=== PATIENT | male | born 1935 | race Caucasian/White ===

== ENCOUNTER 2018-04-07 09:41 | Emergency (ER) | payer OTHER, MEDICARE ==
[2018-04-07] MEDS ORDERED: TETANUS & DIPHTHERIA TOX,ADULT 0.5 ML VIAL ONE (10:08)
[2018-04-07] MEDS ORDERED: LIDOCAINE 1% 20 ML MDV ONE (10:08)
--- NOTE | 2018-04-07 10:37 | ER ---
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 Transition of care: patient was not received from another setting of care. Onset of symptoms was April 07, 2018 at 09:00. Initial Sepsis Screen: Does the patient meet any 2 criteria? No. Patient's initial sepsis screen is negative. Does the patient have a suspected source of infection? No. Patient's initial sepsis screen is negative. Care prior to arrival: None. 09:58 Method Of Arrival: Ambulatory 09:58 Acuity: JOLANTA 4 ch Triage Assessment: 10:01 General: Appears in no apparent distress. comfortable. 10:55 General: Behavior is calm, cooperative, appropriate for age. Pain: Complains of pain in sg dorsal aspect of proximal phalanx of left thumb. Historical: - Allergies: 10:01 No Known Allergies; - Home Meds: 10:01 Eliquis oral oral [Active]; Benicar oral oral [Active]; Sotalol Oral [Active]; gabapentin oral oral [Active]; Tylenol #3 Oral [Active]; - PMHx: 10:01 Hypertension; Atrial Fib; CVA; 12/2015; enlarged prostate; Kidney stones; - PSHx: 10:01 back sx; Hernia repair; prostate sx; - Immunization history:: Adult Immunizations up to date, Last tetanus immunization: < 10 years ago. - Social history:: Smoking status: Patient/guardian denies using tobacco, Patient/guardian denies using alcohol, street drugs. Screenin:55 Abuse screen: Denies threats or abuse. Denies injuries from another. Nutritional sg screening: No deficits noted. Tuberculosis screening: No symptoms or risk factors identified. Never had TB. Fall Risk None identified. Assessment: 10:55 Reassessment: Patient is alert, oriented x 3, equal unlabored respirations, skin aa5 warm/dry/pink. Vital Signs: 10:01 BP 123 / 84; Pulse 68; Resp 15; Temp 98.3; Pulse Ox 99% on R/A; Weight 104.33 kg; Height 6 ft. 3 in. (190.50 cm); Pain 0/10; 10:01 Body Mass Index 28.75 (104.33 kg, 190.50 cm) ED Course: 09:45 Patient arrived in ED. sb2 09:59 Triage completed. 10:01 Arm band placed on left wrist. Patient placed in an exam room, on a stretcher. 10:02 Becca Lai FNP-C is [facility]. kb 10:02 Miles Deluca MD is Attending Physician. kb 10:03 Phillip Garvin, RN is Primary Nurse. sg 10:30 Assist provider with laceration repair on left thumb using sutures. Set up tray. aa5 Performed by Becca ARCINIEGA Dressed with Adaptic, Kerlix, Neosporin, Patient tolerated well. 10:40 Patient did not have IV access during this emergency room visit. sg 10:50 Patient has correct armband on for positive identification. Bed in low position. Call sg light in reach. Pulse ox on. NIBP on. Administered Medications: 10:11 Drug: Tetanus-Diphtheria Toxoid Adult 0.5 ml {Informatics Nurse Specialist: [employer]. Exp: sg 07/01/2020. Lot #: [id number]. } Route: IM; Site: right deltoid; 10:55 Follow up: Response: No adverse reaction aa5 10:12 Drug: Lidocaine (1 %) 1 vials {Note: medication administered by Edwardo MCLEOD} Volume: sg 20 ml; Route: Infiltration; Outcome: 10:36 Discharge ordered by MD. kb 10:55 Discharged to home ambulatory, with family. aa5 10:55 Condition: good 10:55 Discharge instructions given to patient, family, Instructed on discharge instructions, follow up and referral plans. wound care, Demonstrated understanding of instructions, follow-up care, wound care. 10:57 Patient left the ED. aa5 Signatures: Becca Lai FNP-C FNP-Ckb Hammond, Christina RN RN Phillip Garvin RN RN Karmen Polo RN RN aa5 Niesha Murdock sb2 Corrections: (The following items were deleted from the chart) 10:17 09:58 Acuity: JOLANTA 3 ch ch
--- NOTE | 2018-04-07 10:37 | EDPHYS ---
Physician Documentation [facility] Name: Madi Manning Age: 82 yrs Sex: Male : 1935 Arrival Date: 04/07/2018 Time: 09:45 Bed 8 Private MD: ED Physician Miles Deluca HPI: 04/07 10:07 This 82 yrs old Male presents to ER via Ambulatory with complaints of kb LACERATION TO THUMB. 10:07 The patient has a laceration related to: working with salt grinder that slipped and got left kb thumb occurred at home, and there are no complicating factors. The injury was accidental. The laceration(s) is(are) located on the dorsal aspect of proximal phalanx of left thumb. Onset: The symptoms/episode began/occurred just prior to arrival. Associated signs and symptoms: The patient has no apparent associated signs or symptoms. The patient has not experienced similar symptoms in the past. The patient has not recently seen a physician. Historical: - Allergies: 10:01 No Known Allergies; ch - Home Meds: 10:01 Eliquis oral oral [Active]; Benicar oral oral [Active]; Sotalol Oral [Active]; ch gabapentin oral oral [Active]; Tylenol #3 Oral [Active]; - PMHx: 10:01 Hypertension; Atrial Fib; CVA; 12/2015; enlarged prostate; Kidney stones; ch - PSHx: 10:01 back sx; Hernia repair; prostate sx; ch - Immunization history:: Adult Immunizations up to date, Last tetanus immunization: < 10 years ago. - Social history:: Smoking status: Patient/guardian denies using tobacco, Patient/guardian denies using alcohol, street drugs. ROS: 10:08 Constitutional: Negative for fever, chills, and weight loss, Cardiovascular: Negative kb for chest pain, palpitations, and edema, Respiratory: Negative for shortness of breath, cough, wheezing, and pleuritic chest pain, Abdomen/GI: Negative for abdominal pain, nausea, vomiting, diarrhea, and constipation, MS/Extremity: Negative for injury and deformity, Neuro: Negative for headache, weakness, numbness, tingling, and seizure. 10:08 Skin: Positive for laceration(s), of the dorsal aspect of proximal phalanx of left thumb. Exam: 10:08 Constitutional: This is a well developed, well nourished patient who is awake, alert, kb and in no acute distress. Head/Face: Normocephalic, atraumatic. Chest/axilla: Normal chest wall appearance and motion. Nontender with no deformity. No lesions are appreciated. Cardiovascular: Regular rate and rhythm with a normal S1 and S2. No gallops, murmurs, or rubs. Normal PMI, no JVD. No pulse deficits. Respiratory: Lungs have equal breath sounds bilaterally, clear to auscultation and percussion. No rales, rhonchi or wheezes noted. No increased work of breathing, no retractions or nasal flaring. Abdomen/GI: Soft, non-tender, with normal bowel sounds. No distension or tympany. No guarding or rebound. No evidence of tenderness throughout. MS/ Extremity: Pulses equal, no cyanosis. Neurovascular intact. Full, normal range of motion. Neuro: Awake and alert, GCS 15, oriented to person, place, time, and situation. Cranial nerves II-XII grossly intact. Motor strength 5/5 in all extremities. Sensory grossly intact. Cerebellar exam normal. Normal gait. 10:08 Skin: injury, laceration(s), the wound is approximately 4 cm(s), of the dorsal aspect of proximal phalanx of left thumb, that can be described as clean, no foreign body, linear, without bleeding. Vital Signs: 10:01 BP 123 / 84; Pulse 68; Resp 15; Temp 98.3; Pulse Ox 99% on R/A; Weight 104.33 kg; ch Height 6 ft. 3 in. (190.50 cm); Pain 0/10; 10:01 Body Mass Index 28.75 (104.33 kg, 190.50 cm) Laceration: 10:35 Wound Repair of 4cm ( 1.6in ) subcutaneous laceration to dorsal aspect of proximal kb phalanx of left thumb. Linear shaped.. Distal neuro/vascular/tendon intact. Anesthesia: Wound infiltrated with 4 mls of 1% lidocaine. Wound prep: Extensive cleansing with hibiclenz by me, Wound irrigation with saline by wy, Wound explored moderately. Skin closed with 5 5-0 Prolene using interrupted sutures and sterile technique. Dressed with Neosporin, non-adherent dressing. Patient tolerated well. MDM: 10:02 Patient medically screened. kb 10:08 Data reviewed: vital signs, nurses notes. Data interpreted: Pulse oximetry: on room air kb is 99 %. Interpretation: normal. 10:35 Counseling: I had a detailed discussion with the patient and/or guardian regarding: the kb historical points, exam findings, and any diagnostic results supporting the discharge/admit diagnosis, the need for outpatient follow up, a family practitioner, to return to the emergency department if symptoms worsen or persist or if there are any questions or concerns that arise at home. 04/07 10:07 Order name: Prolene, Sutures; Complete Time: 10:12 kb 04/07 10:07 Order name: Dressing - Wound; Complete Time: 10:12 kb 04/07 10:07 Order name: Gloves, Sterile; Complete Time: 10:12 kb 04/07 10:07 Order name: Setup Suture Tray; Complete Time: 10:12 kb Administered Medications: 10:11 Drug: Tetanus-Diphtheria Toxoid Adult 0.5 ml {Registered Account Administrator: [employer]. Exp: sg 07/01/2020. Lot #: [id number]. } Route: IM; Site: right deltoid; 10:55 Follow up: Response: No adverse reaction aa5 10:12 Drug: Lidocaine (1 %) 1 vials {Note: medication administered by Edwardo NATARAJAN.} Volume: sg 20 ml; Route: Infiltration; Disposition: 22:19 Co-signature as Attending Physician, Miles Deluca MD I agree with the assessment and kdr plan of care. Disposition: 04/07/18 10:36 Discharged to Home. Impression: Laceration without foreign body of left thumb without damage to nail. - Condition is Stable. - Discharge Instructions: Laceration Care, Adult, Orax-ph-Iwne. - Medication Reconciliation Form, Thank You Letter, Antibiotic Education, Prescription Opioid Use form. - Follow up: Emergency Department; When: As needed; Reason: Worsening of condition. Follow up: Private Physician; When: 2 - 3 days; Reason: Recheck today's complaints, Continuance of care, Re-evaluation by your physician. - Notes: Have sutures removed in 10 days Keep clean and dry Watch for signs of infection, including redness, swelling, drainage and warmth Signatures: Becca Lai, DARENC DELGADO-Adelaida Reynolds, RN RN ch Phillip Garvin RN RN sg Miles Deluca MD MD [facility] Karmen Polo, JAYASHREE RN aa5 Corrections: (The following items were deleted from the chart) 10:57 10:36 04/07/2018 10:36 Discharged to Home. Impression: Laceration without foreign body aa5 of left thumb without damage to nail. Condition is Stable. Forms are Medication Reconciliation Form, Thank You Letter, Antibiotic Education, Prescription Opioid Use. Follow up: Emergency Department; When: As needed; Reason: Worsening of condition. Follow up: Private Physician; When: 2 - 3 days; Reason: Recheck today's complaints, Continuance of care, Re-evaluation by your physician. kb
== END 2018-04-07 10:57 | disposition home or self-care (01) ==
LOC: ER 09:41
PROC: 0JQK0ZZ Repair Left Hand Subcutaneous Tissue and Fascia, Open Approach (ICD-10-PCS; principal; 2018-04-07)
DX: S61.012A Laceration without foreign body of left thumb without damage to nail, initial encounter (principal); W29.8XXA Contact with other powered hand tools and household machinery, initial encounter; Y93.89 Activity, other specified; Y92.009 Unspecified place in unspecified non-institutional (private) residence as the place of occurrence of the external cause; Z23 Encounter for immunization; I10 Essential (primary) hypertension; I48.91 Unspecified atrial fibrillation; Z79.01 Long term (current) use of anticoagulants
CPT/HCPCS: 90714; 99283

== ENCOUNTER 2018-04-19 09:26 | Emergency (ER) | payer OTHER, MEDICARE ==
--- NOTE | 2018-04-19 09:39 | EDPHYS ---
Physician Documentation [facility] Name: Madi Manning Age: 82 yrs Sex: Male : 1935 Arrival Date: 04/19/2018 Time: 09:29 Bed Treatment Private MD: Goyo Salazar V ED Physician Juve Powell HPI: 04/19 09:43 This 82 yrs old Male presents to ER via Ambulatory with complaints of Suture kb Removal. 09:43 The patient has sutures on the palmar aspect of proximal phalanx of left thumb. kb Previous treatment: The patient was initially treated on April 07, 2018, the care was rendered at [facility]. Sutures/artem progress: The patient has no c/o's. The wound is well-healing with no redness, swelling, discharge, or dehiscence reported. The patient has not experienced similar symptoms in the past. The patient has been recently seen at the [facility] Emergency Department. Historical: - Allergies: 09:32 No Known Allergies; lk1 - PMHx: 09:32 Atrial Fib; CVA; 12/2015; enlarged prostate; Hypertension; Kidney stones; lk1 - PSHx: 09:32 back sx; prostate sx; Hernia repair; lk1 - Immunization history:: Adult Immunizations up to date. - Social history:: Smoking status: Patient/guardian denies using tobacco. ROS: 09:43 Constitutional: Negative for fever, chills, and weight loss, Cardiovascular: Negative kb for chest pain, palpitations, and edema, Respiratory: Negative for shortness of breath, cough, wheezing, and pleuritic chest pain, Abdomen/GI: Negative for abdominal pain, nausea, vomiting, diarrhea, and constipation, MS/Extremity: Negative for injury and deformity, Neuro: Negative for headache, weakness, numbness, tingling, and seizure. 09:43 Skin: Positive for laceration(s), sutures in place. Exam: 09:43 Constitutional: This is a well developed, well nourished patient who is awake, alert, kb and in no acute distress. Head/Face: Normocephalic, atraumatic. Chest/axilla: Normal chest wall appearance and motion. Nontender with no deformity. No lesions are appreciated. Cardiovascular: Regular rate and rhythm with a normal S1 and S2. No gallops, murmurs, or rubs. Normal PMI, no JVD. No pulse deficits. Respiratory: Lungs have equal breath sounds bilaterally, clear to auscultation and percussion. No rales, rhonchi or wheezes noted. No increased work of breathing, no retractions or nasal flaring. Abdomen/GI: Soft, non-tender, with normal bowel sounds. No distension or tympany. No guarding or rebound. No evidence of tenderness throughout. MS/ Extremity: Pulses equal, no cyanosis. Neurovascular intact. Full, normal range of motion. Neuro: Awake and alert, GCS 15, oriented to person, place, time, and situation. Cranial nerves II-XII grossly intact. Motor strength 5/5 in all extremities. Sensory grossly intact. Cerebellar exam normal. Normal gait. 09:43 Skin: Wound recheck: Suture laceration closure: the wound is healing well, the edges are well approximated, no evidence of dehiscence, no drainage, no erythema, no swelling. Vital Signs: 09:33 BP 156 / 82; Pulse 68; Resp 15; Temp 97.0(TE); Pulse Ox 96% on R/A; Weight 106.59 kg lk1 (R); Height 6 ft. 3 in. (190.50 cm) (R); Pain 0/10; 09:33 Body Mass Index 29.37 (106.59 kg, 190.50 cm) lk1 Procedures: 09:44 Suture/Staple removal: Removed 4 sutures, from palmar aspect of proximal phalanx of kb left thumb, site appears well healed, dressed with band aid, Patient tolerated well. MDM: 09:38 Patient medically screened. kb 09:44 Data reviewed: vital signs, nurses notes. Data interpreted: Pulse oximetry: on room air kb is 96 %. Interpretation: normal. Counseling: I had a detailed discussion with the patient and/or guardian regarding: the historical points, exam findings, and any diagnostic results supporting the discharge/admit diagnosis, the need for outpatient follow up, a family practitioner, to return to the emergency department if symptoms worsen or persist or if there are any questions or concerns that arise at home. Administered Medications: No medications were administered Disposition: 09:48 Co-signature as Attending Physician, Juve Powell MD. rn Disposition: 04/19/18 09:39 Discharged to Home. Impression: Encounter for removal of sutures. - Condition is Stable. - Discharge Instructions: Suture Removal, Care After. - Medication Reconciliation Form, Thank You Letter, Antibiotic Education, Prescription Opioid Use form. - Follow up: Emergency Department; When: As needed; Reason: Worsening of condition. Follow up: Private Physician; When: 2 - 3 days; Reason: Recheck today's complaints, Continuance of care, Re-evaluation by your physician. Signatures: Becca Lai FNP-Jaylene NATARAJAN-Juve Barrera MD MD rn Ivania Mart RN RN lk1 Corrections: (The following items were deleted from the chart) 09:43 09:39 04/19/2018 09:39 Discharged to Home. Impression: Encounter for removal of kb sutures. Condition is Stable. Forms are Medication Reconciliation Form, Thank You Letter, Antibiotic Education, Prescription Opioid Use. Follow up: Emergency Department; When: As needed; Reason: Worsening of condition. Follow up: Private Physician; When: 2 - 3 days; Reason: Recheck today's complaints, Continuance of care, Re-evaluation by your physician. kb
--- NOTE | 2018-04-19 09:39 | ER ---
Nurse's Notes [facility] Name: Madi Manning Age: 82 yrs Sex: Male : 1935 Arrival Date: 04/19/2018 Time: 09:29 Bed Treatment Private MD: Goyo Salazar V Diagnosis: Encounter for removal of sutures Presentation: 04/19 09:30 Presenting complaint: Patient states: "I just need to get these stitches out.". lk1 Transition of care: patient was not received from another setting of care. Onset of symptoms is unknown. Risk Assessment: Do you want to hurt yourself or someone else? Patient reports no desire to harm self or others. Initial Sepsis Screen: Does the patient meet any 2 criteria? No. Patient's initial sepsis screen is negative. Does the patient have a suspected source of infection? No. Patient's initial sepsis screen is negative. Care prior to arrival: None. 09:30 Method Of Arrival: Ambulatory lk1 09:30 Acuity: JOLANTA 5 lk1 Triage Assessment: 09:32 General: Appears in no apparent distress. Behavior is calm, cooperative, appropriate lk1 for age. Pain: Denies pain. Derm: Wound noted palmar aspect of proximal phalanx of left thumb Wound is 5 sutures to left thumb, healing well. Historical: - Allergies: 09:32 No Known Allergies; lk1 - PMHx: 09:32 Atrial Fib; CVA; 12/2015; enlarged prostate; Hypertension; Kidney stones; lk1 - PSHx: 09:32 back sx; prostate sx; Hernia repair; lk1 - Immunization history:: Adult Immunizations up to date. - Social history:: Smoking status: Patient/guardian denies using tobacco. Vital Signs: 09:33 BP 156 / 82; Pulse 68; Resp 15; Temp 97.0(TE); Pulse Ox 96% on R/A; Weight 106.59 kg lk1 (R); Height 6 ft. 3 in. (190.50 cm) (R); Pain 0/10; 09:33 Body Mass Index 29.37 (106.59 kg, 190.50 cm) lk1 ED Course: 09:29 Patient arrived in ED. mr 09:29 Goyo Salazar MD is Private Physician. mr 09:31 Triage completed. lk1 09:34 Becca Lai FNP-C [facility]. kb 09:34 Juve Powell MD is Attending Physician. kb 09:35 Arm band placed on right wrist. lk1 Administered Medications: No medications were administered Outcome: 09:39 Discharge ordered by . kb 09:43 Patient left the ED. kb Signatures: Becca Lai FNP-C [employer]OOK [employer]-Deena Lee mr Ivania Mart, RN RN lk1
== END 2018-04-19 09:43 | disposition home or self-care (01) ==
LOC: ER 09:26
DX: Z48.02 Encounter for removal of sutures (principal)
CPT/HCPCS: 99281

== ENCOUNTER 2019-01-26 16:42 | Emergency (ER) | payer OTHER, MEDICARE ==
--- OUTSIDE RECORDS SUMMARY | 2019-01-26 16:48 | XMS REPORT | Continuity of Care Document ---
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/[address] LF Active 12/24/[address] Hyperlipidemia Resolved Problem 12/29/2016 [facility] HTN (<span Resolved Problem 12/29/2016 [facility] ID="[id number]" Medical >Confirmed</span> Center ) CEREBRAL Active [facility] INFARCTION, Medical UNSPECIFIED Center Medications Medication Details Route Status Patient Ordering Order Source Instructions Provider Date Hydrochlorothiazide 1 tab, PO, Inactive 12/26[facility] Graciela 12.5 MG / Losartan Daily, 0 2016 Medical Potassium 100 MG Refill(s) Center Oral Tablet Eliquis 5 mg, 1 tab, Inactive 12/26[facility] Route: PO, Drug 2017 Medical form: TAB, Center Q12H, Dosing Weight 100, kg, Priority: NOW, Start date: 12/26/16 9:17:00 [employer]I [employer]ACCAR[employer]ER, Duration: 30 day, Stop date: 01/25/17 9:00:00 CSTNotes: Same as: Eliquis ciprofloxacin 250 250 mg=1 tab, Active 12/26[facility] [place] mg oral tablet PO, Q12H, X 3 2016 day, # 6 tab, 0 Center Refill(s) Occupational See Active 12/26[facility] Graciela Therapy Instructions, 2017 [facility] Evaluate and Treat DX: R MCA ischemic stroke, # 1 appl, 0 Refill(s) Physical Therapy See Active 12/26[facility] [address] [facility]x: right MCA stroke, # 1 appl, 0 Refill(s) apixaban 5 MG Oral 5 mg=1 tab, PO, Active 12/26[facility] Graciela Tablet [Eliquis] BID, # 60 tab, 2017 Medical 3 Refill(s) Center ciprofloxacin 250 250 mg=1 tab, Inactive 12/26[facility] [place] mg oral tablet PO, Q12H, X 10 2016 day, # 20 tab, Center 0 Refill(s) atorvastatin 40 mg 40 mg=1 tab, Active [place] oral tablet PO, Bedtime, # 2017 Medical 30 tab, 3 Center Refill(s) sotalol 80 mg oral 40 mg=0.5 tab, Active [place] tablet PO, Bedtime, # 2017 Medical 30 tab, 3 Center Refill(s) Rocephin 1 gm, Route: Inactive [place] IVPB, Drug 2016 Medical form: PDR/INJ, Center [id number], Dosing Weight 100, kg, Start date: 12/26/16 7:00:00 MINI BACCARAT DEALER, Stop date: 12/28/16 8:00:00 CSTNotes: (Same As: Rocephin). Use with 100 mL NS and infuse over 30 min MEDICATION WASTE Product Size: 1000 mg Product Wasted: ___ mg Sotalol 40 mg, Route: Inactive [place] Hydrochloride 80 MG PO, Q12H, 2016 Medical Oral Tablet Dosing Weight Center 100, kg, Start date: 12/25/16 21:00:00 MINI BACCARAT DEALER, Duration: 30 day, Stop date: 01/24/17 9:00:00 MINI [employer]ACCARAT DEALER sotalol 40 mg, 0.5 tab, No Longer [place] Route: PO, Drug Active 2016 Medical form: TAB, Center Bedtime, Start date: 12/25/16 21:00:00 MINI BACCARAT DEALER, Duration: 30 day, Stop date: 01/23/17 21:00:00 CSTNotes: (Same As: Betapace) 40 mg=1/2 x 80 mg TAB pneumococcal 0.5 mL, Route: Inactive [place] 13-valent vaccine IM, Drug Form: 2017 Medical INJ, Daily, Center Start date: 12/25/16 18:00:00 MINI BACCARAT DEALER, Duration: 1 doses or times, Stop date: 12/25/16 18:00:00 CSTNotes: (Same as: Prevnar 13) gabapentin 400 MG 400 mg, 1 cap, No Longer [place] Oral Capsule Route: PO, Drug Active 2016 Medical form: CAP, TID, Center Dosing Weight 100, kg, Start date: 12/25/16 9:00:00 MINI BACCARAT DEALER, Duration: 30 day, Stop date: 01/23/17 17:00:00 CSTNotes: (Same as: Neurontin) Aspirin 325 MG 325 mg, 1 tab, No Longer [place] Enteric Coated Route: PO, Drug Active 2016 Medical Tablet form: ECTAB, Center Daily, Dosing Weight 100, kg, Start date: 12/25/16 9:00:00 MINI BACCARAT DEALER, Duration: 30 day, Stop date: 01/23/17 9:00:00 CSTNotes: (Do Not Crush) Do not crush or chew. Streptococcus 0.5 mL, Route: Inactive [place] pneumoniae serotype IM, Drug Form: 2016 Medical 1 capsular antigen INJ, Daily, Center diphtheria [id number] Start date: protein conjugate 12/25/16 vaccine / 9:00:00 MINI BACCARAT DEALER, Streptococcus Duration: 1 pneumoniae serotype doses or times, 14 capsular antigen Stop date: diphtheria [id number] 12/25/16 protein conjugate 9:00:00 vaccine / CSTNotes: (Same Streptococcus as: Prevnar 13) pneumoniae serotype 18C capsular antigen d gabapentin 400 MG 400 mg, 1 cap, No Longer [place] Oral Capsule Route: PO, Drug Active 2016 Medical form: CAP, Center ONCE, Dosing Weight 100, kg, Start date: 12/24/16 23:47:00 MINI BACCARAT DEALER, Stop date: 12/24/16 23:47:00 CSTNotes: (Same as: Neurontin) Saline Flush 0.9% 10 ml, Route: No Longer [place] IVP, Drug Form: Active 2016 Medical INJ, Dosing Center Weight 100, kg, Q12H, Start date: 12/24/16 21:00:00 MINI BACCARAT DEALER, Duration: 30 day, Stop date: 01/23/17 9:00:00 CSTNotes: (Same as: BD Posiflush) Docusate 100 mg, 1 cap, No Longer [facility] Route: PO, Drug Active 2016 Medical form: CAP, Center Q12H, Dosing Weight 100, kg, Start date: 12/24/16 21:00:00 MINI BACCARAT DEALER, Duration: 30 day, Stop date: 01/23/17 9:00:00 CSTNotes: (Same as: Colace) (Do Not Crush) atorvastatin 40 mg, 1 tab, No Longer [facility] Route: PO, Drug Active 2016 Medical form: TAB, Center Bedtime, Dosing Weight 100, kg, Start date: 12/24/16 21:00:00 MINI BACCARAT DEALER, Stop date: 01/22/17 21:00:00 CSTNotes: (Same as: Lipitor) pneumococcal 0.5 mL, Route: No Longer [place] 13-valent vaccine IM, Drug Form: Active 2017 Medical INJ, Daily, Center Start date: 12/24/16 18:00:00 MINI BACCARAT DEALER, Duration: 1 doses or times, Stop date: 12/24/16 18:00:00 CSTNotes: (Same as: Prevnar 13) sennosides, GROUP HOME 8.6 mg, 1 tab, No Longer [facility] Route: PO, Drug Active 2016 Medical Form: TAB, Center Dosing Weight 100, kg, BID, Start date: 12/24/16 17:00:00 MINI BACCARAT DEALER, Duration: 30 day, Stop date: 01/23/17 9:00:00 CSTNotes: (Same as: Enocot) heparin sodium, 5,000 unit, 1 No Longer [place] porcine 2500 UNT/ML mL, Route: Active 2016 Medical Injectable Solution SUB-Q, Drug Center form: INJ, Q8H, Dosing Weight 100, kg, Start date: 12/24/16 16:00:00 MINI BACCARAT DEALER, Duration: 30 day, Stop date: 01/23/17 8:00:00 CSTNotes: porcine heparin Dextrose 50% 25 gm, 50 mL, No Longer [place] Syringe Route: IVP, Active 2016 Medical Drug Form: INJ, Center Dosing Weight 100, kg, PRN, PRN Blood Glucose Results, Start date: 12/24/16 15:18:00 MINI BACCARAT DEALER, Duration: 30 day, Stop date: 01/23/17 15:17:00 MINI BACCARAT DEALER Glucagon 1 mg, Route: No Longer [place] IM, Drug form: Active 2016 Medical PDR/INJ, PRN, Center Dosing Weight 100, kg, PRN Blood Glucose Results, Start date: 12/24/16 15:18:00 MINI BACCARAT DEALER, Duration: 30 day, Stop date: 01/23/17 15:17:00 MINI BACCARAT DEALER sodium phosphate + 30 mmol, 10 mL, No Longer [place] sodium chloride Route: IVPB, Active 2017 Medical 0.9% INJ 250 mL PRN, Dosing Center Weight 100, kg, PRN Abnormal Lab Result, Start date: 12/24/16 15:18:00 MINI BACCARAT DEALER, Duration: 30 day, Stop date: 01/23/17 15:17:00 MINI BACCARAT DEALER, FOR ICU USE ONLY potassium chloride 10 mEq, 50 mL, No Longer [place] Route: IVPB, Active 2016 Medical Drug form: INJ, Center PRN, Dosing Weight 100, kg, PRN Abnormal Lab Result, Via peripheral line, Start date: 12/24/16 15:18:00 MINI BACCARAT DEALER, Duration: 30 day, Stop date: 01/23/17 15:17:00 MINI BACCARAT DEALER, FOR ICU USE ONLYNotes: (Same as: KCL) Infuse over 2 hours. Calcium Gluconate 1 gm, 10 mL, No Longer [place] Route: IVPB, Active 2016 Medical PRN, Dosing Center Weight 100, kg, PRN Abnormal Lab Result, Start date: 12/24/16 15:18:00 MINI BACCARAT DEALER, Duration: 30 day, Stop date: 01/23/17 15:17:00 MINI BACCARAT DEALER, FOR ICU USE ONLYNotes: WASTE: F/P - Sink; E - Municipal Trash Bin Calcium Carbonate 500 mg, 1 tab, No Longer [place] 500 MG Chewable Route: PO, Drug Active 2016 Medical Tablet form: CHEWTAB, Center PRN, Dosing Weight 100, kg, PRN Abnormal Lab Result, FOR ICU USE ONLY, Start date: 12/24/16 15:18:00 MINI BACCARAT DEALER, Duration: 30 day, Stop date: 01/23/17 15:17:00 CSTNotes: (Same As: Tums) Calcium Carbonate 500 qf=608 mg elemental calcium Dose= mg calcium carbonate ( mg elemental calcium) Magnesium Oxide 800 mg, 2 tab, No Longer [place] Route: PO, Drug Active 2016 Medical form: TAB, PRN, Center Dosing Weight 100, kg, PRN Abnormal Lab Result, FOR ICU USE ONLY, Start date: 12/24/16 15:18:00 MINI BACCARAT DEALER, Duration: 30 day, Stop date: 01/23/17 15:17:00 CSTNotes: (Same as: Mag-Ox 400) Magnesium oxide [id number] elemental magnesium Dose=____mg magnesium oxide (___mg elemental magnesium) potassium phosphate 30 mmol, 10 mL, No Longer + sodium chloride Route: IVPB, Active 2017 Medical 0.9% INJ 250 mL PRN, Dosing Center Weight 100, kg, PRN Abnormal Lab Result, Start date: 12/24/16 15:18:00 MINI BACCARAT DEALER, Duration: 30 day, Stop date: 01/23/17 15:17:00 MINI BACCARAT DEALER, FOR ICU USE ONLYNotes: (Same as: K Phosphate.) 1 mMol phoshate has 1.47 mEq potassium Infuse over 4 hours potassium 2 pkt, Route: No Longer [place] phosphate-sodium PO, Drug Form: Active 2017 Medical phosphate 250 PDR/REC, Dosing Center mg-280 mg-160 mg Weight 100, kg, oral powder for PRN, PRN reconstitution Abnormal Lab Result, FOR ICU USE ONLY, Start date: 12/24/16 15:18:00 MINI BACCARAT DEALER, Duration: 30 day, Stop date: 01/23/17 15:17:00 CSTNotes: (Same as: Phos-NaK) Each 1.5 gm pkt has 250mg phosphorous. Mix w/2.5oz water and stir. Magnesium Sulfate 2 gm, 50 mL, No Longer [place] Route: IVPB, Active 2016 Medical Drug form: INJ, Center PRN, Dosing Weight 100, kg, PRN Abnormal Lab Result, Start date: 12/24/16 15:18:00 MINI BACCARAT DEALER, Duration: 30 day, Stop date: 01/23/17 15:17:00 MINI BACCARAT DEALER, FOR ICU USE ONLYNotes: WASTE: F/P - Sink; E - Municipal Trash Bin sotalol 80 mg oral 80 mg=1 tab, No Longer [place] tablet PO, Daily, 0 Active 2016 Medical Refill(s) [place] gabapentin 400 MG 400 mg=1 cap, Active [place] Oral Capsule PO, TID, # 90 2016 Medical cap, 1 Center Refill(s) tramadol 50 mg=1 tab, Active [place] hydrochloride 50 MG PO, BID, # 30 2016 Medical Oral Tablet tab, 0 Center Refill(s) sodium chloride 1,000 mL, Rate: No Longer [place] 0.9% 1000 ml INJ 75 ml/hr, Active 2016 Medical 1,000 mL Infuse over: Center 13.3 hr, Route: IV, Dosing Weight 100 kg, Total Volume: 1,000, Start date: 12/24/16 14:56:00 MINI BACCARAT DEALER, Duration: 30 day, Stop date: 01/23/17 14:55:00 MINI BACCARAT DEALER Flumazenil 0.2 mg, Route: Inactive [facility] IVP, PRN, 2016 Medical Dosing Weight Center 100, kg, PRN Benzodiazepine Reversal, Initial dose, Start date: 12/24/16 12:56:00 MINI BACCARAT DEALER, Duration: 30 day, Stop date: 01/23/17 12:55:00 MINI BACCARAT DEALER Naloxone 0.4 mg, Route: Inactive [facility] IVP, Q2MIN, 2016 Medical Dosing Weight Center 100, kg, PRN Narcotic Reversal, Start date: 12/24/16 12:56:00 MINI BACCARAT DEALER, Duration: 8 doses or times, Stop date: Limited # of times Ondansetron 4 mg, Route: Inactive [facility] IVP, ONCE, 2016 Medical Dosing Weight Center 100, kg, PRN Nausea & Vomiting, Start date: 12/24/16 12:56:00 MINI BACCARAT DEALER Hydromorphone 0.5 mg, Route: Inactive [facility] IVP, Q5Min, 2016 Medical Dosing Weight Center 100, kg, PRN Pain Score 7-10, Start date: 12/24/16 12:56:00 MINI BACCARAT DEALER, Duration: 4 doses or times, Stop date: Limited # of times Hydralazine 10 mg, Route: Inactive [facility] IVP, Q20Min, 2016 Medical Dosing Weight Center 100, kg, PRN Elevated BP, Start date: 12/24/16 12:56:00 MINI BACCARAT DEALER, Duration: 2 doses or times, Stop date: Limited # of times Labetalol 10 mg, Route: Inactive [place] IVP, Q5Min, 2016 Medical Dosing Weight Center 100, kg, PRN Elevated BP, Start date: 12/24/16 12:56:00 MINI BACCARAT DEALER, Duration: 5 doses or times, Stop date: Limited # of times Saline Flush 0.9% 10 ml, Route: No Longer [facility] IVP, Drug Form: Active 2017 Medical INJ, Dosing Center Weight 100, kg, PRN, PRN Line Flush, Start date: 12/24/16 12:28:00 MINI BACCARAT DEALER, Duration: 30 day, Stop date: 01/23/17 12:27:00 CSTNotes: (Same as: BD Posiflush) Sodium Chloride 1,000 mL, Rate: No Longer [facility] 0.154 MEQ/ML 75 ml/hr, Active 2016 Medical Injectable Solution Infuse over: Center 13.3 hr, Route: IV, Dosing Weight 100 kg, Total Volume: 1,000, Start date: 12/24/16 12:28:00 MINI BACCARAT DEALER, Duration: 30 day, Stop date: 01/23/17 12:27:00 MINI BACCARAT DEALER Omnipaque 300 150 ml, Route: Inactive [facility] INTRAARTERIAL, 2017 Medical Dosing Weight Center 100, kg, ONCE, Start date: 12/24/16 11:54:00 MINI BACCARAT DEALER, Stop date: 12/24/16 11:54:00 MINI BACCARAT DEALER iodixanol 100 mL, Route: Inactive [facility] IVP, Drug Form: 2017 Medical SOLN, Dosing Center Weight 100, kg, ONCALL, STAT, Start date: 12/24/16 11:29:00 MINI BACCARAT DEALER, Duration: 1 doses or times, Dose=2.2ml/kg, Max [id number] -- "To be infused by Radiology Staff ONLY" Saline Flush 0.9% 10 mL, Route: No Longer [facility] IVP, Drug Form: Active 2016 Medical INJ, kg, PRN, Center PRN Line Flush, Start date: 12/24/16 11:08:00 MINI BACCARAT DEALER, Duration: 30 day, Stop date: 01/23/17 11:07:00 CSTNotes: (Same as: BD Posiflush) Allergies, Adverse Reactions, Alerts Substance Category Reaction Severity Reaction Status Date Comments Source type Reported Immunizations Immunization Date Given Site Status Last Comments Source Updated pneumococcal 12/25/2016 Left completed Vishal [facility] 13-valent vaccine deltoid [facility] Results Order Name Results Value Reference Date Interpretation Comments Source Range CHEM PANEL Phosphorus 2.5 mg/dL 2.5 - 4.5 12/26 [facility] /[address] [place] [address] CHEM PANEL eGFR 58 12/26 Result Comment: The eGFR is calculated using the CKD-EPI formula. In most young, healthy individuals the eGFR will be >90 mL/ min/1.73m2. The eGFR declines with age. An eGFR of 60-89 may be normal in [facility] mL/min/1.7 some populations, particularly the elderly, for whom the CKD-EPI formula has not been extensively validated. Use of the eGFR is not recommended in the following populations: [address] Individuals with unstable creatinine concentrations, including patients and those with serious co-morbid conditions. Patients with extremes in muscle mass or diet. The data above are obtained from the National Kidney Disease Education Program (NKDEP) which additionally recommends that when the eGFR is used in patients with extremes of body mass index for purposes of drug dosing, the eGFR should be multiplied by the estimated BMI. CHEM PANEL BUN 17 mg/dL 7 - 22 12/[address] CHEM PANEL Glucose Lvl 95 mg/dL 70 - 99 12/[address] CHEM PANEL Potassium Lvl 3.7 meq/L 3.5 - 5.1 12/[address] CHEM PANEL Sodium Lvl 142 meq/L 135 - 145 12/[address] CHEM PANEL Creatinine 1.17 mg/dL 0.50 - 12/26 [facility] Lvl 1.40 [facility] CHEM PANEL CO2 27 meq/L 24 - 32 12/[address] CHEM PANEL Chloride Lvl 108 meq/L 95 - 109 12/[address] CHEM PANEL Calcium Lvl 8.4 mg/dL 8.5 - 10.5 12/[address] CHEM PANEL AGAP 10.7 meq/L 10.0 - 12/26 [facility] 20.0 [facility] CHEM PANEL Magnesium Lvl 2.2 mg/dL 1.8 - 2.4 12/[address] HEMATOLOGY Lymphocytes # 1.1 K/CMM 1.0 - 5.5 12/[address] HEMATOLOGY Segs-Bands # 6.9 K/CMM 1.5 - 8.1 12/[address] HEMATOLOGY Eosinophils # 0.2 K/CMM 0.0 - 0.5 12/[address] HEMATOLOGY Basophils # 0.1 K/CMM 0.0 - 0.2 12/[address] HEMATOLOGY Monocytes # 0.6 K/CMM 0.0 - 0.8 12/[address] [facility] HEMATOLOGY Basophils 0.7 % 0.0 - 1.0 12/26 [facility] HEMATOLOGY Segs 77.6 % 45.0 - 12/26 75.0 [facility] HEMATOLOGY Monocytes 7.1 % 2.0 - 12.0 12/26 [facility] HEMATOLOGY Eosinophils 1.9 % 0.0 - 4.0 12/26 [facility] HEMATOLOGY Lymphocytes 12.7 % 20.0 - 12/26 40.0 [facility] HEMATOLOGY MPV 9.1 fL 7.4 - 10.4 12/26 [facility] HEMATOLOGY Platelet 108 K/CMM 133 - 450 12/26 [facility] HEMATOLOGY RDW 13.8 % 11.5 - 12/26 [facility] 14.5 [facility] HEMATOLOGY WBC 8.9 K/CMM 3.7 - 10.4 12/26 [facility] HEMATOLOGY RBC 4.84 M/CMM 4.70 - 12/26 [facility] 6.10 [facility] HEMATOLOGY Hct 43.3 % 42.0 - 12/26 [facility] 54.0 [facility] HEMATOLOGY MCH 30.0 pg 27.0 - 12/26 [facility] 31.0 [facility] HEMATOLOGY Hgb 14.5 g/dL 14.0 - 12/26 [facility] 18.0 [facility] HEMATOLOGY MCHC 33.6 g/dL 32.0 - 12/26 [facility] 36.0 [facility] HEMATOLOGY MCV 89.4 fL 80.0 - 12/26 [facility] 94.0 [facility] PARATHYROID Ca Norm WB 1.15 1. - 12/26 [facility] PROFILE mMol/L 1. [facility] PARATHYROID Ca Ion WB 1.19 1.05 - 12/26 [facility] PROFILE mMol/L 1. [facility] URINE AND UA Mucus Few /LPF None Seen 12/26 [facility] STOOL /LPF /2016 [facility] URINE AND UA Sq Epi None Seen 12/26 [facility] STOOL /2016 [facility] URINE AND UA <=1.0 0.1 - 1.0 12/26 [facility] STOOL Urobilinogen mg/dL /2016 [facility] URINE AND UA Bacteria Occasional None Seen 12/26 [facility] STOOL /HPF /HPF /2016 [facility] URINE AND UA RBC 1 /HPF 0 - 2 12/26 [facility] URINE AND UA Nitrite Negative Negative 12/26 [facility] (12/25/16 6:01 PM) [place] URINE AND UA WBC 9 /HPF 0 - 5 12/26 [facility] URINE AND UA Leuk Est Large Negative 12/26 [facility] *ABN* [place] (12/25/16 6:01 PM) URINE AND UA Blood Negative Negative 12/26 [facility] (12/25/16 6:01 PM) [place] URINE AND UA Bili Negative Negative 12/26 [facility] *NA* [place] (12/25/16 6:01 PM) URINE AND UA Ketones Negative Negative 12/26 [facility] mg/dL mg/dL [facility] URINE AND UA pH 6.0 5.0 - 8.0 12/26 [facility] URINE AND UA Glucose Negative Negative 12/26 [facility] mg/dL mg/dL [facility] URINE AND UA Protein Negative Negative 12/26 [facility] mg/dL mg/dL [facility] URINE AND UA Turbidity Clear Clear 12/26 [facility] (12/25/16 6:01 PM) [place] URINE AND UA Color Yellow Yellow 12/26 [facility] *NA* [place] (12/25/16 6:01 PM) URINE AND UA Spec Grav 1.012 <=1.030 12/26 [facility] BACTERIAL - MRSA by PCR Negative 12/25 [facility] (12/25/16 1:53 PM) [place] CHEM PANEL eGFR 66 12/25 Result Comment: The eGFR is calculated using the CKD-EPI formula. In most young, healthy individuals the eGFR will be >90 mL/ min/1.73m2. The eGFR declines with age. An eGFR of 60-89 may be normal in [facility] mL/min/1. some populations, particularly the elderly, for whom the CKD-EPI formula has not been extensively validated. Use of the eGFR is not recommended in the following populations: [address] Individuals with unstable creatinine concentrations, including patients and those with serious co-morbid conditions. Patients with extremes in muscle mass or diet. The data above are obtained from the National Kidney Disease Education Program (NKDEP) which additionally recommends that when the eGFR is used in patients with extremes of body mass index for purposes of drug dosing, the eGFR should be multiplied by the estimated BMI. CHEM PANEL Calcium Lvl 8.6 mg/dL 8.5 - 10.5 12/25 [facility] CHEM PANEL AGAP 13.0 meq/L 10.0 - 12/25 [facility] 20.0 [facility] CHEM PANEL Potassium Lvl 4.0 meq/L 3.5 - 5.1 12/[address] CHEM PANEL Chloride Lvl 109 meq/L 95 - 109 12/25 [facility]2016 [facility] CHEM PANEL CO2 24 meq/L 24 - 32 12/[address] CHEM PANEL Creatinine 1.05 mg/dL 0.50 - 12/25 [facility] Lvl 1.40 [facility] CHEM PANEL BUN 14 mg/dL 7 - 12/[address] CHEM PANEL Sodium Lvl 142 meq/L 135 - 145 12/[address] CHEM PANEL Glucose Lvl 107 mg/dL 70 - 99 12/[address] CHEM PANEL Phosphorus 2.4 mg/dL 2.5 - 4.5 12/[address] CHEM PANEL Globulin 3.0 g/dL 2.7 - 4.2 12/[address] CHEM PANEL A/G Ratio 1.0 0.7 - 1.6 12/[address] CHEM PANEL AGAP 10.4 meq/L 10.0 - 12/25 [facility] .0 [facility] CHEM PANEL B/C Ratio 20 6 - 25 12/[address] CHEM PANEL eGFR 62 12/25 Result Comment: The eGFR is calculated using the CKD-EPI formula. In most young, healthy individuals the eGFR will be >90 mL/ min/1.73m2. The eGFR declines with age. An eGFR of 60-89 may be normal in [facility] mL/min/1. some populations, particularly the elderly, for whom the CKD-EPI formula has not been extensively validated. Use of the eGFR is not recommended in the following populations: [address] Individuals with unstable creatinine concentrations, including patients and those with serious co-morbid conditions. Patients with extremes in muscle mass or diet. The data above are obtained from the National Kidney Disease Education Program (NKDEP) which additionally recommends that when the eGFR is used in patients with extremes of body mass index for purposes of drug dosing, the eGFR should be multiplied by the estimated BMI. CHEM PANEL CO2 24 meq/L 24 - 32 12/[address] CHEM PANEL Total Protein 5.9 g/dL 6.4 - 8.4 12/[address] CHEM PANEL Calcium Lvl 7.9 mg/dL 8.5 - 10.5 12/[address] CHEM PANEL AST 12 unit/L 0 - 37 12/[address] CHEM PANEL ALT 15 unit/L 0 - 65 12/[address] CHEM PANEL Alk Phos 51 unit/L 39 - 136 12/[address] CHEM PANEL Albumin Lvl 2.9 g/dL 3.5 - 5.0 12/[address] CHEM PANEL Bili Total 0.8 mg/dL 0.2 - 1.3 12/[address] CHEM PANEL Glucose Lvl 117 mg/dL 70 - 99 12/[address] CHEM PANEL BUN 22 mg/dL 7 - 22 12/[address] CHEM PANEL Creatinine 1.11 mg/dL 0.50 - 12/25 [facility] Lvl 1.40 [facility] CHEM PANEL Sodium Lvl 138 meq/L 135 - 145 12/[address] CHEM PANEL Potassium Lvl 3.4 meq/L 3.5 - 5.1 12/[address] CHEM PANEL Chloride Lvl 107 meq/L 95 - 109 12/[address] CHEM PANEL Phosphorus 2.1 mg/dL 2.5 - 4.5 12/[address] CHEM PANEL Magnesium Lvl 2.2 mg/dL 1.8 - 2.4 12/[address] HEMATOLOGY Basophils # 0.1 K/CMM 0.0 - 0.2 12/[address] HEMATOLOGY Eosinophils # 0.2 K/CMM 0.0 - 0.5 12/[address] HEMATOLOGY Monocytes # 0.7 K/CMM 0.0 - 0.8 12/[address] HEMATOLOGY Lymphocytes # 1.5 K/CMM 1.0 - 5.5 12/25 [facility] HEMATOLOGY Eosinophils 2.4 % 0.0 - 4.0 12/25 [facility] HEMATOLOGY Monocytes 6.8 % 2.0 - 12.0 12/25 [facility] HEMATOLOGY Segs-Bands # 7.7 K/CMM 1.5 - 8.1 12/25 [facility] HEMATOLOGY Basophils 1.1 % 0.0 - 1.0 12/25 [facility] HEMATOLOGY Segs 74.9 % 45.0 - 12/25 [facility] 75.0 [facility] HEMATOLOGY Lymphocytes 14.8 % 20.0 - 12/25 [facility] 40.0 [facility] HEMATOLOGY MCHC 34.9 g/dL 32.0 - 12/25 36.0 [facility] HEMATOLOGY MCH 30.8 pg 27.0 - 12/25 [facility] [facility]0 [facility] HEMATOLOGY Platelet 128 K/CMM 133 - 450 12/25 [facility] HEMATOLOGY RDW 14.1 % 11.5 - 12/25 14.5 [facility] HEMATOLOGY RBC 4.74 M/CMM 4.70 - 12/25 [place] 6.10 [facility] HEMATOLOGY WBC 10.3 K/CMM 3.7 - 10.4 12/25 [facility] HEMATOLOGY MPV 9.3 fL 7.4 - 10.4 12/25 [facility] HEMATOLOGY Hgb 14.6 g/dL 14.0 - 12/25 18.0 [facility] HEMATOLOGY MCV 88.3 fL 80.0 - 12/25 [facility] 94.0 [facility] HEMATOLOGY Hct 41.8 % 42.0 - 12/25 [place] 54.0 [facility] PARATHYROID Ca Ion WB 1.16 . - 12/25 [facility] PROFILE mMol/L . [facility] PARATHYROID Ca Norm WB 1.17 . - 12/25 [facility] PROFILE mMol/L . [facility] Brain wo Brain wo EXAM: MRI BRAIN WITHOUT CONTRAST 12/24 - [facility] contrast contrast MRI /2016 - [facility] DATE: 12/24/2016 12:28 PM [employer]ER Read by: Marlon Fay MD Dictated Date/time: 12/25/16 07:59 Electronically Signed by: Marlon Fay MD 12/25/16 08:38 FINAL REPORT INDICATION: 81 years old Male patient with history of Altered level of consciousness. COMPARISON: CT head 12/24/2016 TECHNIQUE: Multiplanar, multisequence MRI of the brain without contrast. FINDINGS: Multifocal areas of diffusion restriction are seen within the right basal ganglia including the right caudate and putamen are noted compatible with acute/ subacute ischemic infarct. No definite hemorrhag ic transformation is identified. No evidence of intracranial hemorrhage. No parenchymal mass, mass effect or midline shift is present. Mild periventricular and subcortical white matter T/FLAIR hyperinte nsity, nonspecific and most commonly secondary to chronic microvascular ischemic changes. No pathologic extra axial fluid is identified. Major intracranial vascular flow voids are preserved. There is pr ominent fatty tissue compatible with lipoma in the left retromaxillary space measuring about 2.8 x 2.1 cm displacing the posterior wall of the left major sinus inferiorly. There is also inferior displac ement of the left orbital floor by excessive intraorbital fatty tissue compared to the right. Otherwise the paranasal sinuses are clear. Small left mastoid effusion is identified. IMPRESSION: 1. Multifocal areas of diffusion restriction are seen within the right basal ganglia compatible with acute/subacute ischemic infarct. No definite hemorrhagic transformation is identified at this time. 2. A 2.8 cm fatty tissue in the left retromaxillary space displacing the posterior wall of the left maxillary sinus anteriorly compatible with lipoma. Inferior displacement of the left orbital floor by extra fatty tissue in the inferior aspect of the left orbit compared to the right. Ophthalmology exam would be helpful to evaluate for enophthalmos. CHEM PANEL Bili Direct 0.2 mg/dL 0.0 - 0.3 12/[address] CHEM PANEL Alk Phos 51 unit/L 39 - 136 12/[address] CHEM PANEL Bili Total 1.0 mg/dL 0.2 - 1.3 12/[address] CHEM PANEL ALT 12 unit/L 0 - 65 12/[address] CHEM PANEL AST 13 unit/L 0 - 37 12/[address] CHEM PANEL Albumin Lvl 3.1 g/dL 3.5 - 5.0 12/[address] CHEM PANEL Total Protein 6.2 g/dL 6.4 - 8.4 12/24 [facility] CHEM PANEL Globulin 3.1 g/dL 2.7 - 4.2 12/24 [facility] CHEM PANEL A/G Ratio 1.0 0.7 - 1.6 12/24 [facility] CHEM PANEL Bili Indirect 0.8 mg/dL 0.0 - 1.0 12/24 [facility] LIPIDS CHD Risk 2.65 4.00 - 12/24 [place] 7.30 [facility] LIPIDS HDL 52 mg/dL >=61 mg/dL 12/24 [facility] LIPIDS Chol 138 mg/dL <=199 12/24 [facility] mg/dL [facility] LIPIDS VLDL 12 12/24 [facility] LIPIDS Trig 59 mg/dL <=149 12/24 [facility] mg/dL [facility] LIPIDS LDL 74 mg/dL <=99 mg/dL 12/24 [facility] (Calculated) [facility] SPECIAL Hgb A1C 5.1 % <=5.6 % 12/24 [facility] CHEMISTRY [facility] BLOOD BANK ABO/Rh A POS 12/24 [facility] RESULTS [facility] BLOOD BANK Antibody Scrn Negative 12/24 [facility] RESULTS [facility] (12/24/16 11:20 AM) Center CHEM PANEL POC 1.1 mg/dL 0.5 - 1.4 12/24 [facility] Creatinine [facility] CARDIAC Troponin-I null 0.00 - 12/24 [facility] ENZYMES 0.40 [facility] CARDIAC CK MB null 0.5 - 3.6 12/24 [facility] ENZYMES [facility] CARDIAC Total CK 36 unit/L 12 - 191 12/24 [facility] ENZYMES [facility] CARDIAC CK-MB INDEX null 0.0 - 2.5 12/24 [facility] ENZYMES [facility] HEMATOLOGY PT 14.9 s 12.0 - 12/24 [place] 14.7 [facility] HEMATOLOGY INR 1.15 0.85 - 12/24 [place] 1.17 [facility] HEMATOLOGY PTT 32.1 s 22.9 - 12/24 [place] 35.8 [facility] HEMATOLOGY MCV 89.5 fL 80.0 - 12/24 [place] 94.0 [facility] HEMATOLOGY RDW 14.1 % 11.5 - 12/24 [place] 14.5 [facility] HEMATOLOGY MCHC 33.6 g/dL 32.0 - 12/24 36.0 [facility] HEMATOLOGY MCH 30.1 pg 27.0 - 12/24 31.0 [facility] HEMATOLOGY MPV 8.6 fL 7.4 - 10.4 12/24 2016 [facility] HEMATOLOGY Platelet 127 K/CMM 133 - 450 12/24 2016 [facility] HEMATOLOGY Hct 41.7 % 42.0 - 12/24 54.0 [facility] HEMATOLOGY Hgb 14.0 g/dL 14.0 - 12/24 [facility] 18.0 [facility] HEMATOLOGY RBC 4.65 M/CMM 4.70 - 12/24 [facility] 6.10 [facility] HEMATOLOGY WBC 9.3 K/CMM 3.7 - 10.4 12/24 [facility] HEMATOLOGY Monocytes 5.3 % 2.0 - 12.0 12/[address] HEMATOLOGY Eosinophils 2.8 % 0.0 - 4.0 12/24 [facility] HEMATOLOGY Basophils 0.8 % 0.0 - 1.0 12/[address] HEMATOLOGY Lymphocytes 11.1 % 20.0 - 12/24 [facility] 40.0 [facility] HEMATOLOGY Eosinophils # 0.3 K/CMM 0.0 - 0.5 12/24 2016 [facility] HEMATOLOGY Basophils # 0.1 K/CMM 0.0 - 0.2 12/[address] HEMATOLOGY Segs-Bands # 7.4 K/CMM 1.5 - 8.1 12/[address] HEMATOLOGY Lymphocytes # 1.0 K/CMM 1.0 - 5.5 12/[address] HEMATOLOGY Monocytes # 0.5 K/CMM 0.0 - 0.8 12/[address] HEMATOLOGY Segs 80.0 % 45.0 - 12/24 [facility] 75.0 [facility] Chest 1view Chest 1view EXAM: XR CHEST 1 VIEW 12/24 - [facility] DX DX - [facility] DATE: 12/24/2016 11:08 AM [employer] Read by: Willis Cardoso MD Dictated Date/time: 12/24/16 14:23 Electronically Signed by: Willis Cardoso MD 12/24/16 14:23 FINAL REPORT INDICATION: CVA COMPARISON: None TECHNIQUE: AP chest FINDINGS: There is left basilar atelectasis versus scarring. Rest of the lungs are clear. No pleural effusions or pneumothorax. Cardiomediastinal silhouette is normal limits. No acute osseous abnormality. Soft tissues are within normal limits. IMPRESSION: Left basilar atelectasis versus scarring. Angiogram Angiogram EMERGENT CEREBRAL REVASCULARIZATION 12/24 - [facility] /2016 - Medical artery artery This report was dictated by a Brand Mgr/ Fellow. I have personally reviewed the images as Center bilateral bilateral VR well as the Resident's interpretation and agree with the findings. VR Read by: Maury Griffin MD Resident: Maury Griffin MD Dictated Date/time: 12/24/16 12:36 DATE: 12/24/2016 11:31 AM [employer] Electronically Signed by: Alistair Carpio MD 12/25/16 10:07 FINAL REPORT HISTORY:81 years Male with acute onset of left-sided hemiplegia. 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 INDICATION: Acute ischemic stroke within the appropriate time frame and meeting established criteria. ATTENDING SURGEON: Alistair Carpio M.D. Attending physician was present throughout the entire procedure and interpreted the angiographic results. FELLOW SURGEON: Dr. Maury Mckeon Attending physician was present throughout the entire procedure and interpreted the angiographic results. CONSENT: The risks, benefits, and alternatives of the procedure were described to the medical proxy in detail. These risks include but are not limited to the following: vascular damage, stroke, intracr anial hemorrhage, coma, , radiation injury, contrast induced renal dysfunction and leg hematoma/vascular compromise necessitating further intervention or resulting in loss of limb. The medical proxy provided informed consent to the procedure. PROCEDURE IN DETAIL: After obtaining written informed consent, the patient was brought to the neuroangiography suite and placed on the angio table in a supine position. Time out protocol was performed to confirm the patient 's identity, the procedure site, and the indication. General anesthesia was administered by the anesthesia team with the lance crewmember/mlrs sergeant present. The patient's systolic arterial blood pressure was kept between 140- 180 mmHg. The groin was prepped and draped in the usual sterile fashion. The Left common femoral artery was accessed by using singlewall micropuncture technique and an 9 Portuguese Cor dis sheath was placed. Under fluoroscopic and roadmap guidance, A 5 Portuguese Long Vert guide catheter coaxially advanced with a 0.035 " Terumo Glidewire telescoped within an 8 Portuguese Balloon guide ca theter to select the Right Internal carotid artery. Digital angiograms in AP, lateral and oblique planes were performed. After reviewing all the angiography data, complete occlusion of the right internal carotid artery communicating segment was confirmed. Therefore proceeding with mechanical thrombectomy is indicated. Nit roglycerine was administered in order to facilitate guide catheter placement with close monitoring of systolic blood pressure. . Under roadmap guidance the guide catheter was advanced to the right inter nal carotid artery upper cervical segment the diagnostic catheter was removed. A [employer] microcatheter was coaxially advanced over a 0.014 in microwire through the guide catheter into the above mentio brittani artery. A superselective injection distal the the selected artery was performed to confirm catheter had passed the thrombus. The microwire was removed and replaced with the corresponding TREVO 6x40 Stent Retrieval device. The stent was deployed and allowed to separate the clot for approximately 5 minutes. At this point, the balloon was inflated on the guide catheter and flow reversal aspiration wa s induced by utilizing the Penumbra suction device as well as hand aspiration, simultaneously while retrieving the stent through the microcatheter. A small amount of thrombus was retrieved. Angiogram ru ns following aspiration demonstrated flow was Restored and confirmed on follow-up angiogram runs. After final review of the post-thrombectomy angiograms, the guide catheter was then withdrawn to perform a common femoral artery angiogram. The artery was deemed acceptable for application of Angio-Seal closure device. The device was employed, pressure was held, pulses were at baseline and complete hemostasis was obtained. The patient was monitored throughout the procedure by the anesthesia team and remained hemodynamically stable. No new neurological deficit was identified after the procedure, and the patient was transpo rted to the intensive care unit in stable condition. ANESTHESIA: General Anesthesia under direction of attending anesthesiologist. Pre-, intra- and post- procedure monitoring records available in chart. CONTRAST:50 mL RADIATION: AP: 1482 mGy LATERAL: 456 mGy FLUORO TIME: 17 minutes COMPLICATIONS: None immediate. TASKS: 1. Left femoral artery catheterization 2. Right internal carotid artery catheterization followed by 2-D angiogram run 3. Right middle cerebral artery superselective catheterization was marksman microcatheter 4. Right internal carotid artery mechanical thrombectomy using retrieval stent 5. Application of Angio-Seal closing device FINDINGS: Pre-treatment 1. Right internal carotid artery : Right internal carotid artery injection revealed opacification of the right internal carotid artery with complete occlusion at the communicating segment after the riaz eoff of the right posterior communicating artery . There is evidence of perfusion deficit associated with the right hemisphere and both middle cerebral artery and anterior cerebral artery territory . FINDINGS: Post-treatment 1. Right internal carotid artery : Right internal carotid artery injection revealed brisk opacification of the right internal carotid artery, right middle cerebral artery and right anterior cerebral ar bernadette . There is evidence of recanalization of the previously described occlusions achieving TICI 3 . IMPRESSION: 1. 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 Successful Recanalization of Right internal carotid TICI Grade 3 Brain Brain Stroke EXAM: CT BRAIN WITHOUT CONTRAST 12/24 [facility] Stroke wo wo /2016 - Medical contrast CT CT This report was dictated by a Brand Mgr/ Fellow. I have personally reviewed the images as Center well as the Resident's interpretation and agree with the findings. DATE: 12/24/2016 11:05 AM [employer] DEALER Read by: Dana Ortega MD Resident: Dana Ortega MD Dictated Date/time: 12/24/16 11:06 Electronically Signed by: Eugenio Mckenna MD 12/24/16 11:19 FINAL REPORT INDICATION: Acute cognitive change COMPARISON: None available TECHNIQUE: Routine axial CT images of the brain were obtained IV contrast: None. DLP: 880 mGy-cm FINDINGS: Increased attenuation is noted in the carotid terminus and right M1 segment. ASPECTS: 9 Laterality: Right Caudate: normal Internal capsule: normal Lenticular: Abnormal Insula: normal M1: normal M2: normal M3: normal M4: normal M5: normal M6: normal The the left maxillary sinus is atelectatic and there is enophthalmos of the left globe as a result. The other paranasal sinuses, contralateral orbit and mastoids are unremarkable. IMPRESSION: 1. Early acute right MCA infarct. Aspects score equals 9. No hemorrhage. 2. 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 Correlation for history of diplopia is recommended. Brain/Neck Brain/Neck EXAM: CT ANGIOGRAM OF THE BRAIN 12/24 [facility] Stroke Stroke /2017 - Medical perfusion perfusion CTA EXAM: CT ANGIOGRAM OF THE NECK Center CTA EXAM: CT PERFUSION OF THE BRAIN Read by: Eugenio Mckenna MD Dictated Date/time: 12/24/16 13:57 Electronically Signed by: Eugenio Mckenna MD 12/24/16 14:26 FINAL REPORT DATE: 12/24/2016 11:11 AM [employer]ER INDICATION: Acute cognitive change COMPARISON: Contemporaneous CT brain. TECHNIQUE: - Dynamic CT perfusion images on a limited area of the brain parenchyma are performed during bolus injection of iodinated contrast material. Color maps of relative cerebral blood flow, relative cerebral blood volume, time to peak, and mean transit time are created on an independent workstation and are submitted along with the source image data. -Rapid acquisition spiral CT images of the brain and neck were obtained between the aortic arch and the cranial vertex during intravenous infusion of iodinated contrast for the purposes of CT angiograph y. 3-D CT angiographic images are created using maximum intensity projection technique at the acquisition workstation. The source images are also presented for interpretation. IV contrast: 100 mL Visipaque 320. DOSE: Total DLP 3609 mGy*cm FINDINGS: NECK CTA: Aortic arch: The great vessels originate from the aortic arch in the standard configuration. No origin stenosis is identified. The vertebral artery origins are patent bilaterally. Carotid arteries: The cervical common carotid arteries and cervical internal carotid arteries have a normal course, caliber, and contour. Contrast density within the right internal carotid artery and, t o a lesser extent the common carotid artery is relatively diminished than the left. There are areas of calcification at the carotid bifurcations. No measurable stenosis of the carotid bifurcations or i nternal carotid arteries is present by NASCET criteria. There is no evidence of vascular injury. Vertebral arteries:The vertebral arteries are co-dominant. The vertebral arteries have a normal course, caliber and contour. A lipoma is identified on the right in the paraspinous musculature corresponding with C4, C5 and C6. The remaining soft tissues of the neck and other incidental structures are normal. BRAIN CTA: Anterior circulation: T occlusion of the right internal carotid artery is present. There is clot extending into the proximal half of the right A1 segment as well as into the medial 3 mm of the M1 segment. Caliber and contras t density of the remainder of the M1 segment is markedly diminished as it is being reperfused by collaterals. Overall contrast density to the right hemisphere is less and there are fewer peripheral branches noted in this hemisphere. No contralateral branch occlusion, vascular injury, arteritis, vascular malformation or aneurysm is identified. Posterior circulation: The most distal portion of the right vertebral artery is abnormal. There is a peripherally located filling defect along the medial aspect of the distal V4 segment approximately 4 mm proximal to the confluence. The resulting narrowing measures nearly 60% . Normal appearance and a standard branching pattern. No branch occlusion, vascular injury, arteritis, vascular malformation or aneurysm is identified. Collateral score is 2A. The deep cerebral veins and major venous sinuses are normal. CT PERFUSION: Although cerebral blood flow to the right hemisphere is markedly diminished in the territory of the right middle cerebral artery, corresponding cerebral blood volume images are almost normal. A reduction in cerebral blood flow and cerebral blood volume is seen in the posterior lateral aspect of the right putamen. A focal area of diminished cerebral blood volume is noted laterally in the right temporal lobe on image 2. There is also reduction in cerebral blood volume on the lowest image which includes the aspect of the right frontal lobe (image 3) immediately anterior to the insula. There is also a small region of diminished cerebral blood flow on the right in the M4 region with a tiny area in the a.m. 5 region . Each of the latter is less than 10 mm in extent. Conversely, the transit time and time to peak images are grossly abnormal throughout the MCA territory and its watershed regions on the right. RAPID DATA: CBF (<30%) volume: Less than 1.0 mL or none Perfusion (Tmax>6.0s) volume: 352.3 mL Mismatch Volume: 352.3 mL Mismatch Ratio: Infinite Of the affected volume, nearly half demonstrates a Tmax greater than 10 seconds (169.7). Please note, however, that the rapid data overestimates the true volume as it is including a portion of the ventricle and periventricular white matter on the left as well which is entirely normal. IMPRESSION: 1. Normal CTA of the neck apart from reduced contrast density in the right internal carotid artery resulting from distal occlusion. 2. A t-occlusion of the carotid terminus is present. Extension into the A1 and M1 segments is evident. Given the lack of cervical disease, this is felt to be a cardioembolic event. 3. Abnormal right V4 segment immediately proximal to the confluence. Again , in light of the absence of significant atherosclerotic changes elsewhere, this may represent a small intraluminal, nonocclusive, thrombus rather than merely atherosclerosis. 4.Otherwise normal CTA of the head. 5.Abnormal perfusion to the right cerebral hemisphere with essentially preserved cerebral blood volume. Large region of resulting mismatch. (All qualitative and quantitative assessments of carotid bifurcation and proximal internal carotid artery stenosis are made referencing the distal internal carotid artery {NASCET criteria}.) Vital Signs Vital Sign Value Date Comments Source Systolic (mm Hg) 123 12/26/2016 [facility] Diastolic (mm Hg) 57 12/26/2016 [facility] Respitory Rate 20 12/26/2016 [facility] Temperature Oral (F) 100.4 F 12/26/2016 [facility] Systolic (mm Hg) 116 12/26/2016 [facility] Diastolic (mm Hg) 63 12/26/2016 [facility] Respitory Rate 20 12/26/2016 [facility] Systolic (mm Hg) 127 12/26/2016 [facility] Diastolic (mm Hg) 67 12/26/2016 [facility] Respitory Rate 20 12/26/2016 [facility] Temperature Oral (F) 99.5 F 12/26/2016 [facility] Temperature Oral (F) 99.9 F 12/26/2016 [facility] Heart Rate 55 12/25/2016 [facility] Weight 100 12/24/2016 [facility] Height 190.5 cm 12/24/2016 [facility] BMI Calculated 27.56 12/24/2016 [facility] Heart Rate 75 12/24/2016 [facility] Height 182.88 cm 12/24/2016 [facility] BMI Calculated 29.9 12/24/2016 [facility] Weight 100 12/24/2016 [facility] Heart Rate 78 12/24/2016 [facility] Encounters Location Location Encounter Encounter Reason Attending ADM DC Status Source Details Type Number For Provider Date Date Visit [facility] [id number] [place] 12/24 12/26 [facility] Jair Rico [facility] Procedures Procedure Code Date Perfomer Comments Source Selective catheter 38995 12/24/2016 [facility] placement, common Medical carotid or innominate Center artery, unilateral, any approach, with angiography of the ipsilateral extracranial carotid circulation and all associated radiological supervision and interpretation, includes angiography of the c Selective catheter 44430 12/24/2016 [facility] placement, internal Medical carotid artery, Center unilateral, with angiography of the ipsilateral intracranial carotid circulation and all associated radiological supervision and interpretation, includes angiography of the extracranial carotid and ce Primary percutaneous 98010 12/24/2016 [facility] thrombectomy, noncoronary, non-intracranial, arterial or arterial bypass graft, including fluoroscopic guidance and intraprocedural pharmacological thrombolytic injection(s); initial vessel Inguinal herniotomy [id number] [facility] Manipulation of the [id number] [facility]
--- OUTSIDE RECORDS SUMMARY | 2019-01-26 16:49 | XMS REPORT | Summary of Care ---
:1935 Author Organization [facility] Address [address] [place] [id number] Encounter HQ Lex[employer]_fadi(FIN) [id number] Date(s): 12/24/16 - 12/26/[address] Professional Services provided by [facility] [place] [address]- Discharge Disposition: Home or Self Care Attending Physician: Yue Zepeda MD Admitting Physician: Yue Zepeda MD Vital Signs Most recent to oldest 1 2 3 [Reference Range]: Height 190.5 cm 182.88 cm (12/24/16 3:07 PM) (12/24/16 11:06 AM) Temperature Oral [96.4-99.1 100.4 DegF 99.5 DegF 99.9 DegF DegF] *HI* *HI* *HI* (12/26/16 11:06 AM) (12/26/16 7:19 AM) (12/26/16 3:13 AM) Blood Pressure [90-140/60-90 123/57 mmHg 116/63 mmHg 127/67 mmHg mmHg] (12/26/16 12:00 PM) (12/26/16 11:00 AM) (12/26/16 10:00 AM) Respiratory Rate [14-20 20 BRMIN 20 BRMIN 20 BRMIN BRMIN] (12/26/16 12:00 PM) (12/26/16 11:00 AM) (12/26/16 10:00 AM) Peripheral Pulse Rate 55 bpm 75 bpm 78 bpm [60-100 bpm] *LOW* (12/24/16 11:10 AM) (12/24/16 11:06 AM) (12/24/16 8:20 PM) Weight 100 kg 100 kg (12/24/16 3:07 PM) (12/24/16 11:06 AM) Body Mass Index 27.56 m2 29.9 m2 (12/24/16 3:07 PM) (12/24/16 11:06 AM) Problem List Condition Effective Dates Status Health Status Informant Hyperlipidemia(Confirmed) Resolved HTN (hypertension)(Confirmed) Resolved Allergies, Adverse Reactions, Alerts Substance Reaction Severity Status NKDA Active Medications ANES flumazenil 0.2 mg, Route: IVP, PRN, Dosing Weight 100, kg, PRN Benzodiazepine Reversal, Initial dose, Start date: 12/24/16 12:56:00 MULTIMEDIA ARTIST, Duration: 30 day, Stop date: 12:55:00 MULTIMEDIA ARTIST Start Date: 12/24/16 Stop Date: 12/24/16 Status: DiscontinuedANES hydrALAZINE 10 mg, Route: IVP, Q20Min, Dosing Weight 100, kg, PRN Elevated BP, Start date: 12/24/16 12:56:00 MULTIMEDIA ARTIST, Duration: 2 doses or times, Stop date: Limited # of times Start Date: 12/24/16 Stop Date: 12/24/16 Status: DiscontinuedANES HYDROmorphone 0.5 mg, Route: IVP, Q5Min, Dosing Weight 100, kg, PRN Pain Score 7-10, Start date: 12/24/16 12:56:00CST, Duration: 4 doses or times, Stop date: Limited # of times Start Date: 12/24/16 Stop Date: 12/24/16 Status: DiscontinuedANES labetalol 10 mg, Route: IVP, Q5Min, Dosing Weight 100, kg, PRN Elevated BP, Start date: 12:56:00 MULTIMEDIA ARTIST,Duration: 5 doses or times, Stop date: Limited # of times Start Date: 12/24/16 Stop Date: 12/24/16 Status: DiscontinuedANES naloxone 0.4 mg, Route: IVP, Q2MIN, Dosing Weight 100, kg, PRN Narcotic Reversal, Start date: 12/24/16 12:56:00 MULTIMEDIA ARTIST, Duration: 8 doses or times, Stop date: Limited # of times Start Date: 12/24/16 Stop Date: 12/24/16 Status: DiscontinuedANES ondansetron 4 mg, Route: IVP, ONCE, Dosing Weight 100, kg, PRN Nausea & Vomiting, Start date: 12/24/16 12:56:00 MULTIMEDIA ARTIST Start Date: 12/24/16 Stop Date: 12/24/16 Status: Discontinuedaspirin 325 mg tablet, enteric coated 325 mg, 1 tab, Route: PO, Drug form: ECTAB, Daily, Dosing Weight 100, kg, Start date: 12/25/16 9:00:00 MULTIMEDIA ARTIST, Duration: 30 day, Stop date: 01/23/17 9:00:00 MULTIMEDIA ARTIST Notes: (Do Not Crush) Do not crush or chew. Start Date: 12/25/16 Stop Date: 12/26/16 Status: Discontinuedatorvastatin 40 mg, 1 tab, Route: PO, Drug form: TAB, Bedtime, Dosing Weight 100, kg, Start date: 12/24/16 21:00:00 MULTIMEDIA ARTIST, Stop date: 01/22/17 21:00:00 MULTIMEDIA ARTIST Notes: (Same as: Lipitor) Start Date: 12/24/16 Stop Date: 12/26/16 Status: Discontinuedatorvastatin 40 mg oral tablet 40 mg=1 tab, PO, Bedtime, # 30 tab, 3 Refill(s) Start Date: 12/26/16 Status: Orderedcalcium carbonate 500 mg (200 mg elemental calcium) oral tablet 500 mg, 1 tab, Route: PO, Drug form: CHEWTAB, PRN, Dosing Weight 100, kg, PRN Abnormal Lab Result, FOR ICU USE ONLY, Start date: 12/24/16 15:18:00 MULTIMEDIA ARTIST, Duration: 30 day, Stop date: 01/23/17 15:17:00 MULTIMEDIA ARTIST Notes: (Same As: Tums)Calcium Carbonate 500 iq=023 mg elemental calcium Dose=_ mg calcium carbonate ( mg elemental calcium) Start Date: 12/24/16 Stop Date: 12/25/16 Status: Discontinuedcalcium carbonate 500 mg (200 mg elemental calcium) oral tablet 1,000 mg, 2 tab, Route: PO, Drug form: CHEWTAB, PRN, Dosing Weight 100, kg, PRN Abnormal Lab Result,FOR ICU USE ONLY, Start date: 12/24/16 15:18:00 MULTIMEDIA ARTIST, Duration: 30 day, Stop date: 01/23/17 15:17:00 MULTIMEDIA ARTIST Notes: (Same As: Jaron)Calcium Carbonate 500 kl=437 mg elemental calcium Dose=_ mg calcium carbonate ( mg elemental calcium) Start Date: 12/24/16 Stop Date: 12/25/16 Status: Discontinuedcalcium gluconate + sodium chloride 0.9% INJ 50 mL 1 gm, 10 mL, Route: IVPB, PRN, Dosing Weight 100, kg, PRN Abnormal Lab Result, Start date: 12/24/16 15:18:00 MULTIMEDIA ARTIST, Duration: 30 day, Stop date: 01/23/17 15:17: 00 MULTIMEDIA ARTIST, FOR ICU USE ONLY Notes: WASTE: F/P - Sink; E - Municipal Trash Bin Start Date: 12/24/16 Stop Date: 12/25/16 Status: Discontinuedciprofloxacin 250 mg oral tablet 250 mg=1 tab, PO, Q12H, X 3 day, # 6 tab, 0 Refill(s) Start Date: 12/26/16 Stop Date: 12/29/16 Status: Orderedciprofloxacin 250 mg oral tablet 250 mg=1 tab, PO, Q12H, X 10 day, # 20 tab, 0 Refill(s) Start Date: 12/26/16 Stop Date: 12/26/16 Status: DiscontinuedDextrose 50% Syringe 25 gm, 50 mL, Route: IVP, Drug Form: INJ, Dosing Weight 100, kg, PRN, PRN Blood Glucose Results, Start date: 12/24/16 15:18:00 MULTIMEDIA ARTIST, Duration: 30 day, Stop date : 01/23/17 15:17:00 MULTIMEDIA ARTIST Start Date: 12/24/16 Stop Date: 12/26/16 Status: DiscontinuedDextrose 50% Syringe 12.5 gm, 25 mL, Route: IVP, Drug Form: INJ, Dosing Weight 100, kg, PRN, PRN Blood Glucose Results, Start date: 12/24/16 15:18:00 MULTIMEDIA ARTIST, Duration: 30 day, Stop date: 01/23/17 15:17:00 MULTIMEDIA ARTIST Start Date: 12/24/16 Stop Date: 12/26/16 Status: Discontinueddocusate 100 mg, 1 cap, Route: PO, Drug form: CAP, Q12H, Dosing Weight 100, kg, Start date: 12/24/16 21:00:00CST, Duration: 30 day, Stop date: 01/23/17 9:00:00 MULTIMEDIA ARTIST Notes: (Same as: Colace) (Do Not Crush) Start Date: 12/24/16 Stop Date: 12/26/16 Status: DiscontinuedEliquis 5 mg, 1 tab, Route: PO, Drug form: TAB, Q12H, Dosing Weight 100, kg, Priority: NOW, Start date: 12/26/16 9:17:00 MULTIMEDIA ARTIST, Duration: 30 day, Stop date: 01/25/17 9: 00:00 MULTIMEDIA ARTIST Notes: Same as: Eliquis Start Date: 12/26/16 Stop Date: 12/26/16 Status: DiscontinuedEliquis 5 mg oral tablet 5 mg=1 tab, PO, BID, # 60 tab, 3 Refill(s) Start Date: 12/26/16 Status: Orderedgabapentin 400 mg oral capsule 400 mg, 1 cap, Route: PO, Drug form: CAP, TID, Dosing Weight 100, kg, Start date : 12/25/16 9:00:00 MULTIMEDIA ARTIST, Duration: 30 day, Stop date: 01/23/17 17:00:00 MULTIMEDIA ARTIST Notes: (Same as: Neurontin) Start Date: 12/25/16 Stop Date: 12/26/16 Status: Discontinuedgabapentin 400 mg oral capsule 400 mg=1 cap, PO, TID, # 90 cap, 1 Refill(s) Start Date: 12/24/16 Status: Orderedgabapentin 400 mg oral capsule 400 mg, 1 cap, Route: PO, Drug form: CAP, ONCE, Dosing Weight 100, kg, Start date: 12/24/16 23:47:00CST, Stop date: 12/24/16 23:47:00 MULTIMEDIA ARTIST Notes: (Same as: Neurontin) Start Date: 12/24/16 Stop Date: 12/25/16 Status: Completedglucagon 1 mg, Route: IM, Drug form: PDR/INJ, PRN, Dosing Weight 100, kg, PRN Blood Glucose Results, Start date: 12/24/16 15:18:00 MULTIMEDIA ARTIST, Duration: 30 day, Stop date : 01/23/17 15:17:00 MULTIMEDIA ARTIST Start Date: 12/24/16 Stop Date: 12/26/16 Status: Discontinuedheparin 5000 units/mL injectable solution 5,000 unit, 1 mL, Route: SUB-Q, Drug form: INJ, Q8H, Dosing Weight 100, kg, Start date: 12/24/16 16:00:00 MULTIMEDIA ARTIST, Duration: 30 day, Stop date: 01/23/17 8:00: 00 MULTIMEDIA ARTIST Notes: porcine heparin Start Date: 12/24/16 Stop Date: 12/26/16 Status: Discontinuedhydrochlorothiazide-losartan 12.5 mg-100 mg oral tablet 1 tab, PO, Daily, 0 Refill(s) Start Date: 12/26/16 Stop Date: 12/26/16 Status: Discontinuedmagnesium oxide 800 mg, 2 tab, Route: PO, Drug form: TAB, PRN, Dosing Weight 100, kg, PRN Abnormal Lab Result, FOR ICU USE ONLY, Start date: 12/24/16 15:18:00 MULTIMEDIA ARTIST, Duration: 30 day, Stop date: 01/23/17 15:17:00 MULTIMEDIA ARTIST Notes: (Same as: Mag-Ox 400)Magnesium oxide [id number] elemental magnesiumDose= ____mg magnesium oxide (___mg elemental magnesium) Start Date: 12/24/16 Stop Date: 12/25/16 Status: Discontinuedmagnesium sulfate 2 gm, 50 mL, Route: IVPB, Drug form: INJ, PRN, Dosing Weight 100, kg, PRN Abnormal Lab Result, Startdate: 12/24/16 15:18:00 MULTIMEDIA ARTIST, Duration: 30 day, Stop date: 01/23/17 15:17:00 MULTIMEDIA ARTIST, FOR ICU USE ONLY Notes: WASTE: F/P - Sink; E - Municipal Trash Bin Start Date: 12/24/16 Stop Date: 12/25/16 Status: DiscontinuedOccupational Therapy See Instructions, MISC, ONCALL, Evaluate and Treat DX: R MCA ischemic stroke, # 1 appl, 0 Refill(s) Start Date: 12/26/16 Status: OrderedOmnipaque 300 150 ml, Route: INTRAARTERIAL, Dosing Weight 100, kg, ONCE, Start date: 12/24/16 11:54:00 MULTIMEDIA ARTIST, Stop date: 12/24/16 11:54:00 MULTIMEDIA ARTIST Start Date: 12/24/16 Stop Date: 12/24/16 Status: CompletedPhysical Therapy See Instructions, MISC, ONCALL, outpatient physical therapy Dx: right MCA stroke, # 1 appl, 0 Refill(s) Start Date: 12/26/16 Status: Orderedpneumococcal 13-valent vaccine 0.5 mL, Route: IM, Drug Form: INJ, Daily, Start date: 12/25/16 9:00:00 MULTIMEDIA ARTIST, Duration: 1 doses or times, Stop date: 12/25/16 9:00:00 MULTIMEDIA ARTIST Notes: (Same as: Cynthia Bustos) Start Date: 12/25/16 Stop Date: 12/25/16 Status: Deletedpneumococcal 13-valent vaccine 0.5 mL, Route: IM, Drug Form: INJ, Daily, Start date: 12/25/16 18:00:00 MULTIMEDIA ARTIST, Duration: 1 doses or times, Stop date: 12/25/16 18:00:00 MULTIMEDIA ARTIST Notes: (Same as: Cynthia Bustos) Start Date: 12/25/16 Stop Date: 12/25/16 Status: Completedpneumococcal 13-valent vaccine 0.5 mL, Route: IM, Drug Form: INJ, Daily, Start date: 12/24/16 18:00:00 MULTIMEDIA ARTIST, Duration: 1 doses or times, Stop date: 12/24/16 18:00:00 MULTIMEDIA ARTIST Notes: (Same as: Cynthia Bustos) Start Date: 12/24/16 Stop Date: 12/25/16 Status: Deletedpotassium chloride 10 mEq, 50 mL, Route: IVPB, Drug form: INJ, PRN, Dosing Weight 100, kg, PRN Abnormal Lab Result, Viaperipheral line, Start date: 12/24/16 15:18:00 MULTIMEDIA ARTIST, Duration: 30 day, Stop date: 01/23/17 15:17:00 MULTIMEDIA ARTIST, FOR ICU USE ONLY Notes: (Same as: KCL) Infuse over 2 hours. Start Date: 12/24/16 Stop Date: 12/25/16 Status: Discontinuedpotassium chloride 20 mEq, 1 tab, Route: PO, Drug form: ERTAB, PRN, Dosing Weight 100, kg, PRN Abnormal Lab Result, Start date: 12/24/16 15:18:00 MULTIMEDIA ARTIST, Duration: 30 day, Stop date: 01/23/17 15:17:00 MULTIMEDIA ARTIST, FOR ICU USE ONLY Notes: (Same as: K-Dur 20)"Do Not Crush" With food and full glass of water Start Date: 12/24/16 Stop Date: 12/25/16 Status: Discontinuedpotassium chloride 20 mEq, 15 mL, Route: NJ, Drug form: LIQ, PRN, Dosing Weight 100, kg, PRN Abnormal Lab Result, Startdate: 12/24/16 15:18:00 MULTIMEDIA ARTIST, Duration: 30 day, Stop date: 01/23/17 15:17:00 MULTIMEDIA ARTIST, FOR ICU USE ONLY Notes: (Same as: Potassium Chloride) Start Date: 12/24/16 Stop Date: 12/25/16 Status: Discontinuedpotassium chloride 20 mEq, 100 mL, Route: IVPB, Drug form: INJ, PRN, Dosing Weight 100, kg, PRN Abnormal Lab Result, Via central line, Start date: 12/24/16 15:18:00 MULTIMEDIA ARTIST, Duration: 30 day, Stop date: 01/23/17 15:17:00 MULTIMEDIA ARTIST, FOR ICU USE ONLY Notes: (Same as: KCL) Infuse no faster than 10 mEq/hr if given peripherally. Start Date: 12/24/16 Stop Date: 12/25/16 Status: Discontinuedpotassium phosphate + sodium chloride 0.9% INJ 250 mL 30 mmol, 10 mL, Route: IVPB, PRN, Dosing Weight 100, kg, PRN Abnormal Lab Result , Start date: 12/24/16 15:18:00 MULTIMEDIA ARTIST, Duration: 30 day, Stop date: 01/23/17 15:17 :00 MULTIMEDIA ARTIST, FOR ICU USE ONLY Notes: (Same as: K Phosphate.) 1 mMol phoshate has 1.47 mEq potassium Infuse over 4 hours Start Date: 12/24/16 Stop Date: 12/25/16 Status: Discontinuedpotassium phosphate + sodium chloride 0.9% INJ 250 mL 45 mmol, 15 mL, Route: IVPB, PRN, Dosing Weight 100, kg, PRN Abnormal Lab Result , Start date: 12/24/16 15:18:00 MULTIMEDIA ARTIST, Duration: 30 day, Stop date: 01/23/17 15:17 :00 MULTIMEDIA ARTIST, FOR ICU USE ONLY Notes: (Same as: K Phosphate.) 1 mMol phoshate has 1.47 mEq potassium Infuse over 4 hours Start Date: 12/24/16 Stop Date: 12/25/16 Status: Discontinuedpotassium phosphate + sodium chloride 0.9% INJ 250 mL 15 mmol, 5 mL, Route: IVPB, PRN, Dosing Weight 100, kg, PRN Abnormal Lab Result , Start date: 12/24/16 15:18:00 MULTIMEDIA ARTIST, Duration: 30 day, Stop date: 01/23/17 15:17 :00 MULTIMEDIA ARTIST, FOR ICU USE ONLY Notes: (Same as: K Phosphate.) 1 mMol phoshate has 1.47 mEq potassium Infuse over 4 hours Start Date: 12/24/16 Stop Date: 12/25/16 Status: Discontinuedpotassium phosphate-sodium phosphate 250 mg-280 mg-160 mg oral powder for reconstitution 2 pkt, Route: PO, Drug Form: PDR/REC, Dosing Weight 100, kg, PRN, PRN Abnormal Lab Result, FOR ICU USE ONLY, Start date: 12/24/16 15:18:00 MULTIMEDIA ARTIST, Duration: 30 day, Stop date: 01/23/17 15:17:00 MULTIMEDIA ARTIST Notes: (Same as: Phos-NaK) Each 1.5 gm pkt has 250mg phosphorous. Mix w/2.5oz water and stir. Start Date: 12/24/16 Stop Date: 12/25/16 Status: DiscontinuedRocephin 1 gm, Route: IVPB, Drug form: PDR/INJ, [id number], Dosing Weight 100, kg, Start date: 12/26/16 7:00:00 MULTIMEDIA ARTIST, Stop date: 12/28/16 8:00:00 MULTIMEDIA ARTIST Notes: (Same As: Rocephin).Use with 100 mL NS and infuse over 30 min MEDICATION WASTE Product Size: 1000 mgProduct Wasted: ___ mg Start Date: 12/26/16 Stop Date: 12/26/16 Status: DiscontinuedSaline Flush 0.9% 10 ml, Route: IVP, Drug Form: INJ, Dosing Weight 100, kg, PRN, PRN Line Flush, Start date: 12/24/16 12:28:00 MULTIMEDIA ARTIST, Duration: 30 day, Stop date: 01/23/17 12:27: 00 MULTIMEDIA ARTIST Notes: (Same as: BD Posiflush) Start Date: 12/24/16 Stop Date: 12/26/16 Status: DiscontinuedSaline Flush 0.9% 10 ml, Route: IVP, Drug Form: INJ, Dosing Weight 100, kg, Q12H, Start date: 21:00:00 MULTIMEDIA ARTIST, Duration: 30 day, Stop date: 01/23/17 9:00:00 MULTIMEDIA ARTIST Notes: (Same as: BD Posiflush) Start Date: 12/24/16 Stop Date: 12/26/16 Status: DiscontinuedSaline Flush 0.9% 10 mL, Route: IVP, Drug Form: INJ, kg, PRN, PRN Line Flush, Start date: 11:08:00 MULTIMEDIA ARTIST, Duration: 30 day, Stop date: 01/23/17 11:07:00 MULTIMEDIA ARTIST Notes: (Same as: BD Posiflush) Start Date: 12/24/16 Stop Date: 12/26/16 Status: Discontinuedsenna 8.6 mg, 1 tab, Route: PO, Drug Form: TAB, Dosing Weight 100, kg, BID, Start date : 12/24/16 17:00:00 MULTIMEDIA ARTIST, Duration: 30 day, Stop date: 01/23/17 9:00:00 MULTIMEDIA ARTIST Notes: (Same as: Senokot) Start Date: 12/24/16 Stop Date: 12/26/16 Status: Discontinuedsodium chloride 0.9% 1000 ml INJ 1,000 mL 1,000 mL, Rate: 75 ml/hr, Infuse over: 13.3 hr, Route: IV, Dosing Weight 100 kg , Total Volume: 1,000, Start date: 12/24/16 14:56:00 MULTIMEDIA ARTIST, Duration: 30 day, Stop date: 01/23/17 14:55:00 MULTIMEDIA ARTIST Start Date: 12/24/16 Stop Date: 12/25/16 Status: Discontinuedsodium chloride 0.9% 1000 ml INJ 1,000 mL 1,000 mL, Rate: 75 ml/hr, Infuse over: 13.3 hr, Route: IV, Dosing Weight 100 kg , Total Volume: 1,000, Start date: 12/24/16 12:28:00 MULTIMEDIA ARTIST, Duration: 30 day, Stop date: 01/23/17 12:27:00 MULTIMEDIA ARTIST Start Date: 12/24/16 Stop Date: 12/25/16 Status: Discontinuedsodium phosphate + sodium chloride 0.9% INJ 250 mL 30 mmol, 10 mL, Route: IVPB, PRN, Dosing Weight 100, kg, PRN Abnormal Lab Result , Start date: 12/24/16 15:18:00 MULTIMEDIA ARTIST, Duration: 30 day, Stop date: 01/23/17 15:17 :00 MULTIMEDIA ARTIST, FOR ICU USE ONLY Start Date: 12/24/16 Stop Date: 12/25/16 Status: Discontinuedsodium phosphate + sodium chloride 0.9% INJ 250 mL 15 mmol, 5 mL, Route: IVPB, PRN, Dosing Weight 100, kg, PRN Abnormal Lab Result , Start date: 12/24/16 15:18:00 MULTIMEDIA ARTIST, Duration: 30 day, Stop date: 01/23/17 15:17 :00 MULTIMEDIA ARTIST, FOR ICU USE ONLY Start Date: 12/24/16 Stop Date: 12/25/16 Status: Discontinuedsodium phosphate + sodium chloride 0.9% INJ 250 mL 45 mmol, 15 mL, Route: IVPB, PRN, Dosing Weight 100, kg, PRN Abnormal Lab Result , Start date: 12/24/16 15:18:00 MULTIMEDIA ARTIST, Duration: 30 day, Stop date: 01/23/17 15:17 :00 MULTIMEDIA ARTIST, FOR ICU USE ONLY Start Date: 12/24/16 Stop Date: 12/25/16 Status: Discontinuedsotalol 40 mg, 0.5 tab, Route: PO, Drug form: TAB, Bedtime, Start date: 12/25/16 21:00: 00 MULTIMEDIA ARTIST, Duration: 30 day, Stop date: 01/23/17 21:00:00 MULTIMEDIA ARTIST Notes: (Same As: Betapace)40 mg=1/2 x 80 mg TAB Start Date: 12/25/16 Stop Date: 12/26/16 Status: Discontinuedsotalol 80 mg oral tablet 80 mg=1 tab, PO, Daily, 0 Refill(s) Start Date: 12/24/16 Stop Date: 12/26/16 Status: Discontinuedsotalol 80 mg oral tablet 40 mg=0.5 tab, PO, Bedtime, # 30 tab, 3 Refill(s) Start Date: 12/26/16 Status: Orderedsotalol AF 80 mg oral tablet 40 mg, Route: PO, Q12H, Dosing Weight 100, kg, Start date: 12/25/16 21:00:00 MULTIMEDIA ARTIST , Duration: 30 day, Stop date: 01/24/17 9:00:00 MULTIMEDIA ARTIST Start Date: 12/25/16 Stop Date: 12/25/16 Status: Canceledtramadol 50 mg oral tablet 50 mg=1 tab, PO, BID, # 30 tab, 0 Refill(s) Start Date: 12/24/16 Stop Date: 01/08/17 Status: OrderedVisipaque 320mg/ml 100 mL, Route: IVP, Drug Form: SOLN, Dosing Weight 100, kg, ONCALL, STAT, Start date: 12/24/16 11:29:00 MULTIMEDIA ARTIST, Duration: 1 doses or times, Dose=2.2ml/kg, Max [id number] -- "To be infused by Radiology Staff ONLY" Start Date: 12/24/16 Stop Date: 12/24/16 Status: Completed Results BLOOD BANK RESULTS Most recent to oldest [Reference Range]: 1 2 3 ABO/Rh A POS *Unknown* (12/24/16 11:20 AM) Antibody Scrn Negative (12/24/16 11:20 AM) ELECTROLYTES Most recent to oldest 1 2 3 [Reference Range]: Sodium Lvl [135-145 mEq/L] 142 mEq/L 142 mEq/L 138 mEq/L (12/26/16 12:42 AM) (12/25/16 1:53 PM) (12/25/16 12:16 AM) Potassium Lvl [3.5-5.1 3.7 mEq/L 4.0 mEq/L 3.4 mEq/L mEq/L] (12/26/16 12:42 AM) (12/25/16 1:53 PM) *LOW* (12/25/16 12:16 AM) Chloride Lvl [95-109 mEq/L] 108 mEq/L 109 mEq/L 107 mEq/L (12/26/16 12:42 AM) (12/25/16 1:53 PM) (12/25/16 12:16 AM) CO2 [24-32 mEq/L] 27 mEq/L 24 mEq/L 24 mEq/L (12/26/16 12:42 AM) (12/25/16 1:53 PM) (12/25/16 12:16 AM) AGAP [10.0-20.0 mEq/L] 10.7 mEq/L 13.0 mEq/L 10.4 mEq/L (12/26/16 12:42 AM) (12/25/16 1:53 PM) (12/25/16 12:16 AM) CHEM PANEL Most recent to oldest 1 2 3 [Reference Range]: Creatinine Lvl [0.50-1.40 1.17 mg/dL 1.05 mg/dL 1.11 mg/dL mg/dL] (12/26/16 12:42 AM) (12/25/16 1:53 PM) (12/25/16 12:16 AM) eGFR 58 mL/min/1.73m2 1 66 mL/min/1.73m2 2 62 mL/min/1.73m2 3 *NA* *NA* *NA* (12/26/16 12:42 AM) (12/25/16 1:53 PM) (12/25/16 12:16 AM) BUN [7-22 mg/dL] 17 mg/dL 14 mg/dL 22 mg/dL (12/26/16 12:42 AM) (12/25/16 1:53 PM) (12/25/16 12:16 AM) B/C Ratio [6-25] 20 (12/25/16 12:16 AM) Glucose Lvl [70-99 mg/dL] 95 mg/dL 107 mg/dL 117 mg/dL (12/26/16 12:42 AM) *HI* *HI* (12/25/16 1:53 PM) (12/25/16 12:16 AM) POC Creatinine [0.5-1.4 1.1 mg/dL mg/dL] (12/24/16 11:05 AM) Total Protein [6.4-8.4 5.9 g/dL 6.2 g/dL g/dL] *LOW* *LOW* (12/25/16 12:16 AM) (12/24/16 12:57 PM) Albumin Lvl [3.5-5.0 g/dL] 2.9 g/dL 3.1 g/dL *LOW* *LOW* (12/25/16 12:16 AM) (12/24/16 12:57 PM) Globulin [2.7-4.2 g/dL] 3.0 g/dL 3.1 g/dL (1/26/17 12:16 AM) (12/24/16 12:57 PM) A/G Ratio [0.7-1.6] 1.0 1.0 (12/25/16 12:16 AM) (12/24/16 12:57 PM) Calcium Lvl [8.5-10.5 8.4 mg/dL 8.6 mg/dL 7.9 mg/dL mg/dL] *LOW* (12/25/16 1:53 PM) *LOW* (12/26/16 12:42 AM) (12/25/16 12:16 AM) Phosphorus [2.5-4.5 mg/dL] 2.5 mg/dL 2.4 mg/dL 2.1 mg/dL (12/26/16 12:42 AM) *LOW* *LOW* (12/25/16 1:53 PM) (12/25/16 12:16 AM) Magnesium Lvl [1.8-2.4 2.2 mg/dL 2.2 mg/dL mg/dL] (12/26/16 12:42 AM) (12/25/16 12:16 AM) ALT [0-65 unit/L] 15 unit/L 12 unit/L (12/25/16 12:16 AM) (12/24/16 12:57 PM) AST [0-37 unit/L] 12 unit/L 13 unit/L (12/25/16 12:16 AM) (12/24/16 12:57 PM) Alk Phos [39-136 unit/L] 51 unit/L 51 unit/L (12/25/16 12:16 AM) (12/24/16 12:57 PM) Bili Total [0.2-1.3 mg/dL] 0.8 mg/dL 1.0 mg/dL (12/25/16 12:16 AM) (12/24/16 12:57 PM) Bili Direct [0.0-0.3 mg/dL] 0.2 mg/dL (12/24/16 12:57 PM) Bili Indirect [0.0-1.0 0.8 mg/dL mg/dL] (12/24/16 12:57 PM) 1Result Comment: The eGFR is calculated using the CKD-EPI formula. In most young , healthy individualsthe eGFR will be >90 mL/min/1.73m2. The eGFR declines with age. An eGFR of 60-89 may be normal in some populations, particularly the elderly, for whom the CKD-EPI formula has not been extensively validated. Use of the eGFR is not recommended in the following populations: Individuals with unstable creatinine concentrations, including patients and those with serious co-morbid conditions. Patients with extremes in muscle mass or diet. The data above are obtained from the National Kidney Disease Education Program ( NKDEP) which additionally recommends that when the eGFR is used in patients with extremes of body mass index for purposesof drug dosing, the eGFR should be multiplied by the estimated BMI.2Result Comment: The eGFR is calculated using the CKD-EPI formula. In most young, healthy individualsthe eGFR will be >90 mL/ min/1.73m2. The eGFR declines with age. An eGFR of 60-89 may be normal in some populations, particularly the elderly, for whom the CKD-EPI formula has not been extensively validated. Use of the eGFR is not recommended in the following populations: Individuals with unstable creatinine concentrations, including patients and those with serious co-morbid conditions. Patients with extremes in muscle mass or diet. The data above are obtained from the National Kidney Disease Education Program ( NKDEP) which additionally recommends that when the eGFR is used in patients with extremes of body mass index for purposesof drug dosing, the eGFR should be multiplied by the estimated BMI.3Result Comment: The eGFR is calculated using the CKD-EPI formula. In most young, healthy individualsthe eGFR will be >90 mL/ min/1.73m2. The eGFR declines with age. An eGFR of 60-89 may be normal in some populations, particularly the elderly, for whom the CKD-EPI formula has not been extensively validated. Use of the eGFR is not recommended in the following populations: Individuals with unstable creatinine concentrations, including patients and those with serious co-morbid conditions. Patients with extremes in muscle mass or diet. The data above are obtained from the [employer] ( [employer]) which additionally recommends that when the eGFR is used in patients with extremes of body mass index for purposesof drug dosing, the eGFR should be multiplied by the estimated BMI.CARDIAC ENZYMES Most recent to oldest [Reference Range]: 1 2 3 Total CK [12-191 unit/L] 36 unit/L (1/25/17 11:01 AM) CK MB [0.5-3.6 ng/mL] <0.5 ng/mL (12/24/16 11:01 AM) CK MB Index [0.0-2.5] <1.4 (12/24/16 11:01 AM) Troponin-I [0.00-0.40 ng/mL] <0.02 ng/mL (12/24/16 11:01 AM) LIPIDS Most recent to oldest [Reference Range]: 1 2 3 CHD Risk [4.00-7.30] 2.65 *LOW* (12/24/16 12:57 PM) Chol [<=199 mg/dL] 138 mg/dL (12/24/16 12:57 PM) Trig [<=149 mg/dL] 59 mg/dL (12/24/16 12:57 PM) HDL [>=61 mg/dL] 52 mg/dL *LOW* (12/24/16 12:57 PM) LDL (Calculated) [<=99 mg/dL] 74 mg/dL (12/24/16 12:57 PM) VLDL 12 *NA* (12/24/16 12:57 PM) SPECIAL CHEMISTRY Most recent to oldest [Reference Range]: 1 2 3 Hgb A1C [<=5.6 %] 5.1 % (12/24/16 12:57 PM) PARATHYROID PROFILE Most recent to oldest [Reference Range]: 1 2 3 Ca Ion WB [1.05-1.25 mMol/L] 1.19 mMol/L 1.16 mMol/L (12/26/16 12:42 AM) (12/25/16 12:16 AM) Ca Norm WB [1.05-1.25 mMol/L] 1.15 mMol/L 1.17 mMol/L (12/26/16 12:42 AM) (12/25/16 12:16 AM) URINE AND STOOL Most recent to oldest [Reference Range]: 1 2 3 UA Turbidity [Clear] Clear (12/25/16 6:01 PM) UA Color [Yellow] Yellow *NA* (12/25/16 6:01 PM) UA pH [5.0-8.0] 6.0 (12/25/16 6:01 PM) UA Spec Grav [<=1.030] 1.012 (12/25/16 6:01 PM) UA Glucose [Negative mg/dL] Negative mg/dL *NA* (12/25/16 6:01 PM) UA Blood [Negative] Negative (12/25/16 6:01 PM) UA Ketones [Negative mg/dL] Negative mg/dL *NA* (12/25/16 6:01 PM) UA Protein [Negative mg/dL] Negative mg/dL (12/25/16 6:01 PM) UA Urobilinogen [0.1-1.0 mg/dL] <=1.0 mg/dL *NA* (12/25/16 6:01 PM) UA Bili [Negative] Negative *NA* (12/25/16 6:01 PM) UA Leuk Est [Negative] Large *ABN* (12/25/16 6:01 PM) UA Nitrite [Negative] Negative (12/25/16 6:01 PM) UA WBC [0-5 /HPF] 9 /HPF *HI* (12/25/16 6:01 PM) UA RBC [0-2 /HPF] 1 /HPF (12/25/16 6:01 PM) UA Bacteria [None Seen /HPF] Occasional /HPF *NA* (12/25/16 6:01 PM) UA Sq Epi None Seen *NA* (12/25/16 6:01 PM) UA Mucus [None Seen /LPF] Few /LPF *NA* (12/25/16 6:01 PM) HEMATOLOGY Most recent to oldest 1 2 3 [Reference Range]: WBC [3.7-10.4 K/CMM] 8.9 K/CMM 10.3 K/CMM 9.3 K/CMM (12/26/16 12:42 AM) (12/25/16 12:16 AM) (12/24/16 11:01 AM) RBC [4.70-6.10 M/CMM] 4.84 M/CMM 4.74 M/CMM 4.65 M/CMM (12/26/16 12:42 AM) (12/25/16 12:16 AM) *LOW* (12/24/16 11:01 AM) Hgb [14.0-18.0 g/dL] 14.5 g/dL 14.6 g/dL 14.0 g/dL (12/26/16 12:42 AM) (12/25/16 12:16 AM) (12/24/16 11:01 AM) Hct [42.0-54.0 %] 43.3 % 41.8 % 41.7 % (12/26/16 12:42 AM) *LOW* *LOW* (12/25/16 12:16 AM) (12/24/16 11:01 AM) MCV [80.0-94.0 fL] 89.4 fL 88.3 fL 89.5 fL (12/26/16 12:42 AM) (12/25/16 12:16 AM) (12/24/16 11:01 AM) MCH [27.0-31.0 pg] 30.0 pg 30.8 pg 30.1 pg (12/26/16 12:42 AM) (12/25/16 12:16 AM) (12/24/16 11:01 AM) MCHC [32.0-36.0 g/dL] 33.6 g/dL 34.9 g/dL 33.6 g/dL (12/26/16 12:42 AM) (12/25/16 12:16 AM) (12/24/16 11:01 AM) RDW [11.5-14.5 %] 13.8 % 14.1 % 14.1 % (12/26/16 12:42 AM) (12/25/16 12:16 AM) (12/24/16 11:01 AM) Platelet [133-450 K/CMM] 108 K/CMM 128 K/CMM 127 K/CMM *LOW* *LOW* *LOW* (12/26/16 12:42 AM) (12/25/16 12:16 AM) (12/24/16 11:01 AM) MPV [7.4-10.4 fL] 9.1 fL 9.3 fL 8.6 fL (12/26/16 12:42 AM) (12/25/16 12:16 AM) (12/24/16 11:01 AM) Segs [45.0-75.0 %] 77.6 % 74.9 % 80.0 % *HI* (12/25/16 12:16 AM) *HI* (12/26/16 12:42 AM) (12/24/16 11:01 AM) Lymphocytes [20.0-40.0 %] 12.7 % 14.8 % 11.1 % *LOW* *LOW* *LOW* (12/26/16 12:42 AM) (12/25/16 12:16 AM) (12/24/16 11:01 AM) Monocytes [2.0-12.0 %] 7.1 % 6.8 % 5.3 % (12/26/16 12:42 AM) (12/25/16 12:16 AM) (12/24/16 11:01 AM) Eosinophils [0.0-4.0 %] 1.9 % 2.4 % 2.8 % (12/26/16 12:42 AM) (12/25/16 12:16 AM) (12/24/16 11:01 AM) Basophils [0.0-1.0 %] 0.7 % 1.1 % 0.8 % (12/26/16 12:42 AM) *HI* (12/24/16 11:01 AM) (12/25/16 12:16 AM) Segs-Bands # [1.5-8.1 6.9 K/CMM 7.7 K/CMM 7.4 K/CMM K/CMM] (12/26/16 12:42 AM) (12/25/16 12:16 AM) (12/24/16 11:01 AM) Lymphocytes # [1.0-5.5 1.1 K/CMM 1.5 K/CMM 1.0 K/CMM K/CMM] (12/26/16 12:42 AM) (12/25/16 12:16 AM) (12/24/16 11:01 AM) Monocytes # [0.0-0.8 K/CMM] 0.6 K/CMM 0.7 K/CMM 0.5 K/CMM (12/26/16 12:42 AM) (12/25/16 12:16 AM) (12/24/16 11:01 AM) Eosinophils # [0.0-0.5 0.2 K/CMM 0.2 K/CMM 0.3 K/CMM K/CMM] (12/26/16 12:42 AM) (12/25/16 12:16 AM) (12/24/16 11:01 AM) Basophils # [0.0-0.2 K/CMM] 0.1 K/CMM 0.1 K/CMM 0.1 K/CMM (12/26/16 12:42 AM) (12/25/16 12:16 AM) (12/24/16 11:01 AM) PT [12.0-14.7 seconds] 14.9 seconds *HI* (12/24/16 11:01 AM) INR [0.85-1.17] 1.15 (12/24/16 11:01 AM) PTT [22.9-35.8 seconds] 32.1 seconds (12/24/16 11:01 AM) BACTERIAL - SEROLOGY Most recent to oldest [Reference Range]: 1 2 3 MRSA by PCR Negative (12/25/16 1:53 PM) Immunizations Given and Recorded Vaccine Date Status Refusal Reason pneumococcal 13-valent vaccine 12/25/16 Given Procedures Procedure Date Related Diagnosis Body Site Primary percutaneous transluminal mechanical 12/24/16 thrombectomy, noncoronary, non-intracranial, arterial or arterial bypass graft, including fluoroscopic guidance and intraprocedural pharmacological thrombolytic injection(s); initial vessel Selective catheter placement, common carotid or 12/24/16 innominate artery, unilateral, any approach, with angiography of the ipsilateral extracranial carotid circulation and all associated radiological supervision and interpretation, includes angiography of the c Selective catheter placement, internal carotid 12/24/16 artery, unilateral, with angiography of the ipsilateral intracranial carotid circulation and all associated radiological supervision and interpretation, includes angiography of the extracranial carotid and ce Inguinal herniotomy Manipulation of the vertebrae Social History Social History Type Response Smoking Status Never smoker; Ready to change: No; Concerns about tobacco use in household: No; Exposure to Tobacco Smoke None; Cigarette Smoking Last 365 Days No; Reg Smoking Cessation Counseling No Assessment and Plan Extracted from: Title: Clinical Document Author: Jazmin Kent MD Date: 12/26/16 [facility] DIS[facility] SUMMARY Date of Admission: 12/24/16 Date of Discharge: 12/26/16 Admit Diagnosis: right MCA stroke Discharge Diagnoses: right mca stroke Consults Obtained: none Brief HPI and Hospital Course: This is an 81 yo M with a hx of HTN, afib not on AC or aspirin, hernia repair two weeks prior to admission who presents with left sided weakness, dysarthria and right gaze preference. He was borught to the ER where a CTH showed early changes for right MCA stroke with preserved aspect score of 9. Patient did not get tPA because of recent surgery. CTA showed right carotid occlusion at the terminus. Tanvi ent was taken for IAT and underwent thrombectomy. Patient's symptoms improved afterwards. Patient was not intubated before or after the procedure. MRI brain showed Multifocal areas of diffusion restrict ion are seen within the right basal ganglia compatible with acute/subacute ischemic infarct. ECHO showed a moderately dilated LA, normal ejection fraction and no PFO. EKG was only significant for sinus bradycardia. Patient was restarted on half dose of home sotalolol( 40 mg daily) . Patient was eventually transferred to the stroke unit. He was assessed by PT for falls risk. They recommended out patient PT and he was started on eliquis 5 mg BID which he was dced on. Patient was found to have a UTI for which he was started on antibiotics. Discharge Physical Examination (pertinent positives only): none Final Diagnosis: right MCA stroke Etiology of Stroke: cardio-embolic Discharge Medications: Discharge Medications Occupational Therapy :See MELY Penaloza ONCALL, Evaluate and Treat DX: R MCA ischemic stroke, 1 appl, 0 Refill(s) Ordered by: Leticia Herrera MD - 12/26/2016 09:12 ciprofloxacin 250 mg oral tablet :250 mg, 1 tab, PO, Q12H, for 3 day, 6 tab, 0 Refill(s) Ordered by: Leticia Herrera MD - 12/26/2016 09:12 Physical Therapy :See MELY Penaloza ONCALL, outpatient physical therapy Dx: right MCA stroke, 1 appl, 0 Refill(s) Ordered by: Jazmin Kent MD - 12/26/2016 09:09 Eliquis 5 mg oral tablet :5 mg, 1 tab, PO, BID, 60 tab, 3 Refill(s) Ordered by: Jazmin Kent MD 12/26/2016 09:06 atorvastatin 40 mg oral tablet :40 mg, 1 tab, PO, Bedtime, 30 tab, 3 Refill(s) Ordered by: Jazmin Kent MD - 12/26/2016 09:05 sotalol 80 mg oral tablet :40 mg, 0.5 tab, PO, Bedtime, 30 tab, 3 Refill(s) Ordered by: Jazmin Kent MD - 12/26/2016 09:04 Follow up and Important Plans for Future Care: - Follow up with [facility] in 4-6 weeks, call for an appointment. 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 - Take all medications as prescribed. - Watch for bleeding since you are now on a blood thinner, and seek medical attention for bleeding. - Use walker at all times to prevent falls. Jazmin Kent M.D Neurology PGY2 ID# [id number] Pager # [phone] STROKE ATTENDING I have seen and examined the patient. Furthermore, I have discussed the case with and reviewed the resident's note and agree with the history, exam, assessment and plan. See note below for additions a nd/or exceptions and my findings. Exam is improved and he was noted to also be walking around the unit. Starting Eliquis today and stopping aspirin. Understands importance of blood pressure control. Cleared from PT/OT with walker and family care, is very involved with the patient's care. Patient has neuropathy and has declined recommended use of walker as outpatient, we discussed the importance of using walker for stability to prevent falls while on Eliquis and he and his family demonstrated understanding of this. Regular diet thin liquids. 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 Note : called by pharmacy this after that cipro i nteracts with sotolol. Changed to microbid 7 days 100mg bid and patient has plan to f/u with PCP. [id number] Patient was discharged earlier than expected due to rapid improvement and completion of workup faster than anticipated. Yue Zepeda MD Instrument Fitter of Neurology Pager: [phone] Extracted from: Title: Clinical Document Author: Jazmin Kent MD Date: 12/26/16 Stroke Progress Note Subjective: Patient denies any new complains. No major overnight events. 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 911 was called and rendevouzed with [facility]. The patient is not a tPA candidate due to surgery in a noncompressible area < 14 days ago. IAT activated. ROS: General: No fever, no fatigue CVS: No chest pain or palpitations Respiratory: No cough or shortness of breath GI: no vomiting or abdominal pain. Medications: Medications (15) Active Scheduled Meds (9): 12/25/16 aspirin (aspirin 325 mg tablet, enteric coated) 325 mg PO Daily 12/24/16 atorvastatin 40 mg PO Bedtime 12/26/16 cefTRIAXone (Rocephin) 1 gm IVPB [id number] 12/24/16 docusate 100 mg PO Q12H 12/25/16 gabapentin (gabapentin 400 mg oral capsule) 400 mg PO TID 12/24/16 heparin (heparin 5000 units/mL injectable solution) 5,000 unit SUB-Q Q8H 12/24/16 senna 8.6 mg PO BID 12/24/16 sodium chloride (Saline Flush 0.9%) 10 ml IVP Q12H 12/25/16 sotalol 40 mg PO Bedtime Unscheduled Meds: None PRN Meds (5): 12/24/16 Dextrose 50% in Water IV (Dextrose 50% Syringe) 12.5 gm IVP PRN 12/24/16 Dextrose 50% in Water IV (Dextrose 50% Syringe) 25 gm IVP PRN 12/24/16 glucagon 1 mg IM PRN 12/24/16 sodium chloride (Saline Flush 0.9%) 10 mL IVP PRN 12/24/16 sodium chloride (Saline Flush 0.9%) 10 ml IVP PRN One Time Meds (1): 12/24/16 (Completed) gabapentin (gabapentin 400 mg oral capsule) 400 mg PO ONCE Continuous Infusions: None Objective: Vitals and Temp: Vitals Tmp(F) Pulse BP RR SpO2 FIO2 12/26 06:00 ---- 80 112/57 17 --- --- 12/26 05:00 ---- 79 121/57 19 --- --- 12/26 04:00 ---- 79 131/61 17 --- --- 12/26 03:13 99.9 --- ----- -- --- --- 12/26 03:00 ---- 76 148/65 17 --- --- 24 Hr Tmax: 99.9F (37.72c) at 12/26 03:13 Vital Signs are the last 5 in the past 48 hours. Physical Exam: HEAD - Normocephalic and atraumatic LUNGS - Clear to auscultation, no rales or rhonchi CVS - Rate rhythm regular, no murmur, equal pulses bilaterally ABDOMEN - Soft, non tender, with normal bowel sounds. No hepatosplenomegaly NEUROLOGY: AAO*3 Speech: fluent, comprehension intact, repetition and naming intact wooden tank erector: 2-12 intact Motor: Tone: Normal Power: 5/5 in all groups of muscles in all four limbs Reflexes: 2+ symmetrical bilaterally Plantar: Flexor Drift: absent Sensory: Intact light touch and pin prick sensation Intact vibration and position sense Cerebellar signs: Intact FNT, Rombergs negative Gait: normal Labs: CO2: 27 mEq/L (12/26/16 02:27:23) Chloride Lvl: 108 mEq/L (12/26/16 02:27:23) Sodium Lvl: 142 mEq/L (12/26/16 02:27:23) Glucose Lvl: 95 mg/dL (12/26/16 02:27:23) Calcium Lvl: 8.4 mg/dL Low (12/26/16 02:27:23) Potassium Lvl: 3.7 mEq/L (12/26/16 02:27:23) BUN: 17 mg/dL (12/26/16 02:27:23) AGAP: 10.7 mEq/L (12/26/16 02:27:23) Creatinine Lvl: 1.17 mg/dL (12/26/16 02:27:23) Hct: 43.3 % (12/26/16 02:05:31) Hgb: 14.5 g/dL (12/26/16 02:05:31) MCH: 30.0 pg (12/26/16 02:05:31) MCHC: 33.6 g/dL (12/26/16 02:05:31) MCV: 89.4 fL (12/26/16 02:05:31) MPV: 9.1 fL (12/26/16 02:05:31) Platelet: 108 K/CMM Low (12/26/16 02:05:31) RBC: 4.84 M/CMM (12/26/16 02:05:31) RDW: 13.8 % (12/26/16 02:05:31) WBC: 8.9 K/CMM (12/26/16 02:05:31) Basophils: 0.7 % (12/26/16 02:05:32) Basophils #: 0.1 K/CMM (12/26/16 02:05:32) Eosinophils: 1.9 % (12/26/16 02:05:32) Eosinophils #: 0.2 K/CMM (12/26/16 02:05:32) Lymphocytes: 12.7 % Low (12/26/16 02:05:32) Lymphocytes #: 1.1 K/CMM (12/26/16 02:05:32) Monocytes: 7.1 % (12/26/16 02:05:32) Monocytes #: 0.6 K/CMM (12/26/16 02:05:32) Segs: 77.6 % High (12/26/16 02:05:32) Segs-Bands #: 6.9 K/CMM (12/26/16 02:05:32) INR: 1.15 (12/24/16 11:24:40) Stroke Work up : CTH: 1. Early acute right MCA infarct. Aspects score equals 9. No hemorrhage. 2. 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 Correlation for history of diplopia is recommended. CTA: 1. Normal CTA of the neck apart from reduced contrast density in the right internal carotid artery resulting from distal occlusion. 2. A t-occlusion of the carotid terminus is present. Extension into the A1 and M1 segments is evident. Given the lack of cervical disease, this is felt to be a cardioembolic event. 3. Abnormal right V4 segment immediately proximal to the confluence. Again, in light of the absence of significant atherosclerotic changes elsewhere, this may represent a small intraluminal, nonocclusive, thrombus rather than merely atherosclerosis. 4.Otherwise normal CTA of the head. 5.Abnormal perfusion to the right cerebral hemisphere with essentially preserved cerebral blood volume. Large region of resulting mismatch. cerebral angiogram: 1. Right internal carotid artery : Right internal carotid artery injection revealed opacification of the right internal carotid artery with complete occlusion at the communicating s egment after the takeoff of the right posterior communicating artery . There is evidence of perfusion deficit associated with the right hemisphere and both middle cerebral artery and anterior cerebral artery territory . ECHO: 1) Left ventricular size and systolic function is normal. LV ejection fraction is estimated at 60%-65%. Normal left ventricular diastolic filling is observed. 2) Right ventricular is moderate to severely enlarged with normal systolic function. 3) Left atrium is moderately dilated and right atrium is severely dilated. 4) No evidence of patent foramen ovale demonstrated by saline contrast study at rest, cough and with vasalva. 5) No significant valvular abnormality is seen. 6) Right ventricular systolic pressure was estimated at 21 mmHg assuming a right atrial pressure of 3 mmHg. 7) Aortic root is normal in size. 8) There is no pericardial effusion. 9) IVC is not well seen. 10) No prior study is available for comparison. Rehab Services: PT- home with family. Needs outpatient PT for falls risk. ST- diet Assessment: 1. Right internal carotid artery : Right internal carotid artery injection revealed opacification of the right internal carotid artery with complete occlusion at the communicating segment after the riaz eoff of the right posterior communicating artery . There is evidence of perfusion deficit associated with the right hemisphere and both middle cerebral artery and anterior cerebral artery territory . Diagnosis: 81 yo with HTN pw R MCA syndrome, not a tPA candidate due to recent surgery taken to [place] for RMCA occlusion. Now has improved Etiology: TbD Plan: # Ischemic Stroke: - MRI brain with no HT - consider starting eliquis depending on risk of falls # Secondary Prevention of Stroke: - Antiplatelet agent: ASA 325 mg po daily - Statin: Lipitor 40 mg daily - BP controlled - Glucose: conrolled on SSI. #Afib: - likely the etiology of the stroke - consider starting on eliquis if no risk of falls. - On sotalol 40 mg daily for rate control. Has been running in the 50's-70's. #UTI: - Has large leukocyte esterase - started on rocephin 1 gm X 3 days # Prophylaxis: - DVT: Heparin sq, NANI, SCD - GI: Not indicated - Bowel: Colace and Senna # Code Status: Full code # Disposition: pending Jazmin Kent M.D Neurology PGY2 ID# [id number] Pager # [phone] Extracted from: Title: Stroke Team H&P Author: Deidra Simpson WHITE MIXING OPERATOR Date: 12/24/16 Stroke History & Physical Chief Complaint: R gaze, L Hemiparesis, History of Present Illness: 81 yo white male with pmh HTN, unknown arrhtymia, hernia repair 12/12/15 fully functional and independent at baseline LSN at 0830 when he walked to the bathroom, heard a commotion and checked on him and found him at 0845 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 911 was called and rendevouzed with [facility]. The patient is not a tPA candidate due to surg samira in a noncompressible area < 14 days ago. IAT activated. Review of Systems: GEN: no fever, chills, weight loss, fatigue EYES: no blurred vision, double vision CARDIO: no chest pain, palpitations PULM: no shortness of breath, cough GI: no nausea, vomiting, diarrhea, + mild post surgical abd pain : no frequency, dysuria, hematuria NEURO: see HPI SKIN: no rash or lesion MSK: no pain, swelling, redness, heat in muscles, no limited ROM, weakness, or atrophy, no cramps LYMPH/IMMUNO: No lymph node enlargement/tenderness, no heat/cold intolerance Past Medical History: HTN Past Surgical History: HErnia repair Family Medical History: unknown Social History: Denies alcohol and illicit drug use. Denies smoking. lives with , fully functional and independent Medications: occasional ASA, losartaan, sotalol Allergies:NKDA Physical Exam: GENERAL: Awake, alert in NAD HEENT: - Normocephalic and atraumatic, dry mm, no LN++, no Thyromegally LUNGS - Clear to auscultation bilaterally with no wheezes CV - S1S2 RRR, no m/r/g, equal pulses bilaterally. ABDOMEN - Soft, RLQ recent incision with edema, bruising, and steristrips, nondistended with normoactive BS NEURO: Mental Status: AA&Ox3 Language: speech is dysarthric. Naming, repitition, fluency, and comprehension intact. Cranial Nerves: PERRL 4 mm/brisk. EOMI, R forced gaze, no BTT from Left, LFD, otherwise intact Motor: full strength on R, L hemiplegia Tone: is normal and bulk is normal Sensation- +sensory neglect L hemibody Coordination: FTN intact bilaterally, no ataxia in BLE. Gait- deferred NIH Stroke Scale (NIHSS) 0 1a. Level of Consciousness; 0-alert 1-drowsy 2-stupor 3-coma 0 1b. LOC Questions month and age; 0-both 1-one 2-neither 0 1c. LOC Commands open/close eyes, resident associate/release non-paretic hand; 0-both 1- one 2-neither 2 2. Best Gaze; 0-nl 1-partial 2-forced gaze 2 3. Visual Tavares; 0-No visual loss. 1-Partial hemianopia 2-Complete 3-Bilateral 2 4. Facial Palsy; 0-none 1-minor 2-partial 3-complete 0 5. Motor - R arm; 0-No drift 1-Drift 2-Some antigravity 3-No antigravity 4- No movement 0 6. Motor - R leg; 0-No drift 1-Drift 2-Some antigravity 3-No antigravity 4- No movement 4 7. Motor - L arm; 0-No drift 1-Drift 2-Some antigravity 3-No antigravity 4- No movement 4 8. Motor - L leg; 0-No drift 1-Drift 2-Some antigravity 3-No antigravity 4- No movement 0 9. Limb Ataxia; 0 absent 1 - 1limb 2 - 2 limbs 2 10. Sensory; 0-nl 1-partial loss 2-dense loss 0 11. Best Language; 0-nl 1-mild/mod 2-severe 3-mute 1 12. Dysarthria; 0-nl 1-mild/mod 2-severe x-untestable 2 13. Extinction and Inattention (formerly Neglect); 0-none 1-partial 2- complete TOTAL SCORE 19 EKG: Javier Imaging: CT Head: By my read Aspects 9 (R insula), no hemorrhag, hyperdense R carotid terminus CTA H&N: By y read, R carotid terminus partial occlusion with partial recan of M1 and reocclusion at m2 Labs (Last four charted values) WBC 9.3 (DEC 24) Hgb 14.0 (DEC 24) Hct L 41.7 (DEC 24) Plt L 127 (DEC 24) Na 140 (DEC 24) K 3.5 (DEC 24) CO2 25 (DEC 24) Cl 106 (DEC 24) Cr 1.20 (DEC 24) BUN H 27 (DEC 24) Glucose Random H 105 (DEC 24) Ca L 7.7 (DEC 24) PT H 14.9 (DEC 24) INR 1.15 (DEC 24) PTT 32.1 (DEC 24) Troponin <0.02 (DEC 24) CK MB <0.5 (DEC 24) Total CK 36 (DEC 24) ASSESSMENT/PLAN: 81 yo with HTN pw R MCA syndrome, not a tPA candidate due to recent surgery taken to [place] for RMCA occlusion I63.411 Cerebral infarction due to embolism of right middle cerebral artery Acuity: Acute Current Suspected Etiology: under investigation Continue Evaluation: Pending neuroimaging evaluations, lab tests, monitor telemetry events, follow-up neuro imaging reports. Treatments: -Admit to: 7 J ICU -Start Aspirin 24hours post procedure (12/25 at 1200p) per Dr. Gutierrez -BP perameters 130-[address] Jason -MRI/ECHO/A1C/Lipid panel. -Hyperglycemia management per SSI to maintain glucose 140-180mg/dL. 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 The patient was evaluated in the ED and escorted to CT. CT with hyperdense R MCA and CTA with R M1/2 occlsusion. Due to surgery < 14 days ago, and inability to talk to family (no answer to several attempts), the patient is not a tPA candidate howlisae r, given the large vessel occlusion, he is a candidate for IAT. I discussed the case with the stroke attending who agreed. IA was activated and the ed was informed. The patient was taken to IAT as a n emergent procedure. I spent a total of 113 ([phone]) minutes at the bedside evaluating the patient, reviewing data, discussing and coordinating the plan of care with the treatment teams and updating the patient on the plan of care [id number] First 31-74 minutes [id number] x2 ACUTE STROKE BENCHMARKS: TIME PT LAST SEEN NORMAL 0830 EMS PRE-NOTIFICATION 1025 CODE STROKE ACTIVATION 1025 ARRIVAL TIME 1052 TIME OF STROKE TEAM EVALUATION 1052 CT HEAD READ TIME my read 1100 IV tPA bolus (time and dose) IV tPA infusion (time and dose) If not a candidate for IV tPA, why? recent surgery Delays in this process: (None) [place] -IAT notified 1110 -Time to room 1133 -Procedure start time 1152 -Time to clot 1209 -Trevo 1211 -TICI 3 recann 1219 Addendum by Yue Zepeda MD on Stroke attending addendum: 12/24/2016 17:16 I have independently seen and examined the patient today after transfer to the ICU post IAT (approximately 15:30-15:35) where I was able to discuss with the patient and his /brother the decision rich ing process, imaging, and likely etiology of stroke as well as the planned studies and therapies while inpatient. I have discussed the case with Deidra Simpson NP, regarding the decision not to give IV t PA in the setting of recent abdominal surgery as well as the decision to undergo [place] thrombectomy given acceptable time window and favorable perfusion/ CTB profile. 81yo male with HTN, now confirmed to also have a history of atiral fibrillation (never been on anticoagulation), and hernia repair 12 days ago, who presented with R MCA syndrome, minimal early ischemic changes on CTB and perfusion mismatch with R MCA occlusion noted as hyperdense MCA sign on CTB, consistent with ischemic stroke, s/p thrombectomy. Not a candidate for IV tPA due to recent major surgery at noncompressible site < 14 days ago. Exam: On my exam he is alert and oriented, fluent, following commands, no apparent neglect. EOMI, mild left facial droop, mild dysarthria. No drift B/l UE. LLE limited by recent groin punture but RLE is intact and he is able to wiggle toes on left. Impression: R MCA ischemic stroke s/p successful thrombectomy, likely 2/2 atrial fibrillation, pending further workup. Plan: -Patient is admitted to ICU for close neuro monitoring and vs checks -HOB flat, NS at 75cc/hour -Aspirin 325mg PO daily for now -MRI brain to eval large territory infarct or HT and consider bridging aspirin to anticoagulation. Will discuss anticoagulation options with family. 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 NPP documented full note. [id number]
[2019-01-26] MEDS ORDERED: MORPHINE 4 MG/ML SYR ONE ×2 (17:14→18:10)
[2019-01-26] MEDS ORDERED: NA CHLORIDE 0.9% 1,000 ML ONE (17:14)
[2019-01-26] MEDS ORDERED: ONDANSETRON 4 MG/2 ML VIAL ONE (17:14)
[2019-01-26 17:42] LABS: Absolute Lymphocytes (CBC) 1.4 K/uL (0.7-4.9); Absolute Monocytes 0.4 K/uL (0.1-1.3); Absolute Neutrophil 5.1 K/uL (1.8-8.0); Eosinophils % 2.4 % (0-4.4); Hematocrit 46.9 % (39.6-49.0); Lymphocytes % 19.6 % (15.3-44.8); MPV 9.3 fL (7.6-11.3); Monocytes % 6.2 % (3.3-12.3); RBC Red Blood Cell Count 5.24 M/uL (4.33-5.43)
[2019-01-26 17:53] LABS: Albumin 3.7 g/dL (3.4-5.0); Bilirubin Direct 0.3 mg/dL (0-0.2); Potassium 4.2 mmol/L (3.5-5.1); Protein, Total 7.6 g/dL (6.4-8.2)
--- NOTE | 2019-01-26 17:57 | RAD REPORT ---
EXAM DESCRIPTION: CT - Stone Protocol - 01/26/2019 5:33 pm CLINICAL HISTORY: Abdominal pain. Left flank pain COMPARISON: 2016 TECHNIQUE: Computed axial tomography of the abdomen pelvis was obtained without oral or IV contrast. Lack of IV and oral contrast limits evaluation of solid organs, bowel, and vessels. Coronal reformat srinath images were obtained and reviewed. All CT scans are performed using dose optimization technique as appropriate and may include automated exposure control or mA/KV adjustment according to patient size. FINDINGS: Tiny left renal calculi. Moderate left hydronephrosis. 4.5 millimeter calculus proximal le ft ureter Hounsfield unit 1500. Bilateral renal cysts. 22 millimeter hemorrhagic/proteinaceous right renal cyst unchanged Small hepatic cysts unchanged. Spleen, pancreas and adrenals appear grossly normal There is no evidence of diverticulitis. The appendix is normal Small left inguinal hernia. Postsurgical changes right inguinal hernia repair. IMPRESSION: A 4.5 millimeter left ureteral calculus resulting in moderate left hydronephrosis
[2019-01-26] MEDS ORDERED: KETOROLAC 30 MG/ML INJ ONE (18:25)
[2019-01-26 19:25] LABS: Urine Blood 3+ (NEG); Urine Glucose NEGATIVE (NEG); Urine Protein 1+ (NEG)
--- NOTE | 2019-01-26 19:31 | ER ---
Nurse's Notes [facility] Name: Madi Manning Age: 83 yrs Sex: Male : 1935 Arrival Date: 01/26/2019 Time: 16:43 Bed 7 Private MD: Diagnosis: Hydronephrosis with renal and ureteral calculous obstruction Presentation: 01/26 16:46 Presenting complaint: Left flank pain 9/10 x 1 hr. Denies urinary s/s or fever. hb Transition of care: patient was not received from another setting of care. Onset of symptoms was January 26, 2019. Risk Assessment: Do you want to hurt yourself or someone else? Patient reports no desire to harm self or others. Care prior to arrival: None. 16:46 Method Of Arrival: Ambulatory hb 16:46 Acuity: JOLANTA 3 hb 17:15 Initial Sepsis Screen: Does the patient meet any 2 criteria? No. Patient's initial ph sepsis screen is negative. Does the patient have a suspected source of infection? No. Patient's initial sepsis screen is negative. Historical: - Allergies: 16:49 No Known Allergies; hb - Home Meds: 16:49 Benicar Oral [Active]; Eliquis Oral [Active]; gabapentin Oral [Active]; sotalol Oral hb [Active]; Tylenol #3 Oral [Active]; - PMHx: 16:49 Atrial Fib; CVA; 12/2015; enlarged prostate; Hypertension; Kidney stones; hb - PSHx: 16:49 back sx; prostate sx; Hernia repair; hb - Immunization history:: Adult Immunizations up to date. - Social history:: Smoking status: Patient/guardian denies using tobacco. - Ebola Screening: : No symptoms or risks identified at this time. Screenin:00 Abuse screen: Denies threats or abuse. Denies injuries from another. Nutritional ph screening: No deficits noted. Tuberculosis screening: No symptoms or risk factors identified. Fall Risk None identified. Assessment: 17:15 General: Appears in no apparent distress. uncomfortable, well groomed, Behavior is ph calm, cooperative, appropriate for age, Denies fever. Pain: Complains of pain in left low back and left mid back Pain radiates to left lower quadrant and anterior aspect of left lateral abdomen and left flank Pain currently is 9 out of 10 on a pain scale. Pain began 1 hour ago. Neuro: Level of Consciousness is awake, alert, obeys commands, Oriented to person, place, time, situation. Cardiovascular: Capillary refill < 3 seconds in bilateral fingers Patient's skin is warm and dry. Respiratory: Airway is patent Respiratory effort is even, unlabored, Respiratory pattern is regular, symmetrical. GI: Abdomen is round non-distended, Patient currently denies diarrhea, nausea, vomiting. : Reports pain in left flank(s), lower quadrant(s) in lower back Denies burning with urination, inability to void. Derm: Skin is intact, is healthy with good turgor, Skin is pink, warm \T\ dry. Musculoskeletal: Circulation, motion, and sensation intact. Range of motion: intact in all extremities. 18:00 Reassessment: Patient appears in no apparent distress at this time. Patient and/or ph family updated on plan of care and expected duration. Pain level reassessed. Patient is alert, oriented x 3, equal unlabored respirations, skin warm/dry/pink. Pt c/o pain returning after CT scan, rates pain 8/10 at this time, see MAR for orders. 18:20 Reassessment: Patient appears in no apparent distress at this time. Patient is alert, ph oriented x 3, equal unlabored respirations, skin warm/dry/pink. Pt reports that pain has not improved after IV medication, ERP notified, see MAR. 18:45 Reassessment: Patient appears in no apparent distress at this time. Patient and/or ph family updated on plan of care and expected duration. Pain level reassessed. Patient is alert, oriented x 3, equal unlabored respirations, skin warm/dry/pink. Pt resting quietly, reports that pain has improved to 4/10 and denies nausea at this time, family at bedside, VSS. 20:07 Reassessment: Patient appears in no apparent distress at this time. Patient and/or ed1 family updated on plan of care and expected duration. Pain level reassessed. Patient is alert, oriented x 3, equal unlabored respirations, skin warm/dry/pink. Patient states feeling better. Patient states symptoms have improved. Vital Signs: 16:48 BP 131 / 74; Pulse 61; Resp 18; Temp 97.8; Pulse Ox 100% on R/A; Pain 9/10; hb 18:00 BP 124 / 82; Pulse 63; Resp 20; Pulse Ox 98% ; ph 19:07 BP 112 / 97; Pulse 61; Resp 16; Pulse Ox 100% on R/A; mt 20:07 BP 127 / 73; Pulse 72; Resp 17; Pulse Ox 99% on R/A; Pain 2/10; ed1 ED Course: 16:43 Patient arrived in ED. as 16:48 Triage completed. hb 16:48 Arm band placed on. hb 16:55 Olga Lidia Barreto, JAYASHREE is Primary Nurse. ph 16:57 Miles Deluca MD is Attending Physician. kdr 17:16 Rodger Acsota PA is PHCP. jr8 17:20 Inserted saline lock: 20 gauge in left antecubital area, using aseptic technique. Blood ph collected. 17:[address] vm2 17:30 Patient has correct armband on for positive identification. Bed in low position. Call ph light in reach. Side rails up X 1. Pulse ox on. NIBP on. Door closed. Noise minimized. Warm blanket given. Pillow given. 17:33 CT completed. Patient tolerated procedure well. Patient moved back from CT. nj 17:34 CT Stone Protocol In Process Unspecified. EDMS 19:31 Philip Berman MD is Referral Physician. jr8 19:31 Urine Microscopic Only Sent. mt 19:47 XRAY KUB In Process Unspecified. EDMS 19:51 No provider procedures requiring assistance completed. ph 20:07 IV discontinued, intact, bleeding controlled, No redness/swelling at site. Pressure ed1 dressing applied. Administered Medications: 17:25 Drug: morphine 4 mg Route: IVP; Site: right antecubital; ph 17:45 Follow up: Response: No adverse reaction; Pain is decreased ph 17:25 Drug: Zofran 4 mg Route: IVP; Site: left antecubital; ph 17:45 Follow up: Response: No adverse reaction ph 17:25 Drug: NS 0.9% 1000 ml Route: IV; Rate: 75 ml/hr; Site: left antecubital; ph 19:44 Follow up: Response: No adverse reaction; IV Status: Completed infusion ph 18:05 Drug: morphine 4 mg Route: IVP; Site: left antecubital; ph 18:20 Follow up: Response: No adverse reaction; Pain is unchanged, physician notified ph 18:27 Drug: TORadol 30 mg Route: IVP; Site: left antecubital; ph 18:45 Follow up: Response: No adverse reaction; Pain is decreased ph Outcome: 19:31 Discharge ordered by MD. elmore 20:07 Discharged to home ambulatory, with family. ed1 20:07 Condition: good 20:07 Discharge instructions given to patient, family, Instructed on discharge instructions, follow up and referral plans. medication usage, Demonstrated understanding of instructions, follow-up care, medications, Prescriptions given X 2. 20:10 Patient left the ED. ed1 Signatures: Dispatcher [employer] EDMS Miles Deluca MD MD [facility] Sarika Muhammad Erika, RN RN ed1 Rodger Acosta PA PA jr Olga Lidia Barreto RN RN Asuncion Thomas RN RN Sim Modi [facility] Rani [place] Corrections: (The following items were deleted from the chart) 18:12 17:38 morphine 4 mg IVP in right antecubital ph ph
--- NOTE | 2019-01-26 19:32 | EDPHYS ---
Physician Documentation [facility] Name: Madi Manning Age: 83 yrs Sex: Male : 1935 Arrival Date: 01/26/2019 Time: 16:43 Bed 7 Private MD: ED Physician Miles Deluca HPI: 01/26 18:07 This 83 yrs old Male presents to ER via Ambulatory with complaints of Flank jr8 Pain. 18:07 The patient complains of pain in the left flank. radiation to LLQ abdomen. Onset: The jr8 symptoms/episode began/occurred acutely, today. Modifying factors: The symptoms are alleviated by nothing. the symptoms are aggravated by nothing. Associated signs and symptoms: Pertinent positives: nausea. Severity of pain: At its worst the pain was moderate in the emergency department the pain is unchanged. The patient has experienced a previous episode, history of renal stones. Feels similar to previous event . The patient has not recently seen a physician. Historical: - Allergies: 16:49 No Known Allergies; hb - Home Meds: 16:49 Benicar Oral [Active]; Eliquis Oral [Active]; gabapentin Oral [Active]; sotalol Oral hb [Active]; Tylenol #3 Oral [Active]; - PMHx: 16:49 Atrial Fib; CVA; 12/2015; enlarged prostate; Hypertension; Kidney stones; hb - PSHx: 16:49 back sx; prostate sx; Hernia repair; hb - Immunization history:: Adult Immunizations up to date. - Social history:: Smoking status: Patient/guardian denies using tobacco. - Ebola Screening: : No symptoms or risks identified at this time. ROS: 18:07 Eyes: Negative for injury, pain, redness, and discharge, ENT: Negative for injury, jr8 pain, and discharge, Neck: Negative for injury, pain, and swelling, Cardiovascular: Negative for chest pain, palpitations, and edema, Respiratory: Negative for shortness of breath, cough, wheezing, and pleuritic chest pain, MS/Extremity: Negative for injury and deformity, Skin: Negative for injury, rash, and discoloration, Neuro: Negative for headache, weakness, numbness, tingling, and seizure. 18:07 Abdomen/GI: Positive for abdominal pain, nausea, Negative for vomiting, diarrhea, abdominal distension, anorexia, dysphagia, hematemesis, black/tarry stool, rectal pain, rectal bleeding, bowel incontinence, flatulence. 18:07 Back: Positive for flank pain, on the left. Exam: 18:07 Eyes: Pupils equal round and reactive to light, extra-ocular motions intact. Lids and jr8 lashes normal. Conjunctiva and sclera are non-icteric and not injected. Cornea within normal limits. Periorbital areas with no swelling, redness, or edema. ENT: Nares patent. No nasal discharge, no septal abnormalities noted. Tympanic membranes are normal and external auditory canals are clear. Oropharynx with no redness, swelling, or masses, exudates, or evidence of obstruction, uvula midline. Mucous membranes moist. Neck: Trachea midline, no thyromegaly or masses palpated, and no cervical lymphadenopathy. Supple, full range of motion without nuchal rigidity, or vertebral point tenderness. No Meningismus. Cardiovascular: Regular rate and rhythm with a normal S1 and S2. No gallops, murmurs, or rubs. Normal PMI, no JVD. No pulse deficits. Respiratory: Lungs have equal breath sounds bilaterally, clear to auscultation and percussion. No rales, rhonchi or wheezes noted. No increased work of breathing, no retractions or nasal flaring. Back: No spinal tenderness. No costovertebral tenderness. Full range of motion. Skin: Warm, dry with normal turgor. Normal color with no rashes, no lesions, and no evidence of cellulitis. MS/ Extremity: Pulses equal, no cyanosis. Neurovascular intact. Full, normal range of motion. Neuro: Awake and alert, GCS 15, oriented to person, place, time, and situation. Cranial nerves II-XII grossly intact. Motor strength 5/5 in all extremities. Sensory grossly intact. Cerebellar exam normal. Normal gait. 18:07 Abdomen/GI: Inspection: abdomen appears normal, Bowel sounds: active, all quadrants, Palpation: soft, in all quadrants, mild abdominal tenderness, in the anterior aspect of left lateral abdomen and left lower quadrant, mass, is not appreciated, rebound tenderness, is not appreciated, voluntary guarding, is not appreciated, involuntary guarding, is not appreciated, no appreciated organomegaly, Indicators: McBurney's point is not tender, Mcclure's sign is negative, Rovsing's sign is negative, Liver: tenderness, is not appreciated. Vital Signs: 16:48 BP 131 / 74; Pulse 61; Resp 18; Temp 97.8; Pulse Ox 100% on R/A; Pain 9/10; hb 18:00 BP 124 / 82; Pulse 63; Resp 20; Pulse Ox 98% ; ph 19:07 BP 112 / 97; Pulse 61; Resp 16; Pulse Ox 100% on R/A; mt 20:07 BP 127 / 73; Pulse 72; Resp 17; Pulse Ox 99% on R/A; Pain 2/10; ed1 MDM: 17:20 Patient medically screened. [facility] 19:29 Data reviewed: vital signs, nurses notes, lab test result(s), radiologic studies, CT jr scan, plain films. Data interpreted: Pulse oximetry: on room air is 100 %. Interpretation: normal. Counseling: I had a detailed discussion with the patient and/or guardian regarding: the historical points, exam findings, and any diagnostic results supporting the discharge/admit diagnosis, lab results, radiology results, the need for outpatient follow up, a urologist, to return to the emergency department if symptoms worsen or persist or if there are any questions or concerns that arise at home. Physician consultation: Philip Berman MD was called at 19:30, was contacted at 19:30, regarding consult, patient's condition, Agrees patient is fine to go home for now. Knows to come back if worse. Will see him in office on Thursday morning. 01/26 17:21 Order name: Basic Metabolic Panel; Complete Time: 18: 01/26 17:21 Order name: CBC with Diff; Complete Time: 18: 01/26 17:21 Order name: Creatinine for Radiology; Complete Time: 18:01/26 17:21 Order name: Hepatic Function; Complete Time: 18: 01/26 17:21 Order name: Lipase; Complete Time: 18: 01/26 19:20 Order name: Urine Dipstick--Ancillary (enter results); Complete Time: 19:29 em1 01/26 17:21 Order name: CT Stone Protocol; Complete Time: 18:09 01/26 19:29 Order name: Urine Microscopic Only; Complete Time: 19:57 01/26 19:29 Order name: XRAY KUB 01/26 19:42 Order name: Urine Culture [facility] 01/26 17:21 Order name: IV Saline Lock; Complete Time: 18:23 8 01/26 17:21 Order name: Labs collected and sent; Complete Time: 18:8 01/26 17:21 Order name: Urine Dipstick-Ancillary (obtain specimen); Complete Time: 19:30 Administered Medications: 17:25 Drug: morphine 4 mg Route: IVP; Site: right antecubital; ph 17:45 Follow up: Response: No adverse reaction; Pain is decreased ph 17:25 Drug: Zofran 4 mg Route: IVP; Site: left antecubital; ph 17:45 Follow up: Response: No adverse reaction ph 17:25 Drug: NS 0.9% 1000 ml Route: IV; Rate: 75 ml/hr; Site: left antecubital; ph 19:44 Follow up: Response: No adverse reaction; IV Status: Completed infusion ph 18:05 Drug: morphine 4 mg Route: IVP; Site: left antecubital; ph 18:20 Follow up: Response: No adverse reaction; Pain is unchanged, physician notified ph 18:27 Drug: TORadol 30 mg Route: IVP; Site: left antecubital; ph 18:45 Follow up: Response: No adverse reaction; Pain is decreased ph Disposition: 01/27 06:32 Co-signature as Attending Physician, Miles Deluca MD I agree with the assessment and kdr plan of care. Disposition: 01/26/19 19:31 Discharged to Home. Impression: Hydronephrosis with renal and ureteral calculous obstruction. - Condition is Stable. - Discharge Instructions: Kidney Stones, Hydronephrosis. - Prescriptions for Tylenol- Codeine #3 300-30 mg Oral Tablet - take 2 tablet by ORAL route every 6 hours As needed; 30 tablet. Flomax 0.4 mg Oral Capsule, Sust. Release 24 hr - take 1 capsule by ORAL route once daily 1/2 hour following the same meal each day; 30 capsule. - Medication Reconciliation Form, Thank You Letter, Antibiotic Education, Prescription Opioid Use form. - Follow up: Philip Berman MD; When: 48 Hours; Reason: Recheck today's complaints, Continuance of care, Re-evaluation by your physician. - Problem is new. - Symptoms have improved. Signatures: Dispatcher [employer] EDMS Miles Deluca MD MD [facility] Brigida Davis RN RN ed1 Rodger Acosta PA PA jr8 Olga Lidia Barreto RN RN Asuncion Thomas RN RN Corrections: (The following items were deleted from the chart) 01/26 20:10 19:31 01/26/2019 19:31 Discharged to Home. Impression: Hydronephrosis with renal and ed1 ureteral calculous obstruction. Condition is Stable. Forms are Medication Reconciliation Form, Thank You Letter, Antibiotic Education, Prescription Opioid Use. Follow up: Philip Berman; When: 48 Hours; Reason: Recheck today's complaints, Continuance of care, Re-evaluation by your physician. Problem is new. Symptoms have improved. jr8
[2019-01-26 19:40] LABS: Urine Bacteria >50 /HPF (NONE SEEN); Urine RBC >50 /HPF (NONE SEEN)
[2019-01-26 19:41] LABS: Urine Culture Reflex Order REFLEXED
--- NOTE | 2019-01-26 20:16 | RAD REPORT ---
EXAM DESCRIPTION: RAD - Abdomen 1 View (KUB) - 01/26/2019 7:54 pm CLINICAL HISTORY: Abdomen pain. FINDINGS: Air is present within nondilated small bowel in a nonspecific fashion The patient's known left ureteral calculus is equivocally visualized inferolateral to the left transv erse process of L3
== END 2019-01-26 20:10 | disposition home or self-care (01) ==
LOC: ER 16:42
DX: N13.2 Hydronephrosis with renal and ureteral calculous obstruction (principal); I48.91 Unspecified atrial fibrillation; I10 Essential (primary) hypertension; Z86.73 Personal history of transient ischemic attack (TIA), and cerebral infarction without residual deficits; Z79.01 Long term (current) use of anticoagulants
CPT/HCPCS: 36415; 74018; 74176; 76377; 80048; 80076; 83690; 85025; 87086; 87088; J2405; J7030; 81003; 81015; 87077; 87186; 99284

== ENCOUNTER 2019-01-31 11:20 | Observation (INO) | payer OTHER, MEDICARE ==
--- OUTSIDE RECORDS SUMMARY | 2019-01-31 11:27 | XMS REPORT | Continuity of Care Document ---
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/[address] LF Active 12/24/[address] Hyperlipidemia Resolved Problem 12/29/2016 [facility] HTN (<span Resolved Problem 12/29/2016 [facility] ID="[id number]" Medical >Confirmed</span> Center ) CEREBRAL Active [facility] INFARCTION, Medical UNSPECIFIED Center Medications Medication Details Route Status Patient Ordering Order Source Instructions Provider Date Hydrochlorothiazide 1 tab, PO, Inactive 12/26[facility] [place] 12.5 MG / Losartan Daily, 0 2016 Medical Potassium 100 MG Refill(s) Center Oral Tablet Eliquis 5 mg, 1 tab, Inactive 12/26[facility] Route: PO, Drug 2017 Medical form: TAB, Center Q12H, Dosing Weight 100, kg, Priority: NOW, Start date: 12/26/16 9:17:00 IT PROGRAM MANAGER, Duration: 30 day, Stop date: 01/25/17 9:00:00 CSTNotes: Same as: Eliquis ciprofloxacin 250 250 mg=1 tab, Active 12/26[facility] [place] mg oral tablet PO, Q12H, X 3 2016 day, # 6 tab, 0 Center Refill(s) Occupational See Active 12/26[facility] Graciela Therapy Instructions, 2017 [facility] [place]uate and Treat DX: R MCA ischemic stroke, # 1 appl, 0 Refill(s) Physical Therapy See Active 12/26[facility]: right MCA stroke, # 1 appl, 0 Refill(s) apixaban 5 MG Oral 5 mg=1 tab, PO, Active 12/26[facility] [place] Tablet [Eliquis] BID, # 60 tab, 2017 Medical 3 Refill(s) Center ciprofloxacin 250 250 mg=1 tab, Inactive 12/26[facility] [place] mg oral tablet PO, Q12H, X 10 2016 day, # 20 tab, Center 0 Refill(s) atorvastatin 40 mg 40 mg=1 tab, Active [place] oral tablet PO, Bedtime, # 2017 Medical 30 tab, 3 Center Refill(s) sotalol 80 mg oral 40 mg=0.5 tab, Active [place] tablet PO, Bedtime, # 2017 Medical 30 tab, 3 Center Refill(s) Rocephin 1 gm, Route: Inactive [place] IVPB, Drug 2016 Medical form: PDR/INJ, Center [id number], Dosing Weight 100, kg, Start date: 12/26/16 7:00:00 IT PROGRAM MANAGER, Stop date: 12/28/16 8:00:00 CSTNotes: (Same As: Rocephin). Use with 100 mL NS and infuse over 30 min MEDICATION WASTE Product Size: 1000 mg Product Wasted: ___ mg Sotalol 40 mg, Route: Inactive [place] Hydrochloride 80 MG PO, Q12H, 2016 Medical Oral Tablet Dosing Weight Center 100, kg, Start date: 12/25/16 21:00:00 IT PROGRAM MANAGER, Duration: 30 day, Stop date: 01/24/17 9:00:00 IT PROGRAM MANAGER sotalol 40 mg, 0.5 tab, No Longer [place] Route: PO, Drug Active 2016 Medical form: TAB, Center Bedtime, Start date: 12/25/16 21:00:00 IT PROGRAM MANAGER, Duration: 30 day, Stop date: 01/23/17 21:00:00 CSTNotes: (Same As: Betapace) 40 mg=1/2 x 80 mg TAB pneumococcal 0.5 mL, Route: Inactive [place] 13-valent vaccine IM, Drug Form: 2017 Medical INJ, Daily, Center Start date: 12/25/16 18:00:00 IT PROGRAM MANAGER, Duration: 1 doses or times, Stop date: 12/25/16 18:00:00 CSTNotes: (Same as: Prevnar 13) gabapentin 400 MG 400 mg, 1 cap, No Longer [place] Oral Capsule Route: PO, Drug Active 2016 Medical form: CAP, TID, Center Dosing Weight 100, kg, Start date: 12/25/16 9:00:00 IT PROGRAM MANAGER, Duration: 30 day, Stop date: 01/23/17 17:00:00 CSTNotes: (Same as: Neurontin) Aspirin 325 MG 325 mg, 1 tab, No Longer [place] Enteric Coated Route: PO, Drug Active 2016 Medical Tablet form: ECTAB, Center Daily, Dosing Weight 100, kg, Start date: 12/25/16 9:00:00 IT PROGRAM MANAGER, Duration: 30 day, Stop date: 01/23/17 9:00:00 CSTNotes: (Do Not Crush) Do not crush or chew. Streptococcus 0.5 mL, Route: Inactive [place] pneumoniae serotype IM, Drug Form: 2016 Medical 1 capsular antigen INJ, Daily, Center diphtheria [id number] Start date: protein conjugate 12/25/16 vaccine / 9:00:00 IT PROGRAM MANAGER, Streptococcus Duration: 1 pneumoniae serotype doses or times, 14 capsular antigen Stop date: diphtheria [id number] 12/25/16 protein conjugate 9:00:00 vaccine / CSTNotes: (Same Streptococcus as: Prevnar 13) pneumoniae serotype 18C capsular antigen d gabapentin 400 MG 400 mg, 1 cap, No Longer [place] Oral Capsule Route: PO, Drug Active 2016 Medical form: CAP, Center ONCE, Dosing Weight 100, kg, Start date: 12/24/16 23:47:00 IT PROGRAM MANAGER, Stop date: 12/24/16 23:47:00 CSTNotes: (Same as: Neurontin) Saline Flush 0.9% 10 ml, Route: No Longer [place] IVP, Drug Form: Active 2016 Medical INJ, Dosing Center Weight 100, kg, Q12H, Start date: 12/24/16 21:00:00 IT PROGRAM MANAGER, Duration: 30 day, Stop date: 01/23/17 9:00:00 CSTNotes: (Same as: BD Posiflush) Docusate 100 mg, 1 cap, No Longer [facility] Route: PO, Drug Active 2016 Medical form: CAP, Center Q12H, Dosing Weight 100, kg, Start date: 12/24/16 21:00:00 IT PROGRAM MANAGER, Duration: 30 day, Stop date: 01/23/17 9:00:00 CSTNotes: (Same as: Colace) (Do Not Crush) atorvastatin 40 mg, 1 tab, No Longer [facility] Route: PO, Drug Active 2016 Medical form: TAB, Center Bedtime, Dosing Weight 100, kg, Start date: 12/24/16 21:00:00 IT PROGRAM MANAGER, Stop date: 01/22/17 21:00:00 CSTNotes: (Same as: Lipitor) pneumococcal 0.5 mL, Route: No Longer [place] 13-valent vaccine IM, Drug Form: Active 2017 Medical INJ, Daily, Center Start date: 12/24/16 18:00:00 IT PROGRAM MANAGER, Duration: 1 doses or times, Stop date: 12/24/16 18:00:00 CSTNotes: (Same as: Prevnar 13) sennosides, FPC 8.6 mg, 1 tab, No Longer [facility] Route: PO, Drug Active 2016 Medical Form: TAB, Center Dosing Weight 100, kg, BID, Start date: 12/24/16 17:00:00 IT PROGRAM MANAGER, Duration: 30 day, Stop date: 01/23/17 9:00:00 CSTNotes: (Same as: Enocot) heparin sodium, 5,000 unit, 1 No Longer [place] porcine 2500 UNT/ML mL, Route: Active 2016 Medical Injectable Solution SUB-Q, Drug Center form: INJ, Q8H, Dosing Weight 100, kg, Start date: 12/24/16 16:00:00 IT PROGRAM MANAGER, Duration: 30 day, Stop date: 01/23/17 8:00:00 CSTNotes: porcine heparin Dextrose 50% 25 gm, 50 mL, No Longer [place] Syringe Route: IVP, Active 2016 Medical Drug Form: INJ, Center Dosing Weight 100, kg, PRN, PRN Blood Glucose Results, Start date: 12/24/16 15:18:00 IT PROGRAM MANAGER, Duration: 30 day, Stop date: 01/23/17 15:17:00 IT PROGRAM MANAGER Glucagon 1 mg, Route: No Longer [place] IM, Drug form: Active 2016 Medical PDR/INJ, PRN, Center Dosing Weight 100, kg, PRN Blood Glucose Results, Start date: 12/24/16 15:18:00 IT PROGRAM MANAGER, Duration: 30 day, Stop date: 01/23/17 15:17:00 IT PROGRAM MANAGER sodium phosphate + 30 mmol, 10 mL, No Longer [place] sodium chloride Route: IVPB, Active 2017 Medical 0.9% INJ 250 mL PRN, Dosing Center Weight 100, kg, PRN Abnormal Lab Result, Start date: 12/24/16 15:18:00 IT PROGRAM MANAGER, Duration: 30 day, Stop date: 01/23/17 15:17:00 IT PROGRAM MANAGER, FOR ICU USE ONLY potassium chloride 10 mEq, 50 mL, No Longer [place] Route: IVPB, Active 2016 Medical Drug form: INJ, Center PRN, Dosing Weight 100, kg, PRN Abnormal Lab Result, Via peripheral line, Start date: 12/24/16 15:18:00 IT PROGRAM MANAGER, Duration: 30 day, Stop date: 01/23/17 15:17:00 IT PROGRAM MANAGER, FOR ICU USE ONLYNotes: (Same as: KCL) Infuse over 2 hours. Calcium Gluconate 1 gm, 10 mL, No Longer [place] Route: IVPB, Active 2016 Medical PRN, Dosing Center Weight 100, kg, PRN Abnormal Lab Result, Start date: 12/24/16 15:18:00 IT PROGRAM MANAGER, Duration: 30 day, Stop date: 01/23/17 15:17:00 IT PROGRAM MANAGER, FOR ICU USE ONLYNotes: WASTE: F/P - Sink; E - Municipal Trash Bin Calcium Carbonate 500 mg, 1 tab, No Longer [place] 500 MG Chewable Route: PO, Drug Active 2016 Medical Tablet form: CHEWTAB, Center PRN, Dosing Weight 100, kg, PRN Abnormal Lab Result, FOR ICU USE ONLY, Start date: 12/24/16 15:18:00 IT PROGRAM MANAGER, Duration: 30 day, Stop date: 01/23/17 15:17:00 CSTNotes: (Same As: Tums) Calcium Carbonate 500 hd=798 mg elemental calcium Dose= mg calcium carbonate ( mg elemental calcium) Magnesium Oxide 800 mg, 2 tab, No Longer [place] Route: PO, Drug Active 2016 Medical form: TAB, PRN, Center Dosing Weight 100, kg, PRN Abnormal Lab Result, FOR ICU USE ONLY, Start date: 12/24/16 15:18:00 IT PROGRAM MANAGER, Duration: 30 day, Stop date: 01/23/17 15:17:00 CSTNotes: (Same as: Mag-Ox 400) Magnesium oxide [id number] elemental magnesium Dose=____mg magnesium oxide (___mg elemental magnesium) potassium phosphate 30 mmol, 10 mL, No Longer + sodium chloride Route: IVPB, Active 2017 Medical 0.9% INJ 250 mL PRN, Dosing Center Weight 100, kg, PRN Abnormal Lab Result, Start date: 12/24/16 15:18:00 IT PROGRAM MANAGER, Duration: 30 day, Stop date: 01/23/17 15:17:00 IT PROGRAM MANAGER, FOR ICU USE ONLYNotes: (Same as: K Phosphate.) 1 mMol phoshate has 1.47 mEq potassium Infuse over 4 hours potassium 2 pkt, Route: No Longer [place] phosphate-sodium PO, Drug Form: Active 2017 Medical phosphate 250 PDR/REC, Dosing Center mg-280 mg-160 mg Weight 100, kg, oral powder for PRN, PRN reconstitution Abnormal Lab Result, FOR ICU USE ONLY, Start date: 12/24/16 15:18:00 IT PROGRAM MANAGER, Duration: 30 day, Stop date: 01/23/17 15:17:00 CSTNotes: (Same as: Phos-NaK) Each 1.5 gm pkt has 250mg phosphorous. Mix w/2.5oz water and stir. Magnesium Sulfate 2 gm, 50 mL, No Longer [place] Route: IVPB, Active 2016 Medical Drug form: INJ, Center PRN, Dosing Weight 100, kg, PRN Abnormal Lab Result, Start date: 12/24/16 15:18:00 IT PROGRAM MANAGER, Duration: 30 day, Stop date: 01/23/17 15:17:00 IT PROGRAM MANAGER, FOR ICU USE ONLYNotes: WASTE: F/P - Sink; E - Municipal Trash Bin sotalol 80 mg oral 80 mg=1 tab, No Longer [place] tablet PO, Daily, 0 Active 2016 Medical Refill(s) [place] gabapentin 400 MG 400 mg=1 cap, Active [...] Total Volume: 1,000, Start date: 12/24/16 14:56:00 IT PROGRAM MANAGER, Duration: 30 day, Stop date: 01/23/17 14:55:00 IT PROGRAM MANAGER Flumazenil 0.2 mg, Route: Inactive [facility] IVP, PRN, 2016 Medical Dosing Weight Center 100, kg, PRN Benzodiazepine Reversal, Initial dose, Start date: 12/24/16 12:56:00 IT PROGRAM MANAGER, Duration: 30 day, Stop date: 01/23/17 12:55:00 IT PROGRAM MANAGER Naloxone 0.4 mg, Route: Inactive [facility] IVP, Q2MIN, 2016 Medical Dosing Weight Center 100, kg, PRN Narcotic Reversal, Start date: 12/24/16 12:56:00 IT PROGRAM MANAGER, Duration: 8 doses or times, Stop date: Limited # of times Ondansetron 4 mg, Route: Inactive [facility] IVP, ONCE, 2016 Medical Dosing Weight Center 100, kg, PRN Nausea & Vomiting, Start date: 12/24/16 12:56:00 IT PROGRAM MANAGER Hydromorphone 0.5 mg, Route: Inactive [facility] IVP, Q5Min, 2016 Medical Dosing Weight Center 100, kg, PRN Pain Score 7-10, Start date: 12/24/16 12:56:00 IT PROGRAM MANAGER, Duration: 4 doses or times, Stop date: Limited # of times Hydralazine 10 mg, Route: Inactive [facility] IVP, Q20Min, 2016 Medical Dosing Weight Center 100, kg, PRN Elevated BP, Start date: 12/24/16 12:56:00 IT PROGRAM MANAGER, Duration: 2 doses or times, Stop date: Limited # of times Labetalol 10 mg, Route: Inactive [place] IVP, Q5Min, 2016 Medical Dosing Weight Center 100, kg, PRN Elevated BP, Start date: 12/24/16 12:56:00 IT PROGRAM MANAGER, Duration: 5 doses or times, Stop date: Limited # of times Saline Flush 0.9% 10 ml, Route: No Longer [facility] IVP, Drug Form: Active 2017 Medical INJ, Dosing Center Weight 100, kg, PRN, PRN Line Flush, Start date: 12/24/16 12:28:00 IT PROGRAM MANAGER, Duration: 30 day, Stop date: 01/23/17 12:27:00 CSTNotes: (Same as: BD Posiflush) Sodium Chloride 1,000 mL, Rate: No Longer [facility] 0.154 MEQ/ML 75 ml/hr, Active 2016 Medical Injectable Solution Infuse over: Center 13.3 hr, Route: IV, Dosing Weight 100 kg, Total Volume: 1,000, Start date: 12/24/16 12:28:00 IT PROGRAM MANAGER, Duration: 30 day, Stop date: 01/23/17 12:27:00 IT PROGRAM MANAGER Omnipaque 300 150 ml, Route: Inactive [facility] INTRAARTERIAL, 2017 Medical Dosing Weight Center 100, kg, ONCE, Start date: 12/24/16 11:54:00 IT PROGRAM MANAGER, Stop date: 12/24/16 11:54:00 IT PROGRAM MANAGER iodixanol 100 mL, Route: Inactive [facility] IVP, Drug Form: 2017 Medical SOLN, Dosing Center Weight 100, kg, ONCALL, STAT, Start date: 12/24/16 11:29:00 IT PROGRAM MANAGER, Duration: 1 doses or times, Dose=2.2ml/kg, Max dzqf=234px -- "To be infused by Radiology Staff ONLY" Saline Flush 0.9% 10 mL, Route: No Longer [facility] IVP, Drug Form: Active 2016 Medical INJ, kg, PRN, Center PRN Line Flush, Start date: 12/24/16 11:08:00 IT PROGRAM MANAGER, Duration: 30 day, Stop date: 01/23/17 11:07:00 CSTNotes: (Same as: BD Posiflush) Allergies, Adverse Reactions, Alerts Substance Category Reaction Severity Reaction Status Date Comments Source type Reported Immunizations Immunization Date Given Site Status Last Comments Source Updated pneumococcal 12/25/2016 Left completed Vishal [facility] 13-valent vaccine deltoid [facility] Results Order Name Results Value Reference Date Interpretation Comments Source Range CHEM PANEL Phosphorus 2.5 mg/dL 2.5 - 4.5 12/26 [facility] /[address] [place] [address] CHEM PANEL eGFR 58 12/26 Result Comment: The eGFR is calculated using the CKD-EPI formula. In most young, healthy individuals the eGFR will be >90 mL/ min/1.73m2. The eGFR declines with age. An eGFR of 60-89 may be normal in [facility] mL/min/1.7 some populations, particularly the elderly, for whom the CKD-EPI formula has not been extensively validated. Use of the eGFR is not recommended in the following populations: [address] Individuals with unstable creatinine concentrations, including [...] BUN 17 mg/dL 7 - 22 12/[address] CHEM PANEL Glucose Lvl 95 mg/dL 70 - 99 12/[address] CHEM PANEL Potassium Lvl 3.7 meq/L 3.5 - 5.1 12/[address] CHEM PANEL Sodium Lvl 142 meq/L 135 - 145 12/[address] CHEM PANEL Creatinine 1.17 mg/dL 0.50 - 12/26 [facility] Lvl 1.40 [facility] CHEM PANEL CO2 27 meq/L 24 - 32 12/[address] CHEM PANEL Chloride Lvl 108 meq/L 95 - 109 12/[address] CHEM PANEL Calcium Lvl 8.4 mg/dL 8.5 - 10.5 12/[address] CHEM PANEL AGAP 10.7 meq/L 10.0 - 12/26 [facility] 20.0 [facility] CHEM PANEL Magnesium Lvl 2.2 mg/dL 1.8 - 2.4 12/[address] HEMATOLOGY Lymphocytes # 1.1 K/CMM 1.0 - 5.5 12/[address] HEMATOLOGY Segs-Bands # 6.9 K/CMM 1.5 - 8.1 12/[address] HEMATOLOGY Eosinophils # 0.2 K/CMM 0.0 - 0.5 12/[address] HEMATOLOGY Basophils # 0.1 K/CMM 0.0 - 0.2 12/[address] HEMATOLOGY Monocytes # 0.6 K/CMM 0.0 - 0.8 12/[address] [facility] HEMATOLOGY Basophils 0.7 % 0.0 - 1.0 12/26 [facility] HEMATOLOGY Segs 77.6 % 45.0 - 12/26 75.0 [facility] HEMATOLOGY Monocytes 7.1 % 2.0 - 12.0 12/26 [facility] HEMATOLOGY Eosinophils 1.9 % 0.0 - 4.0 12/26 [facility] HEMATOLOGY Lymphocytes 12.7 % 20.0 - 12/26 40.0 [facility] HEMATOLOGY MPV 9.1 fL 7.4 - 10.4 12/26 [facility] HEMATOLOGY Platelet 108 K/CMM 133 - 450 12/26 [facility] HEMATOLOGY RDW 13.8 % 11.5 - 12/26 [facility] 14.5 [facility] HEMATOLOGY WBC 8.9 K/CMM 3.7 - 10.4 12/26 [facility] HEMATOLOGY RBC 4.84 M/CMM 4.70 - 12/26 [facility] 6.10 [facility] HEMATOLOGY Hct 43.3 % 42.0 - 12/26 [facility] 54.0 [facility] HEMATOLOGY MCH 30.0 pg 27.0 - 12/26 [facility] 31.0 [facility] HEMATOLOGY Hgb 14.5 g/dL 14.0 - 12/26 [facility] 18.0 [facility] HEMATOLOGY MCHC 33.6 g/dL 32.0 - 12/26 [facility] 36.0 [facility] HEMATOLOGY MCV 89.4 fL 80.0 - 12/26 [facility] 94.0 [facility] PARATHYROID Ca Norm WB 1.15 1. - 12/26 [facility] PROFILE mMol/L 1. [facility] PARATHYROID Ca Ion WB 1.19 1.05 - 12/26 [facility] PROFILE mMol/L 1. [facility] URINE AND UA Mucus Few /LPF None Seen 12/26 [facility] STOOL /LPF /2016 [facility] URINE AND UA Sq Epi None Seen 12/26 [facility] STOOL /2016 [facility] URINE AND UA <=1.0 0.1 - 1.0 12/26 [facility] STOOL Urobilinogen mg/dL /2016 [facility] URINE AND UA Bacteria Occasional None Seen 12/26 [facility] STOOL /HPF /HPF /2016 [facility] URINE AND UA RBC 1 /HPF 0 - 2 12/26 [facility] URINE AND UA Nitrite Negative Negative 12/26 [facility] (12/25/16 6:01 PM) [place] URINE AND UA WBC 9 /HPF 0 - 5 12/26 [facility] URINE AND UA Leuk Est Large Negative 12/26 [facility] *ABN* [place] (12/25/16 6:01 PM) URINE AND UA Blood Negative Negative 12/26 [facility] (12/25/16 6:01 PM) [place] URINE AND UA Bili Negative Negative 12/26 [facility] *NA* [place] (12/25/16 6:01 PM) URINE AND UA Ketones Negative Negative 12/26 [facility] mg/dL mg/dL [facility] URINE AND UA pH 6.0 5.0 - 8.0 12/26 [facility] URINE AND UA Glucose Negative Negative 12/26 [facility] mg/dL mg/dL [facility] URINE AND UA Protein Negative Negative 12/26 [facility] mg/dL mg/dL [facility] URINE AND UA Turbidity Clear Clear 12/26 [facility] (12/25/16 6:01 PM) [place] URINE AND UA Color Yellow Yellow 12/26 [facility] *NA* [place] (12/25/16 6:01 PM) URINE AND UA Spec Grav 1.012 <=1.030 12/26 [facility] BACTERIAL - MRSA by PCR Negative 12/25 [facility] (12/25/16 1:53 PM) [place] CHEM PANEL eGFR 66 12/25 Result Comment: The eGFR is calculated using the CKD-EPI formula. In most young, healthy individuals the eGFR will be >90 mL/ min/1.73m2. The eGFR declines with age. An eGFR of 60-89 may be normal in [facility] mL/min/1. some populations, particularly the elderly, for whom the CKD-EPI formula has not been extensively validated. Use of the eGFR is not recommended in the following populations: [address] Individuals with unstable creatinine concentrations, including [...] Lvl 8.6 mg/dL 8.5 - 10.5 12/25 [facility] CHEM PANEL AGAP 13.0 meq/L 10.0 - 12/25 [facility] 20.0 [facility] CHEM PANEL Potassium Lvl 4.0 meq/L 3.5 - 5.1 12/[address] CHEM PANEL Chloride Lvl 109 meq/L 95 - 109 12/25 [employer]2016 [facility] CHEM PANEL CO2 24 meq/L 24 - 32 12/[address] CHEM PANEL Creatinine 1.05 mg/dL 0.50 - 12/25 [facility] Lvl 1.40 [facility] CHEM PANEL BUN 14 mg/dL 7 - 12/[address] CHEM PANEL Sodium Lvl 142 meq/L 135 - 145 12/[address] CHEM PANEL Glucose Lvl 107 mg/dL 70 - 99 12/[address] CHEM PANEL Phosphorus 2.4 mg/dL 2.5 - 4.5 12/[address] CHEM PANEL Globulin 3.0 g/dL 2.7 - 4.2 12/[address] CHEM PANEL A/G Ratio 1.0 0.7 - 1.6 12/[address] CHEM PANEL AGAP 10.4 meq/L 10.0 - 12/25 [facility] .0 [facility] CHEM PANEL B/C Ratio 20 6 - 25 12/[address] CHEM PANEL eGFR 62 12/25 Result Comment: The eGFR is calculated using the CKD-EPI formula. In most young, healthy individuals the eGFR will be >90 mL/ min/1.73m2. The eGFR declines with age. An eGFR of 60-89 may be normal in [facility] mL/min/1. some populations, particularly the elderly, for whom the CKD-EPI formula has not been extensively validated. Use of the eGFR is not recommended in the following populations: [address] Individuals with unstable creatinine concentrations, including [...] CO2 24 meq/L 24 - 32 12/[address] CHEM PANEL Total Protein 5.9 g/dL 6.4 - 8.4 12/[address] CHEM PANEL Calcium Lvl 7.9 mg/dL 8.5 - 10.5 12/[address] CHEM PANEL AST 12 unit/L 0 - 37 12/[address] CHEM PANEL ALT 15 unit/L 0 - 65 12/[address] CHEM PANEL Alk Phos 51 unit/L 39 - 136 12/[address] CHEM PANEL Albumin Lvl 2.9 g/dL 3.5 - 5.0 12/[address] CHEM PANEL Bili Total 0.8 mg/dL 0.2 - 1.3 12/[address] CHEM PANEL Glucose Lvl 117 mg/dL 70 - 99 12/[address] CHEM PANEL BUN 22 mg/dL 7 - 22 12/[address] CHEM PANEL Creatinine 1.11 mg/dL 0.50 - 12/25 [facility] Lvl 1.40 [facility] CHEM PANEL Sodium Lvl 138 meq/L 135 - 145 12/[address] CHEM PANEL Potassium Lvl 3.4 meq/L 3.5 - 5.1 12/[address] CHEM PANEL Chloride Lvl 107 meq/L 95 - 109 12/[address] CHEM PANEL Phosphorus 2.1 mg/dL 2.5 - 4.5 12/[address] CHEM PANEL Magnesium Lvl 2.2 mg/dL 1.8 - 2.4 12/[address] HEMATOLOGY Basophils # 0.1 K/CMM 0.0 - 0.2 12/[address] HEMATOLOGY Eosinophils # 0.2 K/CMM 0.0 - 0.5 12/[address] HEMATOLOGY Monocytes # 0.7 K/CMM 0.0 - 0.8 12/[address] HEMATOLOGY Lymphocytes # 1.5 K/CMM 1.0 - 5.5 12/25 [facility] HEMATOLOGY Eosinophils 2.4 % 0.0 - 4.0 12/25 [facility] HEMATOLOGY Monocytes 6.8 % 2.0 - 12.0 12/25 [facility] HEMATOLOGY Segs-Bands # 7.7 K/CMM 1.5 - 8.1 12/25 [facility] HEMATOLOGY Basophils 1.1 % 0.0 - 1.0 12/25 [facility] HEMATOLOGY Segs 74.9 % 45.0 - 12/25 [facility] 75.0 [facility] HEMATOLOGY Lymphocytes 14.8 % 20.0 - 12/25 [facility] 40.0 [facility] HEMATOLOGY MCHC 34.9 g/dL 32.0 - 12/25 36.0 [facility] HEMATOLOGY MCH 30.8 pg 27.0 - 12/25 [facility] 31.0 [facility] HEMATOLOGY Platelet 128 K/CMM 133 - 450 12/25 [facility] HEMATOLOGY RDW 14.1 % 11.5 - 12/25 14.5 [facility] HEMATOLOGY RBC 4.74 M/CMM 4.70 - 12/25 [place] 6.10 [facility] HEMATOLOGY WBC 10.3 K/CMM 3.7 - 10.4 12/25 [facility] HEMATOLOGY MPV 9.3 fL 7.4 - 10.4 12/25 [facility] HEMATOLOGY Hgb 14.6 g/dL 14.0 - 12/25 18.0 [facility] HEMATOLOGY MCV 88.3 fL 80.0 - 12/25 [facility] 94.0 [facility] HEMATOLOGY Hct 41.8 % 42.0 - 12/25 [place] 54.0 [facility] PARATHYROID Ca Ion WB 1.16 . - 12/25 [facility] PROFILE mMol/L . [facility] PARATHYROID Ca Norm WB 1.17 . - 12/25 [facility] PROFILE mMol/L . [facility] Brain wo Brain wo EXAM: MRI BRAIN WITHOUT CONTRAST 12/24 - [facility] contrast contrast MRI /2016 - [facility] DATE: 12/24/2016 12:28 PM IT PROGRAM MANAGER Read by: Marlon Fay MD Dictated Date/time: [...] Direct 0.2 mg/dL 0.0 - 0.3 12/[address] CHEM PANEL Alk Phos 51 unit/L 39 - 136 12/[address] CHEM PANEL Bili Total 1.0 mg/dL 0.2 - 1.3 12/[address] CHEM PANEL ALT 12 unit/L 0 - 65 12/[address] CHEM PANEL AST 13 unit/L 0 - 37 12/[address] CHEM PANEL Albumin Lvl 3.1 g/dL 3.5 - 5.0 12/[address] CHEM PANEL Total Protein 6.2 g/dL 6.4 - 8.4 12/24 [facility] CHEM PANEL Globulin 3.1 g/dL 2.7 - 4.2 12/24 [facility] CHEM PANEL A/G Ratio 1.0 0.7 - 1.6 12/24 [facility] CHEM PANEL Bili Indirect 0.8 mg/dL 0.0 - 1.0 12/24 [facility] LIPIDS CHD Risk 2.65 4.00 - 12/24 [place] 7.30 [facility] LIPIDS HDL 52 mg/dL >=61 mg/dL 12/24 [facility] LIPIDS Chol 138 mg/dL <=199 12/24 [facility] mg/dL [facility] LIPIDS VLDL 12 12/24 [facility] [facility] LIPIDS Trig 59 mg/dL <=149 12/24 [facility] mg/dL [facility] LIPIDS LDL 74 mg/dL <=99 mg/dL 12/24 [facility] (Calculated) [facility] SPECIAL Hgb A1C 5.1 % <=5.6 % 12/24 [facility] CHEMISTRY [facility] BLOOD BANK ABO/Rh A POS 12/24 [facility] RESULTS [facility] BLOOD BANK Antibody Scrn Negative 12/24 [facility] RESULTS [facility] (12/24/16 11:20 AM) Center CHEM PANEL POC 1.1 mg/dL 0.5 - 1.4 12/24 [facility] Creatinine [facility] CARDIAC Troponin-I null 0.00 - 12/24 [facility] ENZYMES 0.40 [facility] CARDIAC CK MB null 0.5 - 3.6 12/24 [facility] ENZYMES [facility] CARDIAC Total CK 36 unit/L 12 - 191 12/24 [facility] ENZYMES [facility] CARDIAC CK-MB INDEX null 0.0 - 2.5 12/24 [facility] ENZYMES [facility] HEMATOLOGY PT 14.9 s 12.0 - 12/24 [place] 14.7 [facility] HEMATOLOGY INR 1.15 0.85 - 12/24 [place] 1.17 [facility] HEMATOLOGY PTT 32.1 s 22.9 - 12/24 [place] 35.8 [facility] HEMATOLOGY MCV 89.5 fL 80.0 - 12/24 [place] 94.0 [facility] HEMATOLOGY RDW 14.1 % 11.5 - 12/24 [place] 14.5 [facility] HEMATOLOGY MCHC 33.6 g/dL 32.0 - 12/24 36.0 [facility] HEMATOLOGY MCH 30.1 pg 27.0 - 12/24 31.0 [facility] HEMATOLOGY MPV 8.6 fL 7.4 - 10.4 12/24 2016 [facility] HEMATOLOGY Platelet 127 K/CMM 133 - 450 12/24 2016 [facility] HEMATOLOGY Hct 41.7 % 42.0 - 12/24 54.0 [facility] HEMATOLOGY Hgb 14.0 g/dL 14.0 - 12/24 [facility] 18.0 [facility] HEMATOLOGY RBC 4.65 M/CMM 4.70 - 12/24 [facility] 6.10 [facility] HEMATOLOGY WBC 9.3 K/CMM 3.7 - 10.4 12/24 [facility] HEMATOLOGY Monocytes 5.3 % 2.0 - 12.0 12/[address] HEMATOLOGY Eosinophils 2.8 % 0.0 - 4.0 12/24 [facility] HEMATOLOGY Basophils 0.8 % 0.0 - 1.0 12/[address] HEMATOLOGY Lymphocytes 11.1 % 20.0 - 12/24 [facility] 40.0 [facility] HEMATOLOGY Eosinophils # 0.3 K/CMM 0.0 - 0.5 12/24 2016 [facility] HEMATOLOGY Basophils # 0.1 K/CMM 0.0 - 0.2 12/[address] HEMATOLOGY Segs-Bands # 7.4 K/CMM 1.5 - 8.1 12/[address] HEMATOLOGY Lymphocytes # 1.0 K/CMM 1.0 - 5.5 12/[address] HEMATOLOGY Monocytes # 0.5 K/CMM 0.0 - 0.8 12/[address] HEMATOLOGY Segs 80.0 % 45.0 - 12/24 [facility] 75.0 [facility] Chest 1view Chest 1view EXAM: XR CHEST 1 VIEW 12/24 - [facility] DX DX - [facility] DATE: 12/24/2016 11:08 AM IT PROGRAM MANAGER Read by: Willis Cardoso MD Dictated Date/time: [...] Angiogram Angiogram EMERGENT CEREBRAL REVASCULARIZATION 12/24 - [facility] /2016 - Medical artery artery This report was dictated by a Application Lead/ Fellow. I have personally reviewed the images as Center bilateral bilateral VR well as the Resident's interpretation and agree with the findings. VR Read by: Maury Griffin MD Resident: Maury Griffin MD Dictated Date/time: 12/24/16 12:36 DATE: 12/24/2016 11:31 AM IT PROGRAM MANAGER Electronically Signed by: Alistair Carpio MD 12/25/16 [...] administered by the anesthesia team with the film crew member present. The patient's systolic arterial blood pressure was kept between 140- 180 mmHg. The groin was prepped and draped in the usual sterile fashion. The Left common femoral artery was accessed by using singlewall micropuncture technique and an 9 British Cor dis sheath was placed. Under fluoroscopic and roadmap guidance, A 5 British Long Vert guide catheter coaxially advanced with a 0.035 " Terumo Glidewire telescoped within an 8 British Balloon guide ca theter to select the [...] segment the diagnostic catheter was removed. A Profind microcatheter was coaxially advanced over a 0.014 [...] Stroke EXAM: CT BRAIN WITHOUT CONTRAST 12/24 [facility] Stroke wo wo /2016 - Medical contrast CT CT This report was dictated by a Application Lead/ Fellow. I have personally reviewed the images as Center well as the Resident's interpretation and agree with the findings. DATE: 12/24/2016 11:05 AM IT PROGRAM MANAGER Read by: Dana Ortega MD Resident: Dana [...] EXAM: CT ANGIOGRAM OF THE BRAIN 12/24 [facility] Stroke Stroke /2017 - Medical perfusion perfusion CTA EXAM: CT ANGIOGRAM OF THE NECK Center CTA EXAM: CT PERFUSION OF THE BRAIN Read by: Eugenio Mckenna MD Dictated Date/time: 12/24/16 13:57 Electronically Signed by: Eugenio Mckenna MD 12/24/16 14:26 FINAL REPORT DATE: 12/24/2016 11:11 AM IT PROGRAM MANAGER INDICATION: Acute cognitive change COMPARISON: Contemporaneous CT [...] Comments Source Systolic (mm Hg) 123 12/26/2016 [facility] Diastolic (mm Hg) 57 12/26/2016 [facility] Respitory Rate 20 12/26/2016 [facility] Temperature Oral (F) 100.4 F 12/26/2016 [facility] Systolic (mm Hg) 116 12/26/2016 [facility] Diastolic (mm Hg) 63 12/26/2016 [facility] Respitory Rate 20 12/26/2016 [facility] Systolic (mm Hg) 127 12/26/2016 [facility] Diastolic (mm Hg) 67 12/26/2016 [facility] Respitory Rate 20 12/26/2016 [facility] Temperature Oral (F) 99.5 F 12/26/2016 [facility] Temperature Oral (F) 99.9 F 12/26/2016 [facility] Heart Rate 55 12/25/2016 [facility] Weight 100 12/24/2016 [facility] Height 190.5 cm 12/24/2016 [facility] BMI Calculated 27.56 12/24/2016 [facility] Heart Rate 75 12/24/2016 [facility] Height 182.88 cm 12/24/2016 [facility] BMI Calculated 29.9 12/24/2016 [facility] Weight 100 12/24/2016 [facility] Heart Rate 78 12/24/2016 [facility] Encounters Location Location Encounter Encounter Reason Attending ADM DC Status Source Details Type Number For Provider Date Date [facility] [id number] [facility] 12/24 12/26 [facility] Jair Rico [facility] Procedures Procedure Code Date Perfomer Comments Source Selective catheter 37111 12/24/2016 [facility] placement, common Medical carotid or innominate Center artery, unilateral, any approach, with angiography of the ipsilateral extracranial carotid circulation and all associated radiological supervision and interpretation, includes angiography of the c Selective catheter 54382 12/24/2016 [facility] placement, internal Medical carotid artery, Center unilateral, with angiography of the ipsilateral intracranial carotid circulation and all associated radiological supervision and interpretation, includes angiography of the extracranial carotid and ce Primary percutaneous 10889 12/24/2016 [facility] thrombectomy, noncoronary, non-intracranial, arterial or arterial bypass graft, including fluoroscopic guidance and intraprocedural pharmacological thrombolytic injection(s); initial vessel Inguinal herniotomy [id number] [facility] Manipulation of the [id number] [facility]
[2019-01-31] MEDS: Meropenem 1,000 MG in NA CHLORIDE 0.9% 100 ML IV SCH ×2 (14:15→22:02)
--- NOTE | 2019-01-31 16:59 | CON ---
History Of Present Illness: He is a pleasant 83-year-old gentleman who had history of left flank pain. He was diagnosed with a 4.5 mm stone at the level of the transverse process of L3 on the left. He also had a CT scan on 2018 that showed tiny left renal calculi in addition to a 4.5 mm proximal stone , Hounsfield units 1500 cc. The patient was preop for ESWL but urine culture grew extended spectrum beta-lactamases Escherichia coli, sensitive to nitrofurantoin, cefoxitin, cefotetan, Timentin, tobramycin, meropenem, amikacin. I spoke to Dr. Salazar. He will admit the patient overnight for IV meropenem and then we will be able to do a cysto stent placement and ESWL the next day once the antibiotic is on the board. Past Medical History: Hypertension, nerve problems in his legs and legs go to sleep frequently, has neuropathy, history of strokes. Past Surgical History: Back surgery in 1968, left inguinal hernia repair. Family History: Noncontributory. Immunizations: Up to date. Social History: Tobacco; no smoking. Alcohol; drinks about 8 beers per year. Allergies: NO KNOWN DRUG ALLERGIES. Current Medications: Gabapentin, sotalol, Benicar, aspirin, Eliquis. Review of Systems: A 10-point review of system otherwise negative. Physical Examination: Vital Signs: Afebrile, stable. HEENT: Atraumatic and normocephalic. General: Patient was well nourished, well hydrated, in no acute distress. Neck: Supple. No JVD. Cardiovascular: Normal S1, S2. Abdomen: Soft, nontender. : Testicles descended. Phallus normal. Digital rectal exam; 30-40 g benign prostate, also history of right inguinal hernia. Labs: Urine culture, extended spectrum beta-lactamases as mentioned above. Sensitivities as mentioned above. Electrolytes; sodium 140, potassium 4.04, chloride 106, bicarb 30, glucose 111, BUN 27, creatinine 1.96. GFR estimated to be 33. White count 13.1, H and H is 15 and 46. PT and PTT show PT 17, INR 1.5, PTT 37, and UA was positive. Assessment: Extended spectrum beta-lactamase and kidney stone. Plan: Plan for admission for IV antibiotics, then cysto stent and ESWL with stent while on IV antibiotics. The patient knows all the risks and benefits and wishes to proceed. All the general information, alternative, risks explained. Patient is competent and gave consent voluntarily. LIZ/KEREN Voice ID: [id number] Report ID: [id number] [facility]
--- NOTE | 2019-01-31 17:48 | P.HP ---
Certification for Inpatient Patient admitted to: Observation With expected LOS: <2 Midnights Practitioner: I am a practitioner with admitting privileges, knowledge of patient current condition, hospital course, and medical plan of care. Services: Services provided to patient in accordance with Admission requirements found in Title 42 Section 412.3 of the Code of Federal Regulations Patient History Date of Service: 01/31/19 Reason for admission: RENAL STONE AND ESBL FROM URINE History of Present Illness: . DR. RAY CALLED ME HE HAS GROWN ESBL FROM URINE AND HAS RENAL STONE WITH HYDRONEPHROSIS. HE WANTS TO GIVE IV MERREM AND ADMIT HIM. Allergies No Known Allergies Allergy (Verified 01/31/19 12:07) Home Medications: Amlodipine [Norvasc] 5 mg PO DAILY 01/31/19 Apixaban [Eliquis] 5 mg PO BID 01/31/19 Gabapentin 600 mg PO BEDTIME 01/31/19 Hydrocodone 10/APAP 325 [Addison 10/325] 1 tab PO Q12HP PRN 01/31/19 Sotalol HCl [Sotalol AF] 80 mg PO DAILY 01/31/19 - Past Medical/Surgical History Has patient received pneumonia vaccine in the past: Yes Diabetic: No -: Stroke -: Neuropathy -: Hypertension -: A fib -: Back surgery 2 -: Hernia surgery 3 - Family History Father -: Lung disease Mother -: Other (see notes) Notes: Alzheimer's - Social History Smoking Status: Former smoker Alcohol use: Yes CD- Drugs: No Caffeine use: Yes Place of Residence: Home Review of Systems 10-point ROS is otherwise unremarkable Physical Examination - Vital Signs Temperature: 98.4 F Blood Pressure: 124/69 Pulse: 68 Respirations: 20 Pulse Ox (%): 99 - Physical Exam General: Alert, In no apparent distress HEENT: Atraumatic, PERRLA, Mucous membr. moist/pink, EOMI, Sclerae nonicteric Neck: Supple, 2+ carotid pulse no bruit, No LAD, Without JVD or thyroid abnormality Respiratory: Clear to auscultation bilaterally, Normal air movement Cardiovascular: Regular rate/rhythm, Normal S1 S2 Gastrointestinal: Normal bowel sounds, No tenderness Musculoskeletal: No tenderness Integumentary: No rashes Neurological: Normal gait, Normal speech, Normal strength at 5/5 x4 extr, Normal tone, Normal affect Lymphatics: No axilla or inguinal lymphadenopathy Assessment and Plan - Problems (Diagnosis) (1) UTI due to extended-spectrum beta lactamase (ESBL) producing Escherichia coli Current Visit: Yes Status: Acute Plan: IV MERREM DC PER DR. RAY PICC LINE HOME OR NH ABX. (2) Renal and ureteric calculus Current Visit: Yes Status: Acute Plan: DR RAY. - Advance Directives Does patient have a Living Will: Yes Does patient have a Durable POA for Healthcare: Yes
[2019-01-31] MEDS ORDERED: GABAPENTIN 300 MG CAP PO SCH (23:00)
[2019-02-01] MEDS ORDERED: HYDROCODONE/APAP 10/325 TAB PO PRN (04:27)
[2019-02-01 08:29] LABS: Absolute Lymphocytes (CBC) 0.7 K/uL (0.7-4.9); Absolute Monocytes 0.6 K/uL (0.1-1.3); Absolute Neutrophil 3.1 K/uL (1.8-8.0); Basophils % 0.8 % (0-1.3); Hematocrit 39.9 % (39.6-49.0); Lymphocytes % 15.6 % (15.3-44.8); MPV 8.8 fL (7.6-11.3); Monocytes % 12.8 % (3.3-12.3); RBC Red Blood Cell Count 4.48 M/uL (4.33-5.43)
[2019-02-01 08:48] LABS: Albumin 2.8 g/dL (3.4-5.0); Bilirubin Total 0.9 mg/dL (0.2-1.0); Potassium 3.7 mmol/L (3.5-5.1); Protein, Total 6.5 g/dL (6.4-8.2)
[2019-02-01] MEDS ORDERED: AMLODIPINE 5 MG TAB PO SCH (09:00)
[2019-02-01] MEDS ORDERED: SOTALOL HCL 80 MG TAB PO SCH (09:00)
[2019-02-01] MEDS ORDERED: APIXABAN 5 MG TABLET PO SCH (09:00)
[2019-02-01] MEDS: Meropenem 1,000 MG in NA CHLORIDE 0.9% 100 ML IV SCH ×2 (09:38→17:39)
--- NOTE | 2019-02-01 09:44 | RAD REPORT ---
EXAM DESCRIPTION: CT - Stone Protocol - 02/01/2019 8:53 am CLINICAL HISTORY: Abdominal pain. Left flank pain COMPARISON: January 26, 2019 TECHNIQUE: Computed axial tomography of the abdomen pelvis was obtained without oral or IV contrast. Lack of IV and oral contrast limits evaluation of solid organs, bowel, and vessels. Coronal reformat srinath images were obtained and reviewed. All CT scans are performed using dose optimization technique as appropriate and may include automated exposure control or mA/KV adjustment according to patient size. FINDINGS: No change in moderate left hydronephrosis. No change in a 4.5 millimeter calculus within t he proximal left ureter. Right proteinaceous cyst and bilateral renal cysts unchanged. Small hepatic cysts unchanged The spleen, pancreas and adrenals appear grossly normal The liver, spleen, pancreas and adrenals appear grossly normal There is no evidence of diverticulitis. The appendix appears normal Postsurgical changes right inguinal hernia repair. Small left inguinal hernia containing fat IMPRESSION: Proximal left ureteral calculus resulting in moderate left hydronephrosis without signif icant change from prior exam
--- NOTE | 2019-02-01 10:06 | RAD REPORT ---
EXAM DESCRIPTION: RAD - Chest Single View - 02/01/2019 3:09 am CLINICAL HISTORY: 3 years Male, PICC line placement COMPARISON: None FINDINGS: Placement of right upper extremity PICC terminating in the distal SVC. No focal lung consolidation. Left lung base atelectasis. No pleural effusion. No pneumothorax. Cardiac and mediastinal silhouette is unremarkable. No acute osseous abnormality. IMPRESSION: Appropriately placed right upper extremity PICC. Left lung base atelectasis. Electronically signed by: Blair Wade DO 02/01/2019 3:12 AM [employer]ISH[employer] Due to temporary technical issues with the PACS/Fluency reporting system, reports are being signed by the in house radiologist as a courtesy to ensure prompt reporting. The interpreting radiologist is f ully responsible for the content of the report.
[2019-02-01] MEDS ORDERED: Ringers Lactate 1,000 ML IV ONE (12:29)
[2019-02-01] MEDS ORDERED: GENTAMICIN 100 MG/100 ML BAG 100 ML IV ONE (12:56)
--- NOTE | 2019-02-01 13:06 | RAD REPORT ---
EXAM DESCRIPTION: RAD - Abdomen 1 View (KUB) - 02/01/2019 12:56 pm CLINICAL HISTORY: Abdomen pain. FINDINGS: The bowel gas pattern is unremarkable. 5 millimeter density inferolaterally to the left transverse process of L3. This is equivocal for repr esenting the known ureteral calculus
[2019-02-01] MEDS ORDERED: MIDAZOLAM HCL 2 MG/2 ML INJ ONE (13:36)
[2019-02-01] MEDS ORDERED: PROPOFOL 200 MG/20 ML VIAL IV ONE (13:36)
[2019-02-01] MEDS ORDERED: FENTANYL CITR 100 MCG/2 ML ONE (13:36)
[2019-02-01] MEDS ORDERED: LIDOCAINE 2% MPF 5 ML VIAL ONE (13:36)
[2019-02-01] MEDS ORDERED: Mastisol Adhesive Liq ONE (14:50)
[2019-02-01 15:22] LABS: Urine Appearance CLEAR; Urine Bilirubin NEGATIVE (NEG); Urine Blood 3+ (NEG); Urine Color YELLOW; Urine Glucose NEGATIVE (NEG); Urine Protein TRACE (NEG)
[2019-02-01 17:43] LABS: Urine Bacteria <20 /HPF (NONE SEEN); Urine Culture Reflex Order REFLEXED; Urine RBC >50 /HPF (NONE SEEN)
--- NOTE | 2019-02-01 18:04 | P.DS ---
Admission Date: 01/31/19 Discharge Date: 02/01/19 Disposition: DC HOME/HOME HEALTH CARE Discharge Condition: FAIR Reason for Admission: RENAL STONE AND ESBL FROM URINE - Problems (1) UTI due to extended-spectrum beta lactamase (ESBL) producing Escherichia coli Onset Date: 02/01/19 Current Visit: Yes Status: Acute (2) Renal and ureteric calculus Onset Date: 02/01/19 Current Visit: Yes Status: Acute Brief History of Present Illness: . DR. RAY CALLED ME HE HAS GROWN ESBL FROM URINE AND HAS RENAL STONE WITH HYDRONEPHROSIS. HE WANTS TO GIVE IV MERREM AND ADMIT HIM. MR. WHELAN HADSTENT ON L SIDE BY DR RAY.' HE IS ON MERREM IV FOR RESISTANT BACERIA ESBL. FU IN OFFICE IN 1O DAYS. Vital Signs/Physical Exam: Temp Pulse Resp BP Pulse Ox 97.6 F 66 16 147/76 H 97 02/01/19 15:16 02/01/19 15:16 02/01/19 15:16 02/01/19 15:16 02/01/19 08:00 Laboratory Data at Discharge: WBC 4.5 K/uL (4.3-10.9) D 02/01/19 08:10 Hgb 13.8 g/dL (13.6-17.9) 02/01/19 08:10 Hct 39.9 % (39.6-49.0) 02/01/19 08:10 Plt Count 115 K/uL (152-406) L 02/01/19 08:10 Sodium 141 mmol/L (136-145) 02/01/19 08:10 Potassium 3.7 mmol/L (3.5-5.1) 02/01/19 08:10 BUN 18 mg/dL (7-18) 02/01/19 08:10 Creatinine 1.04 mg/dL (0.55-1.3) 02/01/19 08:10 Glucose 91 mg/dL (74-106) 02/01/19 08:10 Total Bilirubin 0.9 mg/dL (0.2-1.0) 02/01/19 08:10 AST 20 U/L (15-37) 02/01/19 08:10 ALT 19 U/L (12-78) 02/01/19 08:10 Alkaline Phosphatase 51 U/L (45-117) 02/01/19 08:10 Home Medications: Amlodipine [Norvasc] 5 mg PO DAILY 01/31/19 Apixaban [Eliquis] 5 mg PO BID 01/31/19 Gabapentin 600 mg PO BEDTIME 01/31/19 Hydrocodone 10/APAP 325 [[place] 10/325] 1 tab PO Q12HP PRN 01/31/19 Sotalol HCl [Sotalol AF] 80 mg PO DAILY 01/31/19 Diet: Regular
[2019-02-01] MEDS ORDERED: GABAPENTIN 300 MG CAP PO SCH (21:00)
== END 2019-02-01 19:40 | disposition home health service (06) ==
LOC: INTOOBSV 11:20 → 2ND 11:20
PROVIDERS: ADMIT Internal Medicine; ATTEND Internal Medicine
PROC: 0T778DZ Dilation of Left Ureter with Intraluminal Device, Via Natural or Artificial Opening Endoscopic (ICD-10-PCS; 2019-02-01)
PROC: 02HV33Z Insertion of Infusion Device into Superior Vena Cava, Percutaneous Approach (ICD-10-PCS; 2019-02-01)
PROC: 0TF4XZZ Fragmentation in Left Kidney Pelvis, External Approach (ICD-10-PCS; principal; 2019-02-01 13:45)
DX: N39.0 Urinary tract infection, site not specified (principal); B96.20 Unspecified Escherichia coli [E. coli] as the cause of diseases classified elsewhere; Z16.12 Extended spectrum beta lactamase (ESBL) resistance; N20.0 Calculus of kidney; I10 Essential (primary) hypertension; I48.91 Unspecified atrial fibrillation; Z87.891 Personal history of nicotine dependence
CPT/HCPCS: 87088; 85025; 81001; 36415; 80053; 76377; 74176; 74018; 71045; 50590; 52332; 36569; J2704; J2250; J3010; J1580; Q9967; G0379; G0378; 87086

== ENCOUNTER 2019-04-27 20:30 | Emergency (ER) | payer OTHER, MEDICARE ==
[2019-04-27] MEDS ORDERED: CEPHALEXIN 250 MG CAP ONE (21:45)
--- NOTE | 2019-04-27 21:58 | ER ---
Nurse's Notes [facility] Name: Madi Manning Age: 83 yrs Sex: Male : 1935 Arrival Date: 04/27/2019 Time: 20:32 Bed 25 Private MD: Goyo Salazar V Diagnosis: Laceration with foreign body of knee-fb removed (grass) Presentation: 04/27 20:54 Presenting complaint: Patient states: hit left knee on boat while mowing lawn yesterday ls4 around 1400. Transition of care: patient was not received from another setting of care. Complicating Factors: There are no complicating factors for this patient. Onset of symptoms was April 26, 2019 at 14:00. Risk Assessment: Do you want to hurt yourself or someone else? Patient reports no desire to harm self or others. Initial Sepsis Screen: Does the patient meet any 2 criteria? No. Patient's initial sepsis screen is negative. Does the patient have a suspected source of infection? No. Patient's initial sepsis screen is negative. Care prior to arrival: None. 20:54 Method Of Arrival: Ambulatory ls4 20:54 Acuity: JOLANTA 4 ls4 Triage Assessment: 21:02 General: Appears in no apparent distress. Behavior is calm, cooperative. Pain: Denies ls4 pain. Neuro: No deficits noted. Cardiovascular: No deficits noted. Respiratory: No deficits noted. Musculoskeletal: Circulation, motion, and sensation intact. Capillary refill < 3 seconds, Range of motion: intact in all extremities. Injury Description: Laceration sustained to left knee is clean, 7.6 to 20 cm long, not bleeding. Historical: - Allergies: 21:02 No Known Allergies; ls4 - Home Meds: 21:02 Benicar Oral [Active]; Eliquis Oral [Active]; gabapentin Oral [Active]; sotalol Oral ls4 [Active]; - PMHx: 21:02 Atrial Fib; CVA; 12/2015; enlarged prostate; Hypertension; Kidney stones; ls4 - PSHx: 21:02 back sx; prostate sx; Hernia repair; ls4 - Immunization history:: Last tetanus immunization: up to date. - Social history:: Smoking status: Patient/guardian denies using tobacco. - Ebola Screening: : Patient negative for fever greater than or equal to 101.5 degrees Fahrenheit, and additional compatible Ebola Virus Disease symptoms Patient denies exposure to infectious person Patient denies travel to an Ebola-affected area in the 21 days before illness onset No symptoms or risks identified at this time. Screenin:07 Abuse screen: Denies threats or abuse. Denies injuries from another. Nutritional ls4 screening: No deficits noted. Tuberculosis screening: No symptoms or risk factors identified. Fall Risk None identified. Assessment: 21:06 Injury Description: Laceration sustained to left knee is 7.6 to 20 cm long, not ls4 bleeding, was sustained 1 day ago. 22:05 Reassessment: Patient and/or family updated on plan of care and expected duration. Pain ls4 level reassessed. Patient is alert, oriented x 3, equal unlabored respirations, skin warm/dry/pink. Vital Signs: 21:05 BP 104 / 91; Pulse 77; Resp 16; Temp 98.7(O); Pulse Ox 98% on R/A; Pain 0/10; ls4 22:05 BP 109 / 78; Pulse 76; Resp 16; Temp 98.4; Pulse Ox 99% on R/A; Pain 0/10; ls4 ED Course: 20:32 Patient arrived in ED. am2 20:33 Goyo Salazar MD is Private Physician. am2 20:50 Ayla Lambert, JAYASHREE is Primary Nurse. ls4 20:51 [facility] Caldwell [facility]C [facility] snw 20:52 Juve Powell MD is Attending Physician. snw 21:00 Triage completed. ls4 21:05 Arm band placed on right wrist. ls4 21:07 Patient has correct armband on for positive identification. Bed in low position. Call ls4 light in reach. Side rails up X 1. 21:56 Goyo Salazar MD is Referral Physician. snw 21:59 No provider procedures requiring assistance completed. ls4 21:59 Patient did not have IV access during this emergency room visit. intact, bleeding ls4 controlled, No redness/swelling at site. Pressure dressing applied. Dressings: 4X4s X 3; left knee followed by valentina wrap. Irrigation of laceration on left knee irrigated with normal saline Betadine solution Hibiclens solution Patient tolerated well. Administered Medications: 21:29 Drug: Hibiclens 4 % 1 application Route: Topical; Site: affected area; ls4 21:37 Drug: KeFLEX 500 mg Route: PO; ls4 Outcome: 21:57 Discharge ordered by . kathie 22:15 Discharged to home ambulatory, with family. ls4 22:15 Condition: good 22:15 Discharge instructions given to patient, family, Instructed on discharge instructions, follow up and referral plans. medication usage, safety practices, Demonstrated understanding of instructions, follow-up care, medications, Prescriptions given X 1. 22:29 Patient left the ED. ls4 Signatures: Emily Caldwell, IT HELP DESK MANAGER-C IT HELP DESK MANAGER-Csnw Yue Raza Lisa, RN RN ls4
--- NOTE | 2019-04-27 21:58 | EDPHYS ---
Physician Documentation [facility] Name: Madi Manning Age: 83 yrs Sex: Male : 1935 Arrival Date: 04/27/2019 Time: 20:32 Bed 25 Private MD: Goyo Salazar V ED Physician Juve Powell HPI: 04/27 21:16 This 83 yrs old Male presents to ER via Ambulatory with complaints of snw Laceration - Knee. 21:16 The patient presents with a laceration, dirty, irregular, starred. The complaints snw affect the left knee. Context: The problem was sustained outdoors, resulted from a direct blow, trailer hitch, the patient can fully bear weight, the patient is able to ambulate, Problem is a result from a previous injury: No. Onset: The symptoms/episode began/occurred suddenly, yesterday, and improved. Modifying factors: The symptoms are alleviated by nothing. the symptoms are aggravated by nothing. Associated signs and symptoms: Pertinent positives: pt is on Eliquis second to CVA 2 years ago, area has bled quite a bit. + UTD on tetanus. Treatment prior to arrival includes: cleaned . Severity of symptoms: At their worst the symptoms were very mild. The patient has not experienced similar symptoms in the past. It is unknown whether or not the patient has recently seen a physician. grass can still be seen from laceration. Will clean and re-assess. Historical: - Allergies: 21:02 No Known Allergies; ls4 - Home Meds: 21:02 Benicar Oral [Active]; Eliquis Oral [Active]; gabapentin Oral [Active]; sotalol Oral ls4 [Active]; - PMHx: 21:02 Atrial Fib; CVA; 12/2015; enlarged prostate; Hypertension; Kidney stones; ls4 - PSHx: 21:02 back sx; prostate sx; Hernia repair; ls4 - Immunization history:: Last tetanus immunization: up to date. - Social history:: Smoking status: Patient/guardian denies using tobacco. - Ebola Screening: : Patient negative for fever greater than or equal to 101.5 degrees Fahrenheit, and additional compatible Ebola Virus Disease symptoms Patient denies exposure to infectious person Patient denies travel to an Ebola-affected area in the 21 days before illness onset No symptoms or risks identified at this time. ROS: 21:13 Constitutional: Negative for fever, chills, and weight loss, Eyes: Negative for injury, snw pain, redness, and discharge, ENT: Negative for injury, pain, and discharge, Neck: Negative for injury, pain, and swelling, Cardiovascular: Negative for chest pain, palpitations, and edema, Respiratory: Negative for shortness of breath, cough, wheezing, and pleuritic chest pain, Abdomen/GI: Negative for abdominal pain, nausea, vomiting, diarrhea, and constipation, Back: Negative for injury and pain, : Negative for injury, bleeding, discharge, and swelling, MS/Extremity: Negative for injury and deformity, Neuro: Negative for headache, weakness, numbness, tingling, and seizure. 21:13 Skin: Positive for laceration(s), of the left knee, three starred longer lacerated areas with central laceration. Exam: 21:13 Constitutional: This is a well developed, well nourished patient who is awake, alert, snw and in no acute distress. Head/Face: Normocephalic, atraumatic. Eyes: Pupils equal round and reactive to light, extra-ocular motions intact. Lids and lashes normal. Conjunctiva and sclera are non-icteric and not injected. Cornea within normal limits. Periorbital areas with no swelling, redness, or edema. ENT: Nares patent. No nasal discharge, no septal abnormalities noted. Tympanic membranes are normal and external auditory canals are clear. Oropharynx with no redness, swelling, or masses, exudates, or evidence of obstruction, uvula midline. Mucous membranes moist. Neck: Trachea midline, no thyromegaly or masses palpated, and no cervical lymphadenopathy. Supple, full range of motion without nuchal rigidity, or vertebral point tenderness. No Meningismus. Chest/axilla: Normal chest wall appearance and motion. Nontender with no deformity. No lesions are appreciated. Cardiovascular: Regular rate and rhythm with a normal S1 and S2. No gallops, murmurs, or rubs. Normal PMI, no JVD. No pulse deficits. Respiratory: Lungs have equal breath sounds bilaterally, clear to auscultation and percussion. No rales, rhonchi or wheezes noted. No increased work of breathing, no retractions or nasal flaring. Abdomen/GI: Soft, non-tender, with normal bowel sounds. No distension or tympany. No guarding or rebound. No evidence of tenderness throughout. Back: No spinal tenderness. No costovertebral tenderness. Full range of motion. MS/ Extremity: Pulses equal, no cyanosis. Neurovascular intact. Full, normal range of motion. Neuro: Awake and alert, GCS 15, oriented to person, place, time, and situation. Cranial nerves II-XII grossly intact. Motor strength 5/5 in all extremities. Sensory grossly intact. Cerebellar exam normal. Normal gait. Psych: Awake, alert, with orientation to person, place and time. Behavior, mood, and affect are within normal limits. 21:13 Skin: Appearance: normal except for affected area, injury, laceration(s), the wound is approximately 4 cm(s), with a depth of .5 cm(s), of the left knee. Vital Signs: 21:05 BP 104 / 91; Pulse 77; Resp 16; Temp 98.7(O); Pulse Ox 98% on R/A; Pain 0/10; ls4 22:05 BP 109 / 78; Pulse 76; Resp 16; Temp 98.4; Pulse Ox 99% on R/A; Pain 0/10; ls4 MDM: 21:00 Patient medically screened. snw 21:58 Data reviewed: vital signs, nurses notes. Data interpreted: Pulse oximetry: on room air snw is 98 %. Interpretation: normal. Counseling: I had a detailed discussion with the patient and/or guardian regarding: the historical points, exam findings, and any diagnostic results supporting the discharge/admit diagnosis, the need for outpatient follow up, to return to the emergency department if symptoms worsen or persist or if there are any questions or concerns that arise at home. Special discussion: I have referred the patient to see his PCP for further evaluation of high blood pressure. I discussed in detail with the patient the higher chance of wound infection based on his presenting history. Based on the history and exam findings, there is no indication for further emergent testing or inpatient evaluation. I discussed with the patient/guardian the need to see the primary care provider for further evaluation of the symptoms. 04/27 21:19 Order name: Wound Care; Complete Time: 21:27 snw 04/27 21:55 Order name: Wound dressing; Complete Time: 21:57 snw Administered Medications: 21:29 Drug: Hibiclens 4 % 1 application Route: Topical; Site: affected area; ls4 21:37 Drug: KeFLEX 500 mg Route: PO; ls4 Disposition: 23:41 Co-signature as Attending Physician, Juve Powell MD. rn Disposition: 04/27/19 21:57 Discharged to Home. Impression: Laceration with foreign body of knee - fb removed (grass). - Condition is Stable. - Discharge Instructions: Delayed Wound Closure, Wound Infection, Wound Care. - Prescriptions for Keflex 500 mg Oral Capsule - take 1 capsule by ORAL route every 8 hours for 10 days; 30 capsule. - Medication Reconciliation Form, Thank You Letter, Antibiotic Education, Prescription Opioid Use form. - Follow up: Goyo Salazar MD; When: 5 - 6 days; Reason: Recheck today's complaints, Continuance of care, Re-evaluation by your physician. Follow up: Emergency Department; When: As needed; Reason: Worsening of condition. Signatures: Emily Caldwell, EXTRA HAND-C EXTRA HAND-Csnw Juve Powell MD MD rn Ayla Lambert RN RN ls4 Corrections: (The following items were deleted from the chart) 22:29 21:57 04/27/2019 21:57 Discharged to Home. Impression: Laceration with foreign body of ls4 knee - fb removed (grass). Condition is Stable. Forms are Medication Reconciliation Form, Thank You Letter, Antibiotic Education, Prescription Opioid Use. Follow up: Goyo Salazar; When: 5 - 6 days; Reason: Recheck today's complaints, Continuance of care, Re-evaluation by your physician. Follow up: Emergency Department; When: As needed; Reason: Worsening of condition. snw
--- OUTSIDE RECORDS SUMMARY | 2019-04-28 12:38 | XMS REPORT | Continuity of Care Document ---
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/[address] LF Active 12/24/[address] Hyperlipidemia Resolved Problem 12/29/2016 [facility] [place] HTN (<span Resolved Problem 12/29/2016 [facility] ID="[id number]" Medical >Confirmed</span> Center ) CEREBRAL Active [facility] INFARCTION, Medical UNSPECIFIED Center Medications Medication Details Route Status Patient Ordering Order Source Instructions Provider Date Hydrochlorothiazide 1 tab, PO, Inactive 12/26[facility] [place]ac[place] 12.5 MG / Losartan Daily, 0 2016 Medical Potassium 100 MG Refill(s) Center Oral Tablet Eliquis 5 mg, 1 tab, Inactive 12/26[facility] Route: PO, Drug 2017 Medical form: TAB, Center Q12H, Dosing Weight 100, kg, Priority: NOW, Start date: 12/26/16 9:17:00 DIRECTOR OF BILLING, Duration: 30 day, Stop date: 01/25/17 9:00:00 CSTNotes: Same as: Eliquis ciprofloxacin 250 250 mg=1 tab, Active 12/26[facility] [place] mg oral tablet PO, Q12H, X 3 2016 day, # 6 tab, 0 Center Refill(s) Occupational See Active 12/26[facility] Graciela Therapy Instructions, [address] [facility] Evaluate and Treat DX: R MCA ischemic stroke, # 1 appl, 0 Refill(s) Physical Therapy See Active 12/26[facility] [place] [facility]ructions, [facility]x: right MCA stroke, # 1 appl, 0 Refill(s) apixaban 5 MG Oral 5 mg=1 tab, PO, Active 12/26[facility] [place]iel[place] Tablet [Eliquis] BID, # 60 tab, 2017 Medical 3 Refill(s) Center ciprofloxacin 250 250 mg=1 tab, Inactive 12/26[facility] [place] mg oral tablet PO, Q12H, X 10 2016 day, # 20 tab, Center 0 Refill(s) atorvastatin 40 mg 40 mg=1 tab, Active [place] oral tablet PO, Bedtime, # 2017 Medical 30 tab, 3 Center Refill(s) sotalol 80 mg oral 40 mg=0.5 tab, Active [place] tablet PO, Bedtime, # 2017 Medical 30 tab, 3 Center Refill(s) Rocephin 1 gm, Route: Inactive [place] IVPB, Drug 2016 Medical form: PDR/INJ, Center [id number], Dosing Weight 100, kg, Start date: 12/26/16 7:00:00 DIRECTOR OF BILLING, Stop date: 12/28/16 8:00:00 CSTNotes: (Same As: Rocephin). Use with 100 mL NS and infuse over 30 min MEDICATION WASTE Product Size: 1000 mg Product Wasted: ___ mg Sotalol 40 mg, Route: Inactive [place] Hydrochloride 80 MG PO, Q12H, 2016 Medical Oral Tablet Dosing Weight Center 100, kg, Start date: 12/25/16 21:00:00 DIRECTOR OF BILLING, Duration: 30 day, Stop date: 01/24/17 9:00:00 DIRECTOR OF BILLING sotalol 40 mg, 0.5 tab, No Longer [place] Route: PO, Drug Active 2016 Medical form: TAB, Center Bedtime, Start date: 12/25/16 21:00:00 DIRECTOR OF BILLING, Duration: 30 day, Stop date: 01/23/17 21:00:00 CSTNotes: (Same As: Betapace) 40 mg=1/2 x 80 mg TAB pneumococcal 0.5 mL, Route: Inactive [place] 13-valent vaccine IM, Drug Form: 2017 Medical INJ, Daily, Center Start date: 12/25/16 18:00:00 DIRECTOR OF BILLING, Duration: 1 doses or times, Stop date: 12/25/16 18:00:00 CSTNotes: (Same as: Prevnar 13) gabapentin 400 MG 400 mg, 1 cap, No Longer [place] Oral Capsule Route: PO, Drug Active 2016 Medical form: CAP, TID, Center Dosing Weight 100, kg, Start date: 12/25/16 9:00:00 DIRECTOR OF BILLING, Duration: 30 day, Stop date: 01/23/17 17:00:00 CSTNotes: (Same as: Neurontin) Aspirin 325 MG 325 mg, 1 tab, No Longer [place] Enteric Coated Route: PO, Drug Active 2016 Medical Tablet form: ECTAB, Center Daily, Dosing Weight 100, kg, Start date: 12/25/16 9:00:00 DIRECTOR OF BILLING, Duration: 30 day, Stop date: 01/23/17 9:00:00 CSTNotes: (Do Not Crush) Do not crush or chew. Streptococcus 0.5 mL, Route: Inactive [place] pneumoniae serotype IM, Drug Form: 2016 Medical 1 capsular antigen INJ, Daily, Center diphtheria [id number] Start date: protein conjugate 12/25/16 vaccine / 9:00:00 DIRECTOR OF BILLING, Streptococcus Duration: 1 pneumoniae serotype doses or times, 14 capsular antigen Stop date: diphtheria [id number] 12/25/16 protein conjugate 9:00:00 vaccine / CSTNotes: (Same Streptococcus as: Prevnar 13) pneumoniae serotype 18C capsular antigen d gabapentin 400 MG 400 mg, 1 cap, No Longer [place] Oral Capsule Route: PO, Drug Active 2016 Medical form: CAP, Center ONCE, Dosing Weight 100, kg, Start date: 12/24/16 23:47:00 DIRECTOR OF BILLING, Stop date: 12/24/16 23:47:00 CSTNotes: (Same as: Neurontin) Saline Flush 0.9% 10 ml, Route: No Longer [place] IVP, Drug Form: Active 2016 Medical INJ, Dosing Center Weight 100, kg, Q12H, Start date: 12/24/16 21:00:00 DIRECTOR OF BILLING, Duration: 30 day, Stop date: 01/23/17 9:00:00 CSTNotes: (Same as: BD Posiflush) Docusate 100 mg, 1 cap, No Longer [facility] Route: PO, Drug Active 2016 Medical form: CAP, Center Q12H, Dosing Weight 100, kg, Start date: 12/24/16 21:00:00 DIRECTOR OF BILLING, Duration: 30 day, Stop date: 01/23/17 9:00:00 CSTNotes: (Same as: Colace) (Do Not Crush) atorvastatin 40 mg, 1 tab, No Longer [facility] Route: PO, Drug Active 2016 Medical form: TAB, Center Bedtime, Dosing Weight 100, kg, Start date: 12/24/16 21:00:00 DIRECTOR OF BILLING, Stop date: 01/22/17 21:00:00 CSTNotes: (Same as: Lipitor) pneumococcal 0.5 mL, Route: No Longer [place] 13-valent vaccine IM, Drug Form: Active 2017 Medical INJ, Daily, Center Start date: 12/24/16 18:00:00 DIRECTOR OF BILLING, Duration: 1 doses or times, Stop date: 12/24/16 18:00:00 CSTNotes: (Same as: Prevnar 13) sennosides, [facility] 8.6 mg, 1 tab, No Longer [facility] Route: PO, Drug Active 2016 Medical Form: TAB, Center Dosing Weight 100, kg, BID, Start date: 12/24/16 17:00:00 DIRECTOR OF BILLING, Duration: 30 day, Stop date: 01/23/17 9:00:00 CSTNotes: (Same as: Enocot) heparin sodium, 5,000 unit, 1 No Longer [place] porcine 2500 UNT/ML mL, Route: Active 2016 Medical Injectable Solution SUB-Q, Drug Center form: INJ, Q8H, Dosing Weight 100, kg, Start date: 12/24/16 16:00:00 DIRECTOR OF BILLING, Duration: 30 day, Stop date: 01/23/17 8:00:00 CSTNotes: porcine heparin Dextrose 50% 25 gm, 50 mL, No Longer [place] Syringe Route: IVP, Active 2016 Medical Drug Form: INJ, Center Dosing Weight 100, kg, PRN, PRN Blood Glucose Results, Start date: 12/24/16 15:18:00 DIRECTOR OF BILLING, Duration: 30 day, Stop date: 01/23/17 15:17:00 DIRECTOR OF BILLING Glucagon 1 mg, Route: No Longer [place] IM, Drug form: Active 2016 Medical PDR/INJ, PRN, Center Dosing Weight 100, kg, PRN Blood Glucose Results, Start date: 12/24/16 15:18:00 DIRECTOR OF BILLING, Duration: 30 day, Stop date: 01/23/17 15:17:00 DIRECTOR OF BILLING sodium phosphate + 30 mmol, 10 mL, No Longer [place] sodium chloride Route: IVPB, Active 2017 Medical 0.9% INJ 250 mL PRN, Dosing Center Weight 100, kg, PRN Abnormal Lab Result, Start date: 12/24/16 15:18:00 DIRECTOR OF BILLING, Duration: 30 day, Stop date: 01/23/17 15:17:00 DIRECTOR OF BILLING, FOR ICU USE ONLY potassium chloride 10 mEq, 50 mL, No Longer [place] Route: IVPB, Active 2016 Medical Drug form: INJ, Center PRN, Dosing Weight 100, kg, PRN Abnormal Lab Result, Via peripheral line, Start date: 12/24/16 15:18:00 DIRECTOR OF BILLING, Duration: 30 day, Stop date: 01/23/17 15:17:00 DIRECTOR OF BILLING, FOR ICU USE ONLYNotes: (Same as: KCL) Infuse over 2 hours. Calcium Gluconate 1 gm, 10 mL, No Longer [place] Route: IVPB, Active 2016 Medical PRN, Dosing Center Weight 100, kg, PRN Abnormal Lab Result, Start date: 12/24/16 15:18:00 DIRECTOR OF BILLING, Duration: 30 day, Stop date: 01/23/17 15:17:00 DIRECTOR OF BILLING, FOR ICU USE ONLYNotes: WASTE: F/P - Sink; E - Municipal Trash Bin Calcium Carbonate 500 mg, 1 tab, No Longer [place] 500 MG Chewable Route: PO, Drug Active 2016 Medical Tablet form: CHEWTAB, Center PRN, Dosing Weight 100, kg, PRN Abnormal Lab Result, FOR ICU USE ONLY, Start date: 12/24/16 15:18:00 DIRECTOR OF BILLING, Duration: 30 day, Stop date: 01/23/17 15:17:00 CSTNotes: (Same As: Tums) Calcium Carbonate 500 jh=916 mg elemental calcium Dose= mg calcium carbonate ( mg elemental calcium) Magnesium Oxide 800 mg, 2 tab, No Longer [place] Route: PO, Drug Active 2016 Medical form: TAB, PRN, Center Dosing Weight 100, kg, PRN Abnormal Lab Result, FOR ICU USE ONLY, Start date: 12/24/16 15:18:00 DIRECTOR OF BILLING, Duration: 30 day, Stop date: 01/23/17 15:17:00 CSTNotes: (Same as: Mag-Ox 400) Magnesium oxide [id number] elemental magnesium Dose=____mg magnesium oxide (___mg elemental magnesium) potassium phosphate 30 mmol, 10 mL, No Longer + sodium chloride Route: IVPB, Active 2017 Medical 0.9% INJ 250 mL PRN, Dosing Center Weight 100, kg, PRN Abnormal Lab Result, Start date: 12/24/16 15:18:00 DIRECTOR OF BILLING, Duration: 30 day, Stop date: 01/23/17 15:17:00 DIRECTOR OF BILLING, FOR ICU USE ONLYNotes: (Same as: K Phosphate.) 1 mMol phoshate has 1.47 mEq potassium Infuse over 4 hours potassium 2 pkt, Route: No Longer [place] phosphate-sodium PO, Drug Form: Active 2017 Medical phosphate 250 PDR/REC, Dosing Center mg-280 mg-160 mg Weight 100, kg, oral powder for PRN, PRN reconstitution Abnormal Lab Result, FOR ICU USE ONLY, Start date: 12/24/16 15:18:00 DIRECTOR OF BILLING, Duration: 30 day, Stop date: 01/23/17 15:17:00 CSTNotes: (Same as: Phos-NaK) Each 1.5 gm pkt has 250mg phosphorous. Mix w/2.5oz water and stir. Magnesium Sulfate 2 gm, 50 mL, No Longer [place] Route: IVPB, Active 2016 Medical Drug form: INJ, Center PRN, Dosing Weight 100, kg, PRN Abnormal Lab Result, Start date: 12/24/16 15:18:00 DIRECTOR OF BILLING, Duration: 30 day, Stop date: 01/23/17 15:17:00 DIRECTOR OF BILLING, FOR ICU USE ONLYNotes: WASTE: F/P - Sink; E - Municipal Trash Bin sotalol 80 mg oral 80 mg=1 tab, No Longer [place] tablet PO, Daily, 0 Active 2016 Medical Refill(s) [place] gabapentin 400 MG 400 mg=1 cap, Active [...] Total Volume: 1,000, Start date: 12/24/16 14:56:00 DIRECTOR OF BILLING, Duration: 30 day, Stop date: 01/23/17 14:55:00 DIRECTOR OF BILLING Flumazenil 0.2 mg, Route: Inactive [facility] IVP, PRN, 2016 Medical Dosing Weight Center 100, kg, PRN Benzodiazepine Reversal, Initial dose, Start date: 12/24/16 12:56:00 DIRECTOR OF BILLING, Duration: 30 day, Stop date: 01/23/17 12:55:00 DIRECTOR OF BILLING Naloxone 0.4 mg, Route: Inactive [facility] IVP, Q2MIN, 2016 Medical Dosing Weight Center 100, kg, PRN Narcotic Reversal, Start date: 12/24/16 12:56:00 DIRECTOR OF BILLING, Duration: 8 doses or times, Stop date: Limited # of times Ondansetron 4 mg, Route: Inactive [facility] IVP, ONCE, 2016 Medical Dosing Weight Center 100, kg, PRN Nausea & Vomiting, Start date: 12/24/16 12:56:00 DIRECTOR OF BILLING Hydromorphone 0.5 mg, Route: Inactive [facility] IVP, Q5Min, 2016 Medical Dosing Weight Center 100, kg, PRN Pain Score 7-10, Start date: 12/24/16 12:56:00 DIRECTOR OF BILLING, Duration: 4 doses or times, Stop date: Limited # of times Hydralazine 10 mg, Route: Inactive [facility] IVP, Q20Min, 2016 Medical Dosing Weight Center 100, kg, PRN Elevated BP, Start date: 12/24/16 12:56:00 DIRECTOR OF BILLING, Duration: 2 doses or times, Stop date: Limited # of times Labetalol 10 mg, Route: Inactive [place] IVP, Q5Min, 2016 Medical Dosing Weight Center 100, kg, PRN Elevated BP, Start date: 12/24/16 12:56:00 DIRECTOR OF BILLING, Duration: 5 doses or times, Stop date: Limited # of times Saline Flush 0.9% 10 ml, Route: No Longer [facility] IVP, Drug Form: Active 2017 Medical INJ, Dosing Center Weight 100, kg, PRN, PRN Line Flush, Start date: 12/24/16 12:28:00 DIRECTOR OF BILLING, Duration: 30 day, Stop date: 01/23/17 12:27:00 CSTNotes: (Same as: BD Posiflush) Sodium Chloride 1,000 mL, Rate: No Longer [facility] 0.154 MEQ/ML 75 ml/hr, Active 2016 Medical Injectable Solution Infuse over: Center 13.3 hr, Route: IV, Dosing Weight 100 kg, Total Volume: 1,000, Start date: 12/24/16 12:28:00 DIRECTOR OF BILLING, Duration: 30 day, Stop date: 01/23/17 12:27:00 DIRECTOR OF BILLING Omnipaque 300 150 ml, Route: Inactive [facility] INTRAARTERIAL, 2017 Medical Dosing Weight Center 100, kg, ONCE, Start date: 12/24/16 11:54:00 DIRECTOR OF BILLING, Stop date: 12/24/16 11:54:00 DIRECTOR OF BILLING iodixanol 100 mL, Route: Inactive [facility] IVP, Drug Form: 2017 Medical SOLN, Dosing Center Weight 100, kg, ONCALL, STAT, Start date: 12/24/16 11:29:00 DIRECTOR OF BILLING, Duration: 1 doses or times, Dose=2.2ml/kg, Max [id number] -- "To be infused by Radiology Staff ONLY" Saline Flush 0.9% 10 mL, Route: No Longer [facility] IVP, Drug Form: Active 2016 Medical INJ, kg, PRN, Center PRN Line Flush, Start date: 12/24/16 11:08:00 DIRECTOR OF BILLING, Duration: 30 day, Stop date: 01/23/17 11:07:00 CSTNotes: (Same as: BD Posiflush) Allergies, Adverse Reactions, Alerts Substance Category Reaction Severity Reaction Status Date Comments Source type Reported Immunizations Immunization Date Given Site Status Last Comments Source Updated pneumococcal 12/25/2016 Left completed Vishal [facility] 13-valent vaccine deltoid [facility] Results Order Name Results Value Reference Date Interpretation Comments Source Range CHEM PANEL Phosphorus 2.5 mg/dL 2.5 - 4.5 12/26 [facility] /[address] [place] [address] CHEM PANEL eGFR 58 12/26 Result Comment: The eGFR is calculated using the CKD-EPI formula. In most young, healthy individuals the eGFR will be >90 mL/ min/1.73m2. The eGFR declines with age. An eGFR of 60-89 may be normal in [facility] mL/min/1.7 some populations, particularly the elderly, for whom the CKD-EPI formula has not been extensively validated. Use of the eGFR is not recommended in the following populations: [address] Individuals with unstable creatinine concentrations, including [...] BUN 17 mg/dL 7 - 22 12/[address] CHEM PANEL Glucose Lvl 95 mg/dL 70 - 99 12/[address] CHEM PANEL Potassium Lvl 3.7 meq/L 3.5 - 5.1 12/[address] CHEM PANEL Sodium Lvl 142 meq/L 135 - 145 12/[address] CHEM PANEL Creatinine 1.17 mg/dL 0.50 - 12/26 [facility] Lvl 1.40 [facility] CHEM PANEL CO2 27 meq/L 24 - 32 12/[address] CHEM PANEL Chloride Lvl 108 meq/L 95 - 109 12/[address] CHEM PANEL Calcium Lvl 8.4 mg/dL 8.5 - 10.5 12/[address] CHEM PANEL AGAP 10.7 meq/L 10.0 - 12/26 [facility] 20.0 [facility] CHEM PANEL Magnesium Lvl 2.2 mg/dL 1.8 - 2.4 12/[address] HEMATOLOGY Lymphocytes # 1.1 K/CMM 1.0 - 5.5 12/[address] HEMATOLOGY Segs-Bands # 6.9 K/CMM 1.5 - 8.1 12/[address] HEMATOLOGY Eosinophils # 0.2 K/CMM 0.0 - 0.5 12/[address] HEMATOLOGY Basophils # 0.1 K/CMM 0.0 - 0.2 12/[address] HEMATOLOGY Monocytes # 0.6 K/CMM 0.0 - 0.8 12/[address] Center HEMATOLOGY Basophils 0.7 % 0.0 - 1.0 12/26 [facility] HEMATOLOGY Segs 77.6 % 45.0 - 12/26 75.0 [facility] HEMATOLOGY Monocytes 7.1 % 2.0 - 12.0 12/26 [facility] HEMATOLOGY Eosinophils 1.9 % 0.0 - 4.0 12/26 [facility] HEMATOLOGY Lymphocytes 12.7 % 20.0 - 12/26 40.0 [facility] HEMATOLOGY MPV 9.1 fL 7.4 - 10.4 12/26 [facility] HEMATOLOGY Platelet 108 K/CMM 133 - 450 12/26 [facility] HEMATOLOGY RDW 13.8 % 11.5 - 12/26 [facility] 14.5 [facility] HEMATOLOGY WBC 8.9 K/CMM 3.7 - 10.4 12/26 [facility] HEMATOLOGY RBC 4.84 M/CMM 4.70 - 12/26 [facility] 6.10 [facility] HEMATOLOGY Hct 43.3 % 42.0 - 12/26 [facility] 54.0 [facility] HEMATOLOGY MCH 30.0 pg 27.0 - 12/26 [facility] 31.0 [facility] HEMATOLOGY Hgb 14.5 g/dL 14.0 - 12/26 [facility] 18.0 [facility] HEMATOLOGY MCHC 33.6 g/dL 32.0 - 12/26 [facility] 36.0 [facility] HEMATOLOGY MCV 89.4 fL 80.0 - 12/26 [facility] 94.0 [facility] PARATHYROID Ca Norm WB 1.15 1. - 12/26 [facility] PROFILE mMol/L 1. [facility] PARATHYROID Ca Ion WB 1.19 1.05 - 12/26 [facility] PROFILE mMol/L 1. [facility] URINE AND UA Mucus Few /LPF None Seen 12/26 [facility] STOOL /LPF /2016 [facility] URINE AND UA Sq Epi None Seen 12/26 [facility] STOOL /2016 [facility] URINE AND UA <=1.0 0.1 - 1.0 12/26 [facility] STOOL Urobilinogen mg/dL /2016 [facility] URINE AND UA Bacteria Occasional None Seen 12/26 [facility] STOOL /HPF /HPF /2016 [facility] URINE AND UA RBC 1 /HPF 0 - 2 12/26 [facility] URINE AND UA Nitrite Negative Negative 12/26 [facility] (12/25/16 6:01 PM) [place] URINE AND UA WBC 9 /HPF 0 - 5 12/26 [facility] URINE AND UA Leuk Est Large Negative 12/26 [facility] *ABN* [place] (12/25/16 6:01 PM) URINE AND UA Blood Negative Negative 12/26 [facility] (12/25/16 6:01 PM) [place] URINE AND UA Bili Negative Negative 12/26 [facility] *NA* [place] (12/25/16 6:01 PM) URINE AND UA Ketones Negative Negative 12/26 [facility] mg/dL mg/dL [facility] URINE AND UA pH 6.0 5.0 - 8.0 12/26 [facility] URINE AND UA Glucose Negative Negative 12/26 [facility] mg/dL mg/dL [facility] URINE AND UA Protein Negative Negative 12/26 [facility] mg/dL mg/dL [facility] URINE AND UA Turbidity Clear Clear 12/26 [facility] (12/25/16 6:01 PM) [place] URINE AND UA Color Yellow Yellow 12/26 [facility] *NA* [place] (12/25/16 6:01 PM) URINE AND UA Spec Grav 1.012 <=1.030 12/26 [facility] BACTERIAL - MRSA by PCR Negative 12/25 [facility] (12/25/16 1:53 PM) [place] CHEM PANEL eGFR 66 12/25 Result Comment: The eGFR is calculated using the CKD-EPI formula. In most young, healthy individuals the eGFR will be >90 mL/ min/1.73m2. The eGFR declines with age. An eGFR of 60-89 may be normal in [facility] mL/min/1. some populations, particularly the elderly, for whom the CKD-EPI formula has not been extensively validated. Use of the eGFR is not recommended in the following populations: [address] Individuals with unstable creatinine concentrations, including [...] Lvl 8.6 mg/dL 8.5 - 10.5 12/25 [facility] CHEM PANEL AGAP 13.0 meq/L 10.0 - 12/25 [facility] 20.0 [facility] CHEM PANEL Potassium Lvl 4.0 meq/L 3.5 - 5.1 12/[address] CHEM PANEL Chloride Lvl 109 meq/L 95 - 109 12/25 [facility]2016 [facility] CHEM PANEL CO2 24 meq/L 24 - 32 12/[address] CHEM PANEL Creatinine 1.05 mg/dL 0.50 - 12/25 [facility] Lvl 1.40 [facility] CHEM PANEL BUN 14 mg/dL 7 - 12/[address] CHEM PANEL Sodium Lvl 142 meq/L 135 - 145 12/[address] CHEM PANEL Glucose Lvl 107 mg/dL 70 - 99 12/[address] CHEM PANEL Phosphorus 2.4 mg/dL 2.5 - 4.5 12/[address] CHEM PANEL Globulin 3.0 g/dL 2.7 - 4.2 12/[address] CHEM PANEL A/G Ratio 1.0 0.7 - 1.6 12/[address] CHEM PANEL AGAP 10.4 meq/L 10.0 - 12/25 [facility] .0 [facility] CHEM PANEL B/C Ratio 20 6 - 25 12/[address] CHEM PANEL eGFR 62 12/25 Result Comment: The eGFR is calculated using the CKD-EPI formula. In most young, healthy individuals the eGFR will be >90 mL/ min/1.73m2. The eGFR declines with age. An eGFR of 60-89 may be normal in [facility] mL/min/1. some populations, particularly the elderly, for whom the CKD-EPI formula has not been extensively validated. Use of the eGFR is not recommended in the following populations: [address] Individuals with unstable creatinine concentrations, including [...] CO2 24 meq/L 24 - 32 12/[address] CHEM PANEL Total Protein 5.9 g/dL 6.4 - 8.4 12/[address] CHEM PANEL Calcium Lvl 7.9 mg/dL 8.5 - 10.5 12/[address] CHEM PANEL AST 12 unit/L 0 - 37 12/[address] CHEM PANEL ALT 15 unit/L 0 - 65 12/[address] CHEM PANEL Alk Phos 51 unit/L 39 - 136 12/[address] CHEM PANEL Albumin Lvl 2.9 g/dL 3.5 - 5.0 12/[address] CHEM PANEL Bili Total 0.8 mg/dL 0.2 - 1.3 12/[address] CHEM PANEL Glucose Lvl 117 mg/dL 70 - 99 12/[address] CHEM PANEL BUN 22 mg/dL 7 - 22 12/[address] CHEM PANEL Creatinine 1.11 mg/dL 0.50 - 12/25 [facility] Lvl 1.40 [facility] CHEM PANEL Sodium Lvl 138 meq/L 135 - 145 12/[address] CHEM PANEL Potassium Lvl 3.4 meq/L 3.5 - 5.1 12/[address] CHEM PANEL Chloride Lvl 107 meq/L 95 - 109 12/[address] CHEM PANEL Phosphorus 2.1 mg/dL 2.5 - 4.5 12/[address] CHEM PANEL Magnesium Lvl 2.2 mg/dL 1.8 - 2.4 12/[address] HEMATOLOGY Basophils # 0.1 K/CMM 0.0 - 0.2 12/[address] HEMATOLOGY Eosinophils # 0.2 K/CMM 0.0 - 0.5 12/[address] HEMATOLOGY Monocytes # 0.7 K/CMM 0.0 - 0.8 12/[address] HEMATOLOGY Lymphocytes # 1.5 K/CMM 1.0 - 5.5 12/25 [facility] HEMATOLOGY Eosinophils 2.4 % 0.0 - 4.0 12/25 [facility] HEMATOLOGY Monocytes 6.8 % 2.0 - 12.0 12/25 [facility] HEMATOLOGY Segs-Bands # 7.7 K/CMM 1.5 - 8.1 12/25 [facility] HEMATOLOGY Basophils 1.1 % 0.0 - 1.0 12/25 [facility] HEMATOLOGY Segs 74.9 % 45.0 - 12/25 [facility] 75.0 [facility] HEMATOLOGY Lymphocytes 14.8 % 20.0 - 12/25 [facility] 40.0 [facility] HEMATOLOGY MCHC 34.9 g/dL 32.0 - 12/25 36.0 [facility] HEMATOLOGY MCH 30.8 pg 27.0 - 12/25 [facility] 31.0 [facility] HEMATOLOGY Platelet 128 K/CMM 133 - 450 12/25 [facility] HEMATOLOGY RDW 14.1 % 11.5 - 12/25 14.5 [facility] HEMATOLOGY RBC 4.74 M/CMM 4.70 - 12/25 [place] 6.10 [facility] HEMATOLOGY WBC 10.3 K/CMM 3.7 - 10.4 12/25 [facility] HEMATOLOGY MPV 9.3 fL 7.4 - 10.4 12/25 [facility] HEMATOLOGY Hgb 14.6 g/dL 14.0 - 12/25 18.0 [facility] HEMATOLOGY MCV 88.3 fL 80.0 - 12/25 [facility] 94.0 [facility] HEMATOLOGY Hct 41.8 % 42.0 - 12/25 [place] 54.0 [facility] PARATHYROID Ca Ion WB 1.16 . - 12/25 [facility] PROFILE mMol/L . [facility] PARATHYROID Ca Norm WB 1.17 . - 12/25 [facility] PROFILE mMol/L . [facility] Brain wo Brain wo EXAM: MRI BRAIN WITHOUT CONTRAST 12/24 - [facility] contrast contrast MRI /2016 - [facility] DATE: 12/24/2016 12:28 PM DIRECTOR OF BILLING Read by: Marlon Fay MD Dictated Date/time: [...] Direct 0.2 mg/dL 0.0 - 0.3 12/[address] CHEM PANEL Alk Phos 51 unit/L 39 - 136 12/[address] CHEM PANEL Bili Total 1.0 mg/dL 0.2 - 1.3 12/[address] CHEM PANEL ALT 12 unit/L 0 - 65 12/[address] CHEM PANEL AST 13 unit/L 0 - 37 12/[address] CHEM PANEL Albumin Lvl 3.1 g/dL 3.5 - 5.0 12/[address] CHEM PANEL Total Protein 6.2 g/dL 6.4 - 8.4 12/24 [facility] CHEM PANEL Globulin 3.1 g/dL 2.7 - 4.2 12/24 [facility] CHEM PANEL A/G Ratio 1.0 0.7 - 1.6 12/24 [facility] CHEM PANEL Bili Indirect 0.8 mg/dL 0.0 - 1.0 12/24 [facility] LIPIDS CHD Risk 2.65 4.00 - 12/24 [place] 7.30 [facility] LIPIDS HDL 52 mg/dL >=61 mg/dL 12/24 [facility] LIPIDS Chol 138 mg/dL <=199 12/24 [facility] mg/dL [facility] LIPIDS VLDL 12 12/24 [facility] LIPIDS Trig 59 mg/dL <=149 12/24 [facility] mg/dL [facility] LIPIDS LDL 74 mg/dL <=99 mg/dL 12/24 [facility] (Calculated) [facility] SPECIAL Hgb A1C 5.1 % <=5.6 % 12/24 [facility] CHEMISTRY [facility] BLOOD BANK ABO/Rh A POS 12/24 [facility] RESULTS [facility] BLOOD BANK Antibody Scrn Negative 12/24 [facility] RESULTS [facility] (12/24/16 11:20 AM) Center CHEM PANEL POC 1.1 mg/dL 0.5 - 1.4 12/24 [facility] Creatinine [facility] CARDIAC Troponin-I null 0.00 - 12/24 [facility] ENZYMES 0.40 [facility] CARDIAC CK MB null 0.5 - 3.6 12/24 [facility] ENZYMES [facility] CARDIAC Total CK 36 unit/L 12 - 191 12/24 [facility] ENZYMES [facility] CARDIAC CK-MB INDEX null 0.0 - 2.5 12/24 [facility] ENZYMES [facility] HEMATOLOGY PT 14.9 s 12.0 - 12/24 [place] 14.7 [facility] HEMATOLOGY INR 1.15 0.85 - 12/24 [place] 1.17 [facility] HEMATOLOGY PTT 32.1 s 22.9 - 12/24 [place] 35.8 [facility] HEMATOLOGY MCV 89.5 fL 80.0 - 12/24 [place] 94.0 [facility] HEMATOLOGY RDW 14.1 % 11.5 - 12/24 [place] 14.5 [facility] HEMATOLOGY MCHC 33.6 g/dL 32.0 - 12/24 36.0 [facility] HEMATOLOGY MCH 30.1 pg 27.0 - 12/24 31.0 [facility] HEMATOLOGY MPV 8.6 fL 7.4 - 10.4 12/24 2016 [facility] HEMATOLOGY Platelet 127 K/CMM 133 - 450 12/24 2016 [facility] HEMATOLOGY Hct 41.7 % 42.0 - 12/24 54.0 [facility] HEMATOLOGY Hgb 14.0 g/dL 14.0 - 12/24 [facility] 18.0 [facility] HEMATOLOGY RBC 4.65 M/CMM 4.70 - 12/24 [facility] 6.10 [facility] HEMATOLOGY WBC 9.3 K/CMM 3.7 - 10.4 12/24 [facility] HEMATOLOGY Monocytes 5.3 % 2.0 - 12.0 12/[address] HEMATOLOGY Eosinophils 2.8 % 0.0 - 4.0 12/24 [facility] HEMATOLOGY Basophils 0.8 % 0.0 - 1.0 12/[address] HEMATOLOGY Lymphocytes 11.1 % 20.0 - 12/24 [facility] 40.0 [facility] HEMATOLOGY Eosinophils # 0.3 K/CMM 0.0 - 0.5 12/24 2016 [facility] HEMATOLOGY Basophils # 0.1 K/CMM 0.0 - 0.2 12/[address] HEMATOLOGY Segs-Bands # 7.4 K/CMM 1.5 - 8.1 12/[address] HEMATOLOGY Lymphocytes # 1.0 K/CMM 1.0 - 5.5 12/[address] HEMATOLOGY Monocytes # 0.5 K/CMM 0.0 - 0.8 12/[address] HEMATOLOGY Segs 80.0 % 45.0 - 12/24 [facility] 75.0 [facility] Chest 1view Chest 1view EXAM: XR CHEST 1 VIEW 12/24 - [facility] DX DX - [facility] DATE: 12/24/2016 11:08 AM DIRECTOR OF BILLING Read by: Willis Cardoso MD Dictated Date/time: [...] Angiogram Angiogram EMERGENT CEREBRAL REVASCULARIZATION 12/24 - [facility] /2016 - Medical artery artery This report was dictated by a Chair Mender/ Fellow. I have personally reviewed the images as Center bilateral bilateral VR well as the Resident's interpretation and agree with the findings. VR Read by: Maury Griffin MD Resident: Maury Griffin MD Dictated Date/time: 12/24/16 12:36 DATE: 12/24/2016 11:31 AM DIRECTOR OF BILLING Electronically Signed by: Alistair Carpio MD 12/25/16 [...] administered by the anesthesia team with the receiving team member present. The patient's systolic arterial blood pressure was kept between 140- 180 mmHg. The groin was prepped and draped in the usual sterile fashion. The Left common femoral artery was accessed by using singlewall micropuncture technique and an 9 [place] Cor dis sheath was placed. Under fluoroscopic and roadmap guidance, A 5 [place] Long Vert guide catheter coaxially advanced with a 0.035 " Terumo Glidewire telescoped within an 8 [place] Balloon guide ca theter to select the [...] segment the diagnostic catheter was removed. A [employer] microcatheter was coaxially advanced over a 0.014 [...] Stroke EXAM: CT BRAIN WITHOUT CONTRAST 12/24 [facility] Stroke wo wo /2016 - Medical contrast CT CT This report was dictated by a Chair Mender/ Fellow. I have personally reviewed the images as Center well as the Resident's interpretation and agree with the findings. DATE: 12/24/2016 11:05 AM DIRECTOR OF BILLING Read by: Dana Ortega MD Resident: Dana [...] EXAM: CT ANGIOGRAM OF THE BRAIN 12/24 [facility] Stroke Stroke /2017 - Medical perfusion perfusion CTA EXAM: CT ANGIOGRAM OF THE NECK Center CTA EXAM: CT PERFUSION OF THE BRAIN Read by: Eugenio Mckenna MD Dictated Date/time: 12/24/16 13:57 Electronically Signed by: Eugenio Mckenna MD 12/24/16 14:26 FINAL REPORT DATE: 12/24/2016 11:11 AM DIRECTOR OF BILLING INDICATION: Acute cognitive change COMPARISON: Contemporaneous CT [...] Comments Source Systolic (mm Hg) 123 12/26/2016 [facility] [place] Diastolic (mm Hg) 57 12/26/2016 [facility] [place] Respitory Rate 20 12/26/2016 [facility] [place] Temperature Oral (F) 100.4 F 12/26/2016 [facility] [place] Systolic (mm Hg) 116 12/26/2016 [facility] [place] Diastolic (mm Hg) 63 12/26/2016 [facility] [place] Respitory Rate 20 12/26/2016 [facility] [place] Systolic (mm Hg) 127 12/26/2016 [facility] [place] Diastolic (mm Hg) 67 12/26/2016 [facility] [place] Respitory Rate 20 12/26/2016 [facility] [place] Temperature Oral (F) 99.5 F 12/26/2016 [facility] [place] Temperature Oral (F) 99.9 F 12/26/2016 [facility] [place] Heart Rate 55 12/25/2016 [facility] [place] Weight 100 12/24/2016 [facility] [place] Height 190.5 cm 12/24/2016 [facility] [place] BMI Calculated 27.56 12/24/2016 [facility] [place] Heart Rate 75 12/24/2016 [facility] [place] Height 182.88 cm 12/24/2016 [facility] [place] BMI Calculated 29.9 12/24/2016 [facility] [place] Weight 100 12/24/2016 [facility] [place] Heart Rate 78 12/24/2016 [facility] [place] Encounters Location Location Encounter Encounter Reason Attending ADM DC Status Source Details Type Number For Provider Date Date [facility] [id number] [place] 12/24 12/26 [facility] Jair Rico [facility] Procedures Procedure Code Date Perfomer Comments Source Selective catheter 15553 12/24/2016 [facility] placement, common Medical carotid or innominate Center artery, unilateral, any approach, with angiography of the ipsilateral extracranial carotid circulation and all associated radiological supervision and interpretation, includes angiography of the c Selective catheter 78504 12/24/2016 [facility] placement, internal Medical carotid artery, Center unilateral, with angiography of the ipsilateral intracranial carotid circulation and all associated radiological supervision and interpretation, includes angiography of the extracranial carotid and ce Primary percutaneous [id number] 12/24/2016 [facility] thrombectomy, noncoronary, non-intracranial, arterial or arterial bypass graft, including fluoroscopic guidance and intraprocedural pharmacological thrombolytic injection(s); initial vessel Inguinal herniotomy [id number] [facility] [place] Manipulation of the [id number] [facility]
== END 2019-04-27 22:29 | disposition home or self-care (01) ==
LOC: ER 20:30
DX: S81.022A Laceration with foreign body, left knee, initial encounter (principal); W22.8XXA Striking against or struck by other objects, initial encounter; I48.91 Unspecified atrial fibrillation; I10 Essential (primary) hypertension; Z79.01 Long term (current) use of anticoagulants; Z86.73 Personal history of transient ischemic attack (TIA), and cerebral infarction without residual deficits
CPT/HCPCS: 99283

== ENCOUNTER 2020-05-01 06:30 | Day surgery (SDC) | payer OTHER, MEDICARE ==
--- OUTSIDE RECORDS SUMMARY | 2020-04-25 11:22 | XMS REPORT | Continuity of Care Document ---
:1935 Author Organization [facility] Care Team Providers Name Role Phone [facility] Unavailable Un available Problems Problem Status Onset Classification Date Comments Sourc e Date Reported STROKE Active 12/24/[address] LF Active 12/24/[address] Hyperlipidemia Resolved Problem 12/29/2016 [place] (disorder[place] [facility] Hypertensive Resolved Problem 12/29/2016 Rob as disorder, Medical systemic arterial Ce nter (disorder) CEREBRAL Active [facility] INFARCTION, Medical UNSPECIFIED Center Medications Medication Details Route Status Patient Ordering Order Source Instructions Provider Date Hydrochlorothiazide 1 tab, PO, Inactive 12/26[facility] 12.5 MG / Losartan Daily, 0 2017 [facility] agnieszka Potassium 100 MG Refill(s) Cente r Oral Tablet Eliquis Notes: Same as: Inactive 12/26[facility] Roba s Eliquis 2017 [facility] ciprofloxacin 250 250 mg = 1 tab, Active 12/26[facility] [place] mg oral tablet PO, Q12H, X 3 2017 Med ical day, # 6 tab, 0 Center Refill(s) Occupational See Active 12/26[facility] Garciela Therapy Instructions, 2017 [facility] Evaluate and Treat DX: R MCA ischemic stroke, # 1 appl, 0 Refill(s) Physical Therapy See Active 12/26[facility] Danielle s Instructions, 2017 [facility] outpatient physical therapy Dx: right MCA stroke, # 1 appl, 0 Refill(s) apixaban 5 MG Oral 5 mg = 1 tab, Active 12/26[facility] [place] Tablet [Eliquis] PO, BID, # 60 2017 M edical tab, 3 Center Refill(s) ciprofloxacin 250 250 mg = 1 tab, Inactive 12/26 [facility] [place] mg oral tablet PO, Q12H, X 10 2017 Me dical day, # 20 tab, Center 0 Refill(s) atorvastatin 40 mg 40 mg = 1 tab, Active 12/26[facility] [place] oral tablet PO, Bedtime, # 2017 Medic al 30 tab, 3 Center Refill(s) sotalol 80 mg oral 40 mg = 0.5 Active H [place] tablet tab, PO, 2017 Medical Bedtime, # 30 Center tab, 3 Refill(s) Rocephin Notes: (Same Inactive [place] As: Rocephin). 2017 Medical Use with 100 mL Center NS and infuse over 30 min MEDICATION WASTE Product Size: 1000 mg Product Wasted: ___ mg Sotalol 40 mg, Route: Inactive [place] Hydrochloride 80 MG PO, Q12H, 2017 Me dical Oral Tablet Dosing Weight Center 100, kg, Start date: 12/25/16 21:00:00 [employer], Duration: 30 day, Stop date: 01/24/17 9:00:00 [employer] sotalol Notes: (Same No Longer [place] As: Betapace) Active 2016 Medical 40 mg = 1/2 x Center 80 mg TAB pneumococcal Notes: (Same Inactive [place] 13-valent vaccine as: Prevnar 13) 2017 [facility] gabapentin 400 MG Notes: (Same No Longer [place] Oral Capsule as: Neurontin) Active 2017 [facility] Aspirin 325 MG Notes: (Do Not No Longer [place] Enteric Coated Crush) Do not Active 2016 Fl dical Tablet crush or chew. Center Streptococcus Notes: (Same Inactive [facility] [place] pneumoniae serotype as: Prevnar 13) 2017 [facility] 1 capsular antigen Cente r diphtheria [id number] protein conjugate vaccine / Streptococcus pneumoniae serotype 14 capsular antigen diphtheria [id number] protein conjugate vaccine / Streptococcus pneumoniae serotype 18C capsular antigen d gabapentin 400 MG Notes: (Same No Longer [facility] Oral Capsule as: Neurontin) Active 2017 [facility] Saline Flush 0.9% Notes: (Same No Longer [facility] as: BD Active 2016 [facility] Posiflush) Center Docusate Notes: (Same No Longer [facility] as: Colace) (Do Active 2016 [facility] Not Crush) Center atorvastatin Notes: (Same No Longer [place] as: Lipitor) Active 2017 Medical Center pneumococcal Notes: (Same No Longer [facility] [place] 13-valent vaccine as: Prevnar 13) Active 2017 Medical Center sennosides, LONGTERM Notes: (Same No Longer H [place] as: Senokot) Active 2017 Medical Center heparin sodium, Notes: porcine No Longer [place] porcine 2500 UNT/ML heparin Active 2016 [facility] agnieszka Injectable Solution Cent er Dextrose 50% 25 gm, 50 mL, No Longer [place] Syringe Route: IVP, Active 2016 Medical Drug Form: INJ, Center Dosing Weight 100, kg, PRN, PRN Blood Glucose Results, Start date: 12/24/16 15:18:00 [employer], Duration: 30 day, Stop date: 01/23/17 15:17:00 [employer] Glucagon 1 mg, Route: No Longer [place] IM, Drug form: Active 2016 Medical PDR/INJ, PRN, Center Dosing Weight 100, kg, PRN Blood Glucose Results, Start date: 12/24/16 15:18:00 [employer], Duration: 30 day, Stop date: 01/23/17 15:17:00 [employer] sodium phosphate + 30 mmol, 10 mL, No Longer [place] sodium chloride Route: IVPB, Active 2016 Med ical 0.9% INJ 250 mL PRN, Dosing Cent er Weight 100, kg, PRN Abnormal Lab Result, Start date: 12/24/16 15:18:00 [employer], Duration: 30 day, Stop date: 01/23/17 15:17:00 [employer], FOR ICU USE ONLY potassium chloride Notes: (Same No Longer [place] as: KCL) Active 2016 Medical Infuse over 2 Center hours. Calcium Gluconate Notes: WASTE: No Longer [place] F/P - Sink; E - Active 2016 [facility] Trash [place] Bin Calcium Carbonate Notes: (Same No Longer [place] 500 MG Chewable As: Tums) Active 2016 Medica l Tablet Calcium Center Carbonate 500 mg = 200 mg elemental calcium Dose = mg calcium carbonate ( mg elemental calcium) Magnesium Oxide Notes: (Same No Longer H [place] as: Mag-Ox 400) Active 2016 [facility] Magnesium oxide Center [id number] elemental magnesium Dose=____mg magnesium oxide (___mg elemental magnesium) potassium phosphate Notes: (Same No Longer 12/24 [place] + sodium chloride as: K Active 2016 Medica l 0.9% INJ 250 mL Phosphate.) 1 C enter mMol phoshate has 1.47 mEq potassium Infuse over 4 hours potassium Notes: (Same No Longer [place] s phosphate-sodium as: Phos-NaK) Active 2016 M edical phosphate 250 Each 1.5 gm pkt Ce nter mg-280 mg-160 mg has 250mg oral powder for phosphorous. reconstitution Mix w/2.5oz water and stir. Magnesium Sulfate Notes: WASTE: No Longer Gr[place] F/P - Sink; E - Active 2016 [facility] Trash Center Bin sotalol 80 mg oral 80 mg = 1 tab, No Longer 12/01 [place] tablet PO, Daily, 0 Active 2016 Medical Refill(s) Center gabapentin 400 MG 400 mg = 1 cap, Active [place] Oral Capsule PO, TID, # 90 2016 Medic al cap, 1 Center Refill(s) tramadol 50 mg = 1 tab, Active [place] hydrochloride 50 MG PO, BID, # 30 2017 Medical Oral Tablet tab, 0 Center Refill(s) sodium chloride 1,000 mL, Rate: No Longer [place] 0.9% 1000 ml INJ 75 ml/hr, Active 2016 Medic al 1,000 mL Infuse over: Center 13.3 hr, Route: IV, Dosing Weight 100 kg, Total Volume: 1,000, Start date: 12/24/16 14:56:00 [employer], Duration: 30 day, Stop date: 01/23/17 14:55:00 [employer] Flumazenil 0.2 mg, Route: Inactive [place] IVP, PRN, 2016 Medical Dosing Weight Center 100, kg, PRN Benzodiazepine Reversal, Initial dose, Start date: 12/24/16 12:56:00 [employer], Duration: 30 day, Stop date: 01/23/17 12:55:00 [employer] Naloxone 0.4 mg, Route: Inactive [place] IVP, Q2MIN, 2016 Medical Dosing Weight Center 100, kg, PRN Narcotic Reversal, Start date: 12/24/16 12:56:00 [employer], Duration: 8 doses or times, Stop date: Limited # of times Ondansetron 4 mg, Route: Inactive [place] as IVP, ONCE, 2016 Medical Dosing Weight Center 100, kg, PRN Nausea & Vomiting, Start date: 12/24/16 12:56:00 [employer] Hydromorphone 0.5 mg, Route: Inactive [place] IVP, Q5Min, 2016 Medical Dosing Weight Center 100, kg, PRN Pain Score 7-10, Start date: 12/24/16 12:56:00 [employer], Duration: 4 doses or times, Stop date: Limited # of times Hydralazine 10 mg, Route: Inactive [place] IVP, Q20Min, 2016 Medical Dosing Weight Center 100, kg, PRN Elevated BP, Start date: 12/24/16 12:56:00 [employer], Duration: 2 doses or times, Stop date: Limited # of times Labetalol 10 mg, Route: Inactive [place] IVP, Q5Min, 2016 Medical Dosing Weight Center 100, kg, PRN Elevated BP, Start date: 12/24/16 12:56:00 [employer], Duration: 5 doses or times, Stop date: Limited # of times Saline Flush 0.9% Notes: (Same No Longer [place] as: BD Active 2016 Medical Posiflush) Center Sodium Chloride 1,000 mL, Rate: No Longer Graciel[place] 0.154 MEQ/ML 75 ml/hr, Active 2016 Medical Injectable Solution Infuse over: Center 13.3 hr, Route: IV, Dosing Weight 100 kg, Total Volume: 1,000, Start date: 12/24/16 12:28:00 [employer], Duration: 30 day, Stop date: 01/23/17 12:27:00 [employer] Omnipaque 300 150 ml, Route: Inactive 12/24[facility] Graciela INTRAARTERIAL, 2016 Medical Dosing Weight Center 100, kg, ONCE, Start date: 12/24/16 11:54:00 [employer], Stop date: 12/24/16 11:54:00 [employer] iodixanol 100 mL, Route: Inactive Rob as IVP, Drug Form: 2017 Medical SOLN, Dosing Center Weight 100, kg, ONCALL, STAT, Start date: 12/24/16 11:29:00 [employer], Duration: 1 doses or times, Dose = 2.2ml/kg, Max dose = 100ml -- "To be infused by Radiology Staff ONLY" Saline Flush 0.9% Notes: (Same No Longer [facility] as: BD Active 2017 Medical Posiflush) Center Allergies, Adverse Reactions, Alerts No Known Medication Allergies Immunizations Immunization Date Given Site Status Last Comments Source Updated pneumococcal 12/25/2016 Left completed Vishal Rob as 13-valent vaccine deltoid Me dical Center Results Order Name Results Value Reference Date Interpretation Comments Janet rce Range CHEM PANEL Phosphorus 2.5 2.5 - 4.5 12/26 [facility] CHEM PANEL eGFR 58 12/26 Result Comment: The Medical eGFR is Center calculated using the CKD-EPI formula. In most young, healthy individuals the eGFR will be >90 mL/min/1.73m2 . The eGFR declines with age. An eGFR of 60-89 may be normal in some populations, particularly the elderly, for whom the CKD-EPI formula has not been extensively validated. Use of the eGFR is not recommended in the following populations:< br/>
Norma viduals with unstable creatinine concentration s, including patients and those with serious co-morbid conditions.<b r/>
Patie nts with extremes in muscle mass or diet.

The data above are obtained from the National Kidney Disease Education Program (NKDEP) which additionally recommends that when the eGFR is used in patients with extremes of body mass index for purposes of drug dosing, the eGFR should be multiplied by the estimated BMI. CHEM PANEL BUN 17 7 - 22 12/26 [facility] CHEM PANEL Glucose Lvl 95 70 - 99 12/26 [facility] CHEM PANEL Potassium Lvl 3.7 3.5 - 5.1 12/26 [place] [facility] CHEM PANEL Sodium Lvl 142 135 - 145 12/26 [facility] CHEM PANEL Creatinine 1.17 0.50 - 12/26 [facility] Lvl 1.40 [facility] CHEM PANEL CO2 27 24 - 32 12/26 [facility] CHEM PANEL Chloride Lvl 108 95 - 109 12/26 [place] [facility] CHEM PANEL Calcium Lvl 8.4 8.5 - 10.5 12/26 Rob as [facility] CHEM PANEL AGAP 10.7 10.0 - 12/26 [facility] 20.0 [facility] CHEM PANEL Magnesium Lvl 2.2 1.8 - 2.4 12/26 [facility] HEMATOLOGY Lymphocytes # 1.1 1.0 - 5.5 12/26 [facility] HEMATOLOGY Segs-Bands # 6.9 1.5 - 8.1 12/26 [facility] HEMATOLOGY Eosinophils # 0.2 0.0 - 0.5 12/26 [facility] HEMATOLOGY Basophils # 0.1 0.0 - 0.2 12/26 [facility] HEMATOLOGY Monocytes # 0.6 0.0 - 0.8 12/26 [facility] HEMATOLOGY Basophils 0.7 0.0 - 1.0 12/26 [facility] HEMATOLOGY Segs 77.6 45.0 - 12/26 [place] 75.0 [facility] HEMATOLOGY Monocytes 7.1 2.0 - 12.0 12/26 [facility] HEMATOLOGY Eosinophils 1.9 0.0 - 4.0 12/26 [facility] HEMATOLOGY Lymphocytes 12.7 20.0 - 12/26 [place] 40.0 [facility] HEMATOLOGY MPV 9.1 7.4 - 10.4 12/26 [facility] HEMATOLOGY Platelet 108 133 - 450 12/26 [facility] HEMATOLOGY RDW 13.8 11.5 - 12/26 [place] 14.5 [facility] HEMATOLOGY WBC 8.9 3.7 - 10.4 12/26 [facility] HEMATOLOGY RBC 4.84 4.70 - 12/26 [place] 6.10 [facility] HEMATOLOGY Hct 43.3 42.0 - 12/26 [place] 54.0 [facility] HEMATOLOGY MCH 30.0 27.0 - 12/26 [place] 31.0 [facility] HEMATOLOGY Hgb 14.5 14.0 - 12/26 [place] 18.0 [facility] HEMATOLOGY MCHC 33.6 32.0 - 12/26 [place] 36.0 [facility] HEMATOLOGY MCV 89.4 80.0 - 12/26 [place] 94.0 [facility] PARATHYROID Ca Norm WB 1.15 1.05 - 12/26 [place] PROFILE 1.25 [facility] PARATHYROID Ca Ion WB 1.19 1.05 - 12/26 [place] PROFILE 1.25 [facility] URINE AND UA Mucus Few /LPF None Seen 12/26 [facility] STOOL /LPF /2016 [facility] URINE AND UA Sq Epi None Seen 12/26 [facility] URINE AND UA <=1.0 0.1 - 1.0 12/26 [facility] Urobilinogen mg/dL [facility] URINE AND UA Bacteria Occasional None Seen 12/26 [place] STOOL /HPF /HPF [facility] URINE AND UA RBC 1 0 - 2 12/26 [facility] URINE AND UA Nitrite Negative Negative 12/26 [facility] (12/25/16 6:01 PM) [facility] URINE AND UA WBC 9 0 - 5 12/26 [facility] URINE AND UA Leuk Est Large Negative 12/26 [facility] *ABN* [facility] (12/25/16 6:01 PM) [place] URINE AND UA Blood Negative Negative 12/26 [facility] (12/25/16 6:01 PM) [facility] URINE AND UA Bili Negative Negative 12/26 [facility] *NA* /2016 [facility] (12/25/16 6:01 PM) [place] URINE AND UA Ketones Negative Negative 12/26 [facility] mg/dL mg/dL [facility] URINE AND UA pH 6.0 5.0 - 8.0 12/26 [facility] URINE AND UA Glucose Negative Negative 12/26 [facility] mg/dL mg/dL [facility] URINE AND UA Protein Negative Negative 12/26 [facility] mg/dL mg/dL [facility] URINE AND UA Turbidity Clear Clear 12/26 [facility] (12/25/16 6:01 PM) [facility] URINE AND UA Color Yellow Yellow 12/26 [facility] *NA* [facility] (12/25/16 6:01 PM) [place] URINE AND UA Spec Grav 1.012 <=1.030 12/26 [facility] [address] [place] [address] BACTERIAL - MRSA by PCR Negative 12/25 [place] [facility] (12/25/16 1:53 PM) /2016 [facility] CHEM PANEL eGFR 66 12/25 Result Comment: The Medical eGFR is Center calculated using the CKD-EPI formula. In most young, healthy individuals the eGFR will be >90 mL/min/1.73m2 . The eGFR declines with age. An eGFR of 60-89 may be normal in some populations, particularly the elderly, for whom the CKD-EPI formula has not been extensively validated. Use of the eGFR is not recommended in the following populations:< br/>
Norma viduals with unstable creatinine concentration s, including patients and those with serious co-morbid conditions.<b r/>
Patie nts with extremes in muscle mass or diet.

The data above are obtained from the National Kidney Disease Education Program (NKDEP) which additionally recommends that when the eGFR is used in patients with extremes of body mass index for purposes of drug dosing, the eGFR should be multiplied by the estimated BMI. CHEM PANEL Calcium Lvl 8.6 8.5 - 10.5 12/25 [facility] CHEM PANEL AGAP 13.0 10.0 - 12/25 [facility] CHEM PANEL Potassium Lvl 4.0 3.5 - 5.1 12/25 [place] [facility] CHEM PANEL Chloride Lvl 109 95 - 109 12/25 [facility] CHEM PANEL CO2 24 24 - 32 12/25 2016 [facility] CHEM PANEL Creatinine 1.05 0.50 - 12/25 [facility] Lvl 1.40 [facility] CHEM PANEL BUN 14 7 - 22 12/25 2016 [facility] CHEM PANEL Sodium Lvl 142 135 - 145 12/25 [facility] CHEM PANEL Glucose Lvl 107 70 - 99 12/25 2016 [facility] CHEM PANEL Phosphorus 2.4 2.5 - 4.5 12/25 2016 [facility] CHEM PANEL Globulin 3.0 2.7 - 4.2 12/25 2016 [facility] CHEM PANEL A/G Ratio 1.0 0.7 - 1.6 12/25 [facility] CHEM PANEL AGAP 10.4 10.0 - 12/25 [facility] CHEM PANEL B/C Ratio 20 6 - 25 12/25 2016 [facility] CHEM PANEL eGFR 62 12/25 [facility] Comment: The Medical eGFR is Center calculated using the CKD-EPI formula. In most young, healthy individuals the eGFR will be >90 mL/min/1.73m2 . The eGFR declines with age. An eGFR of 60-89 may be normal in some populations, particularly the elderly, for whom the CKD-EPI formula has not been extensively validated. Use of the eGFR is not recommended in the following populations:< br/>
Norma viduals with unstable creatinine concentration s, including patients and those with serious co-morbid conditions.<b r/>
Patie nts with extremes in muscle mass or diet.

The data above are obtained from the National Kidney Disease Education Program (NKDEP) which additionally recommends that when the eGFR is used in patients with extremes of body mass index for purposes of drug dosing, the eGFR should be multiplied by the estimated BMI. CHEM PANEL CO2 24 24 - 32 12/[address] CHEM PANEL Total Protein 5.9 6.4 - 8.4 12/25 [facility] CHEM PANEL Calcium Lvl 7.9 8.5 - 10.5 12/25 [facility] CHEM PANEL AST 12 0 - 37 12/[address] CHEM PANEL ALT 15 0 - 65 12/[address] CHEM PANEL Alk Phos 51 39 - 136 12/[address] CHEM PANEL Albumin Lvl 2.9 3.5 - 5.0 12/25 [facility] CHEM PANEL Bili Total 0.8 0.2 - 1.3 12/[address] CHEM PANEL Glucose Lvl 117 70 - 99 12/[address] CHEM PANEL BUN 22 7 - 22 12/[address] CHEM PANEL Creatinine 1.11 0.50 - 12/25 [facility] Lvl 1.40 [facility] CHEM PANEL Sodium Lvl 138 135 - 145 12/[address] CHEM PANEL Potassium Lvl 3.4 3.5 - 5.1 12/[address] CHEM PANEL Chloride Lvl 107 95 - 109 12/[address] CHEM PANEL Phosphorus 2.1 2.5 - 4.5 12/[address] CHEM PANEL Magnesium Lvl 2.2 1.8 - 2.4 12/25 [facility] HEMATOLOGY Basophils # 0.1 0.0 - 0.2 12/25 [facility] HEMATOLOGY Eosinophils # 0.2 0.0 - 0.5 12/25 [facility] HEMATOLOGY Monocytes # 0.7 0.0 - 0.8 12/25 [facility] HEMATOLOGY Lymphocytes # 1.5 1.0 - 5.5 12/25 [facility] HEMATOLOGY Eosinophils 2.4 0.0 - 4.0 12/25 [facility] HEMATOLOGY Monocytes 6.8 2.0 - 12.0 12/25 [facility] HEMATOLOGY Segs-Bands # 7.7 1.5 - 8.1 12/25 [facility] HEMATOLOGY Basophils 1.1 0.0 - 1.0 12/25 [facility] HEMATOLOGY Segs 74.9 45.0 - 12/25 [place] 75.0 [facility] HEMATOLOGY Lymphocytes 14.8 20.0 - 12/25 [place] 40.0 [facility] HEMATOLOGY MCHC 34.9 32.0 - 12/25 [place] 36.0 [facility] HEMATOLOGY MCH 30.8 27.0 - 12/25 [place] 31.0 [facility] HEMATOLOGY Platelet 128 133 - 450 12/25 [facility] HEMATOLOGY RDW 14.1 11.5 - 12/25 [place] 14.5 [facility] HEMATOLOGY RBC 4.74 4.70 - 12/25 [place] 6.10 [facility] HEMATOLOGY WBC 10.3 3.7 - 10.4 12/25 [facility] HEMATOLOGY MPV 9.3 7.4 - 10.4 12/25 [facility] HEMATOLOGY Hgb 14.6 14.0 - 12/25 [place] 18.0 [facility] HEMATOLOGY MCV 88.3 80.0 - 12/25 [place] 94.0 [facility] HEMATOLOGY Hct 41.8 42.0 - 12/25 [place] 54.0 [facility] PARATHYROID Ca Ion WB 1.16 1. - 12/25 [place] PROFILE 1. [facility] PARATHYROID Ca Norm WB 1.17 1.05 - 12/25 [place] PROFILE 1. [facility] CHEM PANEL Bili Direct 0.2 0.0 - 0.3 12/24 a [facility] CHEM PANEL Alk Phos 51 39 - 136 12/24 [facility] CHEM PANEL Bili Total 1.0 0.2 - 1.3 12/24 [facility] CHEM PANEL ALT 12 0 - 65 12/24 [facility] CHEM PANEL AST 13 0 - 37 12/24 [facility] CHEM PANEL Albumin Lvl 3.1 3.5 - 5.0 12/24 a s [facility] CHEM PANEL Total Protein 6.2 6.4 - 8.4 12/24 [facility] CHEM PANEL Globulin 3.1 2.7 - 4.2 12/24 [facility] CHEM PANEL A/G Ratio 1.0 0.7 - 1.6 12/24 [facility] CHEM PANEL Bili Indirect 0.8 0.0 - 1.0 12/24 [facility] LIPIDS CHD Risk 2.65 4.00 - 12/24 [place] 7.30 [facility] LIPIDS HDL 52 >=61 mg/dL 12/24 [facility] LIPIDS Chol 138 <=199 12/24 [facility] mg/dL [facility] LIPIDS VLDL 12 12/24 [facility] LIPIDS Trig 59 <=149 12/24 [facility] mg/dL [facility] LIPIDS LDL 74 <=99 mg/dL 12/24 [facility] (Calculated) [facility] SPECIAL Hgb A1C 5.1 <=5.6 % 12/24 [facility] CHEMISTRY [facility] BLOOD BANK ABO/Rh A POS 12/24 [facility] RESULTS [facility] BLOOD BANK Antibody Scrn Negative 12/24 [facility] as RESULTS (12/24/16 11:20 AM) /2016 [facility] CHEM PANEL POC 1.1 0.5 - 1.4 12/24 [facility] Creatinine [facility] CARDIAC Troponin-I <0.02 0.00 - 12/24 [facility] ENZYMES 0.40 [facility] CARDIAC CK MB <0.5 0.5 - 3.6 12/24 [facility] ENZYMES [facility] CARDIAC Total CK 36 12 - 191 12/24 [facility] ENZYMES [facility] CARDIAC CK-MB INDEX <1.4 0.0 - 2.5 12/24 ENZYMES [facility] HEMATOLOGY PT 14.9 12.0 - 12/24 14.7 [facility] HEMATOLOGY INR 1.15 0.85 - 12/24 [place] 1.17 [facility] HEMATOLOGY PTT 32.1 22.9 - 12/24 [place] 35.8 /2016 [facility] HEMATOLOGY MCV 89.5 80.0 - 12/24 [place] 94.0 [facility] HEMATOLOGY RDW 14.1 11.5 - 12/24 [place] 14.5 [facility] HEMATOLOGY MCHC 33.6 32.0 - 12/24 [place] 36.0 [facility] HEMATOLOGY MCH 30.1 27.0 - 12/24 [place] 31.0 [facility] HEMATOLOGY MPV 8.6 7.4 - 10.4 12/24 [facility] HEMATOLOGY Platelet 127 133 - 450 12/24 [facility] HEMATOLOGY Hct 41.7 42.0 - 12/24 54.0 [facility] HEMATOLOGY Hgb 14.0 14.0 - 12/24 [place] 18.0 [facility] HEMATOLOGY RBC 4.65 4.70 - 12/24 [place] 6.10 [facility] HEMATOLOGY WBC 9.3 3.7 - 10.4 12/24 [facility] HEMATOLOGY Monocytes 5.3 2.0 - 12.0 12/24 [facility] HEMATOLOGY Eosinophils 2.8 0.0 - 4.0 12/24 [facility] [facility] HEMATOLOGY Basophils 0.8 0.0 - 1.0 12/24 [facility] HEMATOLOGY Lymphocytes 11.1 20.0 - 12/24 [place] 40.0 2017 [facility] HEMATOLOGY Eosinophils # 0.3 0.0 - 0.5 12/24 [facility] HEMATOLOGY Basophils # 0.1 0.0 - 0.2 12/24 [facility] HEMATOLOGY Segs-Bands # 7.4 1.5 - 8.1 12/24 [facility] HEMATOLOGY Lymphocytes # 1.0 1.0 - 5.5 12/24 [facility] HEMATOLOGY Monocytes # 0.5 0.0 - 0.8 12/24 [facility] HEMATOLOGY Segs 80.0 45.0 - 12/24 [facility] 75.0 2017 [facility] Pathology Reports No Data Provided for This Section Diagnostic Reports Report Value Date Source Brain wo contrast MRI EXAM: MRI BRAIN WITHOUT CONTRAST 7 [facility] DATE: 12/24/2016 12:28 PM [facility] [employer] B[employer] T[employer] [place] [facility] INDICATION: 81 years old Mal e patient with history of Altered level of consciousness. COMPARISON: CT head 12/24/2016 TECHNIQUE: Multiplanar, multisequence MRI of the brain without contrast. FINDINGS: Multifocal areas of diffusio n restriction are seen within the right basal ganglia including the right caudate and putamen are noted compatible with acute/subacute ischemic infarct. No definite hemorrhag ic transformation is identif ied. No evidence of intracranial hemorrhage. No parenchymal mass, mass effect or midline shift is present. Mild periventricular and subcortical white matter T/FLAIR hyperinte nsity, nonspecific and most commonly secondary to chronic microvascular ischemic changes. No pathologic extra axial fluid is identified. Major intracranial vascular flow voids are preserved. There is pr ominent fatty tissue compati ble with lipoma in the left retromaxillary space measuring about 2.8 x 2.1 cm displacing the posterior wall of the left major sinus inferiorly. There is also inferior displac ement of the left orbital fl oor by excessive intraorbital fatty tissue compared to the right. Otherwise the paranasal sinuses are clear. Small left mastoid effusion is identified. IMPRESSION: 1. Multifocal areas of diff usion restriction are seen within the right basal ganglia compatible with acute/subacute ischemic infarct. No definite hemorrhagic transformation is identified at this time. 2. A 2.8 cm fatty tissue in the left retromaxillary space displacing the posterior wall of the left maxillary sinus anteriorly compatible with lipoma. Inferior displacement of the left orbital floor by extra fatty tissue in the i nferior aspect of the left orbit compared to the right. Ophthalmology exam would be helpful to evaluate for enophthalmos. Chest 1view DX EXAM: XR CHEST 1 VIEW 12/24/2016 [facility] edical DATE: 12/24/2016 11:08 AM [facility] [employer] [place] [facility] INDICATION: CVA COMPARISON: None TECHNIQUE: AP chest FINDINGS: There is left basilar atelec tasis versus scarring. Rest of the lungs are clear. No pleural effusions or pneumothorax. Cardiomediastinal silhouette is normal limits. No acute osseous abnormality. Soft tissues are within normal limits. IMPRESSION: Left basilar atelectasis versus sca rring. Angiogram cervical EMERGENT CEREBRAL REVASCULARIZATION 7 [facility] bilateral [facility] DATE: 12/24/2016 11:31 AM [facility] [employer] [employer] T[employer] HISTORY:81 years Male wit h acute onset of left-sided hemiplegia. 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 INDICATION: Acute ischemic s troke within the appropriate time frame and meeting established criteria. ATTENDING SURGEON: Alistair gagnon M.D. Attending physician was present throughout the entire procedure and interpreted the angiographic results. FELLOW SURGEON: Dr. Maury Mckeon Attending physician was pres ent throughout the entire procedure and interpreted the angiographic results. CONSENT: The risks, benefits , and alternatives of the procedure were described to the medical proxy in detail. These risks include but are not limited to the following: vascular damage, stroke, intracr anial hemorrhage, coma, deat h, radiation injury, contrast induced renal dysfunction and leg hematoma/vascular compromise necessitating further intervention or resulting in loss of limb. The medical proxy provided informed consent to the procedure. PROCEDURE IN DETAIL: After obtaining written info rmed consent, the patient was brought to the neuroangiography suite and placed on the angio table in a supine position. Time out protocol was performed to confirm the patient 's identity, the procedure s ite, and the indication. General anesthesia was administered by the anesthesia team with the education faculty member present. The patient's systolic arterial blood p ressure was kept between 140 - 180 mmHg. The groin was prepped and draped in the usual sterile fashion. The Left common femoral artery was accessed by using singlewall micropuncture technique and an 9 Fr HASH Cordis sheath was place d. Under fluoroscopic and roadmap guidance, A 5 Finnish Long Vert guide catheter coaxially advanced with a 0.035 ' Terumo Glidewire telescoped within an 8 Finnish Balloon guide catheter to select the Righ t Internal carotid artery. Digital angiograms in AP, lateral and oblique planes were performed. After reviewing all the omkar ography data, complete occlusion of the right internal carotid artery communicating segment was confirmed. Therefore proceeding with mechanical thrombectomy is indicated. Nit roglycerine was administered in order to facilitate guide catheter placement with close monitoring of systolic blood pressure. . Under roadmap guidance the guide catheter was advanced to the right inter nal carotid artery upper cer vical segment the diagnostic catheter was removed. A Marksman microcatheter was coaxially advanced over a 0.014 [...] aspiration wa s induced by utilizing the P enumbra suction device as well as hand aspiration, simultaneously while retrieving the stent through the microcatheter. A small amount of thrombus was retrieved. Angiogram ru ns following aspiration demo nstrated flow was Restored and confirmed on follow- up angiogram runs. After final review of the po st-thrombectomy angiograms, the guide catheter was then withdrawn to perform a common femoral artery angiogram. The artery was deemed acceptable for application of Angio-Seal closure device. The device was employed, pressure was held, pulses were at baseline and complete hemostasis was obtained. The patient was monitored th roughout the procedure by the anesthesia team and remained hemodynamically stable. No new neurological deficit was identified after the procedure, and the patient was transpo rted to the intensive care unit in stable condit ion. ANESTHESIA: General Anesthes ia under direction of attending anesthesiologist. Pre-, intra- and post- procedure monitoring records available in chart. CONTRAST:50 mL RADIATION: AP: 1482 mGy LATERAL: 456 mGy FLUORO TIME: 17 minutes COMPLICATIONS: None immediate. TASKS: 1. Left femoral artery catheterization 2. Right internal carotid artery cathete rization followed by 2-D angiogram run 3. Right middle cerebral art samira superselective catheterization was marksman microcatheter 4. Right internal carotid artery mechani agnieszka thrombectomy using retrieval stent 5. Application of Angio-Seal closing device FINDINGS: Pre-treatment 1. Right internal carotid ar bernadette : Right internal carotid artery injection revealed opacification of the right internal carotid artery with complete occlusion at the communicating segment after the riaz eoff of the right posterior communicating artery . There is evidence of perfusion deficit associated with the right hemisphere and both middle cerebral artery and anterior cerebral artery territory . FINDINGS: Post-treatment 1. Right internal carotid ar bernadette : Right internal carotid artery injection revealed brisk opacification of the right internal carotid artery, right middle cerebral artery and right anterior cerebral ar bernadette . There is evidence of recanalization of the previously described occlusions achieving TICI 3 . IMPRESSION: 1. Right internal carotid artery occlusion at th e terminus 2. Successful Recanalization of Right internal c arotid TICI Grade 3 Brain Stroke wo EXAM: CT BRAIN WITHOUT CONTRAST 12/24/2016 [facility] Medical contrast CT DATE: 12/24/2016 11:05 AM [facility] [employer] [place] [facility] INDICATION: Acute cognitive change COMPARISON: None available TECHNIQUE: Routine axial CT images of the brain were obtained IV contrast: None. DLP: 880 mGy-cm FINDINGS: Increased attenuation is noted in the carotid te rminus and right M1 segment. ASPECTS: 9 Laterality: [...] equals 9. No hemorrhage. 2. Imaging findings compatib le with silent sinus syndrome on the left. Correlation for history of diplopia is recommended. Brain/Neck Stroke EXAM: CT ANGIOGRAM OF THE BRAIN 12/24/2016 [facility] Medical perfusion CTA EXAM: CT ANGIOGRAM OF THE NECK C enter EXAM: CT PERFUSION OF THE BRAIN DATE: 12/24/2016 11:11 AM [facility] [employer] T[employer] INDICATION: Acute cognitive change COMPARISON: Contemporaneous CT brain. TECHNIQUE: - Dynamic CT perfusion image s on a limited area of the brain [...] of CT angiograph y. 3-D CT angiographic image s are created using maximum intensity projection technique at the acquisition workstation. The source images are also presented for interpretation. IV contrast: 100 mL Visipaque 320. DOSE: Total DLP 3609 mGy*cm FINDINGS: NECK CTA: Aortic arch: The great vesse ls originate from the aortic arch in the standard configuration. No origin stenosis is identified. The vertebral artery origins are patent bilaterally. Carotid arteries: The cervic al common carotid arteries and cervical internal carotid [...] no evidence of vascular injury. Vertebral arteries:The verte bral arteries are co-dominant. The vertebral arteries have a normal course, caliber and contour. A lipoma is identified on th e right in the paraspinous musculature corresponding with C4, C5 and C6. The remaining soft tissues of the neck and other incidental structures are normal. BRAIN CTA: Anterior circulation: T occlusion of the right int ernal carotid artery is present. There is clot extending into the proximal half of the right A1 segment as well as into the medial 3 mm of the M1 segment. Caliber and contras t density of the remainder o f the M1 segment is markedly diminished as it is being reperfused by collaterals. Overall contrast density to the right hemisphere is less and there are fewer peripheral branches noted in this hemisphere. No contralateral branch occl usion, vascular injury, arteritis, vascular malformation or aneurysm is identified. Posterior circulation: The m ost distal portion of the right vertebral artery is abnormal. There is a peripherally located filling defect along the medial aspect of the distal V4 segment approximately 4 mm proximal to the confluenc e. The resulting narrowing measures nearly 60%. Normal appearance and a standard branching pattern. [...] are almost normal. A reduction in cerebral bloo d flow and cerebral blood volume is seen in the posterior lateral aspect of the right putamen. A focal area of diminished c erebral blood volume is noted laterally in the right temporal lobe on image 2. There is also reduction in cerebral blood volume on the lowest image which includes the aspect of the right frontal lobe (i mage 3) immediately anterior to the insula. There is also a small region of diminished cerebral blood flow on the right in the M4 region with a tiny area in the a.m. 5 region . Each of the latter is less than 10 mm in exten t. Conversely, the transit time and time to peak images are grossly abnormal throughout the MCA territory and its watershed regions on the right. RAPID DATA: CBF (<30%) volume: Less than 1.0 mL or none Perfusion (Tmax>6.0s) volume: 352.3 mL Mismatch Volume: 352.3 mL Mismatch Ratio: Infinite Of the affected volume, near ly half demonstrates a Tmax greater than 10 seconds (169.7). Please note, however, that t he rapid data overestimates the true volume as it is including a portion of the ventricle and periventricular white matter on the left as well which is entirely normal. IMPRESSION: 1. Normal CTA of the neck ap art from reduced contrast density in the right internal carotid artery resulting from distal occlusion. 2. A t-occlusion of the olivas tid terminus is present. Extension into the A1 [...] region of resulting mismatch. (All qualitative and quantit ative assessments of carotid bifurcation and proximal internal carotid artery stenosis are made referencing the distal internal carotid artery {NASCET criteria}.) Consultation Notes No Data Provided for This Section Discharge Summaries No Data Provided for This Section History and Physicals No Data Provided for This Section Vital Signs Vital Sign Value Date Comments Source Systolic (mm Hg) 123 12/26/2016 [facility] Diastolic (mm Hg) 57 12/26/2016 [facility] Respitory Rate 20 12/26/2016 [facility] Temperature Oral (F) 100.4 F 12/26/2016 [facility] Systolic (mm Hg) 116 12/26/2016 [facility] Diastolic (mm Hg) 63 12/26/2016 [facility] Respitory Rate 20 12/26/2016 [facility] Systolic (mm Hg) 127 12/26/2016 [facility] dical [place] Diastolic (mm Hg) 67 12/26/2016 [facility] Respitory Rate 20 12/26/2016 [facility] Temperature Oral (F) 99.5 F 12/26/2016 [facility] Temperature Oral (F) 99.9 F 12/26/2016 [facility] Heart Rate 55 12/25/2016 [facility] Weight 100 12/24/2016 [facility] Height 190.5 cm 12/24/2016 [facility] BMI Calculated 27.56 12/24/2016 [facility] Heart Rate 75 12/24/2016 [facility] Height 182.88 cm 12/24/2016 [facility] BMI Calculated 29.9 12/24/2016 [facility] Weight 100 12/24/2016 [facility] Heart Rate 78 12/24/2016 [facility] Encounters Location Location Encounter Encounter Reason Attending ADM DC Stat us Source Details Type Number For Provider Date Date Visit [facility] Inpatient [id number] Yue 12/24 12/26 [facility] Procedures Procedure Code Date Perfomer Comments Source Selective catheter 26007 12/24/2016 Rob as placement, common Medical carotid or innominate Nel[place] ter artery, unilateral, any approach, with angiography of the ipsilateral extracranial carotid circulation and all associated radiological supervision and interpretation, includes angiography of the c Selective catheter 49722 12/24/2016 Rob as placement, internal Medic al carotid artery, Center unilateral, with angiography of the ipsilateral intracranial carotid circulation and all associated radiological supervision and interpretation, includes angiography of the extracranial carotid and ce Primary percutaneous 28195 12/24/2016 [place] transluminal [facility] thrombectomy, noncoronary, non-intracranial, arterial or arterial bypass graft, including fluoroscopic guidance and intraprocedural pharmacological thrombolytic injection(s); initial vessel Inguinal herniotomy [id number] [facility] Manipulation of the [id number] [facility] Assessment and Plan Assessment and Plan Date Source Extracted from:Title: Clinical Document 12/26/2016 [facility] Author: Jazmin Kent MD Date: 12/26/16 [facility] NEUROLOGY DISCHARGE SUMMARY Date of Admission: 12/24/16 Date of Discharge: 12/26/16 Admit Diagnosis: right MCA stroke Discharge Diagnoses: right mca stroke Consults Obtained: none Brief HPI and Hospital Course: This is an 81 yo M with a hx of HTN, shadi b not on AC or aspirin, hernia repair [...] ent was taken for IAT and underwent thro mbectomy. Patient's symptoms improved afterwards. Patient was not intubated before or after the procedure. MRI brain showed Multifocal areas of diffusion res triction are seen within the right basal ganglia compatible with acute/subacute ischemic infarct. ECHO showed a moderately dilated LA, normal ejection fraction and no PFO. EKG was only significant for s inus bradycardia. Patient was restarted on half dose of home sotalolol( 40 mg daily). Patient was eventually transferred to [facility] stroke unit. He was assessed by PT [...] Ordered by: Leticia Herrera MD - 12/26/2016 09: 12 ciprofloxacin 250 mg oral tablet :250 mg , 1 tab, PO, Q12H, for 3 day, 6 tab, 0 Refill(s) Ordered by: Leticia Herrera MD - 12/26/2016 09: 12 Physical Therapy :See MELY Penaloza ONCALL, outpatient physical therapy Dx: right MCA stroke, 1 appl, 0 Refill(s) Ordered by: Jazmin Kent MD - 12/26/2016 09:09 Eliquis 5 mg oral tablet :5 mg, 1 tab, PO, BID, 60 tab, 3 Re fill(s) Ordered by: Jazmin Kent MD - 12/26/2016 09:06 atorvastatin 40 mg oral tablet :40 mg, 1 tab, PO, Bedtime, 3 0 tab, 3 Refill(s) Ordered by: Jazmin Kent MD - 12/26/2016 09:05 sotalol 80 mg oral tablet :40 mg, 0.5 tab, PO, Bedtime, 30 t ab, 3 Refill(s) Ordered by: Jazimn Kent MD - 12/26/2016 09:04 Follow up and Important Plans for Future Care: - Follow up with [facility] in 4-6 weeks, call [phone] for an appointment. - Follow up with your corporate director in 1-2 weeks. - Take all medications as prescribed. - Watch for bleeding since you are now o n a blood thinner, and seek medical attention for bleeding. - Use walker at all times to prevent falls. Jazmin Kent M.D Neurology PGY2 ID# [id number] Pager # [phone] STROKE ATTENDING I have seen and examined the patient. F david, I have discussed the case with and reviewed the resident's note and agree with the history, exam, assessment and plan. See note below for additi ons and/or exceptions and my findings. Exam is improved and he was noted to also be walking around the unit. Starting Eliquis today and stopping aspi rin. Understands importance of blood pressure control. Cleared from PT/OT with walker and family care, is very involved with the patient's care. Patient has neuropathy and has declined recomme nded use of walker as outpatient, we discussed the importance of using walker for stability to prevent falls while on Eliquis and he and his family demonstrated understanding of this. Regular diet thin liquids. Will need to follow up in stroke clinic in 4-6 weeks after discharge as well as corporate director and PCP (chronic kidney disease, HTN) I spent 35 minutes reviewing final imagi ng and laboratory workup, reconciling medications, examining the patient and preparing the patient for discharge. Note: called by pharmacy this after that cipro i nteracts with sotolol. Changed to microb id 7 days 100mg bid and patient has plan to f/u with PCP. [id number] Patient was discharged earlier than expe cted due to rapid improvement and completion of workup faster than anticipated. 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 911 was called [...] Bedtime 12/26/16 cefTRIAXone (Rocephin) 1 gm IVPB [id number] 12/24/16 docusate 100 mg PO Q12H 12/25/16 [...] 50% in Water IV (Dextrose 50% Syringe) 12. 5 gm IVP PRN 12/24/16 Dextrose 50% in Water IV (Dextrose 50% Syringe) 25 gm IVP PRN 12/24/16 glucagon 1 mg IM PRN 12/24/16 sodium chloride (Saline Flush 0.9%) 10 mL IVP PRN 01/25/17 sodium chloride (Saline Flush 0.9%) 10 ml IVP PRN One Time Meds (1): 12/24/16 (Completed) gabapentin (gabape ntin 400 mg oral capsule) 400 mg PO [...] 24 Hr Tmax: 99.9F (37.72c) at 12/26 03:1 3 Vital Signs are the last 5 in the past 48 hours. Physical Exam: HEAD - Normocephalic and atraumatic LUNGS - Clear to auscultation, no rales or rhonchi CVS - Rate rhythm regular, no murmur, equal pulses bilateral ly ABDOMEN - Soft, non tender, with normal bowel sounds. No hep atosplenomegaly NEUROLOGY: AAO*3 Speech: fluent, comprehension intact, repetition and naming intact compensation business partner: 2-12 intact Motor: Tone: Normal Power: 5/5 [...] No hemorrhage. 2. Imaging findings compatible with sile nt sinus syndrome on the left. Correlation for history of diplopia is recommended. CTA: 1. Normal CTA of the neck apart fro m reduced contrast density in the right internal [...] the head. 5.Abnormal perfusion to the right cerebr al hemisphere with essentially preserved cerebral blood volume. Large region of resulting mismatch. cerebral angiogram: 1. Right internal ca rotid artery : Right internal carotid artery injection revealed opacification of the right internal carotid artery with complete occlusion at the communicating s egment after the takeoff of the right po sterior communicating artery . There is evidence of perfusion deficit associated with the right hemisphere and both middle cerebral artery and anterior cerebral artery territory . ECHO: 1) Left ventricular size and systolic function is norm al. LV ejection fraction is estimated at 60%-65%. Normal left ventricular di astolic filling is observed. 2) Right ventricular is moderate to severely enlarged with n ormal systolic function. 3) Left atrium is moderately dilated and right atrium is sev erely dilated. 4) No evidence of patent foramen ovale demonstrated by salin e contrast study at rest, cough and with vasalva. 5) No significant valvular abnormality is seen. 6) Right ventricular systolic pressure was estimated at 21 m mHg assuming a right atrial pressure of 3 mmHg. 7) Aortic root is normal in size. 8) There is no pericardial effusion. 9) IVC is not well seen. 10) No prior study is available for comparison. Rehab Services: PT- home with family. Needs outpatient PT for falls risk. ST- diet Assessment: 1. Right internal carotid artery : Righ t internal carotid artery injection revealed opacification of the right internal carotid artery with complete occlusion at the communicating segment after the riaz eoff of the right posterior communicatin g artery . There is evidence of perfusion [...] pending Jazmin Kent M.D Neurology PGY2 ID# [id number] Pager # [phone] Extracted from:Title: Stroke Team H&P Author: Deidra Simpson PUBLIC RELATIONS ANALYST Date: 12/24/16 Stroke History and Physical Chief Complaint: R gaze, L Hemiparesis, History of Present Illness: 81 yo white male with pmh HTN, unknown arrhtymia, hernia repair 12/12/15 fully functional and independent at baseline LSN at 0830 when he walked to the bathroom, heard a commotion and checked on him and found h im at 0845 slumped to the side with BUSINESS TRANSFORMATION CONSULTANT, 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 911 was called [...] cramps LYMPH/IMMUNO: No lymph node enlargement/tenderness, no heat/ cold intolerance Past Medical History: HTN Past Surgical History: HErnia repair Family Medical History: unknown Social History: Denies alcohol and illic it drug use. Denies smoking. lives with , fully functional and independent Medications: occasional ASA, losartaan, sotalol Allergies:NKDA Physical Exam: GENERAL: Awake, alert in NAD HEENT: - Normocephalic and atraumatic, dry mm, no LN++, no T hyromegally LUNGS - Clear to auscultation bilaterally with [...] 1a. Level of Consciousness; 0-alert 1-drowsy 2-stupor 3-co ma 0 1b. LOC Questions month and age; 0-both 1-one 2-neithe r 0 1c. LOC Commands open/close eyes, cemetery keeper /release non-paretic hand; 0-both 1-one 2-neither 2 2. Best Gaze; 0-nl 1-partial 2-forced gaze 2 3. Visual [place]; 0-No visual loss. 1-Partial hemianop ia 2-Complete 3-Bilateral 2 4. Facial Palsy; 0-none 1-minor 2-partial 3-complete 0 5. Motor - R arm; 0-No drift 1-Drift 2 -Some antigravity 3-No antigravity 4- No movement 0 6. Motor - R leg; 0-No drift 1-Drift 2 -Some antigravity 3-No antigravity 4- No movement 4 7. Motor - L arm; 0-No drift 1-Drift 2 -Some antigravity 3-No antigravity 4- No movement 4 8. Motor - L leg; 0-No drift 1-Drift 2 -Some antigravity 3-No antigravity 4- No movement 0 9. Limb Ataxia; 0 absent 1 - 1limb 2 - 2 limbs 2 10. Sensory; 0-nl 1-partial loss 2-dense loss 0 11. Best Language; 0-nl 1-mild/mod 2-severe 3-mute 1 12. Dysarthria; 0-nl 1-mild/mod 2-severe x-untest able 2 13. Extinction and Inattention (formerly Neglect); 0-none 1-partial 2-complete TOTAL SCORE 19 EKG: [facility]: CT Head: By my read Aspects 9 (R insula) , no hemorrhag, hyperdense R carotid terminus CTA H&N: By y read, R carotid terminus p artial occlusion with partial recan of M1 and [...] Suspected Etiology: under investigation Continue Evaluation: Pending neuroimagin g evaluations, lab tests, monitor telemetry events, follow-up neuro imaging reports. Treatments: -Admit to: 7 J ICU -Start Aspirin 24hours post procedure (12/25 at 1200p) per Dr Shyla Gutierrez -BP perameters 130-[address] Jason -MRI/ECHO/A1C/Lipid panel. -Hyperglycemia management per SSI to maintain glucose 140-18 0mg/dL. 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 The patient was evaluated in the ED and escorted to CT. CT with hyperdense R MCA and CTA wi th R M1/2 occlsusion. Due to surgery < 14 days ago, and inability to talk to family (no answer to several attempts), the patient is not a tPA candidate ho wever, given the large vessel occlusion, he is a candidate for IAT. I discussed the case with the stroke attending who agreed. IA was activated and the ed was informed. The patient was taken to IAT as an emergent procedure. I spent a tot al of 113 ([id number]) minutes at the bedside evaluating the patient, reviewing data, discussing and coordinating the plan of care with the treatment teams and updating the patient on the plan of care [id number] First 31-74 minutes [id number] x2 ACUTE STROKE BENCHMARKS: TIME PT LAST [...] 1219 Addendum by Yue Zepeda MD on 12/24/2016 17:16 Stroke attending addendum: I have independently seen and examined t he patient today after transfer to the ICU post IAT (approximately 15:30-15:35) where I was able to discuss with the patient and his /brother the decision rich ing process, imaging, and likely etiolog y of stroke as well as the planned studies and therapies while inpatient. I have discussed the case with Deidra Simpson NP, regarding the decision not to give IV t PA in the setting of recent abdominal soto rgery as well as the decision to undergo IA thrombectomy given acceptable time window and favorable perfusion/CTB profile. 81yo male with HTN, now confirmed to als o have a history of atiral fibrillation (never been on anticoagulation), and hernia repair 12 days ago, who presented with R MCA syndrome, minimal early ischemic changes on CTB and perfusion mismatch wi th R MCA occlusion noted as hyperdense MCA sign on CTB, consistent with ischemic stroke, s/p thrombectomy. Not a candidate for IV tPA due to recent major surgery at noncompressible site <14 days ago. Exam: On my exam he is alert and oriente d, fluent, following commands, no apparent neglect. EOMI, mild left facial droop, mild dysarthria. No drift B/l UE. LLE limited by recent groin punture but RLE is intact and he is able to wiggle toes on left. Impression: R MCA ischemic stroke s/p soto ccessful thrombectomy, likely 2/2 atrial fibrillation, pending further workup. Plan: -Patient is admitted to ICU for close neuro monitoring and v s checks -HOB flat, NS at 75cc/hour -Aspirin 325mg PO daily for now -MRI brain to eval large territory infar ct or HT and consider bridging aspirin to anticoagulation. Will discuss anticoagulation options with family. -Statin -SBP goal 120-150 -TTE -Lipid panel -Hemoglobin A1c -Subcut heparin -PT/OT/ST -Will need f/u with corporate director and also now with str sony team after discharge. NPP documented full note. [id number] Plan of Care No Data Provided for This Section Social History Social History Date Source Social History TypeResponse 12/24/2016 [facility] Smoking Status Never smoker; Ready to change: No; Yee rns about tobacco use in household: No; Exposure to Tobacco Smoke None; Cigarette Smoking Last 365 Days No; Reg Smoking Cessation Counseling No Family History No Data Provided for This Section Advance Directives No Data Provided for This Section Functional Status No Data Provided for This Section
[2020-04-25 11:37] LABS: Absolute Lymphocytes (CBC) 1.2 K/uL (0.7-4.9); Basophils % 1.1 % (0-1.3); Hematocrit 44.1 % (39.6-49.0); Lymphocytes % 22.5 % (15.3-44.8); MPV 9.3 fL (7.6-11.3); RBC Red Blood Cell Count 4.96 M/uL (4.33-5.43)
[2020-04-25 12:01] LABS: Potassium 4.5 mmol/L (3.5-5.1)
--- NOTE | 2020-04-25 12:12 | RAD REPORT ---
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 COMPARISON: Abdomen 1 View (KUB) dated 02/07/2019; Abdomen 1 View (KUB) dated 02/01/2019; Chest Single View dated 02/01/2019; Chest Pa And Lat (2 Views) dated 01/28/2019 TECHNIQUE: PA and lateral views of the chest were obtained. FINDINGS: The lungs are hyperexpanded compatible with COPD. The heart is upper limit of normal in si ze. No fracture or aggressive bony process. IMPRESSION: COPD without acute process identified.
[2020-04-25 12:14] LABS: Protime INR 1.13
[2020-05-01] MEDS ORDERED: HEPA 1000U/500MLS 1,000 UNIT/500 ML BAG IV ONE (06:44)
[2020-05-01] MEDS ORDERED: LIDOCAINE 1% 20 ML MDV ONE (06:44)
[2020-05-01] MEDS ORDERED: FENTANYL CITR 100 MCG/2 ML ONE (06:48)
[2020-05-01] MEDS ORDERED: MIDAZOLAM HCL 2 MG/2 ML INJ ONE (06:48)
[2020-05-01] MEDS ORDERED: NA CHLORIDE 0.9% 0 ML ONE (06:48)
[2020-05-01] MEDS ORDERED: ATROPINE SULF 1 MG/10 ML SYR IV ONE (06:48)
--- OUTSIDE RECORDS SUMMARY | 2020-05-01 06:50 | XMS REPORT | Continuity of Care Document ---
:1935 Author Organization [employer] Care Team Providers Name Role Phone [employer] Unavailable Un available Problems Problem Status Onset Classification Date Comments Sourc e Date Reported STROKE Active 12/24/[address] LF Active 12/24/[address] Hyperlipidemia Resolved Problem 12/29/2016 [place] ([place]order[place] [facility] Hypertensive Resolved Problem 12/29/2016 Rob as disorder, Medical systemic arterial Ce nter (disorder) CEREBRAL Active [facility] INFARCTION, Medical UNSPECIFIED Center Medications Medication Details Route Status Patient Ordering Order Source Instructions Provider Date Hydrochlorothiazide 1 tab, PO, Inactive 12/26[facility] 12.5 MG / Losartan Daily, 0 2017 [facility] agnieszka Potassium 100 MG Refill(s) Cente r Oral Tablet Eliquis Notes: Same as: Inactive 12/26[facility] Roba s Eliquis 2017 [facility] ciprofloxacin 250 250 mg = 1 tab, Active 12/26[facility] [place] mg oral tablet PO, Q12H, X 3 2017 Med ical day, # 6 tab, 0 Center Refill(s) Occupational See Active 12/26[facility] Graciela Therapy Instructions, 2017 [facility] Evaluate and Treat DX: R MCA ischemic stroke, # 1 appl, 0 Refill(s) Physical Therapy See Active 12/26[facility] Danielle s Instructions, 2017 [facility] outpatient physical therapy Dx: right MCA stroke, # 1 appl, 0 Refill(s) apixaban 5 MG Oral 5 mg = 1 tab, Active 12/26[facility] [place] Tablet [Eliquis] PO, BID, # 60 2017 M edical tab, 3 Center Refill(s) ciprofloxacin 250 250 mg = 1 tab, Inactive 12/26 [facility] [place] mg oral tablet PO, Q12H, X 10 2017 Me dical day, # 20 tab, Center 0 Refill(s) atorvastatin 40 mg 40 mg = 1 tab, Active 12/26[facility] [place] oral tablet PO, Bedtime, # 2017 Medic al 30 tab, 3 Center Refill(s) sotalol 80 mg oral 40 mg = 0.5 Active H [place] tablet tab, PO, 2017 Medical Bedtime, # 30 Center tab, 3 Refill(s) Rocephin Notes: (Same Inactive [place] As: Rocephin). 2017 Medical Use with 100 mL Center NS and infuse over 30 min MEDICATION WASTE Product Size: 1000 mg Product Wasted: ___ mg Sotalol 40 mg, Route: Inactive [place] Hydrochloride 80 MG PO, Q12H, 2017 Me dical Oral Tablet Dosing Weight Center 100, kg, Start date: 12/25/16 21:00:00 ARCHITECT MANAGER, Duration: 30 day, Stop date: 01/24/17 9:00:00 ARCHITECT MANAGER sotalol Notes: (Same No Longer [place] As: Betapace) Active 2016 Medical 40 mg = 1/2 x Center 80 mg TAB pneumococcal Notes: (Same Inactive [place] 13-valent vaccine as: Prevnar 13) 2017 [facility] gabapentin 400 MG Notes: (Same No Longer [place] Oral Capsule as: Neurontin) Active 2017 [facility] Aspirin 325 MG Notes: (Do Not No Longer [place] Enteric Coated Crush) Do not Active 2016 [place] dical Tablet crush or chew. Center Streptococcus Notes: (Same Inactive [facility] [place] pneumoniae serotype as: Prevnar 13) 2017 [facility] 1 capsular antigen Cente r diphtheria [id number] protein conjugate vaccine / Streptococcus pneumoniae serotype 14 capsular antigen diphtheria [id number] protein conjugate vaccine / Streptococcus pneumoniae serotype 18C capsular antigen d gabapentin 400 MG Notes: (Same No Longer [facility] Oral Capsule as: Neurontin) Active 2017 [facility] Saline Flush 0.9% Notes: (Same No Longer [facility] as: BD Active 2016 [facility] Posiflush) Center Docusate Notes: (Same No Longer [facility] as: Colace) (Do Active 2016 [facility] Not Crush) Center atorvastatin Notes: (Same No Longer [place] as: Lipitor) Active 2017 Medical Center pneumococcal Notes: (Same No Longer [facility] [place] 13-valent vaccine as: Prevnar 13) Active 2017 Medical Center sennosides, LONG-TERM Notes: (Same No Longer [place] as: Senokot) Active 2017 Medical Center heparin sodium, Notes: porcine No Longer [place] porcine 2500 UNT/ML heparin Active 2016 [facility] agnieszka Injectable Solution Cent er Dextrose 50% 25 gm, 50 mL, No Longer [place] Syringe Route: IVP, Active 2016 Medical Drug Form: INJ, Center Dosing Weight 100, kg, PRN, PRN Blood Glucose Results, Start date: 12/24/16 15:18:00 ARCHITECT MANAGER, Duration: 30 day, Stop date: 01/23/17 15:17:00 ARCHITECT MANAGER Glucagon 1 mg, Route: No Longer [place] IM, Drug form: Active 2016 Medical PDR/INJ, PRN, Center Dosing Weight 100, kg, PRN Blood Glucose Results, Start date: 12/24/16 15:18:00 ARCHITECT MANAGER, Duration: 30 day, Stop date: 01/23/17 15:17:00 ARCHITECT MANAGER sodium phosphate + 30 mmol, 10 mL, No Longer [place] sodium chloride Route: IVPB, Active 2016 Med ical 0.9% INJ 250 mL PRN, Dosing Cent er Weight 100, kg, PRN Abnormal Lab Result, Start date: 12/24/16 15:18:00 ARCHITECT MANAGER, Duration: 30 day, Stop date: 01/23/17 15:17:00 ARCHITECT MANAGER, FOR ICU USE ONLY potassium chloride Notes: (Same No Longer [place] as: KCL) Active 2016 Medical Infuse over 2 Center hours. Calcium Gluconate Notes: WASTE: No Longer [place] F/P - Sink; E - Active [address] [facility] Trash [place] Bin Calcium Carbonate Notes: (Same No Longer [place] 500 MG Chewable As: Tums) Active 2016 Medica l Tablet Calcium Center Carbonate 500 mg = 200 mg elemental calcium Dose = mg calcium carbonate ( mg elemental calcium) Magnesium Oxide Notes: (Same No Longer H [place] as: Mag-Ox 400) Active 2016 [facility] Magnesium oxide Center [id number] elemental magnesium Dose=____mg magnesium oxide (___mg elemental magnesium) potassium phosphate Notes: (Same No Longer 12/24 [place] + sodium chloride as: K Active 2016 [...] F/P - Sink; E - Active [address] [facility] Trash Center Bin sotalol 80 mg [...] Total Volume: 1,000, Start date: 12/24/16 14:56:00 ARCHITECT MANAGER, Duration: 30 day, Stop date: 01/23/17 14:55:00 ARCHITECT MANAGER Flumazenil 0.2 mg, Route: Inactive [place] IVP, PRN, 2016 Medical Dosing Weight Center 100, kg, PRN Benzodiazepine Reversal, Initial dose, Start date: 12/24/16 12:56:00 ARCHITECT MANAGER, Duration: 30 day, Stop date: 01/23/17 12:55:00 ARCHITECT MANAGER Naloxone 0.4 mg, Route: Inactive [place] IVP, Q2MIN, 2016 Medical Dosing Weight Center 100, kg, PRN Narcotic Reversal, Start date: 12/24/16 12:56:00 ARCHITECT MANAGER, Duration: 8 doses or times, Stop date: Limited # of times Ondansetron 4 mg, Route: Inactive [place] IVP, ONCE, 2016 Medical Dosing Weight Center 100, kg, PRN Nausea & Vomiting, Start date: 12/24/16 12:56:00 ARCHITECT MANAGER Hydromorphone 0.5 mg, Route: Inactive [place] IVP, Q5Min, 2016 Medical Dosing Weight Center 100, kg, PRN Pain Score 7-10, Start date: 12/24/16 12:56:00 ARCHITECT MANAGER, Duration: 4 doses or times, Stop date: Limited # of times Hydralazine 10 mg, Route: Inactive [place] IVP, Q20Min, 2016 Medical Dosing Weight Center 100, kg, PRN Elevated BP, Start date: 12/24/16 12:56:00 ARCHITECT MANAGER, Duration: 2 doses or times, Stop date: Limited # of times Labetalol 10 mg, Route: Inactive [place] IVP, Q5Min, 2016 Medical Dosing Weight Center 100, kg, PRN Elevated BP, Start date: 12/24/16 12:56:00 ARCHITECT MANAGER, Duration: 5 doses or times, Stop date: Limited # of times Saline Flush 0.9% Notes: (Same No Longer [place] as: BD Active 2016 Medical Posiflush) Center Sodium Chloride 1,000 mL, Rate: No Longer Graciel[place] 0.154 MEQ/ML 75 ml/hr, Active 2016 Medical Injectable Solution Infuse over: Center 13.3 hr, Route: IV, Dosing Weight 100 kg, Total Volume: 1,000, Start date: 12/24/16 12:28:00 ARCHITECT MANAGER, Duration: 30 day, Stop date: 01/23/17 12:27:00 ARCHITECT MANAGER Omnipaque 300 150 ml, Route: Inactive 12/24[facility] Graciela INTRAARTERIAL, 2016 Medical Dosing Weight Center 100, kg, ONCE, Start date: 12/24/16 11:54:00 ARCHITECT MANAGER, Stop date: 12/24/16 11:54:00 ARCHITECT MANAGER iodixanol 100 mL, Route: Inactive [place] as IVP, Drug Form: 2017 Medical SOLN, Dosing Center Weight 100, kg, ONCALL, STAT, Start date: 12/24/16 11:29:00 ARCHITECT MANAGER, Duration: 1 doses or times, Dose = 2.2ml/kg, Max dose = 100ml -- "To be infused by Radiology Staff ONLY" Saline Flush 0.9% Notes: (Same No Longer [facility] as: BD Active 2017 Medical Posiflush) Center Allergies, Adverse Reactions, Alerts No Known Medication Allergies Immunizations Immunization Date Given Site Status Last Comments Source Updated pneumococcal 12/25/2016 Left completed Vishal Rob as 13-valent vaccine deltoid Me dical Center Results Order Name Results Value Reference Date Interpretation Comments Janet rce Range CHEM PANEL Phosphorus 2.5 2.5 - 4.5 12/26 [facility] CHEM PANEL eGFR 58 12/26 Result [...] PANEL BUN 17 7 - 22 12/26 [facility] CHEM PANEL Glucose Lvl 95 70 - 99 12/26 [facility] CHEM PANEL Potassium Lvl 3.7 3.5 - 5.1 12/26 [place] [facility] CHEM PANEL Sodium Lvl 142 135 - 145 12/26 [facility] CHEM PANEL Creatinine 1.17 0.50 - 12/26 [facility] Lvl 1.40 [facility] CHEM PANEL CO2 27 24 - 32 12/26 [facility] CHEM PANEL Chloride Lvl 108 95 - 109 12/26 [place] [facility] CHEM PANEL Calcium Lvl 8.4 8.5 - 10.5 12/26 Rob as [facility] CHEM PANEL AGAP 10.7 10.0 - 12/26 [facility] 20.0 [facility] CHEM PANEL Magnesium Lvl 2.2 1.8 - 2.4 12/26 [facility] HEMATOLOGY Lymphocytes # 1.1 1.0 - 5.5 12/26 [facility] HEMATOLOGY Segs-Bands # 6.9 1.5 - 8.1 12/26 [facility] HEMATOLOGY Eosinophils # 0.2 0.0 - 0.5 12/26 [facility] HEMATOLOGY Basophils # 0.1 0.0 - 0.2 12/26 [facility] HEMATOLOGY Monocytes # 0.6 0.0 - 0.8 12/26 [facility] HEMATOLOGY Basophils 0.7 0.0 - 1.0 12/26 [facility] HEMATOLOGY Segs 77.6 45.0 - 12/26 [place] 75.0 [facility] HEMATOLOGY Monocytes 7.1 2.0 - 12.0 12/26 [facility] HEMATOLOGY Eosinophils 1.9 0.0 - 4.0 12/26 [facility] HEMATOLOGY Lymphocytes 12.7 20.0 - 12/26 [place] 40.0 [facility] HEMATOLOGY MPV 9.1 7.4 - 10.4 12/26 [facility] HEMATOLOGY Platelet 108 133 - 450 12/26 [facility] HEMATOLOGY RDW 13.8 11.5 - 12/26 [place] 14.5 [facility] HEMATOLOGY WBC 8.9 3.7 - 10.4 12/26 [facility] HEMATOLOGY RBC 4.84 4.70 - 12/26 [place] 6.10 [facility] HEMATOLOGY Hct 43.3 42.0 - 12/26 [place] 54.0 [facility] HEMATOLOGY MCH 30.0 27.0 - 12/26 [place] 31.0 [facility] HEMATOLOGY Hgb 14.5 14.0 - 12/26 [place] 18.0 [facility] HEMATOLOGY MCHC 33.6 32.0 - 12/26 [place] 36.0 [facility] HEMATOLOGY MCV 89.4 80.0 - 12/26 [place] 94.0 [facility] PARATHYROID Ca Norm WB 1.15 1.05 - 12/26 [place] PROFILE 1.25 [facility] PARATHYROID Ca Ion WB 1.19 1.05 - 12/26 [place] PROFILE 1.25 [facility] URINE AND UA Mucus Few /LPF None Seen 12/26 [facility] STOOL /LPF /2016 [facility] URINE AND UA Sq Epi None Seen 12/26 [facility] URINE AND UA <=1.0 0.1 - 1.0 12/26 [facility] Urobilinogen mg/dL [facility] URINE AND UA Bacteria Occasional None Seen 12/26 [place] STOOL /HPF /HPF [facility] URINE AND UA RBC 1 0 - 2 12/26 [facility] URINE AND UA Nitrite Negative Negative 12/26 [facility] (12/25/16 6:01 PM) [facility] URINE AND UA WBC 9 0 - 5 12/26 [facility] URINE AND UA Leuk Est Large Negative 12/26 [facility] *ABN* [facility] (12/25/16 6:01 PM) [place] URINE AND UA Blood Negative Negative 12/26 [facility] (12/25/16 6:01 PM) [facility] URINE AND UA Bili Negative Negative 12/26 [facility] *NA* /2016 [facility] (12/25/16 6:01 PM) [place] URINE AND UA Ketones Negative Negative 12/26 [facility] mg/dL mg/dL [facility] URINE AND UA pH 6.0 5.0 - 8.0 12/26 [facility] URINE AND UA Glucose Negative Negative 12/26 [facility] mg/dL mg/dL [facility] URINE AND UA Protein Negative Negative 12/26 [facility] mg/dL mg/dL [facility] URINE AND UA Turbidity Clear Clear 12/26 [facility] (12/25/16 6:01 PM) [facility] URINE AND UA Color Yellow Yellow 12/26 [facility] *NA* [facility] (12/25/16 6:01 PM) [place] URINE AND UA Spec Grav 1.012 <=1.030 12/26 [facility] [address] [place] [address] BACTERIAL - MRSA by PCR Negative 12/25 [place] [facility] (12/25/16 1:53 PM) /2016 [facility] CHEM PANEL eGFR 66 12/25 Result Comment: [...] Calcium Lvl 8.6 8.5 - 10.5 12/25 [facility] CHEM PANEL AGAP 13.0 10.0 - 12/25 [facility] CHEM PANEL Potassium Lvl 4.0 3.5 - 5.1 12/25 [place] [facility] CHEM PANEL Chloride Lvl 109 95 - 109 12/25 [facility] CHEM PANEL CO2 24 24 - 32 12/25 2016 [facility] CHEM PANEL Creatinine 1.05 0.50 - 12/25 [facility] Lvl 1.40 [facility] CHEM PANEL BUN 14 7 - 22 12/25 2016 [facility] CHEM PANEL Sodium Lvl 142 135 - 145 12/25 [facility] CHEM PANEL Glucose Lvl 107 70 - 99 12/25 2016 [facility] CHEM PANEL Phosphorus 2.4 2.5 - 4.5 12/25 2016 [facility] CHEM PANEL Globulin 3.0 2.7 - 4.2 12/25 2016 [facility] CHEM PANEL A/G Ratio 1.0 0.7 - 1.6 12/25 [facility] CHEM PANEL AGAP 10.4 10.0 - 12/25 [facility] CHEM PANEL B/C Ratio 20 6 - 25 12/25 2016 [facility] CHEM PANEL eGFR 62 12/25 [facility] Comment: The Medical eGFR is [...] PANEL CO2 24 24 - 32 12/[address] CHEM PANEL Total Protein 5.9 6.4 - 8.4 12/25 [facility] CHEM PANEL Calcium Lvl 7.9 8.5 - 10.5 12/25 [facility] CHEM PANEL AST 12 0 - 37 12/[address] CHEM PANEL ALT 15 0 - 65 12/[address] CHEM PANEL Alk Phos 51 39 - 136 12/[address] CHEM PANEL Albumin Lvl 2.9 3.5 - 5.0 12/25 [facility] CHEM PANEL Bili Total 0.8 0.2 - 1.3 12/[address] CHEM PANEL Glucose Lvl 117 70 - 99 12/[address] CHEM PANEL BUN 22 7 - 22 12/[address] CHEM PANEL Creatinine 1.11 0.50 - 12/25 [facility] Lvl 1.40 [facility] CHEM PANEL Sodium Lvl 138 135 - 145 12/[address] CHEM PANEL Potassium Lvl 3.4 3.5 - 5.1 12/[address] CHEM PANEL Chloride Lvl 107 95 - 109 12/[address] CHEM PANEL Phosphorus 2.1 2.5 - 4.5 12/[address] CHEM PANEL Magnesium Lvl 2.2 1.8 - 2.4 12/25 [facility] HEMATOLOGY Basophils # 0.1 0.0 - 0.2 12/25 [facility] HEMATOLOGY Eosinophils # 0.2 0.0 - 0.5 12/25 [facility] HEMATOLOGY Monocytes # 0.7 0.0 - 0.8 12/25 [facility] HEMATOLOGY Lymphocytes # 1.5 1.0 - 5.5 12/25 [facility] HEMATOLOGY Eosinophils 2.4 0.0 - 4.0 12/25 [facility] HEMATOLOGY Monocytes 6.8 2.0 - 12.0 12/25 [facility] HEMATOLOGY Segs-Bands # 7.7 1.5 - 8.1 12/25 [facility] HEMATOLOGY Basophils 1.1 0.0 - 1.0 12/25 [facility] HEMATOLOGY Segs 74.9 45.0 - 12/25 [place] 75.0 [facility] HEMATOLOGY Lymphocytes 14.8 20.0 - 12/25 [place] 40.0 [facility] HEMATOLOGY MCHC 34.9 32.0 - 12/25 [place] 36.0 [facility] HEMATOLOGY MCH 30.8 27.0 - 12/25 [place] 31.0 [facility] HEMATOLOGY Platelet 128 133 - 450 12/25 [facility] HEMATOLOGY RDW 14.1 11.5 - 12/25 [place] 14.5 [facility] HEMATOLOGY RBC 4.74 4.70 - 12/25 [place] 6.10 [facility] HEMATOLOGY WBC 10.3 3.7 - 10.4 12/25 [facility] HEMATOLOGY MPV 9.3 7.4 - 10.4 12/25 [facility] HEMATOLOGY Hgb 14.6 14.0 - 12/25 [place] 18.0 [facility] HEMATOLOGY MCV 88.3 80.0 - 12/25 [place] 94.0 [facility] HEMATOLOGY Hct 41.8 42.0 - 12/25 [place] 54.0 [facility] PARATHYROID Ca Ion WB 1.16 1. - 12/25 [place] PROFILE 1. [facility] PARATHYROID Ca Norm WB 1.17 1.05 - 12/25 [place] PROFILE 1. [facility] CHEM PANEL Bili Direct 0.2 0.0 - 0.3 12/24 a [facility] CHEM PANEL Alk Phos 51 39 - 136 12/24 [facility] CHEM PANEL Bili Total 1.0 0.2 - 1.3 12/24 [facility] CHEM PANEL ALT 12 0 - 65 12/24 [facility] CHEM PANEL AST 13 0 - 37 12/24 [facility] CHEM PANEL Albumin Lvl 3.1 3.5 - 5.0 12/24 [place] [facility] CHEM PANEL Total Protein 6.2 6.4 - 8.4 12/24 [facility] CHEM PANEL Globulin 3.1 2.7 - 4.2 12/24 [facility] CHEM PANEL A/G Ratio 1.0 0.7 - 1.6 12/24 [facility] CHEM PANEL Bili Indirect 0.8 0.0 - 1.0 12/24 [facility] LIPIDS CHD Risk 2.65 4.00 - 12/24 [place] 7.30 [facility] LIPIDS HDL 52 >=61 mg/dL 12/24 [facility] LIPIDS Chol 138 <=199 12/24 [facility] mg/dL [facility] LIPIDS VLDL 12 12/24 [facility] LIPIDS Trig 59 <=149 12/24 [facility] mg/dL [facility] LIPIDS LDL 74 <=99 mg/dL 12/24 [facility] (Calculated) [facility] SPECIAL Hgb A1C 5.1 <=5.6 % 12/24 [facility] CHEMISTRY [facility] BLOOD BANK ABO/Rh A POS 12/24 [facility] RESULTS [facility] BLOOD BANK Antibody Scrn Negative 12/24 [facility] as RESULTS (12/24/16 11:20 AM) /2016 [facility] al Center CHEM PANEL POC 1.1 0.5 - 1.4 12/24 [facility] Creatinine [facility] CARDIAC Troponin-I <0.02 0.00 - 12/24 [facility] ENZYMES 0.40 [facility] CARDIAC CK MB <0.5 0.5 - 3.6 12/24 [facility] ENZYMES [facility] CARDIAC Total CK 36 12 - 191 12/24 [facility] ENZYMES [facility] CARDIAC CK-MB INDEX <1.4 0.0 - 2.5 12/24 ENZYMES [facility] HEMATOLOGY PT 14.9 12.0 - 12/24 14.7 [facility] HEMATOLOGY INR 1.15 0.85 - 12/24 [place] 1.17 [facility] HEMATOLOGY PTT 32.1 22.9 - 12/24 [place] 35.8 /2016 [facility] HEMATOLOGY MCV 89.5 80.0 - 12/24 [place] 94.0 [facility] HEMATOLOGY RDW 14.1 11.5 - 12/24 [place] 14.5 [facility] HEMATOLOGY MCHC 33.6 32.0 - 12/24 [place] 36.0 [facility] HEMATOLOGY MCH 30.1 27.0 - 12/24 [place] 31.0 [facility] HEMATOLOGY MPV 8.6 7.4 - 10.4 12/24 [facility] HEMATOLOGY Platelet 127 133 - 450 12/24 [facility] HEMATOLOGY Hct 41.7 42.0 - 12/24 54.0 [facility] HEMATOLOGY Hgb 14.0 14.0 - 12/24 [place] 18.0 [facility] HEMATOLOGY RBC 4.65 4.70 - 12/24 [place] 6.10 [facility] HEMATOLOGY WBC 9.3 3.7 - 10.4 12/24 [facility] HEMATOLOGY Monocytes 5.3 2.0 - 12.0 12/24 [facility] HEMATOLOGY Eosinophils 2.8 0.0 - 4.0 12/24 [facility] HEMATOLOGY Basophils 0.8 0.0 - 1.0 12/24 [facility] HEMATOLOGY Lymphocytes 11.1 20.0 - 12/24 [place] 40.0 2017 [facility] HEMATOLOGY Eosinophils # 0.3 0.0 - 0.5 12/24 [facility] HEMATOLOGY Basophils # 0.1 0.0 - 0.2 12/24 [facility] HEMATOLOGY Segs-Bands # 7.4 1.5 - 8.1 12/24 [facility] HEMATOLOGY Lymphocytes # 1.0 1.0 - 5.5 12/24 [facility] HEMATOLOGY Monocytes # 0.5 0.0 - 0.8 12/24 [facility] HEMATOLOGY Segs 80.0 45.0 - 12/24 [facility] 75.0 2017 [facility] Center Pathology Reports No Data Provided for This Section Diagnostic Reports Report Value Date Source Brain wo contrast MRI EXAM: MRI BRAIN WITHOUT CONTRAST 7 [facility] DATE: 12/24/2016 12:28 [address] MANAGER Nelida [address] INDICATION: 81 years old Mal [...] DX EXAM: XR CHEST 1 VIEW 12/24/2016 [facility] edical DATE: 12/24/2016 11:08 AM [address]CHITECT MANAGER Nelida ter INDICATION: CVA COMPARISON: None TECHNIQUE: AP chest FINDINGS: There is left basilar atelec tasis versus scarring. Rest of the lungs are clear. No pleural effusions or pneumothorax. Cardiomediastinal silhouette is normal limits. No acute osseous abnormality. Soft tissues are within normal limits. IMPRESSION: Left basilar atelectasis versus sca rring. Angiogram cervical EMERGENT CEREBRAL REVASCULARIZATION 7 [facility] bilateral [facility] DATE: 12/24/2016 11:31 AM ARCHITECT MANAGER HISTORY:81 years Male wit h acute onset [...] administered by the anesthesia team with the cafe team member present. The patient's systolic arterial blood p ressure was kept between 140 - 180 mmHg. The groin was prepped and draped in the usual sterile fashion. The Left common femoral artery was accessed by using singlewall micropuncture technique and an 9 Fr [employer] Cordis sheath was place d. Under fluoroscopic and roadmap guidance, A 5 Taiwanese Long Vert guide catheter coaxially advanced with a 0.035 ' [employer] Glidewire telescoped within an 8 [place]ese Balloon guide catheter to select the Righ [...] wo EXAM: CT BRAIN WITHOUT CONTRAST 12/24/2016 [facility] Medical contrast CT DATE: 12/24/2016 11:05 AM ARCHITECT MANAGER Nelida ter INDICATION: Acute cognitive change COMPARISON: [...] EXAM: CT ANGIOGRAM OF THE BRAIN 12/24/2016 [facility] Medical perfusion CTA EXAM: CT ANGIOGRAM OF THE NECK C enter EXAM: CT PERFUSION OF THE BRAIN DATE: 12/24/2016 11:11 AM ARCHITECT MANAGER INDICATION: Acute cognitive change COMPARISON: Contemporaneous [...] Comments Source Systolic (mm Hg) 123 12/26/[address] [facility] Diastolic (mm Hg) 57 12/26/2016 [facility] Respitory Rate 20 12/26/2016 [facility] Temperature Oral (F) 100.4 F 12/26/2016 [facility] Systolic (mm Hg) 116 12/26/[address] [facility] Diastolic (mm Hg) 63 12/26/2016 [facility] Respitory Rate 20 12/26/2016 [facility] Systolic (mm Hg) 127 12/26/2016 [facility] [place] Diastolic (mm Hg) 67 12/26/2016 [facility] Respitory Rate 20 12/26/2016 [facility] Temperature Oral (F) 99.5 F 12/26/2016 [facility] Temperature Oral (F) 99.9 F 12/26/2016 [facility] Heart Rate 55 12/25/2016 [facility] Weight 100 12/24/2016 [facility] Height 190.5 cm 12/24/2016 [facility] BMI Calculated 27.56 12/24/2016 [facility] Heart Rate 75 12/24/2016 [facility] Height 182.88 cm 12/24/2016 [facility] BMI Calculated 29.9 12/24/2016 [facility] Weight 100 12/24/2016 [facility] Heart Rate 78 12/24/2016 [facility] Encounters Location Location Encounter Encounter Reason Attending ADM DC Stat us Source Details Type Number For Provider Date Date Visit [facility] Inpatient [id number] Yue 12/24 12/26 [facility] Procedures Procedure Code Date Perfomer Comments Source Selective catheter 87802 12/24/2016 Rob as placement, common Medical carotid or innominate Nel[place] ter artery, unilateral, any approach, with angiography of the ipsilateral extracranial carotid circulation and all associated radiological supervision and interpretation, includes angiography of the c Selective catheter 61181 12/24/2016 Rob as placement, internal Medic al carotid artery, Center unilateral, with angiography of the ipsilateral intracranial carotid circulation and all associated radiological supervision and interpretation, includes angiography of the extracranial carotid and ce Primary percutaneous 75060 12/24/2016 [place] [facility]um[place] [facility] thrombectomy, noncoronary, non-intracranial, arterial or arterial bypass graft, including fluoroscopic guidance and intraprocedural pharmacological thrombolytic injection(s); initial vessel Inguinal herniotomy [id number] [facility] Manipulation of the [id number] [facility] Assessment and Plan Assessment and Plan Date Source Extracted from:Title: Clinical Document 12/26/2016 [facility] Author: Jazmin Kent MD Date: 12/26/16 [facility] DIS[facility] SUMMARY Date of Admission: 12/24/16 [...] mg daily). Patient was eventually transferred to [facility] stroke unit. He was assessed by PT [...] 30 t ab, 3 Refill(s) Ordered by: Jazmin Kent MD - 12/26/2016 09:04 Follow up and Important Plans for Future Care: - Follow up with [facility] in 4-6 weeks, call [phone] for an appointment. - Follow up with your medical billing manager in 1-2 weeks. - Take all medications as prescribed. - Watch for bleeding since you are now o n a blood thinner, and seek medical attention for bleeding. - Use walker at all times to prevent falls. Jazmin Kent M.D Neurology PGY2 ID# [id number] Pager # [phone] STROKE ATTENDING I have seen and examined [...] 4-6 weeks after discharge as well as medical billing manager and PCP (chronic kidney disease, HTN) I spent 35 minutes reviewing final imagi ng and laboratory workup, reconciling medications, examining the patient and preparing the patient for discharge. Note: called by pharmacy this after that cipro i nteracts with sotolol. Changed to microb id 7 days 100mg bid and patient has plan to f/u with PCP. [id number] Patient was discharged earlier than expe cted due to rapid improvement and completion of workup faster than anticipated. 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 911 was called [...] Bedtime 12/26/16 cefTRIAXone (Rocephin) 1 gm IVPB [id number] 12/24/16 docusate 100 mg PO Q12H 12/25/16 [...] fluent, comprehension intact, repetition and naming intact precision dancer: 2-12 intact Motor: Tone: Normal Power: 5/5 [...] pending Jazmin Kent M.D Neurology PGY2 ID# [id number] Pager # [phone] Extracted from:Title: Stroke Team H&P Author: Deidra Simpson FANS CLERK Date: 12/24/16 Stroke History and Physical Chief Complaint: R gaze, L Hemiparesis, History of Present Illness: 81 yo white male with pmh HTN, unknown arrhtymia, hernia repair 12/12/15 fully functional and independent at baseline LSN at 0830 when he walked to the bathroom, heard a commotion and checked on him and found h im at 0845 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 911 was called [...] r 0 1c. LOC Commands open/close eyes, sample hand /release non-paretic hand; 0-both 1-one 2-neither 2 [...] skin THE FOLLOWING WERE PRESENT ON ADMISSION: DIRECTOR OF ENTERPRISE APPLICATIONS - Acute ischemic strokeHemiparesis or Hemiplegia, Cardiovascular [...] I spent a tot al of 113 ([phone]) minutes at the bedside evaluating the patient, reviewing data, discussing and coordinating the plan of care with the treatment teams and updating the patient on the plan of care [id number] First 31-74 minutes [id number] x2 ACUTE STROKE BENCHMARKS: TIME PT LAST [...] -Subcut heparin -PT/OT/ST -Will need f/u with medical billing manager and also now with str sony team after discharge. NPP documented full note. [id number] Plan of Care No Data Provided for This Section Social History Social History Date Source Social History TypeResponse 12/24/2016 [facility] Smoking Status Never smoker; Ready to change: No; Yee rns about tobacco use in household: No; Exposure to Tobacco Smoke None; Cigarette Smoking Last 365 Days No; Reg Smoking Cessation Counseling No Family History No Data Provided for This Section Advance Directives No Data Provided for This Section Functional Status No Data Provided for This Section
[2020-05-01] MEDS ORDERED: NA CHLORIDE 0.9% 500 ML ONE (07:01)
--- NOTE | 2020-05-01 09:30 | OP ---
Surgeon: Noah Oswald MD [employer]: Indra Arechiga. Procedure: The patient admitted as an outpatient on 05/01/2020 to the labor and employment paralegal for a heart catheteri zation with selective coronary arteriogram. Indication: Chest pain and positive stress test. The patient is 84. Procedure In Detail: He was brought to the labor and employment paralegal and prepped and draped in the routine sterile fa shion. He was given Versed and fentanyl for sedation. Right femoral artery access was obtained with a 6-Namibian sheath successfully. Angiography there was normal. Angio-Seal was used to close the britni e successfully. Lesley catheter left and right were used to cannulate the left main and the right m ain respectively. He was found to have a left dominant system, normal circumflex, normal right coron marky artery had a 30% mid LAD lesion. LV-gram was done using the JR4 catheter. He was found to have a normal ejection fraction, normal left ventricular end-diastolic pressure, normal wall motion. He w as in atrial flutter. Complication: None. Blood Loss: 5 cc. Total Conscious Sedation: 30 minutes. Postoperative Diagnosis: Mild coronary artery disease. The patient will go home after 2 hours of be drest and I will see him in the office in about a week or 2. He was instructed to resume his Eliquis starting tomorrow. Plan: Plan is for medical therapy. SEEMA/KEREN Voice ID: [id number] Report ID: [id number]
[2020-05-01 09:52] VITALS: BP 144/83; O2SAT 99
--- OUTSIDE RECORDS SUMMARY | 2020-05-01 14:53 | XMS REPORT | Continuity of Care Document ---
:1935 Author Organization [employer] Care Team Providers Name Role Phone [employer] Unavailable Un available Problems Problem Status Onset Classification Date Comments Sourc e Date Reported STROKE Active 12/24/[address] LF Active 12/24/[address] Hyperlipidemia Resolved Problem 12/29/2016 [place] (disorder[place] [facility] Hypertensive Resolved Problem 12/29/2016 [place] as disorder, Medical systemic arterial Ce nter (disorder) CEREBRAL Active [facility] INFARCTION, Medical UNSPECIFIED Center Medications Medication Details Route Status Patient Ordering Order Source Instructions Provider Date Hydrochlorothiazide 1 tab, PO, Inactive 12/26[facility] 12.5 MG / Losartan Daily, 0 2017 [facility] agnieszka Potassium 100 MG Refill(s) Cente r Oral Tablet Eliquis Notes: Same as: Inactive 12/[place] Eliquis 2017 [facility] ciprofloxacin 250 250 mg = 1 tab, Active 12/[place] mg oral tablet PO, Q12H, X 3 2017 Med ical day, # 6 tab, 0 Center Refill(s) Occupational See Active 12/[place] Graciela Therapy Instructions, 2017 [facility] Evaluate and Treat DX: R MCA ischemic stroke, # 1 appl, 0 Refill(s) Physical Therapy See Active 12/[place] Danielle s Instructions, 2017 [facility] outpatient physical therapy Dx: right MCA stroke, # 1 appl, 0 Refill(s) apixaban 5 MG Oral 5 mg = 1 tab, Active 12/26[place] Tablet [Eliquis] PO, BID, # 60 2017 M edical tab, 3 Center Refill(s) ciprofloxacin 250 250 mg = 1 tab, Inactive 12/26 [place] mg oral tablet PO, Q12H, X 10 2017 Me dical day, # 20 tab, Center 0 Refill(s) atorvastatin 40 mg 40 mg = 1 tab, Active 12/[place] oral tablet PO, Bedtime, # 2017 Medic al 30 tab, 3 Center Refill(s) sotalol 80 mg oral 40 mg = 0.5 Active H [place] tablet tab, PO, 2017 Medical Bedtime, # 30 Center tab, 3 Refill(s) Rocephin Notes: (Same Inactive [place] As: Rocephin). 2017 Medical Use with 100 mL Center NS and infuse over 30 min MEDICATION WASTE Product Size: 1000 mg Product Wasted: ___ mg Sotalol 40 mg, Route: Inactive [place] Hydrochloride 80 MG PO, Q12H, 2017 Me dical Oral Tablet Dosing Weight Center 100, kg, Start date: 12/25/16 21:00:00 FORM GRADER, Duration: 30 day, Stop date: 01/24/17 9:00:00 FORM GRADER sotalol Notes: (Same No Longer [place] As: Betapace) Active 2016 Medical 40 mg = 1/2 x Center 80 mg TAB pneumococcal Notes: (Same [place] 13-valent vaccine as: Prevnar 13) 2017 [facility] gabapentin 400 MG Notes: (Same No Longer [place] Oral Capsule as: Neurontin) Active 2017 [facility] Aspirin 325 MG Notes: (Do Not No Longer [place] Enteric Coated Crush) Do not Active 2016 Mn dical Tablet crush or chew. Center Streptococcus Notes: (Same Inactive [facility] [place] pneumoniae serotype as: Prevnar 13) 2017 [facility] 1 capsular antigen Cente r diphtheria [id number] protein conjugate vaccine / Streptococcus pneumoniae serotype 14 capsular antigen diphtheria [id number] protein conjugate vaccine / Streptococcus pneumoniae serotype 18C capsular antigen d gabapentin 400 MG Notes: (Same No Longer [facility] Oral Capsule as: Neurontin) Active 2017 [facility] Saline Flush 0.9% Notes: (Same No Longer [facility] as: BD Active 2016 [facility] Posiflush) Center Docusate Notes: (Same No Longer [facility] as: Colace) (Do Active 2016 [facility] Not Crush) Center atorvastatin Notes: (Same No Longer [place] as: Lipitor) Active 2017 Medical Center pneumococcal Notes: (Same No Longer [facility] [place] 13-valent vaccine as: Prevnar 13) Active 2017 Medical Center sennosides, ALF Notes: (Same No Longer [place] as: Senokot) Active 2017 Medical Center heparin sodium, Notes: porcine No Longer [place] porcine 2500 UNT/ML heparin Active 2016 [facility] agnieszka Injectable Solution Cent er Dextrose 50% 25 gm, 50 mL, No Longer [place] Syringe Route: IVP, Active 2016 Medical Drug Form: INJ, Center Dosing Weight 100, kg, PRN, PRN Blood Glucose Results, Start date: 12/24/16 15:18:00 FORM GRADER, Duration: 30 day, Stop date: 01/23/17 15:17:00 FORM GRADER Glucagon 1 mg, Route: No Longer [place] IM, Drug form: Active 2016 Medical PDR/INJ, PRN, Center Dosing Weight 100, kg, PRN Blood Glucose Results, Start date: 12/24/16 15:18:00 FORM GRADER, Duration: 30 day, Stop date: 01/23/17 15:17:00 FORM GRADER sodium phosphate + 30 mmol, 10 mL, No Longer [place] sodium chloride Route: IVPB, Active 2016 Med ical 0.9% INJ 250 mL PRN, Dosing Cent er Weight 100, kg, PRN Abnormal Lab Result, Start date: 12/24/16 15:18:00 FORM GRADER, Duration: 30 day, Stop date: 01/23/17 15:17:00 FORM GRADER, FOR ICU USE ONLY potassium chloride Notes: (Same No Longer [place] as: KCL) Active 2016 Medical Infuse over 2 Center hours. Calcium Gluconate Notes: WASTE: No Longer [place] F/P - Sink; E - Active 2016 [facility] [place] Bin Calcium Carbonate Notes: (Same No Longer [place] 500 MG Chewable As: Tums) Active 2016 Medica l Tablet Calcium Center Carbonate 500 mg = 200 mg elemental calcium Dose = mg calcium carbonate ( mg elemental calcium) Magnesium Oxide Notes: (Same No Longer [place] as: Mag-Ox 400) Active 2016 [facility] Magnesium oxide Center [id number] elemental magnesium Dose=____mg magnesium oxide (___mg elemental magnesium) potassium phosphate Notes: (Same No Longer 12/24 [place] + sodium chloride as: K Active 2016 [...] F/P - Sink; E - Active 2016 [facility] Center Bin sotalol 80 mg oral [...] Total Volume: 1,000, Start date: 12/24/16 14:56:00 FORM GRADER, Duration: 30 day, Stop date: 01/23/17 14:55:00 FORM GRADER Flumazenil 0.2 mg, Route: In[place] IVP, PRN, 2016 Medical Dosing Weight Center 100, kg, PRN Benzodiazepine Reversal, Initial dose, Start date: 12/24/16 12:56:00 FORM GRADER, Duration: 30 day, Stop date: 01/23/17 12:55:00 FORM GRADER Naloxone 0.4 mg, Route: Inactive [place] IVP, Q2MIN, 2016 Medical Dosing Weight Center 100, kg, PRN Narcotic Reversal, Start date: 12/24/16 12:56:00 FORM GRADER, Duration: 8 doses or times, Stop date: Limited # of times Ondansetron 4 mg, Route: Inactive [place] IVP, ONCE, 2016 Medical Dosing Weight Center 100, kg, PRN Nausea & Vomiting, Start date: 12/24/16 12:56:00 FORM GRADER Hydromorphone 0.5 mg, Route: Inactive [place] IVP, Q5Min, 2016 Medical Dosing Weight Center 100, kg, PRN Pain Score 7-10, Start date: 12/24/16 12:56:00 FORM GRADER, Duration: 4 doses or times, Stop date: Limited # of times Hydralazine 10 mg, Route: [place]active [place] IVP, Q20Min, 2016 Medical Dosing Weight Center 100, kg, PRN Elevated BP, Start date: 12/24/16 12:56:00 FORM GRADER, Duration: 2 doses or times, Stop date: Limited # of times Labetalol 10 mg, Route: Inactive [place] IVP, Q5Min, 2016 Medical Dosing Weight Center 100, kg, PRN Elevated BP, Start date: 12/24/16 12:56:00 FORM GRADER, Duration: 5 doses or times, Stop date: Limited # of times Saline Flush 0.9% Notes: (Same No Longer [place] as: BD Active 2016 Medical Posiflush) Center Sodium Chloride 1,000 mL, Rate: No Longer Gr[place] 0.154 MEQ/ML 75 ml/hr, Active 2016 Medical Injectable Solution Infuse over: Center 13.3 hr, Route: IV, Dosing Weight 100 kg, Total Volume: 1,000, Start date: 12/24/16 12:28:00 FORM GRADER, Duration: 30 day, Stop date: 01/23/17 12:27:00 FORM GRADER Omnipaque 300 150 ml, Route: Inactive [place]aciela INTRAARTERIAL, 2016 Medical Dosing Weight Center 100, kg, ONCE, Start date: 12/24/16 11:54:00 FORM GRADER, Stop date: 12/24/16 11:54:00 FORM GRADER iodixanol 100 mL, Route: Inactive [place] as IVP, Drug Form: 2017 Medical SOLN, Dosing Center Weight 100, kg, ONCALL, STAT, Start date: 12/24/16 11:29:00 FORM GRADER, Duration: 1 doses or times, Dose = 2.2ml/kg, Max dose = 100ml -- "To be infused by Radiology Staff ONLY" Saline Flush 0.9% Notes: (Same No Longer [facility] as: BD Active 2017 Medical Posiflush) Center Allergies, Adverse Reactions, Alerts No Known Medication Allergies Immunizations Immunization Date Given Site Status Last Comments Source Updated pneumococcal 12/25/2016 Left completed Vish[place] Rob [place] 13-valent vaccine deltoid Me dical Center Results Order Name Results Value Reference Date Interpretation Comments Janet rce Range CHEM PANEL Phosphorus 2.5 2.5 - 4.5 12/26 [facility] CHEM PANEL eGFR 58 12/26 Result Comment: [...] PANEL BUN 17 7 - 22 12/26 [facility] CHEM PANEL Glucose Lvl 95 70 - 99 12/26 [facility] CHEM PANEL Potassium Lvl 3.7 3.5 - 5.1 12/26 [place] [facility] CHEM PANEL Sodium Lvl 142 135 - 145 12/26 [facility] CHEM PANEL Creatinine 1.17 0.50 - 12/26 [facility] Lvl 1.40 [facility] CHEM PANEL CO2 27 24 - 32 12/26 [facility] CHEM PANEL Chloride Lvl 108 95 - 109 12/26 [place] [facility] CHEM PANEL Calcium Lvl 8.4 8.5 - 10.5 12/26 Rob as [facility] CHEM PANEL AGAP 10.7 10.0 - 12/26 [facility] 20.0 [facility] CHEM PANEL Magnesium Lvl 2.2 1.8 - 2.4 12/26 [facility] HEMATOLOGY Lymphocytes # 1.1 1.0 - 5.5 12/26 [facility] HEMATOLOGY Segs-Bands # 6.9 1.5 - 8.1 12/26 [facility] HEMATOLOGY Eosinophils # 0.2 0.0 - 0.5 12/26 [facility] HEMATOLOGY Basophils # 0.1 0.0 - 0.2 12/26 [facility] HEMATOLOGY Monocytes # 0.6 0.0 - 0.8 12/26 [facility] HEMATOLOGY Basophils 0.7 0.0 - 1.0 12/26 [facility] HEMATOLOGY Segs 77.6 45.0 - 12/26 [place] 75.0 [facility] HEMATOLOGY Monocytes 7.1 2.0 - 12.0 12/26 [facility] HEMATOLOGY Eosinophils 1.9 0.0 - 4.0 12/26 [facility] HEMATOLOGY Lymphocytes 12.7 20.0 - 12/26 [place] 40.0 [facility] HEMATOLOGY MPV 9.1 7.4 - 10.4 12/26 [facility] HEMATOLOGY Platelet 108 133 - 450 12/26 [facility] HEMATOLOGY RDW 13.8 11.5 - 12/26 [place] 14.5 [facility] HEMATOLOGY WBC 8.9 3.7 - 10.4 12/26 [facility] HEMATOLOGY RBC 4.84 4.70 - 12/26 [place] 6.10 [facility] HEMATOLOGY Hct 43.3 42.0 - 12/26 [place] 54.0 [facility] HEMATOLOGY MCH 30.0 27.0 - 12/26 [place] 31.0 [facility] HEMATOLOGY Hgb 14.5 14.0 - 12/26 [place] 18.0 [facility] HEMATOLOGY MCHC 33.6 32.0 - 12/26 [place] 36.0 [facility] HEMATOLOGY MCV 89.4 80.0 - 12/26 [place] 94.0 [facility] PARATHYROID Ca Norm WB 1.15 1.05 - 12/26 [place] PROFILE 1.25 [facility] PARATHYROID Ca Ion WB 1.19 1.05 - 12/26 [place] PROFILE 1.25 [facility] URINE AND UA Mucus Few /LPF None Seen 12/26 [facility] STOOL /LPF /2016 [facility] URINE AND UA Sq Epi None Seen 12/26 [facility] URINE AND UA <=1.0 0.1 - 1.0 12/26 [facility] Urobilinogen mg/dL [facility] URINE AND UA Bacteria Occasional None Seen 12/26 [place] STOOL /HPF /HPF [facility] URINE AND UA RBC 1 0 - 2 12/26 [facility] URINE AND UA Nitrite Negative Negative 12/26 [facility] (12/25/16 6:01 PM) [facility] URINE AND UA WBC 9 0 - 5 12/26 [facility] URINE AND UA Leuk Est Large Negative 12/26 [facility] *ABN* [facility] (12/25/16 6:01 PM) [place] URINE AND UA Blood Negative Negative 12/26 [facility] (12/25/16 6:01 PM) [facility] URINE AND UA Bili Negative Negative 12/26 [facility] *NA* /2016 [facility] (12/25/16 6:01 PM) [place] URINE AND UA Ketones Negative Negative 12/26 [facility] mg/dL mg/dL [facility] URINE AND UA pH 6.0 5.0 - 8.0 12/26 [facility] URINE AND UA Glucose Negative Negative 12/26 [facility] mg/dL mg/dL [facility] URINE AND UA Protein Negative Negative 12/26 [facility] mg/dL mg/dL [facility] URINE AND UA Turbidity Clear Clear 12/26 [facility] (12/25/16 6:01 PM) [facility] URINE AND UA Color Yellow Yellow 12/26 [facility] *NA* [facility] (12/25/16 6:01 PM) [place] URINE AND UA Spec Grav 1.012 <=1.030 12/26 [facility] [address] [place] [address] BACTERIAL - MRSA by PCR Negative 12/[place] [facility] (12/25/16 1:53 PM) /2016 [facility] CHEM PANEL eGFR 66 12/25 Result Comment: [...] Calcium Lvl 8.6 8.5 - 10.5 12/25 [facility] CHEM PANEL AGAP 13.0 10.0 - 12/25 [facility] CHEM PANEL Potassium Lvl 4.0 3.5 - 5.1 12/25 [place] [facility] CHEM PANEL Chloride Lvl 109 95 - 109 12/25 [facility] CHEM PANEL CO2 24 24 - 32 12/25 2016 [facility] CHEM PANEL Creatinine 1.05 0.50 - 12/25 [facility] Lvl 1.40 [facility] CHEM PANEL BUN 14 7 - 22 12/25 2016 [facility] CHEM PANEL Sodium Lvl 142 135 - 145 12/25 [facility] CHEM PANEL Glucose Lvl 107 70 - 99 12/25 2016 [facility] CHEM PANEL Phosphorus 2.4 2.5 - 4.5 12/25 2016 [facility] CHEM PANEL Globulin 3.0 2.7 - 4.2 12/25 2016 [facility] CHEM PANEL A/G Ratio 1.0 0.7 - 1.6 12/25 [facility] CHEM PANEL AGAP 10.4 10.0 - 12/25 [facility] CHEM PANEL B/C Ratio 20 6 - 25 12/25 2016 [facility] CHEM PANEL eGFR 62 12/25 [facility] Comment: The Medical eGFR is Center calculated [...] PANEL CO2 24 24 - 32 12/[address] CHEM PANEL Total Protein 5.9 6.4 - 8.4 12/25 [facility] CHEM PANEL Calcium Lvl 7.9 8.5 - 10.5 12/25 [facility] CHEM PANEL AST 12 0 - 37 12/[address] CHEM PANEL ALT 15 0 - 65 12/[address] CHEM PANEL Alk Phos 51 39 - 136 12/[address] CHEM PANEL Albumin Lvl 2.9 3.5 - 5.0 12/25 [facility] CHEM PANEL Bili Total 0.8 0.2 - 1.3 12/[address] CHEM PANEL Glucose Lvl 117 70 - 99 12/[address] CHEM PANEL BUN 22 7 - 22 12/[address] CHEM PANEL Creatinine 1.11 0.50 - 12/25 [facility] Lvl 1.40 [facility] CHEM PANEL Sodium Lvl 138 135 - 145 12/[address] CHEM PANEL Potassium Lvl 3.4 3.5 - 5.1 12/[address] CHEM PANEL Chloride Lvl 107 95 - 109 12/[address] CHEM PANEL Phosphorus 2.1 2.5 - 4.5 12/[address] CHEM PANEL Magnesium Lvl 2.2 1.8 - 2.4 12/25 [facility] HEMATOLOGY Basophils # 0.1 0.0 - 0.2 12/25 [facility] HEMATOLOGY Eosinophils # 0.2 0.0 - 0.5 12/25 [facility] HEMATOLOGY Monocytes # 0.7 0.0 - 0.8 12/25 [facility] HEMATOLOGY Lymphocytes # 1.5 1.0 - 5.5 12/25 [facility] HEMATOLOGY Eosinophils 2.4 0.0 - 4.0 12/25 [facility] HEMATOLOGY Monocytes 6.8 2.0 - 12.0 12/25 [facility] HEMATOLOGY Segs-Bands # 7.7 1.5 - 8.1 12/25 [facility] HEMATOLOGY Basophils 1.1 0.0 - 1.0 12/25 [facility] HEMATOLOGY Segs 74.9 45.0 - 12/25 [place] 75.0 [facility] HEMATOLOGY Lymphocytes 14.8 20.0 - 12/25 [place] 40.0 [facility] HEMATOLOGY MCHC 34.9 32.0 - 12/25 [place] 36.0 [facility] HEMATOLOGY MCH 30.8 27.0 - 12/25 [place] 31.0 [facility] HEMATOLOGY Platelet 128 133 - 450 12/25 [facility] HEMATOLOGY RDW 14.1 11.5 - 12/25 [place] 14.5 [facility] HEMATOLOGY RBC 4.74 4.70 - 12/25 [place] 6.10 [facility] HEMATOLOGY WBC 10.3 3.7 - 10.4 12/25 [facility] HEMATOLOGY MPV 9.3 7.4 - 10.4 12/25 [facility] HEMATOLOGY Hgb 14.6 14.0 - 12/25 [place] 18.0 [facility] HEMATOLOGY MCV 88.3 80.0 - 12/25 [place] 94.0 [facility] HEMATOLOGY Hct 41.8 42.0 - 12/25 [place] 54.0 [facility] PARATHYROID Ca Ion WB 1.16 1. - 12/25 [place] PROFILE 1. [facility] PARATHYROID Ca Norm WB 1.17 1.05 - 12/25 [place] PROFILE 1. [facility] CHEM PANEL Bili Direct 0.2 0.0 - 0.3 12/24 a [facility] CHEM PANEL Alk Phos 51 39 - 136 12/24 [facility] CHEM PANEL Bili Total 1.0 0.2 - 1.3 12/24 [facility] CHEM PANEL ALT 12 0 - 65 12/24 [facility] CHEM PANEL AST 13 0 - 37 12/24 [facility] CHEM PANEL Albumin Lvl 3.1 3.5 - 5.0 12/24 [place] [facility] CHEM PANEL Total Protein 6.2 6.4 - 8.4 12/24 [facility] CHEM PANEL Globulin 3.1 2.7 - 4.2 12/24 [facility] CHEM PANEL A/G Ratio 1.0 0.7 - 1.6 12/24 [facility] CHEM PANEL Bili Indirect 0.8 0.0 - 1.0 12/24 [facility] LIPIDS CHD Risk 2.65 4.00 - 12/24 [place] 7.30 [facility] LIPIDS HDL 52 >=61 mg/dL 12/24 [facility] LIPIDS Chol 138 <=199 12/24 [facility] mg/dL [facility] LIPIDS VLDL 12 12/24 [facility] LIPIDS Trig 59 <=149 12/24 [facility] mg/dL [facility] LIPIDS LDL 74 <=99 mg/dL 12/24 [facility] (Calculated) [facility] SPECIAL Hgb A1C 5.1 <=5.6 % 12/24 [facility] CHEMISTRY [facility] BLOOD BANK ABO/Rh A POS 12/24 [facility] RESULTS [facility] BLOOD BANK Antibody Scrn Negative 12/24 [facility] as RESULTS (12/24/16 11:20 AM) /2016 [facility] CHEM PANEL POC 1.1 0.5 - 1.4 12/24 [facility] Creatinine [facility] CARDIAC Troponin-I <0.02 0.00 - 12/24 [facility] ENZYMES 0.40 [facility] CARDIAC CK MB <0.5 0.5 - 3.6 12/24 [facility] ENZYMES [facility] CARDIAC Total CK 36 12 - 191 12/24 [facility] ENZYMES [facility] CARDIAC CK-MB INDEX <1.4 0.0 - 2.5 12/24 [place] [facility] HEMATOLOGY PT 14.9 12.0 - 12/24 14.7 [facility] HEMATOLOGY INR 1.15 0.85 - 12/24 [place] 1.17 [facility] HEMATOLOGY PTT 32.1 22.9 - 12/24 [place] 35.8 /2016 [facility] HEMATOLOGY MCV 89.5 80.0 - 12/24 [place] 94.0 [facility] HEMATOLOGY RDW 14.1 11.5 - 12/24 [place] 14.5 [facility] HEMATOLOGY MCHC 33.6 32.0 - 12/24 [place] 36.0 [facility] HEMATOLOGY MCH 30.1 27.0 - 12/24 [place] 31.0 [facility] HEMATOLOGY MPV 8.6 7.4 - 10.4 12/24 [facility] HEMATOLOGY Platelet 127 133 - 450 12/24 [facility] HEMATOLOGY Hct 41.7 42.0 - 12/24 54.0 [facility] HEMATOLOGY Hgb 14.0 14.0 - 12/24 [place] 18.0 [facility] HEMATOLOGY RBC 4.65 4.70 - 12/24 [place] 6.10 [facility] HEMATOLOGY WBC 9.3 3.7 - 10.4 12/24 [facility] HEMATOLOGY Monocytes 5.3 2.0 - 12.0 12/24 [facility] HEMATOLOGY Eosinophils 2.8 0.0 - 4.0 12/24 [facility] HEMATOLOGY Basophils 0.8 0.0 - 1.0 12/24 [facility] HEMATOLOGY Lymphocytes 11.1 20.0 - 12/24 [place] 40.0 2017 [facility] HEMATOLOGY Eosinophils # 0.3 0.0 - 0.5 12/24 [facility] HEMATOLOGY Basophils # 0.1 0.0 - 0.2 12/24 [facility] HEMATOLOGY Segs-Bands # 7.4 1.5 - 8.1 12/24 [facility] HEMATOLOGY Lymphocytes # 1.0 1.0 - 5.5 12/24 [facility] HEMATOLOGY Monocytes # 0.5 0.0 - 0.8 12/24 [facility] HEMATOLOGY Segs 80.0 45.0 - 12/24 [facility] 75.0 2017 [facility] Pathology Reports No Data Provided for This Section Diagnostic Reports Report Value Date Source Brain wo contrast MRI EXAM: MRI BRAIN WITHOUT CONTRAST 7 [facility] DATE: 12/24/2016 12:28 PM FORM GRADER Nelida ter INDICATION: 81 years old Mal [...] DX EXAM: XR CHEST 1 VIEW 12/24/2016 [facility] edical DATE: 12/24/2016 11:08 AM FORM GRADER Nelida ter INDICATION: CVA COMPARISON: None TECHNIQUE: AP chest FINDINGS: There is left basilar atelec tasis versus scarring. Rest of the lungs are clear. No pleural effusions or pneumothorax. Cardiomediastinal silhouette is normal limits. No acute osseous abnormality. Soft tissues are within normal limits. IMPRESSION: Left basilar atelectasis versus sca rring. Angiogram cervical EMERGENT CEREBRAL REVASCULARIZATION 7 [facility] bilateral [facility] DATE: 12/24/2016 11:31 AM FORM GRADER HISTORY:81 years Male wit h acute onset [...] administered by the anesthesia team with the media law faculty member present. The patient's systolic arterial blood p ressure was kept between 140 - 180 mmHg. The groin was prepped and draped in the usual sterile fashion. The Left common femoral artery was accessed by using singlewall micropuncture technique and an 9 Fr Bunkspeed Cordis sheath was place d. Under fluoroscopic and roadmap guidance, A 5 Citizen [place] Long Vert guide catheter coaxially advanced with a 0.035 ' Terumo Glidewire telescoped within an 8 Citizen [place] Balloon guide catheter to select the Righ [...] wo EXAM: CT BRAIN WITHOUT CONTRAST 12/24/2016 [facility] Medical contrast CT DATE: 12/24/2016 11:[address] INDICATION: Acute cognitive change COMPARISON: [...] EXAM: CT ANGIOGRAM OF THE BRAIN 12/24/2016 [facility] Medical perfusion CTA EXAM: CT ANGIOGRAM OF THE NECK C enter EXAM: CT PERFUSION OF THE BRAIN DATE: 12/24/2016 11:11 AM FORM GRADER INDICATION: Acute cognitive change COMPARISON: Contemporaneous CT [...] Comments Source Systolic (mm Hg) 123 12/26/2016 [facility] Diastolic (mm Hg) 57 12/26/2016 [facility] Respitory Rate 20 12/26/2016 [facility] Temperature Oral (F) 100.4 F 12/26/2016 [facility] Systolic (mm Hg) 116 12/26/2016 [facility] Diastolic (mm Hg) 63 12/26/2016 [facility] Respitory Rate 20 12/26/2016 [facility] Systolic (mm Hg) 127 12/26/2016 [facility] [place] Diastolic (mm Hg) 67 12/26/2016 [facility] Respitory Rate 20 12/26/2016 [facility] Temperature Oral (F) 99.5 F 12/26/2016 [facility] Temperature Oral (F) 99.9 F 12/26/2016 [facility] Heart Rate 55 12/25/2016 [facility] Weight 100 12/24/2016 [facility] Height 190.5 cm 12/24/2016 [facility] BMI Calculated 27.56 12/24/2016 [facility] Heart Rate 75 12/24/2016 [facility] Height 182.88 cm 12/24/2016 [facility] BMI Calculated 29.9 12/24/2016 [facility] Weight 100 12/24/2016 [facility] Heart Rate 78 12/24/2016 [facility] Encounters Location Location Encounter Encounter Reason Attending ADM DC Stat us Source Details Type Number For Provider Date Date Visit [facility] Inpatient [id number] Yue 12/24 12/26 [facility] Procedures Procedure Code Date Perfomer Comments Source Selective catheter 26636 12/24/2016 Rob as placement, common Medical carotid or innominate Nelida ter artery, unilateral, any approach, with angiography of the ipsilateral extracranial carotid circulation and all associated radiological supervision and interpretation, includes angiography of the c Selective catheter 26909 12/24/2016 Rob as placement, internal Medic al carotid artery, Center unilateral, with angiography of the ipsilateral intracranial carotid circulation and all associated radiological supervision and interpretation, includes angiography of the extracranial carotid and ce Primary percutaneous 48530 12/24/2016 [place] transluminal [facility] thrombectomy, noncoronary, non-intracranial, arterial or arterial bypass graft, including fluoroscopic guidance and intraprocedural pharmacological thrombolytic injection(s); initial vessel Inguinal herniotomy [id number] [facility] Manipulation of the [id number] [facility] Assessment and Plan Assessment and Plan Date Source Extracted from:Title: Clinical Document 12/26/2016 [facility] Author: Jazmin Kent MD Date: 12/26/16 DC-STROKE NEUROLOGY DISCHARGE SUMMARY Date of Admission: 12/24/16 [...] mg daily). Patient was eventually transferred to [facility] stroke unit. He was assessed by PT [...] for Future Care: - Follow up with [facility] in 4-6 weeks, call [phone] for an appointment. - Follow up with your shell reprint operator in 1-2 weeks. - Take all medications as prescribed. - Watch for bleeding since you are now o n a blood thinner, and seek medical attention for bleeding. - Use walker at all times to prevent falls. Jazmin Kent M.D Neurology PGY2 ID# [id number] Pager # [phone] STROKE ATTENDING I have seen and examined [...] 4-6 weeks after discharge as well as shell reprint operator and PCP (chronic kidney disease, HTN) I spent 35 minutes reviewing final imagi ng and laboratory workup, reconciling medications, examining the patient and preparing the patient for discharge. Note: called by pharmacy this after that cipro i nteracts with sotolol. Changed to microb id 7 days 100mg bid and patient has plan to f/u with PCP. [id number] Patient was discharged earlier than expe cted due to rapid improvement and completion of workup faster than anticipated. Yue L Jagolino, MD [facility] Attendant of Neurology Pager: [phone] Extracted from:Title: Clinical Document Author: Jazmin Kent [...] 0845 slumped to the s laxmi with SWIMMING POOL SERVICEPERSON, 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 911 was called [...] Bedtime 12/26/16 cefTRIAXone (Rocephin) 1 gm IVPB [id number] 12/24/16 docusate 100 mg PO Q12H 12/25/16 [...] fluent, comprehension intact, repetition and naming intact ancillary specialist: 2-12 intact Motor: Tone: Normal Power: 5/5 [...] pending Jazmin Kent M.D Neurology PGY2 ID# [id number] Pager # [phone] Extracted from:Title: Stroke Team H&P Author: Deidra Simpson SET DECORATOR Date: 12/24/16 Stroke History and Physical Chief Complaint: R gaze, L Hemiparesis, History of Present Illness: 81 yo white male with pmh HTN, unknown arrhtymia, hernia repair 12/12/15 fully functional and independent at baseline LSN at 0830 when he walked to the bathroom, heard a commotion and checked on him and found h im at 0845 slumped to the side with SWIMMING POOL SERVICEPERSON, 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 911 was called [...] r 0 1c. 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 operator helper /release non-paretic hand; 0-both 1-one 2-neither 2 [...] skin THE FOLLOWING WERE PRESENT ON ADMISSION: [employer] - Acute ischemic strokeHemiparesis or Hemiplegia, Cardiovascular [...] I spent a tot al of 113 ([phone]) minutes at the bedside evaluating the patient, reviewing data, discussing and coordinating the plan of care with the treatment teams and updating the patient on the plan of care [id number] First 31-74 minutes [id number] x2 ACUTE STROKE BENCHMARKS: TIME PT LAST [...] -Subcut heparin -PT/OT/ST -Will need f/u with shell reprint operator and also now with str sony team after discharge. NPP documented full note. [id number] Plan of Care No Data Provided for This Section Social History Social History Date Source Social History TypeResponse 12/24/2016 [facility] Smoking Status Never smoker; Ready to change: No; Yee rns about tobacco use in household: No; Exposure to Tobacco Smoke None; Cigarette Smoking Last 365 Days No; Reg Smoking Cessation Counseling No Family History No Data Provided for This Section Advance Directives No Data Provided for This Section Functional Status No Data Provided for This Section
== END 2020-05-01 10:00 | disposition home or self-care (01) ==
LOC: CCL 06:30
DX: I25.110 Atherosclerotic heart disease of native coronary artery with unstable angina pectoris (principal); I48.92 Unspecified atrial flutter; I48.19 Other persistent atrial fibrillation; I10 Essential (primary) hypertension; R06.09 Other forms of dyspnea; I65.22 Occlusion and stenosis of left carotid artery; Z79.01 Long term (current) use of anticoagulants; Z87.891 Personal history of nicotine dependence
CPT/HCPCS: 85025; 80048; 36415; 85610; 85730; 71046; 93458; C1893; C1760; J2250; J3010; J7040; J0583

== ENCOUNTER 2020-10-26 11:01 | Emergency (ER) | payer OTHER, MEDICARE ==
--- OUTSIDE RECORDS SUMMARY | 2020-10-26 11:05 | XMS REPORT | Continuity of Care Document ---
:1935 Author Organization [facility] Care Team Providers Name Role Phone [facility] Unavailable Un available Problems Problem Status Onset Classification Date Comments Sourc e Date Reported STROKE Active 12/24/[address] LF Active 12/24/[address] Hyperlipidemia Resolved Problem 12/29/2016 [place] (disorder) [facility] Hypertensive Resolved Problem 12/29/2016 Rob as disorder, Medical systemic arterial Ce nter (disorder) CEREBRAL Active [facility] INFARCTION, Medical UNSPECIFIED Center Medications Medication Details Route Status Patient Ordering Order Source Instructions Provider Date Hydrochlorothiazide 1 tab, PO, Inactive 12/26[facility] 12.5 MG / Losartan Daily, 0 2017 [facility] agnieszka Potassium 100 MG Refill(s) Cente r Oral Tablet Eliquis Notes: Same as: Inactive 12/26[facility] Roba s Eliquis 2017 [facility] ciprofloxacin 250 250 mg = 1 tab, Active 12/26[facility] [place] mg oral tablet PO, Q12H, X 3 2017 Med ical day, # 6 tab, 0 Center Refill(s) Occupational See Active 12/26[facility] Graciela Therapy Instructions, 2017 [facility] Evaluate and Treat DX: R MCA ischemic stroke, # 1 appl, 0 Refill(s) Physical Therapy See Active 12/26[facility] Danielle s Instructions, 2017 [facility] outpatient physical therapy Dx: right MCA stroke, # 1 appl, 0 Refill(s) apixaban 5 MG Oral 5 mg = 1 tab, Active 12/26[facility] [place] Tablet [Eliquis] PO, BID, # 60 2017 M edical tab, 3 Center Refill(s) ciprofloxacin 250 250 mg = 1 tab, Inactive 12/26 [facility] [place] mg oral tablet PO, Q12H, X 10 2017 Me dical day, # 20 tab, Center 0 Refill(s) atorvastatin 40 mg 40 mg = 1 tab, Active 12/26[facility] [place] oral tablet PO, Bedtime, # 2017 Medic al 30 tab, 3 Center Refill(s) sotalol 80 mg oral 40 mg = 0.5 Active H [place] tablet tab, PO, 2017 Medical Bedtime, # 30 Center tab, 3 Refill(s) Rocephin Notes: (Same Inactive [place] As: Rocephin). 2017 Medical Use with 100 mL Center NS and infuse over 30 min MEDICATION WASTE Product Size: 1000 mg Product Wasted: ___ mg Sotalol 40 mg, Route: Inactive [place] Hydrochloride 80 MG PO, Q12H, 2017 Me dical Oral Tablet Dosing Weight Center 100, kg, Start date: 12/25/16 21:00:00 [employer], Duration: 30 day, Stop date: 01/24/17 9:00:00 [employer] sotalol Notes: (Same No Longer [place] As: Betapace) Active 2016 Medical 40 mg = 1/2 x Center 80 mg TAB pneumococcal Notes: (Same In[place] 13-valent vaccine as: Prevnar 13) 2017 [facility] gabapentin 400 MG Notes: (Same No Longer [place] Oral Capsule as: Neurontin) Active 2017 [facility] Aspirin 325 MG Notes: (Do Not No Longer [place] Enteric Coated Crush) Do not Active 2016 Ne dical Tablet crush or chew. Center Streptococcus Notes: (Same Inactive [facility] [place] pneumoniae serotype as: Prevnar 13) 2017 [facility] 1 capsular antigen Cente r diphtheria [id number] protein conjugate vaccine / Streptococcus pneumoniae serotype 14 capsular antigen diphtheria [id number] protein conjugate vaccine / Streptococcus pneumoniae serotype 18C capsular antigen d gabapentin 400 MG Notes: (Same No Longer [facility] Oral Capsule as: Neurontin) Active 2017 [facility] Saline Flush 0.9% Notes: (Same No Longer [facility] as: BD Active 2016 [facility] Posiflush) Center Docusate Notes: (Same No Longer [facility] as: Colace) (Do Active 2016 [facility] Not Crush) Center atorvastatin Notes: (Same No Longer [place] as: Lipitor) Active 2017 Medical Center pneumococcal Notes: (Same No Longer [facility] [place] 13-valent vaccine as: Prevnar 13) Active 2017 Medical Center sennosides, RETIREMENT Notes: (Same No Longer [place] as: Senokot) Active 2017 Medical Center heparin sodium, Notes: porcine No Longer [place] porcine 2500 UNT/ML heparin Active 2016 [facility] agnieszka Injectable Solution Cent er Dextrose 50% 25 gm, 50 mL, No Longer [place] Syringe Route: IVP, Active 2016 Medical Drug Form: INJ, Center Dosing Weight 100, kg, PRN, PRN Blood Glucose Results, Start date: 12/24/16 15:18:00 [employer], Duration: 30 day, Stop date: 01/23/17 15:17:00 [employer] Glucagon 1 mg, Route: No Longer [place] IM, Drug form: Active 2016 Medical PDR/INJ, PRN, Center Dosing Weight 100, kg, PRN Blood Glucose Results, Start date: 12/24/16 15:18:00 [employer], Duration: 30 day, Stop date: 01/23/17 15:17:00 [employer] sodium phosphate + 30 mmol, 10 mL, No Longer [place] sodium chloride Route: IVPB, Active 2016 Med ical 0.9% INJ 250 mL PRN, Dosing Cent er Weight 100, kg, PRN Abnormal Lab Result, Start date: 12/24/16 15:18:00 [employer], Duration: 30 day, Stop date: 01/23/17 15:17:00 [employer], FOR ICU USE ONLY potassium chloride Notes: (Same No Longer [place] as: KCL) Active 2016 Medical Infuse over 2 Center hours. Calcium Gluconate Notes: WASTE: No Longer [place] F/P - Sink; E - Active 2016 [facility] [place] Bin Calcium Carbonate Notes: (Same No Longer [place] 500 MG Chewable As: Tums) Active 2016 Medica l Tablet Calcium Center Carbonate 500 mg = 200 mg elemental calcium Dose = mg calcium carbonate ( mg elemental calcium) Magnesium Oxide Notes: (Same No Longer [place] as: Mag-Ox 400) Active 2016 [facility] Magnesium oxide Center [id number] elemental magnesium Dose=____mg magnesium oxide (___mg elemental magnesium) potassium phosphate Notes: (Same No Longer 12/24 [place] + sodium chloride as: K Active 2016 [...] F/P - Sink; E - Active 2016 [facility] Trash Center Bin sotalol 80 mg oral [...] Total Volume: 1,000, Start date: 12/24/16 14:56:00 [employer], Duration: 30 day, Stop date: 01/23/17 14:55:00 [employer] Flumazenil 0.2 mg, Route: Inactive [place] IVP, PRN, 2016 Medical Dosing Weight Center 100, kg, PRN Benzodiazepine Reversal, Initial dose, Start date: 12/24/16 12:56:00 [employer], Duration: 30 day, Stop date: 01/23/17 12:55:00 [employer] Naloxone 0.4 mg, Route: Inactive [place] IVP, Q2MIN, 2016 Medical Dosing Weight Center 100, kg, PRN Narcotic Reversal, Start date: 12/24/16 12:56:00 [employer], Duration: 8 doses or times, Stop date: Limited # of times Ondansetron 4 mg, Route: Inactive [place] IVP, ONCE, 2016 Medical Dosing Weight Center 100, kg, PRN Nausea & Vomiting, Start date: 12/24/16 12:56:00 [employer] Hydromorphone 0.5 mg, Route: Inactive [place] IVP, Q5Min, 2016 Medical Dosing Weight Center 100, kg, PRN Pain Score 7-10, Start date: 12/24/16 12:56:00 [employer], Duration: 4 doses or times, Stop date: Limited # of times Hydralazine 10 mg, Route: Inactive [place] IVP, Q20Min, 2016 Medical Dosing Weight Center 100, kg, PRN Elevated BP, Start date: 12/24/16 12:56:00 [employer], Duration: 2 doses or times, Stop date: Limited # of times Labetalol 10 mg, Route: Inactive [place] IVP, Q5Min, 2016 Medical Dosing Weight Center 100, kg, PRN Elevated BP, Start date: 12/24/16 12:56:00 [employer], Duration: 5 doses or times, Stop date: Limited # of times Saline Flush 0.9% Notes: (Same No Longer [place] as: BD Active 2016 Medical Posiflush) Center Sodium Chloride 1,000 mL, Rate: No Longer [place] 0.154 MEQ/ML 75 ml/hr, Active 2016 Medical Injectable Solution Infuse over: Center 13.3 hr, Route: IV, Dosing Weight 100 kg, Total Volume: 1,000, Start date: 12/24/16 12:28:00 [employer], Duration: 30 day, Stop date: 01/23/17 12:27:00 [employer] Omnipaque 300 150 ml, Route: Inactive 12/24[facility] Graciela INTRAARTERIAL, 2016 Medical Dosing Weight Center 100, kg, ONCE, Start date: 12/24/16 11:54:00 [employer], Stop date: 12/24/16 11:54:00 [employer] iodixanol 100 mL, Route: Inactive [place] IVP, Drug Form: 2017 Medical SOLN, Dosing Center Weight 100, kg, ONCALL, STAT, Start date: 12/24/16 11:29:00 [employer], Duration: 1 doses or times, Dose = 2.2ml/kg, Max dose = 100ml -- "To be infused by Radiology Staff ONLY" Saline Flush 0.9% Notes: (Same No Longer [facility] as: BD Active 2017 Medical Posiflush) Center Allergies, Adverse Reactions, Alerts No Known Medication Allergies Immunizations Immunization Date Given Site Status Last Comments Source Updated pneumococcal 12/25/2016 Left completed Vishal Rob as 13-valent vaccine deltoid Me dical Center Results Order Name Results Value Reference Date Interpretation Comments Janet rce Range CHEM PANEL Phosphorus 2.5 2.5 - 4.5 12/26 [facility] CHEM PANEL eGFR 58 12/26 Result Comment: [...] 17 7 - 22 12/26 [facility] CHEM PANEL Glucose Lvl 95 70 - 99 12/26 [facility] CHEM PANEL Potassium Lvl 3.7 3.5 - 5.1 12/26 [place] [facility] CHEM PANEL Sodium Lvl 142 135 - 145 12/26 [facility] CHEM PANEL Creatinine 1.17 0.50 - 12/26 [facility] Lvl 1.40 [facility] CHEM PANEL CO2 27 24 - 32 12/26 [facility] CHEM PANEL Chloride Lvl 108 95 - 109 12/26 [place] [facility] CHEM PANEL Calcium Lvl 8.4 8.5 - 10.5 12/26 Rob as [facility] CHEM PANEL AGAP 10.7 10.0 - 12/26 [facility] 20.0 [facility] CHEM PANEL Magnesium Lvl 2.2 1.8 - 2.4 12/26 [facility] HEMATOLOGY Lymphocytes # 1.1 1.0 - 5.5 12/26 [facility] HEMATOLOGY Segs-Bands # 6.9 1.5 - 8.1 12/26 [facility] HEMATOLOGY Eosinophils # 0.2 0.0 - 0.5 12/26 [facility] HEMATOLOGY Basophils # 0.1 0.0 - 0.2 12/26 [facility] HEMATOLOGY Monocytes # 0.6 0.0 - 0.8 12/26 [facility] HEMATOLOGY Basophils 0.7 0.0 - 1.0 12/26 [facility] HEMATOLOGY Segs 77.6 45.0 - 12/26 [place] 75.0 [facility] HEMATOLOGY Monocytes 7.1 2.0 - 12.0 12/26 [facility] HEMATOLOGY Eosinophils 1.9 0.0 - 4.0 12/26 [facility] HEMATOLOGY Lymphocytes 12.7 20.0 - 12/26 [place] 40.0 [facility] HEMATOLOGY MPV 9.1 7.4 - 10.4 12/26 [facility] HEMATOLOGY Platelet 108 133 - 450 12/26 [facility] HEMATOLOGY RDW 13.8 11.5 - 12/26 [place] 14.5 [facility] HEMATOLOGY WBC 8.9 3.7 - 10.4 12/26 [facility] HEMATOLOGY RBC 4.84 4.70 - 12/26 [place] 6.10 [facility] HEMATOLOGY Hct 43.3 42.0 - 12/26 [place] 54.0 [facility] HEMATOLOGY MCH 30.0 27.0 - 12/26 [place] 31.0 [facility] HEMATOLOGY Hgb 14.5 14.0 - 12/26 [place] 18.0 [facility] HEMATOLOGY MCHC 33.6 32.0 - 12/26 [place] 36.0 [facility] HEMATOLOGY MCV 89.4 80.0 - 12/26 [place] 94.0 [facility] PARATHYROID Ca Norm WB 1.15 1.05 - 12/26 [place] PROFILE 1.25 [facility] PARATHYROID Ca Ion WB 1.19 1.05 - 12/26 [place] PROFILE 1.25 [facility] URINE AND UA Mucus Few /LPF None Seen 12/26 [facility] STOOL /LPF /2016 [facility] URINE AND UA Sq Epi None Seen 12/26 [facility] URINE AND UA <=1.0 0.1 - 1.0 12/26 [facility] Urobilinogen mg/dL [facility] URINE AND UA Bacteria Occasional None Seen 12/26 [place] STOOL /HPF /HPF [facility] URINE AND UA RBC 1 0 - 2 12/26 [facility] URINE AND UA Nitrite Negative Negative 12/26 [facility] (12/25/16 6:01 PM) [facility] URINE AND UA WBC 9 0 - 5 12/26 [facility] URINE AND UA Leuk Est Large Negative 12/26 [facility] *ABN* [facility] (12/25/16 6:01 PM) [place] URINE AND UA Blood Negative Negative 12/26 [facility] (12/25/16 6:01 PM) [facility] URINE AND UA Bili Negative Negative 12/26 [facility] *NA* /2016 [facility] (12/25/16 6:01 PM) [place] URINE AND UA Ketones Negative Negative 12/26 [facility] mg/dL mg/dL [facility] URINE AND UA pH 6.0 5.0 - 8.0 12/26 [facility] URINE AND UA Glucose Negative Negative 12/26 [facility] mg/dL mg/dL [facility] URINE AND UA Protein Negative Negative 12/26 [facility] mg/dL mg/dL [facility] URINE AND UA Turbidity Clear Clear 12/26 [facility] (12/25/16 6:01 PM) [facility] URINE AND UA Color Yellow Yellow 12/26 [facility] *NA* [facility] (12/25/16 6:01 PM) [place] URINE AND UA Spec Grav 1.012 <=1.030 12/26 [facility] [address] [place] [address] BACTERIAL - MRSA by PCR Negative 12/25 [place] [facility] (12/25/16 1:53 PM) /2016 [facility] CHEM PANEL eGFR 66 12/25 [...] 8.6 8.5 - 10.5 12/25 [facility] CHEM PANEL AGAP 13.0 10.0 - 12/25 [facility] CHEM PANEL Potassium Lvl 4.0 3.5 - 5.1 12/25 [place] [facility] CHEM PANEL Chloride Lvl 109 95 - 109 12/25 [facility] CHEM PANEL CO2 24 24 - 32 12/25 2016 [facility] CHEM PANEL Creatinine 1.05 0.50 - 12/25 [facility] Lvl 1.40 [facility] CHEM PANEL BUN 14 7 - 22 12/25 2016 [facility] CHEM PANEL Sodium Lvl 142 135 - 145 12/25 [facility] CHEM PANEL Glucose Lvl 107 70 - 99 12/25 2016 [facility] CHEM PANEL Phosphorus 2.4 2.5 - 4.5 12/25 2016 [facility] CHEM PANEL Globulin 3.0 2.7 - 4.2 12/25 2016 [facility] CHEM PANEL A/G Ratio 1.0 0.7 - 1.6 12/25 [facility] CHEM PANEL AGAP 10.4 10.0 - 12/25 [facility] CHEM PANEL B/C Ratio 20 6 - 25 12/25 2016 [facility] CHEM PANEL eGFR 62 12/25 [facility] Comment: The Medical eGFR is [...] PANEL CO2 24 24 - 32 12/[address] CHEM PANEL Total Protein 5.9 6.4 - 8.4 12/25 [facility] CHEM PANEL Calcium Lvl 7.9 8.5 - 10.5 12/25 [facility] CHEM PANEL AST 12 0 - 37 12/[address] CHEM PANEL ALT 15 0 - 65 12/[address] CHEM PANEL Alk Phos 51 39 - 136 12/[address] CHEM PANEL Albumin Lvl 2.9 3.5 - 5.0 12/25 [facility] CHEM PANEL Bili Total 0.8 0.2 - 1.3 12/[address] CHEM PANEL Glucose Lvl 117 70 - 99 12/[address] CHEM PANEL BUN 22 7 - 22 12/[address] CHEM PANEL Creatinine 1.11 0.50 - 12/25 [facility] Lvl 1.40 [facility] CHEM PANEL Sodium Lvl 138 135 - 145 12/[address] CHEM PANEL Potassium Lvl 3.4 3.5 - 5.1 12/[address] CHEM PANEL Chloride Lvl 107 95 - 109 12/[address] CHEM PANEL Phosphorus 2.1 2.5 - 4.5 12/[address] CHEM PANEL Magnesium Lvl 2.2 1.8 - 2.4 12/25 [facility] HEMATOLOGY Basophils # 0.1 0.0 - 0.2 12/25 [facility] HEMATOLOGY Eosinophils # 0.2 0.0 - 0.5 12/25 [facility] HEMATOLOGY Monocytes # 0.7 0.0 - 0.8 12/25 [facility] HEMATOLOGY Lymphocytes # 1.5 1.0 - 5.5 12/25 [facility] HEMATOLOGY Eosinophils 2.4 0.0 - 4.0 12/25 [facility] HEMATOLOGY Monocytes 6.8 2.0 - 12.0 12/25 [facility] HEMATOLOGY Segs-Bands # 7.7 1.5 - 8.1 12/25 [facility] HEMATOLOGY Basophils 1.1 0.0 - 1.0 12/25 [facility] HEMATOLOGY Segs 74.9 45.0 - 12/25 [place] 75.0 [facility] HEMATOLOGY Lymphocytes 14.8 20.0 - 12/25 [place] 40.0 [facility] HEMATOLOGY MCHC 34.9 32.0 - 12/25 [place] 36.0 [facility] HEMATOLOGY MCH 30.8 27.0 - 12/25 [place] 31.0 [facility] HEMATOLOGY Platelet 128 133 - 450 12/25 [facility] HEMATOLOGY RDW 14.1 11.5 - 12/25 [place] 14.5 [facility] HEMATOLOGY RBC 4.74 4.70 - 12/25 [place] 6.10 [facility] HEMATOLOGY WBC 10.3 3.7 - 10.4 12/25 [facility] HEMATOLOGY MPV 9.3 7.4 - 10.4 12/25 [facility] HEMATOLOGY Hgb 14.6 14.0 - 12/25 [place] 18.0 [facility] HEMATOLOGY MCV 88.3 80.0 - 12/25 [place] 94.0 [facility] HEMATOLOGY Hct 41.8 42.0 - 12/25 [place] 54.0 [facility] PARATHYROID Ca Ion WB 1.16 1. - 12/25 [place] PROFILE 1. [facility] PARATHYROID Ca Norm WB 1.17 1.05 - 12/25 [place] PROFILE 1. [facility] CHEM PANEL Bili Direct 0.2 0.0 - 0.3 12/24 a [facility] CHEM PANEL Alk Phos 51 39 - 136 12/24 [facility] CHEM PANEL Bili Total 1.0 0.2 - 1.3 12/24 [facility] CHEM PANEL ALT 12 0 - 65 12/24 [facility] CHEM PANEL AST 13 0 - 37 12/24 [facility] CHEM PANEL Albumin Lvl 3.1 3.5 - 5.0 12/24 a s [facility] CHEM PANEL Total Protein 6.2 6.4 - 8.4 12/24 [facility] CHEM PANEL Globulin 3.1 2.7 - 4.2 12/24 [facility] CHEM PANEL A/G Ratio 1.0 0.7 - 1.6 12/24 [facility] CHEM PANEL Bili Indirect 0.8 0.0 - 1.0 12/24 [facility] LIPIDS CHD Risk 2.65 4.00 - 12/24 [place] 7.30 [facility] LIPIDS HDL 52 >=61 mg/dL 12/24 [facility] LIPIDS Chol 138 <=199 12/24 [facility] mg/dL [facility] LIPIDS VLDL 12 12/24 [facility] LIPIDS Trig 59 <=149 12/24 [facility] mg/dL [facility] LIPIDS LDL 74 <=99 mg/dL 12/24 [facility] (Calculated) [facility] SPECIAL Hgb A1C 5.1 <=5.6 % 12/24 [facility] CHEMISTRY [facility] BLOOD BANK ABO/Rh A POS 12/24 [facility] RESULTS [facility] BLOOD BANK Antibody Scrn Negative 12/24 [facility] as RESULTS (12/24/16 11:20 AM) /2016 [facility] CHEM PANEL POC 1.1 0.5 - 1.4 12/24 [facility] Creatinine [facility] CARDIAC Troponin-I <0.02 0.00 - 12/24 [facility] ENZYMES 0.40 [facility] CARDIAC CK MB <0.5 0.5 - 3.6 12/24 [facility] ENZYMES [facility] CARDIAC Total CK 36 12 - 191 12/24 [facility] ENZYMES [facility] CARDIAC CK-MB INDEX <1.4 0.0 - 2.5 12/24 ENZYMES [facility] HEMATOLOGY PT 14.9 12.0 - 12/24 14.7 [facility] HEMATOLOGY INR 1.15 0.85 - 12/24 [place] 1.17 [facility] HEMATOLOGY PTT 32.1 22.9 - 12/24 [place] 35.8 /2016 [facility] HEMATOLOGY MCV 89.5 80.0 - 12/24 [place] 94.0 [facility] HEMATOLOGY RDW 14.1 11.5 - 12/24 [place] 14.5 [facility] HEMATOLOGY MCHC 33.6 32.0 - 12/24 [place] 36.0 [facility] HEMATOLOGY MCH 30.1 27.0 - 12/24 [place] 31.0 [facility] HEMATOLOGY MPV 8.6 7.4 - 10.4 12/24 [facility] HEMATOLOGY Platelet 127 133 - 450 12/24 [facility] HEMATOLOGY Hct 41.7 42.0 - 12/24 54.0 [facility] HEMATOLOGY Hgb 14.0 14.0 - 12/24 [place] 18.0 [facility] HEMATOLOGY RBC 4.65 4.70 - 12/24 [place] 6.10 [facility] HEMATOLOGY WBC 9.3 3.7 - 10.4 12/24 [facility] HEMATOLOGY Monocytes 5.3 2.0 - 12.0 12/24 [facility] HEMATOLOGY Eosinophils 2.8 0.0 - 4.0 12/24 [facility] HEMATOLOGY Basophils 0.8 0.0 - 1.0 12/24 [facility] HEMATOLOGY Lymphocytes 11.1 20.0 - 12/24 [place] 40.0 2017 [facility] HEMATOLOGY Eosinophils # 0.3 0.0 - 0.5 12/24 [facility] HEMATOLOGY Basophils # 0.1 0.0 - 0.2 12/24 [facility] HEMATOLOGY Segs-Bands # 7.4 1.5 - 8.1 12/24 [facility] HEMATOLOGY Lymphocytes # 1.0 1.0 - 5.5 12/24 [facility] HEMATOLOGY Monocytes # 0.5 0.0 - 0.8 12/24 [facility] HEMATOLOGY Segs 80.0 45.0 - 12/24 [facility] 75.0 2017 [facility] Center Pathology Reports No Data Provided for This Section Diagnostic Reports Report Value Date Source Brain wo contrast MRI EXAM: MRI BRAIN WITHOUT CONTRAST 7 [facility] DATE: 12/24/2016 12:28 PM [employer] [place] [address] INDICATION: 81 years old Mal [...] DX EXAM: XR CHEST 1 VIEW 12/24/2016 [facility] edical DATE: 12/24/2016 11:08 AM [employer] [place] [facility] INDICATION: CVA COMPARISON: None TECHNIQUE: AP chest FINDINGS: There is left basilar atelec tasis versus scarring. Rest of the lungs are clear. No pleural effusions or pneumothorax. Cardiomediastinal silhouette is normal limits. No acute osseous abnormality. Soft tissues are within normal limits. IMPRESSION: Left basilar atelectasis versus sca rring. Angiogram cervical EMERGENT CEREBRAL REVASCULARIZATION 7 [facility] bilateral [facility] DATE: 12/24/2016 11:31 AM [employer] HISTORY:81 years Male wit h acute onset [...] administered by the anesthesia team with the space studies faculty member present. The patient's systolic arterial blood p ressure was kept between 140 - 180 mmHg. The groin was prepped and draped in the usual sterile fashion. The Left common femoral artery was accessed by using singlewall micropuncture technique and an 9 Fr Sett[address] sheath was place d. Under fluoroscopic and roadmap guidance, A 5 Upper Sorbian Long Vert guide catheter coaxially advanced with a 0.035 ' Terumo Glidewire telescoped within an 8 Upper Sorbian Balloon guide catheter to select the Righ [...] wo EXAM: CT BRAIN WITHOUT CONTRAST 12/24/2016 [facility] Medical contrast CT DATE: 12/24/2016 11:05 AM [employer] [place] ter INDICATION: Acute cognitive change COMPARISON: [...] EXAM: CT ANGIOGRAM OF THE BRAIN 12/24/2016 [facility] Medical perfusion CTA EXAM: CT ANGIOGRAM OF THE NECK C enter EXAM: CT PERFUSION OF THE BRAIN DATE: 12/24/2016 11:11 AM [employer] INDICATION: Acute cognitive change COMPARISON: Contemporaneous CT [...] 123 12/26/[address] [facility] Diastolic (mm Hg) 57 12/26/2016 [facility] Respitory Rate 20 12/26/2016 [facility] Temperature Oral (F) 100.4 F 12/26/2016 [facility] Systolic (mm Hg) 116 12/26/[address] [facility] Diastolic (mm Hg) 63 12/26/2016 [facility] Respitory Rate 20 12/26/2016 [facility] Systolic (mm Hg) 127 12/26/2016 [facility] dical [place] Diastolic (mm Hg) 67 12/26/2016 [facility] Respitory Rate 20 12/26/2016 [facility] Temperature Oral (F) 99.5 F 12/26/2016 [facility] Temperature Oral (F) 99.9 F 12/26/2016 [facility] Heart Rate 55 12/25/2016 [facility] Weight 100 12/24/2016 [facility] Height 190.5 cm 12/24/2016 [facility] BMI Calculated 27.56 12/24/2016 [facility] Heart Rate 75 12/24/2016 [facility] Height 182.88 cm 12/24/2016 [facility] BMI Calculated 29.9 12/24/2016 [facility] Weight 100 12/24/2016 [facility] Heart Rate 78 12/24/2016 [facility] Encounters Location Location Encounter Encounter Reason Attending ADM DC Stat us Source Details Type Number For Provider Date Date Visit [facility] Inpatient [id number] [place] 12/24 12/26 [facility] Procedures Procedure Code Date Perfomer Comments Source Selective catheter 97994 12/24/2016 [place] placement, common Medical carotid or innominate Nelida ter artery, unilateral, any approach, with angiography of the ipsilateral extracranial carotid circulation and all associated radiological supervision and interpretation, includes angiography of the c Selective catheter 64005 12/24/2016 [place] placement, internal Medic al carotid artery, Center unilateral, with angiography of the ipsilateral intracranial carotid circulation and all associated radiological supervision and interpretation, includes angiography of the extracranial carotid and ce Primary percutaneous [id number] 12/24/2016 [place] transluminal [facility] thrombectomy, noncoronary, non-intracranial, arterial or arterial bypass graft, including fluoroscopic guidance and intraprocedural pharmacological thrombolytic injection(s); initial vessel Inguinal herniotomy [id number] [facility] Manipulation of the [id number] [facility] Assessment and Plan Assessment and Plan Date Source Extracted from:Title: Clinical Document 12/26/2016 [facility] Author: Jazmin Kent MD Date: 12/26/16 [facility] DISCHARGE SUMMARY Date of Admission: 12/24/16 [...] mg daily). Patient was eventually transferred to [facility] stroke unit. He was assessed by [...] for Future Care: - Follow up with [facility] in 4-6 weeks, call [phone] for an appointment. - Follow up with your mash tub cooker in 1-2 weeks. - Take all medications as prescribed. - Watch for bleeding since you are now o n a blood thinner, and seek medical attention for bleeding. - Use walker at all times to prevent falls. Jazmin Kent M.D Neurology PGY2 ID# [id number] Pager # [phone] STROKE ATTENDING I have seen and examined [...] 4-6 weeks after discharge as well as mash tub cooker and PCP (chronic kidney disease, HTN) I spent 35 minutes reviewing final imagi ng and laboratory workup, reconciling medications, examining the patient and preparing the patient for discharge. Note: called by pharmacy this after that cipro i nteracts with sotolol. Changed to microb id 7 days 100mg bid and patient has plan to f/u with PCP. [id number] Patient was discharged earlier than expe cted due to rapid improvement and completion of workup faster than anticipated. Yue L Jagolino, MD [employer] [facility] Pager: [phone] Extracted from:Title: Clinical Document Author: Jazmin Kent [...] 0845 slumped to the s laxmi with SAILOR, 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 911 was called [...] Bedtime 12/26/16 cefTRIAXone (Rocephin) 1 gm IVPB [id number] 12/24/16 docusate 100 mg PO Q12H 12/25/16 [...] fluent, comprehension intact, repetition and naming intact digital marketing specialist: 2-12 intact Motor: Tone: Normal Power: [...] pending Jazmin Kent M.D Neurology PGY2 ID# [id number] Pager # [phone] Extracted from:Title: Stroke Team H&P Author: Deidra Simpson CENTERLESS GRINDER OPERATOR Date: 12/24/16 Stroke History and Physical Chief Complaint: R gaze, L Hemiparesis, History of Present Illness: 81 yo white male with pmh HTN, unknown arrhtymia, hernia repair 12/12/15 fully functional and independent at baseline LSN at 0830 when he walked to the bathroom, heard a commotion and checked on him and found h im at 0845 slumped to the side with SAILOR, 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 911 was called [...] r 0 1c. LOC Commands open/close eyes, cad designer /release non-paretic hand; 0-both 1-one 2-neither 2 [...] skin THE FOLLOWING WERE PRESENT ON ADMISSION: TRAFFIC CHIEF - Acute ischemic strokeHemiparesis or Hemiplegia, Cardiovascular [...] I spent a tot al of 113 ([phone]) minutes at the bedside evaluating the patient, reviewing data, discussing and coordinating the plan of care with the treatment teams and updating the patient on the plan of care [id number] First 31-74 minutes [id number] x2 ACUTE STROKE BENCHMARKS: TIME PT LAST [...] -Subcut heparin -PT/OT/ST -Will need f/u with mash tub cooker and also now with str sony team after discharge. NPP documented full note. [id number] Plan of Care No Data Provided for This Section Social History Social History Date Source Social History TypeResponse 12/24/2016 [facility] Smoking Status Never smoker; Ready to [...]
[2020-10-26 11:35] LABS: Basophils % 1.3 % (0-1.3); Lymphocytes % 16.5 % (15.3-44.8)
[2020-10-26 11:39] LABS: Protime INR 1.24
[2020-10-26 11:51] LABS: Albumin 3.8 g/dL (3.4-5.0); Bilirubin Direct 0.3 mg/dL (0-0.2); Bilirubin Total 0.9 mg/dL (0.2-1.0); Potassium 4.5 mmol/L (3.5-5.1); Protein, Total 7.8 g/dL (6.4-8.2)
--- NOTE | 2020-10-26 12:46 | RAD REPORT ---
EXAM DESCRIPTION: CT - Abdomen Pelvis Wo Contrast - 10/26/2020 12:07 pm CLINICAL HISTORY: Abdominal pain hematuria COMPARISON: 2019 TECHNIQUE: Computed axial tomography of the abdomen and pelvis was obtained. IV and oral contrast we re not requested. All CT scans are performed using dose optimization technique as appropriate and may include automated exposure control or mA/KV adjustment according to patient size. FINDINGS: The evaluation of solid organs, vessels and bowel is limited secondary to the lack of con trast administration. Marked left hydronephrosis with left renal cortical thinning. Centimeter left renal cyst. The left pr oximal mid left ureter are markedly dilated. Ill-defined increased density is present within the left ureter within the upper pelvis measuring approximately 2.6 centimeters. There is then an abrupt ramirez sition to normal caliber distal left ureter. 2.2 centimeter hemorrhagic/proteinaceous cyst right kidney. Additional smaller right renal cysts. No right hydronephrosis. A ureteral calculus is not seen. No bladder calculus. No renal calculus noted Small hepatic cysts. The spleen, pancreas and adrenals appear grossly normal There is no evidence of diverticulitis. Normal appendix Small left inguinal hernia contains fat. Postsurgical changes right inguinal hernia repair. Spondylos is involves lumbar spine resulting in spinal stenosis IMPRESSION: Marked left hydronephrosis and left hydroureter. A ureteral calculus is not seen. Howeve r there is ill-defined increased density within the mid to distal left ureter which could represent b lood or mass. There is an abrupt transition to normal caliber within the distal left ureter. .
[2020-10-26] MEDS ORDERED: NA CHLORIDE 0.9% 500 ML ONE (13:18)
--- NOTE | 2020-10-26 14:16 | ER ---
Nurse's Notes [facility] Name: Madi Manning Age: 84 yrs Sex: Male : 1935 Arrival Date: 10/26/2020 Time: 11:03 Bed 13 Private MD: Diagnosis: Hematuria;Hydronephrosis with ureteral stricture, not elsewhere classified-left uretric mass Presentation: 10/26 11:20 Chief complaint: Patient states: Blood in urine since last night, mild low back pain. jl7 Coronavirus screen: Client denies travel out of the [place] in the last 14 days. At this time, the client does not indicate any symptoms associated with coronavirus-19. Ebola Screen: No symptoms or risks identified at this time. Initial Sepsis Screen: Does the patient meet any 2 criteria? No. Patient's initial sepsis screen is negative. Does the patient have a suspected source of infection? No. Patient's initial sepsis screen is negative. Risk Assessment: Do you want to hurt yourself or someone else? Patient reports no desire to harm self or others. Onset of symptoms was October 25, 2020. Care prior to arrival: None. Transition of care: patient was not received from another setting of care. 11:20 Method Of Arrival: Wheelchair jl7 11:20 Acuity: JOLANTA 3 jl7 Triage Assessment: 11:22 General: Appears in no apparent distress. uncomfortable, Behavior is calm, cooperative, jl7 appropriate for age. Pain: Complains of pain in low back area Pain currently is 1 out of 10 on a pain scale. Neuro: Level of Consciousness is awake, alert, obeys commands, Oriented to person, place, time, situation. Cardiovascular: Patient's skin is warm and dry. Respiratory: Airway is patent Respiratory effort is even, unlabored, Respiratory pattern is regular, symmetrical. Derm: Skin is pink, warm \T\ dry. Historical: - Allergies: 11:22 No Known Allergies; jl7 - Home Meds: 11:22 sotalol Oral [Active]; gabapentin Oral [Active]; Eliquis Oral [Active]; Benicar Oral jl7 [Active]; - PMHx: 11:22 Atrial Fib; CVA; 12/2015; enlarged prostate; Hypertension; Kidney stones; jl7 - PSHx: 11:22 back sx; prostate sx; Hernia repair; jl7 - Immunization history:: Adult Immunizations up to date. - Social history:: Smoking status: Patient denies any tobacco usage or history of. Patient/guardian denies using alcohol, street drugs, The patient lives with family. - Family history:: not pertinent. Screenin:30 Abuse screen: Denies threats or abuse. Denies injuries from another. Nutritional jl7 screening: No deficits noted. Tuberculosis screening: No symptoms or risk factors identified. Fall Risk IV access (20 points). Gait- Weak (10 pts.). Total Sandoval Fall Scale indicates Low Risk Score (25-44 pts). Fall prevention measures have been instituted. Side Rails Up X 2 Placed close to Nursing Station Frequent Obs/Assesments occuring Family Present and informed to notify staff if they need to leave bedside As available Patient and Family Educated on Fall Prevention Program and strategies. Assessment: 11:30 General: See triage assessment. jl7 12:30 Reassessment: Patient appears in no apparent distress at this time. No changes from 7 previously documented assessment. Patient and/or family updated on plan of care and expected duration. Pain level reassessed. Patient is alert, oriented x 3, equal unlabored respirations, skin warm/dry/pink. 13:30 Reassessment: Patient appears in no apparent distress at this time. No changes from 7 previously documented assessment. Patient and/or family updated on plan of care and expected duration. Pain level reassessed. Patient is alert, oriented x 3, equal unlabored respirations, skin warm/dry/pink. 14:30 Reassessment: Patient appears in no apparent distress at this time. No changes from [facility] previously documented assessment. Patient and/or family updated on plan of care and expected duration. Pain level reassessed. Patient is alert, oriented x 3, equal unlabored respirations, skin warm/dry/pink. Vital Signs: 11:20 BP 177 / 90; Pulse 62; Resp 19; Temp 97.4; Pulse Ox 99% ; Weight 99.79 kg; Height 6 ft. jl7 2 in. (187.96 cm); Pain 1/10; 15:03 BP 168 / 79; Pulse 65; Resp 17; Pulse Ox 100% ; jl7 11:20 Body Mass Index 28.25 (99.79 kg, 187.96 cm) jl7 ED Course: 11:03 Patient arrived in ED. ds1 11:06 David Damon, JAYASHREE is Primary Nurse. jl7 11:11 Sintia Hankins MD is Attending Physician. ma2 11:21 Triage completed. jl7 11:22 Arm band placed on right wrist. jl7 11:25 Initial lab(s) drawn, by me, sent to lab. Inserted saline lock: 20 gauge in right dh3 antecubital area, using aseptic technique. Blood collected. 11:30 Patient has correct armband on for positive identification. Placed in gown. Bed in low jl7 position. Call light in reach. Side rails up X 1. Pulse ox on. NIBP on. Warm blanket given. 12:07 Abdomen In Process Unspecified. EDMS 13:47 initiated a transfer with [facility] from the [facility]. eb 14:01 connected the urologist money examiner for [facility] with Dr. Jeong for patient eb transfer consultation. 14:[address] Das the hospitalist money examiner for [facility] with Dr. Hankins for eb patient transfer consultation. 14:14 administrative approval given by David Villalba Rn/ patient has been accepted to [facility] bed 1619/ Dr. Das has accepted the patient in transfer/ report to be called to the transfer center at [phone]. 15:05 No provider procedures requiring assistance completed. Patient transferred, IV remains jl7 in place. intact, No redness/swelling at site. Administered Medications: 13:26 Drug: NS 0.9% 500 ml Route: IV; Rate: 1 bolus; Site: right antecubital; jl7 14:00 Follow up: Response: No adverse reaction; IV Status: Completed infusion jl7 14:06 CANCELLED (na): Magnesium Sulfate 2 grams IVPB once over 2 hrs ma2 Outcome: 14:15 ER care complete, transfer ordered by . ma2 15:56 Transferred by ground EMS to [facility], Transfer form completed. jl7 X-rays sent w/ patient. 15:56 Condition: stable 15:56 Discharge instructions given to patient, family, Instructed on the need for transfer, Demonstrated understanding of instructions. 16:02 Patient left the ED. jl7 Signatures: Dispatcher [employer] EDIL Ada Coats ds1 David Damon RN RN jl7 Alix Saavedra 3 Sintia Hankins MD MD id2 Roseanna Rosa
--- NOTE | 2020-10-26 14:16 | EDPHYS ---
Physician Documentation [facility] Name: Madi Manning Age: 84 yrs Sex: Male : 1935 Arrival Date: 10/26/2020 Time: 11:03 Bed 13 Private MD: ED Physician Sintia Hankins HPI: 10/26 13:20 This 84 yrs old Male presents to ER via Wheelchair with complaints of Blood ma2 in Urine. 13:20 hematuria . Onset: The symptoms/episode began/occurred gradually, 1 day(s) ago. ma2 Severity of symptoms: At their worst the symptoms were mild in the emergency department the symptoms are unchanged. The patient has not experienced similar symptoms in the past. Historical: - Allergies: : No Known Allergies; jl7 - Home Meds: 11:22 sotalol Oral [Active]; gabapentin Oral [Active]; Eliquis Oral [Active]; Benicar Oral jl7 [Active]; - PMHx: 11:22 Atrial Fib; CVA; 12/2015; enlarged prostate; Hypertension; Kidney stones; jl7 - PSHx: 11:22 back sx; prostate sx; Hernia repair; jl7 - Immunization history:: Adult Immunizations up to date. - Social history:: Smoking status: Patient denies any tobacco usage or history of. Patient/guardian denies using alcohol, street drugs, The patient lives with family. - Family history:: not pertinent. ROS: 13:20 Constitutional: Negative for fever, chills, and weight loss. ma2 13:20 All other systems are negative. Exam: 13:20 Constitutional: This is a well developed, well nourished patient who is awake, alert, ma2 and in no acute distress. Head/Face: Normocephalic, atraumatic. Eyes: Pupils equal round and reactive to light, extra-ocular motions intact. Lids and lashes normal. Conjunctiva and sclera are non-icteric and not injected. Cornea within normal limits. Periorbital areas with no swelling, redness, or edema. ENT: Nares patent. No nasal discharge, no septal abnormalities noted. Tympanic membranes are normal and external auditory canals are clear. Oropharynx with no redness, swelling, or masses, exudates, or evidence of obstruction, uvula midline. Mucous membranes moist. Neck: Trachea midline, no thyromegaly or masses palpated, and no cervical lymphadenopathy. Supple, full range of motion without nuchal rigidity, or vertebral point tenderness. No Meningismus. Chest/axilla: Normal chest wall appearance and motion. Nontender with no deformity. No lesions are appreciated. Cardiovascular: Regular rate and rhythm with a normal S1 and S2. No gallops, murmurs, or rubs. Normal PMI, no JVD. No pulse deficits. Respiratory: Lungs have equal breath sounds bilaterally, clear to auscultation and percussion. No rales, rhonchi or wheezes noted. No increased work of breathing, no retractions or nasal flaring. Abdomen/GI: Soft, non-tender, with normal bowel sounds. No distension or tympany. No guarding or rebound. No evidence of tenderness throughout. Male : Normal genitalia with no discharge or lesions. has gross hematuria Skin: Warm, dry with normal turgor. Normal color with no rashes, no lesions, and no evidence of cellulitis. MS/ Extremity: Pulses equal, no cyanosis. Neurovascular intact. Full, normal range of motion. Neuro: Awake and alert, GCS 15, oriented to person, place, time, and situation. Cranial nerves II-XII grossly intact. Motor strength 5/5 in all extremities. Sensory grossly intact. Cerebellar exam normal. Normal gait. Vital Signs: 11:20 BP 177 / 90; Pulse 62; Resp 19; Temp 97.4; Pulse Ox 99% ; Weight 99.79 kg; Height 6 ft. jl7 2 in. (187.96 cm); Pain 1/10; 15:03 BP 168 / 79; Pulse 65; Resp 17; Pulse Ox 100% ; jl7 11:20 Body Mass Index 28.25 (99.79 kg, 187.96 cm) jl7 MDM: 11:11 Patient medically screened. ma2 13:20 Differential Diagnosis painless hematuria, likely uti vs kidney stone vs kidney lesion ma2 vs hematuria secondary to aliquis . Data reviewed: vital signs, nurses notes. Counseling: I had a detailed discussion with the patient and/or guardian regarding: the historical points, exam findings, and any diagnostic results supporting the discharge/admit diagnosis, the presence of at least one elevated blood pressure reading (>120/80) during this emergency department visit, the need for outpatient follow up. Response to treatment: the patient's symptoms have markedly improved after treatment. 13:20 ED course: patient has uretric illdefined mass likely brood clot measures 2x2 cm, with ma2 severe hydronephrosis and fernando creatinien 1.7, his hb is normal . 14:11 ED course: no urologist available in our hospital, will transfer for higher level of [facility] caer, discussed with dr. Kaur, urologist and accepted by dr. jessica . 10/26 11:12 Order name: Basic Metabolic Panel; Complete Time: 12:04 [facility] 10/26 11:12 Order name: CBC with Diff; Complete Time: 12:04 [facility] 10/26 11:12 Order name: Hepatic Function; Complete Time: 12:04 [facility] 10/26 11:12 Order name: Lipase; Complete Time: 12:04 [facility] 10/26 11:12 Order name: PT-INR; Complete Time: 12:04 [facility] 10/26 14:06 Order name: Magnesium [facility] 10/26 11:12 Order name: IV Saline Lock; Complete Time: 11:28 [facility] 10/26 11:12 Order name: Labs collected and sent; Complete Time: 11: [facility] 10/26 11:59 Order name: Abdomen ; Complete Time: 12:59 EDMS Administered Medications: 13:26 Drug: NS 0.9% 500 ml Route: IV; Rate: 1 bolus; Site: right antecubital; 7 14:00 Follow up: Response: No adverse reaction; IV Status: Completed infusion [facility] 14:06 CANCELLED (na): Magnesium Sulfate 2 grams IVPB once over 2 hrs [facility] Disposition: 10/26/20 14:[address] [facility]. Diagnosis are Hematuria, Hydronephrosis with ureteral stricture, not elsewhere classified - left uretric mass. - Reason for transfer: Higher level of care. - Accepting physician is Dr. Jessica. - Condition is Stable. - Problem is new. - Symptoms are unchanged. Signatures: Dispatcher [employer] EDMS David Damon RN RN jl7 Sintia Hankins MD MD nd2 Corrections: (The following items were deleted from the chart) 11:59 11:32 Abdomen Pelvis W Con+CT.RAD.BRZ ordered. EDMS EDMS 14:06 14:06 Magnesium Sulfate 2 grams IVPB once over 2 hrs ordered. ma2 ma2 14:15 14:15 10/26/2020 14:15 Transfer ordered to [facility]. Diagnosis is ma2 Hematuria; Hydronephrosis with ureteral stricture, not elsewhere classified - left uretric mass. Reason for transfer: Higher level of care. Accepting physician is Dr. Jessica. Condition is Stable. Problem is new. Symptoms are unchanged. ma2 16:02 14:15 10/26/2020 14:[address] [facility]. jl7 Diagnosis is Hematuria; Hydronephrosis with ureteral stricture, not elsewhere classified - left uretric mass. Reason for transfer: Higher level of care. Accepting physician is Dr. Jessica. Condition is Stable. Problem is new. Symptoms are unchanged. ma2
[2020-10-26 16:51] VITALS: TEMP 97.4
[2020-10-26 16:53] VITALS: BP 168/79; O2SAT 100
== END 2020-10-26 16:02 | disposition short-term general hospital (02) ==
LOC: ER 11:01
DX: N13.1 Hydronephrosis with ureteral stricture, not elsewhere classified (principal); I10 Essential (primary) hypertension; I48.91 Unspecified atrial fibrillation; Z79.01 Long term (current) use of anticoagulants; Z87.442 Personal history of urinary calculi; Z86.73 Personal history of transient ischemic attack (TIA), and cerebral infarction without residual deficits
CPT/HCPCS: 85025; 80048; 36415; 83735; 85610; 80076; 83690; 74176; 96360; 99285; J7040

== ENCOUNTER 2021-01-10 10:12 | Observation (INO) | payer OTHER, MEDICARE ==
[2021-01-10 11:17] LABS: Absolute Lymphocytes (CBC) 0.9 K/uL (0.7-4.9); Basophils % 0.2 % (0-1.3); Hematocrit 43.1 % (39.6-49.0); Lymphocytes % 11.9 % (15.3-44.8); MPV 9.7 fL (7.6-11.3); RBC Red Blood Cell Count 4.86 M/uL (4.33-5.43)
[2021-01-10 11:30] LABS: Protime INR 1.35
[2021-01-10 11:37] LABS: Albumin 3.1 g/dL (3.4-5.0); Bilirubin Direct 0.3 mg/dL (0-0.2); Bilirubin Total 0.8 mg/dL (0.2-1.0); Magnesium 2.3 mg/dL (1.8-2.4); Protein, Total 7.9 g/dL (6.4-8.2); Troponin (Emerg Dept Use Only) 0.07 ng/mL (0.0-0.045)
[2021-01-10 12:09] LABS: SARS-COV-2 RT PCR NEGATIVE (NEGATIVE)
--- NOTE | 2021-01-10 12:23 | RAD REPORT ---
EXAM DESCRIPTION: RAD - Chest Single View - 01/10/2021 11:52 am CLINICAL HISTORY: DYSPNEA Chest pain. COMPARISON: Chest Pa And Lat (2 Views) dated 04/25/2020; Abdomen 1 View (KUB) dated 02/07/2019; Abdome n 1 View (KUB) dated 02/01/2019; Chest Single View dated 02/01/2019 FINDINGS: Portable technique limits examination quality. Interstitial markings are mildly prominent. Trace pleural effusions are noted. The heart is normal in size. No displaced fractures. IMPRESSION: Minimal interstitial pulmonary edema.
--- NOTE | 2021-01-10 12:45 | ER ---
Nurse's Notes [facility] Name: Madi Manning Age: 85 yrs Sex: Male : 1935 Arrival Date: 01/10/2021 Time: 10:14 Bed 6 Private MD: Goyo Salazar V Diagnosis: Elevated troponin ;Dyspnea;Malaise and fatigue Presentation: 01/10 10:34 Chief complaint: Patient states: is getting SOB and fatigue, started the day before iw yesterday, denies cough, c/o SOB on exertion, denies hx of COPD or CHF, has hx of bladder cancer. Coronavirus screen: difficulty breathing, fatigue, Client presents with at least one sign or symptom that may indicate coronavirus-19. Ebola Screen: Patient negative for fever greater than or equal to 101.5 degrees Fahrenheit, and additional compatible Ebola Virus Disease symptoms Patient denies exposure to infectious person. Patient denies travel to an Ebola-affected area in the 21 days before illness onset. No symptoms or risks identified at this time. Initial Sepsis Screen: Does the patient meet any 2 criteria? No. Patient's initial sepsis screen is negative. Does the patient have a suspected source of infection? No. Patient's initial sepsis screen is negative. Risk Assessment: Do you want to hurt yourself or someone else? Patient reports no desire to harm self or others. Onset of symptoms was January 08, 2021. 10:34 Method Of Arrival: Wheelchair iw 10:34 Acuity: JOLANTA 3 iw Triage Assessment: 10:40 General: Appears distressed, ill, Behavior is cooperative, appropriate for age, bp anxious. Pain: Denies pain. EENT: No deficits noted. Neuro: No deficits noted. Cardiovascular: Rhythm is sinus rhythm. Respiratory: Reports shortness of breath cough that is Onset: The symptoms/episode began/occurred yesterday, the patient has moderate shortness of breath. GI: No signs and/or symptoms were reported involving the gastrointestinal system. : No signs and/or symptoms were reported regarding the genitourinary system. Derm: No deficits noted. Musculoskeletal: No deficits noted. Historical: - Allergies: 10:39 No Known Allergies; iw - Home Meds: 10:39 losartan 25 mg oral tab once daily [Active]; sotalol 80 mg oral tab daily [Active]; iw Eliquis 5 mg oral tab daily [Active]; gabapentin Oral as needed [Active]; - PMHx: 10:39 Atrial Fib; CVA; 12/2015; enlarged prostate; Hypertension; Kidney stones; iw - PSHx: 10:39 back sx; prostate sx; Hernia repair; iw - Immunization history:: Adult Immunizations up to date. - Social history:: Smoking status: unknown. Screenin:00 Abuse screen: Denies threats or abuse. Denies injuries from another. Nutritional bp screening: No deficits noted. Tuberculosis screening: No symptoms or risk factors identified. Fall Risk None identified. Assessment: 10:40 General: SEE TRIAGE NOTE. bp 12:30 Reassessment: No changes from previously documented assessment. Patient and/or family bp updated on plan of care and expected duration. Pain level reassessed. Cardiovascular: Rhythm is sinus rhythm. Respiratory: Airway is patent Respiratory effort is even, labored, Breath sounds are coarse. 14:00 Reassessment: No changes from previously documented assessment. Patient and/or family bp updated on plan of care and expected duration. Pain level reassessed. ADMIT INITIATED. 15:00 Reassessment: No changes from previously documented assessment. Patient and/or family bp updated on plan of care and expected duration. Pain level reassessed. ADMIT IN PROCESS. 16:18 Reassessment: ADMIT COMPLETE, PT CARIDAD. bp Vital Signs: 10:34 BP 119 / 70; Pulse 66; Resp 18 S; Temp 97.4; Pulse Ox 100% on R/A; Weight 102.06 kg; iw Height 6 ft. 1 in. (185.42 cm); 11:00 BP 166 / 85; Pulse 60; Resp 23; Pulse Ox 99% ; bp 12:30 BP 131 / 76; Pulse 67; Resp 16; Pulse Ox 100% ; bp 14:00 BP 157 / 95; Pulse 87; Resp 23; Pulse Ox 98% ; bp 15:00 BP 140 / 88; Pulse 81; Resp 25; Pulse Ox 99% ; bp 10:34 Body Mass Index 29.69 (102.06 kg, 185.42 cm) ED Course: 10:14 Patient arrived in ED. ag5 10:14 Goyo Salazar MD is Private Physician. ag5 10:19 [facility] kb 10:19 Miles Deluca MD is Attending Physician. kb 10:37 Triage completed. iw 10:45 Patient placed in an exam room, on a stretcher, on cardiac rn, on pulse oximetry. jl7 10:47 Nemesio Ga, RN is Primary Nurse. bp 11:01 Patient has correct armband on for positive identification. Bed in low position. Call [facility] light in reach. Side rails up X2. Warm blanket given. food mixer assembler on. Pulse ox on. NIBP on. 11:02 COVID swab sent to lab. Flu and/or RSV swab sent to lab. [facility] 11:08 Initial lab(s) drawn, by ny, sent to lab. Inserted saline lock: 20 gauge in right jl7 forearm, using aseptic technique. Blood collected. 11:52 Chest Single View XRAY In Process Unspecified. EDMS 12:43 Goyo Salazar MD is Hospitalizing Provider. kb 16:04 No provider procedures requiring assistance completed. Patient admitted, IV remains in jl7 place. intact, No redness/swelling at site. Administered Medications: 13:00 Drug: Lasix 20 mg Route: IVP; Site: right forearm; bp 15:11 Follow up: Response: No adverse reaction bp Outcome: 12:44 Decision to Hospitalize by Provider. kb 16:04 Admitted to Tele accompanied by tech, via wheelchair, room 209, with chart, Report jl7 called to JAYASHREE Asencio 16:04 Condition: stable 16:04 Discharge instructions given to patient, Instructed on the need for admit, Demonstrated understanding of instructions. 16:19 Patient left the ED. [facility] Signatures: Dispatcher [employer] EDMS Becca Lai, DEMIAN BEHAVIORAL ASSISTANT-CkAlexandra Saenz, RN RN Deena Richardson [facility] David Damon RN RN 7 Nemesio Ga, RN RN Juan Galdamez ag5 Corrections: (The following items were deleted from the chart) 10:37 10:34 BP 119 / 70; Pulse 66bpm; Resp 18bpm; Spontaneous; Temp 97.4F; 102.06 kg; Height iw 6 ft. 1 in.; BMI: 29.6; iw 11:26 11:01 CORONAVIRUS+MR.LAB.MUSA drawn and sent. [facility] EDMS 11:27 11:01 Influenza Screen (A \T\ B)+BA.LAB.MUSA drawn and sent. [facility] EDNY
--- NOTE | 2021-01-10 12:45 | EDPHYS ---
Physician Documentation [facility] Name: Madi Manning Age: 85 yrs Sex: Male : 1935 Arrival Date: 01/10/2021 Time: 10:14 Bed 6 Private MD: Goyo Salazar V ED Physician Miles Deluca HPI: 01/10 11:51 This 85 yrs old Male presents to ER via Wheelchair with complaints of kb Shortness Of Breath. 11:51 The patient has not experienced similar symptoms in the past. The patient has not kb recently seen a physician. 11:52 The patient has shortness of breath at rest. Onset: The symptoms/episode began/occurred kb 3 day(s) ago. Duration: The symptoms are intermittent. The patient's shortness of breath is aggravated by exertion, is alleviated by nothing. Associated signs and symptoms: Pertinent positives: fatigue. Severity of symptoms: At their worst the symptoms were moderate in the emergency department the symptoms are unchanged. Pt reports fatigue and shortness of breath for 3 days. Denies fever, cough, congestion, chest pain. Historical: - Allergies: 10:39 No Known Allergies; iw - Home Meds: 10:39 losartan 25 mg oral tab once daily [Active]; sotalol 80 mg oral tab daily [Active]; iw Eliquis 5 mg oral tab daily [Active]; gabapentin Oral as needed [Active]; - PMHx: 10:39 Atrial Fib; CVA; 12/2015; enlarged prostate; Hypertension; Kidney stones; iw - PSHx: 10:39 back sx; prostate sx; Hernia repair; iw - Immunization history:: Adult Immunizations up to date. - Social history:: Smoking status: unknown. ROS: 11:51 Cardiovascular: Negative for chest pain, palpitations, and edema, Abdomen/GI: Negative kb for abdominal pain, nausea, vomiting, diarrhea, and constipation, Back: Negative for injury and pain, MS/Extremity: Negative for injury and deformity, Skin: Negative for injury, rash, and discoloration, Neuro: Negative for headache, weakness, numbness, tingling, and seizure. 11:51 Constitutional: Positive for fatigue. 11:51 Respiratory: Positive for shortness of breath, Negative for cough. Exam: 11:50 Constitutional: This is a well developed, well nourished patient who is awake, alert, kb and in no acute distress. Head/Face: Normocephalic, atraumatic. Chest/axilla: Normal chest wall appearance and motion. Nontender with no deformity. No lesions are appreciated. Cardiovascular: Regular rate and rhythm with a normal S1 and S2. No gallops, murmurs, or rubs. Normal PMI, no JVD. No pulse deficits. Respiratory: Lungs have equal breath sounds bilaterally, clear to auscultation and percussion. No rales, rhonchi or wheezes noted. No increased work of breathing, no retractions or nasal flaring. Abdomen/GI: Soft, non-tender, with normal bowel sounds. No distension or tympany. No guarding or rebound. No evidence of tenderness throughout. Skin: Warm, dry with normal turgor. Normal color with no rashes, no lesions, and no evidence of cellulitis. MS/ Extremity: Pulses equal, no cyanosis. Neurovascular intact. Full, normal range of motion. Neuro: Awake and alert, GCS 15, oriented to person, place, time, and situation. Cranial nerves II-XII grossly intact. Motor strength 5/5 in all extremities. Sensory grossly intact. Cerebellar exam normal. Normal gait. Vital Signs: 10:34 BP 119 / 70; Pulse 66; Resp 18 S; Temp 97.4; Pulse Ox 100% on R/A; Weight 102.06 kg; iw Height 6 ft. 1 in. (185.42 cm); 11:00 BP 166 / 85; Pulse 60; Resp 23; Pulse Ox 99% ; bp 12:30 BP 131 / 76; Pulse 67; Resp 16; Pulse Ox 100% ; bp 14:00 BP 157 / 95; Pulse 87; Resp 23; Pulse Ox 98% ; bp 15:00 BP 140 / 88; Pulse 81; Resp 25; Pulse Ox 99% ; bp 10:34 Body Mass Index 29.69 (102.06 kg, 185.42 cm) iw MDM: 10:41 Patient medically screened. kb 11:51 Data reviewed: vital signs, nurses notes. Data interpreted: Pulse oximetry: on room air kb is 99 %. Interpretation: normal. 12:43 Counseling: I had a detailed discussion with the patient and/or guardian regarding: the kb historical points, exam findings, and any diagnostic results supporting the discharge/admit diagnosis, lab results, radiology results, the need for further work-up and treatment in the hospital. Physician consultation: Goyo Salazar MD was called at 12:43, regarding admission, to the telemetry unit. patient's condition, and will see patient in inpatient room. 01/10 10:48 Order name: Basic Metabolic Panel; Complete Time: 11:38 kb 01/10 10:48 Order name: CBC with Diff; Complete Time: 11:38 kb 01/10 10:43 Order name: Chest Single View XRAY; Complete Time: 12:23 kb 01/10 10:48 Order name: LFT's; Complete Time: 11:38 kb 01/10 10:48 Order name: Magnesium; Complete Time: 11:38 kb 01/10 10:48 Order name: NT PRO-BNP; Complete Time: 11:38 kb 01/10 10:48 Order name: PT-INR; Complete Time: 11:38 kb 01/10 10:48 Order name: Troponin (emerg Dept Use Only); Complete Time: 11:38 kb 01/10 12:09 Order name: COVID-19/FLU A+B; Complete Time: 12:14 EDMS 01/10 12:52 Order name: CT Chest Angio kb 01/10 10:43 Order name: EKG; Complete Time: 10:46 kb 01/10 10:43 Order name: EKG - Nurse/Tech; Complete Time: 10:57 kb 01/10 10:48 Order name: Cardiac monitoring; Complete Time: 10:57 kb 01/10 10:48 Order name: IV Saline Lock; Complete Time: 11:08 kb 01/10 10:48 Order name: Labs collected and sent; Complete Time: 11:08 kb 01/10 10:48 Order name: O2 Per Protocol; Complete Time: 10:57 kb 01/10 10:48 Order name: O2 Sat Monitoring; Complete Time: 10:57 kb 01/10 12:17 Order name: EKG; Complete Time: 12:17 kb 01/10 13:52 Order name: CT; Complete Time: 13:55 EDMS EC:50 Rate is 74 beats/min. Rhythm is regular. QRS [place] is Normal. QRS interval is normal at kb 84 msec. QT interval is normal at 416 msec. Clinical impression: Atrial Flutter. Administered Medications: 13:00 Drug: Lasix 20 mg Route: IVP; Site: right forearm; bp 15:11 Follow up: Response: No adverse reaction bp Disposition: 16:55 Co-signature as Attending Physician, Miles Deluca MD I agree with the assessment and kdr plan of care. Disposition: 01/10/21 12:44 Hospitalization ordered by Goyo Salazar for Observation. Preliminary diagnosis are Elevated troponin , Dyspnea, Malaise and fatigue. - Bed requested for Telemetry/MedSurg (observation). - Status is Observation. jl7 - Condition is Stable. - Problem is new. - Symptoms are unchanged. Signatures: Dispatcher [employer] EDMS Becca Lai, INSURANCE ACCOUNT EXECUTIVE-C INSURANCE ACCOUNT EXECUTIVE-Ckb Pyaton Martinez, RN RN dw Miles Deluca MD MD kdr Alexandra Montemayor, RN RN iw David Damon RN RN jl7 Nemesio Ga RN RN bp Corrections: (The following items were deleted from the chart) 10:44 10:44 CORONAVIRUS ordered. EDMS EDMS 10:44 10:44 Influenza Screen (A ordered. EDMS EDMS 11:26 10:44 CORONAVIRUS+MR.LAB.BRZ ordered. EDMS EDMS 11:27 10:44 Influenza Screen (A \T\ B)+BA.LAB.BRZ ordered. EDSD EDMS 12:34 12:17 EKG - Nurse/Tech ordered. kb kb 15:18 12:44 Hospitalization Ordered by Goyo Salazar MD for Observation. Preliminary diagnosis dw is Elevated troponin ; Dyspnea; Malaise and fatigue. Bed requested for Telemetry/MedSurg (observation). Status is Observation. Condition is Stable. Problem is new. Symptoms are unchanged. kb 16:19 15:18 01/10/2021 12:44 Hospitalization Ordered by Goyo Salazar MD for Observation. jl7 Preliminary diagnosis is Elevated troponin ; Dyspnea; Malaise and fatigue. Bed requested for Telemetry/MedSurg (observation). Status is Observation. Condition is Stable. Problem is new. Symptoms are unchanged. dw
[2021-01-10] MEDS ORDERED: FUROSEMIDE 20 MG/ 2ML VIAL ONE (13:28)
--- NOTE | 2021-01-10 13:52 | RAD REPORT ---
EXAM DESCRIPTION: CT - Chest Angio - 01/10/2021 1:26 pm CLINICAL HISTORY: DYSPNEA COMPARISON: Chest Single View dated 01/10/2021 TECHNIQUE: Dynamically enhanced 3 mm thick images of the chest were obtained during administration o f approximately 150mL Isovue 370 IV contrast. Coronal and oblique MIP reconstruction images were gene rated and reviewed. Exam utilizes a protocol to evaluate the pulmonary arterial tree. All CT scans are performed using dose optimization technique as appropriate and may include automated exposure control or mA/KV adjustment according to patient size. FINDINGS: No pulmonary emboli are identified. The aorta as imaged shows no acute or suspicious finding. No pericardial thickening or effusion. No dense mass consolidations seen. There is calcified granuloma in the right middle lobe. Subpleural fibrotic stranding and nodularity are present each lung base potentially masking a minimal infiltrate . Small reactive type right hilar lymph nodes are present. Minimal peribronchial thickening is seen. No pleural effusion or pleural thickening. No mediastinal or hilar suspicious masses. No chest wall masses or abnormal axillary lymphadenopathy. IMPRESSION: No pulmonary emboli identified. Fibrotic stranding is present in the lower lung james. Patient has bronchial wall thickening and sma ll reactive lymph nodes present that may indicate viral infiltrate or bronchitis.Lung parenchymal fin dings are not suspicious for COVID-19 pneumonia.
[2021-01-10 17:29] VITALS: BMI 4296.1
[2021-01-10] MEDS ORDERED: GABAPENTIN 300 MG CAP PO SCH (22:00)
[2021-01-11 06:05] LABS: Absolute Lymphocytes (CBC) 0.8 K/uL (0.7-4.9); Basophils % 1.4 % (0-1.3); Hematocrit 41.2 % (39.6-49.0); Lymphocytes % 9.9 % (15.3-44.8); MPV 10.1 fL (7.6-11.3)
[2021-01-11] MEDS ORDERED: LOSARTAN POTASSIUM 50 MG TABLET PO SCH (09:00)
[2021-01-11] MEDS ORDERED: HOME MED 1 EA UNK (Apixaban [Eliquis] 5 MG Tablet) PO SCH (09:00)
[2021-01-11] MEDS ORDERED: APIXABAN 5 MG TABLET PO SCH (09:00)
[2021-01-11] MEDS ORDERED: ASPIRIN EC 81 MG TAB PO SCH (09:00)
[2021-01-11] MEDS ORDERED: HOME MED 1 EA UNK (Losartan Potassium [Cozaar] 25 MG Tablet) PO SCH (09:00)
[2021-01-11] MEDS ORDERED: SOTALOL HCL 80 MG TAB PO SCH (09:00)
[2021-01-11] MEDS ORDERED: FUROSEMIDE 20 MG/ 2ML VIAL IV SCH (09:00)
[2021-01-11] MEDS ORDERED: SOTALOL HCL 80 MG PO SCH (09:00)
[2021-01-11 12:05] VITALS: BP 156/86; TEMP 97.9
--- NOTE | 2021-01-11 12:21 | P.SSS ---
Patient History Date of Service: 01/11/21 Reason for admission: DYSPNEA History of Present Illness: MR. WHELAN COMES WITH DYSPNEA, HE IS BACK TO HIS BASELINE. I ASKED NURSE TO GIVE HIM LASIX IV CT SCAN WAS NEG FOR PE OR PNEUMONIA. IT WORKED. THEY PUT HIM IN FOR MILD TROPONIN ELEVATION FROM ER. HE HAS NO CHEST PAIN AND MILD ELEVATION CAN HAPPEN FROM CARDIAC OR CARDIOPULMONARY STRAIN OF ANY KIND. 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 HE IS GOING TO [facility] FOR THERAPY. Allergies No Known Allergies Allergy (Verified 01/10/21 16:30) Home Medications: Apixaban [Eliquis] 5 mg PO BID 01/31/19 Gabapentin 600 mg PO BEDTIME 01/31/19 Sotalol HCl [Sotalol AF] 80 mg PO DAILY 01/31/19 Losartan Potassium [Cozaar] 25 mg PO DAILY 01/10/21 Furosemide 20 mg PO DAILY #90 tablet 01/11/21 - Past Medical/Surgical History Diabetic: No -: Stroke -: Neuropathy -: Hypertension -: A fib -: Back surgery 2 -: Hernia surgery 3 - Family History Father -: Lung disease Mother -: Other (see notes) Notes: Alzheimer's - Social History Smoking Status: Former smoker Alcohol use: Yes CD- Drugs: No Caffeine use: No Place of Residence: Home Physical Examination - Vital Signs Temperature: 97.9 F Blood Pressure: 156/86 Pulse: 85 Respirations: 20 Pulse Ox (%): 94 - Physical Exam General: Mild distress, Obese HEENT: Atraumatic, PERRLA, Mucous membr. moist/pink, EOMI, Sclerae nonicteric Neck: Supple, 2+ carotid pulse no bruit, No LAD, Without JVD or thyroid abnormality Respiratory: Clear to auscultation bilaterally, Normal air movement Cardiovascular: Regular rate/rhythm, Normal S1 S2 Gastrointestinal: Normal bowel sounds, No tenderness Musculoskeletal: No tenderness Integumentary: No rashes Neurological: Normal gait, Normal speech, Normal strength at 5/5 x4 extr, Normal tone, Normal affect Lymphatics: No axilla or inguinal lymphadenopathy - Disposition Disposition: ROUTINE DISCHARGE Condition: FAIR
[2021-01-11 12:23] VITALS: O2SAT 94
[2021-01-11] MEDS ORDERED: GABAPENTIN 300 MG CAP PO SCH (21:00)
[2021-01-11] MEDS ORDERED: GUAIFENESIN 600 MG SA TAB PO SCH (21:00)
[2021-01-11] MEDS ORDERED: HOME MED 1 EA UNK (Gabapentin [Gabapentin] 600 MG Tablet) PO SCH (21:00)
--- NOTE | 2021-01-13 08:01 | EKG ---
Test Date: 2021-01-10 Test Time: 10:50:06 Cold Rolling Coordinator: ALEXANDER MEASUREMENT RESULTS: Intervals: Rate: 74 [place]: QRSD: 84 QT: 416 QTc: 461 [place]: P: [place]: QRS: 32 T: 44 INTERPRETIVE STATEMENTS: Atrial flutter with variable AV block Abnormal ECG Compared to ECG 01/28/2019 11:38:54 No significant changes Electronically Signed On 01-13-21 07:54:[address] JUDGE by Noah Oswald
== END 2021-01-11 13:21 | disposition home or self-care (01) ==
LOC: ER 10:12 → ERHOLD 12:51 → 2ND 16:05
PROVIDERS: ADMIT Internal Medicine; ATTEND Internal Medicine
DX: R06.00 Dyspnea, unspecified (principal); C64.9 Malignant neoplasm of unspecified kidney, except renal pelvis; Z86.73 Personal history of transient ischemic attack (TIA), and cerebral infarction without residual deficits; G62.9 Polyneuropathy, unspecified; I10 Essential (primary) hypertension; I48.91 Unspecified atrial fibrillation; Z20.822 Contact with and (suspected) exposure to COVID-19; Z87.891 Personal history of nicotine dependence; Z79.01 Long term (current) use of anticoagulants; R94.31 Abnormal electrocardiogram [ECG] [EKG]
CPT/HCPCS: 93005 ×2; 85025 ×2; 80048 ×2; 36415; 83735; 85610; 80076; 84484 ×3; 83880; 0240U; 71275; 71045; 96374; 99285; Q9967; J1940 ×2; G0378

== ENCOUNTER 2021-01-19 11:09 | Emergency (ER) | payer OTHER, MEDICARE ==
--- OUTSIDE RECORDS SUMMARY | 2021-01-19 11:12 | XMS REPORT | Clinical Summary ---
:1935 Author Organization [facility] Address [address] [place] [address] Care Team Providers Name Role Phone Anshu Salazarmarkyrahul Primary Care Provider Allergies No Known Allergies Medications Medication Sig Dispensed Refills Start Date End Date Status gabapentin Take 400 mg 0 Active (NEURONTIN) 400 by mouth as MG capsule needed . sotaloL Take 80 mg by 0 Active (BETAPACE) 80 MG mouth. tablet pregabalin Take 75 mg by 0 Activ e (LYRICA) 75 MG mouth 2 (two) capsule times daily. apixaban Take 1 tablet 60 tablet 1 11/01/2020 Activ e (ELIQUIS) 2.5 mg (2.5 mg Tab tablet total) by mouth 2 (two) times daily. losartan-hydroch Take 1 tablet 0 Discontinued lorothiazide by mouth. 0 (Error) (HYZAAR) 100-12.5 mg per tablet olmesartan-hydro Take 1 tablet 0 Discontinued chlorothiazide by mouth 0 (Stop Taking at (BENICAR HCT) daily. Discha rge) 40-12.5 mg per tablet apixaban Take 5 mg by 0 Discont inued (Eliquis) 5 mg mouth 2 (two) 0 ( Reorder) Tab tablet times daily. amLODIPine Take 1 tablet 30 tablet 1 11/01/2020 Disc ontinued (NORVASC) 10 MG (10 mg total) 0 tablet by mouth daily for 60 days. amLODIPine Take 1 tablet 30 tablet 1 11/01/2020 Expi red (NORVASC) 10 MG (10 mg total) 1 tablet by mouth daily for 60 days. cefdinir Take 1 10 capsule 0 11/01/2020 (OMNICEF) 300 MG capsule (300 0 capsule mg total) by mouth 2 (two) times daily for 5 days. Active Problems Problem Noted Date Gross hematuria 10/26/2020 Urinary retention 10/26/2020 Benign essential HTN 10/26/2020 Chronic atrial fibrillation 10/26/2020 Encounters Date Type Specialty Care Team Description 10/26/2020 - Hospital General Internal Moe Das, Benign essential HTN (Primary Dx); 11/01/2020 Encounter Medicine MD Chronic atrial fibrillation (HCC); Artemio Gross hematuria ; Crista Urinary retenti on; MD Katarina Ureteral mass; Asuncion Perdomo Hydronephro sis, unspecified hydronephrosis type; MD Camila Thrombocytopenia (HCC); Vinh Borden [facility]ro[facility]ial [facility] ([facility] MD Laurie after 01/19/2020 Family History Medical History Relation Name Comments No Known Problem Father No Known Problem Mother Relation Name Status Comments Father Mother Social History Tobacco Use Types Packs/Day Years Used Date Unknown If Ever Smoked Smokeless Tobacco: Never Used Sex Assigned at Date Recorded Not on file Last Filed Vital Signs Vital Sign Reading Time Taken Comments Blood Pressure 124/60 11/01/2020 8:15 AM [facility] [facility] Pulse 59 11/01/2020 8:15 AM [employer] Temperature 37 C (98.6 F) 11/01/2020 8:15 AM [employer] [facility] Respiratory Rate 18 11/01/2020 8:15 AM [employer] [facility] Oxygen Saturation 97% 11/01/2020 8:15 AM [employer] [facility] Inhaled Oxygen Concentration - - Weight 102.1 kg (225 lb) 10/26/2020 11:00 PM [employer] [facility] Height 188 cm (6' 2") 10/26/2020 11:00 PM [employer] [facility] Body Mass Index 28.89 10/26/2020 11:00 PM [employer] [facility] Plan of Treatment Health Maintenance Due Date Last Done Comments PNEUMOCOCCAL 65+ YRS (1 of 1 - [id number]) 2000 MEDICARE ANNUAL WELLNESS (YEAR 2 or FIRST YEAR if no 12/01/2001 IPPE) DEPRESSION SCREENING (12+) 11/30/2019 INFLUENZA VACCINE (#1) 2020 Procedures Procedure Name Priority Date/Time Associated Comments Diagnosis 2D ECHO W/ DOPPLER Pending 11/01/2020 9:45 Resul ts for this (CW/PW/COLOR) Discharge AM [employer] procedure are in the results section. CT NEEDLE BIOPSY Routine 10/31/2020 4:30 Results for this KIDNEY PM [employer] procedure are i n the results section. TISSUE EXAM AP Routine 10/31/2020 4:29 Results for this PM [employer] procedure are i n the results section. CT CHEST WITH IV Routine 10/31/2020 3:51 Results for this CONTRAST PM [employer] procedure are i n the results section. MAGNESIUM Routine 10/31/2020 3:47 Results for this AM [employer] procedure are i n the results section. PHOSPHORUS Routine 10/31/2020 3:47 Results for this AM [employer] procedure are i n the results section. BASIC METABOLIC Routine 10/31/2020 3:47 Results for this PANEL (7) AM [employer] procedure are i n the results section. CBC (HEMOGRAM ONLY) Routine 10/31/2020 3:47 Resu lts for this AM [employer] procedure are i n the results section. PERIPHERAL BLOOD Routine 10/30/2020 3:44 Results for this SMEAR - HOLD ONLY AM [employer] procedure are in the results section. VITAMIN B12 Routine 10/30/2020 3:44 Results for this AM [employer] procedure are i n the results section. FIBRINOGEN Routine 10/30/2020 3:44 Results for this AM [employer] procedure are i n the results section. D-DIMER Routine 10/30/2020 3:44 Results for this AM [employer] procedure are i n the results section. PT/APTT Routine 10/30/2020 3:44 Results for this AM [employer] procedure are i n the results section. MAGNESIUM Routine 10/30/2020 3:44 Results for this AM [employer] procedure are i n the results section. PHOSPHORUS Routine 10/30/2020 3:44 Results for this AM [employer] procedure are i n the results section. BASIC METABOLIC Routine 10/30/2020 3:44 Results for this PANEL (7) AM [employer] procedure are i n the results section. CBC (HEMOGRAM ONLY) Routine 10/30/2020 3:44 Resu lts for this AM [employer] procedure are i n the results section. CYTOLOGY AP Routine 10/29/2020 10:10 Results for this AM [employer] procedure are i n the results section. IR PERCUTANEOUS Routine 10/29/2020 9:44 Results for this NEPHROSTOMY TUBE AM [employer] procedure a re in PLACEMENT the results section. PROTHROMBIN TIME/INR Routine 10/29/2020 3:29 Res ults for this AM [employer] procedure are i n the results section. MAGNESIUM Routine 10/29/2020 3:29 Results for this AM [employer] procedure are i n the results section. PHOSPHORUS Routine 10/29/2020 3:29 Results for this AM [employer] procedure are i n the results section. BASIC METABOLIC Routine 10/29/2020 3:29 Results for this PANEL (7) AM [employer] procedure are i n the results section. CBC (HEMOGRAM ONLY) Routine 10/29/2020 3:29 Resu lts for this AM [employer] procedure are i n the results section. PLATELET COUNT Routine 10/28/2020 1:19 Results f or this PM [employer] procedure are i n the results section. MAGNESIUM Routine 10/28/2020 4:32 Results for this AM [employer] procedure are i n the results section. PHOSPHORUS Routine 10/28/2020 4:32 Results for this AM [employer] procedure are i n the results section. BASIC METABOLIC Routine 10/28/2020 4:32 Results for this PANEL (7) AM [employer] procedure are i n the results section. CBC (HEMOGRAM ONLY) Routine 10/28/2020 4:32 Resu lts for this AM [employer] procedure are i n the results section. HAPTOGLOBIN Routine 10/27/2020 12:56 Results for this PM [employer] procedure are i n the results section. LACTATE Routine 10/27/2020 12:52 Results for this DEHYDROGENASE (LDH) PM [employer] procedur e are in the results section. HEPATIC FUNCTION Routine 10/27/2020 12:52 Results for this PANEL PM [employer] procedure are i n the results section. CYTOLOGY AP Routine 10/27/2020 11:18 Results for this AM [employer] procedure are i n the results section. US RENAL COMPLETE SAM 10/27/2020 10:15 Result s for this AM [employer] procedure are i n the results section. CT ABDOMEN/PELVIS SAM 10/27/2020 9:05 Result s for this WITH & WITHOUT IV AM [employer] procedure are in CONTRAST the results section. (MANUAL Routine 10/27/2020 3:42 Results for this DIFFERENTIAL) AM [employer] procedure are in the results section. RETICULOCYTE COUNT Routine 10/27/2020 3:42 Resul ts for this AM [employer] procedure are i n the results section. PERIPHERAL BLOOD AP Routine 10/27/2020 3:42 Results for this SMEAR - PATHOLOGIST AM [employer] procedur e are in REVIEW the results section. APTT Routine 10/27/2020 3:42 Results for this AM [employer] procedure are i n the results section. PROTHROMBIN TIME/INR Routine 10/27/2020 3:42 Res ults for this AM [employer] procedure are i n the results section. MAGNESIUM Routine 10/27/2020 3:42 Results for this AM [employer] procedure are i n the results section. PHOSPHORUS Routine 10/27/2020 3:42 Results for this AM [employer] procedure are i n the results section. BASIC METABOLIC Routine 10/27/2020 3:42 Results for this PANEL (7) AM [employer] procedure are i n the results section. CBC (HEMOGRAM ONLY) Routine 10/27/2020 3:42 Resu lts for this AM [employer] procedure are i n the results section. SARS-COV2/RT-PCR Routine 10/26/2020 8:08 Results for this ([facility] REF LABS) PM [employer] procedure are in the results section. ABORH, MANUAL STAT 10/26/2020 8:07 Results fo r this PM [employer] procedure are i n the results section. URINALYSIS W/ REFLEX STAT 10/26/2020 6:46 Res ults for this URINE CULTURE PM [employer] procedure are in the results section. URINE CULTURE STAT 10/26/2020 6:46 Results fo r this PM [employer] procedure are i n the results section. ECG 12-LEAD Routine 10/26/2020 6:19 Results for this PM [employer] procedure are i n the results section. CBC W/PLT COUNT & STAT 10/26/2020 5:54 Result s for this AUTO DIFFERENTIAL PM [employer] procedure are in the results section. TYPE AND SCREEN, STAT 10/26/2020 5:54 Results for this AUTOMATED PM [employer] procedure are i n the results section. PHOSPHORUS STAT 10/26/2020 5:54 Results for this PM [employer] procedure are i n the results section. MAGNESIUM STAT 10/26/2020 5:54 Results for this PM [employer] procedure are i n the results section. COMPREHENSIVE STAT 10/26/2020 5:54 Results fo r this METABOLIC PANEL PM [employer] procedure ar e in the results section. CBC W/PLT COUNT & STAT 10/26/2020 5:54 Result s for this AUTO DIFFERENTIAL PM [employer] procedure are in the results section. after 01/19/2020 Results 2D Echo W/Doppler(CW/PW/Color) (11/01/2020 9:45 AM [employer]) Pathologist Sig nature Ejection Fraction 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 Clinical History HGB 13.8 HCT 41.0 % A-FIB, CVA, HTN, BPH S/P TURP, RECENT DX BLADDER CA Height: 74 inches Weight: 102.06 kg (225 lbs) BSA: 2.28 m^2 BMI: 28.89 kg/m^2 HR: 59 bpm BP: 124/60 mmHg Summary TECHNICALLY DIFFICULT STUDY. The LV endocardium is partially visualized. All Parasternal long axis measurements not possible. The left ventricle is chamber size (by PSLAX dimension) is normal (male - LVIDd 4.2-5.8cm) . All of the LV segments contract normally . LVEF by Santamaria's method of disk assessment is normal (>60%) . LV diastolic function is indeterminate. The right ventricular chamber size and systolic function are within normal limits. Unable to estimate peak systolic PA pressure; inadequate TR velocity signal. Signature Findings Left Ventricle The LV endocardium is partially visualized. All Parasternal long axis measurements not possible. The left ventricle is chamber size (by PSLAX dimension) is normal (male - LVIDd 4.2-5.8cm) . All of the LV segments contract normally . LVEF by Santamaria's method of disk assessment is normal (>60%) . LV diastolic function is indeterminate. Left Atrium LA size is mildly enlarged (35-41 ml/m2) . Right Ventricle The right ventricular chamber size and systolic function are within normal limits. Right Atrium RA size is mildly dilated. Aortic Valve Mild AoV cusp thickening. Mitral Valve Mild MV leaflet thickening. Tricuspid Valve TV structure is normal. Unable to estimate peak systolic PA pressure; inadequate TR velocity signal. Pulmonic Valve PV is not well visualized. Pericardium No significant pericardial effusion is visualized. IVC/SVC/PA/PV/Pleural The estimated RA pressure by IVC dynamics 5-10mmHg . Chambers/Structures Left Atrium LA Dimension: 5.12 cm LA Area: 30.09 cm^2 LA Volume: 83 ml LA Vol. Index: 36 ml/m^2 Left Ventricle LVIDd: 4.42 cm LVEDV Santamaria's:63.62 ml LVESV Santamaria's:20.34 ml LVEF Santamaria's: 68 % LVEDVI: 28 ml/m^2 LVESVI: 9 ml/m^2 LVOT Diameter: 2.13 cm Doppler/Quantitative Measurements Mitral Valve MV Peak E-Wave: 0.66 m/s MV Peak A-Wave: 0.64 m/s E/A Ratio: 1.02 Peak Gradient: 1.73 mmHg Deceleration Time: 284.4 msec MV Dmitri. Peak: Aortic Valve Peak Velocity: 1.41 m/s Mean Velocity: 1.06 m/s Peak Gradient: 7.91 mmHg Mean Gradient: 4.78 mmHg AV Area (continuity): 2.67 cm^2 AV VTI: 28.29 cm AV DVI: 0.75 LVOT Peak Velocity: 0.94 m/s Peak Gradient: 3.53 mmHg Mean Velocity: 0.63 m/s Mean Gradient: 1.89 mmHg LVOT Diameter: 2.13 cm LVOT VTI: 21.21 cm LVOT Area: 3.56 cm^2 LVOT SV:75.54 ml LVOT CO: 4.46 l/min LVOT CI: 1.96 l/min/m^2 Tricuspid Valve TR Velocity: 1.87 m/s TR Gradient: 14.02 mmHg Procedure Note Interface, External Ris In - 11/01/2020 11:43 AM [employer]PER Transthoracic Echocardiography Report (TTE) Demographics Patient Name GEN MANNING Date of Study 11/01/2020 KATHY Gend er Male Visit Number [id number] Race Room Number 1619 Number Date of 1935 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 Clinical History HGB 13.8 HCT 41.0 % A-FIB, CVA, HTN, BPH S/P TURP, RECENT DX BLADDER CA Height: 74 inches Weight: 102.06 kg (225 lbs) BSA: 2.28 m^2 BMI: 28.89 kg/m^2 HR: 59 bpm BP: 124/60 mmHg Summary TECHNICALLY DIFFICULT STUDY. The LV end ocardium is partially visualized. All Parasternal long axis measurements not possible. The left ventricle is chamber size (by PSLAX dimension) is normal (male - LVIDd 4.2-5.8cm) . All of the LV segmen ts contract normally . LVEF by Santamaria's method of disk assessment is normal (>60%) . LV diastolic function is indeterminate. The right ventricular chamber size and systolic function are within normal limits. Unable to estimate peak systolic PA pre ssure; inadequate TR velocity signal. Signature Findings Left Ventricle The LV endocardi um is partially visualized. All Parasternal long axis measurements not possible. The left ventric le is chamber size (by PSLAX dimension) is no rmal (male - LVIDd 4.2-5.8cm) . All of the LV segmen ts contract normally . LVEF by Santamaria's method of disk assessment is normal (>60%) . LV cohn tolic function is indeterminate. Left Atrium LA size is mildl y enlarged (35-41 ml/m2) . Right Ventricle The right ventri cular chamber size and systolic function are wit hin normal limits. Right Atrium RA size is mildl y dilated. Aortic Valve Mild AoV cusp th ickening. Mitral Valve Mild MV leaflet thickening. Tricuspid Valve TV structure is normal. Unable to estima te peak systolic PA pressure; inadequate TR ve locity signal. Pulmonic Valve PV is not well v isualized. Pericardium No significant p ericardial effusion is visualized. IVC/SVC/PA/PV/Pleural The estimated RA pressure by IVC dynamics 5-10mmHg . Chambers/Structures Left Atrium LA Dimension: 5.12 cm LA Area: 30.09 cm^2 LA Volume: 83 ml LA Vol. Index: 36 ml/m^2 Left Ventricle LVIDd: 4.42 cm LVEDV Santamaria's:63.62 ml LVESV Santamaria's:20.34 ml LVEF Santamaria's: 68 % LVEDVI: 28 ml/m^2 LVESVI: 9 ml/m^2 LVOT Diameter: 2.13 cm Doppler/Quantitative Measurements Mitral Valve MV Peak E-Wave: 0.66 m/s MV P eak A-Wave: 0.64 m/s E/A Ratio: 1.02 Peak Gradient: 1.73 mmHg Dece leration Time: 284.4 msec MV Dmitri. Peak: Aortic Valve Peak Velocity: 1.41 m/s Mean Velocity: 1.06 m/s Peak Gradient: 7.91 mmHg Mean Gradient: 4.78 mmHg AV Area (continuity): 2.67 cm^2 AV VTI: 28.29 cm AV DVI: 0.75 LVOT Peak Velocity: 0.94 m/s Pea k Gradient: 3.53 mmHg Mean Velocity: 0.63 m/s Fadumo n Gradient: 1.89 mmHg LVOT Diameter: 2.13 cm LVO T VTI: 21.21 cm LVOT Area: 3.56 cm^2 LVO T SV:75.54 ml LVOT CO: 4.46 l/min LVO T CI: 1.96 l/min/m^2 Tricuspid Valve TR Velocity: 1.87 m/s TR Gradient: 14.02 mmHg Performing Organization Address City/State/Zipcode Phone Number [facility] CT biopsy kidney (10/31/2020 4:30 PM [employer]ROOM HELPER) Specimen Narrative Performed At FINAL REPORT [employer] CT, BIOPSY, KIDNEY HISTORY: biopsy of L ureteral mass for m olecular testing. CONSENT: The risks, benefits, and altern atives to the procedure were discussed with the patient. The patient expressed understanding and informed written consent was obtained. TIME OUT: A pre-procedure time out was p erformed in order to confirm the appropriate site of the procedure. CONSCIOUS SEDATION: Moderate sedation wa s administered. 0.5 mg of midazolam and 25 mcg of fentanyl IV was used for moderate sedation, monitored under my direction. Total inte rservice time of sedation was 30 minutes. The patient's vital signs we re monitored throughout the procedure and recorded in the patient's medical record by the nurse. LOCAL ANESTHESIA: 10 cc 2% lidocaine TECHNIQUE: This exam was performed accor ding to our departmental dose optimization program which includes auto mated exposure control, adjustment of the mA and/or kV according to patient's size and/or use of iterative reconstructive technique. The patient's CT is reviewed, and the ab normality is localized in the distal left ureter. With the patient s upine, the area is scanned, without intravenous contrast administrat ion. After the skin over the area is marked, the skin is prepped and draped in the usual sterile manner. After local anesthesia is achiev ed, a 19 gauge needle is advanced to the abnormality under CT rocky [place]. Five 20 gauge core needle biopsies were obtained. Postprocedure CT evaluation of the area reveals trace layering blood products posterior to the ureteral mass, no loculated fluid collection. Patient disposition: Stable to post-proc edure area for recovery IMPRESSION: Successful CT-guided percutaneous core n eedle left ureteral mass core biopsy. Trace layering blood products posterior to the ureteral mass post-procedurally, no significant hemato ma. Signed: Naif Sanchez MD Report Verified Date/Time: 10/31/2020 19:04:51 Reading Location: [facility] B1 C013Y CT Body R eading Room Procedure Note Interface, External Ris In - 10/31/2020 7:06 PM STOCKROOM HELPER FINAL REPORT CT, BIOPSY, KIDNEY HISTORY: biopsy of L ureteral mass for m olecular testing. CONSENT: The risks, benefits, and altern atives to the procedure were discussed with the patient. The patient expressed understanding and informed written consent was obtained. TIME OUT: A pre-procedure time out was p erformed in order to confirm the appropriate site of the procedure. CONSCIOUS SEDATION: Moderate sedation wa s administered. 0.5 mg of midazolam and 25 mcg of fentanyl IV was used for moderate sedation, monitored under my direction. Total inte rservice time of sedation was 30 minutes. The patient's vital signs we re monitored throughout the procedure and recorded in the patient's medical record by the nurse. LOCAL ANESTHESIA: 10 cc 2% lidocaine TECHNIQUE: This exam was performed accor ding to our departmental dose optimization program which includes auto mated exposure control, adjustment of the mA and/or kV according to patient's size and/or use of iterative reconstructive technique. The patient's CT is reviewed, and the ab normality is localized in the distal left ureter. With the patient soto pine, the area is scanned, without intravenous contrast administrat ion. After the skin over the area is marked, the skin is prepped and draped in the usual sterile manner. After local anesthesia is achiev ed, a 19 gauge needle is advanced to the abnormality under CT rocky dance. Five 20 gauge core needle biopsies were obtained. Postprocedure CT evaluation of the area reveals trace layering blood products posterior to the ureteral mass, no loculated fluid collection. Patient disposition: Stable to post-proc edure area for recovery IMPRESSION: Successful CT-guided percutaneous core n eedle left ureteral mass core biopsy. Trace layering blood products posterior to the ureteral mass post-procedurally, no significant hemato ma. Signed: Naif Sanchez MD Report Verified Date/Time: 10/31/2020 1 9:04:51 Reading Location: [facility] B1 C013Y CT Body R eading Room Performing Organization Address City/State/Zipcode Phone Number GE [facility]IS Tissue Exam (10/31/2020 4:29 PM STOCKROOM HELPER) Pathologist Sig nature Case Report Surgical Pathology Report Case: [id number] [facility] Authorizing Provider: Vinh Maza Collected: 10/31/2020 04:29 PM [facility] MD [facility] Ordering Location: [address] Received: 11/01/2020 08:40 AM Service Pathologist: Sang Willingham MD Specimen: Ureter, Left, left ureteral mass biopsy for molecular testing DIAGNOSIS URETER, LEFT, BIOPSY OF MASS: [facility] Electronically signed - PAPILLARY UROTHELIAL CARCINOMA, HIGH GRADE (WHO GRADE 3), [facility] by Sang Willingham FOCALLY INVASIVE INTO MUSCULARIS PROPRIA [facility] MD [place] on - NEGATIVE FOR LYMPH/VASCULAR INVASION 11/01/2020 at 5:16 PM Signing Pathologist Direct Phone Line: CPT Code(s) 81980 [facility] CLINICAL HISTORY left ureteral mass [facility] biopsy for [facility] molecular testing [facility]ENTER SPECIMEN SOURCE Ureter, left [facility] GROSS DESCRIPTION Received in formalin labeled the patient's name, accession number and "left ureter" are multiple brito, threadlike soft tissue fragments measuring up to 0.5 cm in greatest length by 0.1 cm in diameter which are filtered and submitted in toto in A1. [facility] KAMRYN Edwards, HT (ASCP) MEDICAL CE NTER MICROSCOPIC Performed. [facility] Specimen Tissue - Structure of left ureter (body structure) Performing Organization Address City/State/Zipcode Phone Number [facility] MEDICAL [address] [place] [address] chest with IV contrast (10/31/2020 3:51 PM STOCKROOM HELPER) Specimen Narrative Performed At FINAL REPORT GE RIS TECHNIQUE: CT of the chest WITH intraven ous contrast. Dose modulation, iterative reconstruction, an d/or weight-based adjustment of the mA/kV was utilized to reduce the radiation dose to as low as reasonably achievable. INDICATION: 84-year-old man with urothel ial cancer. COMPARISON: None. FINDINGS: LINES/TUBES: None. LUNGS AND AIRWAYS: Central airways are p atent. 3 mm noncalcified nodule in the right lower lobe (axial denny ng window series images 36). 5 mm groundglass nodule in the right low er lobe (axial lung window series image 39). 3-4 mm noncalcified no dules in the left lower lobe (axial lung window series images 31, 39, and 50). Subcentimeter calcified granuloma in the right middle lobe along the right minor fissure. Mild subpleural reticulonodular opacities scattered in both lungs. Linear subsegmental atelectasis i n both lung bases. PLEURA: Pleural spaces are clear. HEART AND MEDIASTINUM: Visualized thyroi d gland is normal. Mildly prominent 1.1 cm right lower paratrachea l lymph node. Heart and pericardium are within normal limits. At herosclerotic coronary artery calcifications. BONES AND SOFT TISSUES: Degenerative susie nges of the visualized spine. Soft tissues are unremarkable. UPPER ABDOMEN: Unchanged scattered hepat ic cysts measure up to 1.7 x 2 cm. Unchanged debris-containing right renal cyst measures 2.4 x 2.7 cm. Unchanged simple right renal cyst me asures 1.6 x 2 cm. Unchanged simple left renal cyst measures 2.2 x 2. 6 cm. Partially visualized left nephroureteral stent. IMPRESSION: No definite thoracic metastases. Indeterminate findings include: *Few 3-5 mm pulmonary nodules *Mildly prominent right mediastinal lymp h node Signed: Makenzie Gonzalez MD Report Verified Date/Time: 10/31/2020 22:14:06 Reading Location: [facility] [address] [place] [address] Procedure Note Interface, External Ris In - 10/31/2020 10:16 PM STOCKROOM HELPER FINAL REPORT TECHNIQUE: CT of the chest WITH intraven ous contrast. Dose modulation, iterative reconstruction, an d/or weight-based adjustment of the mA/kV was utilized to reduce the radiation dose to as low as reasonably achievable. INDICATION: 84-year-old man with urothel ial cancer. COMPARISON: None. FINDINGS: LINES/TUBES: None. LUNGS AND AIRWAYS: Central airways are p atent. 3 mm noncalcified nodule in the right lower lobe (axial denny ng window series images 36). 5 mm groundglass nodule in the right low er lobe (axial lung window series image 39). 3-4 mm noncalcified no dules in the left lower lobe (axial lung window series images 31, 39, and 50). Subcentimeter calcified granuloma in the right middle lobe along the right minor fissure. Mild subpleural reticulonodular opacities scattered in both lungs. Linear subsegmental atelectasis i n both lung bases. PLEURA: Pleural spaces are clear. HEART AND MEDIASTINUM: Visualized thyroi d gland is normal. Mildly prominent 1.1 cm right lower paratrachea l lymph node. Heart and pericardium are within normal limits. At herosclerotic coronary artery calcifications. BONES AND SOFT TISSUES: Degenerative susie nges of the visualized spine. Soft tissues are unremarkable. UPPER ABDOMEN: Unchanged scattered hepat ic cysts measure up to 1.7 x 2 cm. Unchanged debris-containing right renal cyst measures 2.4 x 2.7 cm. Unchanged simple right renal cyst me asures 1.6 x 2 cm. Unchanged simple left renal cyst measures 2.2 x 2. 6 cm. Partially visualized left nephroureteral stent. IMPRESSION: No definite thoracic metastases. Indeterminate findings include: *Few 3-5 mm pulmonary nodules *Mildly prominent right mediastinal lymp h node Signed: Makenzie Gonzalez MD Report Verified Date/Time: 10/31/2020 2 2:14:06 Reading Location: [facility] Consult R ding Room Performing Organization Address City/State/Zipcode Phone Number GE RIS CBC (Hemogram only) (10/31/2020 3:47 AM STOCKROOM HELPER)Only the most recent of5 results within the time period is included. Pathologist Sig nature WBC 7.6 3.5 - 10.5 K/L [facility] RBC 4.57 (L) 4.63 - 6.08 M/L [facility] Hemoglobin 13.8 13.7 - 17.5 GM/DL [facility] Hematocrit 41.0 40.1 - 51.0 % [facility] MCV 89.7 79.0 - 92.2 fL [facility] MCH 30.2 25.7 - 32.2 pg [facility] MCHC 33.7 32.3 - 36.5 GM/DL [facility] RDW 13.8 11.6 - 14.4 % [facility] Platelets 97 (L) 150 - 450 K/CU MM [facility] MPV 11.9 9.4 - 12.4 fL [facility] nRBC 0 0 - 0 /100 WBC [facility] Specimen Blood Performing Organization Address [facility] Phone Number [address] [address] CENTER Phosphorus (10/31/2020 3:47 AM STOCKROOM HELPER)Only the most recent of6 resultswithin the time period is included. Pathologist Sig nature Phosphorus 2.4 2.3 - 4.7 mg/dL [facility] Specimen Blood Narrative Performed At Property Assessment Monitor [facility] - [facility] Performing Organization Address City/[facility] Phone Number [facility] [address] [place] [address] CENTER Magnesium (10/31/2020 3:47 AM STOCKROOM HELPER)Only the most recent of6 resultswithin the time period is included. Pathologist Sig nature Magnesium 2.0 1.6 - 2.6 mg/dL [facility] Specimen Blood Narrative Performed At Property Assessment Monitor [facility] Performing Organization Address City/State/Zipcode Phone Number [facility] [address] [place] [address] CENTER Basic Metabolic Panel (10/31/2020 3:47 AM STOCKROOM HELPER)Only the most recent of5 results within the time period is included. Sodium 139 136 - 145 meq/L [facility] Potassium 3.9 3.5 - 5.1 meq/L [facility] Chloride 108 (H) 98 - 107 meq/L [facility] CO2 21 (L) 22 - 29 meq/L [facility] BUN 25 (H) 7 - 21 mg/dL [facility] Creatinine 1.36 (H) 0.57 - 1.25 [facility] mg/dL [facility] Glucose 83 70 - 105 mg/dL [facility] Calcium 8.6 8.4 - 10.2 [facility] mg/dL [facility] EGFR 50Comment: ESTIMATED mL/min/1.73 sq [facility] GFR IS NOT m [facility] ACCURATE [place] CREATININE CLEARANCE IN PREDICTING GLOMERULAR FILTRATION RATE. ESTIMATED GFR IS NOT APPLICABLE FOR DIALYSIS PATIENTS. Specimen Blood Narrative Performed At Property Assessment Monitor MAL [facility] Performing Organization Address City/[facility]/Zipcode Phone Number [facility] [address] [place] [address] CENTER PT/aPTT (10/30/2020 3:44 AM STOCKROOM HELPER) Pathologist Sig nature Protime 14.5 (H) 11.9 - 14.2 seconds [facility] INR 1.17 <=5.90 [facility] PTT 33.7 22.5 - 36.0 seconds [facility] Specimen Blood Narrative Performed At Effective 04/27/2019: PT Reference Range [facility] Change New: 11.9-14.2 Previous: 11.7-14.7 RECOMMENDED COUMADIN/WARFARIN INR THERAPY RANGES STANDARD DOSE: 2.0-3.0 Includes: PROPHYLAXIS for venous thrombosis, systemic embolization; TREATMENT for venous thrombosis and/or pulmonary embolus. HIGH RISK: Target INR is 2.5-3.5 for patients wiht mechanical heart valves. Performing Organization Address [facility] Phone Number [address] [address] [place] Peripheral Blood Smear - Hold only (10/30/2020 3:44 AM STOCKROOM HELPER) Pathologist Sig [facility] Peripheral Smear Save 2 smear saved [facility] Specimen Blood Performing Organization Address [facility] Phone Number [address] [address] [place] Fibrinogen (10/30/2020 3:44 AM STOCKROOM HELPER) Pathologist [facility] Fibrinogen 435 (H) 225 - 434 mg/dl [facility] Specimen Blood Performing Organization Address [facility] Phone Number [address] [address] [place] D-dimer (10/30/2020 3:44 AM STOCKROOM HELPER) Pathologist [facility] D-Dimer, Quant 1.73 (H) <0.50 MG/L FEU [facility] Specimen Blood Narrative Performed At Intended Use: The D-Dimer Assay can be used [facility] to aid in the diagnosis of Deep Vein Thrombosis (DVT) and Pulmonary Embolism Disease (PED). In patients with low pre-test probability, various studies concerning STA Liatest D-dimer test have reported that with a cutoff value of 0.50 MG/L FEU, the Negative Predictive Value (NPV) regarding the exclusion of thrombosis is within 95-100% range. Performing Organization Address [facility] Phone Number [address] [address] [place] Vitamin B12 (10/30/2020 3:44 AM STOCKROOM HELPER) Pathologist [facility] Vitamin B12 279 213 - 816 pg/mL [facility] Specimen Blood Narrative Performed At Property Assessment Monitor ID - EDASI [facility] Performing Organization Address City/State/Zipcode Phone Number [facility] [address] [place] [address] CENTER Cytology (10/29/2020 10:10 AM STOCKROOM HELPER)Only the most recent of2 resultswithin the time period is included. Pathologist Sig nature Case Report Medical Cytology Report Case: [id number] [facility] Authorizing Provider: Asuncion Becker MD Collected: 10/29/2020 10:10 AM [facility] Ordering Location: [address] Received: 10/29/2020 12:05 PM MEDICAL CENTER Service Pathologist: Suman Taylor MD Specimen: Nephrostomy, Left DIAGNOSIS NEPHROSTOMY, LEFT, URINE FLUID (CYTOSPINS): [facility] Electronically signed - NECROSIS WITH CELLULAR DEGENERATION, FEW ATYPICAL CELLS, SUSPICIOUS FOR HIGH GRADE UROTHELIAL CARCINOMA [facility] by Meaghan Shaying Pathologist Direct Phone Line: [phone] [place] [address] MD Suman on 10/29/2020 at 2:22 PM CPT Code(s) 22478 [facility] CLINICAL DATA Gross hematuria; L [facility] hydronephrosis, [facility] hydroureter; [facility] ureteral mass; Urinary retention; CT abd/pelvis with/without contrast showed [id number] enhancing mass in the mid left ureter, enlarged left common iliac chain lymph node, irregular bladder wall, small sclerotic focus in the right posterior iliac bone SPECIMEN SOURCE NEPHROSTOMY, LEFT, [facility] URINE FLUID [facility] GROSS DESCRIPTION Received 20 ml [facility] bloody fluid; [facility] prepared 4 [facility] cytospins MICROSCOPIC Performed. [facility] DESCRIPTION [facility] STATEMENT OF Satisfactory [facility] ADEQUACY [facility] was performed at Medical Center, [facility] Department of MEDICAL CENTER Pathology, [address] [place] [address], Technical component [facility] was performed at [facility] Department of [facility] CENTER Pathology, [address] [place] [id number], Professional [facility] component was [facility] performed at Department [facility] Pathology, [address] [place] [phone], Specimen Urine - Nephrostomy, Left Performing Organization Address City/State/Zipcode Phone Number [facility] [address] [place] [address] CENTER IR Percutaneous Nephrostomy - Ext. Drain Placement (10/29/2020 9:44 AM STOCKROOM HELPER) Specimen Narrative Performed At FINAL REPORT [employer] Nephroureterostomy catheter placement, l eft, 10/29/2020. Clinical History: Left ureteral mass and hydronephrosis. Modality: Fluoroscopy and sonography. Radio Rigger: Chary. Customer Complaint Service Supervisor: Nikolas Doshi. Sedation: Versed 1 mg and fentanyl 50 mc g was given intravenously for moderate sedation. The patient's vital s igns were monitored throughout the procedure and recorded to the patient's medical record by the nurse. Total intra-service time of sedation was 40 minutes. Estimated Blood Loss: Less than 5 cc. Specimen: None. Fluoro Time: 5.3 min. Dose (Ka,r): 166 mGy. Technique: Informed written consent was obtained. Discussion of risks, benefits, and alternatives were m marcela with the patient. The patient expressed understanding and agre ed to proceed. All elements maximal sterile barrier technique was ut ilized for this procedure, including utilization of sterile scrub s olution for skin prep, a large sterile sheet to cover the areas o f the patient that were not prepped, and hand hygiene, mask, head co vering, and sterile gown for performing radiologist and scrub technol ogist. Local anesthesia was achieved with 1% li docaine, the left lower pole calyx was visualized with ultrasound. Us ing ultrasound guidance, a 21-gauge Chiba needle was advanced into the calyx. Contrast injection confirmed placement within the calyx. A 0.018 inch wire was advanced through the needle a curled wit hin the pelvis. The Accustick sheath was advanced over the wire into t he renal pelvis. A 4 Finnish Berenstein catheter and Glidewire were a dvanced down the ureter past the left ureteral mass and into the blad sonu. The Glidewire was exchanged for an Amplatz wire which was positioned within the bladder. After a small skin incision was made, the soft tissue tract was dilated an 8 Finnish dilator. An 8 Fr ench x 26 cm nephroureterostomy catheter was advanced over the wire until the catheter tip was within the bladder. The wire was then removed, and the pigtail of the catheter was locked. The catheter was then secured onto the skin with 2-0 silk. The patient tolerated the procedure well, without immediate compli cations. The patient's vital signs remained stable throughout the pro cedure. Patient disposition: The patient was dis charged from the department in stable condition. Findings: There is severe left hydroneph rosis and hydroureter down to the mid left ureter where a rounded fill ing defect is identified consistent with the history of ureteral mass. Impression: Successful and uncomplicated left nephro ureterostomy catheter placement with conscious sedation. Signed: Silverio Diez MD Report Verified Date/Time: 10/29/2020 13:04:36 Reading Location: [place] [address] Angio Body Reading Room Procedure Note Interface, External Ris In - 10/29/2020 1:06 PM STOCKROOM HELPER FINAL REPORT Nephroureterostomy catheter placement, l eft, 10/29/2020. Clinical History: Left ureteral mass and hydronephrosis. Modality: Fluoroscopy and sonography. Radio Rigger: Chary. Customer Complaint Service Supervisor: Nikolas Doshi. Sedation: Versed 1 mg and fentanyl 50 mc g was given intravenously for moderate sedation. The patient's vital s igns were monitored throughout the procedure and recorded to the patient's medical record by the nurse. Total intra-service time o f sedation was 40 minutes. Estimated Blood Loss: Less than 5 cc. Specimen: None. Fluoro Time: 5.3 min. Dose (Ka,r): 166 mGy. Technique: Informed written consent was obtained. Discussion of risks, benefits, and alternatives were m marcela with the patient. The patient expressed understanding and agre ed to proceed. All elements maximal sterile barrier technique was ut ilized for this procedure, including utilization of sterile scrub s olution for skin prep, a large sterile sheet to cover the areas o f the patient that were not prepped, and hand hygiene, mask, head co vering, and sterile gown for performing radiologist and scrub technol ogist. Local anesthesia was achieved with 1% li docaine, the left lower pole calyx was visualized with ultrasound. Us ing ultrasound guidance, a 21-gauge Chiba needle was advanced into the calyx. Contrast injection confirmed placement within the calyx. A 0.018 inch wire was advanced through the needle a curled wit hin the pelvis. The Accustick sheath was advanced over the wire into t he renal pelvis. A 4 Finnish Berenstein catheter and Glidewire were a dvanced down the ureter past the left ureteral mass and into the blad sonu. The Glidewire was exchanged for an Amplatz wire which was positioned within the bladder. After a small skin incision was made, the soft tissue tract was dilated an 8 Finnish dilator. An 8 Fr ench x 26 cm nephroureterostomy catheter was advanced over the wire until the catheter tip was within the bladder. The wire was then removed, and the pigtail of the catheter was locked. The catheter was then secured onto the skin with 2-0 silk. The patient tolerated the procedure well, without immediate compli cations. The patient's vital signs remained stable throughout the pro cedure. Patient disposition: The patient was dis charged from the department in stable condition. Findings: There is severe left hydroneph rosis and hydroureter down to the mid left ureter where a rounded fill ing defect is identified consistent with the history of ureteral mass. Impression: Successful and uncomplicated left nephro ureterostomy catheter placement with conscious sedation. Signed: Silverio Diez MD Report Verified Date/Time: 10/29/2020 1 3:04:36 Reading Location: [place] [address] Angio Body Reading Room Performing Organization Address City/State/Zipcode Phone Number GE RIS Prothrombin time/INR (10/29/2020 3:29 AM STOCKROOM HELPER)Only the most recent of2 results within the time period is included. Pathologist [facility] Protime 15.6 (H) 11.9 - 14.2 seconds [facility] INR 1.28 <=5.90 [facility] Specimen Blood Narrative Performed At Effective 04/27/2019: PT Reference Range [facility] Change New: 11.9-14.2 Previous: 11.7-14.7 RECOMMENDED COUMADIN/WARFARIN INR THERAPY RANGES STANDARD DOSE: 2.0-3.0 Includes: PROPHYLAXIS for venous thrombosis, systemic embolization; TREATMENT for venous thrombosis and/or pulmonary embolus. HIGH RISK: Target INR is 2.5-3.5 for patients wiht mechanical heart valves. Performing Organization Address City/[facility]/Zipcode Phone Number [address] [address] CENTER Platelet count (10/28/2020 1:19 PM STOCKROOM HELPER) Pathologist Sig nature Platelets 93 (L)Comment: plt 150 - 450 K/CU [facility] count performed on [facility] top. [place] Specimen Blood Narrative Performed At Property Assessment Monitor ID - [id number] [facility] Property Assessment Monitor ID - [id number] Performing Organization Address City/[facility]/Zipcode Phone Number [address] [address] CENTER Haptoglobin (10/27/2020 12:56 PM STOCKROOM HELPER) Pathologist Sig nature Haptoglobin 48 14 - 258 mg/dL [facility] Specimen Blood Narrative Performed At Property Assessment Monitor ID - REMBERTO M [facility] Performing Organization Address City/State/Zipcode Phone Number [address] [address] CENTER Lactate dehydrogenase (LDH) (10/27/2020 12:52 PM STOCKROOM HELPER) Pathologist Sig nature LDH 299 (H) 125 - 220 U/L [facility] Specimen Blood Narrative Performed At Property Assessment Monitor ID - REMBERTO M [facility] Performing Organization Address City/[facility]/Zipcode Phone Number [facility] [address] [place] [address] [place] Hepatic function panel (10/27/2020 12:52 PM STOCKROOM HELPER) Pathologist Sig nature Protein, Total 6.2 6.0 - 8.3 gm/dL [facility] Albumin 3.4 (L) 3.5 - 5.0 g/dL [facility] Total Bilirubin 0.7 0.2 - 1.2 mg/dL [facility] Bilirubin, Direct 0.4 0.1 - 0.5 mg/dL [facility] Alkaline Phosphatase 45 40 - 150 U/L [facility] AST 20 5 - 34 U/L [facility] ALT 9 6 - 55 U/L [facility] Specimen Blood Narrative Performed At Property Assessment Monitor MAL - REMBERTO Dawson [facility] Performing Organization Address City/State/Zipcode Phone Number [facility] [address] [place] [address] [place] US renal complete (10/27/2020 10:15 AM STOCKROOM HELPER) Specimen Narrative Performed At FINAL REPORT [facility] U/S, RENAL, COMPLETE CLINICAL HISTORY: Eval for hydro; has he maturia COMPARISON: Same day CT abdomen and pelv is TECHNIQUE: Real time grayscale and color Doppler imaging of the kidneys and urinary bladder was performe d. FINDINGS: Right kidney: Length = 11.4 cm Cortical thickness: Normal Echogenicity: Normal Collecting system: No hydronephrosis Other findings: 2 simple appearing cysts measuring up to 2.6 cm Left kidney: Length = 12.7 cm Cortical thickness: Mild thinning Echogenicity: Normal Collecting system: Severe hydronephrosis Other findings: Simple appearing cyst me asuring 2.9 cm Urinary bladder: Decompressed with a Fol ey catheter IMPRESSION: Severe left hydronephrosis. Bilateral simple renal cysts. Signed: Naif Sanchez MD Report Verified Date/Time: 10/27/2020 10:56:29 Reading Location: [facility] C013Y CT Body R eading Room Procedure Note Interface, External Ris In - 10/27/2020 10:58 AM STOCKROOM HELPER FINAL REPORT U/S, RENAL, COMPLETE CLINICAL HISTORY: Eval for hydro; has he maturia COMPARISON: Same day CT abdomen and pelv is TECHNIQUE: Real time grayscale and color Doppler imaging of the kidneys and urinary bladder was performe d. FINDINGS: Right kidney: Length = 11.4 cm Cortical thickness: Normal Echogenicity: Normal Collecting system: No hydronephrosis Other findings: 2 simple appearing cysts measuring up to 2.6 cm Left kidney: Length = 12.7 cm Cortical thickness: Mild thinning Echogenicity: Normal Collecting system: Severe hydronephrosis Other findings: Simple appearing cyst me asuring 2.9 cm Urinary bladder: Decompressed with a Fol ey catheter IMPRESSION: Severe left hydronephrosis. Bilateral simple renal cysts. Signed: Naif Sanchez MD Report Verified Date/Time: 10/27/2020 1 0:56:29 Reading Location: [facility] C013Y CT Body R eading Room Performing Organization Address City/State/Zipcode Phone Number [employer] CT abdomen/pelvis without & with IV contrast (10/27/2020 9:05 AM STOCKROOM HELPER) Specimen Narrative Performed At FINAL REPORT [employer] CT, ABDOMEN \\T\\ PELVIS, WITHOUT \\T\\ WITH IV CONTRAST CLINICAL HISTORY: Hematuria, unknown cau se COMPARISON: None TECHNIQUE: CT abdomen and pelvis without and with IV contrast, urogram protocol. The examination was pe rformed according to departmental dose-optimization program [facility] includes automated exposure control, adjustment of the mA a nd/or kV according to patient size and/or use of iterative reconstruct ion technique. FINDINGS: Genitourinary Findings: Right kidney and ureter Calculi and collecting system: None. No hydronephrosis. Renal lesion: A nonenhancing hemorrhagic /proteinaceous 27 mm hyperdense cyst in the anterior interpol ar region on the right and an additional simple 20 mm cyst in the inte rpolar region. Urothelial lesion: None. Left kidney and ureter Calculi and collecting system: Severe ri ght hydroureteronephrosis with a delayed nephrogram and no apparen t excretion on delayed phase Renal lesion: A 24 mm simple renal cyst in the interpolar region and additional punctate nonenhancing foci of the upper pole, likely additional renal cysts but too small to characterize. Urothelial lesion: An enhancing mass in the mid ureter measuring 34 x 16 mm (coronal image 59). The distal ure ter is decompressed. Urinary bladder: Urinary bladder is deco mpressed with a Woody catheter and poorly evaluated. The urina ry bladder wall is somewhat irregular appearing, there is perivascul ar fat stranding. Intraluminal bladder gas is likely relat ed to instrumentation. Additional Findings: Lung bases: Minimal subpleural scarring. Liver: Numerous hypoattenuating lesions in the liver, largest lesions are cysts, up to 22 mm, smaller lesions are too small to characterize but likely representing additional cysts . Gallbladder and bile ducts: Unremarkable . Spleen: A subcentimeter hypoattenuating focus in the central spleen, too small to characterize but almost cer tainly benign. Mild splenomegaly, 15 cm in long axis. Pancreas: Mildly atrophic. A punctate ca lcification suggests chronic pancreatitis. Adrenals: Unremarkable Bowel: Moderate amount of stool througho ut the colon. Normal appendix. No evidence for bowel obstru ction. Reproductive organs: Unremarkable. Lymph nodes: A 14 x 17 mm left common il iac chain lymph node suspicious for lorie disease. Peritoneum: Unremarkable. Vessels: Moderate atherosclerotic calcif ications. Contrast reflux into the hepatic veins on the arterial p hase suggesting elevated right heart pressures. Abdominal wall: Small fat-containing lef t inguinal hernia. Postsurgical changes in the right groin Bones: Multilevel degenerative changes o f the lumbar spine. A small nonspecific sclerotic focus in the right posterior iliac bone. 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 2.An enlarged left common iliac chain ly mph node compatible with lorie disease. 3.No nephroureterolithiasis. 4.The urinary bladder wall is irregular but decompressed and poorly evaluated, with perivesical fat strandin g. Correlate with urinalysis and cystoscopy. 5.A small nonspecific sclerotic focus in the right posterior iliac bone. Low suspicion for metastatic disea se, correlate with any outside priors and attention on follow-u p Signed: Naif Sanchez MD Report Verified Date/Time: 10/27/2020 10:26:29 Reading Location: [facility] B1 C013Y CT Body R eading Room Procedure Note Interface, External Ris In - 10/27/2020 12:10 PM STOCKROOM HELPER FINAL REPORT CT, ABDOMEN \\T\\ PELVIS, WITHOUT \\T\\ WITH IV CONTRAST CLINICAL HISTORY: Hematuria, unknown cau se COMPARISON: None TECHNIQUE: CT abdomen and pelvis without and with IV contrast, urogram protocol. The examination was pe rformed according to departmental dose-optimization program w hich includes automated exposure control, adjustment of the mA a nd/or kV according to patient size and/or use of iterative reconstruct ion technique. FINDINGS: Genitourinary Findings: Right kidney and ureter Calculi and collecting system: None. No hydronephrosis. Renal lesion: A nonenhancing hemorrhagic /proteinaceous 27 mm hyperdense cyst in the anterior interpol ar region on the right and an additional simple 20 mm cyst in the inte rpolar region. Urothelial lesion: None. Left kidney and ureter Calculi and collecting system: Severe ri ght hydroureteronephrosis with a delayed nephrogram and no apparen t excretion on delayed phase Renal lesion: A 24 mm simple renal cyst in the interpolar region and additional punctate nonenhancing foci of the upper pole, likely additional renal cysts but too small to characterize. Urothelial lesion: An enhancing mass in the mid ureter measuring 34 x 16 mm (coronal image 59). The distal ure ter is decompressed. Urinary bladder: Urinary bladder is deco mpressed with a Woody catheter and poorly evaluated. The urina ry bladder wall is somewhat irregular appearing, there is perivascul ar fat stranding. Intraluminal bladder gas is likely relat ed to instrumentation. Additional Findings: Lung bases: Minimal subpleural scarring. Liver: Numerous hypoattenuating lesions in the liver, largest lesions are cysts, up to 22 mm, smaller lesions are too small to characterize but likely representing additional cysts . Gallbladder and bile ducts: Unremarkable . Spleen: A subcentimeter hypoattenuating focus in the central spleen, too small to characterize but almost cer tainly benign. Mild splenomegaly, 15 cm in long axis. Pancreas: Mildly atrophic. A punctate ca lcification suggests chronic pancreatitis. Adrenals: Unremarkable Bowel: Moderate amount of stool througho ut the colon. Normal appendix. No evidence for bowel obstruc tion. Reproductive organs: Unremarkable. Lymph nodes: A 14 x 17 mm left common il iac chain lymph node suspicious for lorie disease. Peritoneum: Unremarkable. Vessels: Moderate atherosclerotic calcif ications. Contrast reflux into the hepatic veins on the arterial p hase suggesting elevated right heart pressures. Abdominal wall: Small fat-containing lef t inguinal hernia. Postsurgical changes in the right groin Bones: Multilevel degenerative changes o f the lumbar spine. A small nonspecific sclerotic focus in the right posterior iliac bone. 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 2.An enlarged left common iliac chain ly mph node compatible with lorie disease. 3.No nephroureterolithiasis. 4.The urinary bladder wall is irregular but decompressed and poorly evaluated, with perivesical fat strandin g. Correlate with urinalysis and cystoscopy. 5.A small nonspecific sclerotic focus in the right posterior iliac bone. Low suspicion for metastatic disea se, correlate with any outside priors and attention on follow-u p Signed: Naif Sanchez MD Report Verified Date/Time: 10/27/2020 1 0:26:29 Reading Location: [facility] B1 C013Y CT Body R eading Room Performing Organization Address City/State/Zipcode Phone Number GE RIS Manual Differential (10/27/2020 3:42 AM STOCKROOM HELPER) Pathologist Sig nature % Neutros (manual) 72 % [facility] % Lymphs (manual) 17 % [facility] % Monos (manual) 9 % [facility] % Eos (manual) 2 % [facility] # Neutros (manual) 4.75 1.80 - 8.00 [facility] K/L [facility] # Lymphs (manual) 1.12 (L) 1.48 - 4.50 [facility] # Monos (manual) 0.59 0.00 - 1.30 [facility] # Eos (manual) 0.13 0.00 - 0.50 [facility] Total Counted 100 [facility] WBC Morphology Normal [facility] Platelet Morphology Normal [facility] RBC Morphology Normal [facility] Specimen Blood Performing Organization Address [facility] Centercode Phone Number [address] [address] [place] Peripheral Blood Smear - Path Review (10/27/2020 3:42 AM STOCKROOM HELPER) Pathologist Review Cell counts [facility] Pathologist: Марина Trevino [facility] Yaquelin (electronic [facility] signature) CENTER Specimen Blood Performing Organization Address City/[facility] Centercode Phone Number [address] [address] [place] aPTT (10/27/2020 3:42 AM STOCKROOM HELPER) Pathologist Sig nature PTT 37.2 (H) 22.5 - 36.0 seconds [facility] Specimen Blood Performing Organization Address [facility] Centercode Phone Number [address] [address] [place] Reticulocyte count (10/27/2020 3:42 AM STOCKROOM HELPER) Pathologist Sig nature % Retic 1.3 0.5 - 1.8 % [facility] Specimen Blood Narrative Performed At Property Assessment Monitor ID - [id number] [facility] Performing Organization Address [facility]/Zipcode Phone Number [address] [address] [place] SARS-CoV2/RT-PCR (Asymptomatic ONLY) (10/26/2020 8:08 PM STOCKROOM HELPER) SARS-COV2/RT-PCR Negative Not Detected, [facility] Negative, See [facility] external report CENTER for linked test SARS-COV-2 [facility] PER[facility] Specimen Other - Nasopharyngeal wall structure (b len structure) Narrative Performed At Negative result for this test determines that [facility] SARS-CoV-2 RNA was not present in the specimen above the Limit of Detection (LOD). However, Negative results do not preclude SARS-CoV-2 infection and should not be used as the sole basis for treatment or patient management decisions. Negative results must be combined with clinical observations, patient history, and epidemiological information. A false negative result may occur if a specimen is improperly collected, transported or handled. A false negative result should be considered if patient's recent exposures or clinical presentation indicate that COVID-19 (SARS-CoV-2) is likely and diagnostic tests for other causes of illness are negative. Re-testing should be considered in cases of suspected false negatives. The limit of detection for this assay is 800 copies/mL. This SARS CoV-2 test is a real-time RT-PCR test intended for the qualitative detection of nucleic acid from SARS-CoV-2 in a nasopharyngeal swab specimen collected from individuals suspected of COVID-19 by their healthcare provider. This test has not been Food and Drug Administration (FDA) cleared or approved. This is a modified version of an approved Emergency Use Authorization (EUA) and is in the process of review by the FDA. Once authorized by the FDA, the issued EUA will be effective until the declaration that circumstances exist justifying the authorization of the emergency use of in vitro diagnostic tests for detection and/or diagnosis of COVID-19 is terminated under Section 564(b)(2) of the Act or the EUA is revoked under Section 564(g) of the Act. Fact Sheet for Healthcare Providers: https://www.SportsBeep/sites/default/files/pro duct/documents/Fact_Sheet_HC_Providers_Juan_ RS-CoV-2.pdf Fact Sheet for Healthcare Patients: https://www.Pixelated.[facility]/sites/default/files/pro duct/documents/Fact_Sheet_Patients_Lyra_SARS-C oV-2.pdf Performing Laboratory: [facility] [address] [place] [id number] Performing Organization Address [facility]/Zipcode Phone Number [address] [address] [facility], manual (10/26/2020 8:07 PM STOCKROOM HELPER) Pathologist Sig nature ABO Grouping A [facility] DICAL [place] Rh Factor POS [facility] Specimen Blood Performing Organization Address [facility]/Zipcode Phone Number [address] [address] Urinalysis w/Microscopic + Reflex to Culture (10/26/2020 6:46 PM STOCKROOM HELPER) Color, UA [place] [facility] Clarity, UA Hazy [facility] Specific [place], 1.015 1.001 - 1.035 [facility] pH, UA 6.0 5.0 - 8.0 [facility] Protein, UA 30 mg/dL (A) Negative [facility] Glucose, UA Negative Negative [facility] Ketones, UA Negative Negative [facility] Bilirubin, UA Negative Negative [facility] Blood, UA Large (A) Negative [facility] Nitrite, UA Negative Negative [facility] Leukocytes, UA Small (A) Negative [facility] Urobilinogen, UA 0.2 0.2 - 1.0 mg/dL [facility] RBC, UA 1,221 /HPF [facility] WBC, UA 124 /HPF [facility] Bacteria, UA Many [facility] Mucus Rare [facility] Crystals, Urine Many [facility] Specimen Source [facility] Specimen Urine Narrative Performed At Property Assessment Monitor ID - [auto] [facility] Property Assessment Monitor ID - tech Performing Organization Address City/State/Zipcode Phone Number [facility] [address] [place] [address] CENTER Urine culture (10/26/2020 6:46 PM STOCKROOM HELPER) Pathologist Sig nature Result >100,000 col/mL [facility] Escherichia coli (A) [facility] Result 50-59,000 col/mL [facility] Escherichia coli [facility] (A)Comment: of a second type Specimen Urine Narrative Performed At <10,000 col/mL skin saqib [facility] Organism Antibiotic Method Susceptibility Escherichia coli Amikacin <=2: Susceptibl e Escherichia coli Ampicillin + Sulbactam <=2: Nirmala ceptible Escherichia coli Aztreonam <=1: Susceptibl e Escherichia coli Cefepime <=1: Susceptibl e Escherichia coli Cefoxitin <=4: Susceptibl e Escherichia coli Ceftazidime <=1: Susceptibl e Escherichia coli Ceftriaxone <=1: Susceptibl e Escherichia coli Ertapenem <=0.5: Suscepti ble Escherichia coli Gentamicin <=1: Susceptibl e Escherichia coli Levofloxacin >=8: Resistant Escherichia coli Meropenem <=0.25: Suscept ible Escherichia coli Nitrofurantoin <=16: Susceptib le Escherichia coli Tetracycline <=1: Susceptibl e Escherichia coli Tobramycin <=1: Susceptibl e Escherichia coli Trimethoprim + Sulfamethoxazole <=20: Susceptible Escherichia coli Amikacin <=2: Susceptibl e Escherichia coli Ampicillin + Sulbactam <=2: Nirmala ceptible Escherichia coli Aztreonam <=1: Susceptibl e Escherichia coli Cefepime <=1: Susceptibl e Escherichia coli Cefoxitin <=4: Susceptibl e Escherichia coli Ceftazidime <=1: Susceptibl e Escherichia coli Ceftriaxone <=1: Susceptibl e Escherichia coli Ertapenem <=0.5: Suscepti ble Escherichia coli Gentamicin <=1: Susceptibl e Escherichia coli Levofloxacin >=8: Resistant Escherichia coli Meropenem <=0.25: Suscept ible Escherichia coli Nitrofurantoin <=16: Susceptib le Escherichia coli Tetracycline <=1: Susceptibl e Escherichia coli Tobramycin <=1: Susceptibl e Escherichia coli Trimethoprim + Sulfamethoxazole <=20: Susceptible Performing Organization Address [facility] Centercotx Phone Number [facility] [address] [place] [address] CENTER ECG 12 lead (10/26/2020 6:19 PM STOCKROOM HELPER) Specimen Narrative Performed At Ventricular Rate 57 BPM GE MUSE Atrial Rate 242 BPM QRS Duration 82 ms Q-T Interval 472 ms QTC Calculation(Bazett) 459 ms P [place] 61 degrees R [place] 30 degrees T [place] 49 degrees Atrial flutter with variable A-V block Very poor baseline Nonspecific ST abnormality Abnormal ECG No previous ECGs available Confirmed by MD Duron Roberto ([id number]) on 10/01 8:21:45 AM Procedure Note Interface, External Ris In - 10/27/2020 8:21 AM STOCKROOM HELPER Ventricular Rate 57 BPM Atrial Rate 242 BPM QRS Duration 82 ms Q-T Interval 472 ms QTC Calculation(Bazett) 459 ms P [place] 61 degrees R [place] 30 degrees T [place] 49 degrees Atrial flutter with variable A-V block Very poor baseline Nonspecific ST abnormality Abnormal ECG No previous ECGs available Confirmed by MD Duron Roberto ([id number]) on 10/27/2020 8:21:45 AM Performing Organization Address [facility] Phone Number GE MUSE Type and screen, automated (10/26/2020 5:54 PM STOCKROOM HELPER) Pathologist Sig nature ABO/RH AUTOMATED A POSITIVE [facility] Ab Scrn NEGATIVE [facility] Specimen Blood Performing Organization Address [facility] Centercode Phone Number [address] [address] CBC with platelet count + automated diff (10/26/2020 5:54 PM STOCKROOM HELPER) Pathologist Sig nature WBC 5.1 3.5 - 10.5 [facility]/L [facility] RBC 4.78 4.63 - 6.08 [facility] M/L [facility] Hemoglobin 14.3 13.7 - 17.5 [facility] GM/DL [facility] Hematocrit 44.0 40.1 - 51.0 % [facility] MCV 92.1 79.0 - 92.2 fL [facility] MCH 29.9 25.7 - 32.2 pg [facility] MCHC 32.5 32.3 - 36.5 [facility] GM/DL [facility] RDW 14.1 11.6 - 14.4 % [facility] Platelets 88 (L) 150 - 450 K/CU [facility] MPV 11.4 9.4 - 12.4 fL [facility] nRBC 0 0 - 0 /100 WBC [facility] % Neutros 62 % [facility] % Lymphs 25 % [facility] % Monos 8 % [facility] % Eos 3 % [facility] % Baso 1 % [facility] # Neutros 3.18 1.78 - 5.38 [facility] # Lymphs 1.28 (L) 1.32 - 3.57 [facility] # Monos 0.41 0.30 - 0.82 [facility] # Eos 0.17 0.04 - 0.54 [facility] # Baso 0.06 0.01 - 0.08 [facility] Immature 0 0 - 1 % [facility] Specimen Blood Performing Organization Address City/State/Zipcode Phone Number [facility] [address] [place] [address] CENTER Comprehensive metabolic panel (10/26/2020 5:54 PM STOCKROOM HELPER) Protein, Total 7.4 6.0 - 8.3 [facility] gm/dL [facility] Albumin 3.9 3.5 - 5.0 [facility] g/dL [facility] Alkaline 55 40 - 150 U/L [facility] Phosphatase [facility] Total Bilirubin 1.1 0.2 - 1.2 [facility] mg/dL [facility] Sodium 141 136 - 145 [facility] meq/L [facility] Potassium 4.5 3.5 - 5.1 [facility] meq/L [facility] Chloride 107 98 - 107 [facility] meq/L [facility] CO2 25 22 - 29 meq/L [facility] BUN 26 (H) 7 - 21 mg/dL [facility] Creatinine 1.54 (H) 0.57 - 1.25 [facility] mg/dL [facility] Glucose 86 70 - 105 [facility] mg/dL [facility] Calcium 9.4 8.4 - 10.2 [facility] mg/dL [facility] AST 20 5 - 34 U/L [facility] ALT 10 6 - 55 U/L [facility] EGFR 43Comment: mL/min/1.73 [facility] ESTIMATED GFR IS sq [facility] NOT ACCURATE MEDICAL CENTER CREATININE CLEARANCE IN PREDICTING GLOMERULAR FILTRATION RATE. ESTIMATED GFR IS NOT APPLICABLE FOR DIALYSIS PATIENTS. Specimen Blood Narrative Performed At Property Assessment Monitor ID - DB [facility] Performing Organization Address City/State/Zipcode Phone Number [facility] [address] [place] [address] CENTER after 01/19/2020 Insurance Payer Benefit Plan / Subscriber ID Effective Dates Phone Addre ss Type Group MEDICARE MEDICARE A B [id number] 2000-Present Medicare [facility] A[employer]/[place] [id number] 2019-Present [employer] SUPPLEMENT/[facility] [employer] Advance Directives For more information, please contact: [phone] Code Status Date Activated Date Inactivated Comments Full Code 10/26/2020 6:08 PM 11/01/2020 3:14 PM This code status was determined by: Patient
--- OUTSIDE RECORDS SUMMARY | 2021-01-19 11:14 | XMS REPORT | Continuity of Care Document ---
:1935 Author Organization [employer] Care Team Providers Name Role Phone [employer] Unavailable Un available Problems Problem Status Onset Classification Date Comments Sourc e Date Reported STROKE Active 12/24/[address] LF Active 12/24/[address] Hyperlipidemia Resolved Problem 12/29/2016 [place] [facility] Hypertensive Resolved Problem 12/29/2016 [place] as disorder, Medical systemic arterial Ce nter (disorder) CEREBRAL Active [facility] INFARCTION, Medical UNSPECIFIED Center Medications Medication Details Route Status Patient Ordering Order Source Instructions Provider Date Hydrochlorothiazide 1 tab, PO, Inactive 12/26[facility] 12.5 MG / Losartan Daily, 0 2017 [facility] agnieszka Potassium 100 MG Refill(s) Cente r Oral Tablet Eliquis Notes: Same as: Inactive 12/26[facility] Roba s Eliquis 2017 [facility] ciprofloxacin 250 250 mg = 1 tab, Active 12/26[facility] [place] mg oral tablet PO, Q12H, X 3 2017 Med ical day, # 6 tab, 0 Center Refill(s) Occupational See Active 12/26[facility] Graciela Therapy Instructions, 2017 [facility] Evaluate and Treat DX: R MCA ischemic stroke, # 1 appl, 0 Refill(s) Physical Therapy See Active 12/26[facility] Danielle s Instructions, 2017 [facility] outpatient physical therapy Dx: right MCA stroke, # 1 appl, 0 Refill(s) apixaban 5 MG Oral 5 mg = 1 tab, Active 12/26[facility] [place] Tablet [Eliquis] PO, BID, # 60 2017 M edical tab, 3 Center Refill(s) ciprofloxacin 250 250 mg = 1 tab, Inactive 12/26 [facility] [place] mg oral tablet PO, Q12H, X 10 2017 Me dical day, # 20 tab, Center 0 Refill(s) atorvastatin 40 mg 40 mg = 1 tab, Active 12/26[facility] [place] oral tablet PO, Bedtime, # 2017 Medic al 30 tab, 3 Center Refill(s) sotalol 80 mg oral 40 mg = 0.5 Active H [place] tablet tab, PO, 2017 Medical Bedtime, # 30 Center tab, 3 Refill(s) Rocephin Notes: (Same Inactive [facility] As: Rocephin). 2017 Medical Use with 100 mL Center NS and infuse over 30 min MEDICATION WASTE Product Size: 1000 mg Product Wasted: ___ mg Sotalol 40 mg, Route: Inactive [place] Hydrochloride 80 MG PO, Q12H, 2017 Me dical Oral Tablet Dosing Weight Center 100, kg, Start date: 12/25/16 21:00:00 CONNIE CLEANER, Duration: 30 day, Stop date: 01/24/17 9:00:00 CONNIE CLEANER sotalol Notes: (Same No Longer [facility] As: Betapace) Active 2016 Medical 40 mg = 1/2 x Center 80 mg TAB pneumococcal Notes: (Same In[place] 13-valent vaccine as: Prevnar 13) 2017 [facility] gabapentin 400 MG Notes: (Same No Longer [facility] Oral Capsule as: Neurontin) Active 2017 [facility] Aspirin 325 MG Notes: (Do Not No Longer [facility] Enteric Coated Crush) Do not Active 2016 Nm dical Tablet crush or chew. Center Streptococcus Notes: (Same Inactive [facility] [place] pneumoniae serotype as: Prevnar 13) 2017 [facility] 1 capsular antigen Cente r diphtheria [id number] protein conjugate vaccine / Streptococcus pneumoniae serotype 14 capsular antigen diphtheria [id number] protein conjugate vaccine / Streptococcus pneumoniae serotype 18C capsular antigen d gabapentin 400 MG Notes: (Same No Longer [facility] Oral Capsule as: Neurontin) Active 2017 [facility] Saline Flush 0.9% Notes: (Same No Longer [facility] as: BD Active 2016 [facility] Posiflush) Center Docusate Notes: (Same No Longer [facility] as: Colace) (Do Active 2016 [facility] Not Crush) Center atorvastatin Notes: (Same No Longer [place] as: Lipitor) Active 2017 Medical Center pneumococcal Notes: (Same No Longer [facility] [place] 13-valent vaccine as: Prevnar 13) Active 2017 Medical Center sennosides, ASSISTED Notes: (Same No Longer [place] as: Senokot) Active 2017 Medical [place] heparin sodium, Notes: porcine No Longer [place] porcine 2500 UNT/ML heparin Active 2016 [facility] agnieszka Injectable Solution Cent er Dextrose 50% 25 gm, 50 mL, No Longer [place] Syringe Route: IVP, Active 2016 Medical Drug Form: INJ, Center Dosing Weight 100, kg, PRN, PRN Blood Glucose Results, Start date: 12/24/16 15:18:00 CONNIE CLEANER, Duration: 30 day, Stop date: 01/23/17 15:17:00 CONNIE CLEANER Glucagon 1 mg, Route: No Longer [place] IM, Drug form: Active 2016 Medical PDR/INJ, PRN, Center Dosing Weight 100, kg, PRN Blood Glucose Results, Start date: 12/24/16 15:18:00 CONNIE CLEANER, Duration: 30 day, Stop date: 01/23/17 15:17:00 CONNIE CLEANER sodium phosphate + 30 mmol, 10 mL, No Longer [place] sodium chloride Route: IVPB, Active 2016 Med ical 0.9% INJ 250 mL PRN, Dosing Cent er Weight 100, kg, PRN Abnormal Lab Result, Start date: 12/24/16 15:18:00 CONNIE CLEANER, Duration: 30 day, Stop date: 01/23/17 15:17:00 CONNIE CLEANER, FOR ICU USE ONLY potassium chloride Notes: (Same No Longer [place] as: KCL) Active 2016 Medical Infuse over 2 Center hours. Calcium Gluconate Notes: WASTE: No Longer [place] F/P - Sink; E - Active 2016 [facility] Municipal Trash Center Bin Calcium Carbonate Notes: (Same No Longer [place] 500 MG Chewable As: Tums) Active 2016 Medica l Tablet Calcium Center Carbonate 500 mg = 200 mg elemental calcium Dose = mg calcium carbonate ( mg elemental calcium) Magnesium Oxide Notes: (Same No Longer H [place] as: Mag-Ox 400) Active 2016 [facility] Magnesium oxide Center [id number] elemental magnesium Dose=____mg magnesium oxide (___mg elemental magnesium) potassium phosphate Notes: (Same No Longer 12/24 [place] + sodium chloride as: K Active 2016 [...] F/P - Sink; E - Active 2016 [facility] Trash Center Bin sotalol 80 mg oral [...] Total Volume: 1,000, Start date: 12/24/16 14:56:00 CONNIE CLEANER, Duration: 30 day, Stop date: 01/23/17 14:55:00 CONNIE CLEANER Flumazenil 0.2 mg, Route: Inactive [place] IVP, PRN, 2016 Medical Dosing Weight Center 100, kg, PRN Benzodiazepine Reversal, Initial dose, Start date: 12/24/16 12:56:00 CONNIE CLEANER, Duration: 30 day, Stop date: 01/23/17 12:55:00 CONNIE CLEANER Naloxone 0.4 mg, Route: Inactive [place] IVP, Q2MIN, 2016 Medical Dosing Weight Center 100, kg, PRN Narcotic Reversal, Start date: 12/24/16 12:56:00 CONNIE CLEANER, Duration: 8 doses or times, Stop date: Limited # of times Ondansetron 4 mg, Route: Inactive [place] IVP, ONCE, 2016 Medical Dosing Weight Center 100, kg, PRN Nausea & Vomiting, Start date: 12/24/16 12:56:00 CONNIE CLEANER Hydromorphone 0.5 mg, Route: Inactive [place] IVP, Q5Min, 2016 Medical Dosing Weight Center 100, kg, PRN Pain Score 7-10, Start date: 12/24/16 12:56:00 CONNIE CLEANER, Duration: 4 doses or times, Stop date: Limited # of times Hydralazine 10 mg, Route: Inactive [place] IVP, Q20Min, 2016 Medical Dosing Weight Center 100, kg, PRN Elevated BP, Start date: 12/24/16 12:56:00 CONNIE CLEANER, Duration: 2 doses or times, Stop date: Limited # of times Labetalol 10 mg, Route: Inactive [place] IVP, Q5Min, 2016 Medical Dosing Weight Center 100, kg, PRN Elevated BP, Start date: 12/24/16 12:56:00 CONNIE CLEANER, Duration: 5 doses or times, Stop date: Limited # of times Saline Flush 0.9% Notes: (Same No Longer [place] as: BD Active 2016 Medical Posiflush) Center Sodium Chloride 1,000 mL, Rate: No Longer Graciela 0.154 MEQ/ML 75 ml/hr, Active 2016 Medical Injectable Solution Infuse over: Center 13.3 hr, Route: IV, Dosing Weight 100 kg, Total Volume: 1,000, Start date: 12/24/16 12:28:00 CONNIE CLEANER, Duration: 30 day, Stop date: 01/23/17 12:27:00 CONNIE CLEANER Omnipaque 300 150 ml, Route: Inactive [place] INTRAARTERIAL, 2016 Medical Dosing Weight Center 100, kg, ONCE, Start date: 12/24/16 11:54:00 CONNIE CLEANER, Stop date: 12/24/16 11:54:00 CONNIE CLEANER iodixanol 100 mL, Route: Inactive [place] as IVP, Drug Form: 2017 Medical SOLN, Dosing Center Weight 100, kg, ONCALL, STAT, Start date: 12/24/16 11:29:00 CONNIE CLEANER, Duration: 1 doses or times, Dose = 2.2ml/kg, Max dose = 100ml -- "To be infused by Radiology Staff ONLY" Saline Flush 0.9% Notes: (Same No Longer [place] as: BD Active 2017 Medical Posiflush) Center Allergies, Adverse Reactions, Alerts No Known Medication Allergies Immunizations Immunization Date Given Site Status Last Comments Source Updated pneumococcal 12/25/2016 Left completed Vishal Rob as 13-valent vaccine deltoid Me dical Center Results Order Name Results Value Reference Date Interpretation Comments Janet rce Range CHEM PANEL Phosphorus 2.5 2.5 - 4.5 12/26 [facility] CHEM PANEL eGFR 58 12/26 Result [...] PANEL BUN 17 7 - 22 12/26 [facility] CHEM PANEL Glucose Lvl 95 70 - 99 12/26 [facility] CHEM PANEL Potassium Lvl 3.7 3.5 - 5.1 12/26 [place] [facility] CHEM PANEL Sodium Lvl 142 135 - 145 12/26 [facility] CHEM PANEL Creatinine 1.17 0.50 - 12/26 [facility] Lvl 1.40 [facility] CHEM PANEL CO2 27 24 - 32 12/26 [facility] CHEM PANEL Chloride Lvl 108 95 - 109 12[place] [facility] CHEM PANEL Calcium Lvl 8.4 8.5 - 10.5 12/26 Rob as [facility] CHEM PANEL AGAP 10.7 10.0 - 12/26 [facility] [place] 20.0 [facility] CHEM PANEL Magnesium Lvl 2.2 1.8 - 2.4 12/26 [facility] HEMATOLOGY Lymphocytes # 1.1 1.0 - 5.5 12/26 [facility] HEMATOLOGY Segs-Bands # 6.9 1.5 - 8.1 12/26 [facility] HEMATOLOGY Eosinophils # 0.2 0.0 - 0.5 12/26 [facility] HEMATOLOGY Basophils # 0.1 0.0 - 0.2 12/26 [facility] HEMATOLOGY Monocytes # 0.6 0.0 - 0.8 12/26 [facility] HEMATOLOGY Basophils 0.7 0.0 - 1.0 12/26 [facility] HEMATOLOGY Segs 77.6 45.0 - 12/26 [place] 75.0 [facility] HEMATOLOGY Monocytes 7.1 2.0 - 12.0 12/26 [facility] HEMATOLOGY Eosinophils 1.9 0.0 - 4.0 12/26 [facility] HEMATOLOGY Lymphocytes 12.7 20.0 - 12/26 [place] 40.0 [facility] HEMATOLOGY MPV 9.1 7.4 - 10.4 12/26 [facility] HEMATOLOGY Platelet 108 133 - 450 12/26 [facility] HEMATOLOGY RDW 13.8 11.5 - 12/26 [place] 14.5 [facility] HEMATOLOGY WBC 8.9 3.7 - 10.4 12/26 [facility] HEMATOLOGY RBC 4.84 4.70 - 12/26 [place] 6.10 [facility] HEMATOLOGY Hct 43.3 42.0 - 12/26 [place] 54.0 [facility] HEMATOLOGY MCH 30.0 27.0 - 12/26 [place] 31.0 [facility] HEMATOLOGY Hgb 14.5 14.0 - 12/26 [place] 18.0 [facility] HEMATOLOGY MCHC 33.6 32.0 - 12/26 [place] 36.0 [facility] HEMATOLOGY MCV 89.4 80.0 - 12/26 [place] 94.0 [facility] PARATHYROID Ca Norm WB 1.15 1.05 - 12/26 [place] PROFILE 1.25 [facility] PARATHYROID Ca Ion WB 1.19 1.05 - 12/26 [place] PROFILE 1.25 [facility] URINE AND UA Mucus Few /LPF None Seen 12/26 [facility] STOOL /LPF [facility] URINE AND UA Sq Epi None Seen 12/26 [facility] URINE AND UA <=1.0 0.1 - 1.0 12/26 [facility] Urobilinogen mg/dL [facility] URINE AND UA Bacteria Occasional None Seen 12/26 [place] STOOL /HPF /HPF [facility] URINE AND UA RBC 1 0 - 2 12/26 [facility] URINE AND UA Nitrite Negative Negative 12/26 [facility] (12/25/16 6:01 PM) [facility] URINE AND UA WBC 9 0 - 5 12/26 [facility] URINE AND UA Leuk Est Large Negative 12/26 [facility] *ABN* [facility] (12/25/16 6:01 PM) [place] URINE AND UA Blood Negative Negative 12/26 [facility] (12/25/16 6:01 PM) [facility] URINE AND UA Bili Negative Negative 12/26 [facility] *NA* /2016 [facility] (12/25/16 6:01 PM) [place] URINE AND UA Ketones Negative Negative 12/26 [facility] mg/dL mg/dL [facility] URINE AND UA pH 6.0 5.0 - 8.0 12/26 [facility] URINE AND UA Glucose Negative Negative 12/26 [facility] mg/dL mg/dL [facility] URINE AND UA Protein Negative Negative 12/26 [facility] mg/dL mg/dL [facility] URINE AND UA Turbidity Clear Clear 12/26 [facility] (12/25/16 6:01 PM) [facility] URINE AND UA Color Yellow Yellow 12/26 [facility] *NA* /2016 [facility] (12/25/16 6:01 PM) [place] URINE AND UA Spec Grav 1.012 <=1.030 12/26 [facility] [address] [place] [address] BACTERIAL - MRSA by PCR Negative 12/[place] (12/25/16 1:53 PM) /2016 [facility] CHEM PANEL eGFR 66 12/25 Result [...] Calcium Lvl 8.6 8.5 - 10.5 12/25 [facility] CHEM PANEL AGAP 13.0 10.0 - 12/25 [facility] CHEM PANEL Potassium Lvl 4.0 3.5 - 5.1 12/25 [place] [facility] CHEM PANEL Chloride Lvl 109 95 - 109 12/25 [facility] CHEM PANEL CO2 24 24 - 32 12/25 2016 [facility] CHEM PANEL Creatinine 1.05 0.50 - 12/25 [facility] Lvl 1.40 [facility] CHEM PANEL BUN 14 7 - 22 12/25 [facility] CHEM PANEL Sodium Lvl 142 135 - 145 12/25 [facility] CHEM PANEL Glucose Lvl 107 70 - 99 12/25 [facility] CHEM PANEL Phosphorus 2.4 2.5 - 4.5 12/25 [facility] CHEM PANEL Globulin 3.0 2.7 - 4.2 12/25 2016 [facility] CHEM PANEL A/G Ratio 1.0 0.7 - 1.6 12/25 [facility] CHEM PANEL AGAP 10.4 10.0 - 12/25 [facility] CHEM PANEL B/C Ratio 20 6 - 25 12/25 [facility] CHEM PANEL eGFR 62 12/25 [facility] Comment: The Medical eGFR is Center calculated [...] PANEL CO2 24 24 - 32 12/[address] CHEM PANEL Total Protein 5.9 6.4 - 8.4 12/25 [facility] CHEM PANEL Calcium Lvl 7.9 8.5 - 10.5 12/25 [facility] CHEM PANEL AST 12 0 - 37 12/[address] CHEM PANEL ALT 15 0 - 65 12/[address] CHEM PANEL Alk Phos 51 39 - 136 12/[address] CHEM PANEL Albumin Lvl 2.9 3.5 - 5.0 12/25 [facility] CHEM PANEL Bili Total 0.8 0.2 - 1.3 12/[address] CHEM PANEL Glucose Lvl 117 70 - 99 12/[address] CHEM PANEL BUN 22 7 - 22 12/[address] CHEM PANEL Creatinine 1.11 0.50 - 12/25 [facility] Lvl 1.40 [facility] CHEM PANEL Sodium Lvl 138 135 - 145 12/[address] CHEM PANEL Potassium Lvl 3.4 3.5 - 5.1 12/[address] CHEM PANEL Chloride Lvl 107 95 - 109 12/[address] CHEM PANEL Phosphorus 2.1 2.5 - 4.5 12/[address] CHEM PANEL Magnesium Lvl 2.2 1.8 - 2.4 12/25 [facility] HEMATOLOGY Basophils # 0.1 0.0 - 0.2 12/25 [facility] HEMATOLOGY Eosinophils # 0.2 0.0 - 0.5 12/25 [facility] HEMATOLOGY Monocytes # 0.7 0.0 - 0.8 12/25 [facility] HEMATOLOGY Lymphocytes # 1.5 1.0 - 5.5 12/25 [facility] HEMATOLOGY Eosinophils 2.4 0.0 - 4.0 12/25 [facility] HEMATOLOGY Monocytes 6.8 2.0 - 12.0 12/25 [facility] HEMATOLOGY Segs-Bands # 7.7 1.5 - 8.1 12/25 [facility] HEMATOLOGY Basophils 1.1 0.0 - 1.0 12/25 [facility] HEMATOLOGY Segs 74.9 45.0 - 12/25 [place] 75.0 [facility] HEMATOLOGY Lymphocytes 14.8 20.0 - 12/25 [place] 40.0 [facility] HEMATOLOGY MCHC 34.9 32.0 - 12/25 [place] 36.0 [facility] HEMATOLOGY MCH 30.8 27.0 - 12/25 [place] 31.0 [facility] HEMATOLOGY Platelet 128 133 - 450 12/25 [facility] HEMATOLOGY RDW 14.1 11.5 - 12/25 [place] 14.5 [facility] HEMATOLOGY RBC 4.74 4.70 - 12/25 [place] 6.10 [facility] HEMATOLOGY WBC 10.3 3.7 - 10.4 12/25 [facility] HEMATOLOGY MPV 9.3 7.4 - 10.4 12/25 [facility] HEMATOLOGY Hgb 14.6 14.0 - 12/25 [place] 18.0 [facility] HEMATOLOGY MCV 88.3 80.0 - 12/25 [place] 94.0 [facility] HEMATOLOGY Hct 41.8 42.0 - 12/25 [place] 54.0 [facility] PARATHYROID Ca Ion WB 1.16 1. - 12/25 [place] PROFILE . [facility] PARATHYROID Ca Norm WB 1.17 1.05 - 12/25 [place] PROFILE 1. [facility] CHEM PANEL Bili Direct 0.2 0.0 - 0.3 12/24 [facility] CHEM PANEL Alk Phos 51 39 - 136 12/24 [facility] CHEM PANEL Bili Total 1.0 0.2 - 1.3 12/24 [facility] CHEM PANEL ALT 12 0 - 65 12/24 [facility] CHEM PANEL AST 13 0 - 37 12/24 [facility] CHEM PANEL Albumin Lvl 3.1 3.5 - 5.0 12/24 a [place] [facility] CHEM PANEL Total Protein 6.2 6.4 - 8.4 12/24 [facility] CHEM PANEL Globulin 3.1 2.7 - 4.2 12/24 [facility] CHEM PANEL A/G Ratio 1.0 0.7 - 1.6 12/24 [facility] CHEM PANEL Bili Indirect 0.8 0.0 - 1.0 12/24 [facility] LIPIDS CHD Risk 2.65 4.00 - 12/24 [place] 7.30 [facility] LIPIDS HDL 52 >=61 mg/dL 12/24 [facility] LIPIDS Chol 138 <=199 12/24 [facility] mg/dL [facility] LIPIDS VLDL 12 12/24 [facility] LIPIDS Trig 59 <=149 12/24 [facility] mg/dL [facility] LIPIDS LDL 74 <=99 mg/dL 12/24 [facility] (Calculated) [facility] SPECIAL Hgb A1C 5.1 <=5.6 % 12/24 [facility] CHEMISTRY [facility] BLOOD BANK ABO/Rh A POS 12/24 [facility] RESULTS [facility] BLOOD BANK Antibody Scrn Negative 12/24 [facility] as RESULTS (12/24/16 11:20 AM) /2016 [facility] Center CHEM PANEL POC 1.1 0.5 - 1.4 12/24 [facility] Creatinine [facility] CARDIAC Troponin-I <0.02 0.00 - 12/24 [facility] ENZYMES 0.40 [facility] CARDIAC CK MB <0.5 0.5 - 3.6 12/24 [facility] ENZYMES [facility] CARDIAC Total CK 36 12 - 191 12/24 [facility] ENZYMES [facility] CARDIAC CK-MB INDEX <1.4 0.0 - 2.5 12/24 ENZYMES [facility] HEMATOLOGY PT 14.9 12.0 - 12/24 14.7 [facility] HEMATOLOGY INR 1.15 0.85 - 12/24 [place] 1.17 [facility] HEMATOLOGY PTT 32.1 22.9 - 12/24 [place] 35.8 /2016 [facility] HEMATOLOGY MCV 89.5 80.0 - 12/24 [place] 94.0 [facility] HEMATOLOGY RDW 14.1 11.5 - 12/24 [place] 14.5 [facility] HEMATOLOGY MCHC 33.6 32.0 - 12/24 [place] 36.0 [facility] HEMATOLOGY MCH 30.1 27.0 - 12/24 [place] 31.0 [facility] HEMATOLOGY MPV 8.6 7.4 - 10.4 12/24 [facility] HEMATOLOGY Platelet 127 133 - 450 12/24 [facility] HEMATOLOGY Hct 41.7 42.0 - 12/24 54.0 [facility] HEMATOLOGY Hgb 14.0 14.0 - 12/24 [place] 18.0 [facility] HEMATOLOGY RBC 4.65 4.70 - 12/24 [place] 6.10 [facility] HEMATOLOGY WBC 9.3 3.7 - 10.4 12/24 [facility] HEMATOLOGY Monocytes 5.3 2.0 - 12.0 12/24 [facility] HEMATOLOGY Eosinophils 2.8 0.0 - 4.0 12/24 [facility] HEMATOLOGY Basophils 0.8 0.0 - 1.0 12/24 [facility] HEMATOLOGY Lymphocytes 11.1 20.0 - 12/24 [place] 40.0 [facility] HEMATOLOGY Eosinophils # 0.3 0.0 - 0.5 12/24 [facility] HEMATOLOGY Basophils # 0.1 0.0 - 0.2 12/24 [facility] HEMATOLOGY Segs-Bands # 7.4 1.5 - 8.1 12/24 [facility] HEMATOLOGY Lymphocytes # 1.0 1.0 - 5.5 12/24 [facility] HEMATOLOGY Monocytes # 0.5 0.0 - 0.8 12/24 [facility] HEMATOLOGY Segs 80.0 45.0 - 12/24 [facility] 75.0 [facility] Center Pathology Reports No Data Provided for This Section Diagnostic Reports Report Value Date Source Brain wo contrast MRI EXAM: MRI BRAIN WITHOUT CONTRAST 7 [facility] DATE: 12/24/2016 12:28 PM [address] CLEANER Nelida ter INDICATION: 81 years old Mal [...] DX EXAM: XR CHEST 1 VIEW 12/24/2016 [facility] edical DATE: 12/24/2016 11:08 AM CONNIE CLEANER Nelida ter INDICATION: CVA COMPARISON: None TECHNIQUE: AP chest FINDINGS: There is left basilar atelec tasis versus scarring. Rest of the lungs are clear. No pleural effusions or pneumothorax. Cardiomediastinal silhouette is normal limits. No acute osseous abnormality. Soft tissues are within normal limits. IMPRESSION: Left basilar atelectasis versus sca rring. Angiogram cervical EMERGENT CEREBRAL REVASCULARIZATION 7 [facility] bilateral [facility] DATE: 12/24/2016 11:31 AM CONNIE CLEANER HISTORY:81 years Male wit h acute onset [...] administered by the anesthesia team with the guardian family member present. The patient's systolic arterial blood p ressure was kept between 140 - 180 mmHg. The groin was prepped and draped in the usual sterile fashion. The Left common femoral artery was accessed by using singlewall micropuncture technique and an 9 Fr [place]h Cordis sheath was place d. Under fluoroscopic and roadmap guidance, A 5 Turkmen Long Vert guide catheter coaxially advanced with a 0.035 ' Terumo Glidewire telescoped within an 8 Turkmen Balloon guide catheter to select the Righ [...] wo EXAM: CT BRAIN WITHOUT CONTRAST 12/24/2016 [facility] Medical contrast CT DATE: 12/24/2016 11:05 AM CONNIE CLEANER Nelida ter INDICATION: Acute cognitive change COMPARISON: [...] EXAM: CT ANGIOGRAM OF THE BRAIN 12/24/2016 [facility] Medical perfusion CTA EXAM: CT ANGIOGRAM OF THE NECK C enter EXAM: CT PERFUSION OF THE BRAIN DATE: 12/24/2016 11:11 AM CONNIE CLEANER INDICATION: Acute cognitive change COMPARISON: Contemporaneous CT [...] Comments Source Systolic (mm Hg) 123 12/26/2016 [facility] [place] [facility] Diastolic (mm Hg) 57 12/26/2016 [facility] Respitory Rate 20 12/26/2016 [facility] Temperature Oral (F) 100.4 F 12/26/2016 [facility] Systolic (mm Hg) 116 12/26/2016 [facility] [place] [facility] Diastolic (mm Hg) 63 12/26/2016 [facility] Respitory Rate 20 12/26/2016 [facility] [place] [facility] Systolic (mm Hg) 127 12/26/2016 [facility] dical [place] Diastolic (mm Hg) 67 12/26/2016 [facility] edical [place] Respitory Rate 20 12/26/2016 [facility] Temperature Oral (F) 99.5 F 12/26/2016 [facility] Temperature Oral (F) 99.9 F 12/26/2016 [facility] Heart Rate 55 12/25/2016 [facility] Weight 100 12/24/2016 [facility] Height 190.5 cm 12/24/2016 [facility] [facility] BMI Calculated 27.56 12/24/2016 [facility] Heart Rate 75 12/24/2016 [facility] Height 182.88 cm 12/24/2016 [facility] BMI Calculated 29.9 12/24/2016 [facility] Weight 100 12/24/2016 [facility] Heart Rate 78 12/24/2016 [facility] Encounters Location Location Encounter Encounter Reason Attending ADM DC Stat us Source Details Type Number For Provider Date Date Visit [facility] Inpatient [id number] Yue 12/24 12/26 [facility] Procedures Procedure Code Date Perfomer Comments Source Selective catheter 83968 12/24/2016 Rob as placement, common Medical carotid or innominate [place] ter artery, unilateral, any approach, with angiography of the ipsilateral extracranial carotid circulation and all associated radiological supervision and interpretation, includes angiography of the c Selective catheter 86334 12/24/2016 Rob as placement, internal Medic al carotid artery, Center unilateral, with angiography of the ipsilateral intracranial carotid circulation and all associated radiological supervision and interpretation, includes angiography of the extracranial carotid and ce Primary percutaneous 06055 12/24/2016 [place] transluminal [facility] thrombectomy, noncoronary, non-intracranial, arterial or arterial bypass graft, including fluoroscopic guidance and intraprocedural pharmacological thrombolytic injection(s); initial vessel Inguinal herniotomy [id number] [facility] Manipulation of the [id number] [facility] Assessment and Plan Assessment and Plan Date Source Extracted from:Title: Clinical Document 12/26/2016 [facility] Author: Jazmin Kent MD Date: 12/26/16 [facility] DISCHARGE SUMMARY Date of Admission: 12/24/16 [...] Patient was eventually transferred to [facility] stroke unit. He was assessed by PT [...] for Future Care: - Follow up with [facility] in 4-6 weeks, call [phone] for an appointment. 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 - Take all medications as prescribed. - Watch for bleeding since you are now o n a blood thinner, and seek medical attention for bleeding. - Use walker at all times to prevent falls. 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 Note: called by pharmacy this after that cipro i nteracts with sotolol. Changed to microb id 7 days 100mg bid and patient has plan to f/u with PCP. [id number] Patient was discharged earlier than expe cted due to rapid improvement and completion of workup faster than anticipated. Yue Zepeda MD Senior Specialist of Neurology Pager: [phone] Extracted from:Title: Clinical Document Author: Jazmin Kent [...] 0845 slumped to the s laxmi with INTERIOR DESIGN PROFESSOR, 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 911 was called [...] Bedtime 12/26/16 cefTRIAXone (Rocephin) 1 gm IVPB [id number] 12/24/16 docusate 100 mg PO Q12H 12/25/16 [...] fluent, comprehension intact, repetition and naming intact certified physical therapist assistant: 2-12 intact Motor: Tone: Normal Power: 5/5 [...] pending Jazmin Kent M.D Neurology PGY2 ID# [id number] Pager # [phone] Extracted from:Title: Stroke Team H&P Author: Deidra Simpson TON CONTAINER SHIPPER Date: 12/24/16 Stroke History and Physical Chief Complaint: R gaze, L Hemiparesis, History of Present Illness: 81 yo white male with pmh HTN, unknown arrhtymia, hernia repair 12/12/15 fully functional and independent at baseline LSN at 0830 when he walked to the bathroom, heard a commotion and checked on him and found h im at 0845 slumped to the side with INTERIOR DESIGN PROFESSOR, 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 911 was called [...] r 0 1c. 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 NPP documented full note. [id number] Plan of Care No Data Provided for This Section Social History Social History Date Source Social History TypeResponse 12/24/2016 [facility] Smoking Status Never smoker; Ready to [...]
--- OUTSIDE RECORDS SUMMARY | 2021-01-19 11:20 | XMS REPORT | Continuity of Care Document ---
:1935 Author Organization [facility] t Address [address] [place] [address] Care Team Providers Name Role Phone ANANDA Primary Care Physician Unavailable SYSTEM, NOT IN Attending Clinician Unavailable Elías Hurtado APN Attending Clinician Bennett Burks Attending Clinician ROHITH Attending Clinician Unavailable Rohith MONAE Attending Clinician Violeta Sales Attending Clinician Sheldon Escobar RN Attending Clinician Unavailable Elías HURTADO Attending Clinician Unavailable Ananad MONAE Attending Clinician ANANDA Attending Clinician Unavailable Leeanne Nation MD Attending Clinician Leeanne NATION Attending Clinician Unavailable Ari BLANC MSN Attending Clinician Unavailable Quentin BLANC, C Attending Clinician Unavailable Mk BLANC, O Attending Clinician Unavailable YUAN ROSARIO Attending Clinician Unavailable Yuan Rosario MD Attending Clinician Gigi MONAE Attending Clinician Yany BLANC Attending Clinician Unavailable Elías Galan Attending Clinician JOSSELIN Attending Clinician Unavailable Josselin HARRY Attending Clinician Sheila MONAE Attending Clinician SHEILA Attending Clinician Unavailable Te Elaine Attending Clinician Quentin PATTEN Attending Clinician Sushila Russo RN, A Attending Clinician Unavailable Ladonna Jacobs MD Attending Clinician Aquiles Willingham MD Attending Clinician Nydia MONAE Attending Clinician Dorothy Wilson MD Attending Clinician Camila Perdomo MD Attending Clinician Suha MONAE, Laurie Attending Clinician NYDIA Attending Clinician Unavailable Arelis Zepeda Attending Clinician DOROTHY WILSON Admitting Clinician Unavailable Arelis Zepeda Admitting Clinician Payers Payer Name Policy Type Policy Effective Date Expiration Date Sour ce Number MEDICAREMEDICARE PART [id number] 2000 MD Killian Schmidt AND 00:00:00 [id number] 2000- [id number] [place] [employer] [id number] 2019 MD Daily OF RETIRED 00:00:00 PERSONSAARP-SECONDARY [id number] 19-PresentMedigap MEDICAREMEDICARE A [id number] AUGUSTUS Deluna [id number] 2000- 00:00:00 - M edical PresentMedicare Center [facility] [id number] 2019 AUGUSTUS Arthur SUPPLEMENT/INDIVIDUAL 00:00:00 - M edical [id number] 2019-PresentMedig ap Problems Condition Condition Condition Status Onset Resolution Last Treating Co mments Source Name Details Category Date Date Treatment Clinician Date 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:00: n ureter ureter 00 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 12-12 An derso disease disease 00:00: n 00 Secondary Secondary Disease Active and and 12-12 Anderso unspecifie unspecifie 00:00: n d d 00 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, node, unspecifie unspecifie d d Hypertensi Hypertensi Disease Active 2019-11 M D ve chronic ve chronic 2-16 An derso kidney kidney 00:00: n disease disease 00 stage 3 stage 3 Personal Personal Disease Active 2019-11 history of history of -16 An derso stroke stroke 00:00: n 00 Pelvic Pelvic Disease Active 2019-11 lymphadeno lymphadeno -16 An derso abraham abraham 00:00: n 00 Benign Benign Disease Active 2019-[address] [facility] essential essential 12-26 [facility] - HTN HTN 00:00: Medical 00 [place] Chronic Chronic Disease Active 2019-[address] [facility] atrial atrial 12-26 [facility] fibrillati fibrillati 00:00: Me dical on [place] Gross Gross Disease Active 2019-[address] [facility] hematuria hematuria 12-26 [facility] - 00:00: Medical 00 [place] Urinary Urinary Disease Active 2019-[address] [facility] retention retention 12-26 [facility] - 00:00: Medical 00 [place] STROKE Diagnosis Active 2016-12-30 Mem oria -25 22:04:00 l STROKE 00:00: [place] 00 Active 12/24/2016 [facility] LF Diagnosis Active 2016-12-24 Mem oria 12-24 12:52:00 l LF 00:00: [place] 00 Active 12/24/2016 [facility] Irregular Irregular Disease Active heart beat heart beat 11-30 An derso 00:00: n 00 Hypertensi Hypertensi Disease Active M D on on 11-30 Anderso 00:00: n 00 Hyperlipid Problem Resolve 2016-12-29 Memoria emia d 03:48:45 l (disorder) Jose sherman Hyperlipid emia (disorder) Resolved Problem 12/29/2016 [facility] CEREBRAL Diagnosis Active 2016-12-30 M emoria INFARCTION 22:04:00 l , CEREBRAL Jose sherman UNSPECIFIE INFARCTION D , UNSPECIFIE D Active [facility] 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 Family History Family Member Diagnosis Comments Start Date Stop Date Source Natural father No Known Problem [facility] Natural father Prostate cancer MD Nancy kincaid Natural mother No Known Problem [facility] Natural brother Heart attack MD Nghia gardiner Natural brother Heart disease Natural sister Breast cancer MD Nghia gardiner Natural son Kidney cancer MD Micki sherman Natural son Brain cancer MD Daily Natural son Lung cancer MD Daily Social History Social Habit Start Date Stop Date Quantity Comments Source History of tobacco 1960-01-29 Current smoker MD Daily use 00:00:00 Sex Assigned At [facility] Exposure to Not sure MD Daily SARS-CoV-2 (event) Cigarettes smoked 2020-12-05 2020-12-05 MD Nghia gardiner current (pack per 00:00:00 00:00:00 day) - Reported Tobacco use and 2020-12-05 2020-12-05 Never used MD Akhtar on exposure 00:00:00 00:00:00 Alcohol intake 2020-12-05 2020-12-05 Ex-drinker MD Micki sherman 00:00:00 00:00:00 (finding) Tobacco Comment 2020-11-14 2020-11-14 Have not smoked MD Brayan puentes 00:00:00 00:00:00 in 50 years Smoking Status Start Date Stop Date Source Former smoker 2020-12-05 00:00:00 2020-12-05 00:00:00 MD Dayo masters Social History [facility] Medications Ordered Filled Start Stop Current Ordering Indication Dosage Frequency Signature Comments Components Source Medication Medication Date Date Medication? Clinician (SIG) Name Name pregabalin Yes 225mg Take 225 MD (LYRICA) 1-29 mg by Anderso 225 mg 16:24: mouth n capsule 52 twice daily. gabapentin Yes 600mg Take 600 MD (NEURONTIN) 1-29 mg by Anderso 300 mg 16:24: mouth as n capsule 52 needed. apixaban Yes 2.5mg Take 2.5 MD (ELIQUIS) 1-29 mg by Anderso 2.5 mg 16:24: mouth n tablet 52 every 12 (twelve) hours. sotalol Yes 80mg Take 80 mg MD (BETAPACE) 12-28 by mouth Dayo so 80 mg 16:24: twice n tablet 52 daily. traMADol Yes 50mg Take 50 mg MD (ULTRAM) 50 12-28 by mouth Nghia rso mg tablet 16:24: every 8 n 52 (eight) hours as needed. amLODIPine Yes 10mg Take 10 mg M D (NORVASC) 12-28 by mouth Hermilo o 10 mg 16:24: daily. n tablet 52 gabapentin 2019-11 Yes 400mg Take [address] [facility] [address] (NEURONTIN) 2-03 mg by [facility] - 400 MG 13:14: mouth as Medical capsule 09 needed . [place] sotaloL 2019-11 Yes 80mg Take [address] [facility] (BETAPACE) 2-03 by mouth. [facility] - 80 MG 13:14: Medical tablet 09 Center pregabalin 2019-11 Yes 75mg Q.5D Take [address] (LYRICA) 75 2-03 by mouth 2 Binta kes - MG capsule 13:14: (two) Medica l 09 times Center daily. apixaban 2019-11- No 5mg Q.5D Take [address] [facility] (Eliquis) 5 2- 12-03 by mouth 2 L ukes - mg Tab 10:49: 00:00 (two) Medical tablet 37 :00 times Center daily. olmesartan- 2019-11- No 1{tbl} QD Take [address] hydrochloro 2- 12- tablet by Binta kes - thiazide 09:20: 00:00 mouth Medical (BENICAR 21 :00 daily. Center HCT) 40-12.5 mg per tablet apixaban 2019-11 Yes 2.5mg Q.5D Take [address] [facility] [address] (ELIQUIS) 2-03 tablet [facility] - 2.5 mg Tab 00:00: (2.5 mg Medi agnieszka tablet 00 total) by Center mouth 2 (two) times daily. amLODIPine 2019-11 No 10mg QD Take [address] [facility] (NORVASC) 2-03 02-01 tablet (10 Esha es - 10 MG 00:00: 23:59 mg total) Medica l tablet 00 :00 by mouth Center daily for 60 days. cefdinir 2019-11- No 300mg Q.5D Take 1 [facility] (OMNICEF) 2 12-08 capsule [facility] - 300 MG 00:00: 23:59 (300 mg Medical capsule 00 :00 total) by Center mouth 2 (two) times daily for 5 days. amLODIPine 2019-11- No 10mg QD Take [address] [facility] (NORVASC) 2 12-03 tablet (10 Esha es - 10 MG 00:00: 00:00 mg total) Medica l tablet 00 :00 by mouth Center daily for 60 days. losartan-hy 2019-11- No 1{tbl} Take [address] drochloroth 12-26 tablet by Binta malina mcmahon 23:34: 00:00 mouth. Medical (HYZAAR) 09 :00 Center 100-12.5 mg per tablet Hydrochloro No 1 tab, PO, Memoria thiazide 12-26 Daily, 0 l 12.5 MG / 18:12: Refill(s) Her wiseman Losartan 00 Potassium 100 MG Oral Tablet Eliquis No Notes: Memoria 12-26 Same as: l 15:17: Eliquis [place] ciprofloxac Yes 250 mg = 1 Memoria in 250 mg 12-26 tab, PO, l oral tablet 15:12: Q12H, X 3 H erm day, # 6 tab, 0 Refill(s) Occupationa Yes See Memori a l Therapy 12-26 Instructio l 15:12: ns, MISC, [place] 00 ONCALL, Evaluate and Treat DX: R MCA ischemic stroke, # 1 appl, 0 Refill(s) Physical Yes See Memoria Therapy 12-26 Instructio l 15:09: ns, MISC, Jair 00 ONCALL, outpatient physical therapy Dx: right MCA stroke, # 1 appl, 0 Refill(s) apixaban 5 Yes 5 mg = 1 Mem oria MG Oral 12-26 tab, PO, l Tablet 15:03: BID, # 60 Jose n [Eliquis] 00 tab, 3 Refill(s) ciprofloxac No 250 mg = 1 Memoria in 250 mg 12-26 tab, PO, l oral tablet 15:03: Q12H, X 10 Jair 00 day, # 20 tab, 0 Refill(s) atorvastati Yes 40 mg = 1 M emoria n 40 mg - tab, PO, l oral tablet 15:03: Bedtime, # [place] 00 30 tab, 3 Refill(s) sotalol 80 Yes 40 mg = Uri marlon mg oral -27 0.5 tab, l tablet 15:03: PO, [place] 00 Bedtime, # 30 tab, 3 Refill(s) Rocephin No Notes: Memoria - (Same As: l 13:00: Rocephin). Jair 00 Use with 100 mL NS and infuse over 30 min MEDICATION WASTE Product Size: 1000 mg Product Wasted: ___ mg Sotalol No 40 mg, Memoria Hydrochlori 12-26 Route: PO, l de 80 MG 03:00: Q12H, [place] Oral Tablet 00 Dosing Weight 100, kg, Start date: 12/25/16 21:00:00 [employer], Duration: 30 day, Stop date: 01/24/17 9:00:00 [employer] sotalol No Notes: Memoria 12-26 (Same As: l 03:00: Betapace) [place] 00 40 mg = 1/2 x 80 mg TAB pneumococca No Notes: Uri marlon l 13-valent 12-26 (Same as: l vaccine 00:00: Prevnar [place] 00 13) gabapentin No Notes: Memor ia 400 MG Oral 12-25 (Same as: l Capsule 15:00: Neurontin) Herm shane 00 Aspirin 325 No Notes: (Do Memoria MG Enteric 12-25 Not Crush) l Coated 15:00: Do not Jair Tablet 00 crush or chew. Streptococc No Notes: Uri marlon us 12-25 (Same as: l pneumoniae 15:00: Prevnar Herm shane serotype 1 00 13) capsular antigen diphtheria [id number] protein conjugate vaccine / Streptococc us pneumoniae serotype 14 capsular antigen diphtheria [id number] protein conjugate vaccine / Streptococc us pneumoniae serotype 18C capsular antigen d gabapentin No Notes: Memor ia 400 MG Oral 12-25 (Same as: l Capsule 05:47: Neurontin) Herm shane Saline No Notes: Memoria Flush 0.9% 12-25 (Same as: l 03:00: BD Jair Posiflush) Docusate No Notes: Memoria 12-25 (Same as: l 03:00: Colace) Jair 00 (Do Not Crush) atorvastati No Notes: Uir marlon n 12-25 (Same as: l 03:00: Lipitor) Jair 00 pneumococca No Notes: Uri marlon l 13-valent 12-25 (Same as: l vaccine 00:00: Prevnar Jair 00 13) sennosides, No Notes: Uri marlon ALF 12-24 (Same as: l 23:00: Senokot) heparin No Notes: Memoria sodium, 1-25 porcine l porcine 22:00: heparin [place] 2500 UNT/ML 00 Injectable Solution Dextrose No 25 gm, 50 Uri marlon 50% Syringe 1-25 mL, Route: l 21:18: IVP, Drug [place] 00 Form: INJ, Dosing Weight 100, kg, PRN, PRN Blood Glucose Results, Start date: 12/24/16 15:18:00 [employer], Duration: 30 day, Stop date: 01/23/17 15:17:00 [employer] Glucagon No 1 mg, Memoria 12-24 Route: IM, l 21:18: Drug form: Jair PDR/INJ, PRN, Dosing Weight 100, kg, PRN Blood Glucose Results, Start date: 12/24/16 15:18:00 [employer], Duration: 30 day, Stop date: 01/23/17 15:17:00 [employer] sodium No 30 mmol, Memoria phosphate + 1-25 10 mL, l sodium 21:18: Route: Jair chloride 00 IVPB, PRN, 0.9% INJ Dosing 250 mL Weight 100, kg, PRN Abnormal Lab Result, Start date: 12/24/16 15:18:00 [employer], Duration: 30 day, Stop date: 01/23/17 15:17:00 [employer], FOR ICU USE ONLY potassium No Notes: Memori a chloride 1-25 (Same as: l 21:18: KCL) Jair 00 Infuse over 2 hours. Calcium No Notes: Memoria Gluconate 1-25 WASTE: F/P l 21:18: - Sink; E [place] - Municipal Trash Bin Calcium No Notes: Memoria Carbonate 1-25 (Same As: l 500 MG 21:18: Tums) [place] Chewable 00 Calcium Tablet Carbonate 500 mg = 200 mg elemental calcium Dose = mg calcium carbonate ( mg elemental calcium) Magnesium No Notes: Memori a Oxide 1-25 (Same as: l 21:18: Mag-Ox [place] 00 400) Magnesium oxide [id number] g elemental magnesium Dose=____m g magnesium oxide (___mg elemental magnesium) potassium No Notes: Memori a phosphate + 1-25 (Same as: l sodium 21:18: K [place] chloride 00 Phosphate. 0.9% INJ ) 1 mMol 250 mL phoshate has 1.47 mEq potassium Infuse over 4 hours potassium No Notes: Memori a phosphate-s 1-25 (Same as: l odium 21:18: Phos-NaK) Jair phosphate 00 Each 1.5 250 mg-280 gm pkt has mg-160 mg 250mg oral powder phosphorou for s. Mix reconstitut w/2.5oz ion water and stir. Magnesium No Notes: Memori a Sulfate -25 WASTE: F/P l 21:18: - Sink; E [place] - Municipal Trash Bin sotalol 80 No 80 mg = 1 Me moria mg oral 1-25 tab, PO, l tablet 21:11: Daily, 0 [place] 00 Refill(s) gabapentin Yes 400 mg = 1 M emoria 400 MG Oral 1-25 cap, PO, l Capsule 21:10: TID, # 90 Cassy nn 00 cap, 1 Refill(s) tramadol Yes 50 mg = 1 Uri marlon hydrochlori 1-25 tab, PO, l de 50 MG 21:09: BID, # 30 Herm shane Oral Tablet 00 tab, 0 Refill(s) sodium No 1,000 mL, Memori a chloride 1-25 Rate: 75 l 0.9% 1000 20:56: ml/hr, Jose n ml INJ 00 Infuse 1,000 mL over: 13.3 hr, Route: IV, Dosing Weight 100 kg, Total Volume: 1,000, Start date: 12/24/16 14:56:00 [employer], Duration: 30 day, Stop date: 01/23/17 14:55:00 [employer] Flumazenil 2017-0 No 0.2 mg, Uri marlon 12-24 Route: l 18:56: IVP, PRN, [place] 00 Dosing Weight 100, kg, PRN Benzodiaze pine Reversal, Initial dose, Start date: 12/24/16 12:56:00 [employer], Duration: 30 day, Stop date: 01/23/17 12:55:00 [employer] Naloxone 2017-0 No 0.4 mg, Memori a 12-24 Route: l 18:56: IVP, [place] 00 Q2MIN, Dosing Weight 100, kg, PRN Narcotic Reversal, Start date: 12/24/16 12:56:00 [employer], Duration: 8 doses or times, Stop date: Limited # of times Ondansetron 2017-0 No 4 mg, Memor ia 12-24 Route: l 18:56: IVP, ONCE, Jair 00 Dosing Weight 100, kg, PRN Nausea & Vomiting, Start date: 12/24/16 12:56:00 [employer] Hydromorpho 2017-0 No 0.5 mg, Mem oria ne 12-24 Route: l 18:56: IVP, [place] 00 Q5Min, Dosing Weight 100, kg, PRN Pain Score 7-10, Start date: 12/24/16 12:56:00 [employer], Duration: 4 doses or times, Stop date: Limited # of times Hydralazine 2017-0 No 10 mg, Uri marlon 12-24 Route: l 18:56: IVP, Jair 00 Q20Min, Dosing Weight 100, kg, PRN Elevated BP, Start date: 12/24/16 12:56:00 [employer], Duration: 2 doses or times, Stop date: Limited # of times Labetalol 2017-0 No 10 mg, Memori a 12-24 Route: l 18:56: IVP, [place] 00 Q5Min, Dosing Weight 100, kg, PRN Elevated BP, Start date: 12/24/16 12:56:00 [employer], Duration: 5 doses or times, Stop date: Limited # of times Saline No Notes: Memoria Flush 0.9% 1-25 (Same as: l 18:28: BD Jair 00 Posiflush) Sodium 2017-0 No 1,000 mL, Memori a Chloride 1-25 Rate: 75 l 0.154 18:28: ml/hr, Jair MEQ/ML 00 Infuse Injectable over: 13.3 Solution hr, Route: IV, Dosing Weight 100 kg, Total Volume: 1,000, Start date: 12/24/16 12:28:00 [employer], Duration: 30 day, Stop date: 01/23/17 12:27:00 [employer] Omnipaque 2017-0 No 150 ml, Memor ia 300 1-25 Route: l 17:54: INTRAARTER Jair 00 IAL, Dosing Weight 100, kg, ONCE, Start date: 12/24/16 11:54:00 [employer], Stop date: 12/24/16 11:54:00 [employer] iodixanol 2017-0 No 100 mL, Memor ia 1-25 Route: l 17:29: IVP, Drug Jair 00 Form: SOLN, Dosing Weight 100, kg, ONCALL, STAT, Start date: 12/24/16 11:29:00 [employer], Duration: 1 doses or times, Dose = 2.2ml/kg, Max dose = 100ml -- "To be infused by Radiology Staff ONLY" Saline No Notes: Memoria Flush 0.9% 1-25 (Same as: l 17:08: BD [place] 00 Posiflush) Immunizations Ordered Immunization Filled Immunization Date Status Commen ts Source Name Name [employer] [facility] SARS-CoV-2 2021-01-05 Completed MD Nghia gardiner Vaccination 00:00:00 Vital Signs Vital Name Observation Time Observation Value Comments Source WEIGHT 2020-12-28 13:04:04 104.2 kg WEIGHT 2020-12-28 13:04:04 104.2 kg HEIGHT 2020-12-28 08:16:00 183.5 cm WEIGHT 2020-12-28 08:16:00 105 kg HEIGHT 2020-12-28 08:16:00 183.5 cm WEIGHT 2020-12-28 08:16:00 105 kg WEIGHT 2020-12-07 16:48:00 105.4 kg WEIGHT 2020-12-07 16:48:00 105.4 kg WEIGHT 2020-12-07 13:47:00 105.5 kg WEIGHT 2020-12-07 13:47:00 105.5 kg HEIGHT 2020-11-13 11:03:00 183.5 cm WEIGHT 2020-11-13 11:03:00 108.1 kg HEIGHT 2020-11-13 11:03:00 183.5 cm WEIGHT 2020-11-13 11:03:00 108.1 kg Systolic blood 2020-12-28 19:40:00 128 mm[Hg] pressure Diastolic blood 2020-12-28 19:40:00 78 mm[Hg] MD Nancy ascencioson pressure Heart rate 2020-12-28 19:40:00 68 /min MD Oshea sonam Body temperature 2020-12-28 19:40:00 36.67 Natali MD Brayan romanon Respiratory rate 2020-12-28 19:40:00 18 /min MD Brayan puentes Oxygen saturation in 2020-12-28 19:40:00 98 /min MD Daily Arterial blood by Pulse oximetry Body weight 2020-12-28 19:04:04 104.2 kg MD Oshea sonam BMI 2020-12-28 19:04:04 30.95 kg/m2 MD Oshea sonam Body height 2020-12-28 14:16:00 183.5 cm MD Oshea sonam Systolic blood 2020-11-01 08:15:00 124 mm[Hg] [facility] Diastolic blood 2020-11-01 08:15:00 60 mm[Hg] [facility] S t [facility] Heart rate 2020-11-01 08:15:00 59 /min [facility] Body temperature 2020-11-01 08:15:00 37 Natali [facility] Respiratory rate 2020-11-01 08:15:00 18 /min [facility] Oxygen saturation in 2020-11-01 08:15:00 97 /min [facility] - Arterial blood by Medical Ce nter Pulse oximetry Body height 2020-10-26 23:00:00 188 [address] [facility] Body weight 2020-10-26 23:00:00 102.059 kg [facility] BMI 2020-10-26 23:00:00 28.89 kg/m2 [facility] Systolic (mm Hg) 2016-12-26 18:00:00 Uri rial Jair Diastolic (mm Hg) 2016-12-26 18:00:00 Mem orial [place] Respitory Rate 2016-12-26 18:00:00 Memori al [place] Temperature Oral (F) 2016-12-26 17:06:00 100.4 F [facility] [place] Systolic (mm Hg) 2016-12-26 17:00:00 Uri rial Jair Diastolic (mm Hg) 2016-12-26 17:00:00 Mem orial Jair Respitory Rate 2016-12-26 17:00:00 Memori al Jair Systolic (mm Hg) 2016-12-26 16:00:00 Uri rial [place] Diastolic (mm Hg) 2016-12-26 16:00:00 Mem orial Jair Respitory Rate 2016-12-26 16:00:00 Memori al Jair Temperature Oral (F) 2016-12-26 13:19:00 99.5 F Memorial Jair Temperature Oral (F) 2016-12-26 09:13:00 99.9 F [facility] [place] Heart Rate 2016-12-25 02:20:00 Memorial Jair Weight 2016-12-24 21:07:00 [facility] [place] Height 2016-12-24 21:07:00 190.5 cm Memorial Jair BMI Calculated 2016-12-24 21:07:00 Memori al Jair Heart Rate 2016-12-24 17:10:00 [facility] [place] Height 2016-12-24 17:06:00 182.88 cm Memorial Jair BMI Calculated 2016-12-24 17:06:00 Memori al [place] Weight 2016-12-24 17:06:00 [facility] [place] Heart Rate 2016-12-24 17:06:00 [facility] [place] Procedures Procedure Date / Time Performing Clinician Source Performed MD [place] BLOOD CONTROL 2020-12-28 21:42:00 Jessica Hurtado MD nderson AMYLASE LEVEL 2020-12-28 14:06:00 Jessica Hurtado MD Hermilo on COMPLETE BLOOD COUNT W/ 2020-12-28 14:06:00 Jessica Hurtado DIFFERENTIAL COMPREHENSIVE METABOLIC 2020-12-28 14:06:00 Jessica Hurtado PANEL FREE THYROXINE 2020-12-28 14:06:00 Jessica Hurtado MD Hermilo on LIPASE LEVEL 2020-12-28 14:06:00 Jessica Hurtado MD Hermilo on MAGNESIUM LEVEL 2020-12-28 14:06:00 Jessica Hurtado MD Hermilo on PHOSPHORUS LEVEL 2020-12-28 14:06:00 Jessica Hurtado MD Dayo son THYROID STIMULATING HORMONE 2020-12-28 14:06:00 Jessica Hurtado MD Results CBC 2020-12-28 14:06:00 Jessica Hurtado MD Hermilo on MANUAL DIFFERENTIAL 2020-12-28 14:06:00 Jessica Hurtado MD derson GLUCOSE LEVEL 2020-12-28 14:06:00 Jessica Hurtado MD Hermilo on BLOOD UREA NITROGEN 2020-12-28 14:06:00 Jessica Hurtado MD derson ELECTROLYTE PANEL 2020-12-28 14:06:00 Jessica Hurtado MD Nghia rson SERUM CREATININE 2020-12-28 14:06:00 Jessica Hurtado MD Dayo son .GLOMERULAR FILTRATION RATE 2020-12-28 14:06:00 Jessica Hurtado MD CALCIUM LEVEL TOTAL 2020-12-28 14:06:00 Jessica Hurtado MD derson ALBUMIN LEVEL 2020-12-28 14:06:00 Jessica Hurtado MD Hermilo on ALKALINE PHOSPHATASE 2020-12-28 14:06:00 Jessica Hurtado MD nderson ALANINE AMINOTRANSFERASE 2020-12-28 14:06:00 Jessica Hurtado MD ASPARTATE AMINOTRANSFERASE 2020-12-28 14:06:00 Jessica Hurtado MD TOTAL PROTEIN 2020-12-28 14:06:00 Jessica Hurtado MD Hermilo on FRACTIONATED BILIRUBIN 2020-12-28 14:06:00 Jessica Hurtado MD GENERAL LABORATORY ADD ON 2020-12-12 19:04:00 Jessica Hurtado MD TEST URINE CULTURE 2020-12-07 19:42:00 Jessica Hurtado MD Hermilo on AMYLASE LEVEL 2020-12-07 19:42:00 Jessica Hurtado MD Hermilo on COMPLETE BLOOD COUNT W/ 2020-12-07 19:42:00 Jessica Hurtado DIFFERENTIAL COMPREHENSIVE METABOLIC 2020-12-07 19:42:00 Jessica Hurtado PANEL FREE THYROXINE 2020-12-07 19:42:00 Jessica Hurtado MD Hermilo on GUA 2020-12-07 19:42:00 Jessica Hurtado MD Hermilo on LIPASE LEVEL 2020-12-07 19:42:00 Jessica Hurtado MD Hermilo on MAGNESIUM LEVEL 2020-12-07 19:42:00 Jessica Hurtado MD Hermilo on PHOSPHORUS LEVEL 2020-12-07 19:42:00 Jessica Hurtado MD Dayo son THYROID STIMULATING HORMONE 2020-12-07 19:42:00 Jessica Hurtado MD CYTOKINE PANEL 3 2020-12-07 19:42:00 Jessica Hurtado MD Dayo son B-TYPE NATRIURETIC PEPTIDE 2020-12-07 19:42:00 Jessica Hurtado MD SEDIMENTATION RATE 2020-12-07 19:42:00 Jessica Hurtado MD And erson NON-AUTOMATED C REACTIVE PROTEIN 2020-12-07 19:42:00 Jessica Hurtado MD And erson TROPONIN I 2020-12-07 19:42:00 Jessica Hurtado MD Hermilo on Results CBC 2020-12-07 19:42:00 Jessica Hurtado MD Hermilo on MANUAL DIFFERENTIAL 2020-12-07 19:42:00 Jessica Hurtado MD An derson GLUCOSE LEVEL 2020-12-07 19:42:00 Jessica Hurtado MD Hermilo on BLOOD UREA NITROGEN 2020-12-07 19:42:00 Jessica Hurtado MD derson ELECTROLYTE PANEL 2020-12-07 19:42:00 Jessica Hurtado MD Nghia rson SERUM CREATININE 2020-12-07 19:42:00 Jessica Hurtado MD Dayo son .GLOMERULAR FILTRATION RATE 2020-12-07 19:42:00 Jessica Hurtado MD CALCIUM LEVEL TOTAL 2020-12-07 19:42:00 Jessica Hurtado MD ALBUMIN LEVEL 2020-12-07 19:42:00 Jessica Hurtado MD on ALKALINE PHOSPHATASE 2020-12-07 19:42:00 Jessica Hurtado MD nderson ALANINE AMINOTRANSFERASE 2020-12-07 19:42:00 Jessica Hurtado MD ASPARTATE AMINOTRANSFERASE 2020-12-07 19:42:00 Jessica Hurtado MD TOTAL PROTEIN 2020-12-07 19:42:00 Jessica Hurtado MD on FRACTIONATED BILIRUBIN 2020-12-07 19:42:00 Jessica Hurtado MD CYTOKINE PANEL 3 FINAL 2020-12-07 19:42:00 Jessica Hurtado MD REPORT GUA MICROSCOPIC 2020-12-07 19:42:00 Jessica Hurtado MD on IR CT GUIDED BIOPSY 2020-12-05 21:45:00 Jessica Hurtado MD RETROPERITONEAL PATHOLOGY BIOPSY 2020-12-05 21:02:00 Jessica Hurtado MD Dayo son INTERPRETATION HP MICROSATELLITE 2020-12-05 20:57:00 Jessica Hurtado MDon INSTABILITY (MSI) ANALYSIS REPORT ELPIDIO MONAE SOLID TUMOR GENOMIC 2020-12-05 20:57:00 Jessica Hurtado MD ASSAY DNA V2 INTERPRETATION AND REPORT PROTHROMBIN TIME 2020-12-03 16:39:00 Venecia Schwab MD AP IHC HER2/STACEY 2020-12-03 16:35:56 Jessica Hurtado MD on AP IHC MSI (MLH1, MSH2, 2020-12-03 16:35:56 Jessica Hurtado MSH6, PMS2) AP IHC PD-L1 2020-12-03 16:35:56 Jessica Hurtado MD on AP IHC GATA3 2020-12-03 16:35:56 Jessica Hurtado MD on AP FGFR1 FUSION ANALYSIS 2020-12-03 16:35:56 Jessica Hurtado MD WITH INTERPRETATION AND REPORT ELPIDIO MONAE FGFR3 FUSION ANALYSIS 2020-12-03 16:35:56 Jessica Hurtado MD WITH INTERPRETATION AND REPORT AP FGFR1 2020-12-03 16:35:56 Jessica Hurtado MD Hermilo on AP FGFR3 2020-12-03 16:35:56 Jessica Hurtado MD Hermilo on AP MSI BY PCR 2020-12-03 16:35:56 Jessica Hurtado MD Dayo son AP NTRK1 FUSION ANALYSIS 2020-12-03 16:35:56 Jessica Hurtado MD WITH INTERPRETATION AND REPORT AP NTRK2 FUSION ANALYSIS 2020-12-03 16:35:56 Jessica Hurtado MD WITH INTERPRETATION AND REPORT AP NTRK3 FUSION ANALYSIS 2020-12-03 16:35:56 Jessica Hurtado MD WITH INTERPRETATION AND REPORT AP PIK3CA 2020-12-03 16:35:56 Jessica Hurtado MD Hermilo on AP IHC MTAP 2020-12-03 16:35:56 Jessica Hurtado MD Hermilo on EKG, 12-LEAD (SCHEDULED) 2020-12-03 00:00:00 Venecia Schwab MD RENAL 2020-11-15 20:07:20 Jessica Hurtado MD Hermilo on TOTAL PROTEIN 2020-11-13 21:16:00 Jessica Hurtado MD Hermilo on ALBUMIN LEVEL 2020-11-13 21:16:00 Jessica Hurtado MD Hermilo on CALCIUM LEVEL TOTAL 2020-11-13 21:16:00 Jessica Hurtado MD derson PHOSPHORUS LEVEL 2020-11-13 21:16:00 Jessica Hurtado MD Dayo son GLUCOSE, RANDOM 2020-11-13 21:16:00 Jessica Hurtado MD Hermilo on BLOOD UREA NITROGEN 2020-11-13 21:16:00 Jessica Hurtado MD derson SERUM CREATININE 2020-11-13 21:16:00 Jessica Hurtado MD Dayo son URIC ACID 2020-11-13 21:16:00 Jessica Hurtado MD Hermilo on FRACTIONATED BILIRUBIN 2020-11-13 21:16:00 Jessica Hurtado MD ALKALINE PHOSPHATASE 2020-11-13 21:16:00 Jessica Hurtado MDrson LACTATE DEHYDROGENASE 2020-11-13 21:16:00 Jessica Hurtado MD ALANINE AMINOTRANSFERASE 2020-11-13 21:16:00 Jessica Hurtado MD MAGNESIUM LEVEL 2020-11-13 21:16:00 Jessica Hurtado MD Hermilo on ASPARTATE AMINOTRANSFERASE 2020-11-13 21:16:00 Jessica Hurtado MD ELECTROLYTE PANEL 2020-11-13 21:16:00 Jessica Hurtado MD Nghia rson HC BETA HCG TUMOR MARKER 2020-11-13 21:16:00 [facility]ado MD [facility] CANCER ANTIGEN 125 2020-11-13 21:16:00 Jessica Hurtado MD And erson PROTHROMBIN TIME 2020-11-13 21:16:00 Jessica Hurtado MD Dayo son PARTIAL THROMBOPLASTIN TIME 2020-11-13 21:16:00 Jessica Hurtado MD COMPLETE BLOOD COUNT W/ 2020-11-13 21:16:00 Jessica Hurtado DIFFERENTIAL CARCINOEMBRYONIC ANTIGEN 2020-11-13 21:16:00 Jessica Hurtado MD CANCER ANTIGEN 19-9 2020-11-13 21:16:00 Jessica Hurtado MD HEPATITIS C VIRUS ANTIBODY 2020-11-13 21:16:00 Jessica Hurtado MD TROPONIN I 2020-11-13 21:16:00 Jessica Hurtado MD Hermilo on B-TYPE NATRIURETIC PEPTIDE 2020-11-13 21:16:00 Jessica Hurtado MD SEDIMENTATION RATE 2020-11-13 21:16:00 Jessica Hurtado MD And erson NON-AUTOMATED C REACTIVE PROTEIN 2020-11-13 21:16:00 Jessica Hurtado MD And erson CYTOKINE PANEL 3 2020-11-13 21:16:00 Jessica Hurtado MD Dayo son SERUM CREATININE 2020-11-13 21:16:00 Jessica Hurtado MD Dayo sonam .GLOMERULAR FILTRATION RATE 2020-11-13 21:16:00 Jessica Hurtado MD Results CBC 2020-11-13 21:16:00 Jessica Hurtado MD Hermilo on MANUAL DIFFERENTIAL 2020-11-13 21:16:00 Jessica Hurtado MD HEPATITIS C VIRUS AB SCREEN 2020-11-13 21:16:00 Jessica Hurtado MD W/REFLEX HCV PCR CYTOKINE PANEL 3 FINAL 2020-11-13 21:16:00 Jessica Hurtado MD REPORT HC 2019-NCOV COVID-19 2020-11-11 19:41:00 Jenna Malave MDrson 2D ECHO W/ DOPPLER 2020-11-01 09:45:23 [facility] (CW/PW/COLOR) [facility] OSI CT BX PELVIS 2020-11-01 02:31:15 Jenna Malave MD Hermilo on OSI CT CHEST 2020-11-01 02:31:07 Jenna Malave MD n CT NEEDLE BIOPSY KIDNEY 2020-10-31 16:30:00 [facility] TISSUE EXAM 2020-10-31 16:29:[address] [facility] CHEST WITH IV CONTRAST 2020-10-31 15:51:00 Mark Perez I [facility] CBC (HEMOGRAM ONLY) 2020-10-31 03:47:00 [facility] BASIC METABOLIC PANEL (7) 2020-10-31 03:47:00 [facility] PHOSPHORUS 2020-10-31 03:47:00 [facility] MAGNESIUM 2020-10-31 03:47:00 [facility] PATHOLOGY OUTSIDE 2020-10-31 00:00:00 Sang Willingham MD INTERPRETATION [facility] CBC (HEMOGRAM ONLY) 2020-10-30 03:44:00 [facility] BASIC METABOLIC PANEL (7) 2020-10-30 03:44:00 [facility] PHOSPHORUS 2020-10-30 03:44:00 [facility] MAGNESIUM 2020-10-30 03:44:00 [facility] PT/APTT 2020-10-30 03:44:00 [place] [facility] D-DIMER 2020-10-30 03:44:00 [place] [facility] FIBRINOGEN 2020-10-30 03:44:00 [place] [facility] VITAMIN B12 2020-10-30 03:44:00 [place] [facility] PERIPHERAL BLOOD SMEAR - 2020-10-30 03:44:00 [place], [facility] HOLD ONLY [facility] CYTOLOGY 2020-10-29 10:10:00 [facility] IR PERCUTANEOUS NEPHROSTOMY 2020-10-29 09:44:00 [facility] TUBE PLACEMENT [facility] CBC (HEMOGRAM ONLY) 2020-10-29 03:29:00 [facility] BASIC METABOLIC PANEL (7) 2020-10-29 03:29:00 [facility] PHOSPHORUS 2020-10-29 03:29:00 [facility] MAGNESIUM 2020-10-29 03:29:00 [facility] PROTHROMBIN TIME/INR 2020-10-29 03:29:00 Stephanie Mendoza [facility] PLATELET COUNT 2020-10-28 13:19:00 Asuncion Perdomo [facility] BASIC METABOLIC PANEL (7) 2020-10-28 04:32:00 [facility] PHOSPHORUS 2020-10-28 04:32:00 [facility] MAGNESIUM 2020-10-28 04:32:00 [facility] CBC (HEMOGRAM ONLY) 2020-10-28 04:32:00 [facility] OSI CT ABDOMEN AND PELVIS 2020-10-28 02:31:00 Jenna Malave MD HAPTOGLOBIN 2020-10-27 12:56:00 Leanne [facility] HEPATIC FUNCTION PANEL 2020-10-27 12:52:00 Asuncoin Perdomo [facility] LACTATE DEHYDROGENASE (LDH) 2020-10-27 12:52:00 Leanne Asuncion [facility] CYTOLOGY 2020-10-27 11:18:00 Makr Perez [facility] US RENAL COMPLETE 2020-10-27 10:15:[address] [facility] ABDOMEN/PELVIS WITH & 2020-10-27 09:05:00 Mark Perez [facility] WITHOUT IV CONTRAST Medical [facility] er (MANUAL DIFFERENTIAL) 2020-10-27 03:42:00 Leanne [facility] CBC (HEMOGRAM ONLY) 2020-10-27 03:42:00 [facility]OL[facility] (7) 2020-10-27 03:42:00 [facility]US 2020-10-27 03:42[facility] 2020-10-27 03:42:00 Artemio [facility] PROTHROMBIN TIME/INR 2020-10-27 03:42:00 Mark Perez [facility] APTT 2020-10-27 03:42:00 Mark Perez [facility] PERIPHERAL BLOOD SMEAR - 2020-10-27 03:42:00 Asuncion Perdomo [facility] I [facility] - PATHOLOGIST REVIEW [facility] r RETICULOCYTE COUNT 2020-10-27 03:42:[address] [facility] SARS-COV2/RT-PCR ([facility] & 2020-10-26 20:08:00 Crista Wilson [facility] - REF LABS) [facility] ABORH, MANUAL 2020-10-26 20:07:00 Catalina Ferrara [facility] URINE CULTURE 2020-10-26 18:46:00 Crista Wilson [facility] URINALYSIS W/ REFLEX URINE 2020-10-26 18:46:00 Crista Wilson [facility] ECG 12-LEAD 2020-10-26 18:19:03 Crista Wilson [facility] TYPE AND SCREEN, AUTOMATED 2020-10-26 17:54:[address] [facility] CBC W/PLT COUNT & AUTO 2020-10-26 17:54:00 [place] [facility] COMPREHENSIVE METABOLIC 2020-10-26 17:54:00 Halima Wilsonerine I [facility] MAGNESIUM 2020-10-26 17:54:00 Crista Wilson [facility] PHOSPHORUS 2020-10-26 17:54:00 Artemio Crista [facility] Selective catheter 2016-12-24 17:33:00 [facility] Jair placement, common carotid or innominate artery, unilateral, any approach, with angiography of the ipsilateral extracranial carotid circulation and all associated radiological supervision and interpretation, includes angiography of the c Selective catheter 2016-12-24 17:33:00 [facility] [place] placement, internal carotid artery, unilateral, with angiography of the ipsilateral intracranial carotid circulation and all associated radiological supervision and interpretation, includes angiography of the extracranial carotid and ce Primary percutaneous 2016-12-24 17:33:00 Jin Adam transluminal mechanical thrombectomy, noncoronary, non-intracranial, arterial or arterial bypass graft, including fluoroscopic guidance and intraprocedural pharmacological thrombolytic injection(s); initial vessel Inguinal herniotomy [facility] Manipulation of the [facility] Plan of Care Planned Activity Planned Date Details Comments Source Future Scheduled 2020-07-31 INFLUENZA VACCINE (#1) [facility] 00:[facility]:00 [code = INFLUENZA Medical Ce nter VACCINE (#1)] Future Scheduled 2019-11-[address] [facility] - Test 00:00:00 (12+) [code = Medical Center DEPRESSION SCREENING (12+)] Future Scheduled 2001-12-[address] [facility] 00:00:00 WELLNESS (YEAR 2 or Medical Center FIRST YEAR if no IPPE) [code = MEDICARE ANNUAL WELLNESS (YEAR 2 or FIRST YEAR if no IPPE)] Future Scheduled 2000 PNEUMOCOCCAL 65+ YRS [facility] - Test 00:00:00 (1 of 1 - Medical Center [id number] PCV13) [code = PNEUMOCOCCAL 65+ YRS (1 of 1 - [id number] PCV13)] Encounters Start End Encounter Admission Attending Care Care Encounter Source Date/Time Date/Time Type Type Clinicians Facility Department ID 2020-12-04 Outpatient DENTON CHAWLA [id number] 11:51:36 Micki sherman 2020-12-03 Outpatient DENTON BONNER MDA [id number] 11:31:22 CARLOS sherman 2021-01-05 2021-01-05 Outpatient SHEA NEWBERRY MDA MDA [id number] 09:23:36 09:43:11 BREANNE sherman 2020-12-28 2020-12-29 Outpatient SHEA HURTADO MDA MDA [id number] 10:43:37 07:36:47 JESSICA Agrawal rso n 2020-12-28 2020-12-28 Outpatient SHEA HURTADO MDA MDA [id number] 07:52:55 23:59:00 JESSICA Agrawal rso n 2020-12-28 2020-12-28 Outpatient SHEA MALAVE MDA MDA [id number] 08:12:22 10:37:19 JENNA sherman 2020-12-27 2020-12-27 Outpatient SHEA LOAIZA MDA MDA [id number] 18:34:00 23:59:00 Hermilo SWANSON 2020-12-07 2020-12-07 Outpatient SHEA HURTADO MDA MDA [id number] 15:33:55 23:59:00 JESSICA Agrawal rso n 2020-12-07 2020-12-07 Outpatient SHEA HURTADO MDA MDA [id number] 11:15:00 15:32:00 JESSICA Agrawal rso n 2020-12-07 2020-12-07 Outpatient SHEA MALAVE MDA MDA [id number] 13:39:44 15:14:25 JENNA sherman 2020-12-05 2020-12-05 Outpatient SHEA ROSARIO, MDA MDA [id number] 14:56:00 23:59:00 Ofe sherman 2020-12-05 2020-12-05 Outpatient SHEA HURTADO, MDA MDA [id number] 14:26:22 23:59:00 JESSICA hernandezo n 2020-12-04 2020-12-04 Outpatient SHEA MALAVE, MDA MDA [id number] MD 11:31:36 23:59:00 JENNA sherman 2020-12-03 2020-12-03 Outpatient SHEA SCHWAB, MDA MDA [id number] MD 10:27:36 23:59:00 VENECIA sherman 2020-12-03 2020-12-03 Outpatient SHEA SCHWAB, MDA MDA [id number] MD 10:40:18 11:38:36 VENECIA sherman 2020-12-03 2020-12-03 Outpatient SHEA SOSA, MDA MDA [id number] 09:06:25 09:06:25 JC sherman 2020-11-27 2020-11-27 Outpatient ANANDA, MDA MDA [id number] 16:06:37 16:06:37 JENNA sherman 2020-11-27 2020-11-27 Outpatient ANANDA, MDA MDA [id number] 16:05:46 16:05:46 JENNA sherman 2020-11-27 2020-11-27 Outpatient ANANDA, MDA MDA [id number] 15:53:49 15:53:49 JENNA sherman 2020-11-15 2020-11-15 Outpatient SHEA HURTADO, MDA MDA [id number] 12:35:51 12:35:51 JESSICA Agrawal rso n 2020-11-13 2020-11-13 Outpatient SHEA HURTADO, MDA MDA [id number] 15:01:27 23:59:00 JESSICA Agrawal rso n 2020-11-13 2020-11-13 Outpatient SHEA MALAVE, MDA MDA [id number] 10:54:47 14:53:38 JENNA sherman 2020-11-13 2020-11-13 Outpatient MDA MDA [id number] MD 10:48:25 10:48:56 Hermilo sherman 2020-11-11 2020-11-11 Outpatient SHEA MALAVE [facility] [id number] 13:24:05 13:24:05 JENNA sherman 2016-12-24 2016-12-26 Outpatient [place], [facility] [id number] 10:59:00 12:30:00 Yue Infante 67 Results Test Description Test Time Test Comments Results Result Comments Source MD MSI by PCR with interpretation and report 2021-01-02 22:1 4:00 Test Item Value Reference Range Interpretation Comme nts Archived Material (test code = 9986) Previously diagnosed tissues f [facility] were selected for molecular analysis. Results will be reported separately. MD Jnoes NTRK1 Fusion Analysis with Interpretation and [id number] 22:14:00 Test Item Value Reference Range Interpretation Comments Archived Material Previously diagnosed (test code = 9986) tissues from [id number] were selected for molecular analysis. Results will be reported separately. MD Jones FGFR3 Fusion Analysis with Interpretation and [id number] 22:14:00 Test Item Value Reference Range Interpretation Comments Archived Material Previously diagnosed (test code = 9986) tissues from [id number] were selected for molecular analysis. Results will be reported separately. MD Jones FGFR1 Mutation Interpretation and [id number] 22:13:00 Test Item Value Reference Range Interpretation Comments Archived Material Previously diagnosed (test code = 9986) tissues from [id number] were selected for molecular analysis. Results will be reported separately. MD Jones PIK3CA Mutation Analysis Interpretation and [id number] 22:13:00 Test Item Value Reference Range Interpretation Comments Archived Material Previously diagnosed (test code = 9986) tissues from [id number] were selected for molecular analysis. Results will be reported separately. MD Jones NTRK2 Fusion Analysis with Interpretation and [id number] 22:13:00 Test Item Value Reference Range Interpretation Comments Archived Material Previously diagnosed (test code = 9986) tissues from [id number] were selected for molecular analysis. Results will be reported separately. MD Jones NTRK3 Fusion Analysis with Interpretation and [id number] 22:13:00 Test Item Value Reference Range Interpretation Comments Archived Material Previously diagnosed (test code = 9986) tissues from [id number] were selected for molecular analysis. Results will be reported separately. MD DailyHI FGFR1 Fusion Analysis with Interpretation and [id number] 22:13:00 Test Item Value Reference Range Interpretation Comments Archived Material Previously diagnosed (test code = 9986) tissues from [id number] were selected for molecular analysis. Results will be reported separately. MD DailyHI FGFR2 Fusion Analysis with Interpretation and [id number] 22:13:00 Test Item Value Reference Range Interpretation Comments Archived Material Previously diagnosed (test code = 9986) tissues from [id number] were selected for molecular analysis. Results will be reported separately. MD DailyHI FGFR3 Mutation Interpretation and [id number] 22:12:00 Test Item Value Reference Range Interpretation Comments Archived Material Previously diagnosed (test code = 9986) tissues from [id number] were selected for molecular analysis. Results will be reported separately. MD DailyPathology Biopsy [id number] 22:42:00 Test Item Value Reference Range Interpretation Comments Addendum 1 (test code = [id number] 37) oQOVdk9hnf9IsaGUifK PmWYnmaCJoilNmwj66n HG6kU06PI8zUMJdEiW2 RHRekhJ6Zwx4DBUuZNN nkJJpQ140o0spg0wcry RtuGI2iRxbZZGuYICxQ WluXGZzMjAgVGhpcyBt a0YvEyoeSVAlSDRbjsX gaXMgYmVpbmcgaXNzdW MwKLAvQUXzi2ZxYEBiU KCmtCLkc04kjMGjfcPr bp1qlKuxrn3bIEE5wQC zLlxwYXJccGFyIEltbX Txt7mel2BcT2lvuEisZ Tkbc0UgoG1bDNexutMg oWErBx4tsSPoUOYpsgW 5aHIoHC8AQD6lp53avU LgBXTrqMEaqtTxuba8f TXeKV9IGXYuUK8MFKZs CP8KAQJpIW5kEKVDSpU uIEludGFjdCBudWNsZW VlAAO3lHCta4Wqe95at YFbNLVnXSIloYJxw6Lj HToqNCFyhSAhc7YsoLm hj2GuyEDunCVehtBctJ 9fB5XdO4mdo98oBAIqg OjfXULtTRRwyjDes01z tiTkkRdzd8GtSpDlNLp zzqF1yCS5WDEzndOtOI FzIGludGVybmFsIGNvb tWwu1zuCrAOoONjLUSs cmUsIHRoZSBsaWtlbGl xq83eQF1bDDOqQxFkgT f4IQBOAsUocZynfYZ0L 3sgdiDnJHpfZ0grM9xn lPD9TFhwYT1bCR8jM9V pi4U0SPosnHCsZLxvw0 CgDdekqHR6MZvIT1qpT EqsiP9bjVwqCSE9vV0g HOvnYKdspb8exXYwRBL conufSRZpAJX3WSOdlB i1ZeNtbHgqEQDdYXI9L kD0PSq4aSR6SXXywNuo VoQcNNI0KRVmIPp8vEE jGFQtcKv2UvWzHWM2Ba O9FVd6cBatQRKiaBt5F LYvTRC9QIA1XYv8kFho YbGxCT5wqP6bhQcahE3 jaGVtaWNhbCBzdGFpbm tyVeAkbvZxFTMbh2RhM JRfqD6ox7SgRKnrIqHu xcRuHHQxbFAls3SleMT 0aXZlIHBhcmFmZmluLW UtKbFuKPLzEQUaG4Ffb 24uXHBhclxwYXJkXGxp Zcj4CEnjmfB0TZl2mLR 5QWm4gAytWTr1hVO5RG UpiRjvQTKvJRB9Yhx8D Ej5iBM4UHZfvTa3UeFy UAH2ODB9HXu0uOY7LlD yfSx5EFfyNXS4IwHpMD y5rMl7LoRgrQb4FmPoL WG0BIM1IXcjCGQpQvpu V4v6WCHlRcZUHUbwAXZ wqPOuBNapzMA2WWidyH 5eGIqoeTuhKIPxkCn3S wYkiRmxCZHxGIV1QuH8 VFd9zTY7OTVyrOjpGiY jBXJ4MOGiZDq3rBEbZA HnvJy5QqNkNMU0DhI6K Zk4fQwhPIVgdGu1CKWh DKB0GVS0LPg7nQyhZnJ cYiBIRVIyXHBhclxiMF ayEEJxpXhmp7O0LAEnl 27bJqR8BqMzDIAqjtVx bmEgUEFUSFdBWSlccGF sPYPda1w1hMSmPMUld8 DnLJElJWU8yI3qAZQ3j GDmKOHwcmR5qAMrunNx uQereTQrCN3foiBtXOW nmYYkjenfYwW9gUG9IX lzIGNvbXBsZXRlLCBpb qSgtbOvBCIkdnXqy4t3 wBmdHO5mEKYdv7PqtKQ wi7XdF3WyaSNqGHPbz2 PgEOZyNO8fRA3tZ2Q9b FPdQMLlq2MaMLQfZGDr YRPxblMkXNJkCAEhf9F kPMpyxDcdjf4tt5DwLT S0RIBvPJRdjTPmsajaX gwkh0ZnwWGuCcLoblYf w0MdmY0caohhcQvxrIB pcyBpbmNvbXBsZXRlIG QpOYDqwjXoBOcqfK2bF HNbsVzmyGHvN3AuxDhj xPMbCG6qQGublAzztlB qWQNvTCOzKW6kf5YbYP Z9HVlsgG9aPDLvEQ2gM GQ0uG2tHQFyoXneWHiD K97qJWNyYGOjffDiabY ksGBzFKGrJW0uoBNaII 3wASI8UTbbxC3jDGCgG XQgaXMgZmFpbnQvYmFy TTq3XQJbnzScmDVeUih lWVOuNKB4vLFmnP1zBi AmAKInDhT1fM9tkjJjN VfctxWfF5BbzqLkOJlj RhRvULO7eLCtU5HrEG6 hURcaFJA9LXYacC0tzF BbU5SrETWiYHSuMHYra 4DlUFnmeOimS64ivMjw tNJfuQGsMbDuioBjx7X vkE2fbsahwLqlsLRymh G7ZTAlN06nUVAgCPJrI FHeTNK7uKNboB9yBuRw BEPdFzV0dK1ajzNzGQt obrPttrEdd94dcSD8GJ NicbZmZ5gpM7BvRgDbU K44uUNzBW3sqGLxNG9d ZAF2LAwuyA8gSSVrJEP wiMKwcX80KQ2vIOGrpu Ooa0h4qAveAJdfn5Rhl GhhbiBvciBlcXVhbCB0 jlPsICHtc2ShxLMbx6H yU4DvwQTbRAGgl7QxTE KdCP2aiBNdXZXgWfQvI O1nYMHTu4roOnYisMUh vI7zRdVNcAzjFU1cS65 iZCI9UfTcBRZeOfCbVA IwMThccGFyXHBhcmRcb Ls4VsNnzUeuICc1VUG7 JZzcRJM8XZpnROt1lPJ xWkFysHerRVdmRCI6In KuNNj6wYQoXvVhnFr5I UWrYGU2EZx8DJw1bQT2 HVTaoId9TlPtGYF3Efx wNIy1zIo9UKZqtMs6Fc AmOAS0POByTKIskMBzJ PGZMkDCCTK0rFIxBtm7 EYDtSJ1mkUQqikBzsWN iXCEcqoDjnDv1VrBqhO nxNEb3WNU7IAwuZOB5T Mf3ROd1cSNgLpCdtWdj UNvrKIZ6UcCwYIi8qXD cVoBtwGc4RCLmQOD0XA h3BPd7kDV7QCFavXn3S eBuXBM9ReufPHa7cLw5 KMPxoSf4SlUeVRV6EMP dJZJpIXVKVjRJI79aVP pcdGFiIDMrXHBhclxwY NQsPBokZym3QUlieeY9 HOi8vFH1SLy9lEmdVFg 2dYC9HWUzuHviMGQcPI W2Ekd8KFv3gBI4BWSmi Ls5ZaIxILN4RAO5UGg3 rVF5XeEikGs1FFgpLNL 2PkWsQRk4wKn3MzRbcE x1SfUzDJI1UOI7VWrxL NCjb6Ajg7VnJFCarxhd GIBeIFauNMg0GLgyiaX 3Dmf4vFE5TKm5dWjvWJ w5cPA2UBPjxDirMHEsV SB7Uax1GLl4lYB1BJLd pUb6YpNlTDJ9WGO3EXu 5mUN6AoLqvJv8VAcmSY A1VtExMJu7gTb3GjBot Vt0TaLfOEA3FKD5SCzc MFxpIFNwZWNpbWVucyB 5d5KuGWXnagHwLTZlat 5zzzojWhVhdb0lks7hy SdzSU3odQJmHDamyLq1 ZSBtYXJrZXJzIGFyZSB boDerFDSdhdJmo6GbAE bqzfYdq7UfNLSijGTsf 0GzBvVpw5YivxUihsUu T6GyFMGamIe0SSrmj1K dxJsudlK8ANZbl7Rrpi yoWdL5CAJhvx3brWedX CYzxHT8hK5sTTA5E2Hi SIBwBKcffE70tcJql31 beY8vwQTfgYLpKR9rXY dlZWtlbmRzLlxwYXIgS WYgdGhlIHNwZWNpbWVu IGhhcyBiZWVuIGZpeGV lALCnbwGfu54dMDZvbS imeaK1JiFad7YlstzuC BIhCHaiiFn2QIMONEJp FgBfvX21lv2rbUP3d8Q sWZ7sB3SsOEfVYOCkMA Fxm4XeyBQrDAskyUlty 3JldGljYWxseSByZXBy ZXNlbnQgYSBmYWxzZSB nJAnoeJu4KSmmLMj8fZ 90U3vgp2Z4JKkljmXhB OOwSHGcl8qsQKPtEGLa p0OgQ8lgDN6kRCPnieV oWVBbeGgbTYPix1SgHA BygZ2nWgYjroPqPByxX WtzIHdpdGhvdXQgYWZm HRU4gP6kQCbTIdJisXY vngnzOeAeDSG4uSUuQl BUaGVyZWZvcmUsIGEgb mVnYXRpdmUgcmVzdWx0 HPDuc3MlCVGoCHQ1KWS pZmllZCBieSBhZGRpdG ahttYwYUDvh4NqLF4pT UQybMMvqiT2uSOkAFOd bXBsZXMgaWYgYXBwcm9 wcmlhdGUuIFJlZmVyZW 5jZSBBcmJlciBldCBhb T4fIXJhyS3yNW8phL6w uJmxtN1fwVYeUwARl3g gZG7xcPUwCRF2PyFwJo bzNdwoFQE2Nb1rtKOzK ZswUGMkXTVpePDjuQ3r qcG2GXHvmq95ZHwlkVA uUCytwNCpbx9nRVEtNR YpESAkJBJjTD3oIZRfg 38bFNCmQJ0hnuPliMRh A1PtGYDluLK7vM3oCCS jkNXvGA8egHWySEIcd3 YaSIFsaeD8pCPqEWYde 02oJC92hD7oNMZcbSgj iS8fsSFvQPMyxzIqZBY xmiOHjUMfUBXtn6WhiG BplZW8OGXns1QwSbDzy pN6RDlmWKD4TKHur94z ZGVjYWxjaWZpZWQgdGl ug6Xawm9fFVYlz1VycS Jmx3paqHhiYTLkJXjnv GVycHJldGVkIHdpdGgg B2C7fSslmuGtgDGjphL 2fECicZquWPwdwK3gNT BvZiBmYWxzZSBuZWdhd Wk6oHL5WY2aDZEmC9Oo F5uifUGqISRqOYXmxBQ rap5gtLKvYBXjzaTzsR UqmLApYCZvqoUTeH61e k7woFU9s8PcLI0lT6Ka PSY1NFtbFFJytoNLMK4 YOBQmEnEZRuiag7dcp3 TxliWyZFMoTCUiKU7sK SFdRVJ5fO1nVNQwfHaw FCXiZNYpKAvnrFYkj1T qEBP9yMNsTeKOANQjnL ocfxKlgChes55wWFN2d U5bxkOof4IhE7ibqUFr ZPy9uERad0W5pYHnQYR hFQQbOFPzy7LuMIkeyw UvzE49HXxxuVAdn5IrF SN6oPExwMuiOYDkY47h KvhrHNHkjB0nfYNdqxY bi3VrztCpxOOzUXVnrp 45mA0qyZXhxXCxKtvoX XJccGFyIEluIGFkZGl0 vH8kICB3dLRcsTNcp0F kB7WpoRAlFNSrBSAxb3 n7uWIbFLDetyZUGQCYF tOgnfXoQRXQCP8jqCOj KFXryoATBo4UL0xpRNB 9 Diagnosis (test code = 34) l8ayrKBdTKCryBJ0IpK wUKUwe4ced9DebNSztZ JaAJfpmTChxuRdgy93t KX6yM50GD6iRSUjYzZ1 HSWchcQ2Avy0WVDlZTK aaTJgK417z2zqt0usop HkzEF8cVopAELwMSOpU WluXGZzMjAgQTogUmV0 xo5wMXOstG5wKFMzDUE nJBG3TiacNGYrjEs2Am HxpPjvLfLoWJ8DYYACF KTTKAKzN1LYA2uPY32A VTGCY50BGEKDKG8WDId JVEggVVJPVEhFTElBTC BQUklNQVJZLlxwYXJcc QQqNIpwBTwqrK3aDF9k X86lNOZtzJQwKKZqle3 = Gross Description (test e9vaaRGhWYZgnRSGPOY code = [id number]) wMFxhbnNpXHNwbHRwZ3 SiqrcoULcoTT9dFA4tb HicsVHnjCIfIN3TIJOk ZmYxXHBhcGVydzEyMjQ qJWVqvTSpyEO5THCbPA 1hcmdsMTgwMFxtYXJnc wY9VRVozTIbE9NcETMd RI5xpgztNIK8YSrieA1 apgZQPlkpUa7pwBCcbL tcZjFcZmNoYXJzZXQwX ETiaOunLQBvJHq2lI6E FhfbMVH6LCIUWauaBTP mQZ8Re3znVJIpzRJoGM C5HTzjhWPtHVOjCDRzR Ku6PHUyPRmitTRxGD8r sTzzRtpegCsnl1NuxCG cXGlkIDUxMDAyIFxcZG CyTB5DPfAoLFGfLeedX NFwENs5GQo6BU3TRtEt DRWwWWmePCP4REXnDPl 4MSbbFV7WCMSqRjNnHB S5QDE0IFb6XJTmOXQfW iBcXGYgQXJpYWwgXFxm cyAxMCBcXGZiIFxcZmw qUEteK94hzZqjbB2eSj cmjlQjALD4ATAeymNHO lxwbGFpblxlcGljTmVz dERvYzEgDQpcbHRycGF yXGxpbjBccmluMCANCl xsdHJjaFxiXGZzMjAgU aI8xf1uAVIgtE7bCRJq EWJzYDE5CPMxOOIos53 vkkdyuxK5QDPxEBK7DK KrkrNxKL0dIQkvqCTxA VQwLhXwwNajk8CyCFCy YXQgYWdncmVnYXRlIHR lYGYuZNR5VTNsInV9FQ VfXYWbpXadEE66jYFbx Hfoo3AxmNa5tFGmZWci XPIdUrJaHZXdk6FvZ4E 4XUXbDJfhk5gmDYJeTS lof5NzIMmAFKHTBH8QZ R1qlBT0SYfMA0UJV1pN mBCcUTK1dCM1KPCNEwu fuRC3nGC8mE98AISxMP WcfKNyATsvK789Y5W5B YKmIOstb9cxGSYkRBul k8HyMUgFNTQNUW3VKF9 jxPD5AOqCG4NYXUwfMO JqBggibGLZEWO7RYkcw BtgrUp0j3mlhIYzn9l4 CZynVUF9pLoymOYjjux smJSteTxiwtGtIL0RGK OwOCaiGGUxlPDXYKB2R V1nFPcupBGdxnfzSRMt R4VuP0NesvLbmRMoQBX wcnAqy6ddSKW5KWNmpJ NlxRWvLxSoVijuGJT3W Jedo7juWLV8VLAyvMDc dDAgDQpcZnMxNntcZXB iO2BhV5PvwtO7SWb4 Disclaimer (test code = [email or web address] 9844) jYAFgAALeh7muMIYurY FuZzEwMzNcZnRuYmpcd BYgETLvFwFsv9nbo509 iXVpt3fbBBLhRyD1kQZ eOLSiyKCkT064VJLnHY hmi9fct4GlCVWkgNFoh 1E8UPHEtlzwvNr7eLuy F03yp4H2EaagA9skCAM gFSCaL7QhQL9eVPSwTh h4XCP7CRZ3JPGqCGHqT 7OjKQ4mQGGwjBBsJMo8 o3lojVeoVTAhKQI2n5u zPDmuxgOmBT5azs0ggE f5y6xgnyAkQCFdVBMju IGIUAFyW4NwrCiuQj0o wBa4jEjjLywyKUI9Bws 8LF6jit22fzu7yRnzWP PbgvpfLbK8DBwcDJCbo fowVGu5SNytKXTboFE2 XVBkgHSuU9UrEXEqPK0 hekp2GWF6EBlxVPPhRx O3MGEdfNOoMCVbxGvyR Wdrh412HQH6EwFmPP4s P9Eco1Y2xV7qtZBbNYO wlJIoZoTmNSUdll2ydV UlDXggw4IlLXG8tbG6b WUqgCEfRKEyMM27Srzv q0AgQcdtBAG8DPIbdiB dh7Reg9hiHnIispAiS9 iiT8TbQJJjIBUzHKXtR sEzotAky5Iuh0YwbGYf qHn0m7fuXOWfSCSfdWn rm9maWXR0LJSxY5H7iJ Yzj5nySWwkTJDkyDH1o bB0UCXrtSVjU1LqxE5m UOWgDD7yonb9c2vzLKS 8QGdeGYXsApX2qnD8QE BcaGVhZGVyeTcyMFxmb 694GNI5CeNeOUKxu3Rr F0IlvUumM30stEyuW72 bDVEpcRordT1fpGqbdR 5cZjBcZnMyNFxxbFxwb FLzeqpkWCrkotR7LEal nepoRDWxZQcbG0xnFnI kKHPdcAdaULpxj4MqPC MrSDLpAtokmdI3INTXq 76lFYUhk6KtWKJepS9d rUBgGTdbpxSmrCK3GTe hdmUgYmVlbiBkZXZlbG 3jWODaZR2zTMAjhtOcj b8fcqUjSQHoQBPcD2Uz cmlzdGljcyBkZXRlcm1 dmeYxFRC0WDIBZX5HRZ IsYZRhm91zVGZugQpui U7ljYSbhkZuIPTbj1Mo vW1luQRJKZHbS5pbOP4 zNXlsc6YrhYTymKVnlE I5ZGSvo9NbHhYbsrNqb REcwSChU2BrbNrgO8rb JODjCJOavfWjsXZqz7S sCIPzlHK3nEBgPR8NDh BZd31lFYOlMCIJzpMaO JRmvJjodAY5sfL6jI4p LiBJZiBhcHBsaWNhYmx lEXBgm976ld5ribG3BA XyXTPabymqs9SwPRUbT HXngL21XSYtUBBypk8h tnowaDDjdeCzK3Wkxvi 1nP2kTRPyAHadWXVfMM ZzMjJcbGFuZzEwMzNca GljaFxmMVxkYmNoXGYx FIvgB6rwSjFvPrVbNso wYXJ9 MD Jones NGS Blood [id number] 21:42:09 Test Item Value Reference Range Interpretation Comments Molecular Diagnostics (Received) (test Yes code = 8400) MD Haddad [id number] 14:54:18 Test Item Value Reference Range Interpretation Comments T4 Free (test code 1.37 ng/dL 0.93-1.7 Testing P erformed at [facility] = 7502) Lab Marketing Writer [facility], [address], [address], [place] [address] MD [id number] 14:54:17 Test Item Value Reference Range Interpretation Comments TSH (test code = 2.10 See_Comment Note: New Methodology and 7578) Reference Range change effective 2017 at 1400 Testing Perform ed at [facility] Lab Marketing Writer [facility], [address], [address], [place] [address] [Automated mess age] The system which ge nerated this result transmit srinath reference range : 0.27 - 4.20 mcunit/mL. The reference range was not used to interpr et this result as maya l/abnormal. MD DailyXewa[id number] 14:53:12 Test Item Value Reference Range Interpretation Comments Neutrophil % (test code 74.5 % 42-66 H As p art of = 6491) Differential performed at [facility] Lab Marketing Writer [facility], [address], [place] [address] Lymphocyte % (test code 12.4 % 24-44 L = 6194) Monocyte % (test code = 6.7 % 2-7 6422) Eosinophil % (test code 4.3 % 1-4 H = 5520) Basophil % (test code = 1.4 % 0-1 H 5068) IGRE % (test code = 0.7 % 0-0.4 H IGRE % c ount includes 5958) Metamyelocytes, Myelocytes, and Promyelocytes. As part of Differe ntial performed at [facility] Lab Marketing Writer [facility], [address], [place] [address] Neutrophil Abs (test 5.20 K/uL 1.7-7.3 code = 6492) Lymphocyte Abs (test 0.87 K/uL 1-4.8 L code = 6195) Monocyte Abs (test code 0.47 K/uL 0.08-0.7 = 6423) Eosinophil Abs (test 0.30 K/uL 0.04-0.4 code = 5521) Basophil Abs (test code 0.10 K/uL 0-0.1 = 5069) IG Abs (test code = 0.05 K/uL 0-0.04 H 5954) Lab Interpretation Abnormal (test code = 56788-1) MD Daily.[id number] 14:53:10 Test Item Value Reference Range Interpretation Comments WBC (test code = 8034) 7.0 K/uL 4-11 RBC (test code = 6932) 4.48 See_Comment L [Aut omated message] The system whic h generated this result transmitted ref erence range: 4.50 - 6 .00 M/uL. The refer ence range was not u sed to interpret this result as normal/abnor mal. Hgb (test code = 5898) 13.6 See_Comment L As pa rt of CBC or as an individual orderable testi ng performed at [facility], [address], [address], [place] [address] [Automate d message] The sy stem which generated this result transmit srinath reference range : 14.0 - 18.0 gm/dL. T he reference range was not used to int erpret this result as normal/abnormal . Hct (test code = 5860) 41.8 % 40-54 As pa rt of CBC or as an individual orderable testi ng performed at [facility], [address], [address], [place] [address] MCV (test code = 6222) 93 fL 82-98 MCH (test code = 6220) 30.4 pg 27-31 MCHC (test code = 6221) 32.5 See_Comment [Au tomated message] The system [employer] h generated this result transmitted ref erence range: 31.0 - 3 6.0 gm/dL. The refe rence range was not u sed to interpret this result as normal/abnor mal. RDW-SD (test code = 47.9 fL 35.1-46.3 H 6972) RDW-CV (test code = 14.0 % 12-15.5 6971) Platelet count (test 149 K/uL 140-440 As part of CBC or as code = 6832) an individual orderable testi ng performed at [facility], [address], [place] [address] MPV (test code = 6282) 11.3 fL 4-10.4 H INRBC (test code = 0.0 % See_Comment The INRBC (instrument 5974) NRBC) value ref lects the enumeration of nucleated red b lood cells contained in a 200uL sampleof whole blood analyzed by the instrument. Thi s value maydiffer from the NRBC value repo rted in a manual differential,wh ich is based on a 100 cell differential. A s part of CBC testing performed at [facility] Marketing Writer [address], [place] [address] [Automated mess age] The system [employer] h generated this result transmitted ref erence range: <=0.0. T he reference range was not used to int erpret this result as normal/abnormal . Lab Interpretation Abnormal (test code = 80604-5) MD DailyFractionated Jtuxgyfoh2716-23-12 14:51:30 Test Item Value Reference Range Interpretation Comments Bili Total (test 0.8 mg/dL See_Comment Indocyanine Green (ICG) code = 5096) may cause false ly elevated biliru bin results. Total and direct bilirubin must not be measured from s amples containing indo cyanine green. False el evation of total bilirubin can be seen in patient s with IgG concentrations above 28 g/L.Testing Per formed at [facility], [address] [place] [address], [address], [place] [address] [Automat ed message] The sy stem which generated this result transmitted ref erence range: <=1.2. T he reference range was not used to interpr et this result as normal/abnormal . Bili Direct (test 0.2 mg/dL See_Comment Indocyanin e Green (ICG) code = 5094) may cause false ly elevated biliru bin results. Total and direct bilirubin must not be measured from s amples containing indo cyanine green. Testing Performed at [facility] Lab Ambu latory [facility], [address] [place] [address], [address], [place] [address] [Auto mated message] The sy stem which generated this result transmitted ref erence range: <=0.3. T he reference range was not used to interpr et this result as normal/abnormal . Bili Indirect (test 0.6 mg/dL 0-0.9 Testing Performed at [facility] code = 5095) Lab Marketing Writer [facility], [address] [place] [address] [address], [address], [place] [address] MD DailyGlomerular Filtration [id number] 14:51:29 Test Item Value Reference Range Interpretation Comments eGFR-AA (test code = 48 See_Comment L Normal eGFR >= 60 8062) mL/min/1.73 m2 Note: The eGFR is agnieszka culated using the CKD-E PI equation. The e GFR declines with a ge. eGFR <60 mL/min /1.73 m2 is considere d as "decreased". Th is equation should only be used for pat ients 18 and older. According to eulalia aguilar National Kidney Foundation's dney Disease Outcome Quality Initiat nimisha (KDOQI) classif ication and 2012 Kidney Disease Improvi ng Global Outcomes (KDIGO) Clinica l Practice Guidel ine, the stage of CK D should be categ orized based on estima srinath GFR. Stage Desc ription GFR mL/mi n/1.73 m21 Normal or h igh GFR >=902 Mildly decreased GFR 60-893a M ildly to moderately decreased GFR 45-593b Moderat carolina to severely decrea sed GFR 30-444 Patrica rely decreased GFR 15-295 Kidney f ailure <15 Testi ng Performed at [facility] Marketing Writer [facility], [address], [address], [place] [address] [Automat ed message] The sy stem which generated this result transmit srinath reference range : >=60 mL/min/1.73 sq. m. The reference range was not used to int erpret this result as normal/abnormal . eGFR-RODDY (test code = 42 See_Comment L Normal eGFR >= 60 8063) mL/min/1.73 m2 Note: The eGFR is agnieszka culated using the CKD-E PI equation. The e GFR declines with a ge. eGFR <60 mL/min /1.73 m2 is considere d as "decreased". Th is equation should only be used for pat ients 18 and older. According to eulalia aguilar National Kidney Foundation's dney Disease Outcome Quality Initiat nimisha (KDOQI) classif ication and 2012 Kidney Disease Improvi ng Global Outcomes (KDIGO) Clinica l Practice Guidel ine, the stage of CK D should be categ orized based on estima srinath GFR. Stage Desc ription GFR mL/mi n/1.73 m21 Normal or h igh GFR >=902 Mildly decreased GFR 60-893a M ildly to moderately decreased GFR 45-593b Moderat carolina to severely decrea sed GFR 30-444 Patrica rely decreased GFR 15-295 Kidney f ailure <15 Testin g Performed at [facility] Lab Marketing Writer [facility], [address], [address], [place] [address] [Automat ed message] The sy stem which generated this result transmit srinath reference range : >=60 mL/min/1.73 sq. m. The reference range was not used to int erpret this result as normal/abnormal . Lab Interpretation Abnormal (test code = 17566-3) MD DailyTotal [id number] 14:51:28 Test Item Value Reference Range Interpretation Comments Total Protein (test 7.1 g/dL 6.4-8.3 Testing Performed at [facility] code = 7649) Lab Marketing Writer [facility], [address], [place] [address] MD DailyPhosphorus [id number] 14:51:27 Test Item Value Reference Range Interpretation Comments Phosphorus (test code = 2.4 mg/dL 2.5-4.5 L Test ing Performed at 6817) [facility] Lab Ambulat [facility], [address], [address], [place] [address] Lab Interpretation (test Abnormal code = 23380-5) MD DailyMagnesium [id number] 14:51:26 Test Item Value Reference Range Interpretation Comments Magnesium (test code = 2.2 mg/dL 1.6-2.6 Testi ng Performed at 6359) [facility] Lab Ambulat [facility], [address], [address], [place] [address] MD DailyCalcium [id number] 14:51:25 Test Item Value Reference Range Interpretation Comments Calcium Lvl (test 9.4 mg/dL 8.4-10.2 Testing Pe rformed at code = 5258) [facility] Lab Ambulat [facility], [address], [place], [place] [address] MD DailyAlkaline Twqhetjfafc3484-05-93 14:51:24 Test Item Value Reference Range Interpretation Comments Alk Phos (test code = 61 U/L 40-129 Testin g Performed at [facility] 4735) Lab Marketing Writer [facility], [address], [place] [address] MD DailyAlbumin [id number] 14:51:23 Test Item Value Reference Range Interpretation Comments Albumin Lvl (test code 3.7 See_Comment Testi ng Performed at B = 4700) Lab Marketing Writer [facility], [address], [address], [place] [address] [Automated mess age] The system which ge nerated this result tra nsmitted reference range : 3.5 - 5.2 gm/dL. The refe rence range was not used to interpret this result as normal/abnormal . MD DailyAspartate [id number] 14:51:22 Test Item Value Reference Range Interpretation Comments AST (test code = 38 U/L See_Comment Testing Per formed at [facility] 4731) Lab Marketing Writer [facility], [address], [address], [place] [address] [Automated mess age] The system which ge nerated this result transmit srinath reference range : <=40. The reference range was not used to interpr et this result as maya l/abnormal. MD DailyBfepmuimYRY0303-72-88 14:51:21 Test Item Value Reference Range Interpretation Comments ALT (test code = 16 U/L See_Comment Testing Per formed at [facility] 4705) Lab Marketing Writer [facility], [address], [place] [address] [Automated mess age] The system which ge nerated this result transmit srinath reference range : <=41. The reference range was not used to interpr et this result as maya l/abnormal. MD DailyElectrolyte [id number] 14:51:20 Test Item Value Reference Range Interpretation Comments Sodium Lvl (test code = 139 See_Comment Test ing Performed at [facility] 7307) Lab Marketing Writer [facility], [address], [address], [place] [address] [Automated mess age] The system which ge nerated this result tra nsmitted reference range : 136 - 145 mEq/L. The reference range was not u sed to interpret this result as normal/abnormal . Potassium Lvl (test 4.7 See_Comment Testing Performed at [facility] code = 6854) Lab Marketing Writer [facility], [address], [address], [place] [address] [Automated mess age] The system which ge nerated this result tra nsmitted reference range : 3.5 - 5.1 mEq/L. The reference range was not u sed to interpret this result as normal/abnormal . Chloride (test code = 106 See_Comment Testin g Performed at [facility] 5279) Lab Marketing Writer [facility], [facility], [place] [address] [Automated mess age] The system which ge nerated this result tra nsmitted reference range : 98 - 107 mEq/L. The refe rence range was not u sed to interpret this result as normal/abnormal . CO2 (test code = 5227) 27 See_Comment Testi ng Performed at [facility] Lab Marketing Writer [facility], [address], [address], [place] [address] [Automated mess age] The system which ge nerated this result tra nsmitted reference range : 22 - 29 mEq/L. The refe rence range was not u sed to interpret this result as normal/abnormal . Anion Gap (test code = 6 See_Comment Testi ng Performed at [facility] 9325) Lab Marketing Writer [facility], [facility], [place] [address] [Automated mess age] The system which ge nerated this result tra nsmitted reference range : 4 - 14 mEq/L. The refe rence range was not u sed to interpret this result as normal/abnormal . MD Daily.Serum Kxeoypnnac4984-30-42 14:51:19 Test Item Value Reference Range Interpretation Comments Creatinine (test code = 1.50 mg/dL 0.67-1.17 H Test ing Performed 5399) at [facility] Lab Marketing Writer [facility], [address], [place], [place] [address] Lab Interpretation (test Abnormal code = 72135-1) MD [id number] 14:51:18 Test Item Value Reference Range Interpretation Comments BUN (test code = 20 mg/dL 6-23 Testing Per formed at [facility] 5055) Lab Marketing Writer [facility], [facility], [address], [place] [address] MD DailyGlucose [id number] 14:51:17 Test Item Value Reference Range Interpretation Comments Glucose Level (test code 145 mg/dL 70-99 H Eff ective 06/25/16, = 5699) the glucose reference inter vals have been updat ed based on Americ an Diabetes Associ ation guidelines (Standards of Medical Care in Diabetes 2016. Diabetes Care 2 016; 39: S13-S22).Fa sting blood glucose:Normal: 70 99 mg/dLImpaire d fasting glucose (increased risk for diabetes or pre-diabetes): 100 125 mg/dLDiabet es mellitus: >/=1 26 mg/dL Random bl ood glucose:Normal: 70 199 mg/dLNote: Random glucose >100 mg/dL is associ ated with increased risk for diabetes Te sting Performed at [facility] Lab Marketing Writer Bl, [address], [address], [place], [place] [address] Lab Interpretation (test Abnormal code = 56677-9) MD DailyLipase [id number] 14:40:17 Test Item Value Reference Range Interpretation Comments Lipase Lvl (test code 58 U/L 13-60 Testin g Performed at [facility] = 6165) Lab Marketing Writer [facility], [address], [address], [place] [address] MD DailyAmylase [id number] 14:40:16 Test Item Value Reference Range Interpretation Comments Amylase Lvl (test code 62 U/L 28-100 Testi ng Performed at [facility] = 4806) Lab Marketing Writer [facility], [address], [address], [place] [address] MD DailyGeneral Laboratory Add-On [id number] 19:21:41 Test Item Value Reference Range Interpretation Comments Ordered (test code Test Not Added Test no t added. No = 6568) tube available in lab to add on t he tests. Notified Jessica Hurtado , YARELI @12/12/2020 1:21 :25 PM [employer] for a recollect. Test Needed (test ck, ck-mb code = 7604) MD DailyBNP (Sendout)2020-12-10 16:39:38 Test Item Value Reference Range Interpretation Comments BNP (test code = 48.0 pg/mL 0-100 Elevated re sults are in 4997) line with incre asing severity of con gestive heart failure. Minor elevations betw een 100 and 300 may be seen with Myocardial Isch emia, Sodium retainin g drugs, and compensated /treated heart failure. performed at: [facility] lab, [facility], [address] [place] [address], [address]. MD DailyTroponin I (Sendout)2020-12-10 16:39:37 Test Item Value Reference Range Interpretation Comments Troponin-I (test code <0.02 0-0.4 Perfor jv Lab:[facility] Lab, = 7659) [facility] [id number] [place], [place] [address] MD DailyCytokine Panel 22:52:15 Test Item Value Reference Range Interpretation Comments INF gamma (test code = 598722) <LLOQ 0-5 IL-6 (test code = 719476) <LLOQ 0-5 TNF alpha (test code = 323292) 8 pg/mL 0-22 MD DailySed [id number] 21:55:27 Test Item Value Reference Range Interpretation Comments Sed Rate (test code = 24 See_Comment H [Auto mated message] 4537-7) The system [employer] generated this result transmitted ref erence range: 0 - 9 mm /hr. The reference r nick was not used to interpret this result as normal/abnor mal. Lab Interpretation (test Abnormal code = 05079-0) MD Hou Fpfxawiorbq1764-14-19 20:47:16 Test Item Value Reference Interpretation Comments Range UA RBC (test code = >182 See_Comment H [Automa srinath 7891) message] The system which generated this result transmitted reference range : 0 - 2 /HPF. The reference range was not used to interpret this result as normal/abnormal . UA WBC (test code = >182 See_Comment H [Automa srinath 7904) message] The system which generated this result transmitted reference range : 0 - 2 /HPF. The reference range was not used to interpret this result as normal/abnormal . UA Mucous (test code TRACE TRACE /HPF = 7887) UA Bacteria (test 1+ NOT SEEN /HPF A code = 7870) UA Squam Epi (test NOT SEEN OCC /HPF code = 7896) UA Renal Epi (test <1 See_Comment H [Automat ed code = 7893) message] The system which generated this result transmitted reference range : <=0 /HPF. The reference range was not used to interpret this result as normal/abnormal . IWONA (test code = Some reporting IWONA) parameters within the Urinalysis test have changed due to the implementation of new instrumentation in the [facility], allowing greater sensitivity of measurement. Urinalysis results reported by the [facility] using existing instrumentation, as well as Urinalysis testing performed manually or by backup methodology at the [facility] will remain relatively unchanged. New reporting parameters and units will now be reported for all campuses. Lab Interpretation Abnormal (test code = 07488-5) MD DailyAzrdxsjmRJL2649-97-00 20:38:56 Test Item Value Reference Range Interpretation Comments CRP (test code = 17.26 mg/L Reference r anges for HS 5235) CRP assay are a s follows: Reference range s when used to assess cardi ac risk: <1.00 mg/L Low cardiovascular risk 1.00-3.00 mg/L Average cardiovascular risk >3.00 mg/L High cardi ovascular risk.Reference ranges when used to assess inflammatory re sponses: Less than or eq ual to 10.00 mg/L. MD Ohara [id number] 20:29:52 Test Item Value Reference Range Interpretation Comments UA Color (test code = 7877) Yellow Yellow UA Appear (test code = 7868) Hazy Clear A UA Glucose (test code = 7881) NEG NEG mg/dL UA Bili (test code = 7871) NEG NEG UA Ketones (test code = 7884) NEG NEG mg/dL UA Spec Grav (test code = 7894) 1.017 1.002-1.035 UA Blood (test code = 7872) Large NEG A UA pH (test code = 7909) 6.0 4.5-8.0 UA Protein (test code = 7890) 30 mg/dL NEG A UA Urobilinogen (test code = 7903) POS NEG A UA Nitrite (test code = 7888) POS NEG A UA Leuk Est (test code = 7886) Large NEG A Lab Interpretation (test code = Abnormal 64819-6) MD DailyIR CT GUIDED BIOPSY [id number] 22:06:11Date of Procedure: 12/05/20 Attending Physician: Jem Yu MD Communications Analyst: None 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 Consent: The procedure, risks, indications and alternatives were explained. All questions were answered and informed consent was obtained. I have reviewed the history and physical dictated by the mid-level practitioner / fellow. Sedation/Anesthesia: None Procedure in Detail: A time out was performed prior to the start of the procedure and the correct patient, procedure, presence of consent, site, and side were confirmed with all members of the team. With the patient in the prone position, the skin overlying the area of interest was prepped and draped in the usual sterile fashion. Lidocaine 1% was used for l ocal anesthesia. Using a posterior approach under Computed Tomography image- guidance, a 19 gauge needle was advanced down to the left retroperitoneum. An image was obtained and placed into the medical record. Samples were obtained for evaluation. Sampling: Core Biopsy: A 20 gauge needle used to obtain samples for surgical pathology evaluation. Total number of samples: 3 Specimens Disposition: Diagnostic Biopsy: The biopsy samples were submitted to pathology. Additional Comments: None Estimated Blood Loss: Minimal Immediate Complications: None Disposition: PACU Plan: 1. No follow-up with Interventional Radiology required.MD DailyProthrombin [id number] 17:20:07 Test Item Value Reference Range Interpretation Comments PT (test code = 14.1 See_Comment PT/INR was 5902-2) rechecked by repeat analysis.Halley see Performed at[facility] Lab Marketing Writer [id number] [address] [Automat ed message] The system which generated this result transmitted reference range : 12.0 - 14.3 second(s). The reference range was not used to interpret this result as normal/abnormal . INR (test code = 1.14 0.90-1.10 H PT/INR was 6301-6) rechecked by repeat analysis.Halley see Performed at[facility] Lab Marketing Writer [id number] [facility] [address] IWNOA (test code = IWONA) This lab cannot be scheduled at the following locations due to collection/procc essing restrictions: [facility] and [facility]. Lab Interpretation Abnormal (test code = 94627-9) MD Echeverria CT BX [id number] 02:31:19Study acquired at another institution. For comparison only. No MD Daily originated interpretation requested or available.MD Juwan AZUL Gehmi7922-10-98 02:31:11Study acquired at another institution. For comparison only. No [facility] originated interpretationrequested or available.[facility] 2020-11-28 02:31:03Study acquired at another institution. For comparison only. No [facility] originated interpretationrequested or available.[facility] Pathology Outside Lvvtozxctclduk1251-10-27 16:43:00 Test Item Value Reference Range Interpretation Comments Materials Received p8brxPBzRNNrnWGgQcGuIW (test code = 9973) VhMDTfv2zpMEBkaKJeLwVu MzNcZnRuYmpcdWMxXGRlZm Qke9qbo136qMUiy8gcYBJo HvB6yTCpLEXznPChT159DV ZlPYfrb5hmk9VuABWyjPWn l7M6PLFQcixctAd5lAzjB2 1zb6B7ApkfB5hfHKSuBTWb S8IsAK5lYIBqKae0PKA9SV U5ZCNsMEQxP1TwVT4qLSNu tGFcLFm6z5fnoNlvCMJxSU A8p6ubZDbhjdKgRH6vqc1y yZy9w3rzdcExTWAtZVTswZ MBXRIxR2VgbFxbOq4afBc0 zWfgXeuzDAN5Spn3VH6jqe 58smh6zIczWMObexboPfC9 XIncANUqrfhgPOh9ZYfeCK JnbDcyMFxtYXJncjcyMFxt FLPtcLK1MXJwmJNeV5VeHN QkNOxdVSDboiy9MvBoUd8d rGRsdVtbIZuht2xmd8rgbO DeDqu1HOFlJqGrDeqzSYnl u4Ajo8fnYQPwxd0eWIR4jR WsbGvkm0Y3vXSbCONbuSDa kwTwDBDggq70iOQziPVeqN Nufr7nvaTxsCChrQJaQJN8 cHNocnRuXGZldDRcYWVuZG 0exPHtLZEazH9xprajLNIs YnJkcmhlYWRccGdicmRyZm 2qbCguKTS0MWslI1xyuF5r SmJ4RBjaA5biqY0fQHm0PV wacXG0LHGhpO7wPM1vtedj g1otZxOfST5gpwwpw1hkXn UcBD9isxw0b6jyWMQ4LCov PJUiYmX7qmK4QYHiuQAdHM MjmMxeMAcez821RLY7XjBq NJXhh2MeG4UhaTreH16fqY vqJ12lLGEfuIbaxH6ktKcs qK9uFjWxOyDgNQi9ww89SZ z1ajtqxIhdYIm8ikYxMHXa EVN2ZZHpmHJrDCQjR7f4tt VcSVTbPVC8HSXhlMSxWSVk W6a1gmSdYCT1UZm4nlIyNU RmdDNcdHJwYWRkYjBcdHJw YWRkZmIzXHRybGVmdDBcdG QxhE1xtXnrPQTctMUimO6c UFA5JQOcwwpaMvRmoGErHP YnxXIhux90FDYcgeCsxHHj iXefcVQuHUN2ZSAyJCMjEQ QaSZZ9YGFlBzHszdBeMOgp bGJyZHJiXGJyZHJzXGJyZH G2ONNnFkIkgbYmUAodjFMx JKQtEDWxQGQbYNTzDUE3BA BcYnJkcmNmMVxjbGJyZHJy DVMdWWLvVXJdFFX7FVCnJt JkcmNmMVxjbHBhZHQxMFxj mYPsOZM0L6blyOJeJVNpLS rpiIOdMCXuM0khxGFuNIyv XGNscGFkZmwzXGNscGFkYj BxC1xzYCGeKgJdL0BfkIw3 MDAwXGNsdmVydGFsdFxjbG RcXUI4IMPqWMChEWGpWEV2 MTBcYnJkcmNmMVxjbGJyZH QmQWQxYFElPYMnCFO9LMOq YnJkcmNmMVxjbGJyZHJsXG DrAEZiLXDaAVE4FRYvCiDa cmNmMVxjbGJyZHJyXGJyZH FvBLOmEOG8HIOxDdSspbHa MVxjbHBhZHQxMFxjbHBhZG E2Q2rlvUVwSRWtINioiYCq LLBcW4ngwRKqNCfpJBCkmY DhRqfpSFEqeYIwSjAqO5ra RNQqKxTyV3ZlmHc3VeKeKU NsdmVydGFsdFxjbGJyZHJ0 AJHuTTBiRKArTLS1TPOrSm JkcmNmMVxjbGJyZHJiXGJy DZAtZRFiRZF5XJYdAvIcim NmMVxjbGJyZHJsXGJyZHJz TDWxVAZ3FTCeZcAvpzBiAS xjbGJyZHJyXGJyZHJzXGJy ETO4PHCbPlKtbpIoEXevzB BdXMEySWlejPGfTQN2V4cz bHBhZHIxMFxjbHBhZGZyM1 xjbHBhZGwwXGNscGFkZmwz MSOggOLqLnOgB6gnSUArNa GrZ9VheBh7BeEoSEBmesWq iN97Fuoel6NrLNHmPUD7UX xzMFxxbFxwbGFpblxmMVxm czIwXGxhbmcxMDMzXGhpY2 mjCtAyUSYzoFgeLBkio0Ew XGYxXGNmMlxmczIwXGIgQW SaVWKwmQ2kSdmrL6EvlK5o TEwxHsicD0xoPELul1QujG 5lZFxwbGFpblxmMVxmczIw XUsmjqbcNTLeUSpxH4rcLx JyWLCelMdaNTsdm7TcGUGs QMTjKbznypRuWKu4kzDvOQ NlbGxccGFyZFxpbnRibFxz d4AptzAyiJmgUJZyWHm0vk MbwghtrQi5mSZzeIrzZFQd wMpbiD0eGbVcDeRwVLnusU FpblxmMVxmczIwXGxhbmcx YNGbPTvhX6pcXbUnMZSndU ooWDjqs8YfWJAnZUFmAnzz znEmKTGoM64urKSihHRkYM BsYWluXGYxXGZzMjBcbGFu ZzEwMzNcaGljaFxmMVxkYm WsJSVoWIssI2byVeDiV9Li XGZhXaZuuDXjZ8pfA5MzqV xwYXJkXGludGJsXHNzcGFy QJT2jZOrevMjdIIvpLNlKF NxIQmpZXC4uKQpnwqalFXh cyxaKRvsaqT6MCWtLAzmFV YxXGZzMjBcbGFuZzEwMzNc aGljaFxmMVxkYmNoXGYxXG bsD8suQqStU2JuBVOlQtDz YiBSZWNlaXZlZFxwbGFpbl xmMVxmczIwXGxhbmcxMDMz CEujE9wxPyRfGQGdcHbgMT cyy4AqHLWiWCSsPqbrefUz DAp0wqDmGTUkeBdsdX39Ii wjtv37BPGld2ntEIQjY1Ac aDEwXHRycGFkZGwxMDhcdH JwYWRkZmwzXHRycGFkZHIx MDhcdHJwYWRkZnIzXHRycG RiYTUoTKRnhVIgQZU0V1y5 abPdDDDcEZb2nlYiNYOuDh JezJEpNPB6VTl1ZixxsiG2 zYCcJ2u0PbaixaDhVUcuaO Lstd19EGHljrIxfJFgjHds wHDcLMH0AACpJKKbQUVqPK E4KOAnHuWnenHzTWoajMCz FUPaJGAwMLLyVXPeGEB4JV BcYnJkcmNmMVxjbGJyZHJs CXNfHGBdUYIrEMP7SBQgHx JkcmNmMVxjbGJyZHJyXGJy YTFfDKNwRNK1GAIyPgSflm NmMVxjbHBhZHQxMFxjbHBh LIE0D1djwCDyDQYhKQwbfD WtJRNhG3uhaMHnXWslHWQc cGFkZmwzXGNscGFkYjBcY2 tlEYMjZiZkJ1KtsBz6IPOf XGNsdmVydGFsdFxjbGJyZH O6ECRkYBCmJIUlVSV4TVIe YnJkcmNmMVxjbGJyZHJiXG ZuRVKgFCYlKIL5YYFjSeXh cmNmMVxjbGJyZHJsXGJyZH FnHFThTVV5MHEnVgMoifXt MVxjbGJyZHJyXGJyZHJzXG MwQGS9OSZpFaMbgfSvXBaz sGQxJJJhTQwkgEFlNPU9Z8 xjbHBhZHIxMFxjbHBhZGZy A7sdgQKaZZmdOIVxlVXgUh vySCXliVAsYzVvP7htFAKd PwSpY8YhmOa0XhZbDTRams MvkNPbyBuooAOpSAE4WAJm KNFnLFOmBGC8EBJmFcOlet NmMVxjbGJyZHJiXGJyZHJz UMJfSJK4GKLgBaOwavNkRQ xjbGJyZHJsXGJyZHJzXGJy XKN8LXStWtGijkHuWExdhM JyZHJyXGJyZHJzXGJyZHJ3 MTBcYnJkcmNmMVxjbHBhZH CqPHqfrFHvCPU5C2nhlEZc PPNzOAqmiTGnPLNhQ8halF BhZGwwXGNscGFkZmwzXGNs wBFyUjLqY4kdUYJqNiYhJ4 ZocEm1LmWvKXRbugEzsM47 Wzfwz5KaJUMvFJQ6DRwkIG xxbFxwbGFpblxmMFxmczI0 XHBsYWluXGYxXGZzMjBcbG FuZzEwMzNcaGljaFxmMVxk GuXzDJWxCDkrP8kgEhXoZ4 KcSSJsXvXuVA4lUeVfNBG2 NTkzLCAyIFNTLCAwIEJMT0 XWMkmvGRTFJ8HuwFJpIZUw QYAfWD8eRPO1JzwdADAZIo giPLZFNL6JY1ZxRDMgHCLP XHBsYWluXGYxXGZzMjBcbG FuZzEwMzNcaGljaFxmMVxk QpIjSWBoYCykM8mlFmHqD7 TfAZHsCvApkVRnE8zrV3Oy bFxwYXJkXGludGJsXHNzcG KrYGZ3jUKfbeDkcDqmdKzc wK8iXcGqJmLuXWqrtLXfpn xmMVxmczIwXGxhbmcxMDMz BSvwG7knVtRnTIWqeFcpSC mwg1MhJLXaADNxZypxwrHz IDEyLzIvMjAyMFxwYXIgMT MzJf0dFOPuXTNwNNafFJXg XGZzMjBcbGFuZzEwMzNcaG ljaFxmMVxkYmNoXGYxXGxv F5bhXjDaS2TuQKNkDyQwdQ UsL3ksA2DjhNvoRLWoPBvv kSVqCDOhmPHxDPL1uZXvuw RkaPtcrIbdoO4bBzTxHjNb NFxwbGFpblxmMVxmczIwXG pnezlgAJIrFTwtQ9kyHmPe HNVjoZqdZHxjm3UmEBYzXY NmMlxmczIwIDEyLzEwLzIw NoKvjFPwQDSzNjJ2FqIcKr KtlYnmbU7oTuNpYkHaYFwb RB3jADKfI4cbuNUuOZPkMF AvI5ivWmMyvG2aaOddBUpm ZjJcZnMyMFxsdHJjaFxjZW qoIQcxnHTxUXCux9yzTYBa PJNwiJCsJNO2xUIfvjHbaI qyiKlfbU9uOgXdLyFqHGwy bGFpblxmMVxmczIwXGxhbm mvEBWrAZvyO1lcBpUrRSHe wVlkCOtrd1DdPWXgIHFaIo BccGFyfQ== Diagnosis (test code = d3bezDXzQBQrtFX3JqEtSI 34) Iyi8aza0LykESuzYJjMMhz gWVlgoTvso89xXS4cE44IG 7mPCJcCwD7EIVksoU4Kvy6 SZQcPOUmkKPsU518b9nov4 lmmfDefSU4MKIrKQF7WFdy zjGtpmQoPnl7UTC2tCwtVO QdGPTsEYcaYZApDuBxL3K9 a4jsEHGzUlLdYVT7KNrfTK FkJNSRFJZnEIFPY1VKYlbk TDERQ6DrRZWooTrfC1QpKW QdoqGgNg1vZcVyCoBjUKTq WZQsA32itKNnFRLzNOZuRD RlciwgbGVmdCwgYmlvcHN5 ZT7dMQ6zd9FkRYVtAKxaVB wgQTEgTDEwLCAgQTEgTDEx KTpccGFyXHBhclxsaTcyMF dtnB03XvAvFLYEUJgZOVHJ QJZGO1XDEUcPFTvzJ4LOP5 eOO08ZXBVOYJjFBSfRHPBQ AHODHHJLZYXJW6RWQCMCEi BccGFyXGZpNzIwIExBTUlO LJGNNu2JSmaRCNbVNxXYID 2OEhElB0OANEDLDJ1TCdOy CCIwamtvoKLbN6FjUBIknk vbCaPvOGFuY9jjWNAeDXNj bnQuXHBhclx+XHBhclxwYX BnoPTmPVwtQYnrfY9dHZGT X6XGQGQciktfLAQ5 Administrative Services Officer(s) (test s8bpyQNaGYIsrHL6EoGgYK code = 9863) Bmm0zmo7MzuBCopRUmUFqs pYCfxfBvoz22fPQ4uA21QR 4fKADxNzT8AIBlxtG5Ijc6 DLLqXYPokYYtO333p4jnj2 npolAocVY2mPcoESLkWEPv ZOkhIVRvPvNdJ0UVXCZzzk 0= Disclaimer (test code = e6amsBZkBQFikZByIyGvQZ 9844) AvSDKay8caBCItzFHzTtJi MzNcZnRuYmpcdWMxXGRlZm Lkl8fnw068oVTox5dlLQMx CjQ8lRAxTTGtgXJoD376IU NxRUnbl4qxg6UcLJWxyAGh j8U1TSSRgsvhtWh5sMgaU3 9zm2M4GpneA5cwWCZlTBQr H4RuCI7kZPSuFms2HJL2QA R3IXRkRZLlT3JeAY5fRSIx mBEiPCn9c4wjtFcwFRNbNZ L0k1nzSKbqjkVwDL7spf6k wHk6p9qctvIcSIDrPCVeyB NWDJEdE1OpaTuqSh2vsGp2 yRspEvutRTE1Jkm4JH2uoz 58qrn3wLpcACYtglhjUsG7 JTudTBGbtolkYGu5JPhvVW CdpJU6FPJmfRZvA4FfDIIz GT3bycx6HBJ1TFxwHCXiSk H5UPLoyDIjGSGnkTraVTxe e174YVK3OxSiIN2oO2Omk2 I5wU5qpNAtLHDspVFmRdCl DNTszu5lcSXbGYuvg2VwHR H9pgM7wNCbbBIbHJOrXY23 Hplys4RaRvjkXBH3SHBbow Qtk2Fgr1cyKnKywwEhM9nt H4ShPOFaFSTjXKUnJgXljo Rxd0Uzs6YvwPBvkZl1r3mg SMFjDYMuzPkyz2zeDHI1QB IrI7A6xZZil1ifQWjnXVNp gWC7hqO0QSFqbQMjF4CgvS 2mKBPjFL7ujzj5u7kbKVG6 DXhmTUQeYsU2imK7WXChdZ HwIGIlpNosWJwoc052GJG8 QlZzNDDej4ZqG9JbcPwiA2 2yeBckC10mZZHynHkzqX2f mCeqeY6sZwNlRlYjTZjkrI szwFVlgbzoXPbegjD3NVqu ryiwJVIwHBfzM3iiEzLdSP OedXnsXLamf6YnQTCfCRQu AluvmlQ7TVTLm69rBHYzk2 BqDVQtqJ6glGOdAXllfyHa fWF2UBckqoKtAwFnolZbWR VxjY4yLIMoZY2iQTFhzmUh qn4hcnJxDJTyRPZfB0Knsd knhMsewvKtNPBscr8oqdSx ZGR8ZORCCZ0TAURtWGTbl5 4rXIIltYwgcG9kqQUdizFu EVUch3JfdV4xyBZIXLBeB5 saAP3dZAtlm6LsqQGdsINd uSP0FJBew8QqLfMuzoOsrB XeyELdZ1KpfZbjM3gdAFQu BDYbbcKgdHNes2VjYLFqbI P7gBUuAZ9HKlLIr27pRCVe YOOCnvJuSABrvLjpvRU6ow U6aC5rZhKESjVwaIAhcBVw LpzyABBuj219sr7lteJ9SP BkJENykbfcf4HvGWLqBXZm pQ89WJMcDOKawi7dwyaqhD YiucSxZ0Ynnhg3rM5qXWXh YWluXGYxXGZzMjJcbGFuZz EwMzNcaGljaFxmMVxkYmNo JNLbYYfhA6byVeHfAgQzZp xwYXJ9 IWONA (test code = IWONA) The previously reported component Comment is no longer being reported. MD Garcia [id number] 20:38:23 1. No hydronephrosis identified. A left sided likely nephroureteral stent/tube is present. 2. Simple bilateral renal cysts. 3. Approximately 1.4 x 1.9 x 1.5 cm hypoechoic lesion/mass in the left pelvis along the course of the left iliac vessels. This could represent an enlarged lymph node or other soft tissue mass. Findings can be best assessed with a CT.Interface, Radiology Results In - 11/15/20202:40 PM CSTExamination: US RENAL, 11/15/2020 2:07 PMClinical History: Cancer of left ureterDecreased urine outputIndication: Decreased Urine OutputComparison: None available.Technique: Grayscale and color Doppler ultrasound of the kidneys and bladder.Findings:Transverse and longitudinal images of thekidneys were obtained. The right kidney measures 11.3 cm and left kidney measures 11.3 cm in maximum size. There is no evidence of hydronephrosis, contour deforming masses or stones. In the left kidney, there is a 2.3 x 2.2 x 2.1 cm simple appearing cyst. In the right kidney, there are a total of 2 simple cysts with the larger measuring up to 2.4 x 2.4 x 1.8 cm. A catheter is identified within the left kidney with possible extension of the catheter into the ureter and possibly into the bladder. The findings should be correlated with the patient's procedural history.There is a 1.4 x 1.9 x 1.5 cm soft tissue mass/lesion identified in the left pelvis along the iliac vessels that could represent an enlarged lymph node or other soft tissue mass. Findings can be best assessed with a CT.The bladder is decompressed precluding evaluation.IMPRESSION:1. No hydronephrosis identified. A left sided likely nephroureteral stent/tube is present.2. Simple bilateral renal cysts.3. Approximately 1.4 x 1.9 x 1.5 cmhypoechoic lesion/mass in the left pelvis along the course of the left iliac vessels. This could repr esent an enlarged lymph node or other soft tissue mass. Findings can be best assessed with a CT.MD Daily Hepatitis C Virus Ab Screen, Reflex HCV PCR 2020-11-15 18:00:59 Test Item Value Reference Range Interpretation Comments HCV Ab Screen-[place] Negative Negative Signal-to -cutoff ratio is (test code = <1.00. Test Per formed 57068-8) by:[place] [id number] Director: Missael Nation M.D. Ph. D.; CLIA# [id number] MD DailyCA [id number] 22:32:25 Test Item Value Reference Range Interpretation Comments CA 19-9 (test code 21.6 U/mL See_Comment Results g reater than 9500 = 5171) U/mL may not be reliable due to matrix e ffect with extended diluti on as it exceeds the man ufacturer's recommended kilpatrick it. Caution should be exerc ised when interpreting soto ch values and done in con junction with clinical c ontext. Testing Perform ed at [facility], [address], [address], [place] [address] [Automated mess age] The system which ge nerated this result tra nsmitted reference range : <=35.0. The reference r nick was not used to int erpret this result as maya l/abnormal. MD DailyBHCG, Tumor [id number] 22:32:24 Test Item Value Reference Range Interpretation Comments Beta HCG, Tumor Marker <0.6 See_Comment Tumor Markers BHCG (test code = 9370) Reference Range:Negative: <1.0 mIU/mLNon- pre-menopausal women: </= 1.0 mIU/mLPost- menopausal women: </= 7.0 mIU/mLMen: < 2.0 mIU/mL Te sting Performed at [facility] Marketing Writer [facility], [address], [address], [place], [place] [address] [Automated mess age] The system which ge nerated this result tra nsmitted reference range : <=0.9 mIU/mL. The ref erence range was not u sed to interpret this result as normal/abnormal . MD DailyCancer antigen [id number] 22:32:23 Test Item Value Reference Range Interpretation Comments CA 125 (test code = 8.2 U/mL Results greater than 5169) 11,500.0 U/mL m ay not be reliable due to matrix effect with ext ended dilution as it exceeds the repair table operator's recommended limit. Caution should be exercised when interpreting soto ch values and done in con junction with clinical context.Referen ce intervals are n ot available for m karl patients. Resul ts should be interpreted in conjunction wit h clinical context. Testin g Performed at [facility] Amb[facility], [address], [place] [address] MD DailyCEA [id number] 22:25:33 Test Item Value Reference Range Interpretation Comments CEA (test code = 1.1 ng/mL See_Comment Reference R anges:Smoker 5203) 0.0 - 5.5 Te sting Performed at [facility] Writer [facility], [address], [place] [address] [Automated mess age] The system which ge nerated this result tra nsmitted reference range : <=3.8. The reference r nick was not used to int erpret this result as normal/abnormal . MD DailyHepatitis C Virus [id number] 22:08:07 Test Item Value Reference Range Interpretation Comments HCVAb Received (test See Note HCVAb w as sent to a code = 40815) reference lab for testing. Expec t results on Hepa titis C Virus Ab Screen w/Reflex HCV PC R within 96 hours. MD DailyGlucose, [id number] 22:00:39 Test Item Value Reference Range Interpretation Comments Glucose Random (test 105 mg/dL 70-199 Effecti ve 06/25/16, the code = 9360) glucose referen ce intervals have been updated based o n [place] [employer] [place] (Standards of M edical Care in Diabete s 2016. Diabetes Care 2 016; 39: S13-S22)Fasting blood glucose:Normal: 70 99 mg/dLImpair ed fasting glucose (increased risk for diabetes or pre-diabetes): 100 125 mg/dLDiabe martinez mellitus: >/= 1 26 mg/dLRandom blo od glucose:Normal: 70 199 mg/dLNote: Random glucose >100 mg /dL is associated with increased risk for diabetes Testin g Performed at [facility] Marketing Writer [facility], [address] [place] [address] B [address], [address], [place] [address] MD DailyUric [id number] 22:00:37 Test Item Value Reference Range Interpretation Comments Uric Acid (test 6.0 mg/dL 3.4-7 Testing Perf ormed at [facility] code = 7955) Lab Marketing Writer [facility], [address], [place] [address] MD DailyLactate [id number] 22:00:33 Test Item Value Reference Range Interpretation Comments LDH (test code = 204 U/L 135-225 Results gre ater than 1651 6111) U/L may not be reliable due to matrix effec t with extended diluti on as it exceeds the man ufacturer s recommended l imit. Caution should be exercised when interpreti ng such values and done in conjunction wit h clinical context. Testin g Performed at [facility] Lab Ambu latory [facility], [address], [facility] [address] MD DailyPartial Thromboplastin [id number] 21:55:27 Test Item Value Reference Range Interpretation Comments PTT (test code = 39.4 See_Comment H Testing Per formed 06733-5) [facility] Writer [id number] [address]ISJX License: [id number] [Automated message] The system which generated this result transmitted reference range : 24.2 - 36.0 second(s). The reference range was not used to interpret this result as normal/abnormal . IWONA (test code = IWONA) This lab cannot be scheduled at the following locations due to collection/procc essing restrictions: [facility] and [facility]. Lab Interpretation Abnormal (test code = 14743-2) MD DailyMD COVID-19 (AVIVA-CoV-2) PCR [id number] 12:19:48 Test Item Value Reference Interpretation Comments Range COVID19 SARS New Patient Indication (test code = 14161) COVID19 SARS Result Not Detected Not Detected (test code = 28743-6) COVID19 SARS SARS-CoV-2 NOT Detected. Interpretation (test Reference Range: Not code = 54452) Detected Methodology: The Corye RealTime SARS-CoV-2 assay is a qualitative real-time reverse business analytics specialist polymerase chain reaction (real estate loan processor-PCR) test to detect RNA from SARS-CoV-2 in nasal, nasopharyngeal and oropharyngeal swabs from patients with signs and symptoms of infection who are suspected of COVID-19 by their health care provider. The Corey RealTime SARS-CoV-2 performed on the icanbuy000 System is a dual target assay with primers and probes for the RdRp and N genes. Results must be interpreted within the context of all relevant clinical and laboratory findings, and epidemiological risk factors. Positive results are indicative of the presence of SARS-CoV-2 RNA; clinical correlation with patient history and other diagnostic information is necessary to determine patient infection status. Positive results do not rule out bacterial infection or co-infection with other viruses. Negative results do not preclude SARS-CoV-2 infection and should not be used as the sole basis for patient management decisions. The Corey RealTime SARS-CoV-2 assay is for in vitro diagnostic use under FDA Emergency Use Authorization only. Testing is limited to laboratories certified under the Clinical Laboratory Improvement Amendments of 1988 (CLIA), 42U.S.C. 263a, to perform high complexity tests. The Test was performed by the CLIA-certified, high-complexity Molecular Diagnostics Laboratory (MDL) at [facility] under the Food and Drug Administration (FDA) s Emergency Use Authorization. Factsheet for patients: https://www.mdanderson.org/ AbbottFactSheetPatientsFact sheet for healthcare providers: https://www.mdanderson.org/ AbbottFactSheetHCP Test performed by:[facility] Molecular Diagnostic [id number] [place] [address] MD Martin [id number] 17:16:00 Test Item Value Reference Range Interpretation Comments Case Report (test code Surgical Pathology = 104) Report Case: [id number] Authorizing Provider: Vinh Borden Collected: 10/31/2020 04:29 PM MD Laurie Ordering Location: [address] Received: 11/01/2020 08:40 AM Service Pathologist: Sang Willingham MD Specimen: Ureter, Left, left ureteral mass biopsy for molecular testing DIAGNOSIS (test code = a1kzpPVkRRJyw6yeKZQpoX 3220) FuZzEwMzNcZnRuYmpcdWMx IHtccnRmMVxlcGljOTIwMF zkssRzDSWdpNInN1Oedcbp WJiuMA9qJH5pwAfrrKDjeV SsHVLiLdZaw4wsl256kEUx i9btEKRWjaeqvFv0yLqnF4 1ft8K5RlroN24ivLWsILhs bGFpblxmczIwIFVSRVRFUi xeOBYUFOjzOpuHSZMNWK4Z SN9XH5B7RHCeamExVPWuQL BQQVBJTExBUlkgVVJPVEhF JJcXCDGZKKAABF5RQBNhQI gOO4rnY0VBHBMuPPdSHuWJ UkFERSAzKSwgXHBhciAgIC RiBUXjMJUsUGYNS2PBZKzt EE0CYFZVDqUxTX9TOhMMSR XDJZeDWiyJNLJSX5RPYZWu vGQvMPWzMD7pNmFEEDBFSy QeGk7DDSePRWORS7JXP6IA YSRTPDyDPeSIUK3FDVVbhn 51REO7OaEkp8X7QQH2LUKk ZXGgx3yeXEFptMVtRcXtRn NcZnRuYmpcdWMxXGRlZmYw q5pai133lWCnq5shFGCzTo B0jHZiQUVhjGSfJ388ZOXt AKufc8raq3UiKWTxsLQit8 W3ZYMTuiqguMe2oIdxO08i h7K2PvwvA5jqYBZmCFYtZ8 JjNS7iLYStYov6IBJ1ZRW5 DGEdKTKiW1KpBU4uUQSewS WdGGu4g7eakIegSVDiVGZ8 j9ujVMhrpgRpEK5iqn6fnW n0q4tdpmStMMNpZLDdlGOX MDDjY1QmnOapVo0niBd2gR cyEymfVUZ4Gsy9TY8eiq45 dzv0fAycMYPxvdloFpH8YU snKHChbejlMWz4TKxcITJg oJX0KWKshJBrY8AqHAFlSD 9hnfg3XNU0LDbnZDWlAzC3 NDBcaGVhZGVyeTcyMFxmb2 19SUZ9JwGxRJ9hQ4Obh4H3 nR0ryZMhKSDrbCWtJzZaEW Vgcp0alGSzWJguk7JwFDY5 jhR0eOAhxVPgFEXmVgG2SY aeUK4cje22OVPyTTN0dl0x bGNccGdicmRyaGVhZFxwZ2 RqNXAaj877TXOpU6YjOLBq e4U5ujTaXmDmFVEpgQS2sn S8NTTiIZ8qeblhs3vqSWgo JWanOSNmylH3ucJ7YNIfoX JiI3RfbO6fGXWmFZ5chsfv u5yoRFL9LOsaMXDpCJJ7Bj JnUHLum8Pvxsp8YnOpn0Lr aTGbDYosU57qi678DAFqnp ExO5rgrANkchtioPGnsimi NQisxsC1BNUiSEfncautDZ YoOFioE5ynDrTjLTNjpZuy PHvky4IiKQFoLYScAySdvK UeNROqXkh7IMCguTPgRRBf TwBzC4walfhfQaLDJSIkh3 rdC8bnnQAVnELyK5ZkRJje csFbKJucJIxmOZXdYVK3AO 4lRFGeVMZqru15 CPT Code(s) (test code e9ezlMWqSKKpyKA3IzOjYD = 3357) Dvs5ybd1OzsICkmWTgDZzq zHYeriAbhl70mTS0tA07EO 8jLHMdEkA5UOThvsX7Jsx9 EEBsETDkuEJmD855v4fck8 ijslHvqHG7hQjoIAFmBIOk YWluXGZzMjAgODgzMDVccG FyfQ== CLINICAL HISTORY (test v5hxxHHxOJZbgVV4FfZpJO code = 3356) Cyw1vgv3MmsEOxsBKkBGye nDWrmhCxrd40yCE9bT20MX 3aEZImWbJ5XXRoouQ0Bue2 XKXoEFDvkBIvC414z8sha6 uoeyBppJK8KKFuLRE4GSry vjCgwkI0XQoapIQqHwT6G0 1ccGFyZFxwbGFpblxmczIw LYKzY1LnJKPpOJivGzTqsW BdbSLkOPlddWBwbwKwsI6m a6nfPk9fCV4mvRHdrSgcqy Y5DHL5qX9mNQXkyk8= SPECIMEN SOURCE (test m3tvfKVaYKJyjEK3EoIyAV code = 3377) Yok9nra0XqmJVwtDPfHFxw yJKjrfDewj51uSS4bT22GG 6jRLUwOgA5IOJkuvX7Yjj0 RCDgBAIviZDuI218p3aiw7 ebdzKmoIL2qQhwSWDmESKx YWluXGZzMjAgVXJldGVyLC DrFQF4NZZqrm0= GROSS DESCRIPTION (test i1gixDXmCQRhvEGkCbFnDZ code = 3366) PiVNHfa1afMDZuqYCgHtUp MzNcZnRuYmpcdWMxXGRlZm Tnu7jln472aAVqf5lwWNDl LrT7hNMjTFYykMFsW350f9 zlc9alolQmaMZ1UIDnYNR1 JBxudsYinqY7VDjvfLPhEd U4VPomldAlIJiukzYzykYm Nmg5WAAkF370JPU7kTmmz1 hkNMT3LFSfQSDkKzVbMs5k qHBvB018BIWgDNIVLGMohY s3NARbtbSsrnTbfBJSf714 G050w3rkUUOjxqJkxBtFjz lsq6tmZ146UOEfpJQyaaQo NqPeDZVraMCnpFW7OBMtDF 6jcenmFdLjPH7jcoaiSbPq YO3gpyn1KzGcFK2zlwygTt CaUBgdBABlguopSABso0Bn ijsuEU6mU7Kyy9B1bN1swE DtALDtqCPfGtUlJMMmms4x hKAfHBmuh1UxOMK1frO9mX DaqPOlORHqPN62Frufw7Bj LjymRPG7MCNrgaMly7Lew7 flByFbheOtJ9duV2GgMOAw ECBuVPXeFlCuuoWzp4Zxy3 QksZCxoZx3o8ufGYFhBDAp bLitv0rzQIA7SVXgY2X0aA Fwo4tvVFzrSCMrhUN6yhjd FUzyDLEmzpK9pjnsTYblJH OvwTI4xldyXBcyOLEsZeA0 cedfMLznALXoELB5CTkfl6 18OUZ5NOfsFagzVHvzDJNy bmNvbnRccGduZGVjXHBsYW luXHBsYWluXGYwXGZzMjRc gQpcaXuxvZ7uAeDvIoKoXR zxJY1jGKRtK4ndnNIhRAPq SJJxR4xcEgWcoR5vnUfcZU nqsbPrLRQeT9VwvjKeUZnq WVEghx2neQjxJFbuSfShQF QgdGhlIHBhdGllbnQncyBu XU9pNFEnH7Kkx9Cmh38jtb VtYmVyIGFuZCAibGVmdCB1 weM9XUWhWZEdDDQggHc7mW AzOFJ6UH7cRLGcajCoOCfd t3Aiw45uyFJ8qGMdzNYqQw RdO87oudKuMJ0sXYI8ldxg FlV3dNW0xrIpRtPrD18skH 2aY4DqPWKam1ZlgWKjG7Ek EDP2JIImRRFjnSJtocRowX QnLIPsmwP9aTipoKAgxbEl QncewABtCIYoOS0rGRB0Ut 8chDYpFROzgpI4t0YaFJvx IEExLlxwYXJccGFyIFBpbG XkZSOtO6EygFvyryayABBk TCrKOScMV5FLIMvaDXE9 MICROSCOPIC DESCRIPTION r4rfeGYhVEUbtHE2WmMiDO (test code = 3371) Aan6ngj1JirLUqsANlWAnv dSRwzkRmfi69sAR6dM40VO 6nZMNoWcD4VIBispJ3Yzs2 DIEaLXBslAZwI185q9ouo5 ecziIwgIC6yVdyASYzXOIs ANtrBLGnYvKcOTHuPu0hkT VkLlxwYXJ9 [facility] CenterTISSUE [id number] 17:16:00Surgical Pathology Report Case: [id number] Authorizing Provider: Vinh Borden Collected: 10/31/2020 04:29 PM MD Laurie OrderingLocation: [address] Received: 11/01/2020 08:40 AM Service Pathologist: Sang Willingham MD Specimen: Ureter,Left, left ureteral mass biopsy for molecular testing URETER, LEFT, BIOPSY OFMASS: - PAPILLARY UROTHELIAL CARCINOMA, HIGH GRADE (WHO GRADE 3), FOCALLY INVASIVE INTO MUSCULARIS PROPRIA - NEGATIVE FOR LYMPH/VASCULAR INVASION Signing Pathologist Direct Phone Line: [phone] signed by Sang Willingham MD on 11/01/2020 at 5:16 [id number] ureteral mass biopsy for molecular testingUreter, leftReceived in formalin labeled the patient's name, accession number and "left ureter" are multiple brito, threadlike soft tissue fragments measuring up to 0.5 cm in greatest length by 0.1 cm in diameter which are filtered and submitted in toto in A1.KAMRYN Edwards, HT (ASCP)Performed.2D Echo W/Doppler(CW/PW/Color)2020-11-01 11:43:14Ejection FractionSLEH ECHO HEARTLAB MKCKESSON CPACSInterface, External Ris In - 11/01/2020 11:43 AM CSTTransthoracic Echocardiography Report (TTE) Demographics Patient Name GEN WHELAN Date of Study 11/01/2020 KATHY Gender Male Visit Number [id number] Race Room Number 1619 Number Date of 1935 Referring Physician Vinh Borden Age 84 year(s) 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 Machine 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 Nusrat Montemayor [facility] Interpreting Physician DOV Barrera Procedure Type of Study TTE procedure:2DECHO W DOPPLER(CW/PW/COLOR) (Pending Discharge) Indications:Atrial fibrillation.Clinical HistoryHGB 13.8HCT 41.0 %A-FIB, CVA, HTN, BPH S/P TURP, RECENT DX BLADDER CAHeight: 74 inches Weight: 102.06 kg (225 lbs) BSA: 2.28 m^2 BMI: 28.89kg/m^2HR: 59 bpm BP: 124/60 mmHg Summary TECHNICALLY [...] TR Velocity: 1.87 m/s TR Gradient: 14.02 mmHgVA [facility] Healthcare CenterCT, CHEST, WITH [id number] 22:14:00Unlisted Reason for Exam - Click Yes and Enter Reason Below->YesUnlisted Reason for Exam->Urothelial cancer [facility] : 1935 Sex: MFINAL REPORT TECHNIQUE: CT of the chest WITH intravenous contrast. Dose modulation, iterative reconstruction, and/or weight-based adjustment of the mA/kV was utilized to reduce the radiation dose to as low as reasonably achievable. INDICATION: 84-year-old man with urothelial cancer. COMPARISON: None. FINDINGS: LINES/TUBES: None. LUNGS AND AIRWAYS: Central airwaysare patent. 3 mm noncalcified nodule in the right lower lobe (axial lung window series images 36). 5mm groundglass nodule in the right lower lobe (axial lung window series image 39). 3-4 mm noncalcified nodules in the left lower lobe (axial lung window series images 31, 39, and 50). Subcentimeter calcified granuloma in the right middle lobe along the right minor fissure. Mild subpleural reticulonodular opacities scattered in both lungs. Linear subsegmental atelectasis in both lung bases. PLEURA: Pleural spaces are clear. HEART AND MEDIASTINUM: Visualized thyroid gland is normal. Mildly prominent 1.1 cm right lower paratracheal lymph node. Heart and pericardium are within normal limits. Atherosclerotic coronary artery calcifications. BONES AND SOFT TISSUES: Degenerative changes of the visualizedspine. Soft tissues are unremarkable. UPPER ABDOMEN: Unchanged scattered hepatic cysts measure up to1.7 x 2 cm. Unchanged debris-containing right renal cyst measures 2.4 x 2.7 cm. Unchanged simple right renal cyst measures 1.6 x 2 cm. Unchanged simple left renal cyst measures 2.2 x 2.6 cm. Partially visualized left nephroureteral stent. IMPRESSION:No definite thoracic metastases. Indeterminate findings include: *Few 3-5 mm pulmonary nodules*Mildly prominent right mediastinal lymph node Signed: Makenzie Gonzalez MDReport Verified Date/Time: 10/31/2020 22:14:06 Reading Location: [address] Consult[address] Room CT chest with IV [id number] 22:14:00Interface, External Ris In - 10/31/2020 10:16 PM CSTFINAL REPORT TECHNIQUE: CT of the chest WITH intravenous contrast. Dose modulation, iterative reconstruction, and/or weight-based adjustment of the mA/kV was utilized to reduce the radiation dose to as low as reasonably achievab le. INDICATION: 84-year-old man with urothelial cancer. COMPARISON: None. FINDINGS: LINES/TUBES: None. LUNGS AND AIRWAYS: Central airways are patent. 3 mm noncalcified nodule in the right lower lobe (axial lung window series images 36). 5 mm groundglass nodule in the right lower lobe (axial lung window series image 39). 3-4 mm noncalcified nodules in the left lower lobe (axial lung window series images 31, 39, and 50). Subcentimeter calcified granuloma in the right middle lobe along the right minor fissure. Mild subpleural reticulonodular opacities scattered in both lungs. Linear subsegmental atelectasis in both lung bases. PLEURA: Pleural spaces are clear. HEART AND MEDIASTINUM: Visualized thyro id gland is normal. Mildly prominent 1.1 cm right lower paratracheal lymph node. Heart and pericardium are within normal limits. Atherosclerotic coronary artery calcifications. BONES AND SOFT TISSUES:Degenerative changes of the visualized spine. Soft tissues are unremarkable. UPPER ABDOMEN: Unchanged scattered hepatic cysts measure up to 1.7 x 2 cm. Unchanged debris-containing right renal cyst measures 2.4 x 2.7 cm. Unchanged simple right renal cyst measures 1.6 x 2 cm. Unchanged simple left renalcyst measures 2.2 x 2.6 cm. Partially visualized left nephroureteral stent. IMPRESSION:No definite thoracic metastases. Indeterminate findings include: *Few 3-5 mm pulmonary nodules*Mildly prominent right mediastinal lymph node Signed: Makenzie Gonzalez MDReport Verified Date/Time: 10/31/2020 22:14:06Reading Location: [address] Consult Reading [facility], [id number] 19:04:00Reason for exam:- >biopsy of L ureteral mass for molecular testing. can tumor be accessed through NU[facility] : 1935 Sex: MFINAL REPORT CT, BIOPSY, KIDNEY HISTORY: biopsy of L ureteral mass for molecular testing. CONSENT: The risks, benefits, and alternatives to the procedure were discussed with the patient. The patient expressed understanding and informed written consent was obtained. TIME OUT: A pre-procedure time out was performed in order to confirm the appropriate site of the procedure. CONSCIOUS SEDATION: Moderate sedation was administered. 0.5 mg of midazolam and 25 mcg of fentanyl IV was used for moderate sedation, monitored under my direction. Total interservice time of sedation was 30 minutes. The patient's vital signs were monitored throughout the procedure and recorded in the patient's medical record by the nurse. LOCAL ANESTHESIA: 10 cc 2% lidocaine TECHNIQUE: This exam was performed according to our departmental dose optimization program which includes automated exposure control, adjustment of the mA and/or kV according to patient's size and/or use of iterative rec onstructive technique. The patient's CT is reviewed, and the abnormality is localized in the distal left ureter. With the patient supine, the area is scanned, without intravenous contrast administration. After the skin over the area is marked, the skin is prepped and draped in the usual sterile manner. After local anesthesia is achieved, a 19 gauge needle is advanced to the abnormality under CT guidance. Five 20 gauge core needle biopsies were obtained. Postprocedure CT evaluation of the area reveals trace layering blood products posterior to the ureteral mass, no loculated fluid collection. Patient disposition: Stable to post-procedure area for recovery IMPRESSION: Successful CT-guided percutaneous core needle left ureteral mass core biopsy. Trace layering blood products posterior to the ureteral mass post-procedurally, no significant hematoma. Signed: Naif Gutiérrez MDReport Verified Date/Time: 10/31/2020 19:04:51 Reading Location: [facility] B1 C013Y CT Body Reading Room CT biopsy kidney 2020-10-31 19:04:00Interface, External Ris In - 10/31/2020 7:[address], BIOPSY, KIDNEY HISTORY: biopsy of L ureteral mass for molecular testing. CONSENT: The risks, benefits, and alternatives to the procedure were discussed with the patient. The patient expressed understanding and informed written consent was obtained. TIME OUT: A pre- procedure time out was performed in order to confirm the appropriate site of the procedure. CONSCIOUS SEDATION: Moderate sedation was administered. 0.5 mg of midazolam and 25 mcg of fentanyl IV was used for moderate sedation, monitored under my direction. Total interservice time of sedation was 30 minutes. The patient's vital signs were monitoredthroughout the procedure and recorded in the patient's medical record by the nurse. LOCAL ANESTHESIA: 10 cc 2% lidocaine TECHNIQUE: This exam was performed according to our departmental dose optimizati on program which includes automated exposure control, adjustment of the mA and/or kV according to patient's size and/or use of iterative reconstructive technique. The patient's CT is reviewed, and the abnormality is localized in the distal left ureter. With the patient supine, the area is scanned, without intravenous contrast administration. After the skin over the area is marked, the skin is prepped and draped in the usual sterile manner. After local anesthesia is achieved, a 19 gauge needle is advanced to the abnormality under CT guidance. Five 20 gauge core needle biopsies were obtained. Postprocedure CT evaluation of the area reveals trace layering blood products posterior to the ureteral ma ss, no loculated fluid collection. Patient disposition: Stable to post-procedure area for recovery IMPRESSION: Successful CT-guided percutaneous core needle left ureteral mass core biopsy. Trace layering blood products posterior to the ureteral mass post-procedurally, no significant hematoma. Signed: Naif Gutiérrez Verified Date/Time: 10/31/2020 19:04:51 Reading Location: [facility] B1 C013Y CT Body Reading Room [facility] CenterBasi Metabolic [id number] 05:10:00 Test Item Value Reference Range Interpretation Comments Sodium (test code = 139 meq/L 192-527 4376-2) Potassium (test code = 3.9 meq/L 3.5-5.1 2823-3) Chloride (test code = 108 meq/L 98-107 H 5-0) CO2 (test code = 21 meq/L 22-29 L 8-9) BUN (test code = 25 mg/dL 7-21 H 3094-0) Creatinine (test code 1.36 mg/dL 0.57-1.25 H = 2160-0) Glucose (test code = 83 mg/dL 70-105 2345-7) Calcium (test code = 8.6 mg/dL 8.4-10.2 72271-1) EGFR (test code = 50 mL/min/1.73 [place] [address]-7) NOT ACCURATE CREATININE CLEARANCE IN PREDICTING GLOMERULAR FILTRATION RATE . ESTIMATED GFR I S NOT APPLICABLE FOR DIALYSIS PATIENTS. IWONA (test code = IWONA) Proof Carrier ID - EDASI Lab Interpretation Abnormal (test code = 79094-2) [facility] Center[facility]esium2020-12-02 05:10:00 Test Item Value Reference Range Interpretation Comments Magnesium (test code = 2.0 mg/dL 1.6-2.6 77298-0) IWONA (test code = IWONA) Proof Carrier ID - EDASI Lab Interpretation (test Normal code = 89095-0) [facility] CenterPhosphorus2020-12-02 05:10:00 Test Item Value Reference Range Interpretation Comments Phosphorus (test code = 2.4 mg/dL 2.3-4.7 2777-1) IWONA (test code = IWONA) Proof Carrier ID - EDASI Lab Interpretation (test Normal code = 92713-2) [facility] CenterBASIC METABOLIC [id number] 05:10:00 Test Item Value Reference Range Interpretation Comments SODIUM (BEAKER) 139 meq/L 136-145 (test code = 381) POTASSIUM (BEAKER) 3.9 meq/L 3.5-5.1 (test code = 379) CHLORIDE (BEAKER) 108 meq/L 98-107 H (test code = 382) CO2 (BEAKER) (test 21 meq/L 22-29 L code = 355) BLOOD UREA NITROGEN 25 mg/dL 7-21 H (BEAKER) (test code = 354) CREATININE (BEAKER) 1.36 mg/dL 0.57-1.25 H (test code = 358) GLUCOSE RANDOM 83 mg/dL 70-105 (BEAKER) (test code = 652) CALCIUM (BEAKER) 8.6 mg/dL 8.4-10.2 (test code = 697) EGFR (BEAKER) (test 50 mL/min/1.73 ESTIMA SRINATH GFR IS code = 1092) sq m NOT ACCURATE CREATININE CLEARANCE IN PREDICTING GLOMERULAR FILTRATION RATE . ESTIMATED GFR I S NOT APPLICABLE FOR DIALYSIS PATIEN TS. Proof Carrier ID - [id number] 05:10:00 Test Item Value Reference Range Interpretation Comments MAGNESIUM (BEAKER) (test code = 2.0 mg/dL 1.6-2.6 627) Proof Carrier ID - [id number] 05:10:00 Test Item Value Reference Range Interpretation Comments PHOSPHORUS (BEAKER) (test code = 2.4 mg/dL 2.3-4.7 604) Proof Carrier ID - EDASICBC (Hemogram only)2020-10-31 04:57:00 Test Item Value Reference Range Interpretation Comments WBC (test code = 6690-2) 7.6 See_Comment [A utomated message] The system Team [employer] generated this result transmitted ref erence range: 3.5 - 10 .5 K/L. The refe rence range was not u sed to interpret this result as normal/abnor mal. RBC (test code = 789-8) 4.57 See_Comment L [Au tomated message] The system Team [employer] generated this result transmitted ref erence range: 4.63 - 6 .08 M/L. The refe rence range was not u sed to interpret this result as normal/abnor mal. MCHC (test code = 786-4) 33.7 See_Comment [A utomated message] The system Team [employer] generated this result transmitted ref erence range: 32.3 - 3 6.5 GM/DL. The refe rence range was not u sed to interpret this result as normal/abnor mal. Hematocrit (test code = 41.0 % 40.1-51 4544-3) MCV (test code = 787-2) 89.7 fL 79-92.2 MCH (test code = 785-6) 30.2 pg 25.7-32.2 RDW (test code = 788-0) 13.8 % 11.6-14.4 Platelets (test code = 97 See_Comment L [Aut omated message] 777-3) The system Team [employer] generated this result transmitted ref erence range: 150 - 45 0 K/CU MM. The referen ce range was not u sed to interpret this result as normal/abnor mal. MPV (test code = 11.9 fL 9.4-12.4 99980-3) nRBC (test code = 413) 0 See_Comment [Aut omated message] The system Team [employer] generated this result transmitted ref erence range: 0 - 0 /1 00 WBC. The refere nce range was not u sed to interpret this result as normal/abnor mal. Lab Interpretation (test Abnormal code = 29722-4) [facility] (HEMOGRAM ONLY)2020-10-31 04:57:00 Test Item Value Reference Range Interpretation Comments WHITE BLOOD CELL COUNT (BEAKER) 7.6 K/ L 3.5-10.5 (test code = 775) RED BLOOD CELL COUNT (BEAKER) 4.57 M/ L 4.63-6.08 L (test code = 761) HEMOGLOBIN (BEAKER) (test code = 13.8 GM/DL 13.7-17.5 410) HEMATOCRIT (BEAKER) (test code = 41.0 % 40.1-51.0 411) MEAN CORPUSCULAR VOLUME (BEAKER) 89.7 fL 79.0-92.2 (test code = 753) MEAN CORPUSCULAR HEMOGLOBIN 30.2 pg 25.7-32.2 (BEAKER) (test code = 751) MEAN CORPUSCULAR HEMOGLOBIN CONC 33.7 GM/DL 32.3-36.5 (BEAKER) (test code = 752) RED CELL DISTRIBUTION WIDTH 13.8 % 11.6-14.4 (BEAKER) (test code = 412) PLATELET COUNT (BEAKER) (test code 97 K/CU MM 150-450 L = 756) MEAN PLATELET VOLUME (BEAKER) 11.9 fL 9.4-12.4 (test code = 754) NUCLEATED RED BLOOD CELLS (BEAKER) 0 /100 WBC 0-0 (test code = 413) Vitamin [id number] 05:54:00 Test Item Value Reference Range Interpretation Comments Vitamin B12 (test code = 279 pg/mL 161-824 9927-9) IWONA (test code = IWONA) Proof Carrier ID - EDASI Lab Interpretation (test Normal code = 91791-1) [facility] CenterVITAMIN [id number] 05:54:00 Test Item Value Reference Range Interpretation Comments VITAMIN B12 (BEAKER) (test code = 279 pg/mL 213-816 774) Proof Carrier ID - EDASIPeripheral Blood Smear - Hold [id number] 05:31:00 Test Item Value Reference Range Interpretation Comments Peripheral Smear Save (test 2 smear saved code = 1815) [facility] CenterPERIPHERAL BLOOD SMEAR - HOLD [id number] 05:31:00 Test Item Value Reference Range Interpretation Comments PERIPHERAL SMEAR SAVE (BEAKER) 2 smear saved (test code = 1815) BASIC METABOLIC [id number] 05:29:00 Test Item Value Reference Range Interpretation Comments SODIUM (BEAKER) 140 meq/L 136-145 (test code = 381) POTASSIUM (BEAKER) 3.8 meq/L 3.5-5.1 (test code = 379) CHLORIDE (BEAKER) 106 meq/L 98-107 (test code = 382) CO2 (BEAKER) (test 25 meq/L 22-29 code = 355) BLOOD UREA NITROGEN 18 mg/dL 7-21 (BEAKER) (test code = 354) CREATININE (BEAKER) 1.37 mg/dL 0.57-1.25 H (test code = 358) GLUCOSE RANDOM 88 mg/dL 70-105 (BEAKER) (test code = 652) CALCIUM (BEAKER) 8.9 mg/dL 8.4-10.2 (test code = 697) EGFR (BEAKER) (test 50 mL/min/1.73 ESTIMA SRINATH GFR IS code = 1092) sq m NOT ACCURATE CREATININE CLEARANCE IN PREDICTING GLOMERULAR FILTRATION RATE . ESTIMATED GFR I S NOT APPLICABLE FOR DIALYSIS PATIEN TS. Proof Carrier ID - [id number] 05:29:00 Test Item Value Reference Range Interpretation Comments MAGNESIUM (BEAKER) (test code = 2.0 mg/dL 1.6-2.6 627) Proof Carrier ID - [id number] 05:29:00 Test Item Value Reference Range Interpretation Comments PHOSPHORUS (BEAKER) (test code = 2.0 mg/dL 2.3-4.7 L 604) Proof Carrier ID - [id number]-[id number] 05:09:00 Test Item Value Reference Range Interpretation Comments D-Dimer, Quant (test 1.73 See_Comment H [Autom ated code = 50541-7) message] The system which generated this result transmitted reference range : <0.50 MG/L FEU. The reference range was not used to interpr et this result as normal/abnormal . IWONA (test code = IWONA) Intended Use: The D-Dimer Assay can be used to aid in the diagnosis of Deep Vein Thrombosis (DVT) and Pulmonary Embolism Disease (PED).In patients with low pre-test probability, various studies concerning STA Liatest D-dimer test have reported that with a cutoff value of 0.50 MG/L FEU, the Negative Predictive Value (NPV) regarding the exclusion of thrombosis is within 95-100% range. Lab Interpretation Abnormal (test code = 49071-5) [facility] CenterD-[id number] 05:09:00 Test Item Value Reference Range Interpretation Comments D-DIMER QUANTITATIVE (BEAKER) 1.73 MG/L FEU <0.50 H (test code = 671) Intended Use: The D-Dimer Assay can be used to aid in the diagnosis of Deep Vein Thrombosis (DVT) and Pulmonary Embolism Disease (PED).In patients with low pre- test probability, various studies concerning STA Liatest D-dimer test have reported that with a cutoff value of 0.50 MG/L FEU, the Negative Predictive Value (NPV) regarding the exclusion of thrombosis is within 95-100% range. [id number] 05:07:00 Test Item Value Reference Range Interpretation Comments Fibrinogen (test code = 3255-7) 435 mg/dl 225-434 H Lab Interpretation (test code = Abnormal 02437-7) [facility] CenterPT/[id number] 05:07:00 Test Item Value Reference Interpretation Comments Range Protime (test code = 14.5 See_Comment H [Autom ated 5902-2) message] The system which generated this result transmitted reference range : 11.9 - 14.2 seconds. The reference range was not used to interpret this result as normal/abnormal . INR (test code = 1.17 See_Comment [Automated 0501-6) message] The system which generated this result transmitted reference range : <=5.90. The reference range was not used to interpret this result as normal/abnormal . PTT (test code = 33.7 See_Comment [Automated 05809-5) message] The system which generated this result transmitted reference range : 22.5 - 36.0 seconds. The reference range was not used to interpret this result as normal/abnormal . IWONA (test code = Effective 04/27/2019: IWONA) PT Reference Range ChangeNew: 11.9-14.2 Previous: 11.7-14.7 RECOMMENDED COUMADIN/WARFARIN INR THERAPY RANGESSTANDARD DOSE: 2.0-3.0 Includes: PROPHYLAXIS for venous thrombosis, systemic embolization; TREATMENT for venous thrombosis and/or pulmonary embolus.HIGH RISK: Target INR is 2.5-3.5 for patients wiht mechanical heart valves. Lab Interpretation Abnormal (test code = 64609-9) [facility] CenterFIBRINOGEN2020-12-01 05:07:00 Test Item Value Reference Range Interpretation Comments FIBRINOGEN LEVEL (BEAKER) (test 435 mg/dl 225-434 H code = 658) [id number] 05:07:00 Test Item Value Reference Range Interpretation Comments PROTIME (BEAKER) (test code = 14.5 seconds 11.9-14.2 H 759) INR (BEAKER) (test code = 370) 1.17 <=5.90 PARTIAL THROMBOPLASTIN TIME 33.7 seconds 22.5-36.0 (BEAKER) (test code = 760) Effective 04/27/2019: PT Reference Range ChangeNew: 11.9-14.2 Previous: 11.7- 14.7RECOMMENDED COUMADIN/WARFARIN INR THERAPY RANGESSTANDARD DOSE: 2.0-3.0 Includes: PROPHYLAXIS for venous thrombosis, systemic embolization; TREATMENT for venous thrombosis and/or pulmonary embolus.HIGH RISK: Target INR is2.5-3.5 for patients wiht mechanical heart valves.CBC (HEMOGRAM ONLY)2020-10-30 04:59:00 Test Item Value Reference Range Interpretation Comments WHITE BLOOD CELL COUNT (BEAKER) 7.7 K/ L 3.5-10.5 (test code = 775) RED BLOOD CELL COUNT (BEAKER) 4.81 M/ L 4.63-6.08 (test code = 761) HEMOGLOBIN (BEAKER) (test code = 14.5 GM/DL 13.7-17.5 410) HEMATOCRIT (BEAKER) (test code = 43.6 % 40.1-51.0 411) MEAN CORPUSCULAR VOLUME (BEAKER) 90.6 fL 79.0-92.2 (test code = 753) MEAN CORPUSCULAR HEMOGLOBIN 30.1 pg 25.7-32.2 (BEAKER) (test code = 751) MEAN CORPUSCULAR HEMOGLOBIN CONC 33.3 GM/DL 32.3-36.5 (BEAKER) (test code = 752) RED CELL DISTRIBUTION WIDTH 14.0 % 11.6-14.4 (BEAKER) (test code = 412) PLATELET COUNT (BEAKER) (test code 93 K/CU MM 150-450 L = 756) MEAN PLATELET VOLUME (BEAKER) 11.3 fL 9.4-12.4 (test code = 754) NUCLEATED RED BLOOD CELLS (BEAKER) 0 /100 WBC 0-0 (test code = 413) [id number] 14:22:00 Test Item Value Reference Range Interpretation Comments Case Report (test code Medical Cytology = 104) Report Case: [id number] Authorizing Provider: Asuncion Perdomo MD Collected: 10/29/2020 10:10 AM Ordering Location: [address] Received: 10/29/2020 12:05 PM Service Pathologist: Suman Taylor MD Specimen: Nephrostomy, Left DIAGNOSIS (test code = i4skdPSlKBUnj0wsOITaiF 3220) FuZzEwMzNcZnRuYmpcdWMx IHtccnRmMVxlcGljOTIwMF hoofDgORSsnTCpH9Hymtnr FSbhSR0fOG6cxPbmoZRqgK OzAQOxQhRow3miy344wWDe g2liBHPFprlpcMq7gZauO6 8dg1M2YdakF83qsKSpTRcp hGSpqtubyaToIL4XYUtIZ6 GEJ71TDUWDGVWFBZPSGchD YSAFQGNRNHEdC0aCY3AHMK 2BNNcawKDoPFKnAL8hJbOL Eq7RHXTuB0lRQOLPZEmBUY pOTcTGIEcPSfTKWWUJS18v IEZFVyBBVFlQSUNBTCBDRU uZJlfmW6AJPIeVHL1YFmZY R0WnXGnSLDJBAwGBYNAQBj 2RNDWUJBLBSXLLRnQPFq1E ETasPRB1z8fngLBwUGDlmZ UxODAwMFxhbnNpXGRlZmxh aoniOJEeSMP5urVgOMTpAY nxSUDnNXacLo2syJHsoCjj XuYbLQSku8bfguEPeunodH l7x1hmNQPkZzI9eRRjRPqk W9qtopBppNWwGRVvTEf6pB 44LGFseL1ivFOtYGmizrQi PgW2PIfjDKDoYjQ9SDGtnB LiBYHxD9xuLHGcOYubVOVc NCmxiYSpFHH0fDogd0Q8nJ VzaGVldHtcZjBcZnMyMiBO l7SuZWm9cYqhZ5AdNQZtTk S7dZOgZKWcUGmhMUVrZJRz cqW4uK96EJwlvmZ0aKHxp6 Ppy79ig341tZ1kyQGuNRR6 MPVfSZGmqISeYUYpRNW6NG WjaWOaB9haPIMbFH5cchie SAncBUopNESsfGB7TTKwcR PnP8ExFARoGVcxEMUbtqm6 SnWiFv9xkNVadVugSYhwk6 apm5clhBExAer3AQSkPlQa YceaAUxzq8Bow3hgYXZlfw 8bORT7pYYfwOoao2W5wKMo IWJhkEQgYIVvFD3qsRDyGQ EtqL8ffejrECFqJaSsllyj LRRhiZvujvZlYu3psQacAJ N7QTumR3ymzN5fDdT2KExm F9yumN1wFKe2UEqzZCItvH O2knD8OKTszUJzL5FysE1a CXIkUX9tsyl9y5jtYQI4XT dyNFYkHnM5xnQ6VDGjgRSn TFNtmUexVHyzq140VRL9Ng AfSNPdm8JoY2KixAigI30g zRcrB54dDWMggGyxoF5sdD ymlJ6jZlSlCwWkKGnocMgs VZ0rJFBoB1clbXAlLIYbEY UhP0wuBtNebK1rsIcyAQdy arUuLEQvDwo5RVHpvGXqQI ZyTzt3WHEpUXInK97pfctx YPW2zW6ae3dqr2PkXMsmCN Z4RXVvn83hHUbsnhZ6FUne Rd4gUcBvNDR1BUwjAMR0zO == CPT Code(s) (test code d9ddcVMhCVOkxZK0BfQuDS = 3357) Lxf6hsc2XrnHLppWUdVCbg nHGfgdZgmz64iXJ1wU27LE 2hVRPrPnZ6ZEQvrsO3Xsi7 JEQmKFRpuAShU898j8jnu0 gsvqRzvEB9jQlkDMQbABEp YWluXGZzMjAgODgxMDhccG FyfQ== CLINICAL DATA (test e2zjaXMvTOFamST0TiAwUB code = 3355) Xuu1sez7JnkBCwmKMsZUcq aLVplsCavn55tHV3eK16PI 2vZHPzNqM6QRVqmoZ7Uqh9 WUGoQSVteCYbO191i8fag8 psrsGqtJC4yCfwHUQjCMCs EDtuGFQgJnKqP8Deq6ZuvY GqHBI2qxlcHeHWMVs9KLIq hmWinVOfo1qmOBZveFIoz6 MuXMNpyfmlMFC3vrB6EQGp aZFdWZDnWuXBwtgwTLJ7UX JldGVudGlvbjsgIENUIGFi GK9cMTu7lWUtt7q1rH95rE Vwb6D2YRUsvyBkSDJ5XBXz n1ljOLVxPNihIl1hGNUwcU KwS7lnIlWmCDRjZAevHGNd ZTDhtUHbtJEruUO9trT8LF YdTQGzbHEyI6AbTPnlIxKb R36ocZ8qHAtztXTwTDCvUL yaROd9vIFyYP7fPKInAKfh cmVndWxhciBibGFkZGVyIH dhbGwsIHNtYWxsIHNjbGVy i5ZgNwBhe8C6xdIeivF3eS KbxhqopZWdrV5iiTNcaJ0m IGlsaWFjIGJvbmVccGFyfQ == SPECIMEN SOURCE (test z8bruXGkRFQyuTT4UwUtFC code = 3377) Icb6prm7OjvGQgjYQpREgs yOIjrrCkma38yON0kD23UO 7uBSDlMlQ8NLSflyE7Zmy9 DARnAJCjbXAhQ101w9zgs4 vvsoJeeOS6eUbdVQIwJYHg YWluXGZzMjAgTkVQSFJPU1 MSQHckSLuIHaYwBWIUKJ0L IEZMVUlEXHBhcn0= GROSS DESCRIPTION (test l0jclYNdRCEptYS2RoUsRR code = 3366) Mgd6osl6OgxKFcaXQyOBnu rZHqvcWqhi58dOU6sM18KJ 4yWDQfEmG5ECUkkxH8Tvw3 AKYlPRFydIYwO908v9tus9 gsuhCifRG1cGdjNXQnBCRl ISwcPEAgMqFhRzAbFIe1RI BwHqCpxIkbNvaia9D4WLWp oZbeGuOqarKaLFLlJKN6VF B1oA1irNpop7eqBVK8 MICROSCOPIC DESCRIPTION j6sivPOlZHHpgVS3TjVyMX (test code = 3371) Iwp6ilv5FvxHUygFEwHEhs uXMirsEavk29gCF3rG80RS 0vFSIvCtI1AOYqmaP7Mai2 GGEbAJHcxMRaV114e7ryr5 djnbKioTD2iEloMFMqEALe QChgKZPmXiWeHYFeZl3ggE VkLiBccGFyfQ== STATEMENT OF ADEQUACY Satisfactory (test code = 2757) Gross assessment was [facility] performed at ([facility], = 2777) Department of Pathology, [address] [place] [address], Technical component was [facility] performed at ([facility], = 2778) Department of Pathology, [address] [place] [address] 27726, Professional component [facility] was performed at ([facility], code = 2779) Department of Pathology, [address] [place] [address], [facility]2020-11-30 14:22:00Medical Cytology Report Case: [id number] Aut horizing Provider: Asuncion Perdomo MD Collected: 10/29/2020 10:10 AM Ordering Location: [address] Received: 10/29/2020 12:05 PM Service Pathologist: Suman Taylor MD Specimen: Nephrostomy, Left NEPHROSTOMY, LEFT, URINE FLUID (CYTOSPINS): - NECROSIS WITH CELLULAR DEGENERATION, FEW ATYPICAL CELLS, SUSPICIOUS FOR HIGH GRADE UROTHELIAL CARCINOMA Signing Pathologist Direct Phone Line: [phone] signed by Suman Taylor MD on 10/29/2020 at 2:22 [id number] hematuria; L hydronephrosis, hydroureter; L ureteral mass; Urinary retention; CT abd/pelvis with/without contrast showed 63h59cc enhancing mass in the mid left ureter, enlarged left common iliac chain lymph node, irregular bladder wall, small sclerotic focus in the right posterior iliac boneNEPHROSTOMY, LEFT, URINE FLUIDReceived 20 ml bloody fluid; prepared 4 cytospinsPerformed. [facility], Department of Pathology, [address] [place] [address], [facility], [facility], [address] [place] [id number], [facility], [facility], [address] [place] [id number], [facility] Blood Smear - Path [id number] 13:34:00 Test Item Value Reference Range Interpretation Comments Pathologist Review (test Cell counts code = 2640) confirmed. Pathologist: (test code Марина Trevino M.D. = 2849) (electronic signature) [facility] - PATHOLOGIST REVIEW 2020-10-29 13:34:00 Test Item Value Reference Range Interpretation Comments PERIPHERAL SMR REVIEW Cell counts confirmed. (BEAKER) (test code = 2640) [id number] Марина Trevino M.D. (BEAKER) (test code = (electronic signature) 2849) ANG, NEPHROSTOMY, PERC, EXTERNAL [id number] 13:04:00Patient on Eliquis, last dose 10/26 AMReason for exam:->Left hydronephrosis with distal ureteral mass. Please place PCNU and collect upper tract cytology [facility] : 1935 Sex: MFINAL REPORT Nephroureterostomy catheter placement, left, 10/29/2020. Clinical History: Left ureteral mass and hydronephrosis. Modality: Fluoroscopy and sonography. Lens Grinder Apprentice: Chary. Communications Analyst: Nikolas Doshi. Sedation: Versed 1 mg and fentanyl 50 mcg was given intravenously for moderate sedation. The patient's vital signs were monitored throughout the procedure and recorded to the patient's medical record by the nurse. Total intra-service time of sedation was 40 minutes. Estimated Blood Loss: Less than 5 cc. Specimen: None. Fluoro Time: 5.3 min. Dose (Ka,r): 166 mGy. Technique: Informed written consent was obtained. Discussion of risks, benefits, and alternatives were made with the patient. The patient expressed understanding and agreed to proceed. All elements maximal sterile barrier technique was utilized for this procedure, including utilization of sterile scrub solution for skin prep, a large sterile sheet to cover the areas of the patient that were not prepped, and hand hygiene, mask, head covering, and sterile gown for performing radiologist and scrub technologist. Local anesthesia was achieved with 1% lidocaine, the left lower pole calyx was visualized with ultrasound. Using ultrasound guidance, a 21-gauge Chiba needle was advanced into the calyx. Contrast injection confirmed placement within the calyx. A 0.018 inch wire was advanced through the needle a curled within the pelvis. The Accustick sheath was advanced over the wire into the renal pelvis. A 4 Grenadian Berenstein catheter and Glidewire were advanced down the ureter past the left ureteral mass and into the bladder. The Glidewire was exchanged for an Amplatz wire which was positioned within the bladder. After a small skin incision was made, the soft tissue tract was dilated an 8 Grenadian dilator. An 8 Grenadian x 26 cm nephroureterostomy catheter was advanced over the wire until the catheter tip was within the bladder. The wire was then removed, and the pigtail of the catheter was locked. The catheter was then secured onto the skin with 2-0 silk. The patient tolerated the procedure well, without immediate complications. The patient's vital signs re mained stable throughout the procedure. Patient disposition: The patient was discharged from the department in stable condition. Findings: There is severe left hydronephrosis and hydroureter down to the mid left ureter where a rounded filling defect is identified consistent with the history of ureteral mass. Impression:Successful and uncomplicated left nephroureterostomy catheter placement with conscious sedation. Signed: Silverio Doyleeport Verified Date/Time: 10/29/2020 13:04:36 Reading Location: [facility] B1 P048 Angio Body Reading Room Percutaneous Nephrostomy - Ext. Drain [id number] 13:04:00Interface, External Ris In - 10/29/2020 1:06 PM CSTFINAL REPORT Nephroureterostomy catheter placement, left, 10/29/2020. Clinical History: Left ureteral mass and hydronephrosis. Modality: Fluoroscopy and sonography. Lens Grinder Apprentice: Chary. Communications Analyst: Nikolas Doshi. Sedation: Versed 1 mg and fentanyl 50 mcg was given intravenously for moderate sedation. The patient's vi jessica signs were monitored throughout the procedure and recorded to the patient's medical record by the nurse. Total intra-service time of sedation was 40 minutes. Estimated Blood Loss: Less than 5 cc. Specimen: None. Fluoro Time: 5.3 min. Dose (Ka,r): 166 mGy. Technique: Informedwritten consent was obtained. Discussion of risks, benefits, and alternatives were made with the patient. The patient expressed understanding and agreed to proceed. All elements maximal sterile barrier technique was utilized for this procedure, including utilization of sterile scrub solution for skinprep, a large sterile sheet to cover the areas of the patient that were not prepped, and hand hygiene, mask, head covering, and sterile gown for performing radiologist and scrub technologist. Local anesthesia was achieved with 1% lidocaine, the left lower pole calyx was visualized with ultrasound. Using ultrasound guidance, a 21-gauge Chiba needle was advanced into the calyx. Contrast injection confirmed placement within the calyx. A 0.018 inch wire was advanced through the needle a curled withinthe pelvis. The Accustick sheath was advanced over the wire into the renal pelvis. A 4 Grenadian Berenstein catheter and Glidewire were advanced down the ureter past the left ureteral mass and into the bladder. The Glidewire was exchanged for an Amplatz wire which was positioned within the bladder. After a small skin incision was made, the soft tissue tract was dilated an 8 Grenadian dilator. An 8 Grenadian x26 cm nephroureterostomy catheter was advanced over the wire until the catheter tip was within the bladder. The wire was then removed, and the pigtail of the catheter was locked. The catheter was thensecured onto the skin with 2-0 silk. The patient tolerated the procedure well, without immediate complications. The patient's vital signs remained stable throughout the procedure. Patient disposition: The patient was discharged from the department in stable condition. Findings: There is severe left hydronephrosis and hydroureter down to the mid left ureter where a rounded filling defect is identified consistent with the history of ureteral mass. Impression:Successful and uncomplicated left nephroureterostomy catheter placement with conscious sedation. Signed: Silverio Doyle MDReport Verified Date/Time: 10/29/2020 13:04:36 Reading Location: [address] Body Reading [facility] 11:15:00Medical Cytology Report Case: [id number] Authorizing Provider: Asuncion Perdomo MD Collected: 10/27/2020 11:18 AM Ordering Location: [address] Received: 10/29/2020 09:17 AM Service Pathologist: Suman Taylor MD Specimen: Urine, Bladder Wash URINE, BLADDER WASHING (CYTOSPINS): - ATYPICAL DEGENERATED UROTHELIAL CELLS SUSPICIOUS FOR HIGH GRADE UROTHELIAL CARCINOMA Signing Pathologist Direct Phone Line: [phone] signed by Suman Taylor MD on 10/29/2020 at 11:15 [id number] with left hydronephrosis and distal ureteralmass is here for PCNU placementURINE, BLADDER WASHINGReceived 50 mls blood-tinged fluid; prepared 4 cytospinsPerformed. [facility], [facility] of [facility], [address] [place] [address], [facility], [facility] of [facility], [address] [place] [address], [facility] [place], Department of Pathology, [address] [place] [address], AXZKK METABOLIC PANEL 2020-10-29 05:11:00 Test Item Value Reference Range Interpretation Comments SODIUM (BEAKER) 140 meq/L 136-145 (test code = 381) POTASSIUM (BEAKER) 3.8 meq/L 3.5-5.1 (test code = 379) CHLORIDE (BEAKER) 108 meq/L 98-107 H (test code = 382) CO2 (BEAKER) (test 24 meq/L 22-29 code = 355) BLOOD UREA NITROGEN 19 mg/dL 7-21 (BEAKER) (test code = 354) CREATININE (BEAKER) 1.39 mg/dL 0.57-1.25 H (test code = 358) GLUCOSE RANDOM 79 mg/dL 70-105 (BEAKER) (test code = 652) CALCIUM (BEAKER) 8.7 mg/dL 8.4-10.2 (test code = 697) EGFR (BEAKER) (test 49 mL/min/1.73 ESTIMA SRINATH GFR IS code = 1092) sq m NOT ACCURATE CREATININE CLEARANCE IN PREDICTING GLOMERULAR FILTRATION RATE . ESTIMATED GFR I S NOT APPLICABLE FOR DIALYSIS PATIEN TS. Proof Carrier ID - [id number] 05:11:00 Test Item Value Reference Range Interpretation Comments MAGNESIUM (BEAKER) (test code = 2.0 mg/dL 1.6-2.6 627) Proof Carrier ID - [id number] 05:11:00 Test Item Value Reference Range Interpretation Comments PHOSPHORUS (BEAKER) (test code = 2.1 mg/dL 2.3-4.7 L 604) Proof Carrier ID - EDASIProthrombin time/[id number] 04:58:00 Test Item Value Reference Interpretation Comments Range Protime (test code = 15.6 See_Comment H [Autom ated 2962-2) message] The system which generated this result transmitted reference range : 11.9 - 14.2 seconds. The reference range was not used to interpret this result as normal/abnormal . INR (test code = 1.28 See_Comment [Automated 6301-6) message] The system which generated this result transmitted reference range : <=5.90. The reference range was not used to interpret this result as normal/abnormal . IWONA (test code = Effective 04/27/2019: IWONA) PT Reference Range ChangeNew: 11.9-14.2 Previous: 11.7-14.7 RECOMMENDED COUMADIN/WARFARIN INR THERAPY RANGESSTANDARD DOSE: 2.0-3.0 Includes: PROPHYLAXIS for venous thrombosis, systemic embolization; TREATMENT for venous thrombosis and/or pulmonary embolus.HIGH RISK: Target INR is 2.5-3.5 for patients wiht mechanical heart valves. Lab Interpretation Abnormal (test code = 04586-9) [facility] CenterPROTHROMBIN TIME/[id number] 04:58:00 Test Item Value Reference Range Interpretation Comments PROTIME (BEAKER) (test code = 15.6 seconds 11.9-14.2 H 759) INR (BEAKER) (test code = 370) 1.28 <=5.90 Effective 04/27/2019: PT Reference Range ChangeNew: 11.9-14.2 Previous: 11.7- 14.7RECOMMENDED COUMADIN/WARFARIN INR THERAPY RANGESSTANDARD DOSE: 2.0-3.0 Includes: PROPHYLAXIS for venous thrombosis, systemic embolization; TREATMENT for venous thrombosis and/or pulmonary embolus.HIGH RISK: Target INR is2.5-3.5 for patients wiht mechanical heart valves.CBC (HEMOGRAM ONLY)2020-10-29 04:53:00 Test Item Value Reference Range Interpretation Comments WHITE BLOOD CELL COUNT (BEAKER) 6.3 K/ L 3.5-10.5 (test code = 775) RED BLOOD CELL COUNT (BEAKER) 4.52 M/ L 4.63-6.08 L (test code = 761) HEMOGLOBIN (BEAKER) (test code = 13.6 GM/DL 13.7-17.5 L 410) HEMATOCRIT (BEAKER) (test code = 41.0 % 40.1-51.0 411) MEAN CORPUSCULAR VOLUME (BEAKER) 90.7 fL 79.0-92.2 (test code = 753) MEAN CORPUSCULAR HEMOGLOBIN 30.1 pg 25.7-32.2 (BEAKER) (test code = 751) MEAN CORPUSCULAR HEMOGLOBIN CONC 33.2 GM/DL 32.3-36.5 (BEAKER) (test code = 752) RED CELL DISTRIBUTION WIDTH 14.0 % 11.6-14.4 (BEAKER) (test code = 412) PLATELET COUNT (BEAKER) (test code 88 K/CU MM 150-450 L = 756) MEAN PLATELET VOLUME (BEAKER) 12.2 fL 9.4-12.4 (test code = 754) NUCLEATED RED BLOOD CELLS (BEAKER) 0 /100 WBC 0-0 (test code = 413) Platelet [id number] 14:40:00 Test Item Value Reference Range Interpretation Comments Platelets (test code 93 See_Comment L plt cou nt = 777-3) performed on purple top. [Automated message] The system which generated this result transmit srinath reference range : 150 - 450 K/CU MM. The reference range was not u sed to interpret th is result as normal/abnormal . IWONA (test code = IWONA) Proof Carrier ID - [id number] ID - [id number] Lab Interpretation Abnormal (test code = 38296-1) [facility] CenterPLATELET [id number] 14:40:00 Test Item Value Reference Range Interpretation Comments PLATELET COUNT 93 K/CU MM 150-450 L plt count per formed on (BEAKER) (test code = purple top. 756) Proof Carrier ID - [id number] ID - [id number] 06:09:00 Test Item Value Reference Range Interpretation Comments MAGNESIUM (BEAKER) (test code = 1.9 mg/dL 1.6-2.6 627) Proof Carrier ID - EDASIBASIC METABOLIC [id number] 06:09:00 Test Item Value Reference Range Interpretation Comments SODIUM (BEAKER) 139 meq/L 136-145 (test code = 381) POTASSIUM (BEAKER) 3.9 meq/L 3.5-5.1 (test code = 379) CHLORIDE (BEAKER) 111 meq/L 98-107 H (test code = 382) CO2 (BEAKER) (test 19 meq/L 22-29 L code = 355) BLOOD UREA NITROGEN 22 mg/dL 7-21 H (BEAKER) (test code = 354) CREATININE (BEAKER) 1.30 mg/dL 0.57-1.25 H (test code = 358) GLUCOSE RANDOM 81 mg/dL 70-105 (BEAKER) (test code = 652) CALCIUM (BEAKER) 8.3 mg/dL 8.4-10.2 L (test code = 697) EGFR (BEAKER) (test 53 mL/min/1.73 ESTIMA SRINATH GFR IS code = 1092) sq m NOT ACCURATE CREATININE CLEARANCE IN PREDICTING GLOMERULAR FILTRATION RATE . ESTIMATED GFR I S NOT APPLICABLE FOR DIALYSIS PATIEN TS. Proof Carrier ID - [id number] 06:09:00 Test Item Value Reference Range Interpretation Comments PHOSPHORUS (BEAKER) (test code = 2.3 mg/dL 2.3-4.7 604) Proof Carrier ID - EDASICBC (HEMOGRAM ONLY)2020-10-28 05:20:00 Test Item Value Reference Range Interpretation Comments WHITE BLOOD CELL COUNT (BEAKER) 5.9 K/ L 3.5-10.5 (test code = 775) RED BLOOD CELL COUNT (BEAKER) 4.40 M/ L 4.63-6.08 L (test code = 761) HEMOGLOBIN (BEAKER) (test code = 13.3 GM/DL 13.7-17.5 L 410) HEMATOCRIT (BEAKER) (test code = 40.9 % 40.1-51.0 411) MEAN CORPUSCULAR VOLUME (BEAKER) 93.0 fL 79.0-92.2 H (test code = 753) MEAN CORPUSCULAR HEMOGLOBIN 30.2 pg 25.7-32.2 (BEAKER) (test code = 751) MEAN CORPUSCULAR HEMOGLOBIN CONC 32.5 GM/DL 32.3-36.5 (BEAKER) (test code = 752) RED CELL DISTRIBUTION WIDTH 14.0 % 11.6-14.4 (BEAKER) (test code = 412) PLATELET COUNT (BEAKER) (test code 81 K/CU MM 150-450 L = 756) MEAN PLATELET VOLUME (BEAKER) 12.4 fL 9.4-12.4 (test code = 754) NUCLEATED RED BLOOD CELLS (BEAKER) 0 /100 WBC 0-0 (test code = 413) [id number] 14:15:00 Test Item Value Reference Range Interpretation Comments Haptoglobin (test code = 48 mg/dL 4542-7) IWONA (test code = IWONA) Proof Carrier ID - REMBERTO M Lab Interpretation (test Normal code = 30722-8) [facility] CenterHAPTOGLOBIN2020-11-28 14:15:00 Test Item Value Reference Range Interpretation Comments HAPTOGLOBIN (BEAKER) (test code = 48 mg/dL 366) Proof Carrier ID - REMBERTO MManual [id number] 13:21:00 Test Item Value Reference Range Interpretation Comments % Neutros (manual) (test 72 % code = 1359) % Lymphs (manual) (test 17 % code = 1360) % Monos (manual) (test 9 % code = 1361) % Eos (manual) (test 2 % code = 1362) # Neutros (manual) (test 4.75 See_Comment [A utomated message] code = 1365) The system Team Everest generated this result transmitted ref erence range: 1.80 - 8 .00 K/L. The refe rence range was not u sed to interpret this result as normal/abnor mal. # Lymphs (manual) (test 1.12 See_Comment L [Au tomated message] code = 1366) The system Team [employer]rest generated this result transmitted ref erence range: 1.48 - 4 .50 K/L. The refe rence range was not u sed to interpret this result as normal/abnor mal. # Monos (manual) (test 0.59 See_Comment [Aut omated message] code = 1367) The system Team [employer]rest generated this result transmitted ref erence range: 0.00 - 1 .30 K/L. The refe rence range was not u sed to interpret this result as normal/abnor mal. # Eos (manual) (test 0.13 See_Comment [Autom ated message] code = 1368) The system Team Everest generated this result transmitted ref erence range: 0.00 - 0 .50 K/L. The refe rence range was not u sed to interpret this result as normal/abnor mal. Total Counted (test code 100 = 1351) WBC Morphology (test Normal code = 487) Platelet Morphology Normal (test code = 486) RBC Morphology (test Normal code = 762) Lab Interpretation (test Abnormal code = 18126-8) [facility](MANUAL DIFFERENTIAL)2020-10-27 13:21:00 Test Item Value Reference Range Interpretation Comments NEUTROPHILS - REL (DIFF) (BEAKER) 72 % (test code = 1359) LYMPHOCYTES - REL (DIFF) (BEAKER) 17 % (test code = 1360) MONOCYTES - REL (DIFF) (BEAKER) 9 % (test code = 1361) EOSINOPHILS - REL (DIFF) (BEAKER) 2 % (test code = 1362) NEUTROPHILS - ABS (DIFF) (BEAKER) 4.75 K/ L 1.80-8.00 (test code = 1365) LYMPHOCYTES - ABS (DIFF) (BEAKER) 1.12 K/ L 1.48-4.50 L (test code = 1366) MONOCYTES - ABS (DIFF) (BEAKER) 0.59 K/ L 0.00-1.30 (test code = 1367) EOSINOPHILS - ABS (DIFF) (BEAKER) 0.13 K/ L 0.00-0.50 (test code = 1368) TOTAL COUNTED (BEAKER) (test code = 100 1351) WBC MORPHOLOGY (BEAKER) (test code Normal = 487) PLT MORPHOLOGY (BEAKER) (test code Normal = 486) RBC MORPHOLOGY (BEAKER) (test code Normal = 762) Hepatic function [id number] 13:13:00 Test Item Value Reference Range Interpretation Comments Protein, Total (test 6.2 See_Comment [Autom ated code = 2885-2) message] The system which generated this result transmit srinath reference range : 6.0 - 8.3 gm/dL . The reference range was not u sed to interpret th is result as normal/abnormal . Albumin (test code = 3.4 g/dL 3.5-5 L 71497-4) Total Bilirubin (test 0.7 mg/dL 0.2-1.2 code = 1975-2) Bilirubin, Direct 0.4 mg/dL 0.1-0.5 (test code = 1968-7) Alkaline Phosphatase 45 U/L 40-150 (test code = 6768-6) AST (test code = 20 U/L 5-34 1920-8) ALT (test code = 9 U/L 6-55 1742-6) IWONA (test code = IWONA) Proof Carrier ID - REMBERTO M Lab Interpretation Abnormal (test code = 62986-1) [facility] CenterLactate dehydrogenase (LDH)2020-10-27 13:13:00 Test Item Value Reference Range Interpretation Comments LDH (test code = 2532-0) 299 U/L 125-220 H IWONA (test code = IWONA) Proof Carrier ID - REMBERTO M Lab Interpretation (test Abnormal code = 48356-2) [facility] CenterHEPATIC FUNCTION [id number] 13:13:00 Test Item Value Reference Range Interpretation Comments TOTAL PROTEIN (BEAKER) (test code = 6.2 gm/dL 6.0-8.3 770) ALBUMIN (BEAKER) (test code = 1145) 3.4 g/dL 3.5-5.0 L BILIRUBIN TOTAL (BEAKER) (test code 0.7 mg/dL 0.2-1.2 = 377) BILIRUBIN DIRECT (BEAKER) (test 0.4 mg/dL 0.1-0.5 code = 706) ALKALINE PHOSPHATASE (BEAKER) (test 45 U/L 40-150 code = 346) AST (SGOT) (BEAKER) (test code = 20 U/L 5-34 353) ALT (SGPT) (BEAKER) (test code = 9 U/L 6-55 347) Proof Carrier ID - REMBERTO MLACTATE DEHYDROGENASE (LDH)2020-10-27 13:13:00 Test Item Value Reference Range Interpretation Comments LACTATE DEHYDROGENASE (BEAKER) (test 299 U/L 125-220 H code = 635) Proof Carrier ID - REMBERTO MReticulocyte [id number] 13:00:00 Test Item Value Reference Range Interpretation Comments % Retic (test code = 1.3 % 0.5-1.8 38827-5) IWONA (test code = IWONA) Proof Carrier ID - [id number] Lab Interpretation (test Normal code = 01064-0) [facility] CenterRETICULOCYTE [id number] 13:00:00 Test Item Value Reference Range Interpretation Comments RETICULOCYTE COUNT PCT (BEAKER) (test 1.3 % 0.5-1.8 code = 575) Proof Carrier ID - [id number]/S, RENAL, [id number] 10:56:00Reason for exam:- >Eval for hydro; has hematuria [facility] : 1935 Sex: MFINAL REPORT U/S, RENAL, COMPLETE CLINICAL HISTORY: Eval for hydro; has hematuria COMPARISON: Same day CT abdomen and pelvis TECHNIQUE: Real time grayscale and colorDoppler imaging of the kidneys and urinary bladder was performed. FINDINGS: Right kidney:Length = 11.4 cmCortical thickness: NormalEchogenicity: NormalCollecting system: No hydronephrosisOther findings: 2 simple appearing cysts measuring up to 2.6 cm Left kidney:Length = 12.7 cmCortical thickness: Mild thinningEchogenicity: NormalCollecting system: Severe hydronephrosisOther findings: Simple appearing cyst measuring 2.9 cm Urinary bladder: Decompressed with a Woody catheter IMPRESSION: Severe left hy dronephrosis. Bilateral simple renal cysts. Signed: Naif Gutiérrez Verified Date/Time: 10/27/2020 10:56:29 Reading Location: [address] Body Reading Room renal [id number] 10:56:00Interface, External Ris In - 10/27/2020 10:58 AM CSTFINAL REPORT U/S, RENAL, COMPLETE CLINICAL HISTORY: Eval for hydro; has hematuria COMPARISON: Same day CT abdomen and pelvis TECHNIQUE: Real time grayscale and color Doppler imaging of the kidneys and urinary bladder was performed. FINDINGS: Right kidney:Length = 11.4 cmCortical thickness: NormalEchogenicity: NormalCollecting system: No hydronephrosisOther findings: 2 simple appearing cysts measuring up to 2.6 cm Left kidney:Length = 12.7 cmCortical thickness: Mild thinningEchogenicity: NormalCollecting system: Severe hydronephrosisOther findings: Simple appearing cyst measuring 2.9 cm Urinary bladder: Decompressed with a Woody catheter IMPRESSION: Severe left hydronephrosis. Bilateral simple renal cysts. Signed: Naif Gutiérrez Verified Date/Time: 10/27/2020 10:56:29 Reading Location: [facility] C013 CT Body Reading [facility]2020-10-27 10:28:00 Test Item Value Reference Range Interpretation Comments SARS-COV2/RT-PCR Negative Not Detected, (test code = Negative, See 86090-3) external report for linked test SARS-COV-2 [facility] PERFORMING LAB (test code = 65096-9) IWONA (test code = Negative result for this IWONA) test determines that SARS-CoV-2 RNA was not present in the [...] of the Act. Fact Sheet for Healthcare Providers:https://www.[employer] ideTryolabs.Zopa/sites/default/f dariel/product/documents/F act_Sheet_HC_Providers_L tuh_XBXF-HiI-5.pdf Fact Sheet for Healthcare Patients:https://www.[employer].Zopa/sites/default/fi les/product/documents/Fa ct_Sheet_Patients_Lyra_S ARS-CoV-2.pdf Performing Laboratory:[facility] [place] [address] [facility] ([facility])2020-10-27 10:28:00 Test Item Value Reference Range Interpretation Comments SARS-COV2/RT-PCR (test Negative Not Detected, Negative, code = 3099301) See external report for linked test SARS-COV-2 PERFORMING LAB [facility] (test code = 3323070) Negative result for this test determines that SARS-CoV-2 RNA was not present in the specimen above the Limit of Detection (LOD). However, Negative results do not preclude SARS-CoV-2 infection and should not be used as the sole basis for treatment or patient management decisions. Negative results mustbe combined with clinical observations, patient history, and epidemiological information. A false negative result may occur if a specimen is improperly collected, transported or handled. A false negative result should be considered if patient's recent exposures or clinical presentation indicate that COVID-19 (SARS-CoV-2) is likely and diagnostic tests for other causes of illness are negative. Re-testing should be considered in cases of suspected false negatives.The limit of detection for this assay is 800 copies/mL.This SARS CoV-2 test is a real-time RT-PCR test intended for the qualitative detection of nucleic acid from SARS-CoV-2 in a nasopharyngeal swab specimen collected from individuals susp ected of COVID-19 by their healthcare provider.This test has not been Food and Drug [...] is revoked under Section 564(g) of the Act.Fact Sheet for Healthcare Providers:https://www.[employer].Zopa/sites/default/files/product/documents/Fact_Shee h_QQ_Yehabvqao_Lzgc_YREY-PxP-7.pdfFact Sheet for Healthcare Patients:https://www.[employer]/sites/default/files/product/ documents/Fqwm_Ypeiq_Srnghwgu_Pbny_OIJP-WkA-1.pdfPerforming Laboratory:[facility], [place] [address]BA, [id number] 10:26:00Three phase urogramNon-contrastArterialDelayed phase (15 mins after contrast load)Unlisted Reason for Exam - Click Yes and Enter Reason Below- >NoPlease specify:->Urogram [facility] : 1935 Sex: MFINAL REPORT CT, ABDOMEN \\T\\ PELVIS, WITHOUT \\T\\ WITH IV CONTRAST CLINICAL HISTORY: Hematuria, unknown cause COMPARISON: None TECHNIQUE: CT abdomen and pelvis without and with IV contrast, urogram protocol. The examination was performed according to departmental dose-optimization program which includes automated exposure control, adjustment of the mA and/or kV acco rding to patient size and/or use of iterative reconstruction technique. FINDINGS: Genitourinary Findings: Right kidney and ureterCalculi and collecting system: None. No hydronephrosis.Renal lesion: A nonenhancing hemorrhagic/proteinaceous 27 mm hyperdense cyst in the anterior interpolar region on theright and an additional simple 20 mm cyst in the interpolar region.Urothelial lesion: None. Left kidney and ureterCalculi and collecting system: Severe right hydroureteronephrosis with a delayed nephrogram and no apparent excretion on delayed phaseRenal lesion: A 24 mm simple renal cyst in the interpolar region and additional punctate nonenhancing foci of the upper pole, likely additional renal cystsbut too small to characterize.Urothelial lesion: An enhancing mass in the mid ureter measuring 34 x 16 mm (coronal image 59). The distal ureter is decompressed. Urinary bladder: Urinary bladder is decompressed with a Woody catheter and poorly evaluated. The urinary bladder wall is somewhat irregular appearing, there is perivascular fat stranding. Intraluminal bladder gas is likely related to instrumentation. Additional Findings:Lung bases: Minimal subpleural scarring.Liver: Numerous hypoattenuating lesions in the liver, largest lesions are cysts, up to 22 mm, smaller lesions are too small to characterize but likely representing additional cysts.Gallbladder and bile ducts: Unremarkable.Spleen: A subcentimeter hypoattenuating focus in the central spleen, too small to characterize but almost certainly benign. Mild splenomegaly, 15 cm in long axis.Pancreas: Mildly atrophic. A punctate calcification suggests chronic pancreatitis.Adrenals: UnremarkableBowel: Moderate amount of stool throughout the colon. Normal appendix. No evidence for bowel obstruction.Reproductive organs: Unremarkable.Lymph nodes: A 14 x 17 mm left common iliac chain lymph node suspicious for lorie disease.Peritoneum: Unremarkable.Vessels: Moderate atherosclerotic calcifications. Contrast reflux into the hepatic veins on the ar terial phase suggesting elevated right heart pressures.Abdominal wall: Small fat-containing left inguinal hernia. Postsurgical changes in the right groinBones: Multilevel degenerative changes of the lumbar spine. A small nonspecific sclerotic focus in the right posterior iliac bone. IMPRESSION: 1.Severe left hydronephrosis with delayed left nephrogram and no visible contrast excretion, related to a 34 x 16 mm enhancing mass in the mid left ureter, highly suspicious for carcinoma.2.An enlarged left common iliac chain lymph node compatible with lorie disease.3.No nephroureterolithiasis.4.The urinarybladder wall is irregular but decompressed and poorly evaluated, with perivesical fat stranding. Correlate with urinalysis and cystoscopy.5.A small nonspecific sclerotic focus in the right posterior iliac bone. Low suspicion for metastatic disease, correlate with any outside priors and attention on follow-up Signed: Naif Gutiérrez Verified Date/Time: 10/27/2020 10:26:29 Reading Location: [facility] [id number] CT Body Reading Room CT abdomen/pelvis without & with IV [id number] 10:26:00Interface, External Ris In - 10/27/2020 12:[address], ABDOMEN \\T\\ PELVIS, WITHOUT \\T\\ WITH IV CONTRAST CLINICAL HISTORY: Hematuria, unknown cause COMPARISON: None TECHNIQUE: CT abdomen and pelvis without and with IV contrast, urogram protocol. The examination wasperformed according to departmental dose-optimization program which includes automated exposure control, adjustment of the mA and/or kV according to patient size and/or use of iterative reconstruction technique. FINDINGS: Genitourinary Findings: Right kidney and ureterCalculi and collecting system: None. No hydronephrosis.Renal lesion: A nonenhancing hemorrhagic/proteinaceous 27 mm hyperdense cyst in the anterior interpolar region on the right and an additional simple 20 mm cyst in the interpolar re gion.Urothelial lesion: None. Left kidney and ureterCalculi and collecting system: Severe right hydroureteronephrosis with a delayed nephrogram and no apparent excretion on delayed phaseRenal lesion: A24 mm simple renal cyst in the interpolar region and additional punctate nonenhancing foci of the upper pole, likely additional renal cysts but too small to characterize.Urothelial lesion: An enhancingmass in the mid ureter measuring 34 x 16 mm (coronal image 59). The distal ureter is decompressed. Urinary bladder: Urinary bladder is decompressed with a Woody catheter and poorly evaluated. The urinary bladder wall is somewhat irregular appearing, there is perivascular fat stranding. Intraluminal bladder gas is likely related to instrumentation. Additional Findings:Lung bases: Minimal subpleural scarring.Liver: Numerous hypoattenuating lesions in the liver, largest lesions are cysts, up to 22 mm, smaller lesions are too small to characterize but likely representing additional cysts.Gallbladder and bile ducts: Unremarkable.Spleen: A subcentimeter hypoattenuating focus in the central spleen, too small to characterize but almost certainly benign. Mild splenomegaly, 15 cm in long axis.Pancreas: Mildly atrophic. A punctate calcification suggests chronic pancreatitis.Adrenals: UnremarkableBowel: Mode rate amount of stool throughout the colon. Normal appendix. No evidence for bowel obstruction.Reproductive organs: Unremarkable.Lymph nodes: A 14 x 17 mm left common iliac chain lymph node suspicious for lorie disease.Peritoneum: Unremarkable.Vessels: Moderate atherosclerotic calcifications. Contrastreflux into the hepatic veins on the arterial phase suggesting elevated right heart pressures.Abdominal wall: Small fat-containing left inguinal hernia. Postsurgical changes in the right groinBones: Multilevel degenerative changes of the lumbar spine. A small nonspecific sclerotic focus in the right posterior iliac bone. IMPRESSION: 1.Severe left hydronephrosis with delayed left nephrogram and no visible contrast excretion, related to a 34 x 16 mm enhancing mass in the mid left ureter, highly suspicious for carcinoma.2.An enlarged left common iliac chain lymph node compatible with lorie disease.3.No nephroureterolithiasis.4.The urinary bladder wall is irregular but decompressed and poorly evaluated, with perivesical fat stranding. Correlate with urinalysis and cystoscopy.5.A small nonspecific sclerotic focus in the right posterior iliac bone. Low suspicion for metastatic disease, correlate withany outside priors and attention on follow-up Signed: Naif Gutiérrez Verified Date/Time: 10/27/2020 10:26:29 Reading Location: [facility] [id number] CT Body Reading [facility] [id number] 08:21:48Interface, External Ris In - 10/27/2020 8:21 AM CSTVentricular Rate 57 BPMAtrial Rate 242 BPMQRS Duration 82 msQ-T Interval 472 msQTC Calculation(Bazett) 459 msP [place] 61 degreesR [place] 30 degreesT Axis49 degreesAtrial flutter with variable A-V block Very poor baselineNonspecific ST abnormalityAbnormal ECGNo previous ECGs availableConfirmed by MD Duron Roberto ([id number]) on 10/27/2020 8:21:45 AM [facility] CenterBASIC METABOLIC [id number] 05:16:00 Test Item Value Reference Range Interpretation Comments SODIUM (BEAKER) 140 meq/L 136-145 (test code = 381) POTASSIUM (BEAKER) 4.0 meq/L 3.5-5.1 (test code = 379) CHLORIDE (BEAKER) 108 meq/L 98-107 H (test code = 382) CO2 (BEAKER) (test 24 meq/L 22-29 code = 355) BLOOD UREA NITROGEN 25 mg/dL 7-21 H (BEAKER) (test code = 354) CREATININE (BEAKER) 1.44 mg/dL 0.57-1.25 H (test code = 358) GLUCOSE RANDOM 67 mg/dL 70-105 L (BEAKER) (test code = 652) CALCIUM (BEAKER) 8.8 mg/dL 8.4-10.2 (test code = 697) EGFR (BEAKER) (test 47 mL/min/1.73 ESTIMA SRINATH GFR IS code = 1092) sq m NOT ACCURATE CREATININE CLEARANCE IN PREDICTING GLOMERULAR FILTRATION RATE . ESTIMATED GFR I S NOT APPLICABLE FOR DIALYSIS PATIEN TS. Proof Carrier ID - [id number] 05:16:00 Test Item Value Reference Range Interpretation Comments MAGNESIUM (BEAKER) (test code = 1.9 mg/dL 1.6-2.6 627) Proof Carrier ID - [id number] 05:16:00 Test Item Value Reference Range Interpretation Comments PHOSPHORUS (BEAKER) (test code = 2.9 mg/dL 2.3-4.7 604) Proof Carrier ID - [id number] 05:04:00 Test Item Value Reference Range Interpretation Comments PTT (test code = 37.2 See_Comment H [Automated message] 33342-5) The system Team [employer] generated this result transmitted ref erence range: 22.5 - 3 6.0 seconds. The reference range was not used to int erpret this result as normal/abnormal . Lab Interpretation (test Abnormal code = 46009-1) [facility] CenterAPTT2020-11-28 05:04:00 Test Item Value Reference Range Interpretation Comments PARTIAL THROMBOPLASTIN TIME 37.2 seconds 22.5-36.0 H (BEAKER) (test code = 760) PROTHROMBIN TIME/[id number] 05:03:00 Test Item Value Reference Range Interpretation Comments PROTIME (BEAKER) (test code = 15.8 seconds 11.9-14.2 H 759) INR (BEAKER) (test code = 370) 1.30 <=5.90 Effective 04/27/2019: PT Reference Range ChangeNew: 11.9-14.2 Previous: 11.7- 14.7RECOMMENDED COUMADIN/WARFARIN INR THERAPY RANGESSTANDARD DOSE: 2.0-3.0 Includes: PROPHYLAXIS for venous thrombosis, systemic embolization; TREATMENT for venous thrombosis and/or pulmonary embolus.HIGH RISK: Target INR is2.5-3.5 for patients wiht mechanical heart valves.CBC (HEMOGRAM ONLY)2020-10-27 04:44:00 Test Item Value Reference Range Interpretation Comments WHITE BLOOD CELL COUNT (BEAKER) 6.6 K/ L 3.5-10.5 (test code = 775) RED BLOOD CELL COUNT (BEAKER) 4.27 M/ L 4.63-6.08 L (test code = 761) HEMOGLOBIN (BEAKER) (test code = 12.9 GM/DL 13.7-17.5 L 410) HEMATOCRIT (BEAKER) (test code = 39.3 % 40.1-51.0 L 411) MEAN CORPUSCULAR VOLUME (BEAKER) 92.0 fL 79.0-92.2 (test code = 753) MEAN CORPUSCULAR HEMOGLOBIN 30.2 pg 25.7-32.2 (BEAKER) (test code = 751) MEAN CORPUSCULAR HEMOGLOBIN CONC 32.8 GM/DL 32.3-36.5 (BEAKER) (test code = 752) RED CELL DISTRIBUTION WIDTH 14.2 % 11.6-14.4 (BEAKER) (test code = 412) PLATELET COUNT (BEAKER) (test code 84 K/CU MM 150-450 L = 756) MEAN PLATELET VOLUME (BEAKER) 11.9 fL 9.4-12.4 (test code = 754) NUCLEATED RED BLOOD CELLS (BEAKER) 0 /100 WBC 0-0 (test code = 413) ABORH, [id number] 20:45:00 Test Item Value Reference Range Interpretation Comments ABO Grouping (test code = 2588) A Rh Factor (test code = 2589) POS [facility] CenterType and screen, [id number] 19:10:00 Test Item Value Reference Range Interpretation Comments ABO/RH AUTOMATED (BEAKER) (test A POSITIVE code = 2260) Ab Scrn (test code = 890-4) NEGATIVE [facility] CenterUrinalysis w/Microscopic + Reflex to Culture 2020-10-26 19:08:00 Test Item Value Reference Range Interpretation Comments Color, UA (test code [place] = 5778-6) Clarity, UA (test Hazy code = 5767-9) Specific [place], UA 1.015 1.001-1.035 (test code = 5811-5) pH, UA (test code = 6.0 5.0-8.0 5803-2) Protein, UA (test 30 mg/dL Negative A code = 76399-4) Glucose, UA (test Negative Negative code = 365) Ketones, UA (test Negative Negative code = 2514-8) Bilirubin, UA (test Negative Negative code = 58039-8) Blood, UA (test code Large Negative A = 35468-8) Nitrite, UA (test Negative Negative code = 5802-4) Leukocytes, UA (test Small Negative A code = 5799-2) Urobilinogen, UA 0.2 mg/dL 0.2-1 (test code = 51287-4) RBC, UA (test code = 1221 See_Comment [Autom ated 61371-9) message] The system which generated this result transmit srinath reference range : /HPF. The reference range was not used to interpret this result as normal/abnormal . WBC, UA (test code = 124 See_Comment [Autom ated 5821-4) message] The system which generated this result transmit srinath reference range : /HPF. The reference range was not used to interpret this result as normal/abnormal . Bacteria, UA (test Many code = 27701-3) Mucus (test code = Rare 8247-9) Crystals, Urine (test Many code = 59780-6) Specimen Source (test code = 2795) IWONA (test code = IWONA) Proof Carrier ID - [auto]Proof Carrier ID - tech Lab Interpretation Abnormal (test code = 39952-1) [facility] CenterURINALYSIS W/ REFLEX URINE [id number] 19:08:00 Test Item Value Reference Range Interpretation Comments COLOR (BEAKER) (test code = 470) [place] CLARITY (BEAKER) (test code = 469) Hazy SPECIFIC GRAVITY UA (BEAKER) (test 1.015 1.001-1.035 code = 468) PH UA (BEAKER) (test code = 467) 6.0 5.0-8.0 PROTEIN UA (BEAKER) (test code = 30 mg/dL Negative A 464) GLUCOSE UA (BEAKER) (test code = Negative Negative 365) KETONES UA (BEAKER) (test code = Negative Negative 371) BILIRUBIN UA (BEAKER) (test code = Negative Negative 462) BLOOD UA (BEAKER) (test code = 461) Large Negative A NITRITE UA (BEAKER) (test code = Negative Negative 465) LEUKOCYTE ESTERASE UA (BEAKER) Small Negative A (test code = 466) UROBILINOGEN UA (BEAKER) (test code 0.2 mg/dL 0.2-1.0 = 463) RBC UA (BEAKER) (test code = 519) 1221 /HPF WBC UA (BEAKER) (test code = 520) 124 /HPF BACTERIA (BEAKER) (test code = 517) Many MUCUS (BEAKER) (test code = 1574) Rare CRYSTALS, URINE (BEAKER) (test code Many = 1521) SOURCE(BEAKER) (test code = 2795) Proof Carrier ID - [auto]Proof Carrier ID - techComprehensive metabolic [id number] 18:51:00 Test Item Value Reference Range Interpretation Comments Protein, Total (test 7.4 See_Comment [Autom ated code = 2885-2) message] The system which generated this result transmit srinath reference range : 6.0 - 8.3 gm/dL . The reference range was not u sed to interpret th is result as normal/abnormal . Albumin (test code = 3.9 g/dL 3.5-5 13903-4) Alkaline Phosphatase 55 U/L 40-150 (test code = 6768-6) Total Bilirubin (test 1.1 mg/dL 0.2-1.2 code = 1975-2) Sodium (test code = 141 meq/L 103-429 0993-2) Potassium (test code 4.5 meq/L 3.5-5.1 = 2823-3) Chloride (test code = 107 meq/L 98-107 5-0) CO2 (test code = 25 meq/L 22-29 2027-9) BUN (test code = 26 mg/dL 7-21 H 3094-0) Creatinine (test code 1.54 mg/dL 0.57-1.25 H = 2160-0) Glucose (test code = 86 mg/dL 70-105 2345-7) Calcium (test code = 9.4 mg/dL 8.4-10.2 53461-9) AST (test code = 20 U/L 5-34 1920-8) ALT (test code = 10 U/L 6-55 1742-6) EGFR (test code = 43 mL/min/1.73 [place] [address]-8) NOT ACCURATE CREATININE CLEARANCE IN PREDICTING GLOMERULAR FILTRATION RATE . ESTIMATED GFR I S NOT APPLICABLE FOR DIALYSIS PATIEN TSShyla BUSTILLO (test code = IWONA) Proof Carrier ID - DB Lab Interpretation Abnormal (test code = 96608-9) [facility] CenterCOMPREHENSIVE METABOLIC [id number] 18:51:00 Test Item Value Reference Range Interpretation Comments TOTAL PROTEIN 7.4 gm/dL 6.0-8.3 (BEAKER) (test code = 770) ALBUMIN (BEAKER) 3.9 g/dL 3.5-5.0 (test code = 1145) ALKALINE PHOSPHATASE 55 U/L 40-150 (BEAKER) (test code = 346) BILIRUBIN TOTAL 1.1 mg/dL 0.2-1.2 (BEAKER) (test code = 377) SODIUM (BEAKER) (test 141 meq/L 136-145 code = 381) POTASSIUM (BEAKER) 4.5 meq/L 3.5-5.1 (test code = 379) CHLORIDE (BEAKER) 107 meq/L 98-107 (test code = 382) CO2 (BEAKER) (test 25 meq/L 22-29 code = 355) BLOOD UREA NITROGEN 26 mg/dL 7-21 H (BEAKER) (test code = 354) CREATININE (BEAKER) 1.54 mg/dL 0.57-1.25 H (test code = 358) GLUCOSE RANDOM 86 mg/dL 70-105 (BEAKER) (test code = 652) CALCIUM (BEAKER) 9.4 mg/dL 8.4-10.2 (test code = 697) AST (SGOT) (BEAKER) 20 U/L 5-34 (test code = 353) ALT (SGPT) (BEAKER) 10 U/L 6-55 (test code = 347) EGFR (BEAKER) (test 43 mL/min/1.73 ESTIMA SRINATH GFR IS code = 1092) sq m NOT ACCURATE CREATININE CLEARANCE IN PREDICTING GLOMERULAR FILTRATION RATE . ESTIMATED GFR I S NOT APPLICABLE FOR DIALYSIS PATIEN TS. Proof Carrier ID - [id number] 18:51:00 Test Item Value Reference Range Interpretation Comments MAGNESIUM (BEAKER) (test code = 2.2 mg/dL 1.6-2.6 627) Proof Carrier ID - [id number] 18:51:00 Test Item Value Reference Range Interpretation Comments PHOSPHORUS (BEAKER) (test code = 3.3 mg/dL 2.3-4.7 604) Proof Carrier ID - DBCBC with platelet count + automated [id number] 18:28:00 Test Item Value Reference Range Interpretation Comments WBC (test code = 6690-2) 5.1 See_Comment [A utomated message] The system Team [employer] generated this result transmitted ref erence range: 3.5 - 10 .5 K/L. The refe rence range was not u sed to interpret this result as normal/abnor mal. RBC (test code = 789-8) 4.78 See_Comment [Au tomated message] The system Team [employer] generated this result transmitted ref erence range: 4.63 - 6 .08 M/L. The refe rence range was not u sed to interpret this result as normal/abnor mal. MCHC (test code = 786-4) 32.5 See_Comment [A utomated message] The system Team [employer] generated this result transmitted ref erence range: 32.3 - 3 6.5 GM/DL. The refe rence range was not u sed to interpret this result as normal/abnor mal. Hematocrit (test code = 44.0 % 40.1-51 4544-3) MCV (test code = 787-2) 92.1 fL 79-92.2 MCH (test code = 785-6) 29.9 pg 25.7-32.2 RDW (test code = 788-0) 14.1 % 11.6-14.4 Platelets (test code = 88 See_Comment L [Aut omated message] 997-3) The system Team [employer] generated this result transmitted ref erence range: 150 - 45 0 K/CU MM. The referen ce range was not u sed to interpret this result as normal/abnor mal. MPV (test code = 11.4 fL 9.4-12.4 68250-0) nRBC (test code = 413) 0 See_Comment [Aut omated message] The system Team [employer] generated this result transmitted ref erence range: 0 - 0 /1 00 WBC. The refere nce range was not u sed to interpret this result as normal/abnor mal. % Neutros (test code = 62 % 429) % Lymphs (test code = 25 % 430) % Monos (test code = 8 % 431) % Eos (test code = 432) 3 % % Baso (test code = 437) 1 % # Neutros (test code = 3.18 See_Comment [Aut omated message] 670) The system Team [employer] generated this result transmitted ref erence range: 1.78 - 5 .38 K/L. The refe rence range was not u sed to interpret this result as normal/abnor mal. # Lymphs (test code = 1.28 See_Comment L [Auto mated message] 414) The system Team [employer] generated this result transmitted ref erence range: 1.32 - 3 .57 K/L. The refe rence range was not u sed to interpret this result as normal/abnor mal. # Monos (test code = 0.41 See_Comment [Autom ated message] 415) The system Team [employer] generated this result transmitted ref erence range: 0.30 - 0 .82 K/L. The refe rence range was not u sed to interpret this result as normal/abnor mal. # Eos (test code = 416) 0.17 See_Comment [Au tomated message] The system Team [employer] generated this result transmitted ref erence range: 0.04 - 0 .54 K/L. The refe rence range was not u sed to interpret this result as normal/abnor mal. # Baso (test code = 417) 0.06 See_Comment [A utomated message] The system Team [employer] generated this result transmitted ref erence range: 0.01 - 0 .08 K/L. The refe rence range was not u sed to interpret this result as normal/abnor mal. Immature 0 % 0-1 Granulocytes-Relative (test code = 2801) Lab Interpretation (test Abnormal code = 27038-0) [facility] W/PLT COUNT & AUTO [id number] 18:28:00 Test Item Value Reference Range Interpretation Comments WHITE BLOOD CELL COUNT (BEAKER) 5.1 K/ L 3.5-10.5 (test code = 775) RED BLOOD CELL COUNT (BEAKER) 4.78 M/ L 4.63-6.08 (test code = 761) HEMOGLOBIN (BEAKER) (test code = 14.3 GM/DL 13.7-17.5 410) HEMATOCRIT (BEAKER) (test code = 44.0 % 40.1-51.0 411) MEAN CORPUSCULAR VOLUME (BEAKER) 92.1 fL 79.0-92.2 (test code = 753) MEAN CORPUSCULAR HEMOGLOBIN 29.9 pg 25.7-32.2 (BEAKER) (test code = 751) MEAN CORPUSCULAR HEMOGLOBIN CONC 32.5 GM/DL 32.3-36.5 (BEAKER) (test code = 752) RED CELL DISTRIBUTION WIDTH 14.1 % 11.6-14.4 (BEAKER) (test code = 412) PLATELET COUNT (BEAKER) (test code 88 K/CU MM 150-450 L = 756) MEAN PLATELET VOLUME (BEAKER) 11.4 fL 9.4-12.4 (test code = 754) NUCLEATED RED BLOOD CELLS (BEAKER) 0 /100 WBC 0-0 (test code = 413) NEUTROPHILS RELATIVE PERCENT 62 % (BEAKER) (test code = 429) LYMPHOCYTES RELATIVE PERCENT 25 % (BEAKER) (test code = 430) MONOCYTES RELATIVE PERCENT 8 % (BEAKER) (test code = 431) EOSINOPHILS RELATIVE PERCENT 3 % (BEAKER) (test code = 432) BASOPHILS RELATIVE PERCENT 1 % (BEAKER) (test code = 437) NEUTROPHILS ABSOLUTE COUNT 3.18 K/ L 1.78-5.38 (BEAKER) (test code = 670) LYMPHOCYTES ABSOLUTE COUNT 1.28 K/ L 1.32-3.57 L (BEAKER) (test code = 414) MONOCYTES ABSOLUTE COUNT (BEAKER) 0.41 K/ L 0.30-0.82 (test code = 415) EOSINOPHILS ABSOLUTE COUNT 0.17 K/ L 0.04-0.54 (BEAKER) (test code = 416) BASOPHILS ABSOLUTE COUNT (BEAKER) 0.06 K/ L 0.01-0.08 (test code = 417) IMMATURE GRANULOCYTES-RELATIVE 0 % 0-1 PERCENT (BEAKER) (test code = 2801) CHEM [id number] 06:42:002.5[facility] QARQF5263-24-17 06:42:0058 [facility]CHE[facility] LWRBO7426-74-54 06:42:0017[facility]annCHEM PANEL 2016-12-26 06:42:0095[facility]CHE[facility] JCRNO9172-97-31 06:42:003.7[facility]annCHEM EOZOV3345-30-32 06:42:11977Qhvyvawu HermannCHEM GAJSJ9294-57-78 06:42:001.17[facility]annCHE[facility] VYMBA3526-57-34 06:42:0027[facility]annCHE[facility] PSFEZ8624-39-74 06:42:02648Yaxaojjo HermannCHEM QAQPY9900-49-19 06:42:008.4 [facility]CHE[facility] WBLBU3061-90-82 06:42:0010.7[facility]annCHEM PANEL 2016-12-26 06:42:002.2[facility] BpemfxeHULRDDZZHQ6627-29-33 06:42:001.1[facility] LywswisDJGCONBEBZ6267-11-31 06:42:006.9[facility] XzordgeKFYAVZGXDT4244-99-38 06:42:000.2[facility] LdnamevLPBKRDIDVN5715-78-16 06:42:000.1[facility] SUANJGOLIT6510-06-91 06:42:000.6[facility] LqvqndaKESCSNFMBC3365-41-25 06:42:000.7 [facility] PccvatgNCNJBPVWXJ3424-37-43 06:42:0077.6[facility]annHEMATOLOGY 2016-12-26 06:42:007.1[facility] XvoosgeUEUVALGMUB7221-64-05 06:42:001.9[facility] ZbnstjzRABQWPWSQH0162-29-49 06:42:0012.7[facility] RgnacpgFCVETFOXJI6388-48-69 06:42:009.1[facility] YpxhdrwBXIXUMVYZY0051-01-56 06:42:35300Zkszksss Jair QWHNLXYJXI6251-65-44 06:42:0013.8[facility] NlplxuyCAYDVQOJGY6560-01-14 06:42:00 8.9[facility] BzysrxgSPBZVYOBTG0806-34-22 06:42:004.84[facility]annHEMATOLOGY 2016-12-26 06:42:0043.3[facility] RksyiwjCDRCCPHMFW7544-55-87 06:42:00 Test Item Value Reference Range Interpretation Comments MCH (test code = MCH) 30.0 pg 27.0-31.0 [facility] AwxqajeCFFFQOIRBE4488-38-24 06:42:0014.5[facility]annHEMATOLOGY 2016-12-26 06:42:0033.6[facility] LaehohcSXYIWGMLWD7476-05-64 06:42:0089.4[facility] HermannPARATHYROID UIHGAYL0471-99-76 06:42:001.15[facility] HermannPARATHYROID EIDORYZ9584-77-45 06:42:001.19[facility] AND XDTRO0802-97-31 00:01:00 Negative *NA*(12/25/16 6:01 PM)[facility] CURIS4171-75-81 00:01:00 6.0[facility] UTKER5249-96-80 00:01:00Clear (12/25/16 6:01 PM) [facility] ZCXQL1250-93-66 00:01:00Yellow *NA*(12/25/16 6:01 PM) [facility] WWSDL8169-34-43 00:01:001.012[facility] DRPZG6707-12-64 00:01:001[facility] BWNAL9923-80-39 00:01:00 Negative (12/25/16 6:01 PM)[facility] NJLLA2026-93-74 00:01:009 [facility] SLZPV5824-70-00 00:01:00Large *ABN*(12/25/16 6:01 PM) [facility] IAKCB1033-30-37 00:01:00Negative (12/25/16 6:01 PM) [facility]annBACTERIAL - NOHNRLLO0197-37-97 19:53:00Negative (12/25/16 1:53 PM)[facility]annCHE[facility] YJLHX4825-78-01 19:53:0066[facility]annCHEM PANEL 2016-12-25 19:53:008.6[facility]annCHE[facility] SBUWC2511-31-01 19:53:0013.0[facility]annCHEM OVAIB4294-15-34 19:53:004.0[facility]annCHE[facility] JWPKD0083-54-30 19:53:38461Zmlhwcxm HermannCHEM PYKDX2072-63-03 19:53:0024[facility]annCHEM BBVMV9167-58-31 19:53:001.05[facility]annCHE[facility] QMMVT5286-99-43 19:53:0014 [facility]annCHE[facility] CGBGI4134-48-14 19:53:71028Xgmwybpw HermannCHEM PANEL 2016-12-25 19:53:36642Qlmbntkx HermannCHEM JHXQB1802-21-86 19:53:002.4[facility]annCHEM HCAIE8682-91-37 06:16:003.0[facility]annCHEM YJHBL0069-55-58 06:16:001.0[facility]annCHEM NGGFZ4115-81-67 06:16:0010.4[facility]annCHEM LHYMC3442-79-34 06:16:0020[facility]annCHEM ZCWGE6985-02-01 06:16:0062 [facility]annCHE[facility] TGBVI0196-01-45 06:16:0024[facility]annCHEM PANEL 2016-12-25 06:16:005.9[facility]annCHEM QNKIA7649-64-00 06:16:007.9[facility]annCHEM XVHOS5589-15-06 06:16:0012[facility]annCHEM UFLMD2073-32-24 06:16:0015[facility]annCHEM MZAFI2248-31-35 06:16:0051[facility]annCHEM MFHVM6501-05-40 06:16:002.9[facility]annCHEM IISYO3425-81-21 06:16:000.8 [facility]annCHEM NYCKX2626-50-54 06:16:97404Pfxpkegh HermannCHEM PANEL 2016-12-25 06:16:0022[facility]annCHEM DYAWW7274-35-14 06:16:001.11[facility]annCHEM NOCBV0560-22-71 06:16:20329Xoaorzhd HermannCHEM MIYKW3153-11-20 06:16:003.4[facility] HermannCHEM TIMUL7802-28-80 06:16:17773Chcabkfx HermannCHEM KQIJZ0294-13-57 06:16:002.1[facility]annCHEM NIHRR0451-43-92 06:16:002.2 [facility] LhynmueLOGECESZJP3955-57-50 06:16:000.1[facility] HermannHEMATOLOGY 2016-12-25 06:16:000.2[facility] BlfpunoJSYVBIUHQH8661-70-29 06:16:000.7[facility] LvdskqrDOOVCRHTGT2300-68-13 06:16:001.5[facility] HknwxskOVKQSVRUQO9881-34-73 06:16:002.4[facility] QmfblbaEEOYOEQTMS3302-95-17 06:16:006.8[facility] Jair UXTTJOXNNN6754-74-67 06:16:007.7[facility] EiwubclJULJPIUWYB8928-07-43 06:16:001.1 [facility] ApdhsjmFEDDBJKLNA5225-92-87 06:16:0074.9[facility] HermannHEMATOLOGY 2016-12-25 06:16:0014.8[facility] WjfnucrMZAEWMCIRZ8971-77-97 06:16:0034.9[facility] AlkyrloYFUCDXVEDV5066-27-19 06:16:00 Test Item Value Reference Range Interpretation Comments MCH (test code = MCH) 30.8 pg 27.0-31.0 [facility] RkcpozsFSQNRAUIYD8326-77-93 06:16:08403Qqoftfry HermannHEMATOLOGY 2016-12-25 06:16:0014.1[facility] HiynctxWZABKPLCCQ9304-53-76 06:16:004.74[facility] TcvihvpQQMUENJJRE2010-00-61 06:16:0010.3[facility] VgdskxdXFUNAXJDQV1842-63-60 06:16:009.3[facility] UhznxtxZQHBJCDGLU1892-97-60 06:16:0014.6[facility] TPZEWMEWAM7770-71-81 06:16:0088.3[facility] NqadrwaDYFXSXDTJV3378-06-03 06:16:00 41.8[facility] HermannPARATHYROID RJUXEJI2417-07-93 06:16:001.16[facility] Jair PARATHYROID HKSKUJV5646-59-41 06:16:001.17[facility] HermannCHEM KEBEM7447-25-76 18:57:000.2[facility] HermannCHEM ZSEIN0211-46-67 18:57:0051[facility] HermannCHEM NDBDA9763-90-96 18:57:001.0[facility] HermannCHEM QWAPR2588-36-43 18:57:0012 [facility]annCHEM AVTVM1921-63-27 18:57:0013[facility] HermannCHEM PANEL 2016-12-24 18:57:003.1[facility] HermannCHEM ZOZQZ0214-69-51 18:57:006.2[facility] HermannCHEM OOGWR3202-61-19 18:57:003.1[facility] HermannCHEM VEESD4041-54-28 18:57:001.0[facility] HermannCHEM HIGXM0049-41-64 18:57:000.8[facility] SNCAIM3241-70-80 18:57:002.65[facility] LmbqtjoLSCCVX3944-81-07 18:57:0052[facility] OcdivbfDDEYXI7160-00-33 18:57:43140Bgrgdlpt LcrdrepTWTGQN3738-68-50 18:57:0012 [facility] CdyyxsfPFBOWV1688-73-33 18:57:0059[facility] NtitvfyFXFSCP5954-93-72 18:57:0074[facility] HermannSPECIAL MATBOAYLL5724-96-20 18:57:005.1[facility] HermannBLOOD BANK UCMAYWB2301-68-06 17:20:00Negative (12/24/16 11:20 AM)[facility] HermannCHEM BSHSB2073-14-33 17:05:001.1[facility] HermannCARDIAC RCQTUJH7050-14-95 17:01:00<0.02[facility] HermannCARDIAC WJFFQZL5726-36-34 17:01:00<0.5 [facility] HermannCARDIAC GLUOSDT2126-03-10 17:01:0036[facility] HermannCARDIAC MKBKDJL4799-59-53 17:01:00<1.4[facility] ZgcurdmTFKSPFHQOG5779-47-85 17:01:00 Test Item Value Reference Range Interpretation Comments PT (test code = PT) 14.9 s 12.0-14.7 [facility] HqwuiciQKIRUWYDRJ2377-48-55 17:01:001.15[facility] HermannHEMATOLOGY 2016-12-24 17:01:00 Test Item Value Reference Range Interpretation Comments PTT (test code = PTT) 32.1 s 22.9-35.8 [facility] RtlzmxfUYIOZOLDQK5527-45-70 17:01:0089.5[facility] HermannHEMATOLOGY 2016-12-24 17:01:0014.1[facility] GjosczbLNYHNHSIYJ2194-07-73 17:01:0033.6[facility] EuajiplVHJXPNJYKM9534-07-63 17:01:00 Test Item Value Reference Range Interpretation Comments MCH (test code = MCH) 30.1 pg 27.0-31.0 [facility] EkvkbmdAGTEWJDGCP3766-74-70 17:01:008.6[facility] HermannHEMATOLOGY 2016-12-24 17:01:68727Fgahgglr MczgbwwOAICKSIOYI6731-51-41 17:01:0041.7[facility] WeekgxgOLEYLVDZIB8704-22-78 17:01:0014.0[facility] ZgqlfelKBVWSYJPUE1699-75-11 17:01:004.65[facility] AnwfdfpQKVOTHFYTA9342-15-68 17:01:009.3[facility] TVLXBHHKPT8854-83-75 17:01:005.3[facility] QnrlhvvFXQILFVEDR4951-06-71 17:01:002.8 [facility] OmyaxdeHEKZJCBTCX9063-69-55 17:01:000.8[facility] HermannHEMATOLOGY 2016-12-24 17:01:0011.1[facility] YfbwivfIJSAGFBKGR3015-45-16 17:01:000.3[facility] SdnpbbuOSUBJEGVUY9326-49-42 17:01:000.1[facility] UivhknjMZDNJNXXVE6838-15-41 17:01:007.4[facility] OcgbfanHAKATGNXVF2066-85-01 17:01:001.0[facility] ILWOAGYIRA9158-98-74 17:01:000.5[facility] NyiolplEGDCJYPTJS9722-71-02 17:01:00 80.0[facility]
[2021-01-19 12:04] LABS: Basophils % 0.4 % (0-1.3); Hematocrit 47.2 % (39.6-49.0); Lymphocytes % 11.3 % (15.3-44.8); MPV 9.9 fL (7.6-11.3); RBC Red Blood Cell Count 5.25 M/uL (4.33-5.43)
[2021-01-19 12:09] LABS: Protime INR 1.24
[2021-01-19 12:20] LABS: Potassium 4.2 mmol/L (3.5-5.1)
--- NOTE | 2021-01-19 12:37 | RAD REPORT ---
EXAM DESCRIPTION: [facility]ar[facility] Single View01/19/2021 12:22 pm CLINICAL HISTORY: Shortness of breath COMPARISON: January 10, 2021 FINDINGS: Mild bilateral interstitial opacities are unchanged. I suspect most if not all of this is chronic. The heart is normal size
--- NOTE | 2021-01-19 13:33 | ER ---
Nurse's Notes [facility] Name: Madi Manning Age: 85 yrs Sex: Male : 1935 Arrival Date: 01/19/2021 Time: 11:10 Bed 2 Private MD: Goyo Salazar V Diagnosis: Dehydration;Atrial fibrillation and flutter Presentation: 01/19 11:17 Chief complaint: Patient states: was seen here a couple weeks ago and is feels like iw he's getting SOB again, feel like he has fluid in his lungs again. Coronavirus screen: At this time, the client does not indicate any symptoms associated with coronavirus-19. Ebola Screen: Patient negative for fever greater than or equal to 101.5 degrees Fahrenheit, and additional compatible Ebola Virus Disease symptoms Patient denies exposure to infectious person. Patient denies travel to an Ebola-affected area in the 21 days before illness onset. No symptoms or risks identified at this time. Initial Sepsis Screen: Does the patient meet any 2 criteria? No. Patient's initial sepsis screen is negative. Does the patient have a suspected source of infection? No. Patient's initial sepsis screen is negative. Risk Assessment: Do you want to hurt yourself or someone else? Patient reports no desire to harm self or others. Onset of symptoms was January 17, 2021. 11:17 Method Of Arrival: Wheelchair iw 11:17 Acuity: JOLANTA 3 iw Historical: - Allergies: 11:19 No Known Allergies; iw - Home Meds: 11:19 Benicar Oral [Active]; Eliquis 5 mg Oral tab daily [Active]; gabapentin Oral as needed iw [Active]; losartan 25 mg Oral tab once daily [Active]; sotalol 80 mg Oral tab daily [Active]; - PMHx: 11:19 Atrial Fib; CVA; 12/2015; enlarged prostate; Hypertension; Kidney stones; bladder iw cancer; - PSHx: 11:19 back sx; prostate sx; Hernia repair; iw - Immunization history:: Adult Immunizations up to date. - Social history:: Smoking status: Patient/guardian denies using tobacco, but has a distant history of tobacco abuse. - Family history:: not pertinent. - Hospitalizations: : No recent hospitalization is reported. Screenin:30 Abuse screen: Denies threats or abuse. Denies injuries from another. Nutritional jl7 screening: No deficits noted. Tuberculosis screening: No symptoms or risk factors identified. Fall Risk IV access (20 points). Total Sandoval Fall Scale indicates No Risk (0-24 pts). Assessment: 11:30 General: Appears in no apparent distress. uncomfortable, Behavior is calm, cooperative, jl7 appropriate for age. Pain: Denies pain. Neuro: Level of Consciousness is awake, alert, obeys commands, Oriented to person, place, time, situation. Cardiovascular: Denies chest pain, palpitations, Patient's skin is warm and dry. Rhythm is atrial fibrillation. Respiratory: Airway is patent Respiratory effort is even, labored, Respiratory pattern is symmetrical, tachypnea Breath sounds are diminished bilaterally. the patient has mild shortness of breath. Derm: Skin is pink, warm \T\ dry. 12:30 Reassessment: Patient appears in no apparent distress at this time. No changes from jl7 previously documented assessment. Patient and/or family updated on plan of care and expected duration. Pain level reassessed. Patient is alert, oriented x 3, equal unlabored respirations, skin warm/dry/pink. 13:30 Reassessment: Patient appears in no apparent distress at this time. No changes from jl7 previously documented assessment. Patient and/or family updated on plan of care and expected duration. Pain level reassessed. Patient is alert, oriented x 3, equal unlabored respirations, skin warm/dry/pink. 14:03 Reassessment: attempted to call pt's for discharge, no answer, message left. Pt jl7 will be discharged once fluids are done infusing. Vital Signs: 11:17 BP 119 / 75; Pulse 75; Resp 16; Temp 97.9; Pulse Ox 97% on R/A; Weight 99.79 kg; Height iw 6 ft. 0 in. (182.88 cm); 12:47 BP 110 / 67; Pulse 68; Resp 19; Pulse Ox 98% ; jl7 13:32 BP 110 / 63; Pulse 69; Resp 18; Pulse Ox 99% on R/A; dh4 14:18 BP 110 / 65; Pulse 70; Resp 18; Pulse Ox 99% ; jl7 11:17 Body Mass Index 29.84 (99.79 kg, 182.88 cm) ED Course: 11:10 Patient arrived in ED. ag5 11:11 Goyo Salazar MD is Private Physician. ag5 11:18 Triage completed. iw 11:20 Arm band placed on. iw 11:25 Juve Powell MD is Attending Physician. rn 11:28 David Damon, JAYASHREE is Primary Nurse. jl7 11:30 Patient has correct armband on for positive identification. Bed in low position. Call jl7 light in reach. Side rails up X 1. surveillance monitor on. Pulse ox on. NIBP on. Warm blanket given. 11:40 Initial lab(s) drawn, by ak, sent to lab. Inserted saline lock: 20 gauge in right jl7 antecubital area, using aseptic technique. Blood collected. 11:48 EKG done, by ED staff, reviewed by Juve Powell MD. em1 12:22 XRAY CXR (1 view) In Process Unspecified. EDMS 13:30 No provider procedures requiring assistance completed. jl7 13:32 Goyo Salazar MD is Referral Physician. rn 14:18 IV discontinued, intact, bleeding controlled, No redness/swelling at site. Pressure jl7 dressing applied. Administered Medications: 13:19 Drug: NS 0.9% 500 ml Route: IV; Rate: bolus; Site: right antecubital; jl7 14:15 Follow up: IV Status: Completed infusion; IV Intake: 500ml jl7 Intake: 14:15 IV: 500ml; Total: 500ml. jl7 Outcome: 13:33 Discharge ordered by . rn 14:18 Discharged to home via wheelchair. jl7 14:18 Condition: stable 14:18 Discharge instructions given to patient, Instructed on discharge instructions, follow up and referral plans. Demonstrated understanding of instructions, follow-up care. 15:00 Patient left the ED. zb Signatures: Dispatcher [employer] EDMS Alexandra Montemayor, Juve Whiteside RN, MD MD rn Martinez, Eric em1 David Damon RN RN jl7 Juan Lim [facility] Juan Jose Lezama Alka Langley RN RN zb
[2021-01-19] MEDS ORDERED: NA CHLORIDE 0.9% 500 ML ONE (13:34)
--- NOTE | 2021-01-19 13:34 | EDPHYS ---
Physician Documentation [facility] Name: Madi Manning Age: 85 yrs Sex: Male : 1935 Arrival Date: 01/19/2021 Time: 11:10 Bed 2 Private MD: Goyo Salazar V ED Physician Juve Powell HPI: 01/19 11:49 This 85 yrs old Male presents to ER via Wheelchair with complaints of rn Breathing Difficulty, Shortness Of Breath. 11:49 The patient has shortness of breath with light activity. rn 11:49 Onset: The symptoms/episode began/occurred 3 day(s) ago. Duration: The symptoms are rn intermittent. The patient's shortness of breath is aggravated by exertion, is alleviated by rest. Associated signs and symptoms: Pertinent negatives: chest pain, fever, hemoptysis, vomiting. Severity of symptoms: At their worst the symptoms were moderate in the emergency department the symptoms are unchanged. The patient has experienced a previous episode. The patient has not recently seen a physician. Reports 2-3 days of intermittent dyspnea, worse with exertion or "any activity", improves with rest. States admitted recently for similar problem, told had fluid in lungs. Reports bladder cancer with chronic hematuria, has left nephrostomy tube. No fever. Doesn't feel sick. No productive cough. No abd pain/vomiting/diarrhea. Does not take blood thinners. . Historical: - Allergies: 11:19 No Known Allergies; iw - Home Meds: 11:19 Benicar Oral [Active]; Eliquis 5 mg Oral tab daily [Active]; gabapentin Oral as needed iw [Active]; losartan 25 mg Oral tab once daily [Active]; sotalol 80 mg Oral tab daily [Active]; - PMHx: 11:19 Atrial Fib; CVA; 12/2015; enlarged prostate; Hypertension; Kidney stones; bladder iw cancer; - PSHx: 11:19 back sx; prostate sx; Hernia repair; iw - Immunization history:: Adult Immunizations up to date. - Social history:: Smoking status: Patient/guardian denies using tobacco, but has a distant history of tobacco abuse. - Family history:: not pertinent. - Hospitalizations: : No recent hospitalization is reported. ROS: 11:49 Constitutional: Negative for fever, chills Eyes: Negative for injury, pain, redness, rn and discharge, Neck: Negative for injury, pain, and swelling, Cardiovascular: Negative for chest pain, palpitations, and edema, Respiratory: Negative for cough, wheezing, and pleuritic chest pain, Abdomen/GI: Negative for abdominal pain, nausea, vomiting, diarrhea, and constipation, Back: Negative for injury and pain, MS/Extremity: Negative for injury and deformity, Skin: Negative for injury, rash, and discoloration, Neuro: Negative for headache, numbness, tingling, and seizure. Exam: 11:47 ECG was reviewed by the Attending Physician. rn 11:49 Constitutional: This is a well developed, well nourished patient who is awake, alert, rn and in no acute distress. Head/Face: Normocephalic, atraumatic. ENT: No stridor Cardiovascular: Irregular rhythm, regular rate Respiratory: Diminished breath sounds bilateral bases, no retractions. No increased work of breathing, no retractions or nasal flaring. Abdomen/GI: soft, non-tender Male : No gross blood in urine collection bag. Skin: Warm, dry MS/ Extremity: Pulses equal, no cyanosis. Neurovascular intact. Full, normal range of motion. Equal circumference. Neuro: Awake and alert, GCS 15 Vital Signs: 11:17 BP 119 / 75; Pulse 75; Resp 16; Temp 97.9; Pulse Ox 97% on R/A; Weight 99.79 kg; Height iw 6 ft. 0 in. (182.88 cm); 12:47 BP 110 / 67; Pulse 68; Resp 19; Pulse Ox 98% ; jl7 13:32 BP 110 / 63; Pulse 69; Resp 18; Pulse Ox 99% on R/A; dh4 14:18 BP 110 / 65; Pulse 70; Resp 18; Pulse Ox 99% ; jl7 11:17 Body Mass Index 29.84 (99.79 kg, 182.88 cm) iw MDM: 11:25 Patient medically screened. rn 13:30 Differential diagnosis: Anemia Anxiety Reaction Myocardial Infarction pneumonia, rn Pneumothorax pulmonary edema, reactive airway disease. Data reviewed: vital signs, nurses notes, lab test result(s), EKG, radiologic studies, plain films, and as a result, I will discharge patient. Counseling: I had a detailed discussion with the patient and/or guardian regarding: the historical points, exam findings, and any diagnostic results supporting the discharge/admit diagnosis, lab results, radiology results, the need for outpatient follow up, to return to the emergency department if symptoms worsen or persist or if there are any questions or concerns that arise at home. Response to treatment: the patient's symptoms have mildly improved after treatment, and as a result, I will discharge patient. Special discussion: I discussed with the patient/guardian in detail that at this point there is no indication for admission to the hospital. It is understood, however, that if the symptoms persist or worsen the patient needs to return immediately for re-evaluation. ED course: No acute findings other than mild dehydration, not anemic, cxr with chronic findings, BNP normal, ECG for aflutter/afib, has hx of afib, already on eliquis and sotalol, is rate controlled, will dc home with return precautions and f/u with Dr. Salazar. Afebrile and no infective symptoms. . 01/19 11:32 Order name: BMP; Complete Time: 12:01/19 11:32 Order name: CBC with Diff; Complete Time: 01/19 11:32 Order name: NT PRO-BNP; Complete Time: 1201/19 11:32 Order name: PT-INR; Complete Time: 01/19 11:32 Order name: Ptt, Activated; Complete Time: 01/19 11:32 Order name: XRAY CXR (1 view); Complete Time: 12:01/19 11:32 Order name: EKG; Complete Time: 11:01/19 11:32 Order name: Cardiac monitoring; Complete Time: 01/19 11:32 Order name: EKG - Nurse/Tech; Complete Time: 1101/19 11:32 Order name: IV Saline Lock; Complete Time: 01/19 11:32 Order name: Labs collected and sent; Complete Time: 01/19 11:32 Order name: O2 Per Protocol; Complete Time: 01/19 11:32 Order name: O2 Sat Monitoring; Complete Time: 11: rn EC:47 Rate is 72 beats/min. Rhythm is irregular. QRS [place] is Normal. QRS interval is normal. rn QT interval is normal. No Q waves. T waves are Normal. No ST changes noted. Clinical impression: Atrial Flutter. Interpreted by me. Reviewed by me. Administered Medications: 13:19 Drug: NS 0.9% 500 ml Route: IV; Rate: bolus; Site: right antecubital; jl7 14:15 Follow up: IV Status: Completed infusion; IV Intake: 500ml jl7 Disposition: 01/19/21 13:33 Discharged to Home. Impression: Dehydration, Atrial fibrillation and flutter. - Condition is Stable. - Discharge Instructions: Atrial Fibrillation, Dehydration, Adult, Atrial Flutter. - Medication Reconciliation Form, Thank You Letter, Antibiotic Education, Prescription Opioid Use form. - Follow up: Goyo Salazar MD; When: As needed; Reason: Recheck today's complaints, Re-evaluation by your physician. - Problem is new. - Symptoms have improved. Signatures: Dispatcher [employer] EDKS Alexandra Montemayor, RN Juve Whiteside MD MD rn Leal, Jahala, RN RN jl7 Brown, Zipporah, RN RN zb Corrections: (The following items were deleted from the chart) 11:39 11:33 TROPONIN (EMERG DEPT USE ONLY)+C.LAB.BRZ ordered. [facility] EDKS 15:00 13:33 01/19/2021 13:33 Discharged to Home. Impression: Dehydration; Atrial fibrillation zb and flutter. Condition is Stable. Forms are Medication Reconciliation Form, Thank You Letter, Antibiotic Education, Prescription Opioid Use. Follow up: Goyo Salazar; When: As needed; Reason: Recheck today's complaints, Re-evaluation by your physician. Problem is new. Symptoms have improved. rn
[2021-01-19 15:31] VITALS: TEMP 97.9
[2021-01-19 15:34] VITALS: O2SAT 99
[2021-01-19 15:35] VITALS: BP 110/65
== END 2021-01-19 15:00 | disposition home or self-care (01) ==
LOC: ER 11:09
DX: E86.0 Dehydration (principal); I48.91 Unspecified atrial fibrillation; I48.92 Unspecified atrial flutter; I10 Essential (primary) hypertension; Z79.01 Long term (current) use of anticoagulants; Z85.51 Personal history of malignant neoplasm of bladder
CPT/HCPCS: 85025; 80048; 36415; 85610; 85730; 83880; 71045; 96360; 99284; J7040

== ENCOUNTER 2021-02-17 10:02 | Emergency (ER) | payer OTHER, MEDICARE ==
--- OUTSIDE RECORDS SUMMARY | 2021-02-17 10:12 | XMS REPORT | Continuity of Care Document ---
:1935 Author Organization [facility] t Address [address] [place] [address] Care Team Providers Name Role Phone ANANDA Primary Care Physician Unavailable SYSTEM, NOT IN Attending Clinician Unavailable Ananda MONAE Attending Clinician ANANDA Attending Clinician Unavailable Elías Hurtado APN Attending Clinician MARA Attending Clinician Unavailable Jose MONAE Attending Clinician Adama MONAE Attending Clinician Jose MONAE Attending Clinician Riley MONAE Attending Clinician Keyona MONAE Y Attending Clinician Mara MONAE Attending Clinician Kirt PROGRAM MANAGEMENT SPECIALIST, S Attending Clinician Flex YORK Attending Clinician Unavailable JOSE Attending Clinician Unavailable GELACIO Attending Clinician Unavailable TOMMY Attending Clinician Unavailable Tommy NATARAJAN Attending Clinician David MOSES, R. Attending Clinician DAI Attending Clinician Unavailable Terry Attending Clinician Unavailable ADAMA Attending Clinician Unavailable Digna Montemayor Attending Clinician Unavailable Reginald BLANC, W Attending Clinician Unavailable Quentin PATTEN Attending Clinician Jeanmarie HARRY Attending Clinician Bennett Burks Attending Clinician ROHITH Attending Clinician Unavailable Rohith MONAE Attending Clinician Erica Sales Attending Clinician Elías HURATDO Attending Clinician Unavailable Sheldon Escobar RN Attending Clinician Unavailable RIOS, Leeanne Attending Clinician Unavailable Rios MONAE, Leeanne Attending Clinician Bronson BLANC MSN Attending Clinician Unavailable Quentin BLANC, Jaylene Attending Clinician Unavailable Mk BLANC, O Attending Clinician Unavailable YUAN ROSARIO Attending Clinician Unavailable Yuan Rosario MD Attending Clinician Giig MONAE Attending Clinician Yany BLANC Attending Clinician Unavailable Elías Galan Attending Clinician JOSSELIN Attending Clinician Unavailable Josselin HARRY Attending Clinician Sheila MONAE Attending Clinician SHEILA Attending Clinician Unavailable Te Elaine Attending Clinician Sushila Russo RN, Brayan Attending Clinician Unavailable Ladonna Jacobs MD Attending Clinician Aquiles Willingham MD Attending Clinician Nydia MONAE Attending Clinician Dorothy Wilson MD Attending Clinician Camila Perdomo MD Attending Clinician Laurie Borden MD Attending Clinician NYDIA Attending Clinician Unavailable Arelis Zepeda Attending Clinician ADAMA Admitting Clinician Unavailable DOROTHY WILSON Admitting Clinician Unavailable Arelis Zepeda Admitting Clinician Payers Payer Name Policy Type Policy Effective Date Expiration Date Sour Number MEDICAREMEDICARE PART [id number] 2000 MD Killian Schmidt AND 00:00:00 [id number] 2000- [phone] [place] [employer] [id number] 2019 MD Daily OF RETIRED 00:00:00 PERSONSAARP-SECONDARY [id number] 19-PresentMedigap MEDICAREMEDICARE A [id number] [id number] 2000- 00:00:00 - M edical [facility] MCR [id number] [facility]una SUPPLEMENT/INDIVIDUAL 00:00:00 - M edical A[id number] 2019-PresentMedig ap Problems Condition Condition Condition Status Onset Resolution Last Treating Co mments Source Name Details Category Date Date Treatment Clinician Date 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 3-10 Nghia rso sensory sensory 00:00: n neuropathy neuropathy 00 Lumbar Lumbar Disease Active radiculopa radiculopa 3-10 An derso thy thy 00:00: n 00 Bacteriuri Bacteriuri Disease Active M D a a 3-06 Anderso 00:00: n 00 Severe Severe Disease Active protein-ca protein-ca 3-01 An derso zachary zachary 00:00: n malnutriti malnutriti 00 on on Paroxysmal Paroxysmal Disease Active M D atrial atrial 2-27 Anderso fibrillati fibrillati 00:00: n on on 00 Other Other Disease Active acute acute 2-26 Anderso myocarditi myocarditi 00:00: n s s 00 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 00:00: n ureter ureter 00 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 1-13 An derso disease disease 00:00: n 00 Secondary Secondary Disease Active and and 1-13 Anderso unspecifie unspecifie 00:00: n d d 00 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, node, unspecifie unspecifie d d Hypertensi Hypertensi Disease Active 2019-11 M D ve chronic ve chronic 2-16 An derso kidney kidney 00:00: n disease disease 00 stage 3 stage 3 Personal Personal Disease Active 2019-11 history of history of 2-16 An derso stroke stroke 00:00: n 00 Pelvic Pelvic Disease Active 2019-11 lymphadeno lymphadeno 2-16 An derso abraham abraham 00:00: n 00 Benign Benign Disease Active 2019-[address] [facility] essential essential 12-26 [facility] - HTN HTN 00:00: Medical 00 [place] Chronic Chronic Disease Active 2019-[address] [facility] atrial atrial 12-26 [facility] fibrillati fibrillati [facility]: Me dical on Center Gross Gross Disease Active 2019-[address] [facility] hematuria hematuria 12-26 [facility] - 00:00: Medical 00 [place] Urinary Urinary Disease Active 2019-[address] [facility] [address] retention retention 12-26 [facility] - 00:00: Medical 00 [place] STROKE Diagnosis Active 2016-12-30 Mem oria 12-24 22:04:00 l STROKE 00:00: Jair 00 Active 12/24/2016 [facility] LF Diagnosis Active 2016-12-24 Mem oria 12-24 12:52:00 l LF 00:00: [place] 00 Active 12/24/2016 [facility] Irregular Irregular Disease Active heart beat heart beat 11-30 An derso 00:00: n 00 Hypertensi Hypertensi Disease Active M D on 11-30 Anderso 00:00: n 00 Hyperlipid Problem Resolve 2016-12-29 Memoria emia d 03:48:45 l (disorder) Jose sherman Hyperlipid emia (disorder) Resolved Problem 12/29/2016 [facility] CEREBRAL Diagnosis Active 2016-12-30 M emoria INFARCTION 22:04:00 l , CEREBRAL Jose n UNSPECIFIE INFARCTION D , UNSPECIFIE D Active [facility] Primary Primary Disease Active urothelial urothelial An [...] Date Source Natural father No Known Problem [facility] Natural father Prostate cancer MD Nancy kincaid Natural mother No Known Problem [facility] Natural brother Heart attack MD Nghia gardiner Natural brother Heart disease MD Ramos erson Natural sister Breast cancer MD Nghia gardiner Natural son Kidney cancer MD Micki sherman Natural son Brain cancer MD Daily Natural son Lung cancer MD Daily Social History Social Habit Start Date Stop Date Quantity Comments Source History of tobacco 1960-01-29 Current smoker MD Daily use 00:00:00 Exposure to Not sure MD Daily SARS-CoV-2 (event) Sex Assigned At [facility] Cigarettes smoked 2021-01-28 2021-01-28 MD Nghia gardiner current (pack per 00:00:00 00:00:00 day) - Reported Tobacco use and 2021-01-28 2021-01-28 Never used MD Akhtar on exposure 00:00:00 00:00:00 Alcohol intake 2021-01-28 2021-01-28 Ex-drinker MD Micki sherman 00:00:00 00:00:00 (finding) Tobacco Comment 2020-11-14 2020-11-14 Have not smoked MD Brayan puentes 00:00:00 00:00:00 in 50 years Smoking Status Start Date Stop Date Source Former smoker 2021-01-28 00:00:00 2021-01-28 00:00:00 Dayo sonam Social History [facility] Medications Ordered Filled Start Stop Current Ordering Indication Dosage Frequency Signature Comments Components Source Medication Medication Date Date Medication? Clinician (SIG) Name Name losartan Yes 100mg Take 100 MD (COZAAR) 3-10 mg by Anderso 100 mg 03:23: mouth n tablet 27 daily. pregabalin Yes 225mg Take 225 MD (LYRICA) 3-09 mg by Anderso 225 mg 22:41: mouth n capsule 22 twice daily. gabapentin Yes 600mg Take 600 MD (NEURONTIN) 3-09 mg by Anderso 300 mg 22:41: mouth n capsule 22 daily as needed (severe nerve pain). Patient takes in addition to pregabalin when nerve pain is very severe. traMADol Yes 50mg Take 50 mg MD (ULTRAM) 50 3-09 by mouth Nghia rso mg tablet 22:41: every 8 n 22 (eight) hours as needed (pain). apixaban 2.5mg Take 2.5 MD (ELIQUIS) 02-05-09 mg by Anderso 2.5 mg 19:53: 00:00 mouth n tablet 56 :00 every 12 (twelve) hours. sotalol 2020- No 80mg Take 80 mg MD (BETAPACE) 02-05 by mouth Nghia rso 80 mg 19:53: 00:00 twice n tablet 56 :00 daily. amLODIPine 2020- No 10mg Take 10 mg MD (NORVASC) 02-05 by mouth Dayo so 10 mg 19:52: 00:00 daily. n tablet 36 :00 sotalol Yes Primary NOTE MD (BETAPACE) 02-05 urothelial 02/05/21: Anderso 80 mg 00:00: carcinoma Per n tablet 00 of Cardiology overlapping , continue lesion of to hold urinary sotalol. organ apixaban Yes Primary NOTE MD (ELIQUIS) 02-05 urothelial 02/05/21: A nderso 2.5 mg 00:00: carcinoma Per n tablet 00 of Cardiology overlapping , continue lesion of to hold urinary apixaban. organ predniSONE Yes Starting MD (DELTASONE) 02-05 on 02/06, Nghia rso 10 mg 00:00: take 5 n tablet 00 tablets (50 mg) by mouth daily for 4 days. On 02/10, take 3.5 tablets (35 mg) by mouth daily for 7 days. Then stop. pantoprazol Yes 40mg Take 1 MD e - tablet (40 Anderso (Protonix) 00:00: mg) by n 40 mg EC 00 mouth tablet daily. Start on 02/06 and continue until prednisone course has finished. polyethylen Yes constipatio 17g Take 17 g MD e glycol 3-09 n by mouth Anderso (MIRALAX) 00:00: daily. n 17 g packet 00 Dissolve in 4-8 ounces of liquid and drink. senna-docus Yes constipatio 2{tbl} Take 2 MD ate 3-09 n tablets by Anderso (SENOKOT-S) 00:00: mouth n 8.6 mg-50 00 twice mg tablet daily. calamine-me Yes Primary Apply thin ntcyrus-zinc 02-05 urothelial layer to Anderso oxide 00:00: carcinoma affected n (REMEDY 00 of areas of CALAZIME overlapping skin on PROTECT) lesion of bilateral 3.5%-0.2%-1 urinary inner 6.5% pste organ buttocks topical twice a paste day. nystatin 2020- No oral [id number] John Paul (MYCOSTATIN 02-05 03-16 candidiasis spit 5 mL Anderso ) 100,000 00:00: 04:59 (500,000 n units/mL 00 :00 Units) 4 suspension (four) times a day for 6 days. gabapentin 2019-11 Yes 400mg Take [address] [facility] [address] (NEURONTIN) 2-03 mg by [facility] - 400 MG 13:14: mouth as Medical capsule 09 needed . [place] sotaloL 2019-11 Yes 80mg Take 80 mg [...] 10mg QD Take [address] [facility] (NORVASC) 2- 02- tablet (10 Esha es - 10 MG 00:00: 23:59 mg total) Medica l tablet 00 :00 by mouth Center daily for 60 days. cefdinir 2019-11- No 300mg Q.5D Take [facility] (OMN[facility] 01-02 12 capsule [facility] - 300 MG 00:00: 23:59 (300 mg Medical capsule 00 :00 total) by Center mouth 2 (two) times daily for 5 days. amLODIPine 2019-11- No 10mg QD Take [address] [facility] (NORVASC) 01-02 tablet (10 Esha es - 10 MG 00:00: 00:00 mg total) Medica l tablet 00 :00 by mouth Center daily for 60 days. losartan-hy 2019-11- No 1{tbl} Take [address] drochloroth 12-26 tablet by Binta mcmahon 23:34: 00:00 mouth. Medical (HYZAAR) 09 :00 Center 100-12.5 mg per tablet Hydrochloro No 1 tab, PO, Memoria thiazide 12-26 Daily, 0 l 12.5 MG / 18:12: Refill(s) Her wiseman Losartan 00 Potassium 100 MG Oral Tablet Eliquis No Notes: Memoria 12-26 Same as: l 15:17: Eliquis Jair ciprofloxac Yes 250 mg = 1 Memoria in 250 mg 12-26 tab, PO, l oral tablet 15:12: Q12H, X 3 H erm day, # 6 tab, 0 Refill(s) Occupationa Yes See Memori a l Therapy 12-26 Instructio l 15:12: ns, Jair BOONE 00 ONCALL, Evaluate and Treat DX: R MCA ischemic stroke, # 1 appl, 0 Refill(s) Physical Yes See Memoria Therapy 12-26 Instructio l 15:09: ns, Jair BOONE 00 ONCALL, outpatient physical therapy Dx: right MCA stroke, # 1 appl, 0 Refill(s) apixaban 5 Yes 5 mg = 1 Mem oria MG Oral 12-26 tab, PO, l Tablet 15:03: BID, # 60 Jose n [Eliquis] 00 tab, 3 Refill(s) ciprofloxac No 250 mg = 1 Memoria in 250 mg 12-26 tab, PO, l oral tablet 15:03: Q12H, X 10 [place] 00 day, # 20 tab, 0 Refill(s) atorvastati Yes 40 mg = 1 M emoria n 40 mg 12-26 tab, PO, l oral tablet 15:03: Bedtime, # [place] 00 30 tab, 3 Refill(s) sotalol 80 Yes 40 mg = Uri marlon mg oral 12-26 0.5 tab, l tablet 15:03: PO, Jair 00 Bedtime, # 30 tab, 3 Refill(s) Rocephin No Notes: Memoria 12-26 (Same As: l 13:00: Rocephin). [place] 00 Use with 100 mL NS and infuse over 30 min MEDICATION WASTE Product Size: 1000 mg Product Wasted: ___ mg Sotalol No 40 mg, Memoria Hydrochlori 12-26 Route: PO, l de 80 MG 03:00: Q12H, Jair Oral Tablet 00 Dosing Weight 100, kg, Start date: 12/25/16 21:00:00 EDGE BANDING MACHINE OFFBEARER, Duration: 30 day, Stop date: 01/24/17 9:00:00 EDGE BANDING MACHINE OFFBEARER sotalol No Notes: Memoria 12-26 (Same As: l 03:00: Betapace) [place] 00 40 mg = 1/2 x 80 mg TAB pneumococca No Notes: Uri marlon l 13-valent 12-26 (Same as: l vaccine 00:00: Prevnar Jair 00 13) gabapentin No Notes: Memor ia 400 MG Oral 12-25 (Same as: l Capsule 15:00: Neurontin) Herm mariah 00 Aspirin 325 No Notes: (Do Memoria MG Enteric 12-25 Not Crush) l Coated 15:00: Do not Jair Tablet 00 crush or chew. Streptococc No Notes: Uri marlon us 12-25 (Same as: l pneumoniae 15:00: Prevnar Herm mariah serotype 1 00 13) capsular antigen diphtheria [id number] protein conjugate vaccine / Streptococc us pneumoniae serotype 14 capsular antigen diphtheria [id number] protein conjugate vaccine / Streptococc us pneumoniae serotype 18C capsular antigen d gabapentin No Notes: Memor ia 400 MG Oral 12-25 (Same as: l Capsule 05:47: Neurontin) Herm mariah Saline No Notes: Memoria Flush 0.9% 12-25 (Same as: l 03:00: BD Jair 00 Posiflush) Docusate No Notes: Memoria 12-25 (Same as: l 03:00: Colace) [place] 00 (Do Not Crush) atorvastati No Notes: Uri marlon n 12-25 (Same as: l 03:00: Lipitor) [place] 00 pneumococca No Notes: Uri marlon l 13-valent 12-25 (Same as: l vaccine 00:00: Prevnar [place] 13) sennosides, No Notes: Uri marlon LONGTERM 25 (Same as: l 23:00: Senokot) heparin No Notes: Memoria sodium, 1-25 porcine l porcine 22:00: heparin [place] 2500 UNT/ML 00 Injectable Solution Dextrose No 25 gm, 50 Uri marlon 50% Syringe 1-25 mL, Route: l 21:18: IVP, Drug [place] 00 Form: INJ, Dosing Weight 100, kg, PRN, PRN Blood Glucose Results, Start date: 12/24/16 15:18:00 ED[employer] BANDING MACHINE OFFBEARER, Duration: 30 day, Stop date: 01/23/17 15:17:00 ED[employer] BANDING MACHINE OFFBEARER Glucagon No 1 mg, Memoria 1-25 Route: IM, l 21:18: Drug form: Jair PDR/INJ, PRN, Dosing Weight 100, kg, PRN Blood Glucose Results, Start date: 12/24/16 15:18:00 ED[employer] BANDING MACHINE OFFBEARER, Duration: 30 day, Stop date: 01/23/17 15:17:00 EDGE BANDING MACHINE OFFBEARER sodium No 30 mmol, Memoria phosphate + 1-25 10 mL, l sodium 21:18: Route: [place] chloride 00 IVPB, PRN, 0.9% INJ Dosing 250 mL Weight 100, kg, PRN Abnormal Lab Result, Start date: 12/24/16 15:18:00 EDGE BANDING MACHINE OFFBEARER, Duration: 30 day, Stop date: 01/23/17 15:17:00 EDGE BANDING MACHINE OFFBEARER, FOR ICU USE ONLY potassium No Notes: Memori a chloride 1-25 (Same as: l 21:18: KCL) Jair 00 Infuse over 2 hours. Calcium No Notes: Memoria Gluconate 1-25 WASTE: F/P l 21:18: - Sink; E [place] - Municipal Trash Bin Calcium No Notes: Memoria Carbonate 1-25 (Same As: l 500 MG 21:18: Tums) [place] Chewable 00 Calcium Tablet Carbonate 500 mg = 200 mg elemental calcium Dose = mg calcium carbonate ( mg elemental calcium) Magnesium No Notes: Memori a Oxide 1-25 (Same as: l 21:18: Mag-Ox Jair 00 400) Magnesium oxide 241il=715h g elemental magnesium Dose=____m g magnesium oxide (___mg elemental magnesium) potassium No Notes: Memori a phosphate + 1-25 (Same as: l sodium 21:18: K Jair chloride 00 Phosphate. 0.9% INJ ) 1 mMol 250 mL phoshate has 1.47 mEq potassium Infuse over 4 hours potassium No Notes: Memori a phosphate-s 1-25 (Same as: l odium 21:18: Phos-NaK) Jair phosphate 00 Each 1.5 250 mg-280 gm pkt has mg-160 mg 250mg oral powder phosphorou for s. Mix reconstitut w/2.5oz ion water and stir. Magnesium No Notes: Memori a Sulfate 1-25 WASTE: F/P l 21:18: - Sink; E Jair - Municipal Trash Bin sotalol 80 No 80 mg = 1 Me moria mg oral 1-25 tab, PO, l tablet 21:11: Daily, 0 [place] 00 Refill(s) gabapentin Yes 400 mg = 1 M emoria 400 MG Oral 1-25 cap, PO, l Capsule 21:10: TID, # 90 Cassy nn 00 cap, 1 Refill(s) tramadol Yes 50 mg = 1 Uri marlon hydrochlori 1-25 tab, PO, l de 50 MG 21:09: BID, # 30 Herm mariah Oral Tablet 00 tab, 0 Refill(s) sodium 2017-0 No 1,000 mL, Memori a chloride 1-25 Rate: 75 l 0.9% 1000 20:56: ml/hr, Jose n ml INJ 00 Infuse 1,000 mL over: 13.3 hr, Route: IV, Dosing Weight 100 kg, Total Volume: 1,000, Start date: 12/24/16 14:56:00 [employer] B[employer]ING MACHINE OFFBEARER, Duration: 30 day, Stop date: 01/23/17 14:55:00 ED[employer] B[employer]ING MACHINE OFFBEARER Flumazenil 2017-0 No 0.2 mg, Uri marlon - Route: l 18:56: IVP, PRN, Jair 00 Dosing Weight 100, kg, PRN Benzodiaze pine Reversal, Initial dose, Start date: 12/24/16 12:56:00 [employer] B[employer]ING MACHINE OFFBEARER, Duration: 30 day, Stop date: 01/23/17 12:55:00 ED[employer] B[employer]ING MACHINE OFFBEARER Naloxone 2017-0 No 0.4 mg, Memori a 25 Route: l 18:56: IVP, [place] 00 Q2MIN, Dosing Weight 100, kg, PRN Narcotic Reversal, Start date: 12/24/16 12:56:00 ED[employer] B[employer]ING MACHINE OFFBEARER, Duration: 8 doses or times, Stop date: Limited # of times Ondansetron 2017-0 No 4 mg, Memor ia 12-24 Route: l 18:56: IVP, ONCE, [place] 00 Dosing Weight 100, kg, PRN Nausea & Vomiting, Start date: 12/24/16 12:56:00 ED[employer] B[employer]ING MACHINE OFFBEARER Hydromorpho 2017-0 No 0.5 mg, Mem oria ne 12-24 Route: l 18:56: IVP, [place] 00 Q5Min, Dosing Weight 100, kg, PRN Pain Score 7-10, Start date: 12/24/16 12:56:00 [employer] B[employer]ING MACHINE OFFBEARER, Duration: 4 doses or times, Stop date: Limited # of times Hydralazine 2017-0 No 10 mg, Uri marlon 1-25 Route: l 18:56: IVP, [place] 00 Q20Min, Dosing Weight 100, kg, PRN Elevated BP, Start date: 12/24/16 12:56:00 ED[employer] B[employer]ING MACHINE OFFBEARER, Duration: 2 doses or times, Stop date: Limited # of times Labetalol 2017-0 No 10 mg, Memori a 1-25 Route: l 18:56: IVP, [place] 00 Q5Min, Dosing Weight 100, kg, PRN Elevated BP, Start date: 12/24/16 12:56:00 ED[employer] B[employer]ING MACHINE OFFBEARER, Duration: 5 doses or times, Stop date: Limited # of times Saline 2016-0 No Notes: Memoria Flush 0.9% 1-25 (Same as: l 18:28: BD [place] 00 Posiflush) Sodium 2017-0 No 1,000 mL, Memori a Chloride 1-25 Rate: 75 l 0.154 18:28: ml/hr, [place] MEQ/ML 00 Infuse Injectable over: 13.3 Solution hr, Route: IV, Dosing Weight 100 kg, Total Volume: 1,000, Start date: 12/24/16 12:28:00 ED[employer] B[employer]ING MACHINE OFFBEARER, Duration: 30 day, Stop date: 01/23/17 12:27:00 ED[employer] BANDING MACHINE OFFBEARER Omnipaque 2017-0 No 150 ml, Memor ia 300 1-25 Route: l 17:54: INTRAARTER [place] 00 IAL, Dosing Weight 100, kg, ONCE, Start date: 12/24/16 11:54:00 ED[employer] B[employer]ING MACHINE OFFBEARER, Stop date: 12/24/16 11:54:00 ED[employer] BANDING MACHINE OFFBEARER iodixanol 2017-0 No 100 mL, Memor ia 1-25 Route: l 17:29: IVP, Drug Jair 00 Form: SOLN, Dosing Weight 100, kg, ONCALL, STAT, Start date: 12/24/16 11:29:00 ED[employer] BANDING MACHINE OFFBEARER, Duration: 1 doses or times, Dose = 2.2ml/kg, Max dose = 100ml -- "To be infused by Radiology Staff ONLY" Saline No Notes: Memoria Flush 0.9% 1-25 (Same as: l 17:08: BD Jair 00 Posiflush) Immunizations Ordered Immunization Filled Immunization Date Status Commen ts Source Name Name English Helper SARS-CoV-2 2021-02-16 Completed MD Agrawal rson Vaccination 00:00:00 Pfizer SARS-CoV-2 2021-01-05 Completed MD Agrawal rson Vaccination 00:00:00 Vital Signs Vital Name Observation Time Observation Value Comments Source WEIGHT 2021-02-05 10:00:00 98.5 kg HEIGHT 2021-01-26 08:00:00 182.9 cm WEIGHT 2021-02-05 10:00:00 98.5 kg HEIGHT 2021-01-26 08:00:00 182.9 cm WEIGHT 2020-12-28 13:04:04 104.2 kg WEIGHT 2020-12-28 [...] WEIGHT 2020-11-13 11:03:00 108.1 kg Systolic blood 2021-02-05 17:14:00 140 mm[Hg] pressure Diastolic blood 2021-02-05 17:14:00 78 mm[Hg] MD Nancy kincaid pressure Heart rate 2021-02-05 17:14:00 94 /min MD Dayo masters Oxygen saturation in 2021-02-05 17:14:00 97 /min Killian Arterial blood by Pulse oximetry Body temperature 2021-02-05 17:07:00 37 Natali MD Brayan puentes Respiratory rate 2021-02-05 17:07:00 20 /min MD Brayan puentes Body weight 2021-02-05 16:00:00 98.5 kg MD Dayo masters BMI 2021-02-05 16:00:00 29.44 kg/m2 MD Dayo masters Body height 2021-01-26 14:00:00 182.9 cm MD Dayo masters Systolic blood 2020-11-01 08:15:00 124 mm[Hg] [facility] Diastolic blood 2020-11-01 08:15:00 60 mm[Hg] [facility] Heart rate 2020-11-01 08:15:00 59 /min [facility] Body temperature 2020-11-01 08:15:00 37 Natali [facility] Respiratory rate 2020-11-01 08:15:00 18 /min [facility] Oxygen saturation in 2020-11-01 08:15:00 97 /min [facility] - Arterial blood by Medical Ce nter Pulse oximetry Body height 2020-10-26 23:00:00 188 cm [facility] Body weight 2020-10-26 23:00:00 102.059 kg [facility] BMI 2020-10-26 23:00:00 28.89 kg/m2 [facility] Systolic (mm Hg) 2016-12-26 18:00:00 Uri rial [place] Diastolic (mm Hg) 2016-12-26 18:00:00 Mem orial Jair Respitory Rate 2016-12-26 18:00:00 Memori al [place] Temperature Oral (F) 2016-12-26 17:06:00 100.4 F [facility] [place] Systolic (mm Hg) 2016-12-26 17:00:00 Uri rial Jair Diastolic (mm Hg) 2016-12-26 17:00:00 Mem orial Jair Respitory Rate 2016-12-26 17:00:00 Memori al [place] Systolic (mm Hg) 2016-12-26 16:00:00 Uri rial Jair Diastolic (mm Hg) 2016-12-26 16:00:00 Mem orial Jair Respitory Rate 2016-12-26 16:00:00 Memori al [place] Temperature Oral (F) 2016-12-26 13:19:00 99.5 F [facility] [place] Temperature Oral (F) 2016-12-26 09:13:00 99.9 F [facility] Jair Heart Rate 2016-12-25 02:20:00 [facility] [place] Weight 2016-12-24 21:07:00 [facility] [place] Height 2016-12-24 21:07:00 190.5 cm [facility] Jair BMI Calculated 2016-12-24 21:07:00 Memori al [place] Heart Rate 2016-12-24 17:10:00 [facility] [place] Height 2016-12-24 17:06:00 182.88 cm [facility] [place] BMI Calculated 2016-12-24 17:06:00 Memori al Jair Weight 2016-12-24 17:06:00 [facility] Heart Rate 2016-12-24 17:06:00 [facility] Procedures Procedure Date / Time Performing Clinician Source Performed FIBRINOGEN ACTIVITY 2021-02-05 11:23:00 Lorraine Rdz MD And erson SEDIMENTATION RATE 2021-02-05 11:23:00 Lorraine Rdz MD Nghia rson NON-AUTOMATED C REACTIVE PROTEIN 2021-02-05 11:23:00 Lorraine Rdz MD Nghia rson ALBUMIN LEVEL 2021-02-05 11:23:00 Lorraine Rdz MD Andericao n COMPLETE BLOOD COUNT W/ 2021-02-05 11:23:00 Lorraine Rdz MD DIFFERENTIAL COMPREHENSIVE METABOLIC 2021-02-05 11:23:00 Lorraine Rdz MD PANEL NT PRO BNP 2021-02-05 11:23:00 Lorraine Rdz MD Andericao n CARDIAC PANEL 2021-02-05 11:23:00 Lorraine Rdz MD n MAGNESIUM LEVEL 2021-02-05 11:23:00 Sabino Chopra MD PHOSPHORUS LEVEL 2021-02-05 11:23:00 Sabino Chopra MD Andbuffy sherman Results CBC 2021-02-05 11:23:00 Lorraine Rdz MD Andericao n MANUAL DIFFERENTIAL 2021-02-05 11:23:00 Lorraine Rdz MD And erson GLUCOSE LEVEL 2021-02-05 11:23:00 Lorraine Rdz MD Andericao n BLOOD UREA NITROGEN 2021-02-05 11:23:00 Lorraine Rdz MD And erson ELECTROLYTE PANEL 2021-02-05 11:23:00 Lorraine Rdz MD Dayo son SERUM CREATININE 2021-02-05 11:23:00 Lorraine Rdz MD Hermilo on .GLOMERULAR FILTRATION RATE 2021-02-05 11:23:00 Pretty Rdz MD CALCIUM LEVEL TOTAL 2021-02-05 11:23:00 Lorraine Rdz MD And erson ALKALINE PHOSPHATASE 2021-02-05 11:23:00 Lorraine Rdz MD ALANINE AMINOTRANSFERASE 2021-02-05 11:23:00 Lorraine Rdz ASPARTATE AMINOTRANSFERASE 2021-02-05 11:23:00 Lorraine Rdz MD TOTAL PROTEIN 2021-02-05 11:23:00 Lorraine Rdz MD FRACTIONATED BILIRUBIN 2021-02-05 11:23:00 Lorraine Rdz MD FIBRINOGEN ACTIVITY 2021-02-04 13:25:00 Lorraine Rdz MD And erson SEDIMENTATION RATE 2021-02-04 13:25:00 Lorraine Rdz MD Ngiha rson NON-AUTOMATED C REACTIVE PROTEIN 2021-02-04 13:25:00 Lorraine Rdz MD Nghia rson ALBUMIN LEVEL 2021-02-04 13:25:00 Lorraine Rdz MD Andericao n COMPLETE BLOOD COUNT W/ 2021-02-04 13:25:00 Lorriane Rdz MD DIFFERENTIAL COMPREHENSIVE METABOLIC 2021-02-04 13:25:00 Lorraine Rdz MD PANEL NT PRO BNP 2021-02-04 13:25:00 Lorraine Rdz MD Andericao n CARDIAC PANEL 2021-02-04 13:25:00 Lorraine Rdz MD MAGNESIUM LEVEL 2021-02-04 13:25:00 Sabino Chopra MD PHOSPHORUS LEVEL 2021-02-04 13:25:00 Sabino Chopra MD Andbuffy n Results CBC 2021-02-04 13:25:00 Lorraine Rdz MD Andbuffy n MANUAL DIFFERENTIAL 2021-02-04 13:25:00 Lorraine Rdz MD And erson GLUCOSE LEVEL 2021-02-04 13:25:00 Lorraine Rdz MD n BLOOD UREA NITROGEN 2021-02-04 13:25:00 Lorraine Rdz MD And erson ELECTROLYTE PANEL 2021-02-04 13:25:00 Lorraine Rdz MD Dayo son SERUM CREATININE 2021-02-04 13:25:00 Lorraine Rdz MD Hermilo on .GLOMERULAR FILTRATION RATE 2021-02-04 13:25:00 Pretty Rdz MD CALCIUM LEVEL TOTAL 2021-02-04 13:25:00 Lorraine Rdz MD And erson ALKALINE PHOSPHATASE 2021-02-04 13:25:00 Lorraine Rdz MD ALANINE AMINOTRANSFERASE 2021-02-04 13:25:00 Lorraine Rdz ASPARTATE AMINOTRANSFERASE 2021-02-04 13:25:00 Lorraine Rdz MD TOTAL PROTEIN 2021-02-04 13:25:00 Lorraine Rdz MD FRACTIONATED BILIRUBIN 2021-02-04 13:25:00 Lorraine Rdz MD US LEG VENOUS DOPPLER 2021-02-04 02:31:49 Indra Canela MD And erson BILATERAL BLOODCULTURE 2021-02-03 12:36:00 Cinthia Najera MD And erson FIBRINOGEN ACTIVITY 2021-02-03 12:36:00 Lorraine Rdz MD And erson SEDIMENTATION RATE 2021-02-03 12:36:00 Lorraine Rdz MD Nghia rson NON-AUTOMATED C REACTIVE PROTEIN 2021-02-03 12:36:00 Lorraine Rdz MD Nghia rson ALBUMIN LEVEL 2021-02-03 12:36:00 Lorraine Rdz MD COMPLETE BLOOD COUNT W/ 2021-02-03 12:36:00 Lorraine Rdz MD DIFFERENTIAL COMPREHENSIVE METABOLIC 2021-02-03 12:36:00 Lorraine Rdz MD PANEL NT PRO BNP 2021-02-03 12:36:00 Lorraine Rdz MD CARDIAC PANEL 2021-02-03 12:36:00 Lorraine Rdz MD MAGNESIUM LEVEL 2021-02-03 12:36:00 Sabino Chopra MD PHOSPHORUS LEVEL 2021-02-03 12:36:00 Sabino Chopra MD Results CBC 2021-02-03 12:36:00 Lorraine Rdz MD MANUAL DIFFERENTIAL 2021-02-03 12:36:00 Lorraine Rdz MD And erson GLUCOSE LEVEL 2021-02-03 12:36:00 Lorraine Rdz MD Andericao n BLOOD UREA NITROGEN 2021-02-03 12:36:00 Lorraine Rdz MD And erson ELECTROLYTE PANEL 2021-02-03 12:36:00 Lorraine Rdz MD Dayo son SERUM CREATININE 2021-02-03 12:36:00 Lorraine Rdz MD Hermilo on .GLOMERULAR FILTRATION RATE 2021-02-03 12:36:00 Pretty Rdz MD CALCIUM LEVEL TOTAL 2021-02-03 12:36:00 Lorraine Rdz MD And erson ALKALINE PHOSPHATASE 2021-02-03 12:36:00 Lorraine Rdz MD ALANINE AMINOTRANSFERASE 2021-02-03 12:36:00 Lorraine Rdz ASPARTATE AMINOTRANSFERASE 2021-02-03 12:36:00 Lorraine Rdz MD TOTAL PROTEIN 2021-02-03 12:36:00 Lorraine Rdz MD Andericao n FRACTIONATED BILIRUBIN 2021-02-03 12:36:00 Lorraine Rdz MD FIBRINOGEN ACTIVITY 2021-02-02 11:55:00 Lorraine Rdz MD And erson SEDIMENTATION RATE 2021-02-02 11:55:00 Lorraine Rdz MD Nghia rson NON-AUTOMATED C REACTIVE PROTEIN 2021-02-02 11:55:00 Lorraine Rdz MD Ngiha rson ALBUMIN LEVEL 2021-02-02 11:55:00 Lorraine Rdz MD Andericao n COMPLETE BLOOD COUNT W/ 2021-02-02 11:55:00 Lorraine Rdz MD DIFFERENTIAL COMPREHENSIVE METABOLIC 2021-02-02 11:55:00 Lorraine Rdz MD PANEL CARDIAC PANEL 2021-02-02 11:55:00 Lorraine Rdz MD Andericao [address] MAGNESIUM LEVEL 2021-02-02 11:55:00 Sabino Chopra MD PHOSPHORUS LEVEL 2021-02-02 11:55:00 Sabino Chopra MD Andbuffy sherman Results CBC 2021-02-02 11:55:00 Lorraine Rdz MD MANUAL DIFFERENTIAL 2021-02-02 11:55:00 Lorraine Rdz MD And erson GLUCOSE LEVEL 2021-02-02 11:55:00 Lorraine Rdz MD Andericao n BLOOD UREA NITROGEN 2021-02-02 11:55:00 Lorraine Rdz MD And erson ELECTROLYTE PANEL 2021-02-02 11:55:00 Lorraine Rdz MD Dayo son SERUM CREATININE 2021-02-02 11:55:00 Lorraine Rdz MD Hermilo on .GLOMERULAR FILTRATION RATE 2021-02-02 11:55:00 Pretty Rdz MD CALCIUM LEVEL TOTAL 2021-02-02 11:55:00 Lorraine Rdz MD And erson ALKALINE PHOSPHATASE 2021-02-02 11:55:00 [facility]ANINE AMINOTRANSFERASE 2021-02-02 11:55:00 Lorraine Rdz ASPARTATE AMINOTRANSFERASE 2021-02-02 11:55:00 Lorraine Rdz MD TOTAL PROTEIN 2021-02-02 11:55:00 Lorraine Rdz MD FRACTIONATED BILIRUBIN 2021-02-02 11:55:00 Lorraine Rdz MD NT PRO BNP 2021-02-02 11:55:00 Lorraine Rdz MD Andericao n EMG 2021-02-01 17:48:50 Lorraine Rdz MD Andericao n FIBRINOGEN ACTIVITY 2021-02-01 12:39:00 Lorraine Rdz MD And erson SEDIMENTATION RATE 2021-02-01 12:39:00 Lorraine Rdz MD Nghia rson NON-AUTOMATED C REACTIVE PROTEIN 2021-02-01 12:39:00 Lorraine Rdz MD Nghia rson ALBUMIN LEVEL 2021-02-01 12:39:00 Lorraine Rdz MD Andericao n COMPLETE BLOOD COUNT W/ 2021-02-01 12:39:00 Lorraine Rdz MD DIFFERENTIAL COMPREHENSIVE METABOLIC 2021-02-01 12:39:00 Lorraine Rdz MD PANEL NT PRO BNP 2021-02-01 12:39:00 Lorraine Rdz MD CARDIAC PANEL 2021-02-01 12:39:00 Lorraine Rdz MD MAGNESIUM LEVEL 2021-02-01 12:39:00 Sabino Chopra MD PHOSPHORUS LEVEL 2021-02-01 12:39:00 Sabino Chopra MD HC HIV 1/2 AG AND AB 4TH 2021-02-01 12:39:00 Samir Trent GEN Richard Results CBC 2021-02-01 12:39:00 Lorraine Rdz MD MANUAL DIFFERENTIAL 2021-02-01 12:39:00 Lorraine Rdz MD And erson GLUCOSE LEVEL 2021-02-01 12:39:00 Lorraine Rdz MD BLOOD UREA NITROGEN 2021-02-01 12:39:00 Lorraine Rdz MD And erson ELECTROLYTE PANEL 2021-02-01 12:39:00 Lorraine Rdz MD Dayo son SERUM CREATININE 2021-02-01 12:39:00 Lorraine Rdz MD Hermilo on .GLOMERULAR FILTRATION RATE 2021-02-01 12:39:00 Pretty Rdz MD CALCIUM LEVEL TOTAL 2021-02-01 12:39:00 Lorraine Rdz MD And erson ALKALINE PHOSPHATASE 2021-02-01 12:39:00 Lorraine Rdz MDson ALANINE AMINOTRANSFERASE 2021-02-01 12:39:00 Lorraine Rdz ASPARTATE AMINOTRANSFERASE 2021-02-01 12:39:00 Lorraine Rdz MD TOTAL PROTEIN 2021-02-01 12:39:00 Lorraine Rdz MD FRACTIONATED BILIRUBIN 2021-02-01 12:39:00 Lorraine Rdz MD TMP HIV 1/2 AG&AB PATH 2021-02-01 12:39:00 MD Killian Trent INTERP Richard POC GLUCOSE SCREEN 2021-01-31 20:51:00 Nai Garcia MD Hermilo on COVID-19 (SARS-COV-2) 2021-01-31 18:01:00 Nai Garcia MD And erson PCR-ASYMPTOMATIC MC POC GLUCOSE SCREEN 2021-01-31 14:32:00 Nai Garcia MD Hermilo on FIBRINOGEN ACTIVITY 2021-01-31 11:40:00 Lorraine Rdz MD And erson SEDIMENTATION RATE 2021-01-31 11:40:00 Lorraine Rdz MD Nghia rson NON-AUTOMATED C REACTIVE PROTEIN 2021-01-31 11:40:00 Lorraine Rdz MD Nghia rson ALBUMIN LEVEL 2021-01-31 11:40:00 Lorraine Rdz MD Andericao n COMPLETE BLOOD COUNT W/ 2021-01-31 11:40:00 Lorraine Rdz MD DIFFERENTIAL COMPREHENSIVE METABOLIC 2021-01-31 11:40:00 Lorraine Rdz MD PANEL NT PRO BNP 2021-01-31 11:40:00 Lorraine Rdz MD Andericao n CARDIAC PANEL 2021-01-31 11:40:00 Lorraine Rdz MD Andbuffy n MAGNESIUM LEVEL 2021-01-31 11:40:00 Sabino Chopra MD PHOSPHORUS LEVEL 2021-01-31 11:40:00 Sabino Chopra MD Andbuffy sherman Results CBC 2021-01-31 11:40:00 Lorraine Rdz MD Andbuffy n MANUAL DIFFERENTIAL 2021-01-31 11:40:00 Lorraine Rdz MD And erson GLUCOSE LEVEL 2021-01-31 11:40:00 Lorraine Rdz MD Andericao n BLOOD UREA NITROGEN 2021-01-31 11:40:00 Lorraine Rdz MD And erson ELECTROLYTE PANEL 2021-01-31 11:40:00 Lorraine Rdz MD Dayo son SERUM CREATININE 2021-01-31 11:40:00 Lorraine Rdz MD Hermilo on .GLOMERULAR FILTRATION RATE 2021-01-31 11:40:00 Pretty Rdz MD CALCIUM LEVEL TOTAL 2021-01-31 11:40:00 Lorraine Rdz MD And erson ALKALINE PHOSPHATASE 2021-01-31 11:40:00 Lorraine Rdz MD ALANINE AMINOTRANSFERASE 2021-01-31 11:40:00 Lorraine Rdz ASPARTATE AMINOTRANSFERASE 2021-01-31 11:40:00 Lorraine Rdz MD TOTAL PROTEIN 2021-01-31 11:40:00 Lorraine Rdz MDo n FRACTIONATED BILIRUBIN 2021-01-31 11:40:00 Lorraine Rdz MD BLOODCULTURE 2021-01-31 03:18:00 Viridiana Khalil MD Nghia rson BLOODCULTURE 2021-01-31 02:54:00 Viridinaa Khalil MD Nghia rson TRANSFUSE FRESH FROZEN 2021-01-30 22:45:06 Santos Sanders MD PLASMA TRANSFUSE FRESH FROZEN 2021-01-30 22:44:50 Santos Sanders MD PLASMA TRANSFUSE FRESH FROZEN 2021-01-30 22:44:33 Santos Sanders MD PLASMA TRANSFUSE FRESH FROZEN 2021-01-30 22:44:17 Santos Sanders MD PLASMA TRANSFUSE FRESH FROZEN 2021-01-30 22:44:04 Santos Sanders MD PLASMA TRANSFUSE FRESH FROZEN 2021-01-30 22:43:47 Santos Sanders MD PLASMA TRANSFUSE FRESH FROZEN 2021-01-30 22:43:31 Santos Sanders MD PLASMA TRANSFUSE FRESH FROZEN 2021-01-30 22:43:15 Santos Sanders MD PLASMA TRANSFUSE FRESH FROZEN 2021-01-30 22:43:00 Santos Sanders MD PLASMA TRANSFUSE FRESH FROZEN 2021-01-30 22:42:44 Santos Sanders MD PLASMA TRANSFUSE FRESH FROZEN 2021-01-30 22:42:20 Santos Sanders MD PLASMA POC GLUCOSE SCREEN 2021-01-30 22:12:00 Nai Garcia MD on POC GLUCOSE SCREEN 2021-01-30 18:55:00 Nai Garcia MD on PREPARE FRESH FROZEN PLASMA 2021-01-30 16:00:00 Mariah Sanders MD POC GLUCOSE SCREEN 2021-01-30 13:08:00 Nai Garcia MD Hermilo on FIBRINOGEN ACTIVITY 2021-01-30 11:51:00 Lorraine Rdz MD And erson SEDIMENTATION RATE 2021-01-30 11:51:00 Lorraine Rdz MD Nghia rson NON-AUTOMATED C REACTIVE PROTEIN 2021-01-30 11:51:00 Lorraine Rdz MD Nghia rson ALBUMIN LEVEL 2021-01-30 11:51:00 Lorraine Rdz MD Andericao n COMPLETE BLOOD COUNT W/ 2021-01-30 11:51:00 Lorraine Rdz MD DIFFERENTIAL COMPREHENSIVE METABOLIC 2021-01-30 11:51:00 Lorraine Rdz MD PANEL NT PRO BNP 2021-01-30 11:51:00 Lorraine Rdz MD Andericao n CARDIAC PANEL 2021-01-30 11:51:00 Lorraine Rdz MD Andericao n MAGNESIUM LEVEL 2021-01-30 11:51:00 Sabino Chopra MD PHOSPHORUS LEVEL 2021-01-30 11:51:00 Sabino Chopra MD Results CBC 2021-01-30 11:51:00 Lorraine Rdz MD Andbuffy n MANUAL DIFFERENTIAL 2021-01-30 11:51:00 Lorraine Rdz MD And erson GLUCOSE LEVEL 2021-01-30 11:51:00 Lorraine Rdz MD Andbuffy n BLOOD UREA NITROGEN 2021-01-30 11:51:00 Lorraine Rdz MD And erson ELECTROLYTE PANEL 2021-01-30 11:51:00 Lorraine Rdz MD Dayo son SERUM CREATININE 2021-01-30 11:51:00 Lorraine Rdz MD Hermilo on .GLOMERULAR FILTRATION RATE 2021-01-30 11:51:00 Pretty Rdz MD CALCIUM LEVEL TOTAL 2021-01-30 11:51:00 Lorraine Rdz MD And erson ALKALINE PHOSPHATASE 2021-01-30 11:51:00 Lorraine Rdz MD derson ALANINE AMINOTRANSFERASE 2021-01-30 11:51:00 Lorraine Rdz ASPARTATE AMINOTRANSFERASE 2021-01-30 11:51:00 Lorraine Rdz MD TOTAL PROTEIN 2021-01-30 11:51:00 Lorraine Rdz MDo n FRACTIONATED BILIRUBIN 2021-01-30 11:51:00 Lorraine Rdz MD POC GLUCOSE SCREEN 2021-01-30 10:26:00 Nai Garciaers on POC GLUCOSE SCREEN 2021-01-30 01:02:00 Nai Garcia MD on TRANSFUSE FRESH FROZEN 2021-01-30 00:27:28 Susie Hernandez MD PLASMA TRANSFUSE FRESH FROZEN 2021-01-30 00:27:14 Susie Hernandez MD PLASMA TRANSFUSE FRESH FROZEN 2021-01-30 00:26:58 Susie Hernandez MD PLASMA TRANSFUSE FRESH FROZEN 2021-01-30 00:26:25 Susie Hernandez MD PLASMA TRANSFUSE FRESH FROZEN 2021-01-30 00:26:05 Susie Hernandez MD PLASMA TRANSFUSE FRESH FROZEN 2021-01-30 00:19:40 Susie Hernandez MD PLASMA TRANSFUSE FRESH FROZEN 2021-01-29 23:31:55 Susie Hernandez MD PLASMA POC GLUCOSE SCREEN 2021-01-29 19:15:00 Nai Garcia MD on PREPARE FRESH FROZEN PLASMA 2021-01-29 17:03:00 Susie Hernandez MD POC GLUCOSE SCREEN 2021-01-29 13:44:00 Nai Garcia MD on GENERAL LABORATORY ADD ON 2021-01-29 13:40:00 Sabino Chopra TEST FIBRINOGEN ACTIVITY 2021-01-29 12:02:00 Lorraine Rdz MD And erson SEDIMENTATION RATE 2021-01-29 12:02:00 Lorraine Rdz MD Nghia rson NON-AUTOMATED C REACTIVE PROTEIN 2021-01-29 12:02:00 Lorraine Rdz MD Nghia rson ALBUMIN LEVEL 2021-01-29 12:02:00 Lorraine Rdz MD COMPLETE BLOOD COUNT W/ 2021-01-29 12:02:00 Lorraine Rdz MD DIFFERENTIAL COMPREHENSIVE METABOLIC 2021-01-29 12:02:00 Lorraine Rdz MD PANEL NT PRO BNP 2021-01-29 12:02:00 Lorraine Rdz MD CARDIAC PANEL 2021-01-29 12:02:00 Lorraine Rdz MD Results CBC 2021-01-29 12:02:00 Lorraine Rdz MD MANUAL DIFFERENTIAL 2021-01-29 12:02:00 Lorraine Rdz MD And erson GLUCOSE LEVEL 2021-01-29 12:02:00 Lorraine Rdz MD BLOOD UREA NITROGEN 2021-01-29 12:02:00 Lorraine Rdz MD And erson ELECTROLYTE PANEL 2021-01-29 12:02:00 Lorraine Rdz MD Dayo son SERUM CREATININE 2021-01-29 12:02:00 Lorraine Rdz MD Hermilo on .GLOMERULAR FILTRATION RATE 2021-01-29 12:02:00 Pretty Rdz MD CALCIUM LEVEL TOTAL 2021-01-29 12:02:00 Lorraine Rdz MD And erson ALKALINE PHOSPHATASE 2021-01-29 12:02:00 Lorraine Rdz MD ALANINE AMINOTRANSFERASE 2021-01-29 12:02:00 Lorraine Rdz ASPARTATE AMINOTRANSFERASE 2021-01-29 12:02:00 Lorraine Rdz MD TOTAL PROTEIN 2021-01-29 12:02:00 Lorraine Rdz MD FRACTIONATED BILIRUBIN 2021-01-29 12:02:00 Lorraine Rdz MD MAGNESIUM LEVEL 2021-01-29 12:02:00 Lorraine Rdz MD PHOSPHORUS LEVEL 2021-01-29 12:02:00 Lorraine Rdz MD Hermilo on POC GLUCOSE SCREEN 2021-01-29 04:54:00 Nai Garcia MD Hermilo on TRANSFUSE FRESH FROZEN 2021-01-29 00:49:00 Santos Sanders MD PLASMA TRANSFUSE FRESH FROZEN 2021-01-29 00:48:11 Santos Sanders MD PLASMA TRANSFUSE FRESH FROZEN 2021-01-29 00:47:51 Santos Sanders MD PLASMA TRANSFUSE FRESH FROZEN 2021-01-29 00:47:37 Santos Sanders MD PLASMA TRANSFUSE FRESH FROZEN 2021-01-29 00:47:19 Santos Sanders MD PLASMA TRANSFUSE FRESH FROZEN 2021-01-29 00:47:04 Santos Sanders MD PLASMA TRANSFUSE FRESH FROZEN 2021-01-29 00:46:44 Santos Sanders MD PLASMA TRANSFUSE FRESH FROZEN 2021-01-29 00:46:27 Santos Sanders MD PLASMA TRANSFUSE FRESH FROZEN 2021-01-29 00:46:08 Santos Sanders MD PLASMA POC GLUCOSE SCREEN 2021-01-28 22:31:00 Nai Garcia MD on T-SPOT TUBERCULOSIS 2021-01-28 22:16:00 Sabino Chopra MD [employer] INTERVENTIONAL 2021-01-28 18:38:00 Jem Rivera MD on RADIOLOGY W/ SMEAR HC CULTURE, ANAEROB 2021-01-28 18:38:00 Jem Rivera MD son FUNGUS INTERVENTIONAL RAD 2021-01-28 18:38:00 Jem Rivera MD CULTURE W/ GRAM STAIN INTERVENTIONAL RADIOLOGY 2021-01-28 18:38:00 Jem Rivera MD CULTURE W/GRAM STAIN IR US NON-TARGET MUSCLE 2021-01-28 18:05:26 Lorraine Rdz MD BIOPSY IR NEPHROSTOMY EXCHANGE 2021-01-28 18:05:26 Jenna Malave MD POC GLUCOSE SCREEN 2021-01-28 16:35:00 Nai Gracia MD on MRI CARDIAC W WO CONTRAST 2021-01-28 15:20:23 Erin Garcia MD PREPARE FRESH FROZEN PLASMA 2021-01-28 14:28:00 Mariah Sanders MD GENERAL LABORATORY ADD ON 2021-01-28 14:14:00 Sabino Chopra TEST ACETYLCHOLINE RECEPTOR 2021-01-28 06:42:00 Lorraine Rdz MD MODULATING AB FIBRINOGEN ACTIVITY 2021-01-28 06:42:00 Lorraien Rdz MD And erson SEDIMENTATION RATE 2021-01-28 06:42:00 Lorraine Rdz MD Nghia rson NON-AUTOMATED C REACTIVE PROTEIN 2021-01-28 06:42:00 Lorraine Rdz MD Nghia rson ALBUMIN LEVEL 2021-01-28 06:42:00 Lorraine Rdz MD Andericao n COMPLETE BLOOD COUNT W/ 2021-01-28 06:42:00 Lorraine Rdz MD DIFFERENTIAL COMPREHENSIVE METABOLIC 2021-01-28 06:42:00 Lorraine Rdz MD PANEL NT PRO BNP 2021-01-28 06:42:00 Lorraine Rdz MD Andericao n CARDIAC PANEL 2021-01-28 06:42:00 Lorraine Rdz MD Andbuffy n C3 COMPLEMENT 2021-01-28 06:42:00 Gopal Thomas MD ANCA PANEL FOR VASCULITIS, 2021-01-28 06:42:00 Gopal Thomas SERUM Results CBC 2021-01-28 06:42:00 Lorraine Rdz MD Andericao n MANUAL DIFFERENTIAL 2021-01-28 06:42:00 Lorraine Rdz MD And erson GLUCOSE LEVEL 2021-01-28 06:42:00 Lorraine Rdz MD Andericao n BLOOD UREA NITROGEN 2021-01-28 06:42:00 Lorraine Rdz MD And erson ELECTROLYTE PANEL 2021-01-28 06:42:00 Lorraine Rdz MD Dayo son SERUM CREATININE 2021-01-28 06:42:00 Lorraine Rdz MD Hermilo on .GLOMERULAR FILTRATION RATE 2021-01-28 06:42:00 Pretty Rdz MD CALCIUM LEVEL TOTAL 2021-01-28 06:42:00 Lorraine Rdz MD And erson ALKALINE PHOSPHATASE 2021-01-28 06:42:00 Lorraine Rdz MD ALANINE AMINOTRANSFERASE 2021-01-28 06:42:00 Lorraine Rdz ASPARTATE AMINOTRANSFERASE 2021-01-28 06:42:00 Lorraine Rdz MD TOTAL PROTEIN 2021-01-28 06:42:00 Lorraine Rdz MD Andbuffy sherman FRACTIONATED BILIRUBIN 2021-01-28 06:42:00 Lorraine Rdz MD MAGNESIUM LEVEL 2021-01-28 06:42:00 Lorraine Rdz MD PHOSPHORUS LEVEL 2021-01-28 06:42:00 Lorraine Rdz MD Hermilo on POC GLUCOSE SCREEN 2021-01-28 03:30:00 Naif Galan MD Hermilo on POC GLUCOSE SCREEN 2021-01-27 23:27:00 Naif Galan MD Hermilo on SODIUM URINE 2021-01-27 22:16:00 Sean Salcedo MD Andbuffy sherman Robert POTASSIUM LEVEL URINE 2021-01-27 22:16:00 MD Brayan Burroughs nderson Robert CHLORIDE LEVEL URINE 2021-01-27 22:16:00 MD Nancy Burroughsson Robert CREATININE URINE, RANDOM 2021-01-27 22:16:00 Samir Burroughs Robert PROTEIN / CREATININE RATIO 2021-01-27 22:16:00 MD Killian Burroughs URINE Robert MICROALBUMIN/CREATININE 2021-01-27 22:16:00 MD Killian Burroughs RATIO, URINE Robert ALBUMIN LEVEL URINE 2021-01-27 22:16:00 Gopal Thomas MD Dayo son POC GLUCOSE SCREEN 2021-01-27 19:21:00 Naif Galan MD Hermilo on US RENAL 2021-01-27 18:48:47 Lorraine Rdz MD POC GLUCOSE SCREEN 2021-01-27 15:06:00 Naif Galan MD Hermilo on FIBRINOGEN ACTIVITY 2021-01-27 08:05:00 Lorraine Rdz MD And erson SEDIMENTATION RATE 2021-01-27 08:05:00 Lorraine Rdz MD Nghia rson NON-AUTOMATED C REACTIVE PROTEIN 2021-01-27 08:05:00 Lorraine Rdz MD Nghia rson ALBUMIN LEVEL 2021-01-27 08:05:00 Lorraine Rdz MD Andbuffy sherman COMPLETE BLOOD COUNT W/ 2021-01-27 08:05:00 Lorraine Rdz MD DIFFERENTIAL COMPREHENSIVE METABOLIC 2021-01-27 08:05:00 Lorraine Rdz MD PANEL NT PRO BNP 2021-01-27 08:05:00 Lorraine Rdz MD Andbuffy sherman CARDIAC PANEL 2021-01-27 08:05:00 Lorraine Rdz MD Results CBC 2021-01-27 08:05:00 Lorraine Rdz MD MANUAL DIFFERENTIAL 2021-01-27 08:05:00 Lorraine Rdz MD And erson GLUCOSE LEVEL 2021-01-27 08:05:00 Lorraine Rdz MD BLOOD UREA NITROGEN 2021-01-27 08:05:00 Lorraine Rdz MD And erson ELECTROLYTE PANEL 2021-01-27 08:05:00 Lorraine Rdz MD Dayo son SERUM CREATININE 2021-01-27 08:05:00 Lorraine Rdz MD Hermilo on .GLOMERULAR FILTRATION RATE 2021-01-27 08:05:00 Pretty Rdz MD CALCIUM LEVEL TOTAL 2021-01-27 08:05:00 Lorraine Rdz MD And erson ALKALINE PHOSPHATASE 2021-01-27 08:05:00 Lorraine Rdz MD ALANINE AMINOTRANSFERASE 2021-01-27 08:05:00 Lorraine Rdz ASPARTATE AMINOTRANSFERASE 2021-01-27 08:05:00 Lorraine Rdz MD TOTAL PROTEIN 2021-01-27 08:05:00 Lorraine Rdz MD FRACTIONATED BILIRUBIN 2021-01-27 08:05:00 Lorraine Rdz MD POC GLUCOSE SCREEN 2021-01-27 04:25:00 Naif Galan MD Hermilo on URINE CULTURE 2021-01-27 02:06:00 Lorraine Rdz MD URINALYSIS WITH MICROSCOPIC 2021-01-27 02:06:00 Pretty Rdz MD IF INDICATED URINALYSIS MICROSCOPIC 2021-01-27 02:06:00 Lorraine Rdz MD POC GLUCOSE SCREEN 2021-01-27 01:55:00 Naif Galan MD on URINE CULTURE 2021-01-26 21:52:00 Lorraine Rdz MD URINALYSIS WITH MICROSCOPIC 2021-01-26 21:52:00 Pretty Rdz MD IF INDICATED URINALYSIS MICROSCOPIC 2021-01-26 21:52:00 Lorraine Rdz MD TRANSFUSE FRESH FROZEN 2021-01-26 21:19:02 Yue Douglas MD An derson PLASMA TRANSFUSE FRESH FROZEN 2021-01-26 21:18:46 Yue Douglas MD An derson PLASMA TRANSFUSE FRESH FROZEN 2021-01-26 21:18:30 Yue Douglas MD An derson PLASMA TRANSFUSE FRESH FROZEN 2021-01-26 21:18:13 Yue Douglas MD An derson PLASMA TRANSFUSE FRESH FROZEN 2021-01-26 21:17:57 Yue Douglas MD An derson PLASMA TRANSFUSE FRESH FROZEN 2021-01-26 21:17:32 Yue Douglas MD An derson PLASMA TRANSFUSE FRESH FROZEN 2021-01-26 21:17:15 Yue Douglas MD An derson PLASMA TRANSFUSE FRESH FROZEN 2021-01-26 21:17:01 Yue Douglas MD An derson PLASMA TRANSFUSE FRESH FROZEN 2021-01-26 21:16:44 Yue Douglas MD An derson PLASMA TRANSFUSE FRESH FROZEN 2021-01-26 21:16:29 Yue Douglas MD An derson PLASMA TRANSFUSE FRESH FROZEN 2021-01-26 21:16:05 Yue Douglas MD An derson PLASMA POC GLUCOSE SCREEN 2021-01-26 20:36:00 Naif Galan MD on PREPARE FRESH FROZEN PLASMA 2021-01-26 14:05:00 Yue Douglas MD TROPONIN T 2021-01-26 13:03:00 Erin Garcia MD CONFIRM ABORH TYPE 2021-01-26 06:55:00 Naif Galan MD Hermilo on FIBRINOGEN ACTIVITY 2021-01-26 06:53:00 Lorraine Rdz MD And erson SEDIMENTATION RATE 2021-01-26 06:53:00 Lorraine Rdz MD Nghia rson NON-AUTOMATED C REACTIVE PROTEIN 2021-01-26 06:53:00 Lorraine Rdz MD Nghia rson ALBUMIN LEVEL 2021-01-26 06:53:00 Lorraine Rdz MD Andericao n COMPLETE BLOOD COUNT W/ 2021-01-26 06:53:00 Lorraine Rdz MD DIFFERENTIAL COMPREHENSIVE METABOLIC 2021-01-26 06:53:00 Lorraine Rdz MD PANEL NT PRO BNP 2021-01-26 06:53:00 Lorraine Rdz MD Andbuffy n TYPE AND SCREEN 2021-01-26 06:53:00 Santos Sanders MD Andericao n CARDIAC PANEL 2021-01-26 06:53:00 Lorraine Rdz MD Andericao n Results CBC 2021-01-26 06:53:00 Lorraine Rdz MD Andericao n MANUAL DIFFERENTIAL 2021-01-26 06:53:00 Lorraine Rdz MD And erson GLUCOSE LEVEL 2021-01-26 06:53:00 Lorraine Rdz MD Andericao n BLOOD UREA NITROGEN 2021-01-26 06:53:00 Lorraine Rdz MD And erson ELECTROLYTE PANEL 2021-01-26 06:53:00 Lorraine Rdz MD Dayo son SERUM CREATININE 2021-01-26 06:53:00 Lorraine Rdz MD Hermilo on .GLOMERULAR FILTRATION RATE 2021-01-26 06:53:00 Pretty Rdz MD CALCIUM LEVEL TOTAL 2021-01-26 06:53:00 Lorraine Rdz MD And erson ALKALINE PHOSPHATASE 2021-01-26 06:53:00 Lorraine Rdz MD ALANINE AMINOTRANSFERASE 2021-01-26 06:53:00 Lorraine Rdz ASPARTATE AMINOTRANSFERASE 2021-01-26 06:53:00 Lorraine Rdz MD TOTAL PROTEIN 2021-01-26 06:53:00 Lorraine Rdz MD FRACTIONATED BILIRUBIN 2021-01-26 06:53:00 Lorraine Rdz MD ABORH 2021-01-26 06:53:00 Santos Sanders MD ANTIBODY SCREEN 2021-01-26 06:53:00 Santos Sanders MD CLOT EXPIRATION DATE 2021-01-26 06:53:00 Santos Sanders MD derson TMP INTERPRETATION ANTIBODY 2021-01-26 06:53:00 Mariah Sanders MD SCREEN NEGATIVE TROPONIN T 2021-01-26 02:12:00 Erin Garcia MD EKG, 12-LEAD (PORTABLE) 2021-01-26 00:00:00 Erin Garcia MD nderson XR CHEST 1 VW POST IMPLANT 2021-01-25 22:48:02 Margie Lemon MD ECHOCARDIOGRAM 2D COMPLETE 2021-01-25 21:55:45 Lorraine Rdz MD W CONTRAST UT INSERT NON-TUNNEL CV 2021-01-25 21:48:42 Lorraine Rdz MD CATH UT CHG US GUIDE, VASCULAR 2021-01-25 21:48:42 Lorraine Rdz MD ACCESS TROPONIN T 2021-01-25 17:22:00 Erin Garcia MD RESEARCH PROTOCOL [id number] 2021-01-25 17:22:00 Lacy Lynn MD TROPONIN T 2021-01-25 16:14:00 Erin Garcia MD PROTHROMBIN TIME 2021-01-25 16:14:00 Lorraine Rdz MD on PARTIAL THROMBOPLASTIN TIME 2021-01-25 16:14:00 Pretty Rdz MD FIBRINOGEN ACTIVITY 2021-01-25 16:14:00 Lorraine Rdz TROPONIN T 2021-01-25 10:29:00 Erin Garcia MD MYOGLOBIN, URINE 2021-01-25 09:21:00 Lacy Lynn MD TROPONIN T 2021-01-25 06:30:00 Erin Garcia MD COMPLETE BLOOD COUNT W/ 2021-01-25 06:30:00 Erin Garcia MD nderson DIFFERENTIAL BASIC METABOLIC PANEL, 2021-01-25 06:30:00 Erin Garcia MD CALCIUM TOTAL MAGNESIUM LEVEL 2021-01-25 06:30:00 Erin Garcia MD PHOSPHORUS LEVEL 2021-01-25 06:30:00 Erin Garcia MD Results CBC 2021-01-25 06:30:00 Erin Garcia MD MANUAL DIFFERENTIAL 2021-01-25 06:30:00 Erin Garcia MD [employer]ok[employer] masters GLUCOSE LEVEL 2021-01-25 06:30:00 Erni Garcia MD BLOOD UREA NITROGEN 2021-01-25 06:30:00 Erin Garcia MD Dayo son ELECTROLYTE PANEL 2021-01-25 06:30:00 Erin Garcia MDo n SERUM CREATININE 2021-01-25 06:30:00 Erin Garcia MD .GLOMERULAR FILTRATION RATE 2021-01-25 06:30:00 Erin Garcia MD CALCIUM LEVEL TOTAL 2021-01-25 06:30:00 Erin Garcia MD Dayo son TROPONIN T 2021-01-25 00:38:00 Erin Garcia MD THYROID STIMULATING HORMONE 2021-01-25 00:38:00 Lacy Lynn MD FREE THYROXINE 2021-01-25 00:38:00 Lacy Lynn MD And erson TOTAL T3 2021-01-25 00:38:00 Lacy Lynn MD And erson CORTISOL 2021-01-25 00:38:00 Lacy Lynn MD And erson SEDIMENTATION RATE 2021-01-25 00:38:00 Lacy Lynn MD NON-AUTOMATED C REACTIVE PROTEIN 2021-01-25 00:38:00 Lacy Lynn MD CYTOKINE PANEL 3 2021-01-25 00:38:00 Lacy Lynn MD An codi HEPATITIS B SURFACE 2021-01-25 00:38:00 Lacy Lynn MD ANTIGEN, SERUM HEPATITIS B CORE ANTIBODY 2021-01-25 00:38:00 Lacy Lynn MD HEPATITIS C VIRUS ANTIBODY 2021-01-25 00:38:00 Lacy Lynn MD B-TYPE NATRIURETIC PEPTIDE 2021-01-25 00:38:00 Lacy Lynn MD ALDOLASE 2021-01-25 00:38:00 Lacy Lynn MD And erson MYOGLOBIN, SERUM 2021-01-25 00:38:00 Lacy Lynn MD MUSK ANTIBODY 2021-01-25 00:38:00 Lacy Lynn MD And erson OP FRANKLIN REF 2021-01-25 00:38:00 Lacy Lynn MD And erson ANTINUCLEAR ANTIBODY HEP-2 2021-01-25 00:38:00 Lacy Lynn MD SUBSTRATE IGG C3 COMPLEMENT 2021-01-25 00:38:00 Lacy Lynn MD And erson HC REF HEPATITIS BC AB, IGG 2021-01-25 00:38:00 Danni Malave MD & IGM HEPATITIS B SURFACE AG 2021-01-25 00:38:00 Jenna Malave MD W/CONFIRM HEPATITIS C VIRUS AB SCREEN 2021-01-25 00:38:00 Danni Malave MD W/REFLEX HCV PCR CYTOKINE PANEL 3 FINAL 2021-01-25 00:38:00 Jenna Malave MD REPORT LEO MISCELLANEOUS TEST 2021-01-25 00:38:00 Jenna Malave MD ARUP GEN ORDER 1 2021-01-25 00:38:00 Jenna Malave MD on CARDIAC PANEL 2021-01-24 23:59:00 Lacy Lynn MD And erson C REACTIVE PROTEIN 2021-01-24 21:00:00 Erin Garcia MD on SEDIMENTATION RATE 2021-01-24 21:00:00 Erin Garcia MD on NON-AUTOMATED NT PRO BNP 2021-01-24 21:00:00 Erin Garcia MD TROPONIN T 2021-01-24 21:00:00 Erin Garcia MD CREATINE KINASE 2021-01-24 21:00:00 Erin Garcia MD CKMB 2021-01-24 21:00:00 Erin Garcia MD RESPIRATORY VIRAL PANEL + 2021-01-24 20:43:00 Erin Garcia MD COVID-19, NASOPHARYNGEAL SWAB CT CHEST ABDOMEN PELVIS W 2021-01-24 18:44:06 Jenna Malave MD WO CONTRAST AMYLASE LEVEL 2021-01-24 18:23:00 Jenna Malaev MD COMPLETE BLOOD COUNT W/ 2021-01-24 18:23:00 Jenna Malave MD DIFFERENTIAL COMPREHENSIVE METABOLIC 2021-01-24 18:23:00 Jenna Malave MD PANEL FREE THYROXINE 2021-01-24 18:23:00 Jenna Malave MD LIPASE LEVEL 2021-01-24 18:23:00 Jenna Malave MD MAGNESIUM LEVEL 2021-01-24 18:23:00 Jenna Malave MD PHOSPHORUS LEVEL 2021-01-24 18:23:00 Jenna Malave MD on THYROID STIMULATING HORMONE 2021-01-24 18:23:00 Danni Malave MD Results CBC 2021-01-24 18:23:00 Jenna Malave MD MANUAL DIFFERENTIAL 2021-01-24 18:23:00 Jenna Malave MD And erson GLUCOSE LEVEL 2021-01-24 18:23:00 Jenna Malave MD BLOOD UREA NITROGEN 2021-01-24 18:23:00 Jenna Malave MD And erson ELECTROLYTE PANEL 2021-01-24 18:23:00 Jenna Malave MD son SERUM CREATININE 2021-01-24 18:23:00 Jenna Malave MD on .GLOMERULAR FILTRATION RATE 2021-01-24 18:23:00 Danni Malave MD CALCIUM LEVEL TOTAL 2021-01-24 18:23:00 Jenna Malave MD And erson ALBUMIN LEVEL 2021-01-24 18:23:00 Jenna Malave MD ALKALINE PHOSPHATASE 2021-01-24 18:23:00 Jenna Malave MD ALANINE AMINOTRANSFERASE 2021-01-24 18:23:00 Jenna Malave ASPARTATE AMINOTRANSFERASE 2021-01-24 18:23:00 Jenna Malave MD TOTAL PROTEIN 2021-01-24 18:23:00 Jenna Malave MD FRACTIONATED BILIRUBIN 2021-01-24 18:23:00 Jenna Malave MD POC CREATININE 2021-01-24 16:52:00 Jenna Malave MD, MD NGS BLOOD CONTROL 2020-12-28 21:42:00 Jessica Hurtado MD nderson AMYLASE LEVEL 2020-12-28 14:06:00 Jessica Hurtado MD Hermilo on COMPLETE BLOOD COUNT W/ 2020-12-28 14:06:00 Jessica Hurtado DIFFERENTIAL COMPREHENSIVE METABOLIC 2020-12-28 14:06:00 Jessica Hurtado PANEL FREE THYROXINE 2020-12-28 14:06:00 Jessica Hurtado MD Hermilo on LIPASE LEVEL 2020-12-28 14:06:00 Jessica Hurtado MD on MAGNESIUM LEVEL 2020-12-28 14:06:00 Jessica Hurtado MD Hermilo on PHOSPHORUS LEVEL 2020-12-28 14:06:00 Jessica Hurtado MD Dayo son THYROID STIMULATING HORMONE 2020-12-28 14:06:00 Jessica Hurtado MD Results CBC 2020-12-28 14:06:00 Jessica Hurtado MD Hermilo on MANUAL DIFFERENTIAL 2020-12-28 14:06:00 Jessica Hurtado MDson GLUCOSE LEVEL 2020-12-28 14:06:00 Jessica Hurtado MD on BLOOD UREA NITROGEN 2020-12-28 14:06:00 Jessica Hurtado MD ELECTROLYTE PANEL 2020-12-28 14:06:00 Jessica Hurtado MD Nghia rson SERUM CREATININE 2020-12-28 14:06:00 Jessica Hurtado MD Dayo son .GLOMERULAR FILTRATION RATE 2020-12-28 14:06:00 Jessica Hurtado MD CALCIUM LEVEL TOTAL 2020-12-28 14:06:00 Jessica Hurtado MD sonuson ALBUMIN LEVEL 2020-12-28 14:06:00 Jessica Hurtado MD [...] Hurtado PANEL FREE THYROXINE 2020-12-07 19:42:00 Jessica Huratdo MD Hermilo on GUA 2020-12-07 19:42:00 Jessica [...] DIFFERENTIAL 2020-12-07 19:42:00 Jessica Hurtado MD An sonuson GLUCOSE LEVEL 2020-12-07 19:42:00 Jessica Hurtado MD Hermilo on BLOOD UREA NITROGEN 2020-12-07 19:42:00 Jessica Hurtado MDson ELECTROLYTE PANEL 2020-12-07 19:42:00 Jessica Hurtado MD Nghia rson SERUM CREATININE 2020-12-07 19:42:00 Jessica Hurtado MD Dayo son .GLOMERULAR FILTRATION RATE 2020-12-07 19:42:00 Jessica Hurtado MD CALCIUM LEVEL TOTAL 2020-12-07 19:42:00 Jessica Hurtado MD ALBUMIN LEVEL 2020-12-07 19:42:00 Jessica Hurtado MD Hermilo on ALKALINE PHOSPHATASE 2020-12-07 19:42:00 Jessica Hurtado MD nderson ALANINE AMINOTRANSFERASE 2020-12-07 19:42:00 Jessica Hurtado MD ASPARTATE AMINOTRANSFERASE 2020-12-07 19:42:00 Jessica Hurtado MD TOTAL PROTEIN 2020-12-07 19:42:00 Jessica Hurtado MD Hermilo on FRACTIONATED BILIRUBIN 2020-12-07 19:42:00 Jessica Hurtado MD CYTOKINE PANEL 3 FINAL 2020-12-07 19:42:00 Jessica Hurtado MD REPORT GUA MICROSCOPIC 2020-12-07 19:42:00 Jessica Hurtado MD Hermilo on IR CT GUIDED BIOPSY 2020-12-05 21:45:00 Jessica Hurtado MD RETROPERITONEAL PATHOLOGY BIOPSY 2020-12-05 21:02:00 Jessica Hurtado MD Dayo son INTERPRETATION HP MD MICROSATELLITE 2020-12-05 20:57:00 Jessica Hurtado MD nderson INSTABILITY (MSI) ANALYSIS REPORT ELPIDIO MONAE SOLID TUMOR GENOMIC 2020-12-05 20:57:00 Jessica Hurtado MD ASSAY RNA V1 INTERPRETATION AND REPORT ELPIDIO MONAE SOLID TUMOR GENOMIC 2020-12-05 [...] MD WITH INTERPRETATION AND REPORT ELPIDIO MONAE FGFR1 2020-12-03 16:35:56 Jessica Hurtado MD on AP FGFR3 2020-12-03 16:35:56 Jessica Hurtado MD on AP MSI BY PCR 2020-12-03 16:35:56 Jessica Hurtado MD Dayo son ELPIDIO MONAE NTRK1 FUSION ANALYSIS 2020-12-03 16:35:56 Jessica Hurtado MD WITH INTERPRETATION AND REPORT ELPIDIO MONAE NTRK2 FUSION ANALYSIS 2020-12-03 16:35:56 Jessica Hurtado MD WITH INTERPRETATION AND REPORT ELPIDIO MONAE NTRK3 FUSION ANALYSIS 2020-12-03 16:35:56 Jessica Hurtado MD WITH INTERPRETATION AND REPORT ELPIDIO MONAE PIK3CA 2020-12-03 16:35:56 Jessica Hurtado MD on AP IHC MTAP 2020-12-03 16:35:56 Jessica Hurtado MD on EKG, 12-LEAD (SCHEDULED) 2020-12-03 00:00:00 Venecia Schwab MD US RENAL 2020-11-15 20:07:20 Jessica Hurtado MD Hermilo on TOTAL PROTEIN 2020-11-13 21:16:00 Jessica Hurtado MD on ALBUMIN LEVEL 2020-11-13 21:16:00 Jessica Hurtado [...] MD ALKALINE PHOSPHATASE 2020-11-13 21:16:00 Jessica Hurtado MD nderson LACTATE DEHYDROGENASE 2020-11-13 21:16:00 Jessica Hurtado MD ALANINE AMINOTRANSFERASE 2020-11-13 21:16:00 Jessica Hurtado MD MAGNESIUM LEVEL 2020-11-13 21:16:00 Jessica Hurtado MD Hermilo on ASPARTATE AMINOTRANSFERASE 2020-11-13 21:16:00 Jessica Hurtado MD ELECTROLYTE PANEL 2020-11-13 21:16:00 Jessica Hurtado MD Nghia rson HC BETA HCG TUMOR MARKER 2020-11-13 21:16:00 Jessica Hurtado MD ([facility]) CANCER ANTIGEN 125 2020-11-13 21:16:00 Jessica Hurtado MD And erson PROTHROMBIN TIME 2020-11-13 21:16:00 Jessica Hurtado MD Dayo son PARTIAL THROMBOPLASTIN TIME 2020-11-13 21:16:00 Jessica Hurtado MD COMPLETE BLOOD COUNT W/ 2020-11-13 21:16:00 Jessica Hurtado DIFFERENTIAL CARCINOEMBRYONIC ANTIGEN 2020-11-13 21:16:00 Jessica Hurtado MD CANCER ANTIGEN 19-9 2020-11-13 21:16:00 Jessica Hurtado MD An codi HEPATITIS C VIRUS ANTIBODY 2020-11-13 21:16:00 Jessica [...] 2020-11-13 21:16:00 Jessica Hurtado MD Dayo son .GLOMERULAR FILTRATION RATE 2020-11-13 21:16:00 Jessica Hurtado MD Results CBC 2020-11-13 21:16:00 Jessica Hurtado MD Hermilo on MANUAL DIFFERENTIAL 2020-11-13 21:16:00 Jessica Hurtado MD HEPATITIS C VIRUS AB SCREEN 2020-11-13 21:16:00 Jessica Hurtado MD W/REFLEX HCV PCR CYTOKINE PANEL 3 FINAL 2020-11-13 21:16:00 Jessica Hurtado MD REPORT HC 2019-NCOV COVID-19 2020-11-11 19:41:00 Jenna Malave MD nderson 2D ECHO W/ DOPPLER 2020-11-01 09:45:23 [facility] OSI CT BX PELVIS 2020-11-01 02:31:15 Jenna Malave MD Hermilo on OSI CT CHEST 2020-11-01 02:31:07 Jenna Malave MD Andericao n CT NEEDLE BIOPSY KIDNEY 2020-10-31 16:30:00 [facility] TISSUE EXAM 2020-10-31 16:29:00 [facility] CT CHEST WITH IV CONTRAST 2020-10-31 15:51:00 Mark Perez CH I [facility] CBC (HEMOGRAM ONLY) 2020-10-31 03:47:00 [facility] BASIC METABOLIC PANEL (7) 2020-10-31 03:47:00 [facility] PHOSPHORUS 2020-10-31 03:47:00 [facility] MAGNESIUM 2020-10-31 03:47:00 [facility] PATHOLOGY OUTSIDE 2020-10-31 00:00:00 Sang Willingham MD CBC (HEMOGRAM ONLY) 2020-10-30 03:44:00 [facility] BASIC METABOLIC PANEL (7) 2020-10-30 03:44:00 [facility] PHOSPHORUS 2020-10-30 03:44:00 [facility] MAGNESIUM 2020-10-30 03:44:00 [facility] PT/APTT 2020-10-30 03:44:00 [facility] D-DIMER 2020-10-30 03:44:00 [facility] FIBRINOGEN 2020-10-30 03:44:00 [facility] VITAMIN B12 2020-10-30 03:44:00 [facility] PERIPHERAL BLOOD SMEAR - 2020-10-30 03:44:00 [facility] ONLY [facility] CYTOLOGY 2020-10-29 10:10:00 Mark Perez [facility] IR PERCUTANEOUS NEPHROSTOMY 2020-10-29 09:44:00 Mark Perez [facility] TUBE PLACEMENT [facility] CBC (HEMOGRAM ONLY) 2020-10-29 03:29:00 [facility] BASIC METABOLIC PANEL (7) 2020-10-29 03:29:00 [facility] PHOSPHORUS 2020-10-29 03:29:00 [facility] MAGNESIUM 2020-10-29 03:29:00 [facility] PROTHROMBIN TIME/INR 2020-10-29 03:29:00 [facility] PLATELET COUNT 2020-10-28 13:19:00 [facility] BASIC METABOLIC PANEL (7) 2020-10-28 04:32:00 [facility] PHOSPHORUS 2020-10-28 04:32:00 [facility] MAGNESIUM 2020-10-28 04:32:00 [facility] CBC (HEMOGRAM ONLY) 2020-10-28 04:32:00 [facility] OSI CT ABDOMEN AND PELVIS 2020-10-28 02:31:00 Jenna Malave MD HAPTOGLOBIN 2020-10-27 12:56:00 [facility] HEPATIC FUNCTION PANEL 2020-10-27 12:52:00 [facility] LACTATE DEHYDROGENASE (LDH) 2020-10-27 12:52:00 [facility] CYTOLOGY 2020-10-27 11:18:00 Mark Perez [facility] US RENAL COMPLETE 2020-10-27 10:15:[address] [facility] [address] ABDOMEN/PELVIS WITH & 2020-10-27 09:05:00 Mark Perez [facility] WITHOUT IV CONTRAST Medical Cent [facility] (MANUAL DIFFERENTIAL) 2020-10-27 03:42:00 [facility] CBC (HEMOGRAM ONLY) 2020-10-27 03:42:00 [facility] BASIC METABOLIC PANEL (7) 2020-10-27 03:42:[address] [facility] PHOSPHORUS 2020-10-27 03:42[facility]00 [facility] 2020-10-27 03:42[facility]00 [facility] PROTHROMBIN TIME/INR 2020-10-27 03:42:00 Mark Perez [facility] APTT 2020-10-27 03:42:00 AnaMark marte [facility] PERIPHERAL BLOOD SMEAR - 2020-10-27 03:42:00 Asuncion Perdomo CH, I [facility] - PATHOLOGIST REVIEW [facility] r RETICULOCYTE COUNT 2020-10-27 03:42:[address] [facility] SARS-COV2/RT-PCR ([facility] 2020-10-26 20:08:00 Crista Wilson [facility] - REF LABS) [facility] ABORH, MANUAL 2020-10-26 20:07:00 Catalina Ferrara [facility] URINE CULTURE 2020-10-26 18:46:00 [facility] URINALYSIS W/ REFLEX URINE 2020-10-26 18:46:00 Gregory [facility] ECG 12-LEAD 2020-10-26 18:19:03 Gregory [facility] TYPE AND SCREEN, AUTOMATED 2020-10-26 17:54:00 [facility] CBC W/PLT COUNT & AUTO 2020-10-26 17:54:00 [facility] COMPREHENSIVE METABOLIC 2020-10-26 17:54:00 Crista Wilson CH, I [facility] PANEL [facility] MAGNESIUM 2020-10-26 17:54:00 [facility]OS[facility]US 2020-10-26 17:54:00 Artemio [facility] Selective catheter 2016-12-24 17:33:00 [facility] Jair placement, common carotid or innominate artery, unilateral, any approach, with angiography of the ipsilateral extracranial carotid circulation and all associated radiological supervision and interpretation, includes angiography of the c Selective catheter 2016-12-24 17:33:00 [facility] Jair placement, internal carotid artery, unilateral, with angiography of the ipsilateral intracranial carotid circulation and all associated radiological supervision and interpretation, includes angiography of the extracranial carotid and ce Primary percutaneous 2016-12-24 17:33:00 Jin Adam transluminal mechanical thrombectomy, noncoronary, non-intracranial, arterial or arterial bypass graft, including fluoroscopic guidance and intraprocedural pharmacological thrombolytic injection(s); initial vessel Inguinal herniotomy [facility] Manipulation of the [facility] Plan of Care Planned Activity Planned Date [...] 00:00:00 (1 of 1 - Medical Center [id number] PCV13) [code = PNEUMOCOCCAL 65+ YRS (1 of 1 - [id number] PCV13)] Encounters Start End Encounter Admission Attending Care Care Encounter Source Date/Time Date/Time Type Type Clinicians Facility Department ID 2020-12-04 Outpatient DENTON CHAWLA [id number] 11:51:36 Micki sherman 2020-12-03 Outpatient DENTON BONNER MDA [id number] 11:31:22 PROVIDER Hermilo sherman 2021-02-16 2021-02-16 Outpatient SHEA MALAVE MDA MDA [id number] 08:04:07 08:04:07 JENNA sherman 2021-01-24 2021-02-05 Inpatient JESSICA TERRY [facility] [id number] 13:46:00 16:41:00 BRONSON sherman 2021-02-04 2021-02-04 Inpatient SHEA TERRY, MDA MDA [id number] MD 11:51:13 12:20:06 BRONSON sherman 2021-02-01 2021-02-01 Inpatient SHEA YORK, MDA MDA [id number] MD 17:20:53 18:00:33 PAUL sherman 2021-02-01 2021-02-01 Inpatient SHEA YORK, MDA MDA [id number] MD 12:55:47 13:13:[address] 2021-02-01 2021-02-01 Inpatient SHEA GARCIA, MDA MDA [id number] MD 03:18:45 03:37:33 NAI sherman 2021-01-31 2021-01-31 Inpatient SHEA GARCIA, MDA MDA [id number] 07:53:57 08:09:08 NAI sherman 2021-01-30 2021-01-30 Inpatient SHEA GARCIA, MDA MDA [id number] 22:06:32 22:16:05 NAI sherman 2021-01-30 2021-01-30 Inpatient SHEA CHOPRA, MDA MDA [id number] 18:00:44 18:04:42 SABINO sherman 2021-01-30 2021-01-30 Inpatient [facility] MDA MDA [id number] 11:07:36 15:14:00 , SANTOS sherman 2021-01-29 2021-01-30 Inpatient [facility] MDA MDA [id number] 11:07:47 09:34:45 , SANTOS sherman 2021-01-28 2021-01-28 Inpatient DAI, MDA MDA [id number] 09:24:20 21:25:14 LORRAINE sherman 2021-01-28 2021-01-28 [facility] MDA [id number] 09:29:05 18:52:15 , SANTOS Akhtar o lane 2021-01-27 2021-01-27 Inpatient ADAMA, MDA MDA [id number] 15:46:11 16:03:47 NAIF jalloh n 2021-01-26 2021-01-26 Inpatient TOMMY MDA MDA [id number] 07:58:05 15:37:10 SANTOSBrayan jalloh n 2021-01-25 2021-01-25 Inpatient DAI, MDA MDA [id number] 16:37:19 16:55:09 LORRAINEBrayan sherman 2021-01-25 2021-01-25 Inpatient ADAMA, MDA MDA [id number] MD 07:43:32 08:16:01 NAIF jalloh n 2021-01-24 2021-01-24 Outpatient SHEA MALAVE, MDA MDA [id number] 12:14:57 13:45:00 JENNA sherman 2021-01-24 2021-01-24 Outpatient SHEA MALAVE, MDA MDA [id number] 09:53:00 09:53:00 JENNA sherman 2021-01-05 2021-01-05 Outpatient SHEA ZARATERAFAELAZOE, MDA MDA [id number] 09:23:36 09:43:11 BREANNE sherman 2020-12-28 2020-12-29 Outpatient SHEA HURTADO, MDA MDA [id number] MD 10:43:37 07:36:47 JESSICA Agrawal rso n 2020-12-28 2020-12-28 Outpatient SHEA HURTADO, MDA MDA [id number] 07:52:55 23:59:00 JESSICA Agrawal rso n 2020-12-28 2020-12-28 Outpatient SHEA MALAVE, MDA MDA [id number] 08:12:22 10:37:19 JENNA sherman 2020-12-27 2020-12-27 Outpatient [facility] MDA MDA [id number] 18:34:00 23:59:00 Hermilo SWANSON 2020-12-07 2020-12-07 Outpatient SHEA HURTADO, MDA MDA [id number] MD 15:33:55 23:59:00 JESSICA Agrawal rso n 2020-12-07 2020-12-07 Outpatient SHEA HURTADO, MDA MDA [id number] 11:15:00 15:32:00 JESSICA Agrawal rso n 2020-12-07 2020-12-07 Outpatient SHEA MALAVE, MDA MDA [id number] 13:39:44 15:14:25 JENNA sherman 2020-12-05 2020-12-05 Outpatient SHEA ROSARIO, MDA MDA [id number] 14:56:00 23:59:00 MARILYN jalloh n 2020-12-05 2020-12-05 Outpatient SHEA HURTADO, MDA MDA [id number] 14:26:22 23:59:00 JESSICA Nghia rso n 2020-12-04 2020-12-04 Outpatient SHEA MALAVE, MDA MDA [id number] MD 11:31:36 23:59:00 JENNA sherman 2020-12-03 2020-12-03 Outpatient SHEA SCHWAB, MDA MDA [id number] 10:27:36 23:59:00 VENECIA sherman 2020-12-03 2020-12-03 Outpatient SHEA SCHWAB, MDA MDA [id number] 10:40:18 11:38:36 VENECIA jalloh n 2020-12-03 2020-12-03 Outpatient SHEA SOSA, MDA MDA [id number] 09:06:25 09:06:25 JC sherman 2020-11-27 2020-11-27 Outpatient ANANDA, MDA MDA [id number] 16:06:37 16:06:37 JENNA sherman 2020-11-27 2020-11-27 Outpatient ANANDA, MDA MDA [id number] 16:05:46 16:05:46 JENNA sherman 2020-11-27 2020-11-27 Outpatient ANANDA, MDA MDA [id number] 15:53:49 15:53:49 JENNA sherman 2020-11-15 2020-11-15 Outpatient SHEA HURTADO, MDA MDA [id number] 12:35:51 12:35:51 JESSICA Nghia rso n 2020-11-13 2020-11-13 Outpatient SHEA HURTADO, MDA MDA [id number] 15:01:27 23:59:00 JESSICA Agrawal rso n 2020-11-13 2020-11-13 Outpatient SHEA MALAVE, MDA MDA [id number] 10:54:47 14:53:38 JENNA Ramoserica sherman 2020-11-13 2020-11-13 Outpatient EL DENTON [facility] [id number] 10:48:25 10:48:56 Hermiloerica sherman 2020-11-11 2020-11-11 Outpatient EL DENTON MALAVE [facility] [id number] 13:24:05 13:24:05 JENNA Akhtar yeimi sherman 2016-12-24 2016-12-26 Outpatient Duane [facility] [id number] 10:59:00 12:30:00 Yue Infante 67 Results Test Description Test Time Test Comments Results Result Comments Source MG/LES Evaluation 2021-02-13 19:50:26 Test Item Value Reference Range Interpretation Comme nts MG LES Interpretation See Footnote The fo llowing antibodies were (test code = 35384-8) identi fied: Muscle AChRBinding, Muscle AChR Mod ulating, Calcium Channel Binding Antibody, N-type, Calcium Channel Binding Antibody,P/Q-ty pe and Striational. * The patient's s pecimen waspreviously evaluated in is laboratory. In comparison toea ier findings, the following is no srinath: Previous positiveresult for Muscle AChR Binding. Curren t result notsignificantl y different. * This profile may be associatedwith multifocal ryan festations of neurologicalaut oimmunity. Considerations include: Myasthenia gravis. Aparane oplastic basis should be considered, according toage, sex, and other risk factors. Considerations include:Lung carcinoma, Thym delisa. * Blayne BARRETT: Serological ana gnosisof myasthenia gravis and dist inction from the Lambert-Eatonmy asthenic syndrome. Neurology 1997; 48(Suppl 5):S23-S27. *Raphael MUNOZ, Haresh LEWIS, Blayne BARRETT: Paraneoplastic antibodiescoexist and predict cancer, not neurological syndrome. AnnNe urol 2004;56(5):715- 719. * Blayne Virk, Marisol Mcknight, Raymundo S, Farhat C, Elisabeth Schmidt, Jose Manuel WEISS, Raphael MUNOZ:Neural Autoa ntibody Clusters Aid Diagnosis of Ca ncer. ClinCancer Res 2014;20(14):386 2-9. * Blayne Wong, [place], eta l: Striational Antibodies in a Paraneoplastic Context.Muscle Nerve 2013; 47: 585-587. * Deepika Hickey, Deepika Barber, Rosalina Cisneros. Fr equency of Synaptic AutoantibodyAcc ompaniments and Neurological Ma nifestations of Thymoma.RHIANNA Ne urology 2016;73:853-859 . P/Q-Type-Martin (test code 0.06 nmol/L See_Commen H -- ADDITIONAL = 52905-5) t INFORMATION---- This test was develo ped and its performance characteristics determined by [facility] in a man ner consistent with CLIArequirement s. This test has not been cleared or approved bythe U.S. Food and Drug A dministration. [Aramsco] The system which generated this result transmitted reference range : <=0.02. The reference range was not used to interpret this result as normal/abnormal . N-Type-Martin (test code = 0.04 nmol/L See_Commen H -- ADDITIONAL 09186-6) t INFORMATION---- This test was develo ped and its performance characteristics determined by [facility] in a man ner consistent with CLIArequirement s. This test has not been cleared or approved bythe U.S. Food and Drug A dministration. [Automated Solicore] The system which generated this result transmitted reference range : <=0.03. The reference range was not used to interpret this result as normal/abnormal . ACHr Binding Ab-Martin 9.8 nmol/L See_Commen H ------ ADDITIONAL (test code = 11960-3) t INFORM ATION This test was develo ped and its performance characteristics determined by [facility] in a man ner consistent with CLIArequirement s. This test has not been cleared or approved bythe U.S. Food and Drug A dministration. [Automated mess age] The system which generated this result transmitted reference range : <=0.02. The reference range was not used to interpret this result as normal/abnormal . ACHr Modul -Martin (test 100 % H -- REFERENCE code = 28881-4) VALUE------- 0-20% (reported as _% loss of AChR) ----ADDITIONAL INFORMATION---- This test was develo ped and its performance characteristics determined by [facility] in a man ner consistent with CLIArequirement s. This test has not been cleared or approved bythe U.S. Food and Drug A dministration. Striate Mscl -Martin See Footnote See_Commen H RESULT: Positive 1:687607 (test code = 18751-0) t ------ ADDITIONAL INFORMATION---- This test was develo ped and its performance characteristics determined by [facility] in a man ner consistent with CLIArequirement s. This test has not been cleared or approved bythe U.S. Food and Drug A dministration. Test Performed by:[place] [id number] Director: Amado gamez M.D. Ph.D.; CLIA# [id number] [Au tomated message] The system which ge nerated this result transmitted ref erence range: <1:120 titer. The refe rence range was not used to interpr et this result as normal/abnormal . Lab Interpretation (test Abnormal code = 99790-8) MD [place] [id number] 23:46:29 Test Item Value Reference Range Interpretation Comments Final Report (test No growth code = 8488) Path Review - Immunity and antibiotic Bottle/Isolator use may render culture (test code = 8499) negative. Ongoing infection requires repeat culture.The results have been reviewed and electronically signed by Pathologist:YUAN KOENIG MD #[id number] IWONA (test code = May collect with morning IWONA) labs [facility] Interventional [id number] 01:42:06 Test Item Value Reference Range Interpretation Comments Final Report (test No Anaerobic Organisms code = 8488) isolated. Path Review - The results have been Anaerobe (test code reviewed and = 8478) electronically signed by Pathologist:YUAN KOENIG MD #[id number] IWONA (test code = Left Nephrostomy IWONA) MD DailySedign[facility] [id number] 13:51:19 Test Item Value Reference Range Interpretation Comments Sed Rate (test code = 9 See_Comment [Auto mated message] The 4537-7) system which ge nerated this result transmit srinath reference range : 0 - 9 mm/hr. The refe rence range was not used to interpret this result as normal/abnormal . MD [facility] [id number] 12:34:30 Test Item Value Reference Range Interpretation Comments CK (test code = 5206) 56 U/L 39-308 CK MB (test code = 7.4 ng/mL See_Comment [Automat ed message] 6572) The system FriendFeed generated this result transmitted ref erence range: <=10.4. The reference range was not used to int erpret this result as normal/abnormal . Troponin T (test code = 182 ng/L See_Comment A < 19 ng/L 9384) S uggest retest at 3 to 6 hours later to rule out myocardial infarction >= 1 9 to <=52 ng/L Possible myocar dial injury. Sugges t retest at 3 tuyet rs. - a change of < 20 ng/L, retest at 6 hours - a susie nge of >= 20 ng/L, suggestive of myocardial infarction > 52 ng/L Sugges tive of myocardial infarction Crit ical value will be reported when c Charity isf > 52 ng/L a nd only reported f or the first in a seri es. Hemolyzed speci mens with Hemolysis Index >100 (100 mg/dl or moderate hemoly sis) may cause interferences a nd falsely low res ults. [Automated mess age] The system FriendFeed generated this result transmitted ref erence range: <=18. Th e reference range was not used to int erpret this result as normal/abnormal . Lab Interpretation Abnormal (test code = 02230-5) MD DailyFractionated [id number] 12:16:25 Test Item Value Reference Range Interpretation Comments Bili Total (test 0.7 mg/dL See_Comment Indocyanine Green (ICG) code = 5096) may cause false ly elevated biliru bin results. Total and direct bilirubin must not be measured from s amples containing indo cyanine green. False el evation of total bilirubin can be seen in patient s with IgG concentrations above 28 g/L. [Automate d message] The system FriendFeed generated this result transmitted ref erence range: <=1.2. T he reference range was not used to interpr et this result as normal/abnormal . Bili Direct (test 0.2 mg/dL See_Comment Indocyanin e Green (ICG) code = 5094) may cause false ly elevated biliru bin results. Total and direct bilirubin must not be measured from s amples containing indo cyanine green. [Automat ed message] The sy stem which generated this result transmitted ref erence range: <=0.3. T he reference range was not used to interpr et this result as normal/abnormal . Bili Indirect (test 0.5 mg/dL 0-0.9 code = 5095) MD DailyPhosphorus Ksdcw2992-07-04 12:16:24 Test Item Value Reference Range Interpretation Comments Phosphorus (test code = 6817) 2.3 mg/dL 2.5-4.5 L Lab Interpretation (test code = Abnormal 67256-2) MD DailyElectrolyte [id number] 12:16:22 Test Item Value Reference Range Interpretation Comments Sodium Lvl (test code = 140 See_Comment [Au tomated message] 6259) The system Friend[employer] generated this result transmitted ref erence range: 136 - 14 5 mEq/L. The refe rence range was not u sed to interpret this result as normal/abnor mal. Potassium Lvl (test code 3.6 See_Comment [A utomated message] = 1332) The system [employer] generated this result transmitted ref erence range: 3.5 - 5. 1 mEq/L. The refe rence range was not u sed to interpret this result as normal/abnor mal. Chloride (test code = 109 See_Comment H [Auto mated message] 5279) The system [employer] generated this result transmitted ref erence range: 98 - 107 mEq/L. The refe rence range was not u sed to interpret this result as normal/abnor mal. CO2 (test code = 5227) 25 See_Comment [Aut omated message] The system [employer] generated this result transmitted ref erence range: 22 - 29 mEq/L. The reference r nick was not used to interpret this result as normal/abnor mal. Anion Gap (test code = 6 See_Comment [Aut omated message] 9325) The system [employer] generated this result transmitted ref erence range: 4 - 14 m Eq/L. The reference r nick was not used to interpret this result as normal/abnor mal. Lab Interpretation (test Abnormal code = 74845-8) MD DailyCalcium Cotuy0347-17-51 12:16:21 Test Item Value Reference Range Interpretation Comments Calcium Lvl (test code = 5258) 7.9 mg/dL 8.4-10.2 L Lab Interpretation (test code = Abnormal 17339-1) MD DailyGlomerular Filtration Njnx3520-71-86 12:16:20 Test Item Value Reference Range Interpretation Comments eGFR-AA (test code 87 See_Comment Normal eG FR: >= 60 = 8062) mL/min/1.73 m2N ote: The eGFR is calculated u sing the CKD-EPI equatio n. The eGFR declines with a ge. eGFR <60 mL/min/1.73 m2 is considered as "decreased". This equation should only be used for patients 18 and older. According to e National Kid[employer] on's Kidney Disease Outcome Quality Initiative (KDO QI) classification and 2012 Kidney Disease Improving Global Outcomes (KDIGO) Clinical Practi ce Guideline, the stage of CK D should be categorized bas ed on estimated GFR. Stage Description GFR mL/min/1.73 m21 Normal or high GFR >=902 Mildly decrease d GFR 60-893a M ildly to moderately decr eased GFR 45-593b Moderat carolina to severely decrea sed GFR 30-444 Severely decreased GFR 15-295 Kid ignacio failure <15 [Automa srinath message] The system [employer]Feed generated this result tra nsmitted reference range : >=60 mL/min/1.73 sq. m. The reference range was not used to interpret th is result as normal/abnormal . eGFR-RODDY (test code 76 See_Comment Normal e GFR: >= 60 = 8063) mL/min/1.73 m2N ote: The eGFR is calculated u sing the CKD-EPI equatio n. The eGFR declines with a ge. eGFR <60 mL/min/1.73 m2 is considered as "decreased". This equation should only be used for patients 18 and older. According to th e National Kidney [employer] on's Kidney Disease Outcome Quality Initiative (KDO QI) classification and 2012 Kidney Disease Improving Global Outcomes (KDIGO) Clinical Practi ce Guideline, the stage of CK D should be categorized bas ed on estimated GFR. Stage Description GFR mL/min/1.73 m21 Normal or high GFR >=902 Mildly decrease d GFR 60-893a M ildly to moderately decr eased GFR 45-593b Moderat carolina to severely decrea sed GFR 30-444 Severely decreased GFR 15-295 Kid ignacio failure <15 [Automa srinath message] The system [employer]Feed generated this result tra nsmitted reference range : >=60 mL/min/1.73 sq. m. The reference range was not used to interpret th is result as normal/abnormal . MD DailyAlbumin Bswom8536-84-21 12:16:19 Test Item Value Reference Range Interpretation Comments Albumin Lvl (test code = 2.5 See_Comment L [A utomated message] 1026) The system [employer] generated this result transmitted ref erence range: 3.5 - 5. 2 gm/dL. The refe rence range was not u sed to interpret this result as normal/abnor mal. Lab Interpretation (test Abnormal code = 56567-5) MD DailyTotal Bkcfdhg3141-64-97 12:16:18 Test Item Value Reference Range Interpretation Comments Total Protein (test code = 7649) 4.1 g/dL 6.4-8.3 L Lab Interpretation (test code = Abnormal 78793-3) MD DailyAspartate Ejbczfiiyvqaodae6187-13-72 12:16:17 Test Item Value Reference Range Interpretation Comments AST (test code = 27 U/L See_Comment [Automated message] The 4731) system which ge nerated this result transmit srinath reference range : <=40. The reference range was not used to interpr et this result as opal l/abnormal. MD DailyMagnesium Fykcm9310-93-76 12:16:16 Test Item Value Reference Range Interpretation Comments Magnesium (test code = 6359) 2.0 mg/dL 1.6-2.6 MD DailyAlkaline Dyxcnuckkte2886-57-45 12:16:14 Test Item Value Reference Range Interpretation Comments Alk Phos (test code = 4768) 44 U/L 40-129 MD DailyGlucose Nzmtz4570-40-43 12:16:13 Test Item Value Reference Range Interpretation Comments Glucose Level (test code 108 mg/dL 70-99 H Eff ective 06/25/16, = [...] associ ated with increased risk for diabetes Lab Interpretation (test Abnormal code = 89979-4) MD DailyDbewjpssFDM2180-09-75 12:16:12 Test Item Value Reference Range Interpretation Comments ALT (test code = 4705) 42 U/L See_Comment H [Aut omated message] The system whic h generated this result transmitted ref erence range: <=41. Th e reference range was not used to int erpret this result as normal/abnormal . Lab Interpretation (test Abnormal code = 63919-4) MD Daily.Serum Qohlvmfyyz2242-56-69 12:16:11 Test Item Value Reference Range Interpretation Comments Creatinine (test code = 5399) 0.92 mg/dL 0.67-1.17 MD DailyYpfqiuxkXSU0976-34-60 12:16:10 Test Item Value Reference Range Interpretation Comments BUN (test code = 5055) 24 mg/dL 6-23 H Lab Interpretation (test code = Abnormal 98049-8) MD DailyOcxhszjzIGC6960-68-18 12:16:09 Test Item Value Reference Range Interpretation Comments CRP (test code = 1.63 mg/L Reference r ana cristinaes for HS CRP 5235) assay are as fo llows: Reference range s when used to assess cardi ac risk: <1.00 mg/L Low cardiovascular risk 1.00-3.00 mg/L Average cardiovascular risk >3.00 mg/L High cardi ovascular risk.Reference ranges when used to assess inflammatory responses: Les s than or equal to 10.00 mg/L. MD DailyNT-Pro BNP (In-House)2021-02-05 12:11:28 Test Item Value Reference Range Interpretation Comments NT ProBNP (test code = 456 pg/mL See_Comment H [Aut omated message] 8564) The system FriendFeed generated this result transmit srinath reference range : <=450. The refe rence range was not u sed to interpret th is result as normal/abnormal . Lab Interpretation (test Abnormal code = 37283-0) MD DailyHvgavcxxQuycngchfj3698-67-09 12:00:46 Test Item Value Reference Range Interpretation Comments Fibrinogen (test code = 5610) 167 mg/dL 214-503 L Lab Interpretation (test code = Abnormal 33224-2) MD DailyOzihjawyQybjvrbmlvxe2764-78-77 11:49:54 Test Item Value Reference Range Interpretation Comments Neutrophil % (test code = 79.4 % 42-66 H 51612-4) Lymphocyte % (test code = 11.3 % 24-44 L 737-7) Monocyte % (test code = 7.6 % 2-7 H 744-3) Eosinophil % (test code = 0.3 % 1-4 L 713-8) Basophil % (test code = 0.1 % 0-1 707-0) IGRE % (test code = 1.3 % 0-0.4 H IGRE % c ount 42850-8) includes Metamyelocytes, Myelocytes, and Promyelocytes. Neutrophil Abs (test code 5.41 K/uL 1.7-7.3 = 753-4) Lymphocyte Abs (test code 0.77 K/uL 1-4.8 L = 732-8) Monocyte Abs (test code = 0.52 K/uL 0.08-0.7 743-5) Eosinophil Abs (test code 0.02 K/uL 0.04-0.4 L = 712-0) Basophil Abs (test code = 0.01 K/uL 0-0.1 705-4) IG Abs (test code = 0.09 K/uL 0-0.04 H 28827-6) Lab Interpretation (test Abnormal code = 27084-1) MD Daily.OFQ3036-93-40 11:49:52 Test Item Value Reference Range Interpretation Comments WBC (test code = 6.8 K/uL 4-11 6690-2) RBC (test code = 789-8) 3.52 See_Comment L [Au tomated message] The system FriendFeed generated this result transmitted ref erence range: 4.50 - 6 .00 M/uL. The refer ence range was not u sed to interpret this result as normal/abnor mal. Hgb (test code = 718-7) 10.5 See_Comment L [Au tomated message] The system FriendFeed generated this result transmitted ref erence range: 14.0 - 1 8.0 gm/dL. The refe rence range was not u sed to interpret this result as normal/abnor mal. Hct (test code = 31.0 % 40-54 L 4544-3) MPV (test code = 787-2) 12.3 fL 4-10.4 H MCH (test code = 785-6) 29.8 pg 27-31 MCHC (test code = 33.9 See_Comment [Automate d message] 786-4) The system FriendFeed generated this result transmitted ref erence range: 31.0 - 3 6.0 gm/dL. The refe rence range was not u sed to interpret this result as normal/abnor mal. RDW-SD (test code = 43.9 fL 35.1-46.3 95951-3) RDW-CV (test code = 13.8 % 12-15.5 788-0) Platelet count (test 77 K/uL 140-440 L code = 777-3) INRBC (test code = 0.0 % See_Comment The INRBC (instrument 5974) NRBC) value ref lects the enumeration of nucleated red b lood cells contained in a 200uL sampleof whole blood analyzed by the instrument. Thi s value maydiffer from the NRBC value repo rted in a manual differential,wh ich is based on a 100 cell differential. [Automated mess age] The system [facility] [employer] generated this result transmitted ref erence range: <=0.0. T he reference range was not used to int erpret this result as normal/abnormal . Lab Interpretation Abnormal (test code = 42211-7) MD Garcia Leg Venous Doppler Jndeqmfnr5174-66-34 14:13:50 Negative for deep venous thrombosis in the bilateral lower extremities. I personally reviewed theseimage(s) along with the resident's/fellow's interpretations, certify that if a procedure was performed I was physically present, and agree with the final report.Interface, Radiology Results In - 02/04/2021 8:16 AM CSTFULL RESULT:Examination: US LEG VENOUS DOPPLER BILATERAL, 02/03/2021 8:31 PMClinical Hi story: Left ureteral neoplasmIndication: Pain Comparison: NoneTechnique: Grayscale and color/spectral Doppler ultrasound of the bilateral lower extremity veins was performed.Findings: The bilateral common femoral, femoral, and popliteal veins demonstrate color flow, compressibility, and response to au gmentation. The visualized posterior tibial, peroneal and anterior tibial veins are patent and compressible.Bilateral lower extremity edema noted.IMPRESSION:Negative for deep venous thrombosis in the bilateral lower extremities.I personally reviewed these image(s) along with the resident's/fellow's interpretations, certify that if a procedure was performed I was physically present, and agree with thefinal report.MD Burnett Miscellaneous Mpyo3412-44-14 13:20:25 Test Item Value Reference Range Interpretation Comments Leo RL Test See Footnote Test Result (test Result code = 6385) Flag Unit RefValue------- ----- ----- ----- See Footnote See Footnote RESULT: LRP4 Autoantibody Te st Testing is comp lete. Final report nieves s been sent to th e referring laboratory. Note: There may be a delay of up to 2 hour s before repor t is available to vi ew in [facility]. Test Performed by: [facility] [address] [address] IWONA (test code LRP4 Autoantibody = IWONA) Test MD DailyACh Receptor [id number] 22:05:28 Test Item Value Reference Interpretation Comments Range ACHr Binding 2.97 nmol/L See_Comment H -----ADDITION Ab-Martin (test code AL = 55777-8) INFORMATION---- --This test was developed and its perform ance characteristics determined by [facility] in a manner consistent with CLIArequirement s. This test has not been cl eared or approved bythe U.S. Food and Drug Administra tion. Test Performed by:[place] [id number] Director: Missael Nation M.D. Ph.D.; CLI A# [id number] [Automated [facility]] The system which ge nerated this result transmit srinath reference range: <=0.02. The reference range was not u sed to interpret this result as normal/abnormal . Lab Interpretation Abnormal (test code = 16246-3) MD DailyUrine Kkscnid3593-58-84 21:21:32 Test Item Value Reference Range Interpretation Comments Final Report (test code 51-99,999 cfu/ml A = 8488) Mixture of three or more enteric organisms present. Further identification upon request within 5 days....Staphylococcus aureus Unable to quantitate due to overgrowth of Gram Negative Rods Path Review - Urine Presence of several A (test code = 8483) different organisms indicates specimen of poor quality and likely contaminated with normal fecal saqib. Recommend submission of new specimen if clinical indicated....The results have been reviewed and electronically signed by Pathologist:Lucas Mendoza MD, PhD #[id number] Lab Interpretation Abnormal (test code = 82486-9) MD DailyTMP HIV 1/2 Ag&Ab Path Ecyyfj2382-37-33 14:58:31 Test Item Value Reference Range Interpretation Comments HIV 1/2 Ag&Ab Negative for Interp (test HIV-1 antigen and code = 9394) HIV-1/HIV-2 ____ALEK MCCORMACK antibodies. No JEANNIE JIMENES MD laboratory - [id number] by: evidence of HIV ALKE Schmidt infection. If JEANNIE JIMENES MD acute HIV - 69556Odxymmvq infection is Date/Time: suspected, 8:58 AM [employer]ARER consider testing Transcribed Date/Time: for HIV-1 RNA. 02.02.2021 8: 58 AM CSTElectronical ly Signed By: ALEK CRUZ MD - [id number] on 8:58 AM Jaylene DailyHIV-1/2 Antigen and Antibodies, Fourth Pgpejpgttl7879-72-44 02:45:43 Test Item Value Reference Range Interpretation Comments HIV 1/2 Ag & Ab, Non Reactive Non Reactive Performed a t: 4th Gen (test code [facility] = 9280) [address] [place], [place] [address] MD DailyYkpvltflGCI3862-23-17 17:48:50Luis Bellamy MD 02/01/2021 12:21 PMEMG/ NCS REPORT. IMPRESSION: 1. Findings in keeping withhis long standing history of neuropathy (began age 40 yrs). 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 2. No findings for myopathy.3. In keeping with known hx of lumbar back surgery, mostly chronic right lumbar L5 radiculopathy findings are noted. CLINICAL HISTORY: Patient is 85 y.o. 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 His medical history significant for CKD stage III, atrial fibrillation on Eliquis/sotalol and hypertension.[facility] He was initiated on upfront immunotherapy and received cycle #1 of pembrolizumab on 12/07/2020 and cycle #2 on 12/28/2020. Admitted on 2/25/21 for sob, and concern for myocarditis. CK -highest 182 and now 25, aldolase highest 37 at admission. He is now s/p TPE, high dose steroids. EMG requested for associated myopathy.Pt with long standing hx of neuropathy before cancer diagnosis dating back to 40 yrs after normal college years. Using walker last 3 yrs. No fmhx of neuropathyAlso with back hx and s/p lumbar surgeries. Exam: ankles-4, hand intrinsics 4+. Proximal leg- 3+. Proximal arm 5. This EMG test is performed using Accellion/Textura machine. FINDINGS:Bilateral sural, bilateral radial, bilateral median, ulnar are absent. bilateral peroneal at EDB, bilateral tibial are absent. Bilateral peroneal at TA- moderately low amplitude and minimal latency prolongation and normal CV. BILATERAL MEDIAN AND ULNAR MODERATELY LOW AMPLITUDE, MINIMAL DL prolongation, CV- 38 M/S, RIGHT RADIAL similar findings with CV 40 m/s below forearm and 130 m/s across spiral groove. f waves in upper extremity m inimal prolongation (f estimate). After verbal consent, needle examination was performed the right upper and lower extremity using disposable concentric needle. Deltoid, triceps, EDC, FCU normal. ADM- 2+ denervation and inc duration units with rare polyphasia. Right TA 1 + denervation, polyphasia and mild to moderately reduced. Right gastro mildly reduced. Right vastus mildly reduced. Right hamstrings 1-2 + denervation and reduced recruitment. Right iliopsoas normal. Right TFL- rare polyphasiaMD AndersonCOVID-19 (SARS-CoV-2) PCR- Asymptomatic [id number] 06:21:14 Test Item Value Reference Range Interpretation Comments COVID19 (SARS Not Detected Not Detected This test is a CoV-2) Result qualitative (test code = reverse-transcr iptase 09356-3) polymerase reina n reaction (RT-PC R) developed for t he [facility] LOTUS 680 0 system and inte nded for the detecti on of SARS CoV-2 RNA in human nasophary ngeal specimens from patients who me et COVID-19 clinic al and/or epidemiological criteria. This assay has been approv ed by the FDA for use only under Emergency Use Authorization ( EUA) in laboratories that have been CLIA-certified to perform moderate-comple xity and high-comple xity tests. The performance characteristics of this assay were verified by the Microbiology Laboratory at [facility] [place], CLIA Accreditation # : [id number] and CAP Accreditation # : [id number]. Result s must be interpreted within the context of all relevant clinic al and laboratory find ings and should not form the sole basis for a diagnosis or treatment decis ion. "Presumptive Positive" resul ts are due to partial amplification o f SARS-CoV-2 targ ets and indicates l ow amounts of viru s present in the specimen at or near the limit of detection. Regardless, individuals wit h "Presumptive Positive" resul ts should be manag ed per institutional guidelines as individuals pos itive for SARS-CoV-2 virus, including use o f appropriate inf ection control protoco ls. Internal contro ls are included to ass ess for possible amplification inhibitors. If inhibition is detected, testi ng is repeated and if inhibition is confirmed the specimen is res ulted as "Invalid". W hen an "Invalid" resul t occur, it is recommended to wait 3 days before submitting a ne w specimen for te sting if clinically indicated. COVID19 SARS PROGRAM MANAGEMENT SPECIALIST Swab Source (test code = 68412) COVID19 SARS Inpatient Indication (test Admission code = 27662) MD [facility] Glucose [id number] 21:02:23 Test Item Value Reference Range Interpretation Comments POC Glucose (test 132 mg/dL 70-99 H Capillary blood code = 39617-6) samples, e.g . obtained by fingerstick, may have inaccurate results in patients wit h decreased perip heral blood flow. Met hod description: Al l results are candie sured using Electroch emistry test methodolog y. The glucose in the sample mixes with the reagents on the test str ip. The reaction produc es an electric curren t. The amount of curre nt produced is proportional to the glucose concent ration in the blood. PO Sample Type (test Capillary code = 9554) Lab Interpretation Abnormal (test code = 08513-3) MD DailyT-spot Ohzsaokbgkrk9743-81-24 23:37:40 Test Item Value Reference Range Interpretation Comments Tspot TB NIL Cont 0 (test code = 9396) Tspot TB Panel A 0 (test code = 9397) Tspot TB Panel B 0 (test code = 9398) Tspot TB Pos Cont TMTC NOTE: TMTC INDICATES TOO (test code = 9399) MANY SPOT S TO COUNT. SAT INDICATES THE W ELL WAS SATURATED. Tspot TB (test code Negative Negative Performi ng Lab:[facility] = 7663) [address] [place] [address] Tspot TB Interp See Note Results Inte rpretation: (test code = 9400) Results a re Negative when (Panel A - NIL) and (Panel B - NIL) 4 spo ts, including value s less than zero.Results ar e Positive when (Panel A - NIL) and (Panel B - NIL) 8 spots.Results a re Borderline when either (Panel A - NIL) and (Panel B - NIL) = 5, 6 , or 7. The test is invalid when either of the f ollowing conditions is m et:1.) The NIL Control has > 10 spots.2.) The M itogen (Positive Contr ol) has <20 spots and both (Panel A - NIL) and (Panel B - NIL) 4 spots. M. tub erculosis infection canno t be excluded when:1 . Any illness is cons istent with TB disease.2. L ikelihood of progression to disease (e.g. Due to Immunosuppressi on) is increased. Limi tations Diagnosing or e xcluding Tuberculosis di sease, and assessing the p robability of LTBI, requir es a combination of Epidemiological , historical, med ical and diagnostic find ings that should be taken in to account when in terpreting T-Spot.TB refer to the most recent CDC guidance(http:/ www.cdc.gov /nchstp/tb) for detailed recommendations about diagnosing TB i nfections (including dise ase) and selecting perso ns for testing. 1.) A false negative result can be caused by incor rect blood sample collecti on or improper handli ng of the specimen, affec ting lymphocyte func tion.2.) The performance of T-Spot.TB has n ot been adequately eval uated with specimens from individuals younger than ag e 17 years, in wom en, and in patients with Hemophilia.3.) A false positive result was obtained for T- Spot.TB when tested in subjects with M. xenopi, M. kansasii, and M . gordonae. While ESAT-8 an d CFP-10 antigens are ab sent from BCG strains of M. bovis and from most environmental Mycobacteria, i t is possible that a positive T-Spot.TB resul t may be due to infectio n with M. kansasii, M. sz ulgai, M. gordoae, or M. marinum. Alternative martinez ts would be required if the se infections are suspected.4.) A negative test result alvarez s not exclude the pos sibility of exposure to, or infection with M. tubercu losis. Patients with r ecent exposure to TB infected individuals exh ibiting a negative T-Spot .TB result should be consi dered for retesting withi n 6 weeks or if other rel evant clinical sysmpt oms indicate possib le infection.5.) A positive test result alvarez s not rule in active TB di sease; other tests shakir uld be performed to co nfirm the diagnosis of ac tive TB disease such as sputum smear and cultu re, PCR and chest radiograp hy.6.) T-Spot.TB test has not been evaluated in subjects who have receiv ed > 1 month Anti-TB t herapy.7.) Refrigerated an d frozen samples are not recommended for use with T-Spot.TB test. MD DailyC3 Siretgjfkl8764-45-53 22:25:27 Test Item Value Reference Range Interpretation Comments C3-Martin (test code = 63 mg/dL 75-175 L Test P erformed 4485-9) by:[facility] [employer] [address] [employer] [address], [facility] [place], [place] [address]Nip Dir mark anthony: Amado gamez M.D. Ph.D.; CLI A# [id number] Lab Interpretation (test Abnormal code = 87647-8) MD DailyC4 Finuwvsrgl2570-73-11 22:25:26 Test Item Value Reference Range Interpretation Comments C4-Martin (test code = 13 mg/dL 14-40 L Test P erformed 4498-2) by:[facility] [employer] [address] [employer] [address], [facility] [place], [place] [address]Eat Dir mark anthony: Amado gamez M.D. Ph.D.; CLI A# [id number] Lab Interpretation (test Abnormal code = 73360-8) MD DailyPreparbennett fresh frozen plasma:Transfusion Date: 01/30/2021; Transfusion Indications: Therapeutic Plasma Exchange; G1844, 11 Lszcz5248-39-91 18:38:11 Test Item Value Reference Range Interpretation Comments FFP Product Ready Plasma Exchange Fresh Leeanne ta (test code = Plasma Availabl e - 18926-3) Order Form 03 w hen ready for produ ct issue. Unit Number (test [id number] code = 7002) Product Code (test [id number] code = 7003) Unit Expiration [id number] (test code = 824523) Unit Blood Type 6200 (test code = 7004) Product Code Text PLASMA IR CPD (test code = 469173) Unit Irradiated IRRADIATED (test code = 820599) Dispense Status ISSUED (test code = 7001) Unit Blood Type A Positive (test code = 7005) _ MD DailyCytoplasmic Neutrophil Jpdwaycgmp4863-12-84 18:30:26 Test Item Value Reference Range Interpretation Comments RFC Negative Negative ANCA-Leo (test code = 51586-9) RFP Negative Negative Negative for cA NCA and pANCA ANCA-Leo patterns by imm unofluorescence. (test code = ----ADDITIONAL 74116-8) INFORMATION---- Thi s test was abhay chawla and its performance characteristics determined by [facility] in a man ner consistent with CLIArequir ements. This test has not been cl eared or approved bythe U.S. Food and Drug Administration. Test Performed by:[facility] ior [address] [place], [place] [address]Ban Direct or: Amado Nation M.D. Ph. D.; CLIA# [id number] MD Christie Mazariegos2021-03-03 17:48:30 Test Item Value Reference Range Interpretation Comments MuSK Ab-Leo 0 nmol/L 0-0.02 A negative resu lt does not (test code = exclude the ana gnosis 72597-6) ofautoimmune my asthenia gravis. Testing for acetylcholinere ceptor binding and modulating antibodies, and striationalanti body should be considered. ----ADDITIONAL INFORMATION---- T his test was de veloped using an analyte specifi c reagent.Its performance susie racteristics were determined by [facility] in a manner con sistent with KHANH brown. Thistest has not been cleare d or approved by the U.S. Food a ndDrug Administration. Test Performed by:[address] [address]Wom Direct or: Amado Nation M.D. Ph. D.; CLIA# [id number] MD DailyAnti-Neutrophil Cytoplasmic Antibodies Vascultitis [id number] 15:02:31 Test Item Value Reference Range Interpretation Comments Myeloperox Ab-Leo <0.2 See_Comment [Automat ed message] The (test code = 79938-2) system which generated this result tra nsmitted reference range : <0.4 (Negative) Unit s. The reference range was not used to interpr et this result as normal/abnormal . Proteinase 3 Ab-Leo <0.2 See_Comment Test P erformed by:Martin (test code = 74251-2) [facility] [employer] ior [address] [employer] [place], [place] [address]Fuk Direct or: Amado gamez M.D. Ph.D.; CLIA# [id number] [Automated mess age] The system which ge nerated this result tra nsmitted reference range : <0.4 (Negative) Unit s. The reference range was not used to interpr et this result as normal/abnormal . MD Dowell Myocardium with and without Xyzxfvdm8868-14-45 17:05:15Normal cardiac function with no evidence of myocarditis.Interface, Radiology Results In - 111:07 AM CSTFULL RESULT:Examination: MRI CARDIAC W WO CONTRAST on 01/28/2021 9:20 AMClinical History: Left ureteral neoplasmIndication: myocarditis from pembroComparison: Chest CT 01/24/2021Technique: Multisequence multiplanar imaging of the heart is performed without and with intravenous contrast.Finding s:No mediastinal adenopathy. There is consolidation in the right lung base. No obvious pulmonary nodules. Hepatic cysts.Cardiac chamber sizes are normal in size. Mitral, tricuspid and aortic valve function appear normal. Left ventricular function appears normal with no focal wall motion abnormality, ed babar, perfusion abnormality or abnormal delayed enhancement.Left ventricular septal myocardium:NativeT1 838 ms, T2 54 ms, post contrast T1 372 ms.Blood pool:Samish T1 1613 ms, post contrast T1 235 ms.Most recent hematocrit 01/29/2021 45% %. Calculated ECV 23 %ECV=(1"hematocrit)(1/R2enamxmw"1/H7tpwqty)/(1 /U5veoqivdkh"1/U1rpqemxrq)Left ventricular functional parameters:End-diastolic volume 70 mLEnd-systolic volume 22 mLStroke volume 46 mLEjection fraction 65 %End-diastolic mass 75 gIMPRESSION:Normal cardiac function with no evidence of myocarditis.MD DailyGeneral Laboratory Add-On [id number] 13:45:32 Test Item Value Reference Range Interpretation Comments Ordered (test code = Test Added 6568) Test Needed (test code = magnesium/phosphorus 7604) MD DailyAntinuclear Antibody (CARLOS) HEp-2 Substrate, [id number] 03:15:31 Test Item Value Reference Interpretation Comments Range CARLOS HEp-2 Substrate Positive See_Comment A ------- ADD (test code = 1:320 ITIONAL 18884-2) INFORMATION---- -------- -------Method: Immunofluoresce nce using HEp-2 natali lular substrate. [Au tomated message] The sy stem which generated this result transmit srinath reference range : <1:80 (Negative). The reference range was not used to interpr et this result as normal/abnormal . CARLOS Titer 1 (test 1:320 code = 28057-2) CARLOS Pattern 1 (test Speckled Test Pe rformed by:Martin code = 10152-2) [facility] [employer] [address], [place], [place] [address]Apd Direct or: Amado gamez M.D. Ph.D.; CLIA# [id number] Lab Interpretation Abnormal (test code = 84343-8) MD Solis NON-TARGET MUSCLE [id number] 00:06:13Date of Procedure: 01/28/21 Attending Physician: Jem Rivera MD Pumper Gauger Apprentice: None Pre Procedure Diagnosis: Bladder cancer [148809] Post Procedure Diagnosis: Unchanged Indication: Research sampling and asess for myositis Protocol Number: [id number] Title of Procedure:Percutaneous Ultrasound-Guided Biopsy Operative Findings: Percutaneous image-guided biopsy of right quadriceps muscle. Consent: The procedure, risks, indications and alternatives were explained. All questions were answered and informed consent was obtained. I have reviewed the history and physical dictated by the mid-level practitioner / fellow. Sedation/Anesthesia: Moderate sedation for pain control and anxiety was administered by a dedicated nurse under my supervision. There was continuous monitoring of oxygen saturation, heart rate and intermittent monitoring of blood pressure during the procedure. Medication given was midazolam and fentanyl. I was present for the administration of the medications indicated above.P rocedure Events Event Event Time Sedation Start 01/28/2021 11:28 AM Sedation End 01/28/2021 12:30 PM Procedure in Detail: A time out was performed prior to the start of the procedure and the correct patient, procedure, presence of consent, site, and side were confirmed with all members of the team. With the patient in the supine position, the skin overlying the area of interest was prepped and draped in the usual sterile fashion. Lidocaine 1% was used for local anesthesia. Using an anterior approachunder Ultrasound image-guidance, a 13 gauge needle was advanced down to the right quadriceps muscle.An image was obtained and placed into the medical record. Samples were obtained for evaluation. Sampling: Core Biopsy: A 14 gauge needle used to obtain samples for surgical pathology evaluation. Total number of samples: 4 Research Biopsy: A 14 gauge needle was used to obtain 4 core samples as per protocol. Specimens Disposition: Diagnostic Biopsy: The biopsy samples were submitted to pathology. Research Biopsy: The samples were submitted to the appropriate research staff in the designated media as outlined in the protocol. Additional Comments: None Estimated Blood Loss: Minimal Immediate Complications: None Disposition: PACU Plan: 1. No follow-up with Interventional Radiology required. MD Solis NEPHROSTOMY [id number] 00:02:00Date of Procedure: 01/28/21 Attending Physician: Jem Rivera MD Pumper Gauger Apprentice: None Pre Procedure Diagnosis: Post Procedure Diagnosis: Unchanged Indication: Routine exchange Title of Procedure:Percutaneous Image-Guided Exchange of nephroureteral Catheter(s) Operative Findings: Percutaneous image-guided exchange of left nephroureteral catheter(s). Consent: The procedure, risks, indications and alternatives were explained. All questions were answered and informed consent was obtained. I have reviewed the history and physical dictated by the mid-level practitioner / fellow. Sedation/Anesthesia: Moderate sedation for pain control and anxiety was administered by a dedicated nurse under my supervision. There was continuous monitoring of oxygen saturation, heart rate and intermittent monitoringof blood pressure during the procedure. Medication given was midazolam and fentanyl. I was present for the administration of the medications indicated above.Procedure Events Event Event Time Sedation Start 01/28/2021 11:28 AM Sedation End 01/28/2021 12:30 PM Procedure in Detail: A time out was performed prior to the start of the procedure and the correct patient, procedure, presence of consent, site, and side were confirmed with all members of the team. The patient was placed in a right lateral decubitus position on the fluoroscopy table and the catheter(s) and insertion site(s) were prepped anddraped in the usual sterile fashion. Lidocaine 1% was used for local anesthesia. A scuba instructor view was obtained of the catheter. A left nephrostogram confirmed catheter position in the renal pelvis. The catheter was severed and exchanged over a wire for a new 10 Djiboutian x 26 cm nephroureteral catheter. Repeat nephrostogram demonstrates adequate position in the renal pelvis. The catheter was secured tothe patient with suture. Additional Comments: None Estimated Blood Loss: Minimal Specimens Removed: No Immediate Complications: None Disposition: PACU Plan: Catheter to gravity drainage. Return for routine exchange in 3 months.MD Carcamo Gen Order 1 2021-01-28 20:36:22 Test Item Value Reference Interpretation Comments Range [facility] Test 1-ARUP SEE NOTE A Test name (test code = 6416) Result F lag Units RefIntvl------- Ti tin Antibody >2.71 H IV 0.00-0.45IN TERPRETIVE INFORMATION: Ti tin Antibody Negative ...... .. 0.00 - 0.45 IV Indete rminate ... 0.46 - 0.71 IV Positive ........ 0.72 I V or greaterThe pres ence of titin antibody is ass ociated with late onset ofmy asthenia gravis (MG) and a variable risk for thymom a. Titinantibody m ay be detected in 20- 40 percent of all patients wi th MG;higher frequency in ol sonu population as a whole.This test was develo ped and its performance characteristics determined by [employer]. It has not been cleare d orapproved by the US Food and Drug Administration. This test wasperformed in a CLIA certified labor atory and is intended forcli nical purposes.Perfor med By: [employer] [place] [address]Ywrjoyqyzr Director: MD IWONA Lozano (test code = Titin IWONA) Antibody Lab Interpretation Abnormal (test code = 08422-1) MD Keating B Core Total [id number] 17:05:27 Test Item Value Reference Range Interpretation Comments HBc Total Ab-Martin Negative Negative Test Perf ormed by:Martin (test code = [facility] - 42519-2) [facility] ior [address] [facility] ior [address] [place], [place] [address]Pmb Director: Missael Nation M.D. Ph. D.; CLIA# [id number] [place] Hepatitis C Virus Ab Screen, Reflex HCV [id number] 16:59:19 Test Item Value Reference Range Interpretation Comments HCV Ab Screen-Martin Negative Negative Signal-to -cutoff ratio is (test code = <1.00. Test Per formed 14279-9) by:[facility] [place], [place] [address]Lab Director: Missael Nation M.D. Ph. D.; CLIA# [id number] MD Keating B Surface Ag w/[id number] 16:41:53 Test Item Value Reference Range Interpretation Comments Hep Bs Ag-Martin Negative Negative Test Perform ed by:Martin (test code = [facility] - 5196-1) [facility] [address] , [place], [place] [address]Dej Director: Missael Nation M.D. Ph. D.; IA# [id number] MD DailyAlbumin Level [id number] 05:49:09 Test Item Value Reference Range Interpretation Comments Urine Albumin (test 16.24 mg/dL Normal r nick note code = 9375) available for collections les s than 24 hours i n duration. U Creatinine (test 127.8 mg/dL 40-278 The refer ence range code = 7725) listed is for f irst morning urine collection. Albumin/Creatinine 127 mg/g See_Comment H Reference interval: Ratio (ACR) (test code <30 m g/g = 9377) Interpretive comment: The presence of increased urina ry albumin excreti on (albuminuria) i s a clinically sens itive and predictive indicator of ch ronic kidney disease. Albuminuria is determined by urinary albumin to creatinine rati o (UACR) in a ran dom spot urine or a 24-hour collect ion. Normal: <30 mg/gModerately increased: 30-3 00 mg/gSeverely increased: >300 mg/g [Automated mes pillo] The system [employer] generated this result transmit srinath reference range : <=29. The refer ence range was not u sed to interpret th is result as normal/abnormal . Lab Interpretation Abnormal (test code = 98122-1) MD DailyChloride [id number] 00:09:10 Test Item Value Reference Range Interpretation Comments U Chloride (test code = <20 mEq/L Norm al range not 7709) available for c ollections less than 24 ho urs in duration. MD DailyPotassium [id number] 00:09:09 Test Item Value Reference Range Interpretation Comments U Potassium (test code 57 mEq/L Opal l range not = 7802) available for c ollections less than 24 ho urs in duration. MD DailySodium [id number] 00:09:08 Test Item Value Reference Range Interpretation Comments U Sodium (test code = 23 mEq/L Normal range not available 7809) for collections less than 24 hours in dur ation. MD DailyProtein/Creatinine Ratio [id number] 00:09:06 Test Item Value Reference Range Interpretation Comments UTP Ran (test code = 49 mg/dL Normal range not 7922) available for collections les s than 24 hours i n duration. U Creatinine (test code 127.8 mg/dL 40-278 The reference range = 7725) listed is for f irst morning urine collection. U Prot/Creat (test code 0.38 g/g See_Comment H [Au tomated = 4685) message] The sy stem which generated this result transmitted reference range : <=0.14. The reference range was not used to interpret this result as normal/abnormal . Lab Interpretation Abnormal (test code = 38116-8) MD DailyCreatinine [id number] 00:09:05 Test Item Value Reference Range Interpretation Comments U Creatinine (test 127.8 mg/dL 40-278 The refer ence range code = 7725) listed is for f irst morning urine collection. MD DailyUS [id number] 20:17:14No hydronephrosis. I personally reviewed these image(s) along with the resident's/fellow's interpretations, certify that if a procedure was performed I was physically present, and agree with the final report.Interface, Radiology Results In - 01/27/2021 2:19 PM CSTFULL RESULT:Examination: US RENAL, 01/27/2021 12:48 PM.Clinical History: Left ureteral neoplasm..Indication: Increased Creatinine Level.Comparison: CT abdomen/pelvis 01/24/2021.Technique: Welch scale and color Doppler evaluation of the kidneys and limited evaluation of the urinary bladder was performed.Findings: Right kidney:Size:9.7 cm.Cysts/masses:None observed.Hydronephrosis:None.Nephrolithiasis:None.Left kidney:Size:9.9 cm.Cysts/masses:None observed.Hydronephrosis:None.Nephrolithiasis:None.Bladder:Normal. The distal segment of the left nephroureteral stent is seen within the urinary bladder.IMPRESSION:No hydronephrosis.I personally reviewed these image(s) along with the resident's/fellow's interpretations, certify that if a procedure was performed I was physically present, and agree with the final report.MD Daily Myoglobin, [id number] 17:30:28 Test Item Value Reference Range Interpretation Comments Myoglobin Lvl-Martin (test 623 See_Comment H Te st Performed code = 2639-3) by:[facility] [place], [place] [address]Imr Dir mark anthony: Amado Dawson.Digna. Ph.D.; CLI A# [id number] [Automated mess age] The system whic h generated this result transmitted ref erence range: <=90 mcg /L. The reference r nick was not used to interpret this result as normal/abnor mal. Lab Interpretation (test Abnormal code = 58458-0) MD D[id number] 15:43:23 Test Item Value Reference Interpretation Comments Range Aldolase-Martin (test 36.8 See_Comment H This res ult may be falsely code = 1761-6) elevated. Hemoglobinconta mination was observed in thi s sample, and hemolysisincrea ses Aldolase results. Interp ret results with caution. T est Performed by:[facility] [place], [place] [address]Ddf Dir mark anthony: Amado Dawson.Digna. Ph.D.; CLIA# [id number] [Automated mess age] The system which ge nerated this result transmit srinath reference range: <7.7 uni t/L. The reference range was not used to interpret th is result as normal/abnormal . Lab Interpretation Abnormal (test code = 04298-1) MD DailyMyoglobin, [id number] 15:30:23 Test Item Value Reference Range Interpretation Comments U Myoglobin-Martin 45 mcg/L Urinary juan globin is highly (test code = unstable unless 2641-9) alkalinizedwith Na2CO3 preservative. E ronnie with alkalinization, myoglobin deterioration i s variable and sample dependen t(approximate averages of 10% at 1 day, 20% at 3 days, and3 0% at 7 days). ----REFERENCE VALUE --Reference harika ueshave not beenestablished forpatients who aregreater than 83years of age. ----ADDITIONAL INFORMATION---- -This test has been modified from the media law faculty member'si nstructions. Its performance characteristics weredetermined by [facility] in a manner con sissurinder hoangir emjustus. This test has not be en cleared orapproved by erica casas U.S. Food and Drug Admini stration. Test Performed by:[place] [address] Director: Missael Nation M.D. Ph.D.; CLI A# [id number] MD DailyUrinalysis w/Microscopic if [id number] 03:34:29 Test Item Value Reference Range Interpretation Comments UA Color (test code = Red Yellow A 7877) UA Appear (test code = Cloudy Clear A 7868) UA Glucose (test code = NEG NEG mg/dL 7881) UA Bili (test code = NEG NEG 7871) UA Ketones (test code = Trace NEG mg/dL A 7884) UA Spec Grav (test code 1.020 1.002-1.035 = 7894) UA Blood (test code = Moderate NEG A 7872) UA pH (test code = 8.0 4.5-8.0 7909) UA Protein (test code = >=500 NEG mg/dL A 7890) UA Urobilinogen (test NEG NEG code = 7903) UA Nitrite (test code = NEG NEG 7888) UA Leuk Est (test code Small NEG A = 7886) UA Comment (test code = See Comment Many WBC clumps 8512) seen in additio n to individual WBCs Lab Interpretation Abnormal (test code = 07377-8) MD DailyUrinalysis with [id number] 03:34:28 Test Item Value Reference Interpretation Comments Range UA WBC (test code = 65 See_Comment H [Automa srinath 7904) message] The system which generated this result transmitted reference range : 0 - 2 /HPF. The reference range was not used to interpret this result as normal/abnormal . UA RBC (test code = >182 See_Comment H [Automa srinath 7891) message] The system which generated this result transmitted reference range : 0 - 2 /HPF. The reference range was not used to interpret this result as normal/abnormal . UA Mucous (test code TRACE TRACE /HPF = 7887) UA Bacteria (test NOT SEEN NOT SEEN /HPF code = 7870) UA Squam Epi (test OCC OCC /HPF code = 7896) UA WBC Clump (test 4+ OCC /HPF A code = 7906) UA Hyal Cast (test 12 See_Comment H [Automat ed code = 7883) message] The system which generated this result transmitted reference range : 0 - 2 /LPF. The reference range was not used to interpret this result as normal/abnormal . UA Yeast (test code 2+ NOT SEEN /HPF A = 7908) IWONA (test code = Some reporting IWNOA) parameters within the Urinalysis test have changed due to the implementation of new instrumentation in the [facility], allowing greater sensitivity of measurement. Urinalysis results reported by the [facility] using existing instrumentation, as well as Urinalysis testing performed manually or by backup methodology at the [facility] will remain relatively unchanged. New reporting parameters and units will now be reported for all campuses. Lab Interpretation Abnormal (test code = 32071-6) MD Alycia Maldonado (In-House)2021-01-26 14:05:07 Test Item Value Reference Range Interpretation Comments Troponin T (test code = 501 ng/L See_Comment A < 19 ng/L 9384) Arizmendi ggest retest at 3 to 6 hours later to rule o ut myocardial infarction >= 1 9 to <=52 ng/L Possible myocar dial injury. Sugges t retest at 3 tuyet rs. - a change of < 20 ng/L, retest at 6 tuyet rs - a change of >= 20 ng/L, suggestive of myocardial infarction > 52 ng/L Suggest nimisha of myocardial infa rction Critical value will be reported when c Charity isf > 52 ng/L and o nly reported for th e first in a series. He molyzed specimens with Hemolysis Index >100 (100 mg/dl or m oderate hemolysis) may cause interferences a nd falsely low res ults. [Automated mess age] The system whic [employer] generated this result transmitted ref erence range: <=18. Th e reference range was not used to int erpret this result as normal/abnormal . Lab Interpretation Abnormal (test code = 03300-3) MD AndersonTMP Interpretation Antibody Screen [id number] 13:57:20 Test Item Value Reference Range Interpretation Comments TMP Auto Neg At the present ABSC Interp time, patient (test code = plasma shows no ____PETRA TOWNSEND MD 2535) evidence of RBC - 298[address]Ibuqu srinath by: alloantibodies. PETRA JUNE MD - [id number] D ate/Time: 01.26.2021 7:57 AM EDGE BANDING MACHINE OFFBEARER Transcribed Del e/Time: 01.26.2021 7:57 AM CSTElectronical ly Signed By: PETRA MCMAHON MD - [id number] on 7:57 AM C MD DailyConfirm [id number] 08:22:37 Test Item Value Reference Range Interpretation Comments ABORh Confirm. (test code = 882-1) A POS MD DailyAntibody [id number] 08:22:35 Test Item Value Reference Range Interpretation Comments ABSC. (test code = 890-4) Negative ABSC MD DailyOtgacypsHTEOj9038-21-88 08:22:34 Test Item Value Reference Range Interpretation Comments ABORh. (test code = 882-1) A POS MD DailyClot Expiration [id number] 08:22:31 Test Item Value Reference Range Interpretation Comments T & S Expiration (test code = 01/29/2021 5318) MD DailyBNP (Sendout)2021-01-26 02:55:15 Test Item Value Reference Range Interpretation Comments BNP (test code = 12.0 pg/mL 0-100 Elevated re sults are in 4997) line with incre asing severity of con gestive heart failure. Minor elevations betw een 100 and 300 may be seen with Myocardial Isch emia, Sodium retainin g drugs, and compensated /treated heart failure. performed at: [facility], [facility], [address], [place], [address]. MD Alycia Todd (Sendout)2021-01-26 02:55:14 Test Item Value Reference Range Interpretation Comments Troponin-I (test 0.04 ng/mL 0-0.4 Performing Lab:[facility], code = 7659) [facility] [address] [place], [place] [address] MD DailyEchocardiogram 2D Complete with [id number] 22:56:55Interface, Radiology Results In 01/25/2021 4:58 PM CSTEchocardiographic ReportInterpretation SummaryA complete two-dimensional transthoracic echocardiogram was performed (2D, M-mode, Spectral and color Doppler). The study was technically difficult. Micro-Bubbles injection performed because of poor e ndocardial resolution.Normal left ventricular size and systolic function.Using an ultrasound enhancing agent and the Biplane Method of Disks, the LVEF measures 66%The right ventricle is normal in size and function.Unable to estimate RVSP due to lack of TR visualization.There is no pericardial effusion.Left Ventricle:Normal left ventricular size and systolic function. There is normal left ventricular wall thickness. Using an ultrasound enhancing agent and the Biplane Method of Disks, the LVEF measures 66%.I WMSI = 1.00 % Normal = 100X - Cannot 1 - Normal 2 - 3 - Akinetic 4- DyskineticInterpret Hypokinetic5 - Xkyghrisha1J imaginD volumes were not performed in this study.Cardiac Mechanics/Speckle Tracking Imaging:Speckle tracking imaging was not performed in this study. ([employer] Study).Diastology:LV relaxation appears normal.Right Ventricle:The right ventr icle is normal in size and function. Normal RV systolic function using TAPSE criteria.Atria:Atria are normal in size.Mitral Valve:The mitral valve is grossly normal.Tricuspid Valve:The tricuspid valve is not well visualized, but is grossly normal. Unable to estimate RVSP due to lack of TR visualization.Aortic Valve:The aortic valve opens well.Pulmonic Valve:The pulmonic valve is not well visualized.Great Vessels:The aortic root is normal size.Pericardium/Pleural:There is no pericardial effusion. An echo lucent space is noted consistent with prominent pericardial fat pad.Preliminary ReviewerPreliminary Interpretation: Laury Quan MD.MMode/2D Measurements IVSd: 0.79 cm LVIDd: 4.7 cm LVIDs: 3.2 cm LVPWd: 0.82 cmFS: 32.3 % Ao root diam: 3.0 cm Ao root area: 7.1 cm2 LA dimension: 4.4 cmLVOT diam: 2.0 cm EDV(MOD-A4C): 74.4 ml ESV(MOD-A4C): 24.8 mlLVOT area: 3.2 cm2 EF(MOD-A4C): 66.7 %EDV(MOD-A2C): 66.0 mlESV(MOD-A2C): 23.8 ml EDV(MOD-bp): 70.9 mlEF(MOD-A2C):63.9 % ESV(MOD-bp): 24.5 ml EF(MOD-bp): 65.5 %LAV(MOD-A2C): 75.5 ml EDV (MOD-bp) Index: 32.3 ml/m2LAV(MOD-A4C): 48.4 mlLAV(MOD-bp): 61.6 mlLAV(MOD-bp) Indexed: 28.1 ml/m2ESV (MOD-bp) Index:11.2 ml/m2 TAPSE (>1.6): 3.2 cmDoppler Measurements MV E max pati: 93.0 cm/sec MV V2 max: 118.8 cm/secMV A max pati: 68.9 cm/sec MV max P.6 mmHgMV E/A: 1.3 MV V2 mean: 68.9 cm/sec MV mean P.3 mmHg MV V2 VTI: 16.4 cm MVA(VTI): 3.4 cm2MV P1/2t max pati: 93.0 cm/sec Ao V2 max: 122.3 cm/secMV P1/2t: 32.2 msec Ao max P.0 mmHgMVA(P1/2t): 6.8 cm2 Ao V2 mean: 79.9 cm/sec Ao mean P.8 mmHgMV dec slope: 846.2 cm/sec2 Ao V2 VTI: 17.0 cm NEHAL(I,D): 3.3 cm2 NEHAL(V,D): 2.9 cm2LV V1 max P.9 mmHg SV( LVOT): 55.9 mlLV V1 mean P.6 mmHgLV V1 max: 110.9 cm/secLV V1 mean: 77.1 cm/secLV V1 VTI: 17.5 cmAVA Index (I,D): 1.5 NEHAL Index (V,D): 1.3Dimensionless Index: 0.91 E/e' (avg): 7.6E/e' (lat): 8.1 E/e' (sept): 7.1MD AndersonXR Chest 1 View Post [id number] 22:54:38Right central venous catheter terminates near the cavoatrial junction. No pneumothorax.Opacities in the lung bases may represent atelectasis, aspiration or pneumonia. Interface, Radiology Results In - 01/25/2021 4:56 PM CSTFULL RESULT:Examination: XR CHEST 1 VW POST IMPLANT, 01/25/2021 4:48 PMClinica l History: Malignant neoplasm of left ureterIndication: Check Central Line placementComparison: NoneTechnique: Single portable anteroposterior radiograph of the chest.Findings:Right central venous catheter terminates at the cavoatrial junction. No pneumothorax.Bibasilar opacities, right greater than left. Heart and mediastinal contours are normal.IMPRESSION:Right central venous catheter terminates near the cavoatrial junction. No pneumothorax.Opacities in the lung bases may represent atelectasis, aspiration or pneumonia.MD Rdz Vascular Access Device: Non-Tunneled: [id number] 21:48:42SuKAMRYN Glaser 01/25/2021 4:27 PMProcedure: central venous catheter placement Date/Time: 01/25/2021 3:48 PM Provider Information:Performed by: Margie Lemon, PAAuthorized by: DELGADO Ruiz Pumper Gauger Apprentice present: no Patient Diagnosis:Pre-operative diagnosis: Urothelial carcinoma, possible immune mediated myocarditisPost-operative diagnosis: unchanged Indications:Indications: apheresis Pre-Procedure Note:Patient examined pre-procedure: yesChart reviewed pre-procedure, including labs,images, history and physical exam: yesMedical mixing picker tender: mixing picker tender not needed Pre-procedure patient condition: alert Anesthesia:Anesthesia: local infiltrationLocal anesthetic: lidocaine 1% without epinephrineAnesthetic total (ml): 3 Sedation:Patient sedated?: no Central Venous Catheter Placement:Preparation: insertion site prepped and cleaned with aseptic technique, patient ready for procedure and equipment and IV tubing preparedSkin prep agent dried: skin prep agent completely dried prior to procedureSterile barriers: maximum sterile barriers were used: cap, mask, sterile gown, sterile gloves, and large sterile sheetHand hygiene: hand hygiene performed prior to central venous catheter insertionLocation: right internal jugularPatient position: flat (flat for needle insertion and micro wire, HOB elevated to 30- 45degrees for remainder of procedure due to patient shortness of breath)Catheter type: triple lumenInstruments used: central venous catheter trayPre-procedure: landmarks identifiedUltrasound guidance: yesSterile ultrasound techniques: sterile gel and probe cover used in ultrasound-guided central venous catheter insertionNeedle introduced into anesthetized area: yesSterile Seldinger t echnique used: Seldinger technique usedMicroIntroducer with sheath inserted: yesDrip test performed:yesDilator inserted gently over guidewire: yesDilator with peel away sheath inserted: noCatheter inserted: yesIV tubing attached to catheter: yesReverse Trendelenburg position discontinued: yes Each lumen evacuated of air and flushed with sterile saline: yesCatheter size: 12 FrNumber of attempts: 1Successful placement: yesEstimated blood loss: none Post-procedure:Post-procedure: line sutured and dressing appliedAssessment: blood return through all ports, free fluid flow, placement verified by x-ray and no pneumothorax on x-rayPatient condition: patient tolerated the procedure well with no immediatecomplications, patient does not report adverse symptoms, patient remained hemodynamically stable throughout the procedure and patient is warm and well perfusedResponsiveness: awake and alertPatient disposition: remain in inpatient bed Comments:Ultrasound demonstrated compressibility of the right internal jugular vein. With ultrasound guidance, we then accessed the selected vessel using the micropuncture needle. We kept a permanent record of the ultrasound-guided vessel puncture image on the ultrasound with todays date and time.Post procedure chest x ray shows right internal jugular vein central venous catheter in good position for infusion with tip at the cavoatrial junction.MD DailyCytokine Panel [id number] 21:42:12 Test Item Value Reference Range Interpretation Comments INF gamma (test code = 208356) <LLOQ 0-5 IL-6 (test code = 561758) 6 pg/mL 0-5 H TNF alpha (test code = 130975) 16 pg/mL 0-22 Lab Interpretation (test code = Abnormal 98391-1) MD DailyResearch Protocol [id number] 19:57:51 Test Item Value Reference Range Interpretation Comments Research Prot (test 146457 code = 7189) IWONA (test code = IWONA) 5 tube collection; research coordinator Rhina DailyPartial Thromboplastin [id number] 17:21:43 Test Item Value Reference Range Interpretation Comments PTT (test code = 36.0 See_Comment [Automated message] The 6773) system which ge nerated this result transmit srinath reference range : 24.2 - 36.0 second(s). The reference range was not used to interpr et this result as opal l/abnormal. MD DailyProthrombin Time with [id number] 17:21:42 Test Item Value Reference Range Interpretation Comments PT (test code = 6746) 16.5 See_Comment H no matthew t [Automated message] The sy stem which generated this result transmit srinath reference range : 12.0 - 14.3 second(s ). The reference range was not used to int erpret this result as normal/abnormal . INR (test code = 5973) 1.37 0.90-1.10 H Lab Interpretation (test Abnormal code = 59657-3) MD [id number] 01:24:02 Test Item Value Reference Range Interpretation Comments TSH (test code = 3.13 See_Comment [Automated message] The 7578) system which ge nerated this result transmit srinath reference range : 0.27 - 4.20 mcunit/mL. The reference range was not used to interpr et this result as opal l/abnormal. MD DailyFrisael [id number] 01:24:01 Test Item Value Reference Range Interpretation Comments T4 Free (test code = 7502) 1.35 ng/dL 0.93-1.7 MD [id number] 01:23:40 Test Item Value Reference Range Interpretation Comments T3 Total (test code = 7491) 86 ng/dL 80-200 MD DailyCortisol, [id number] 01:23:33 Test Item Value Reference Range Interpretation Comments Cortisol (test code = 13.90 See_Comment Serum Cortisol Reference 5357) Ranges: Morning (6-10am) (4.82 - 19.5)Afternoon (4-8pm) (2.47 - 11.9) [Automated message] The sy stem which generated this result transmitted ref erence range: 4.80 - 1 9.50 mcg/dL. The ref erence range was not u sed to interpret this result as normal/abnormal . MD DailyMisc Reference Lab [id number] 01:06:13 Test Item Value Reference Range Interpretation Comments Ref Lab Test Request Ordered Status (test code = 9012) Requested Ref Lab Test anti-titin Ab, Name (test code = 9006) anti-LRP4 Ab, anti-HMGCR Ab Requesting Physician Lacy Lynn MD (test code = 9007) Person to Contact (test Lacy Lynn MD code = 9009) Contact Phone Number [phone] (test code = 9008) Collection Requirements routine collection (test code = 9010) MD Keating C Virus [id number] 01:05:22 Test Item Value Reference Range Interpretation Comments HCVAb Received (test See Note HCVAb w as sent to a code = 64610) reference lab for testing. Expec t results on Hepa titis C Virus Ab Screen w/Reflex HCV PC R within 96 hours. MD Keating B Surface [id number] 01:05:20 Test Item Value Reference Range Interpretation Comments HBsAg Received (test See Note HBsAg w as sent to a code = 79530) reference lab for testing. Expec t results on Hepa titis B Surface Antigen w/ Confirm within 96 hours. MD Keating B Total Ig Core Ab (SCREENING) (anti-HBc total Ig; HBcAb total Ig)2021-01-25 01:05:18 Test Item Value Reference Range Interpretation Comments HBcAb Received (test See Note HBcAb w as sent to a code = 19732) reference lab for testing. Expec t results on Hepa titis B Core Total Ab w ithin 96 hours. MD DailyRespiratory Viral Panel + COVID-19, Nasopharyngeal [id number] 22:55:14 Test Item Value Reference Range Interpretation Comments Adenovirus (test code = Not Detected Not Detected 9271) Coronavirus 229E (test Not Detected Not Detected code = 5311) Coronavirus HKU1 (test Not Detected Not Detected code = 5350) Coronavirus NL63 (test Not Detected Not Detected code = 5351) Coronavirus OC43 (test Not Detected Not Detected code = 5352) COVID19 (SARS-CoV-2) Not Detected Not Detected (test code = 02508-1) Human Metapneumovirus Not Detected Not Detected (test code = 6401) Human Not Detected Not Detected Rhinovirus/Enterovirus (test code = 7212) Influenza A (test code Not Detected Not Detected = 5618) Influenza A H1 (test Not Detected Not Detected code = 5619) Influenza A H1 2008 Not Detected Not Detected (test code = 5620) Influenza A H3 (test Not Detected Not Detected code = 5621) Influenza B (test code Not Detected Not Detected = 5622) Parainfluenza 1 (test Not Detected Not Detected code = 6779) Parainfluenza 2 (test Not Detected Not Detected code = 6780) Parainfluenza 3 (test Not Detected Not Detected code = 6781) Parainfluenza 4 (test Not Detected Not Detected code = 6782) Respiratory Syncytial Not Detected Not Detected Virus (test code = 7157) Bordetella Not Detected Not Detected Parapertussis (test code = 54562) Bordetella pertussis Not Detected Not Detected (test code = 4854) Chlamydiophila Not Detected Not Detected pneumoniae (test code = 5139) Mycoplasma pneumoniae Not Detected Not Detected (test code = 6203) IWONA (test code = IWONA) The BioFire RP2.1 is a real-time, nested multiplexed polymerase chain reaction test designed to simultaneously identify nucleic acids from 22 different viruses and bacteria associated with respiratory tract infection, including SARS-CoV-2, from a single nasopharyngeal swab (FORM TAMPER OPERATOR) specimen. Specifically, the SARS-CoV-2 primers contained in the BioFire RP2.1 are designed to detect RNA from the SARS-CoV-2 in nasopharyngeal swabs in transport media from patients who are suspected of COVID-19 by their healthcare provider. Results must be interpreted within the context of all relevant clinical and laboratory findings and should not form the sole basis for a diagnosis or treatment decision. This assay has been approved by the FDA for use only under Emergency Use Authorization (EUA) in laboratories that have been CLIA-certified to perform moderate-complexity and high-complexity tests. The [facility] at [facility], CLIA Accreditation #[id number] and CAP Accreditation #[id number], verified the performance characteristics of this assay. [facility] performs the assay using the [employer] System. Internal controls are used to monitor all stages of the test process. MD [id number] 21:57:48 Test Item Value Reference Range Interpretation Comments CK MB (test code = 32.4 ng/mL See_Comment H [Automat ed message] 2069) The system FriendFeed generated this result transmit srinath reference range : <=10.4. The reference range was not used to interpret this result as normal/abnormal . Lab Interpretation Abnormal (test code = 68085-2) KillianCreatine [id number] 21:57:45 Test Item Value Reference Range Interpretation Comments CK (test code = 5206) 174 U/L 39-308 [facility] Chest Abdomen Pelvis with and without [id number] 20:35:09 1. More prominent left lower lobe pulmonary nodule, indeterminant.2. Stable long segment soft tissuethickening of distal left ureter with periureteral fatty stranding consistent with known urothelial cancer.3. Enlarged left common iliac metastatic lymphadenopathy inseparable from left common iliac artery. Interface, Radiology Results In - 01/24/2021 2:37 PM CSTFULL RESULT:Examination: CT CHEST ABDOMEN PELVIS W WO CONTRAST, 01/24/2021 12:44 PMClinical History: Malignant neoplasm of left ureterIndication: Active immunotherapy, metastatic urothelial cancer evaluate for disease progressionComparison: CT chest on 10/31/[address] abdomen and pelvis on 10/27/2020Technique: CT of the abdomen was performed without intravenous contrast followed by CT of the chest, abdomen, and pelvis with intravenous contrast.Findings: Chest:Heart: Heart normal in size. No pericardial effusion. Coronary artery calcifications.Lymph nodes: No supraclavicular, mediastinal, hilar or axillary lymphadenopathy.Lungs and pleura : More prominent 6 mm left lower lobe subpleural nodule (6, 72), indeterminant. Bibasilar atelectasis. In right middle lobe calcified granuloma. No consolidation, pleural effusion or pneumothorax.Abdomen/pelvis:Liver, gallbladder, bile ducts: Stable hepatic cysts and too small to characterize hepatic lesions. No suspicious hepatic lesion. No biliary ductal dilatation. Gallbladder is unremarkable.Pancreas: No pancreatic lesion. No pancreatic duct dilatation.Spleen:Normal in size. No splenic lesion.Adrenals:Unremarkable. No nodule.Kidneys: Stable long segment soft tissue thickening of distal left ureter with periureteral fatty stranding (series 5, image 250-260) consistent with known urothelial cancer. Post left nephroureteral stent placement and resolution of hydronephrosis. No suspicious renal mass. Stable 2.9 cm right renal hyperdense hemorrhagic/proteinaceous cyst (5, image 196) and stable bilateral simple renal cysts.Bowel and Mesentery:No bowel wall thickening. No bowel obstruction. No mesenteric mass.Lymph Nodes: Enlarged left common iliac lymph node inseparable from the common iliac artery (5, image 239) measures 2.8 x 2.5 cm compared to 1.6 x 1.5 cm previously. No retroperitoneal, mesenteric or inguinal lymphadenopathy.Vessels:Patent.Bladder:No bladder wall thickening. Musculoskeletal/Soft tissues:The bones are demineralized limiting the evaluation. Multilevel degenerative changes of the lumbar spine.Stable 1.7 x 1.2 cm hypodensity along the left iliopsoas, along the acetabulum (5,she 289) may be an iliopsoas bursa.IMPRESSION:1. More prominent left lower lobe pulmonary nodule, indeterminant.2. Stable long segment soft tissue thickening of distal left ureter with periureteral fatty stranding consistent with known urothelial cancer.3. Enlarged left common iliac metastatic lymphadenopathy inseparable from left common iliac artery.MD DailyLipase [id number] 19:15:31 Test Item Value Reference Range Interpretation Comments Lipase Lvl (test code = 62 U/L 13-60 H Test ing Performed at 6165) [facility] Lab Ambulat ory Care Bldg, [address], [address], [place] [address] Lab Interpretation (test Abnormal code = 61888-6) MD DailyAmylase [id number] 19:15:30 Test Item Value Reference Range Interpretation Comments Amylase Lvl (test code 43 U/L 28-100 Testi ng Performed at [facility] = 4806) Lab Utility Division Project Manager Bldg, [address], [place] [address] [facility] [id number] 16:54:37 Test Item Value Reference Range Interpretation Comments POC Crea (test code 1.4 mg/dL 0.6-1.3 H Medicati ons, especially = 89679-9) hydroxyurea or supplements, arizmendi ch as ascorbate, can interfere with test resul ts causing a falsely and significantlyhi gher result than exp ected. If a problem is arizmendi spected with a patient' s result, a sample should be sent to the laborato for confirmatory te sting. Method descript ion: The i-STAT is an an alyzer used for in vit ro quantification of various analytes in who le blood. The device uses a single disposable cart ridge which contains microfabricated sensors, a calibration s olution, fluidics system , and a waste chamber. Each test cartridge conta ins chemically sens itive biosensors on a silicon chip that are c onfigured to perform spec ific tests. The microfabricated sensors measure analyte concentration b y an electrochemical assay. POC eGFR-AA (test 53 See_Comment L Normal eGF R >= 60 code = 94601-4) mL/min/1.73 m2 The eGFR is calculated u sing the CKD-EPI equatio n. The eGFR declines w ith age. eGFR <60 mL/min /1.73 m2 is considered a s "decreased" Thi s equation should only be used for patients 18 and older. According to e National [employer] on's Kidney Disease Outcome Quality Initiat nimisha (KDOQI) classif ication and 2012 Kidney Disease Improving Globa l Outcomes (KDIGO) Clinica l Practice Guideline, the stage of CKD should be c ategorized based on estima srinath GFR. Stage Descripti on GFR mL/min/1.73 m21 Kidney damage with nor mal or high GFR >= 902 Kidney damage with mil d decrease in GFR 60-89 3a Mild to moderate decrea se in GFR 45-593b Mode rate to severe decrease in GFR 30-444 Severe decrease in GFR 15-29 5 Kidney failure <15 (or dialysis) [Aut omated message] The sy stem which generated this result transmitted ref erence range: >=60 mL/ min/1.73 m2. The referen ce range was not used to interpret this result as normal/abnormal . POC eGFR-RODDY (test 45 See_Comment L Normal eG FR >= 60 code = 98563-4) mL/min/1.73 m2 The eGFR is calculated u sing the CKD-EPI equatio n. The eGFR declines w ith age. eGFR <60 mL/min /1.73 m2 is considered a s "decreased" Thi s equation should only be used for patients 18 and older. According to e National [employer] on's Kidney Disease Outcome Quality Initiat nimisha (KDOQI) classif ication and 2012 Kidney Disease Improving Globa l Outcomes (KDIGO) Clinica l Practice Guideline, the stage of CKD should be c ategorized based on estima srinath GFR. Stage Descripti on GFR mL/min/1.73 m21 Kidney damage with nor mal or high GFR >= 902 Kidney damage with mil d decrease in GFR 60-89 3a Mild to moderate decrea se in GFR 45-593b Mode rate to severe decrease in GFR 30-444 Severe decrease in GFR 15-29 5 Kidney failure <15 (or dialysis) [Aut omated message] The sy stem which generated this result transmitted ref erence range: >=60 mL/ min/1.73 m2. The referen ce range was not used to interpret this result as normal/abnormal . POC Clean Dev (test Yes code = 6672) Lab Interpretation Abnormal (test code = 48505-2) MD Jones MSI by PCR with interpretation and [id number] 22:14:00 Test Item Value Reference Range Interpretation Comments Archived Material Previously diagnosed (test code = 9986) tissues from [place] [address] were selected for molecular analysis. Results will be reported separately. MD DailyOH NTRK1 Fusion Analysis with Interpretation and [id number] 22:14:00 Test Item Value Reference Range Interpretation Comments Archived Material Previously diagnosed (test code = 9986) tissues from [id number] were selected for molecular analysis. Results will be reported separately. MD DailyOH FGFR3 Fusion Analysis with Interpretation and [id number] 22:14:00 Test Item Value Reference Range Interpretation Comments Archived Material Previously diagnosed (test code = 9986) tissues from [id number] were selected for molecular analysis. Results will be reported separately. MD DailyOH FGFR1 Mutation Interpretation and [id number] 22:13:00 Test Item Value Reference Range Interpretation Comments Archived Material Previously diagnosed (test code = 9986) tissues from [id number] were selected for molecular analysis. Results will be reported separately. [facility] PIK3CA Mutation Analysis Interpretation and [id number] 22:13:00 Test Item Value Reference Range Interpretation Comments Archived Material Previously diagnosed (test code = 9986) tissues from [id number] were selected for molecular analysis. Results will be reported separately. [facility] NTRK2 Fusion Analysis with Interpretation and [id number] 22:13:00 Test Item Value Reference Range Interpretation Comments Archived Material Previously diagnosed (test code = 9986) tissues from [id number] were selected for molecular analysis. Results will be reported separately. [facility] NTRK3 Fusion Analysis with Interpretation and [id number] 22:13:00 Test Item Value Reference Range Interpretation Comments Archived Material Previously diagnosed (test code = 9986) tissues from [id number] were selected for molecular analysis. Results will be reported separately. [facility] FGFR1 Fusion Analysis with Interpretation and [id number] 22:13:00 Test Item Value Reference Range Interpretation Comments Archived Material Previously diagnosed (test code = 9986) tissues from [id number] were selected for molecular analysis. Results will be reported separately. [facility] FGFR2 Fusion Analysis with Interpretation and [id number] 22:13:00 Test Item Value Reference Range Interpretation Comments Archived Material Previously diagnosed (test code = 9986) tissues from [id number] were selected for molecular analysis. Results will be reported separately. [facility] FGFR3 Mutation Interpretation and [id number] 22:12:00 Test Item Value Reference Range Interpretation Comments Archived Material Previously diagnosed (test code = 9986) tissues from [place] [address] were selected for molecular analysis. Results will be reported separately. [facility] [id number] 22:42:00 Test Item Value Reference Range Interpretation Comments Addendum 1 (test code = v2zcxZBwCZKhqBX4YyC 37) xXNAgv5xds7XsqLPtgX JwFHbppOEwjvRqwh78c GT9tB74PR1yNAGpDfP0 IUUofxB3Xod6ILIzISH lpGQuQ690c2rzg8fbnf SxkJV6zYphJWTcDTMmL WluXGZzMjAgVGhpcyBt q7MlKemvGPFhWPNcyvW gaXMgYmVpbmcgaXNzdW OlFQLzOMYsf9DaPXAfB AOsjFYyy78ceSWtgkUl ql3xiWlutp5gVBJ6oYG zLlxwYXJccGFyIEltbX Wyv0adf6ThQ0ogdZrrQ Eyhy2IpqC1hNOkllwIr eUNsIb6nvCBoSDAvwlH 0aHSxRI9IQZ3ti08phU JmPRHrbQPpqwXywua7d XOwKJ8UUFQhKP0GPHOb WQ7LEGZzTE6qKCKRYtC uIEludGFjdCBudWNsZW WpNHL1jHQav5Ukg35vh ROkVLLlLIWwrXGay5Gl ISbwQDTgvEZhv4AhuOe mv7NduSLumYZcvsAajJ 5eP4MsZ3okf92zTPEov BchERVqCMQsyqZfz25f vuIhgMmvq0YqXhVdQYl daqJ7qVJ2YKDosuKjFT FzIGludGVybmFsIGNvb wXyr7dtOiCMsQZrCRDq cmUsIHRoZSBsaWtlbGl bw03mGD7yEXUmWmCedX v6OUEOAlHyuHcceWR9C 8dnzmUbRLkzR2qnH1zf wBR3NFtyWS5wLY4mW6H ug6E4UAnrjTWqMLftq2 ZiXhjxoLB2EKiHT6aaP UkwuO1fyXjdDFG7dG4z IBgcQRqnzo8vqCFiFWZ nmwkhONGdRRA4PUXhlO l5ZwHszFqpUPFqLDE3K wB5BEo4yDN6XEFgpJgm QrNhDWY3OCWeAMu1cBL oVNAykTh0RpRkQQL5Sf B4VFj5uNysMARbcDx8P LEkKPS7NOT3DFp3zTgg UkIlQW7asB5hpIlhtT0 jaGVtaWNhbCBzdGFpbm bdOkAsdnXrFGGwr3RwB BFmfP3uk2WxLWhrUxTz jgMvWONuwUDyp5OftSH 0aXZlIHBhcmFmZmluLW LzHrQoLWJlBIVfD3Kmr 24uXHBhclxwYXJkXGxp Dpn7MWzrvqU2FZe5sDP 6SQg6gDrgOFk3mVA5WJ LhoDdeWKJdMNS4Idk7L Or3iYE0HMCvmYp0VmHd IAD7CDL1GNz0wGG0XuB yoDl8MWyxTSY6WaZnJF f8kHx2GaNyxNn2OyOfO SP7PFA0TPduCRFjPqan B9n2CWHcVqTDXFdpHRI uhEVhWRebyIA3OMlboQ 4rMCglpZjlIAMvzZa3J nCrjNtfHRHsYSY8TxJ4 BUh7zZK9CLDblEquLzF xMKN5XJDlAWt2fTFeRD DysJx1ImWtBWJ4VbP8I Lf2pAtdVDYntDm0XXRz EWR7ISJ7HJz5fYwzYfJ cYiBIRVIyXHBhclxiMF rcLQJrxVmwq4E5ZVRrl 07lYtF8GvSxSSZnexDa bmEgUEFUSFdBWSlccGF bOXIeo8v2dQQgLKEks0 YqYHKiLXK8mQ8wDFT8q YSzRECnllA8nHYnxgFf fYkckFJeDQ0kftPaLIH eqGHzjtckVcP6ySL1XZ lzIGNvbXBsZXRlLCBpb eNmpnUjNMNcpvWuf7h2 pVrdYQ6uBHCtb6CylNP cd3JhT2OjuFUrFGKox0 ExOLKkBQ9rQH4jN5F1e VSeBMPdp1WiEDMnKWEr RMQtbyZeTNHlQWCco7T oIVktlQnwaf2kf1VmEP T9BXWsEOWqhIQnormvQ qjpu0SrjEOaSdAkoaEo d2JsdU4gggwkzDxgrNG pcyBpbmNvbXBsZXRlIG DoQNJvejUaTCsfdZ3zU GMnyUxubLWrL7BcbEti gGYgZN0aYMchbJjfogV zHQLrGYTbEK8zc4JoCS V0WIfnoZ8cMKKiOM3vA AD7uM5lCIBnfPyyWSwS Z24oHOXkLOGrurRpbzM oeIBiRMEhDQ8mdCNvWH 6gCNQ2FPfglP8nOOXrM XQgaXMgZmFpbnQvYmFy ZFq0EGZeeaCfjKDhPuu bKEHiMIQ4nOZbnB9hTl CbYBShIeM0sY5mhpMtT UnlwbBcN1RsltZoDYzp VeXjBGS6mFRxC3YtAR5 fIPrxOAH7YRCvhM4jtY KoB1TcIMStNSZjGRKht 2VtDTmexGjhI24sqQxo sRPmcTTnJjAzowYma8R pqS9txpdmwJjekGEnwm M4HZVkS23mTMDiYOMmU LFqBMF7nGXvmJ3cFqEt QYVhPqL8xM8pocBwLAi azhVxojBgq26ypCW1XD MtsqYkG4hbN6XrZtVxA H40bFDlKG5goNHzRY0m HBG0WAwuxS1mDSFjFMM dkVDfjL65XT2gSNLvvx Kkd6x0mEnvOIgfa4Acx GhhbiBvciBlcXVhbCB0 nzThHHSnl8YlmTGex6S aY0LsiPHtPYUjc0NsSW UeUM3piZTbEPDeHcZhT Y8bZZHDo4lsRoJpwARe lD7qZcXPdGzsXU7xZ03 vYER0YoMcZFKqLpCuKR IwMThccGFyXHBhcmRcb Lp6LkNzePhhYIc7STJ6 IJfyOTC2JTagYPv1cCU eCaKbuWwxVNnwUKL3Wj KsXXf2sXRfQkKbrAw7A ZBhREY3TDc0FHk8gAC6 JILeaIx1DzDwDBG2Wab kXZg8oBp9AZMejBu6Py HxICA6JTNbGUYqdWCuG BMITsSWYUU9gUXvMmh5 ELAeJK0zbPVmypVwoAQ yBUGnrtWrxTa3DjNxoW eaYZk6QKI3HTqdBNB9E Wm4NGw8uSVmIrVxePzs BUbaRMJ0KkZvSBs1rUL eCrDwgDu0BUXuZEG3SG e3IOr7gQH0YEBwlBq8C eMtMCR0MsriMSr0sAp2 EHVvdEl3MlGlGQL7SRI rGNOvFDSYNyHXF16cLC pcdGFiIDMrXHBhclxwY NZcPGxnNgh2MNwsixD7 XBw9uCH1CAk1lSmbUHx 1vWX5WCWwiIwtYNUqPL F4Tnb7POq2lLI7AUDss Br3UxMtSOQ8OAT2UZf1 wOP1GpEucPe2SPsmIIW 4ApToVIt5gCn3KuMsuV i8QcXcGUT0SQA7QCcfQ QIym9Muo8IcMBUmexna FQFuNDsfFYw6XYvdsqY 4Jxo0xJL4AJh5kVroKG z7kKY3MBKrsWqiPXHnC LK7Uhc9AMo4nJV5XAUa oQs3DoPpQMO0WPU4ZUn 0cYI3OeKcuFb4VAreKQ U1LzOpMFr5tKf2WrKci Dm4IeOlHDR8XZO5AIkt MFxpIFNwZWNpbWVucyB 1d3OyMAMuteUxKUGssp 2lcagfFyNkqm3mlc4ms GsaPT4hvLYpBAnjuSk5 ZSBtYXJrZXJzIGFyZSB ihIpiEVPmkaBth5DqWJ ohjkEou8YiWWTnoNQzx 9JuJqEua9IzaqNvjpYv O1ZoLPKmeEe4KDddf6F vpGbswtD1VKRru9Mknb buMfA6OEXlgw5xiIcfQ SDvrWQ8oS7fXEB1U9Sp FUDkYSdysV99qkQsp50 fmL1lqYPktDCsTS6pEN dlZWtlbmRzLlxwYXIgS WYgdGhlIHNwZWNpbWVu IGhhcyBiZWVuIGZpeGV oRCGbpfKrh59pKXRajZ vgsbL9QjPud3QpbxrrU UEmDNrqxLh8FFSQEXCg SgAefR81br1rlFB0g8Y vNE9vK5ZeLFkCGRQaYH Aho2SzqQXqQWkjmWgzr 3JldGljYWxseSByZXBy ZXNlbnQgYSBmYWxzZSB iRSbozYi8COrdODk6fR 55P7kwa0H5IEhnziVcJ CRtGIVhu3tdRVZrMACn s3TzM1lpSW0yRHWfilI pDDVldMlpBORfl9DmTT DzvD8cYdVuogCqBAswS WtzIHdpdGhvdXQgYWZm YIF7eB8nZNvWWmElyFB bgtmyAoFtFLP0yAUpRc BUaGVyZWZvcmUsIGEgb mVnYXRpdmUgcmVzdWx0 EZGvp4XmGIBjSLK7CNR pZmllZCBieSBhZGRpdG tegqUcZZOew3KmPB9pA JSbxITtnvE2jUHfDILd bXBsZXMgaWYgYXBwcm9 wcmlhdGUuIFJlZmVyZW 5jZSBBcmJlciBldCBhb C0gIVWqsC1tMN0hwF1q dGkjrE7vvXEvSeGLs7s iMQ1gxSInPUW3SkLbPt twEsdiILF6Vy8siKQkQ LsxOTXeHOLnxDEtbD8w jgG6NMMfwn37IKofqBQ aBCaofXNmet2zCODlYU TuMQJfPDMzXJ7yWGUwg 47rGZLdVO5grzEvyFKt L9CgXFAgsSP1kT6eYXZ qkJHuBG7puUBuSPQpi1 PaZFMbztX0iTGjTZMsb 02nRI41tO3qYRXpnNai zU0ixFOeIXGqcsJpDUQ xlxFIbFGuPWCpd8GurB JalWM2ZNOdn6OkFvNwd eK6LKcrFOT3YPUje89y ZGVjYWxjaWZpZWQgdGl in3Avri8yXUEyr6YzoP Bhe4fdzMduYGGlCWlst GVycHJldGVkIHdpdGgg R6F0kZbuplWxbPVjfeF 4aWWdoBeoHCvdpM6xKC BvZiBmYWxzZSBuZWdhd To9fPW9JE3qRNKaD3Cd K2xgiZMwASNaJDGlqOS zzq6wbUHvVUFfxyMwjU CspRBjTSBehlMWzW09w g4ybON8f5FrZY0mV7Zb ZSL3EBnnJAJcfrGWGX9 MIEGjLzJWTrqsa0ohk0 InscAdIRLzGQJaDS4wF PRuXWW4uS5rNLXihHkw VWBiTUWhILsmlREpu5Z zBGS0pKQxUpIKFHProK wtlyCosAwwm02aFEL4k G1ilhLwa0KgE2yxzSTv KWo1pPOff2S1fCFxQNA vVCAmVCIhi9MtDRptow XczW82AEgniZNjf6VuK ED4wXHsvDauWWEtY95l WpscDMLhhO1ulRJamdN md0VmxrCqcGHcQGZgns 51nR3dcTXhePOrSznbT XJccGFyIEluIGFkZGl0 hI8qIQW1dDCdhJTyd8Z iN6XodJPsIMHeWAAgp8 c2tZBbWIVpxuQOEISUQ cTczrIaJWDTJF4uwLSs LPOuruAOQc9DC6qxSJR 9 Diagnosis (test code = 34) w4oknFQwZJCsyHV1GzF hSRJar6eqa3YfrJEzrA UjPTrtqWVwpiMonj83c IU1dU34DE4cYKLeBjN2 GBQsbzM5Ilc7BJUcURW ftMScG672j8pit5vicx NmjVT9dUdqHMVtPKIeS WluXGZzMjAgQTogUmV0 me6iSMSuvK2uIFAqUMG tMPG7TthbGHPdsAn1Hh MobTjhNvArQX0LXAZNT SYXSRXoS2VJU1qUY68P UAOII18CIBNYGA6VYYu JVEggVVJPVEhFTElBTC BQUklNQVJZLlxwYXJcc VIyZJvhMTxfyF6vAU8s Z94zISKbmVUfUAFrtg5 = Gross Description (test r6rtfVYgYYQdgXLPCLT code = [id number]) wMFxhbnNpXHNwbHRwZ3 LnudpuDKjcAP4gHI7vl DetsGWsyQTgHE6FKJWw ZmYxXHBhcGVydzEyMjQ wNXWfdWMglAJ1UDLrEC 1hcmdsMTgwMFxtYXJnc qG1BCCjuPJcR7FoGLJi OK4rcdobHMY7QKiruF0 gsuGUJilmXx7bqJEqxJ tcZjFcZmNoYXJzZXQwX EMzxLyeNIBxAMy2eY5B AmnoRLU1JVYDNkzoQYZ uEO1El1voTVWrmMTvXK U3TVolaBFwHSLsIVOuT Vx7HXLkJCjqjVAzFI2z kAqdHukvxRwlx9JulZC cXGlkIDUxMDAyIFxcZG NkMT7QEtKsOJMcAkhbF TDwBPd4KDo2EL2QQlMn EAPoRZrdIKT5MXCoEMb 4CTdaWU2MXRVkZjRjUK R0DEJ6LPm3NCKnYCYoV iBcXGYgQXJpYWwgXFxm cyAxMCBcXGZiIFxcZmw lULmwL52qkWbmeC7zLw vkedDxFBT1LIIsxdYZX lxwbGFpblxlcGljTmVz dERvYzEgDQpcbHRycGF yXGxpbjBccmluMCANCl xsdHJjaFxiXGZzMjAgU tK3yh8tEEJegA9yCINi NWTbBLY3DZExAJJet49 kbhsgayI3BPHuNGX9EA RyvxHxRD9yKXynpEEtT XRqFrOttMdlf5ZuTWFb YXQgYWdncmVnYXRlIHR fEQMaPKM0RNIiBhX2YO YvXCSqjHmqLX86jIHlv Eznd9TqlFs3jPUiGRjn SLRnNsLmDTUpx4WoJ6J 6GGOtNCosg8ukPMKxFH cfn5VnDSeGRNQYSG9QH W8fbBU9KThCT7RKX4vJ zQNbOKF7iBR5KZGBXaz qoPO2rUB1lK40HLEiPC XhbIHqBNxdX861P3H6P UBoKBpcz0xuBVOtFMlv u2AfXGwNWNIKPT1NLJ6 twQH2LGrIF8WZYDebQL QyNqnwxICOHVU2MHunx HghxNb3b5phlKNjm8c5 RRygOHK1xGnayLVpcdx ybACxaNtycqRgMM3EAX EsNTkgIJUgtHKSWHU5U M6tRJinrTTkwrncIUVh A2CgA1LqjnYscNBoUFA gxfKsq4inXHV0GVPiuF BatGQyRhOeEpyzQNN1W Dryc8bbCTZ8MQDkpLOj dDAgDQpcZnMxNntcZXB rA3CyO4PegnZ3EMg4 Disclaimer (test code = r5tlrJOeEZBwwWCrJiT [id number]) tPHXwJGHyr2usQONpoP FuZzEwMzNcZnRuYmpcd LJgOXSuIeCdi0edh343 hORol7dsWZRsMyW0vLP cIPSfqKFuL186VHExZA uyt2iam2ZgNXLrfTBri 1Q8KHTUkhfehWy2hVvx V79nv0C3MmxfE7tyWJM zGRPbZ3KnLG3iMUAoRf v9DQP2IYV4ERYwUYQpL 5JzGV8lOCFmpWJuWPe9 e3ifyLtaZATeFYR5s3y oBKrpdyGkVI5wek9wgW t7f2msdvPqWBYdVBCpg BSIXACqK5YwtJolZh0x sGz8tSkhJsbgAAD2Cnu 4RM5mwi12cel4jQmuKJ QsfxbvWxV9CCbgUPSdp ebvIQn7PQzrHKGndUB4 KHUxsZAbA1LgURHoIF0 wfsj5FVY9KHqfQOLmWh W1LVAfvYOpHOZrjKbvB Ypoz915MLZ2BnBwKU4n S2Tdw3J7aA9atHJvZEJ csLYgVoIkRHDadh7trB KaJKkmw8SqAQV8qlI7u NZtaVWfWVJoXZ27Ggye n4PoYeujMUY6SVDlulF pn3Cct6bwUlMejoVlM9 noI3ZzFQOtDERsLVLuH vEsnvQnu5Imt4UqgUWm xUg9v1qpEDQfVAHbyMd et0xtOQY1DJShZ8K1hB Npt8ooGMthZFUaeOX0g zN1TOYicLIzP7OwtE5w YKGuVZ9edxm8a8dhDOP 1CHqgMSNyQwF5kdW9HO BcaGVhZGVyeTcyMFxmb 751DND0PbZgNUAtf7Zo Y5YqkMwsX40qiZllV60 eJDAoxKjfpT0zsBzqoY 5cZjBcZnMyNFxxbFxwb JKlavomNRsthvK1JNmz ypruITRfMFpiN6erAjY gEADxjIlyVSwsh2QxWQ OxZSDaLlqlspQ7ZOVMm 98uJVSwh0WyQHHavJ1u eNTdPVmutxUohGR7PMs hdmUgYmVlbiBkZXZlbG 3qEFAhHC6iZSRijpPfk e7zuxRbGUVvDAHkK6Oc cmlzdGljcyBkZXRlcm1 zudNmWVO3ZIAWRI5ZEV MgRGJoo72pEPMddUdap D1ifYXehqCzKBVbi3Fg oR4izPSCMTVhB7abPW2 aMCvzb4NozPWvwEIfxP B3DHPjw6QjUwFblvGyv ZEafQKiM5RksJszR8hs BQPzHMYwkbAihKBio1M dCJEulEC7yHAaDI4DIb NVt09zVHUgRYFOozEuC WKctOhtdGN8lrE5jF8t LiBJZiBhcHBsaWNhYmx bNUNub739fn5eivB1GY HyTJHcsqupk8DjZBCmE RFukC35UYYwSVZnde0y ydksbPUkzlAgY4Xrqjj 2qI1mHUPxLTwbHNGfYP ZzMjJcbGFuZzEwMzNca GljaFxmMVxkYmNoXGYx GBpbC6nxUdChTwAyVgh wYXJ9 MD [facility] NGS Blood [id number] 21:42:09 Test Item Value Reference Range Interpretation Comments Molecular Diagnostics (Received) (test Yes code = 8400) MD Hou Fnkcexxvxoo2284-20-13 20:47:16 Test Item Value Reference Interpretation Comments [...] implementation of new instrumentation in the [facility], allowing greater sensitivity of measurement. Urinalysis results reported by the [facility] using existing instrumentation, as well as Urinalysis testing performed manually or by backup methodology at the [facility] will remain relatively unchanged. New reporting parameters and units will now be reported for all campuses. Lab Interpretation Abnormal (test code = 24650-0) MD [place] Ctihqexrvc8290-68-29 20:29:52 Test Item Value Reference Range Interpretation [...] A Lab Interpretation (test code = Abnormal 77572-7) MD Daily CT GUIDED BIOPSY [id number] 22:06:11Date of Procedure: 12/05/20 Attending Physician: Jem Yu MD Pumper Gauger Apprentice: None Pre Procedure Diagnosis: Cancer of left [...] 1. No follow-up with Interventional Radiology required.[facility] Qqrdas6160-43-47 02:31:19 Study acquired at another institution. For comparison only. No [facility] originated interpretationrequested or available.[facility] CT Chest 2020-11-28 02:31:11Study acquired at another institution. For comparison only. No [facility] originated interpretationrequested or available.[facility] CT Abdomen and Suxnws7060-70-52 02:31:03Study acquired at another institution. For comparison only. No [facility] originated interpretationrequested or available. [facility] Rjdqyowitmflcw8724-60-34 16:43:00 Test Item Value Reference Range Interpretation Comments Materials Received p5sciEWtYHIdzNFzKbGgHC (test code = 9973) YqYZDfq1hxXVQgrSUnTlZt MzNcZnRuYmpcdWMxXGRlZm Nfo8wkt790tSJkf9jmSSMp UhJ5mAYnETPyqDDvN053QP BbQHaia0skz2DpDTSgbBOr u8B6ZZYTgriwzRg7uCdsE5 9xw8Z5CdbxZ7fmTVAwIOYu H2UbJO1aNHKdQka6RDD6XZ V5BCCuMLLgM1JuHJ4nQIZk zSFcCFx4r9qepLlcKQMuKX V9p9tzERdrmxRpHX4spv4y kMz1o1ghtrOrCWDvENEteC GUKGDtO9BqhEwiNs9huDt1 vHuwXmgkIUU6Syz6PT5gnn 04iev6hXwjXEWmxkjoXvO0 NWrrMFSzkopvTUl0GVhpFL JnbDcyMFxtYXJncjcyMFxt MSZxnVL1HASclXBvV6FtIL TwBMuqEHFsphs3CtAoOr9o xAZknZbmFYkug2fos1dpbY SjTio0QMJiGlDtQneaMFpf q2Sse5czHVRhev4iZHL6rH YieWdjc7A6qKKlCUWlzMOb vqRrWVMofl35mPKmtRJeeX Yvxl8balSuuGCscJWrOPL5 cHNocnRuXGZldDRcYWVuZG 9onKWxVCPwgL1dkmvoBYWj YnJkcmhlYWRccGdicmRyZm 6jxJluSPG1BEtnR3zqjR7u NgV4VEzbH4lmhV4bWCa0WY omnQD8OJInkP9wMI0dgrgf q2lsMwCfHM6ajxiiy6hxDt EgJY5utru7i6ahQSP5YCvr EWEpLaC6eeL1FGOrsULgKL LjoUxfLPwlg128TIN1GtMu LDQtg0ReR9ArlQpwB58ubC agX99vWJMxzPfysO3ivTia bW6jMiIzPoJlXXs4xc04EN x5nhlrgVqkZXh7sdVoEZLs GDJ3SAAdmOYlYHRoY7o2mz HeWPDgRLC5QHUpoVDlLZLk P8x2suNqLKK5GLf2obVbVO RmdDNcdHJwYWRkYjBcdHJw YWRkZmIzXHRybGVmdDBcdG SfuL7ivMpcFMXrkJBsxS2a HOG8IMRhdvfyOkChgCPeJR HhnLVofb97CENpkgTyiRHs eJnacPGnSVF4IVUlNHEaZB VsPPB4TZSwPhSdjjSuNGow bGJyZHJiXGJyZHJzXGJyZH P2TCIdMoVuqwQnKIfnxTNt WWElRKNoVIPdPUOdPZB3EA BcYnJkcmNmMVxjbGJyZHJy MNSvFUZfAJXdJJL0SUAsRn JkcmNmMVxjbHBhZHQxMFxj uYXdWML4E4ochVWhILMcZA lqoFUwIJFzF1msvOIjUVru XGNscGFkZmwzXGNscGFkYj UyE1ltGUHdInDgQ4UwbJj7 MDAwXGNsdmVydGFsdFxjbG YxEKL2UADrMGQvWKRdJHU9 MTBcYnJkcmNmMVxjbGJyZH PyEERxWFQcOEKxTML8VGOt YnJkcmNmMVxjbGJyZHJsXG ItBIZdCPJuPHC5RODwBlFr cmNmMVxjbGJyZHJyXGJyZH PlUHRrZFA9OHHtKrQaojZj MVxjbHBhZHQxMFxjbHBhZG X4D8jubGUmCNPoBFogiUWj XMBqQ4ryfQHpGYiuLSQovD TvFndyOLChdXNoMbFrY8ij ICGbVtDcS9ThjEt6TyEsMH NsdmVydGFsdFxjbGJyZHJ0 BDGiLQPkMCXkDCW0YEUpGm JkcmNmMVxjbGJyZHJiXGJy SQEdKFPpITF3QLFjMkVyxo NmMVxjbGJyZHJsXGJyZHJz GREoQTD1JGSkKzPrewYlXJ xjbGJyZHJyXGJyZHJzXGJy OUI8MRDnYjEnrqTzBFrtyF HiZOCfUCsdwBDlFRX8R5gn bHBhZHIxMFxjbHBhZGZyM1 xjbHBhZGwwXGNscGFkZmwz IOLhzCIgOsQxF0kwGGTcUx MoV8TejKy6HmEsYYUfhwUp lV64Nztgq1OlWUTuXMC2DV xzMFxxbFxwbGFpblxmMVxm czIwXGxhbmcxMDMzXGhpY2 ayKrXiLHYxqHgjMRyfs0Ux XGYxXGNmMlxmczIwXGIgQW NcUEZfrU2gYkpzV4HgoY2s PKleJpfmS8ciPINet9DixR 5lZFxwbGFpblxmMVxmczIw TNdiysmiFPVrIMboP4stYm DcIAPakMxyMOypk3QdOJTi UMLwAffntpLgAFd0iyAuHY NlbGxccGFyZFxpbnRibFxz j2BoquChyKwoXRIbMOw4wt IposvypUs3sXPclDmnKIAa qYuuwW7vNuBqYpJrSLwlqL FpblxmMVxmczIwXGxhbmcx XSCbTQoxM4yaAhOaOBRyfS spAIhtv1EzGVDiVVHwYwkk mxAuYRQqR06rfGLbwYZrZW BsYWluXGYxXGZzMjBcbGFu ZzEwMzNcaGljaFxmMVxkYm BfYLEzSYkzF2egXmHrC8Ia RMWgUtYicRHkP8prO7GigQ xwYXJkXGludGJsXHNzcGFy UMW4uWFozdAgaQVepLXkVW AdBHlcLCC4eLAfodbbtBIt owhgEIhnsdM4BRRmWAnbKC YxXGZzMjBcbGFuZzEwMzNc aGljaFxmMVxkYmNoXGYxXG ahV3afOlDxX1MuQKHvUcFq YiBSZWNlaXZlZFxwbGFpbl xmMVxmczIwXGxhbmcxMDMz IMrjU5enMaMoRIZdqPexBZ tow0MhPDUaHMDwZnmlxeNw PKs7jiOaHVCpcXfcuK44Fc lbdu06PQWtg6jaFWRxQ3Wg aDEwXHRycGFkZGwxMDhcdH JwYWRkZmwzXHRycGFkZHIx MDhcdHJwYWRkZnIzXHRycG TlWCLuPDEznMEwLMZ5E6c0 inRzDPLqUYz0vbUqKPVvXn SlpYCoXVT6NVn0EbozuiS7 aTPdC9c7DmouebXeBJeawC Hphl24PURvsmCnlAKhnBlg nTJzDOL8LJFnGMTiQIHjND A7JUXtJmZvzsZnZBgjxGOq IEGzUFDeYGQjMPUcWGJ8OP BcYnJkcmNmMVxjbGJyZHJs FPFkCWUnKFVoHFQ8TBVbBy JkcmNmMVxjbGJyZHJyXGJy TLQaBBBbQRZ9ORLuPuXcth NmMVxjbHBhZHQxMFxjbHBh WET4U0ffuIAhKYFqIBlzcB CqPVUzB8scnESnMVpiDGCz cGFkZmwzXGNscGFkYjBcY2 doXMCvMaToG1EhgXx0RJOr XGNsdmVydGFsdFxjbGJyZH R8ZOHfPPAqAJThMQP7DDGj YnJkcmNmMVxjbGJyZHJiXG IwMADwSHXpDXA2HWViNpPx cmNmMVxjbGJyZHJsXGJyZH XrGXPlFEX4RSWsZnZgdzFg MVxjbGJyZHJyXGJyZHJzXG DaPES1JBJwUgZbjiFtJQdv aFGuIASuGBkpeXTkVXL3W0 xjbHBhZHIxMFxjbHBhZGZy S5xpfFNnPSvfFZOgyTWjFd rdBNAcwURcRyLsC2peWSHu MzGoH1YyqAd2XkZiCJHqtp YjaYRlzLjgcCMsBRM7WGRn VZUfNTByWVM9NXWeCpLljg NmMVxjbGJyZHJiXGJyZHJz QFXiSLH9NXYyCbDdysYgZF xjbGJyZHJsXGJyZHJzXGJy IHQ1QLUwVbOataUlQQgtnX JyZHJyXGJyZHJzXGJyZHJ3 MTBcYnJkcmNmMVxjbHBhZH XgJKftbEXrAHT9K3flqSGi OYLnVHhmaFUuQYYaV3ashR BhZGwwXGNscGFkZmwzXGNs kBHhGaMtK2fcZIFiMnSqI1 NfsHc7TaZkABAlzsCkxY19 Ostze3JeFASpTIO4VEowXT xxbFxwbGFpblxmMFxmczI0 XHBsYWluXGYxXGZzMjBcbG FuZzEwMzNcaGljaFxmMVxk VqZpAUPzVZqsK0unCxVwY1 XvQSBvZiEmHZ8gDzXuPMY2 NTkzLCAyIFNTLCAwIEJMT0 MDDivsFDPIC6HziVAwTNNq QRXsSS0qOQM0KobfPPJFSp drGOHZFD6XB5OvDBFfWXTT XHBsYWluXGYxXGZzMjBcbG FuZzEwMzNcaGljaFxmMVxk TdLcEBGdOWenS3hlUaTqP4 NhEQXnPiSkhEIdB9suM9Cz bFxwYXJkXGludGJsXHNzcG RfOZU2kJKcstDhwMrnpZks iG9sOzHcRwLcFWxnaUAcas xmMVxmczIwXGxhbmcxMDMz VZuwZ9fjAuWwNBOzmFfeXV pwi5ZlNBGpBSIcZzjgisLq IDEyLzIvMjAyMFxwYXIgMT ZdLl5vKTEhXTDuKSzhHIRc XGZzMjBcbGFuZzEwMzNcaG ljaFxmMVxkYmNoXGYxXGxv X1smNtYkB2UaGAXjNwLsrC RoO2ttL8BcuVllHWKdZYoh gYShRMOjsGOxCTE6pIOhcz SroClolVazfF2xMoNqHuFa NFxwbGFpblxmMVxmczIwXG gnbsiyTMOnSQaqN6vpFhSe AQIcbEgiHUfww1IeAIWeWP NmMlxmczIwIDEyLzEwLzIw BiVqdUVmKUWtNxP4ThCeBr FxpIgbyK0yHlNcHoErKTsj KP9dFAOvH5qjoELyTRExSC WuP6fpWlClxZ5hqFqjXHjk ZjJcZnMyMFxsdHJjaFxjZW xwSZjaqVCaPNIwf7pdVZJd XVMhyHVcVRZ7aMVitzQvhW unxXnxhG1eZuTtLfGhLZnw bGFpblxmMVxmczIwXGxhbm cpTETrXHccP1ooBhPcYMMo aMowYGfar6GzTPKdWAEwUz BccGFyfQ== Diagnosis (test code = t2ygvULpEYGypKE0PtAtGF 34) Ipr3uqy6TejAGuvAQfRGqw bAXpqaRhnv76qDL8aK40EG 3rAUJcEvK2KNFardA0Kpb2 HPYnNQWcfSSgV491x3ckg6 hqvuDjaNT2GVAqVBI7DXeq pxDgedShXfm8QKF7uDxjMF LyAKOnXVgpSWGyEvGgE4T1 d1rxTSRbKhWbJES6BIjuOT RdAVUJJJEfHBYYE9NQGocq RBISN0YsHUKqtWnoX6LeZU GvhpWcGy2nUpTvJyHsDOWt XYJdP14stXLxPWRbVUIgYF RlciwgbGVmdCwgYmlvcHN5 GG7lJC6xg2KbDIRdBKjfLA wgQTEgTDEwLCAgQTEgTDEx KTpccGFyXHBhclxsaTcyMF nxoB93YfRvZGLEDLfTWTTR KVTVS9DCIPgAZBjfT9AMB6 pHD07BSSZBWHfXZTpVEUVE CBCPMUHMBYPXW9MYPWPOBy BccGFyXGZpNzIwIExBTUlO ONPFSo3VNhvYUSkBHwTUZG 0IRcIbB9PMECNADV7MWrYl NVQrhswjtVHvP0OaWDPubg srLxOnXATzT8ptKTEtHMEm bnQuXHBhclx+XHBhclxwYX OyhZAvXYijQEfuwR8uVPUP U8UWODEnykfyUMC7 Paraeducator(s) (test x5tdkTGzYNKjzIF9OpAxDN code = 9863) Jqq2qni1DbtDXabSUyJXvx yYTkiyWtda09dMW4uK16WA 4oQVSiUdH1ESJdmiJ9Xzg1 AXYoBGRuwUWgG206z2abk7 uczdRrfOK1rHlbHDDyIHIh NSqxJYCvYbNgR8EZZXWkfu 0= Disclaimer (test code = t2gnuAVjOANciWOrLjEkXG 9844) HkBALdo1xrARZezZEoYfNx MzNcZnRuYmpcdWMxXGRlZm Iul0sal194bATej6mfBNJl VhW4sSXoLCRtlHXuP401GV JlHGzxa8nds4VxMQPyrOIm v0W3VECKzydpwAs5xTekS5 8ng3Y2JkduT2mcKINaOTSl Q8RlWL6tCUVwVpv3WIQ4DF M9IRAvOKRaX6BnUG0hYVEy aUDhAOq3h1nsjIlnPWGtVI P6t8wqFFhzpnPtSZ4jpr5q vMv7k1wuoeMtFJFzLHEbfC IFQYPqS4VliVabYt6bfEy6 yGujCcnfQRO5Lpz4HL5sbt 94vvh4mKviKLQhfravMnP9 OMczVLWylicvMYa9APvqBR AmeFD8PMBnxRYfH6ImHCFk SA9bmnl5HEV9CCybBPCtEr S8ASOvtJQsJJXbuCnaLDlg p281NHE3KxUmHY2oZ2Jcb4 H5oQ3xqGHoSYNecPXmJmXk GHQezz7yvNGbTDnth3XaMR N1vvZ7oEBxlYJeRJNuZU66 Qnbif4VnCcreARS8CTDofl Kfg2Vox9esJlHccnUdT2py N9NdJEFhXJLyAWWlEgPdyl Aqz4Ens3FmnKLumTb7r2sc OKSrLUVaaGppx7tgAGO6WA LoJ3F6oZHmy7irBViuHCOc yAO7oaV3QCPsxRCyJ6IbvN 5aXHTgNS5ejpk0y7zzUKZ3 XBrpPQVcFeF8plO3IHQtnG YmOVTcaWbbMJcca896SXY5 GdXhUNTac5HqO5LlmMnbC1 0olYueB79pDKXgjBgdqJ9w wWyxcF7aWfQzVwLvPTvuzA gjgZEhopjaRXgaelS3PCjs stkuVTTjFAlqY9gyVzZrZB HxxBhvJTrcq2SaAKOxDBCc GluksyN9ROACr84hPYXls0 JvIJZdvR6ecGVnEZvyatNd uTS9ELsnwpOaGmGlciItUQ DnrA2rPXGhFT3sICHwgvHp yp9mwkEpFDTzPAUtT8Pehg xsyVzetpJoFCCdcr1kqgTc HMZ9UXGUPY1RGQYtIIJut0 7qGHXxvZcbkW6vaDJhsxRz ESQus3CfbE7okRIDKKFzV6 xbKP3uNGpms1EuzOFwsQTj uIC2DJItg6UwWuZnpmCokA NwjMLwH2ZewSrxN6bxOGFn VWZsexGyyIUnx0EzNDGfgS N5eVBpVW6YTqGHp37kHFTd UFXAjyPeMOHenJmjhMD8sw G5kR5qPqHOQwKetSPnxZYs LjiiZQOss223mo5rnuX9HU EcSDEydcyiq4OyJIOpRTVj rV78TSVbIZCbyd7ahninbO RglyMaG1Rkrpt7dP2uZKOf YWluXGYxXGZzMjJcbGFuZz EwMzNcaGljaFxmMVxkYmNo DVEaNUwmO1giVsNgUzUlZg xwYXJ9 IWONA (test code = IWONA) The previously reported component Comment is no longer being reported. MD Thomas [id number] 22:32:25 Test Item Value Reference Range Interpretation Comments CA 19-9 (test code 21.6 U/mL See_Comment Results g reater than 9500 = 5171) U/mL may not be reliable due to matrix e ffect with extended diluti on as it exceeds the man ufacturer's recommended kilpatrick it. Caution should be exerc ised when interpreting arizmendi ch values and done in con junction with clinical c ontext. Testing Perform ed at [facility] Lab Utility Division Project Manager [facility], [facility], [place] [address] [Automated mess age] The system which ge nerated this result tra nsmitted reference range : <=35.0. The reference r nick was not used to int erpret this result as opal l/abnormal. MD DailyBHCG, Tumor [id number] 22:32:24 Test Item Value Reference Range Interpretation Comments Beta HCG, Tumor Marker <0.6 See_Comment Tumor Markers BHCG (test code = 9370) Reference Range:Negative: <1.0 mIU/mLNon- pre-menopausal women: </= 1.0 mIU/mLPost- menopausal women: </= 7.0 mIU/mLMen: < 2.0 mIU/mL Te sting Performed at [facility] Lab Utility Division Project Manager [facility], [address], [address], [place], [place] [address] [Automated mess age] The system which ge nerated this result tra nsmitted reference range : <=0.9 mIU/mL. The ref erence range was not u sed to interpret this result as normal/abnormal . MD DailyCancer antigen [id number] 22:32:23 Test Item Value Reference Range Interpretation Comments CA 125 (test code = 8.2 U/mL Results greater than 5120) 11,500.0 U/mL m ay not be reliable due to matrix effect with ext ended dilution as it exceeds the media law faculty member's recommended limit. Caution should be exercised when interpreting arizmendi ch values and done in con junction with clinical context.Referen ce intervals are n ot available for m karl patients. Resul ts should be interpreted in conjunction wit h clinical context. Testin g Performed at [facility] Lab Ambu latory Care Bldg, [address], [address], [place] [address] MD DailyCEA [id number] 22:25:33 Test Item Value Reference Range Interpretation Comments CEA (test code = 1.1 ng/mL See_Comment Reference R anges:Smoker 5203) 0.0 - 5.5 Te sting Performed at [facility] Lab Utility Division Project Manager dg, [address], [place] [address] [Automated mess age] The system which ge nerated this result tra nsmitted reference range : <=3.8. The reference r nick was not used to int erpret this result as normal/abnormal . MD DailyGlucose, [id number] 22:00:39 Test Item Value Reference Range Interpretation Comments Glucose Random (test 105 mg/dL 70-199 Effecti ve 06/25/16, the code = 9360) glucose referen ce intervals have been updated based o n [place] [employer] [place] (Standards of [...] risk for diabetes Testin g Performed at [facility] Lab Utility Division Project Manager Bldg, [address], [place] [address] MD DailyUric [id number] 22:00:37 Test Item Value Reference Range Interpretation Comments Uric Acid (test 6.0 mg/dL 3.4-7 Testing Perf ormed at [facility] code = 7955) Lab Utility Division Project Manager Bldg, [address], [place] [address] MD DailyLactate [id number] 22:00:33 Test Item Value Reference Range Interpretation [...] h clinical context. Testin g Performed at [facility] Lab Ambu latory Care Bldg, [address], [place] [address] MD DailyMD COVID-19 (AVIVA-CoV-2) PCR [id number] 12:19:48 Test Item Value Reference Interpretation Comments Range COVID19 SARS New Patient Indication (test code = 23158) COVID19 SARS Result Not Detected Not Detected (test code = 85038-9) COVID19 SARS SARS-CoV-2 NOT Detected. Interpretation (test Reference Range: Not code = 62994) Detected Methodology: The Corey RealTime SARS-CoV-2 assay is a qualitative real-time reverse machine wedger polymerase chain reaction (calculating machine operator-PCR) test to detect RNA from SARS-CoV-2 in nasal, nasopharyngeal and oropharyngeal swabs from patients with signs and symptoms of infection who are suspected of COVID-19 by their health care provider. The Corey RealTime SARS-CoV-2 performed on the Usetrace000 System is a dual target assay with [...] CLIA-certified, high-complexity Molecular Diagnostics Laboratory (MDL) at [facility] under the Food and Drug Administration (FDA) s Emergency Use Authorization. Factsheet for patients: https://www.[facility].org/ AbbottFactSheetPatientsFact sheet for healthcare providers: [email or web address]://[email or web address]/ AbbottFactSheetHCP Test performed by:[facility] Molecular Diagnostic [address] [place] [address] MD Martin [id number] 17:16:00 Test Item Value Reference Range Interpretation Comments Case Report (test code Surgical Pathology = 104) Report Case: [id number] Authorizing Provider: Vinh Borden Collected: 10/31/2020 04:29 PM MD Laurie Ordering Location: [address] Received: 11/01/2020 08:40 AM Service Pathologist: Sang Willingham MD Specimen: Ureter, Left, left ureteral mass biopsy for molecular testing DIAGNOSIS (test code = t9rvlVHxPUIny5ojXQAmyA 3220) FuZzEwMzNcZnRuYmpcdWMx IHtccnRmMVxlcGljOTIwMF mhtzYyWOTwnQUcL3Pojsbh CPetZA7vNV2jvBwfeJVhnZ MvVXJiJjQsf2loz215pZIw e8gbUHFRkruqdWd6uEhrA4 0be9S2ThcfI62hmLUkAZgl bGFpblxmczIwIFVSRVRFUi gfLKOMXScnMvwELAYPQK8D RY5XX2O1EFTsynFiVZNnYM BQQVBJTExBUlkgVVJPVEhF WPsCWXXVJDLYXK4YPOJcJK mCR5nqU0JDDIArFFrAAqYZ UkFERSAzKSwgXHBhciAgIC VfQXQbZTZgFTPKZ5GKYHqq PQ4SPFDCBfFyQU6GGuLFAH YKMWbTGbyGRTUQP2TQTHLp xNXvHLYxKX6bGnHBRBNOHo LxRz3QOGcGDLPLY4JXL0ZG ZWLZTGgJYfNPMC9BHQDwnt 16KXI0TxNip3V3ZPE9VQZx IYIcy6jcMFVzzSWyPpGaZq NcZnRuYmpcdWMxXGRlZmYw r9txv888nZEhz8zuGAGjNx L6jTQeJALebSFhO760SBFk TTjir0dwo5FyCLVllHOlf3 X5DSVQflnciIa3iQvvK17g d9I4CbkhX3mtTOKrKERiE1 MaVW9zKQGwXcc6QCM1YII8 TCBkKHHaQ2OxVY1kKICliF DeTHv7u2aagLgxIKEgNGD1 t4teCNfzjmFhPW1bwu7rzD c6x2mrdjOfNNZgRXVclAUG HFAeQ0PwlKqxLg4hcDr5dE wjXwqeXLA3Rzc7DH1iwr43 rsz1oXrxWZUeuqhhNvH5HI xrQUJrleqcKPg8WDdnLCEc iJD4MSAjuVUkJ8IcUUZsAF 2aphf6WNF3YXruTSJcZiP6 NDBcaGVhZGVyeTcyMFxmb2 69ZUO2XaMsVI7kG8Vll1B2 zT8wqEGkROVduKReVtLaTH Twgd5zkKYfUSgix3ShGYA6 oiT9wYNewXFfLDAdWpQ2CG ahFL7jku69WJYcLXB6zz1f bGNccGdicmRyaGVhZFxwZ2 DmCOHny476SANrB2PtUDGn z1K7lnHrGiSbCRKnsCB2qu Z5WLPfVZ3vmllxg5sjMRom IKqkCCRtnsN7egK7VXBctI SgI3IxdB6fLBVaBI2xzxmn q9csXDV2WRueFQFvUKY4Md TxSWWos5Nwdhx1CwVsh5Iv bJCkGHmcM98tm340YSThrk NgJ8vuvOAwyplbuXDieypv OGpwvwF9AWVhJRfbmvugDV DsJRkuI5bvNtCwQJKcfLmq CJwhu9CkLSSiOFJxZyLrmC SjQYLjHmh0YPPqvNLdQROn FgVaJ7nquvxnOtZBGQWyj1 jeO4cmtHKWrQLsL9PlAUwv tiGeICoaPWieJXJsBQE0ZQ 5vTZTcMJQbat63 CPT Code(s) (test code o9qkcKGcKURklFU7TvTyWS = 3357) Mmh2mbr0LslRNrsLRfWAhv pIQttrFsxr50wVS2fN31WD 2yWKNhDbM5AZHwwoB7Ysj4 GBPeHMRkjVGuI049c8lbt0 wgatMiaEK2nKdvTVNhIXBv YWluXGZzMjAgODgzMDVccG FyfQ== CLINICAL HISTORY (test q6mpwSMvZVUgoEX9AkTtYJ code = 3356) Mfx1kka8UlxTOckVImMHkm tECupmJgid56tSK3nX82MW 5cMKAyEdW9WEWehzK3Zgf6 RSYcJYJqvXOaT066i7dzf0 wdlhBblVI4DYUrJTE3IKct gvGaorP0FFnypLWmHrK0J4 1ccGFyZFxwbGFpblxmczIw IKAcY3UtFEFjSXvnVvSigG AglYDqUAitnUCdwnPkaW6s x4vcKy1fQC0umUMniNofss R3SGI3nL8dTOQoky1= SPECIMEN SOURCE (test k3rpxVBkQSJtuWK0VoQqVO code = 3377) Bfb6dkl6UbqBIdkQMuDExe rXMwbrPtob00pQZ3bZ60YR 5sOWCbZoL9XMPwhcN6Qsb4 WOPaWTAesOZwX808s5okt0 sctnUmuEJ8mMamJCIwTPYp YWluXGZzMjAgVXJldGVyLC ToUPG0NCMkoi3= GROSS DESCRIPTION (test c8xilMQhHFGqoIRyEaNoNS code = 3366) NhXKFrl9keHBBmpONzYcMc MzNcZnRuYmpcdWMxXGRlZm Qey2phy217xIHyh2gcKVWj HmX7kDEnGAMlrRCoX764v1 wvc8lgxsCzcUH6ZGAcRVD9 SLnuxuVhriO7WXmizZHoFj L3XXvkzhRkQJsfezKyljIb Dqu1TKYuK699IQJ9cSulq0 yrQCI5QWSfXYSoPhDqNm3b xTMgH454JOOeLQPTBWXeqB c8OGYlddOegeMcqLYSt870 K339h8ofIYXoasBxaNgRoy isz5shZ586UITubFDdekAa AcRdCHRqtRQxkUZ3PAXiQE 5qsjxfVoElQH0iiggvYlDl TG9yqcb2QjYwMA2lkdngVx XzPPsrAYYroqlpVYTay5Og fcfpKQ2yV1Vmg7F7sA3qiO OcCYFbxHWwXtNiGWNjvv5y jPZcOPips9OjVBX2hmP4vG UcxQBhOODdJK24Vjkaj6Ri DjbcCNY2GMJgggBwk5Ctz2 lsWyQitlUmB6bmA9IaAEYz MCEfZWRiVcGrkaItb7Fax1 DchUSkqDe1g7pgDDKrDHVx vMpwm6wcGKF9JXDiC0X6jZ Zrz2njURtsCWHvfEI9tedc UNsjMNPqdgW9jjmmZIqwUX HlqVW6dnhfYBzaANVaYiY6 ukgjAFtlNTKrTSJ3JYoor4 38DPY2QQjlSaarCSfwCSXw bmNvbnRccGduZGVjXHBsYW luXHBsYWluXGYwXGZzMjRc jYopsUsrlW7yEfOaWmSwPD qzBG9iSZXpN0yvfADyNBNt HQQrK6zgAgZioC1seJxdYV dqwrRhHEYvY2WbynDqBJsi WFYxex3gfPqfDKyqTcEnLR QgdGhlIHBhdGllbnQncyBu TW0sBASqO6Szz3Snc82gpn VtYmVyIGFuZCAibGVmdCB1 qyI9KKXuCAOdYQEccIz0yO FhGWY9OL0cKSRdatUsVRtc a0Nnu08tyNG7tRZjpGNqGw WtH34puzMhCU7iRYX3pmrh SvL5oID0onHrFmLoW57geX 1dN8XuFQNxh4XbaLKpR6Wk BMA2EZXuTSMjpZHvjrUppK TeTQPpjwG0kIrvmLRidcFn BqpedFBrQLSuIE7xZIA3It 0ehBFmULVtxlF4h8WbAOby IEExLlxwYXJccGFyIFBpbG ScZTElM7OrwEvgccrjFCFk QDxTIRjSV6QSCKmbXMK1 MICROSCOPIC DESCRIPTION g3lwkWVtINKrxSH8JyVsUM (test code = 3371) Twa2ebx8DnoDSxfMQmOBzq nALourReuy26iFL7rB51BN 5wKAYfQeK7LLIeluW7Pga8 DGExEYRigRVvN349z1mnz2 wyszOugLB6iXgaENZrWLLx BWmwOYSkVgNzMDTjAe6sbG VkLlxwYXJ9 [facility] HospitalTISSUE [id number] 17:16:00Surgical Pathology Report Case: [id number] Authorizing Provider: Vinh Borden Collected: 10/31/2020 04:29 PM MD Laurie OrderingLocation: [address] Received: 11/01/2020 08:40 AM Service Pathologist: Sang Willingham MD Specimen: Ureter,Left, left ureteral mass biopsy for molecular testing URETER, LEFT, BIOPSY OFMASS: - PAPILLARY UROTHELIAL CARCINOMA, HIGH GRADE (WHO GRADE 3), FOCALLY INVASIVE INTO MUSCULARIS PROPRIA - NEGATIVE FOR LYMPH/VASCULAR INVASION Signing Pathologist Direct Phone Line: [phone] signed by Sang Willingham MD on 11/01/2020 at 5:16 [id number] ureteral mass biopsy for molecular testingUreter, leftReceived [...] Name GEN WHELAN Date of Study 11/01/2020 KENYON Gender Male Visit Number [id number] Race Room Number [id number] Number Date of 1935 Referring Physician Vinh Borden Age 84 year(s) Material Planner Nusrat Montemayor [facility] Interpreting Physician DOV Barrera Procedure Type of [...] 1.73 mmHg Deceleration Time: 284.4 msec MV Pati. Peak: Aortic Valve Peak Velocity: 1.41 m/s [...] TR Velocity: 1.87 m/s TR Gradient: 14.02 mmHgModesto State HospitalCT, CHEST, WITH [id number] 22:14:00Unlisted Reason for Exam - Click Yes and Enter Reason Below->YesUnlisted Reason for Exam->Urothelial cancer staging [facility] : 1935 Sex: MFINAL [...] MDReport Verified Date/Time: 10/31/2020 22:14:06 Reading Location: [address] Consult[address] Room CT chest with IV [id number] 22:14:00Interface, External Ris In - 10/31/2020 10:16 [...] prominent right mediastinal lymph node Signed: Makenzie Gonzalezort Verified Date/Time: 10/31/2020 22:14:06Reading Location: [address] Consult Reading Room [facility] CenterCT, [facility]OPSY, [id number] 19:04:00Reason for exam:- >biopsy of L ureteral mass for molecular testing. can tumor be accessed through N?[facility] : 1935 Sex: MFINAL [...] Gutiérrez Verified Date/Time: 10/31/2020 19:04:51 Reading Location: [facility] B1 C013Y CT Body Reading Room CT [...] post-procedurally, no significant hematoma. Signed: Naif Gutiérrez MDRgriffin hospital Verified Date/Time: 10/31/2020 19:04:51 Reading Location: [facility] B1 C013Y CT Body Reading Room [facility] Metabolic [id number] 05:10:00 Test Item Value Reference Range Interpretation Comments Sodium (test code = 139 meq/L 304-462 3022-2) Potassium (test code = 3.9 meq/L 3.5-5.1 2823-3) Chloride (test code = 108 meq/L 98-107 H 2075-0) CO2 (test code = 21 meq/L 22-29 L 8-9) BUN (test code = 25 mg/dL 7-21 H 3094-0) Creatinine (test code 1.36 mg/dL 0.57-1.25 H = 2160-0) Glucose (test code = 83 mg/dL 70-105 2345-7) Calcium (test code = 8.6 mg/dL 8.4-10.2 98994-8) EGFR (test code = 50 mL/min/1.73 [place] [address]-0) NOT ACCURATE CREATININE CLEARANCE IN PREDICTING GLOMERULAR FILTRATION RATE . ESTIMATED GFR I S NOT APPLICABLE FOR DIALYSIS PATIENTS. IWONA (test code = IWONA) Harp Repairer ID - EDASI Lab Interpretation Abnormal (test code = 08879-3) [facility] HospitalMagnesium2020-12-02 05:10:00 Test Item Value Reference Range Interpretation Comments Magnesium (test code = 2.0 mg/dL 1.6-2.6 34726-4) IWONA (test code = IWONA) Harp Repairer ID - EDASI Lab Interpretation (test Normal code = 21733-3) [facility] HospitalPhosphorus2020-12-02 05:10:00 Test Item Value Reference Range Interpretation Comments Phosphorus (test code = 2.4 mg/dL 2.3-4.7 7-1) IWONA (test code = IWONA) Harp Repairer ID - EDASI Lab Interpretation (test Normal code = 64572-8) [facility] HospitalBASIC METABOLIC [id number] 05:10:00 Test Item Value Reference Range Interpretation [...] S NOT APPLICABLE FOR DIALYSIS PATIEN TS. Harp Repairer ID - [id number] 05:10:00 Test Item Value Reference Range Interpretation Comments MAGNESIUM (BEAKER) (test code = 2.0 mg/dL 1.6-2.6 627) Harp Repairer ID - [id number] 05:10:00 Test Item Value Reference Range Interpretation Comments PHOSPHORUS (BEAKER) (test code = 2.4 mg/dL 2.3-4.7 604) Harp Repairer ID - EDASICBC (Hemogram only)2020-10-31 04:57:00 Test Item Value Reference Range Interpretation Comments WBC (test code = 6690-2) 7.6 See_Comment [A utomated message] The system FriendFeed generated this result transmitted ref erence range: 3.5 - 10 .5 K/L. The refe rence range was not u sed to interpret this result as normal/abnor mal. RBC (test code = 789-8) 4.57 See_Comment L [Au tomated message] The system FriendFeed generated this result transmitted ref erence range: 4.63 - 6 .08 M/L. The refe rence range was not u sed to interpret this result as normal/abnor mal. MCHC (test code = 786-4) 33.7 See_Comment [A utomated message] The system FriendFeed generated this result transmitted ref erence range: [...] L [Aut omated message] 777-3) The system FriendFeed generated this result transmitted ref erence range: 150 - 45 0 K/CU MM. The referen ce range was not u sed to interpret this result as normal/abnor mal. MPV (test code = 11.9 fL 9.4-12.4 37552-4) nRBC (test code = 413) 0 See_Comment [Aut omated message] The system FriendFeed generated this result transmitted ref erence range: 0 - 0 /1 00 WBC. The refere nce range was not u sed to interpret this result as normal/abnor mal. Lab Interpretation (test Abnormal code = 59200-9) [facility] (HEMOGRAM ONLY)2020-10-31 04:57:00 Test Item [...] WBC 0-0 (test code = 413) Vitamin [id number] 05:54:00 Test Item Value Reference Range Interpretation Comments Vitamin B12 (test code = 279 pg/mL 355-682 7030-9) IWONA (test code = IWONA) Harp Repairer ID - EDASI Lab Interpretation (test Normal code = 25275-8) [facility] HospitalVITAMIN [id number] 05:54:00 Test Item Value Reference Range Interpretation Comments VITAMIN B12 (BEAKER) (test code = 279 pg/mL 213-816 774) Harp Repairer ID - EDASIPeripheral Blood Smear - Hold [id number] 05:31:00 Test Item Value Reference Range Interpretation Comments Peripheral Smear Save (test 2 smear saved code = 1815) [facility] HospitalPERIPHERAL BLOOD SMEAR - HOLD [id number] 05:31:00 Test Item Value Reference Range Interpretation Comments PERIPHERAL SMEAR SAVE (BEAKER) 2 smear saved (test code = 1815) BASIC METABOLIC [id number] 05:29:00 Test Item Value Reference Range Interpretation [...] S NOT APPLICABLE FOR DIALYSIS PATIEN TS. Harp Repairer ID - [id number] 05:29:00 Test Item Value Reference Range Interpretation Comments MAGNESIUM (BEAKER) (test code = 2.0 mg/dL 1.6-2.6 627) Harp Repairer ID - [id number] 05:29:00 Test Item Value Reference Range Interpretation Comments PHOSPHORUS (BEAKER) (test code = 2.0 mg/dL 2.3-4.7 L 604) Harp Repairer ID - CRDLHI-loklr8369-42-01 05:09:00 Test Item Value Reference Range Interpretation Comments D-Dimer, Quant (test 1.73 See_Comment H [Autom ated code = 77077-2) message] The system which generated this result [...] range. Lab Interpretation Abnormal (test code = 81163-2) [facility] HospitalD-[id number] 05:09:00 Test Item Value Reference Range Interpretation [...] exclusion of thrombosis is within 95-100% range. Sjuyvescug4747-21-02 05:07:00 Test Item Value Reference Range Interpretation Comments Fibrinogen (test code = 3255-7) 435 mg/dl 225-434 H Lab Interpretation (test code = Abnormal 63525-3) [facility] HospitalPT/[id number] 05:07:00 Test Item Value Reference Interpretation Comments Range Protime (test code = 14.5 See_Comment H [Autom ated 5902-2) message] The system which generated this result transmitted reference range : 11.9 - 14.2 seconds. The reference range was not used to interpret this result as normal/abnormal . INR (test code = 1.17 See_Comment [Automated 7861-6) message] The system which generated this result transmitted reference range : <=5.90. The reference range was not used to interpret this result as normal/abnormal . PTT (test code = 33.7 See_Comment [Automated 24927-7) message] The system which generated this result [...] valves. Lab Interpretation Abnormal (test code = 59180-6) [facility] HospitalFIBRINOGEN2020-12-01 05:07:00 Test Item Value Reference Range Interpretation Comments FIBRINOGEN LEVEL (BEAKER) (test 435 mg/dl 225-434 H code = 658) PT/[id number] 05:07:00 Test Item Value Reference Range Interpretation [...] /100 WBC 0-0 (test code = 413) [id number] 14:22:00 Test Item Value Reference Range Interpretation Comments Case Report (test code Medical Cytology = 104) Report Case: [id number] Authorizing Provider: Asuncion Perdomo MD Collected: 10/29/2020 10:10 AM Ordering Location: [address] Received: 10/29/2020 12:05 PM Service Pathologist: Suman Taylor MD Specimen: Nephrostomy, Left DIAGNOSIS (test code = v7hmuLOmZBWnl5anLZOeiG 3220) FuZzEwMzNcZnRuYmpcdWMx IHtccnRmMVxlcGljOTIwMF tedbAbMNHkqIIqC3Hqwnnv FQdiOD1pBT2poTfqtPDijC DmGPLfQmFjf1duj199dSHd l5mvUYQBueherBq7oYjtT1 4no4A1TqqrK33kcAEsVPpr zSUaizyjnaVuJF5CMRdBJ8 WFT63BMOYVWPJCXQORFhuQ IQLBLFAWPPApM2vJA8QUAE 1GLFrxlJCqUDLmHA4dVrIV Pb1HSMKlA3aOJMBMUOpFWW xTIhZWOJsPGuMWKCKYK77k IEZFVyBBVFlQSUNBTCBDRU fOGxeyF0KDRVqHUX7CUvRI U3ZjCRbDFZQOLuYOLCMPJz 9OBHZSGPWKSNZUHwTGMr0L ZQlbCAH5a8eyaHQqRCDdjI UxODAwMFxhbnNpXGRlZmxh zmvpAIFyTHT4wuRyPWKhCH xlALUvGIxnVr9zgNPhcPak OeIkJTZnv4ipywSWwfnrnI e4a8jaUARrFaS7wPLlVYjv L2jldjAbgFWvXUCaFWy1kS 80NBGipA0uvWYdIGvgxqHf GnY7BDfbVFItIqR4XGWfhC HvYTIlV8mkHWAlFOfaQXZe EOsrnBAxVJA2bFxni2L0yD VzaGVldHtcZjBcZnMyMiBO c5UxMBs2xDxhF2ZlBIHjKx N9jWAxKQNwBXnzKLAsNJAa awM3qJ79NWabikO4qXUbf4 Avl52js743iH3wkZUjAPW4 ESSaCBBmaJYtOYPbNNA8IE TuxTJoB3zfIITlAR2vohss EFafFKezGLHnzDZ4SMTitF MxY3DcVPEaPMtaUGFrrvs2 FrJfGj0kcOCojGetJSqvy6 est4djmZVpWkw9HZKwSmVm TaksZIaeb7Xdg9bdFSFuij 5bCTU0lOCsrXvsp2E4nFHx OZDzoXPbOOMuIM2jxFYuZK TowN2wgcnpSLOzCjIjjueq EEYdgPjsleHmHd4duJswJD W0KFynJ9twhZ5nXbA9JLtj H3vkiG5uBMv4MXioRKFriL L5yiR9NBIsnJXmJ0GocJ5e MAPrCD7imko4o0fpAUQ0NR fnEXTnDtK6tfY5HCCgvNYf MSTnxFesAMnya947QLL3Dr BtKUHml2AvL7LuoXznL35h xSjtM27wCZErsKggkO0gzZ rrkB3kPsSiTcHlTWdxbUbu CT1pHBHlQ1xwuKIcDETyJB XdD5fxUaGmnT8alNerMJrt sgRxHRCeMal9UYHkpTUoTI MqKxc3AMAoGEUsR38htvdg UXZ7mO2vx1lzb1HfUElyAU M5OFUty82nASeanhK6RVnu No3dPeRjJAA0KSzcPWQ8bV == CPT Code(s) (test code l6gtmZPnLXDdfFM7HzFgGD = 3357) Tev8qje4MbjAUwvHBxEZgg lBBfybHvdf91yJU7xW30HH 4hRLEnNjO5OHCretB7Kwf8 XSJiNUSaiKHeD357r6pfd3 ynjgFjmNC5yDzoIFZlEGUh YWluXGZzMjAgODgxMDhccG FyfQ== CLINICAL DATA (test l3lscGWaJLXfvEI5JfEuTI code = 3355) Fyj7mff8NwiFRlvMEoIHve bRHazzCqym26fUU4bU28TK 6kDFIkUsD2TCJhjiW5Wvw5 FQJmFNBeqHRhH688o9vrj1 uviaQqgVQ6bKwrKQCfGVBw TBdhFNCoLwAdG8Qks9LmtX WvONK9aoijBlRCRIo0TASy hdBmaLTex5cnOYOyqSOub6 PgIWGkpejqAVE5bfC8OGHi uIDgGVZoNuGQoulbANI9JF JldGVudGlvbjsgIENUIGFi RO7gRCp0dTSwk0x3kW74nS Pqs8X5QKOhnrZpHNO9RXWq j3dgFEErEJfkXq0iEZQhsK QdB9heMkDaNQYxGRvuFAXj QSEfcPEdnWBtaPR9djB4NB SsYTHepJWaE4DxHBfeInNk C25gbX8hSIepqXDjDOJxRO ccYCq5nVHdQK7zDWAyAGgm cmVndWxhciBibGFkZGVyIH dhbGwsIHNtYWxsIHNjbGVy v4EeWdEhb7P4wbJshpL9wV NfqiexlTTztP2btZKmwU8k IGlsaWFjIGJvbmVccGFyfQ == SPECIMEN SOURCE (test c1fstBPdRQPyhZQ0JkGlYA code = 3377) Rbr6gbj1ArmVUhtKLrMOpw wNXdyaIpdi00uMI0kV63QH 5sAIXuOtF7GSTxdmM3Iir6 NQFkHCKriVHnX772y4zjf7 brhvMquBR6vKziEVThWKBv YWluXGZzMjAgTkVQSFJPU1 BYUPoeQTmXGlUgMFSFVL2S IEZMVUlEXHBhcn0= GROSS DESCRIPTION (test u1psjHRqCYNyuQE0ToCwNX code = 3366) Efj7bkp4PpdCHmfXQyJFdw yBSsnyYatb62gCR2gY23DQ 4yJQWxLrB5MGIiexC4Axa6 JMSjEZHmtLKiX645o0yea5 veweJsrIA1tTfvOOWaMCWo RVenLNXqPmSwIhSfBUa1FH VsJwIinOivZgqxm4A5PQBo bReuBmUsbwKaYEJaUNW5RC G7aW9roAgxr5uxXKR6 MICROSCOPIC DESCRIPTION b6cpzODaJGTzrDZ1CoVoKZ (test code = 3371) Tix0upd2EihULncYVnMJuy wUYjjiXchy48kRD3vZ27OZ 9zEIZtRqM0PTUxwqQ9Isl1 NOMlLODnhWOgI784t3kfh4 ivleGqjEZ6gSokNNLaJAYk TEktJLWrKeIfDQMkQt1taV VkLiBccGFyfQ== STATEMENT OF ADEQUACY Satisfactory (test code = 2757) Gross assessment was [facility] performed at ([facility], = 2777) Department of Pathology, [address] [place] [place] [address], Technical component was [facility] performed at ([facility], = 2778) Department of Pathology, [address] [place] [address], Professional component [facility] was performed at ([facility], code = 2779) Department of Pathology, [address] [place] [place] [address], [facility]CYT[facility]Y2020-11-30 14:22:00Medical Cytology Report Case: [id number] Aut horizing Provider: Asuncion Perdomo MD Collected: 10/29/2020 10:10 AM Ordering Location: [address] Received: 10/29/2020 12:05 PM Service Pathologist: Suman Taylor MD Specimen: Nephrostomy, Left NEPHROSTOMY, LEFT, URINE FLUID (CYTOSPINS): - NECROSIS WITH CELLULAR DEGENERATION, FEW ATYPICAL CELLS, SUSPICIOUS FOR HIGH GRADE UROTHELIAL CARCINOMA Signing Pathologist Direct Phone Line: [phone] signed by Suman Taylor MD on 10/29/2020 at 2:22 [id number] hematuria; L hydronephrosis, hydroureter; L ureteral mass; Urinary retention; CT abd/pelvis with/without contrast showed 08q35nr enhancing mass in the mid left ureter, enlarged left common iliac chain lymph node, irregular bladder wall, small sclerotic focus in the right posterior iliac boneNEPHROSTOMY, LEFT, URINE FLUIDReceived 20 ml bloody fluid; prepared 4 cytospinsPerformed. [facility]actoryB[facility], Department of Pathology, [address] [place] [address], [facility], Department of Pathology, [address] [place] [address], [facility], Department of Pathology, [address] [place] [address], Vevwanolug Blood Smear - Path [id number] 13:34:00 Test Item Value Reference Range Interpretation Comments Pathologist Review (test Cell counts code = 2640) confirmed. Pathologist: (test code Марина Trevino M.D. = 2849) (electronic signature) [facility]PER[facility] - PATHOLOGIST REVIEW 2020-10-29 13:34:00 Test Item Value Reference Range Interpretation Comments PERIPHERAL SMR REVIEW Cell counts confirmed. (BEAKER) (test code = 2640) [id number] Марина Trevino M.D. (BEAKER) (test code = (electronic signature) 2849) ANG, NEPHROSTOMY, PERC, EXTERNAL [id number] 13:04:00Patient on Eliquis, last dose 10/26 AMReason for exam:->Left hydronephrosis with distal ureteral mass. Please place PCNU and collect upper tract cytology [facility] : 1935 Sex: MFINAL REPORT Nephroureterostomy catheter placement, left, 10/29/2020. Clinical History: Left ureteral mass and hydronephrosis. Modality: Fluoroscopy and sonography. Plant Inspector: Chary. Pumper Gauger Apprentice: Nikolas Doshi. Sedation: Versed 1 mg and [...] wire into the renal pelvis. A 4 Djiboutian Berenstein catheter and Glidewire were advanced down the ureter past the left ureteral mass and into the bladder. The Glidewire was exchanged for an Amplatz wire which was positioned within the bladder. After a small skin incision was made, the soft tissue tract was dilated an 8 Djiboutian dilator. An 8 Djiboutian x 26 cm nephroureterostomy catheter was advanced [...] placement with conscious sedation. Signed: Silverio Doyle Verified Date/Time: 10/29/2020 13:04:36 Reading Location: [facility] P048 Angio Body Reading Room Percutaneous Nephrostomy - Ext. Drain [id number] 13:04:00Interface, External Ris In - 10/29/2020 1:06 PM CSTFINAL REPORT Nephroureterostomy catheter placement, left, 10/29/2020. Clinical History: Left ureteral mass and hydronephrosis. Modality: Fluoroscopy and sonography. Plant Inspector: Chary. Pumper Gauger Apprentice: Nikolas Doshi. Sedation: Versed 1 mg and [...] wire into the renal pelvis. A 4 Djiboutian Berenstein catheter and Glidewire were advanced down the ureter past the left ureteral mass and into the bladder. The Glidewire was exchanged for an Amplatz wire which was positioned within the bladder. After a small skin incision was made, the soft tissue tract was dilated an 8 Djiboutian dilator. An 8 Djiboutian x26 cm nephroureterostomy catheter was advanced over [...] MDReport Verified Date/Time: 10/29/2020 13:04:36 Reading Location: [address] Body Reading Room [facility]CY[facility]2020-11-30 11:15:00Medical Cytology Report Case: [id number] Authorizing Provider: Asuncion Perdomo MD Collected: 10/27/2020 11:18 AM Ordering Location: [address] Received: 10/29/2020 09:17 AM Service Pathologist: Suman Taylor MD Specimen: Urine, Bladder Wash URINE, BLADDER WASHING (CYTOSPINS): - ATYPICAL DEGENERATED UROTHELIAL CELLS SUSPICIOUS FOR HIGH GRADE UROTHELIAL CARCINOMA Signing Pathologist Direct Phone Line: [phone] signed by Suman Taylor MD on 10/29/2020 at 11:15 [id number] with left hydronephrosis and distal ureteralmass is here for PCNU placementURINE, BLADDER WASHINGReceived 50 mls blood-tinged fluid; prepared 4 cytospinsPerformed. SatisfactoryB[facility], Department of Pathology, [address] [place] [address], [facility], Department of [facility]ology, [address] [place] [address], [facility]esbMount[facility], Department of Pathology, [address] [place] [address], SDQNW METABOLIC PANEL 2020-10-29 05:11:00 Test Item Value [...] S NOT APPLICABLE FOR DIALYSIS PATIEN TS. Harp Repairer ID - [id number] 05:11:00 Test Item Value Reference Range Interpretation Comments MAGNESIUM (BEAKER) (test code = 2.0 mg/dL 1.6-2.6 627) Harp Repairer ID - PIBBCFJNQESWZVE2791-46-54 05:11:00 Test Item Value Reference Range Interpretation Comments PHOSPHORUS (BEAKER) (test code = 2.1 mg/dL 2.3-4.7 L 604) Harp Repairer ID - EDASIProthrombin time/[id number] 04:58:00 Test Item Value Reference Interpretation Comments Range Protime (test code = 15.6 See_Comment H [Autom ated 5902-2) message] The [...] valves. Lab Interpretation Abnormal (test code = 07656-8) [facility] HospitalPROTHROMBIN TIME/[id number] 04:58:00 Test Item Value Reference Range Interpretation [...] WBC 0-0 (test code = 413) Platelet [id number] 14:40:00 Test Item Value Reference Range Interpretation Comments Platelets (test code 93 See_Comment L plt cou nt = 777-3) performed on purple top. [Automated message] The system which generated this result transmit srinath reference range : 150 - 450 K/CU MM. The reference range was not u sed to interpret th is result as normal/abnormal . IWONA (test code = IWONA) Harp Repairer ID - [id number] ID - [id number] Lab Interpretation Abnormal (test code = 83534-0) [facility] HospitalPLATELET [id number] 14:40:00 Test Item Value Reference Range Interpretation Comments PLATELET COUNT 93 K/CU MM 150-450 L plt count per formed on (BEAKER) (test code = purple top. 756) Harp Repairer ID - 6000Operator ID - [id number] 06:09:00 Test Item Value Reference Range Interpretation Comments MAGNESIUM (BEAKER) (test code = 1.9 mg/dL 1.6-2.6 627) Harp Repairer ID - EDASIBASIC METABOLIC [id number] 06:09:00 Test Item Value Reference Range Interpretation [...] S NOT APPLICABLE FOR DIALYSIS PATIEN TS. Harp Repairer ID - [id number] 06:09:00 Test Item Value Reference Range Interpretation Comments PHOSPHORUS (BEAKER) (test code = 2.3 mg/dL 2.3-4.7 604) Harp Repairer ID - EDASICBC (HEMOGRAM ONLY)2020-10-28 05:20:00 Test [...] /100 WBC 0-0 (test code = 413) [id number] 14:15:00 Test Item Value Reference Range Interpretation Comments Haptoglobin (test code = 48 mg/dL 14 4542-7) IWONA (test code = IWONA) Harp Repairer ID - REMBERTO M Lab Interpretation (test Normal code = 05289-6) [facility] HospitalHAPTOGLOBIN2020-11-28 14:15:00 Test Item Value Reference Range Interpretation Comments HAPTOGLOBIN (BEAKER) (test code = 48 mg/dL 45-867 295) Harp Repairer ID - REMBERTO MManual Yhrqwyboiuze6875-56-89 13:21:00 Test Item Value Reference Range Interpretation Comments % Neutros (manual) (test 72 % code = 1359) % Lymphs (manual) (test 17 % code = 1360) % Monos (manual) (test 9 % code = 1361) % Eos (manual) (test 2 % code = 1362) # Neutros (manual) (test 4.75 See_Comment [A utomated message] code = 1365) The system FriendFeed generated this result transmitted ref erence range: 1.80 - 8 .00 K/L. The refe rence range was not u sed to interpret this result as normal/abnor mal. # Lymphs (manual) (test 1.12 See_Comment L [Au tomated message] code = 1366) The system FriendFeed generated this result transmitted ref erence range: 1.48 - 4 .50 K/L. The refe rence range was not u sed to interpret this result as normal/abnor mal. # Monos (manual) (test 0.59 See_Comment [Aut omated message] code = 1367) The system FriendFeed generated this result transmitted ref erence range: 0.00 - 1 .30 K/L. The refe rence range was not u sed to interpret this result as normal/abnor mal. # Eos (manual) (test 0.13 See_Comment [Autom ated message] code = 1368) The system [employer] generated this result transmitted ref erence range: 0.00 - 0 .50 K/L. The refe rence range was not u sed to interpret this result as normal/abnor mal. Total Counted (test code 100 = 1351) WBC Morphology (test Normal code = 487) Platelet Morphology Normal (test code = 486) RBC Morphology (test Normal code = 762) Lab Interpretation (test Abnormal code = 08087-7) [facility](MANUAL DIFFERENTIAL)2020-10-27 13:21:00 Test Item Value Reference Range [...] (test code Normal = 762) Hepatic function [id number] 13:13:00 Test Item Value Reference Range Interpretation Comments Protein, Total (test 6.2 See_Comment [Autom ated code = 2885-2) message] The system which generated this result transmit srinath reference range : 6.0 - 8.3 gm/dL . The reference range was not u sed to interpret th is result as normal/abnormal . Albumin (test code = 3.4 g/dL 3.5-5 L 23114-8) Total Bilirubin (test 0.7 mg/dL 0.2-1.2 code = 1975-2) Bilirubin, Direct 0.4 mg/dL 0.1-0.5 (test code = 1968-7) Alkaline Phosphatase 45 U/L 40-150 (test code = 6768-6) AST (test code = 20 U/L 5-34 1920-8) ALT (test code = 9 U/L 6-55 1742-6) IWONA (test code = IWONA) Harp Repairer MAL [facility] Interpretation Abnormal (test code = 37337-8) [facility] 13:13:00 Test Item Value Reference Range Interpretation Comments LDH (test code = 2532-0) 299 U/L 125-220 H IWONA (test code = IWONA) Harp Repairer ID - REMBERTO M Lab Interpretation (test Abnormal code = 34412-2) [facility] [id number] 13:13:00 Test Item Value Reference Range Interpretation [...] (test code = 9 U/L 6-55 347) Harp Repairer ID - REMBERTO MLACTATE DEHYDROGENASE (LDH)2020-10-27 13:13:00 Test Item Value Reference Range Interpretation Comments LACTATE DEHYDROGENASE (BEAKER) (test 299 U/L 125-220 H code = 635) Harp Repairer ID - REMBERTO MReticulocyte [id number] 13:00:00 Test Item Value Reference Range Interpretation Comments % Retic (test code = 1.3 % 0.5-1.8 15575-1) IWONA (test code = IWONA) Harp Repairer ID - [id number] Lab Interpretation (test Normal code = 16996-1) [facility] [id number] 13:00:00 Test Item Value Reference Range Interpretation Comments RETICULOCYTE COUNT PCT (BEAKER) (test 1.3 % 0.5-1.8 code = 575) Harp Repairer ID - [id number]/[id number], RENAL, [id number] 10:56:00Reason for exam:- >Eval for hydro; has hematuria [facility] : 1935 Sex: MFINAL [...] dronephrosis. Bilateral simple renal cysts. Signed: Naif Gutiérrezeport Verified Date/Time: 10/27/2020 10:56:29 Reading Location: [address] Body Reading Room renal [id number] 10:56:00Interface, External Ris In - 10/27/2020 10:58 [...] Bilateral simple renal cysts. Signed: Naif Gutiérrez MDReport Verified Date/Time: 10/27/2020 10:56:29 Reading Location: [facility] B1 C013Y CT Body [facility] (Asymptomatic ONLY)2020-10-27 10:28:00 Test Item Value Reference Range Interpretation Comments SARS-COV2/RT-PCR Negative Not Detected, (test code = Negative, See 36249-9) external report for linked test SARS-COV-2 [facility] PERFORMING LAB (test code = 48595-7) IWONA (test code = Negative result for [...] of the Act. Fact Sheet for Healthcare Providers:https://www.[employer].com/sites/default/f dariel/product/documents/F act_Sheet_HC_Providers_L oqv_MRBH-XgW-0.pdf Fact Sheet for Healthcare Patients:https://www.Booodl/sites/default/fi les/product/documents/Fa ct_Sheet_Patients_Lyra_S ARS-CoV-2.pdf Performing Laboratory:[facility] [place] [address] [facility]2020-10-27 10:28:00 Test Item Value Reference Range Interpretation Comments SARS-COV2/RT-PCR (test Negative Not Detected, Negative, code = 0366793) See external report for linked test SARS-COV-2 PERFORMING LAB [facility] (test code = 2635453) Negative result for this test determines that [...] 564(g) of the Act.Fact Sheet for Healthcare Providers:https://www.Moobia/sites/default/files/product/documents/Fact_Karen maldonadoe_VX_Kdfnrifoq_Qwyq_WHEL-DjQ-4.pdfFact Sheet for Healthcare Patients:https://www.Moobia/sites/default/files/product/ documents/Bxhs_Eeugd_Ibgptixs_Vrhk_LWKQ-EfV-9.pdfPerforming Laboratory:[facility], [place] [address]MB, [id number] 10:26:00Three phase urogramNon-contrastArterialDelayed phase (15 mins after contrast load)Unlisted Reason for Exam - Click Yes and Enter Reason Below- >NoPlease specify:->Urogram [facility] : 1935 Sex: MFINAL [...] Gutiérrez Verified Date/Time: 10/27/2020 10:26:29 Reading Location: [facility] [id number] CT Body Reading Room CT abdomen/pelvis without & with IV kxbnsccx4009-24-84 10:26:00Interface, External Ris In - 10/27/2020 12:10 [...] Gutiérrez Verified Date/Time: 10/27/2020 10:26:29 Reading Location: [place] [id number] CT Body Reading [facility] hsff3467-57-51 08:21:48Interface, External Ris In - 10/27/2020 8:21 AM CSTVentricular Rate 57 BPMAtrial Rate 242 BPMQRS Duration 82 msQ-T Interval 472 msQTC Calculation(Bazett) 459 msP [place] 61 degreesR [place] 30 degreesT Axis49 degreesAtrial flutter with variable A-V block Very poor baselineNonspecific ST abnormalityAbnormal ECGNo previous ECGs availableConfirmed by MD Duron Roberto ([id number]) on 10/27/2020 8:21:45 AM [facility]BASIC [facility]ABOLIC [id number] 05:16:00 Test Item Value Reference Range Interpretation [...] S NOT APPLICABLE FOR DIALYSIS PATIEN TS. Harp Repairer ID - [id number] 05:16:00 Test Item Value Reference Range Interpretation Comments MAGNESIUM (BEAKER) (test code = 1.9 mg/dL 1.6-2.6 627) Harp Repairer ID - [id number] 05:16:00 Test Item Value Reference Range Interpretation Comments PHOSPHORUS (BEAKER) (test code = 2.9 mg/dL 2.3-4.7 604) Harp Repairer ID - [id number] 05:04:00 Test Item Value Reference Range Interpretation Comments PTT (test code = 37.2 See_Comment H [Automated message] 76138-9) The system FriendFeed generated this result transmitted ref erence range: 22.5 - 3 6.0 seconds. The reference range was not used to int erpret this result as normal/abnormal . Lab Interpretation (test Abnormal code = 54601-5) [facility] HospitalAPTT2020-11-28 05:04:00 Test Item Value Reference Range Interpretation Comments PARTIAL THROMBOPLASTIN TIME 37.2 seconds 22.5-36.0 H (BEAKER) (test code = 760) PROTHROMBIN TIME/[id number] 05:03:00 Test Item Value Reference Range Interpretation [...] WBC 0-0 (test code = 413) ABORH, gkugbb4276-34-13 20:45:00 Test Item Value Reference Range Interpretation Comments ABO Grouping (test code = 2588) A Rh Factor (test code = 2589) POS [facility] HospitalType and screen, fzgdifysh3600-27-58 19:10:00 Test Item Value Reference Range Interpretation Comments ABO/RH AUTOMATED (BEAKER) (test A POSITIVE code = 2260) Ab Scrn (test code = 890-4) NEGATIVE [facility] HospitalUrinalysis w/Microscopic + Reflex to Culture 2020-10-26 19:08:00 Test Item Value Reference Range Interpretation Comments Color, UA (test code Crowley = 5778-6) Clarity, UA (test Hazy code = 5767-9) Specific [place], UA 1.015 1.001-1.035 (test code = 5811-5) pH, UA (test code = 6.0 5.0-8.0 5803-2) Protein, UA (test 30 mg/dL Negative A code = 56817-6) Glucose, UA (test Negative Negative code = 365) Ketones, UA (test Negative Negative code = 2514-8) Bilirubin, UA (test Negative Negative code = 74387-6) Blood, UA (test code Large Negative A = 29422-7) Nitrite, UA (test Negative Negative code = 5802-4) Leukocytes, UA (test Small Negative A code = 5799-2) Urobilinogen, UA 0.2 mg/dL 0.2-1 (test code = 09007-6) RBC, UA (test code = 1221 See_Comment [Autom ated 03088-3) message] The system which generated this result [...] . Bacteria, UA (test Many code = 44784-0) Mucus (test code = Rare 8247-9) Crystals, Urine (test Many code = 55177-9) Specimen Source (test code = 2795) IWONA (test code = IWONA) Harp Repairer ID - [auto]Harp Repairer ID - tech Lab Interpretation Abnormal (test code = 40819-9) [facility]UR[facility] W/ REFLEX URINE [id number] 19:08:00 Test Item Value Reference Range Interpretation Comments COLOR (BEAKER) (test code = 470) [place] CLARITY (BEAKER) (test code = 469) Hazy [...] = 1521) SOURCE(BEAKER) (test code = 2795) Harp Repairer ID - [auto]Harp Repairer ID - techComprehensive metabolic [id number] 18:51:00 Test Item Value Reference Range Interpretation Comments Protein, Total (test 7.4 See_Comment [Autom ated code = 2885-2) message] The system which generated this result transmit srinath reference range : 6.0 - 8.3 gm/dL . The reference range was not u sed to interpret th is result as normal/abnormal . Albumin (test code = 3.9 g/dL 3.5-5 96908-8) Alkaline Phosphatase 55 U/L 40-150 (test code = 6768-6) Total Bilirubin (test 1.1 mg/dL 0.2-1.2 code = 1975-2) Sodium (test code = 141 meq/L 380-184 3969-2) Potassium (test code 4.5 meq/L 3.5-5.1 = 2823-3) Chloride (test code = 107 meq/L 98-107 2075-0) CO2 (test code = 25 meq/L 22-2027-9) BUN (test code = 26 mg/dL 7-21 H 3094-0) Creatinine (test code 1.54 mg/dL 0.57-1.25 H = 2160-0) Glucose (test code = 86 mg/dL 70-105 2345-7) Calcium (test code = 9.4 mg/dL 8.4-10.2 82887-1) AST (test code = 20 U/L 5-34 1920-8) ALT (test code = 10 U/L 6-55 1742-6) EGFR (test code = 43 mL/min/1.73 [place] [address]-2) NOT ACCURATE CREATININE CLEARANCE IN PREDICTING GLOMERULAR FILTRATION RATE . ESTIMATED GFR I S NOT APPLICABLE FOR DIALYSIS PATIEN IWONA (test code = IWONA) Harp Repairer ID - DB Lab Interpretation Abnormal (test code = 93252-8) [facility] HospitalCOMPREHENSIVE METABOLIC [id number] 18:51:00 Test Item Value Reference Range Interpretation [...] = 382) CO2 (BEAKER) (test 25 meq/L -29 code = 355) BLOOD UREA NITROGEN 26 [...] S NOT APPLICABLE FOR DIALYSIS PATIEN TS. Harp Repairer ID - [id number] 18:51:00 Test Item Value Reference Range Interpretation Comments MAGNESIUM (BEAKER) (test code = 2.2 mg/dL 1.6-2.6 627) Harp Repairer ID - [id number] 18:51:00 Test Item Value Reference Range Interpretation Comments PHOSPHORUS (BEAKER) (test code = 3.3 mg/dL 2.3-4.7 604) Harp Repairer ID - DBCBC with platelet count + automated [id number] 18:28:00 Test Item Value Reference Range Interpretation Comments WBC (test code = 6690-2) 5.1 See_Comment [A utomated message] The system FriendFeed generated this result transmitted ref erence range: 3.5 - 10 .5 K/L. The refe rence range was not u sed to interpret this result as normal/abnor mal. RBC (test code = 789-8) 4.78 See_Comment [Au tomated message] The system FriendFeed generated this result transmitted ref erence range: 4.63 - 6 .08 M/L. The refe rence range was not u sed to interpret this result as normal/abnor mal. MCHC (test code = 786-4) 32.5 See_Comment [A utomated message] The system FriendFeed generated this result transmitted ref erence range: [...] = 88 See_Comment L [Aut omated message] 777-3) The system FriendFeed generated this result transmitted ref erence range: 150 - 45 0 K/CU MM. The referen ce range was not u sed to interpret this result as normal/abnor mal. MPV (test code = 11.4 fL 9.4-12.4 89538-9) nRBC (test code = 413) 0 See_Comment [Aut omated message] The system FriendFeed generated this result transmitted ref erence range: [...] See_Comment [Aut omated message] 670) The system FriendFeed generated this result transmitted ref erence range: 1.78 - 5 .38 K/L. The refe rence range was not u sed to interpret this result as normal/abnor mal. # Lymphs (test code = 1.28 See_Comment L [Auto mated message] 414) The system FriendFeed generated this result transmitted ref erence range: 1.32 - 3 .57 K/L. The refe rence range was not u sed to interpret this result as normal/abnor mal. # Monos (test code = 0.41 See_Comment [Autom ated message] 415) The system FriendFeed generated this result transmitted ref erence range: 0.30 - 0 .82 K/L. The refe rence range was not u sed to interpret this result as normal/abnor mal. # Eos (test code = 416) 0.17 See_Comment [Au tomated message] The system FriendFeed generated this result transmitted ref erence range: 0.04 - 0 .54 K/L. The refe rence range was not u sed to interpret this result as normal/abnor mal. # Baso (test code = 417) 0.06 See_Comment [A utomated message] The system FriendFeed generated this result transmitted ref erence range: 0.01 - 0 .08 K/L. The refe rence range was not u sed to interpret this result as normal/abnor mal. Immature 0 % 0-1 Granulocytes-Relative (test code = 2801) Lab Interpretation (test Abnormal code = 79287-4) [facility] W/PLT COUNT & AUTO LTWNJUFCXBNW4848-05-61 18:28:00 Test Item Value Reference Range Interpretation [...] PERCENT (BEAKER) (test code = 2801) CHEM [id number] 06:42:002.5[facility]annCHEM ZLRPB6288-45-04 06:42:0058 [facility]annCHEM FVLPR7521-70-03 06:42:0017[facility]annCHEM PANEL 2016-12-26 06:42:0095[facility]annCHEM MRRPJ2544-11-38 06:42:003.7[facility]annCHEM ZZWMK6499-90-47 06:42:25395Cdhwmxae HermannCHEM SLGAQ8826-68-37 06:42:001.17[facility]annCHEM NDWOS3689-49-41 06:42:0027[facility]annCHEM LJWUE8918-20-86 06:42:57292Sfrzxdgd HermannCHEM UKWWF3207-93-99 06:42:008.4 [facility]annCHEM ISZMY2541-72-75 06:42:0010.7[facility]annCHEM PANEL 2016-12-26 06:42:002.2[facility] UiquockDVTTXNDOZU9164-05-23 06:42:001.1[facility] HzzrbwkMEBNEYCQWR0711-95-50 06:42:006.9[facility] QynpvcyKYWJEWLUEN8370-20-54 06:42:000.2[facility] UcyufmbNFTRZWSJEM8292-98-86 06:42:000.1[facility] Jair FXUXRLWPWN1816-97-44 06:42:000.6[facility] VxcnspyZAYCFXHSUB3745-36-91 06:42:000.7 [facility] FngdpvvPBSTAVSUDH5379-20-99 06:42:0077.6[facility] HermannHEMATOLOGY 2016-12-26 06:42:007.1[facility] VdftjkvDJWOGJFUGH9308-40-11 06:42:001.9[facility] IssdgchDFCQFPMLDK4985-37-42 06:42:0012.7[facility] KjickkpZWESWYAWFE4054-94-20 06:42:009.1[facility] RxcxdclXRGGLHCJAF2370-08-15 06:42:60260Kgphwnmk Jair FPIUMNUPYP5470-70-24 06:42:0013.8[facility] XythjfbNBZGEIPIYK2329-82-13 06:42:00 8.9[facility] NahwlbtNDCNDZZOBB4088-83-19 06:42:004.84[facility]annHEMATOLOGY 2016-12-26 06:42:0043.3[facility] GwcgheeEEMAVIKJGC2839-64-57 06:42:00 Test Item Value Reference Range Interpretation Comments MCH (test code = MCH) 30.0 pg 27.0-31.0 [facility] VafddhgJMSPBVXZXB6272-43-62 06:42:0014.5[facility]annHEMATOLOGY 2016-12-26 06:42:0033.6[facility] LedfolrIPQDSAIOWO7920-21-56 06:42:0089.4[facility] HermannPARATHYROID XDPKNEO6910-14-67 06:42:001.15[facility] HermannPARATHYROID AFZYBDY5026-62-83 06:42:001.19[facility]annURINE AND PUDDK8432-97-22 00:01:00 Negative *NA*(12/25/16 6:01 PM)[facility] AAXME9050-87-18 00:01:00 6.0[facility] CFDFN4510-63-53 00:01:00Clear (12/25/16 6:01 PM) [facility] QMLPQ4933-83-82 00:01:00Yellow *NA*(12/25/16 6:01 PM) [facility] NCOAP3468-00-73 00:01:001.012[facility] OAIWI7831-22-39 00:01:001[facility] JQRXU9391-24-49 00:01:00 Negative (12/25/16 6:01 PM)[facility] ZDEEZ2037-64-43 00:01:009 [facility] FNRZR5371-85-44 00:01:00Large *ABN*(12/25/16 6:01 PM) [facility] ULPPV9206-70-90 00:01:00Negative (12/25/16 6:01 PM) [facility]annBACTERIAL - EOKXSEZZ2529-18-50 19:53:00Negative (12/25/16 1:53 PM)[facility]annCHEM OPHQK5791-03-68 19:53:0066[facility]annCHEM PANEL 2016-12-25 19:53:008.6[facility]annCHEM BMRDQ6283-05-58 19:53:0013.0[facility]annCHEM ZEKFC6637-32-10 19:53:004.0[facility]annCHEM OWYVG8077-97-98 19:53:72391Hhrvanao HermannCHEM MWWTT3387-93-23 19:53:0024[facility]annCHEM UIWRY7803-18-64 19:53:001.05[facility]annCHEM VQNVY4947-34-74 19:53:0014 [facility]annCHEM BKATP6727-01-62 19:53:77490Ajmbqhmk HermannCHEM PANEL 2016-12-25 19:53:15786Dhuvnhqd HermannCHEM FENLV4269-82-96 19:53:002.4[facility]annCHEM MGSMS6643-38-16 06:16:003.0[facility]annCHEM YKQGF4360-73-19 06:16:001.0[facility]annCHEM OZSVL3699-78-07 06:16:0010.4[facility]annCHEM BMGYY5986-67-82 06:16:0020[facility]annCHEM HTSYJ3118-46-31 06:16:0062 [facility]annCHE[facility] DJOEJ9370-11-76 06:16:0024[facility]annCHEM PANEL 2016-12-25 06:16:005.9[facility]annCHEM LLZND6687-37-70 06:16:007.9[facility]annCHEM YRBLO5537-12-90 06:16:0012[facility]annCHEM WVSGG3996-78-91 06:16:0015[facility]annCHEM QKRPM1550-78-68 06:16:0051[facility]annCHEM NYQAG1834-70-16 06:16:002.9[facility]annCHEM CRGNR5586-27-77 06:16:000.8 [facility]annCHEM FGOVV9302-09-45 06:16:92771Ofitoncn HermannCHEM PANEL 2016-12-25 06:16:0022[facility] HermannCHEM TBGPW2437-91-70 06:16:001.11[facility]annCHEM GQHQZ8584-09-39 06:16:37730Ufivcyou HermannCHEM PPRHZ0035-00-07 06:16:003.4[facility]annCHEM HKYVN0737-47-33 06:16:27537Owvgvxbm HermannCHEM QJPDX9160-39-94 06:16:002.1[facility]annCHEM DITAX3048-31-81 06:16:002.2 [facility] XhokntwDOSRSSKBIV0911-35-93 06:16:000.1[facility]annHEMATOLOGY 2016-12-25 06:16:000.2[facility] HkurvueYMXNDOQBJW9208-20-19 06:16:000.7[facility] XdzcoskTEOJYEFLTH7393-32-73 06:16:001.5[facility] SofvouyPHQSWAAJIA0335-27-88 06:16:002.4[facility] CdkurgwJHZZHUTCFM6955-50-80 06:16:006.8[facility] EPGQINDOMF2282-47-97 06:16:007.7[facility] NyywfoaKGIYMMIRYK4231-77-11 06:16:001.1 [facility] AihhwhfWVEPIPIKYW8642-53-13 06:16:0074.9[facility] HermannHEMATOLOGY 2016-12-25 06:16:0014.8[facility] WtpbghwMHUVCYYNTS1923-12-06 06:16:0034.9[facility] CzefdwiUKJJZZJADM4042-28-98 06:16:00 Test Item Value Reference Range Interpretation Comments MCH (test code = MCH) 30.8 pg 27.0-31.0 [facility] CemgfkuXJKYXVZRYR5679-75-93 06:16:71700Vkmiphvh HermannHEMATOLOGY 2016-12-25 06:16:0014.1[facility] VfzknluUDIINOUDEC2329-00-89 06:16:004.74[facility] EpbwajrCQUWVGMSCZ3652-56-82 06:16:0010.3[facility] XkbiwglRWOPZCTCSB7826-28-61 06:16:009.3[facility] TzvipvfXBYYBDVKVR1600-78-44 06:16:0014.6[facility] QMSNAQRYCT8175-89-78 06:16:0088.3[facility] UrcyrzaOVMQSOMQEV5511-03-91 06:16:00 41.8[facility] HermannPARATHYROID ZABMDTR6232-81-06 06:16:001.16[facility] PARATHYROID PXRVQAL1054-24-79 06:16:001.17[facility] HermannCHEM GYBYQ3821-05-39 18:57:000.2[facility] HermannCHEM PTJXR9833-45-25 18:57:0051[facility]annCHEM YEHBJ6499-94-47 18:57:001.0[facility] HermannCHEM LEMUA2624-13-70 18:57:0012 [facility]annCHEM JPDGL4057-08-83 18:57:0013[facility] HermannCHEM PANEL 2016-12-24 18:57:003.1[facility] HermannCHEM BBYQN1798-34-85 18:57:006.2[facility] HermannCHEM KUUZW2118-90-31 18:57:003.1[facility] HermannCHEM DYZZK5339-97-92 18:57:001.0[facility] HermannCHEM TOFNU9059-28-33 18:57:000.8[facility] OYOBSK8722-66-78 18:57:002.65[facility] LokalqeAGQLQB7423-25-28 18:57:0052[facility] AupcjcfTKRGFX5649-56-66 18:57:37450Axwsacio ZccpwmhQLXOPR2897-29-59 18:57:0012 [facility] XorzqjtYFAKEQ6108-30-91 18:57:0059[facility] FkvcxoiENNRJZ8060-81-47 18:57:0074[facility] HermannSPECIAL ISMNIPVXK8194-65-53 18:57:005.1[facility] HermannBLOOD BANK LJUNNGZ4499-24-78 17:20:00Negative (12/24/16 11:20 AM)[facility] HermannCHEM DJMTE1491-85-43 17:05:001.1[facility] HermannCARDIAC UEFCILL8332-12-22 17:01:00<0.02[facility] HermannCARDIAC ZNATBSV1625-42-38 17:01:00<0.5 [facility] HermannCARDIAC UVXIDHS5997-38-84 17:01:0036[facility] HermannCARDIAC AOBJIRS9805-79-30 17:01:00<1.4[facility] YszxokbZEZPHJANSN6861-58-06 17:01:00 Test Item Value Reference Range Interpretation Comments PT (test code = PT) 14.9 s 12.0-14.7 [facility] MrkuttzYDMKVAMRSY1544-90-94 17:01:001.15[facility] HermannHEMATOLOGY 2016-12-24 17:01:00 Test Item Value Reference Range Interpretation Comments PTT (test code = PTT) 32.1 s 22.9-35.8 Memorial KmwmrxkVMXWVKWPAQ2487-47-78 17:01:0089.5[facility] HermannHEMATOLOGY 2016-12-24 17:01:0014.1[facility] PvxvepaCNZIHZBTYD9685-79-21 17:01:0033.6[facility] JeqhrzaWJMREWZOYO6550-59-73 17:01:00 Test Item Value Reference Range Interpretation Comments MCH (test code = MCH) 30.1 pg 27.0-31.0 [facility] OmrspzbREWAGDICSX0456-72-68 17:01:008.6[facility] HermannHEMATOLOGY 2016-12-24 17:01:21778Tmnzfmjw XocbjwmXFXJGEXTJP0424-53-74 17:01:0041.7[facility] ZnfzegvCCWFPDPZHA6518-23-58 17:01:0014.0[facility] NnbhzpzZVQWCETOFO1268-79-77 17:01:004.65[facility] QslmmkhBCKFCDBQZT6661-93-90 17:01:009.3[facility] JCYUILMADT5429-55-04 17:01:005.3[facility] YsxhfepGEISIZQHTT3382-92-84 17:01:002.8 [facility] ExcgiphULDBQSGPKQ6478-96-82 17:01:000.8[facility] HermannHEMATOLOGY 2016-12-24 17:01:0011.1[facility] EshilsyRTEBMNHMKL7395-88-23 17:01:000.3[facility] LgpcalcRTYEZDMGNM9341-02-27 17:01:000.1[facility] QamgqexYIRUQPHPWK7363-20-05 17:01:007.4[facility] FtqynhgUQVSPZVAHF0236-12-83 17:01:001.0[facility] ABYMTLOLGG1375-72-38 17:01:000.5[facility] ExggzazMENLJYXEHI7409-10-25 17:01:00 80.0[facility]
[2021-02-17 11:07] LABS: Absolute Lymphocytes (CBC) 0.7 K/uL (0.7-4.9); Basophils % 0.7 % (0-1.3); Hematocrit 33.5 % (39.6-49.0); Lymphocytes % 10.5 % (15.3-44.8); MPV 10.5 fL (7.6-11.3); RBC Red Blood Cell Count 3.68 M/uL (4.33-5.43)
[2021-02-17 11:31] LABS: Albumin 2.2 g/dL (3.4-5.0); Bilirubin Direct 0.2 mg/dL (0-0.2); Bilirubin Total 0.7 mg/dL (0.2-1.0); Potassium 3.8 mmol/L (3.5-5.1); Protein, Total 5.5 g/dL (6.4-8.2)
[2021-02-17 12:07] LABS: Blood Morphology Comment NOT SEEN (NOT SEEN); Platelet Estimate DECR; White Blood Cell Scan OK (OK)
--- NOTE | 2021-02-17 13:15 | EDPHYS ---
Physician Documentation [facility] Name: Madi Manning Age: 85 yrs Sex: Male : 1935 Arrival Date: 02/17/2021 Time: 10:03 Bed 7 Private MD: ED Physician Sintia Hankins HPI: 02/17 11:22 This 85 yrs old Male presents to ER via Wheelchair with complaints of Problem ma2 With Urinary Catheter. 11:22 The patient complains of pain in the left mid back. The pain does not radiate. Onset: ma2 The symptoms/episode began/occurred suddenly, 2 day(s) ago. Onset: The symptoms/episode began/occurred suddenly. Associated signs and symptoms: Pertinent negatives: dysuria, urinary frequency, hematuria, pain radiating to the lower extremities. patient has bladder ca and has L nephrostomy tube since September, he accidently pulled the tube while trying to get out of bed.. . Historical: - Allergies: 10:14 No Known Allergies; aa5 - PMHx: 10:14 Atrial Fib; Bladder cancer; CVA; 12/2015; enlarged prostate; Hypertension; Kidney aa5 stones; - PSHx: 10:14 back sx; prostate sx; Hernia repair; L nephrostomy tube; aa5 - Immunization history:: Adult Immunizations up to date. - Social history:: Patient/guardian denies using alcohol, street drugs, The patient lives with family, Smoking status: Patient denies any tobacco usage or history of. - Family history:: not pertinent. ROS: 11:22 Constitutional: Negative for fever, chills, and weight loss. ma2 11:22 All other systems are negative. Exam: 11:22 Constitutional: This is a well developed, well nourished patient who is awake, alert, ma2 and in no acute distress. Chest/axilla: Normal chest wall appearance and motion. Nontender with no deformity. No lesions are appreciated. Cardiovascular: Regular rate and rhythm with a normal S1 and S2. No gallops, murmurs, or rubs. Normal PMI, no JVD. No pulse deficits. Respiratory: Lungs have equal breath sounds bilaterally, clear to auscultation and percussion. No rales, rhonchi or wheezes noted. No increased work of breathing, no retractions or nasal flaring. Abdomen/GI: Soft, non-tender, with normal bowel sounds. No distension or tympany. No guarding or rebound. No evidence of tenderness throughout. Back: left nephrostomy tube is pulled completely,, tube site is dry and i ngood order. No spinal tenderness. No costovertebral tenderness. Full range of motion. Skin: Warm, dry with normal turgor. Normal color with no rashes, no lesions, and no evidence of cellulitis. MS/ Extremity: Pulses equal, no cyanosis. Neurovascular intact. Full, normal range of motion. Vital Signs: 10:14 BP 108 / 73; Pulse 99; Resp 17; Temp 98.7(O); Pulse Ox 100% ; bp 11:24 BP 118 / 62; Pulse 82; Resp 16; Pulse Ox 100% ; bp 12:31 BP 122 / 65; Pulse 87; Resp 16; Pulse Ox 94% ; bp 13:51 BP 134 / 86; Pulse 71; Resp 17; Temp 98.5; Pulse Ox 97% ; bp MDM: 10:15 Patient medically screened. [facility] 11:22 Differential diagnosis: nephrolithiasis, pyelonephritis, UTI, bladder ca, paged dr. andi Alcazar urologist. 13:08 Data reviewed: vital signs, nurses notes. Counseling: I had a detailed discussion with andi the patient and/or guardian regarding: the historical points, exam findings, and any diagnostic results supporting the discharge/admit diagnosis, the presence of at least one elevated blood pressure reading (>120/80) during this emergency department visit, the need to transfer to another facility. Response to treatment: There is no appreciated change of the patient's symptoms at this time. 13:08 ED course: discussed with dr. alcazar who is not available and on vacation, discussed ma2 with dr. Bates urologist at [facility] who recommends transfer to [facility]. as he is not available in [place], he recommends transfer to [facility]. however patient would like to be transferred to [facility], accepted by dr. castillo at [facility] . 02/17 10:42 Order name: Basic Metabolic Panel [facility] 02/17 10:42 Order name: CBC with Diff [facility] 02/17 10:42 Order name: Hepatic Function [facility] 02/17 10:42 Order name: Lipase [facility] 02/17 10:42 Order name: IV Saline Lock; Complete Time: 11:02 [facility] 02/17 12:10 Order name: CBC Smear Scan [facility] 02/17 10:42 Order name: Labs collected and sent; Complete Time: 11:02 [facility] Administered Medications: No medications were administered Disposition: 02/17/21 13:14 Transfer ordered to Other Acute Care Facility. 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 - Reason for transfer: Higher level of care. - Accepting physician is Dr. Castillo, Urologist [facility] . - Condition is Stable. - Problem is new. - Symptoms are unchanged. Signatures: Dispatcher [employer] [facility] Karmen Polo, RN RN aa5 Nemesio Ga RN RN bp Sintia Hankins MD MD ma2 Corrections: (The following items were deleted from the chart) 13:55 13:14 02/17/2021 13:14 Transfer ordered to Other Acute Care Facility. 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 Reason for transfer: Higher level of care. Accepting physician is Dr. Castillo, Urologist [facility] . Condition is Stable. Problem is new. Symptoms are unchanged. ma2
--- NOTE | 2021-02-17 13:15 | ER ---
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 Pt reports hx of aa5 bladder cancer with treatments at [facility]. 10:14 Onset of symptoms was January 2021. aa5 10:14 Acuity: JOLANTA 3 aa5 10:14 Method Of Arrival: Wheelchair aa5 10:15 Coronavirus screen: At this time, the client does not indicate any symptoms associated bp with coronavirus-19. Ebola Screen: No symptoms or risks identified at this time. Initial Sepsis Screen: Does the patient meet any 2 criteria? No. Patient's initial sepsis screen is negative. Does the patient have a suspected source of infection? No. Patient's initial sepsis screen is negative. Risk Assessment: Do you want to hurt yourself or someone else? Patient reports no desire to harm self or others. Triage Assessment: 10:15 General: Appears distressed, uncomfortable, Behavior is cooperative, appropriate for bp age, anxious. Pain: Denies pain. EENT: No deficits noted. Neuro: No deficits noted. Cardiovascular: No deficits noted. Respiratory: No deficits noted. GI: No signs and/or symptoms were reported involving the gastrointestinal system. : Reports NEPHROSTOMY TUBE PULLED OUT. Derm: No deficits noted. Musculoskeletal: No deficits noted. Historical: - Allergies: 10:14 No Known Allergies; aa5 - PMHx: 10:14 Atrial Fib; Bladder cancer; CVA; 12/2015; enlarged prostate; Hypertension; Kidney aa5 stones; - PSHx: 10:14 back sx; prostate sx; Hernia repair; L nephrostomy tube; aa5 - Immunization history:: Adult Immunizations up to date. - Social history:: Patient/guardian denies using alcohol, street drugs, The patient lives with family, Smoking status: Patient denies any tobacco usage or history of. - Family history:: not pertinent. Screenin:15 Abuse screen: Denies threats or abuse. Denies injuries from another. Nutritional bp screening: No deficits noted. Tuberculosis screening: No symptoms or risk factors identified. Fall Risk None identified. Assessment: 10:15 General: SEE TRIAGE NOTE. bp 11:23 Reassessment: No changes from previously documented assessment. Patient and/or family bp updated on plan of care and expected duration. Pain level reassessed. Patient is alert, oriented x 3, equal unlabored respirations, skin warm/dry/pink. PT SEEN BY NEPHROLOGY. 12:31 Reassessment: No changes from previously documented assessment. Patient and/or family bp updated on plan of care and expected duration. Pain level reassessed. Patient is alert, oriented x 3, equal unlabored respirations, skin warm/dry/pink. UROLOGY C/S PENDING. 12:49 Reassessment: URO UNAVAILABLE. TRANSFER PENDING. bp 13:51 Reassessment: EMS AT B/S FOR TRANSPORT. bp Vital Signs: 10:14 BP 108 / 73; Pulse 99; Resp 17; Temp 98.7(O); Pulse Ox 100% ; bp 11:24 BP 118 / 62; Pulse 82; Resp 16; Pulse Ox 100% ; bp 12:31 BP 122 / 65; Pulse 87; Resp 16; Pulse Ox 94% ; bp 13:51 BP 134 / 86; Pulse 71; Resp 17; Temp 98.5; Pulse Ox 97% ; bp ED Course: 10:03 Patient arrived in ED. am2 10:14 Arm band placed on Patient placed in an exam room, on a stretcher. aa5 10:15 Sintia Hankins MD is Attending Physician. ma2 10:15 Patient has correct armband on for positive identification. Bed in low position. Call bp light in reach. Side rails up X2. 10:26 Triage completed. aa5 10:27 Nemesio Ga, JAYASHREE is Primary Nurse. bp 10:43 called and left message with Dr. Alcazar answering service at [phone]. eb 11:02 Initial lab(s) drawn, by me, sent to lab. Inserted saline lock: 20 gauge in right em1 antecubital area, using aseptic technique. Blood collected. 12:[address] Alcazar the urologist for Dr. Hankins for patient consultation. eb 12:[address] Bates who is covering for Dr. Alcazar for patient consultation. eb 13:[address] given [address] Dr. Loo. patient has been accepted to [facility] ER/ . Buddy Loo has accepted the patient in transfer without consultation. Report to be called to [phone]. 13:28 Aarti called at [phone] and notified about her husbands transfer as requested. eb 13:54 No provider procedures requiring assistance completed. Patient transferred, IV remains bp in place. Administered Medications: No medications were administered Outcome: 13:14 ER care complete, transfer ordered by MD. escamilla 13:54 Transferred by ground EMS to [facility]. bp 13:54 Condition: stable 13:54 Instructed on the need for transfer. 13:55 Patient left the ED. bp Signatures: Ignacio Muhammad em1 Karmen Polo, RN RN aa5 Yue Raza am2 Nemesio Ga RN RN bp Sintia Hankins MD MD ma2 Roseanna Rosa eb Corrections: (The following items were deleted from the chart) 10:44 10:14 Temp 98.7F Oral; aa5 bp
[2021-02-17 14:06] VITALS: BP 134/86; TEMP 98.5; O2SAT 97
== END 2021-02-17 13:55 ==
LOC: ER 10:02
DX: T83.022A Displacement of nephrostomy catheter, initial encounter (principal); C79.11 Secondary malignant neoplasm of bladder; I10 Essential (primary) hypertension; Z86.73 Personal history of transient ischemic attack (TIA), and cerebral infarction without residual deficits
CPT/HCPCS: 36415; 80048; 80076; 83690; 85025; 99285